=== PATIENT | female | born 1960 | race Caucasian/White ===

== ENCOUNTER 2017-05-13 08:10 | Day surgery (SDC) | payer OTHER ==
[~2017-05-13] VITALS: Ht 149.9 cm; Wt 56.0 kg
[~2017-05-13 08:10] MED LIST: CEFP500T PO
[2017-05-13] MEDS ORDERED: LIDOCAINE 1% MDV 20ML VIAL SQ PRN (08:30)
[2017-05-13] MEDS ORDERED: LR 1,000 ML IV ONE (08:30)
[2017-05-13] MEDS ORDERED: MIDAZOLAM INJ 2 MG/2 ML VIAL (J2250) As Ordered ONE (09:19)
[2017-05-13] MEDS ORDERED: SUCCINYLCHOLINE 100 MG/5 ML SYRINGE (J0330) As Ordered ONE (09:20)
[2017-05-13] MEDS ORDERED: PROPOFOL 200 MG/20 ML VIAL As Ordered ONE (09:20)
[2017-05-13] MEDS ORDERED: fentaNYL 250 MCG/5 ML INJECTION (J3010) As Ordered ONE (09:20)
[2017-05-13] MEDS ORDERED: dexameTHASONE 4 MG/ML 1ML VIAL (J1100) As Ordered ONE (09:23)
[2017-05-13] MEDS ORDERED: LIDOCAINE 2% INJ 100 MG/5 ML SDV (FOR ANES.) As Ordered ONE (09:23)
[2017-05-13] MEDS ORDERED: THROMBIN SOLN 20,000 UNITS KIT As Ordered ONE (10:31)
[2017-05-13] MEDS ORDERED: LIDOCAINE 1% MDV 20ML VIAL As Ordered ONE (10:31)
[2017-05-13] MEDS ORDERED: EPINEPHrine 1MG/10ML SYRINGE 1.5IN As Ordered ONE (10:32)
[2017-05-13] MEDS ORDERED: LR 1,000 ML IV SCH (12:00)
[2017-05-13] MEDS ORDERED: ONDANSETRON 4MG/2ML VIAL (J2405) IV PRN (12:00)
[2017-05-13] MEDS ORDERED: fentaNYL 100 MCG/2 ML INJECTION (J3010) IV PRN (12:00)
[2017-05-13 12:30] VITALS: BP 138/62
--- NOTE | 2017-05-13 12:30 | REP ---
PORTABLE CHEST: AP portable view of the chest is performed. I have no prior study for comparison. There appears to be consolidative collapse of the right upper lobe. There is elevation of the right hemidiaphragm. Linear atelectatic change is seen in the right lung base. There appears to be a right hilar mass. The left lung is free of infiltrate. The heart is normal in size. There is no pneumothorax. Signed by Ciro Gamboa MD 05/13/2017 03:48 P
--- NOTE | 2017-05-13 14:53 | RO ---
DATE OF PROCEDURE: 05/13/2017 PREOPERATIVE DIAGNOSES: Abnormal chest CT, right upper lobe mass. POSTPROCEDURE DIAGNOSES: Abnormal chest CT, right upper lobe mass. PROCEDURE: Bronchoscopy with endobronchial ultrasound and fine-needle aspiration. SURGEON: Edmund Zepeda DO ASSISTANT LIBRARIAN: MARTIN Sanchez ANESTHESIA: General. Please refer to their records for details. SPECIMENS OBTAINED: 1. Right upper lobe cytology brush. 2. Subcarinal node fine needle aspiration. 3. Right hilar node fine needle aspiration. 4. Right upper lobe endobronchial biopsy. Findings of a right upper lobe with airway obstruction. ESTIMATED BLOOD LOSS: 5-10 mL. No observed complications. DESCRIPTION OF PROCEDURE: After informed consent was reviewed with the patient in the preoperative area, the patient was brought back to operating room (OR) # 6. Time-out was performed with two patient identifiers identifying correct site, correct procedure. Patient was then placed under general anesthesia with an 8.5 endotracheal tube. The case was then handed over to me. Again, time-out was performed with two patient identifiers identifying correct site, correct procedure. Cetacaine spray was used to anesthetize the airway along with provide lubrication for the scope. The 1T190 bronchoscope was inserted into the endotracheal tube. All airways were viewed. Trachea was midline. Marcelina was sharp. Right and left mainstem bronchus was normal, except for minimal amounts of mucus. There was obvious abnormalities of the right upper lobe with complete occlusion of the right upper lobe with swollen tissue. The spur between the right upper lobe and the right lower lobe was full and splayed. The right middle lobe takeoff was [place], however, RB 4 and 5 were patent without endobronchial lesions. RB 6 through 10 were normal without endobronchial lesions. Left mainstem bronchus was normal. LB 1 through 10 was without endobronchial lesions. There was some banding and pitting on the left. Bronchoscope was then advanced into the right upper lobe. Cytology brush was advanced into the lesion. After cytology brushing was obtained, the scope was switched over to endobronchial ultrasound. Fine-needle aspiration was performed , first of the subcarinal node in separate CytoLyt from the then hilar node which was sampled, which was placed in separate CytoLyt. After adequate sampling, endobronchial ultrasound was removed. The 1T190 bronchoscope was then reinserted, airways were suctioned of heme, and forceps biopsies were taken. After assurance of hemostasis and adequate sampling, the bronchoscope was removed, and the patient was extubated and is in recovery. Postprocedure chest x-ray is pending. [facility]
== END 2017-05-13 12:35 | disposition home or self-care (01) ==
LOC: M SDC 08:10
PROVIDERS: ATTEND Internal Medicine Pulmonary Disease
DX: R91.8 Other nonspecific abnormal finding of lung field (principal); R94.2 Abnormal results of pulmonary function studies; Z87.891 Personal history of nicotine dependence; Z78.0 Asymptomatic menopausal state

== ENCOUNTER 2017-05-17 09:00 | Outpatient (RCR) | payer OTHER ==
--- NOTE | 2017-05-18 14:15 | RADONC ---
RADIATION ONCOLOGY CONSULTATION NOTE DATE: 05/17/2017 CHART NUMBER: [id number]. DIAGNOSIS: Right lung cancer. STAGE: Pending. ECOG PERFORMANCE STATUS: Zero. CONSULTATION NOTE: Ms. Elder a very pleasant, 56-year-old white female who is presenting to us today on an urgent basis with what appears to be impending SVC syndrome. HISTORY OF PRESENT ILLNESS: The patient was in her usual state of health until she recently developed a cough. She was seen by Dr. Zepeda on 05/11/2017 and an x-ray was done on 05/13/2017, which showed a consolidative atelectasis involving the right upper lobe. A CT scan was done on 05/04/2017 and showed an 8.5 cm x 6.7 cm x 6.4 cm mass in the right upper lobe of the lung. No significant lymphadenopathy was seen. No evidence of metastatic disease was seen. The patient was referred to Dr. Zepeda, who reviewed her scans and thought she had what appeared to be developing SVC syndrome. On 05/13/2017, the patient underwent endobronchial biopsy and fine needle aspiration of a right hilar lymph node. Both revealed moderate to poorly differentiated adenocarcinoma. The report was completed yesterday and we are seeing the patient this morning for consultation regarding the possibility of urgent radiation to her right upper lung mass. Pending so far are pulmonary function tests, a differential lung scan, a PET scan, MRI of the brain and other staging studies. PAST MEDICAL HISTORY: The patient's past medical history is noncontributory. She has been generally good health. ALLERGIES: The patient has NO KNOWN DRUG ALLERGIES. SOCIAL HISTORY: The patient has smoked for approximately 30 years. She quit in 2006. She drinks alcohol socially. FAMILY HISTORY: The patient's family history is negative for lung cancer or other malignancies. REVIEW OF SYSTEMS: The patient's review of systems is noncontributory. Denies nausea, vomiting, fevers, chills, night sweats, diplopia, headaches, anxiety or depression, anorexia, weight loss, visual disturbances, chest pain, urinary or bowel difficulties, bone pain, or neurological problems. PHYSICAL EXAMINATION: The patient is a well-developed, well-nourished, 56-year-old white woman, in no acute distress. HEENT exam is normocephalic, atraumatic. Extraocular movements are intact. There is no palpable cervical, supraclavicular, infraclavicular, axillary, or inguinal lymphadenopathy present. Lungs are clear to auscultation and percussion. Heart has a regular rate and rhythm. Abdomen is benign with no hepatosplenomegaly, masses, or tenderness. Skeletal examination reveals no tenderness to pressure or percussion of the bony skeleton. Extremities reveal no clubbing, cyanosis, or edema. Neurologic exam is grossly intact, as is the remainder of the physical examination. ASSESSMENT: Under the circumstances, clearly we plan on initiating radiation therapy to this patient. I believe she is a candidate for urgent radiation and I have so informed her. I have discussed with the patient in detail the potential benefits as well as possible acute and chronic sequelae of external beam radiation therapy. We have discussed logistics of treatment planning, simulation and subsequent fractionated daily radiation treatments. I have scheduled the patient for simulation this morning and radiation treatments will begin today. In light of the fact this is week, I plan on delivering two fractions of 300 cGy each to deliver 600 centigrade between today and tomorrow. In the meantime, she is scheduled for PET scanning for further staging as well as pulmonary function tests and differential lung scans. I have set her up for a medical oncology consult as well. Pending the results of those studies, fine tuning of her radiation carrera can be undertaken next week. The two fractions of 300 are well below our lung tolerance and should cause no subsequent problems with breathing in the future should her pulmonary functions be lower than anticipated. Once again, in summary, we are beginning radiation to this patient today and are planning to deliver two fractions of 600 cGy each this week. Following the holiday, we will lower the daily dose to 200 cGy per day and make fine adjustments to the treatment field if indicated pending the results of the PET scan. We await the expert opinions of our medical oncology group once her medical oncology consult is completed. Thank you for allowing us to participate that therapy in the care of this very pleasant woman. If I could be of any further assistance or provide you any information, please free to contact me anytime. As always, warm regards. cc this goes Dr. José spann a cc this goes to tato goncalves cc this will go to Dr. Kayla salter why that is it on [facility] consultation note from today cc: MD Ravi Hebert MD Rory Sears, DO FCCP MTDD
--- NOTE | 2017-05-24 08:59 | RADONC ---
RADIATION ONCOLOGY PROGRESS NOTE DATE OF SERVICE: 05/23/2017 CHART NUMBER: [id number] PROGRESS NOTE: Ms. Elder is presently at a dose of 800 cGy to her lung and is tolerating treatments quite well at this point with no complaints related to her radiation therapy. She reports that she might have a little bit of improvement in her breathing. REVIEW OF SYSTEMS: The patient's review of systems is positive for some shortness of breath but is otherwise noncontributory. She denies nausea, vomiting, fevers, chills, night sweats, diplopia, headaches, anxiety or depression, anorexia, weight loss, visual disturbances, chest pain, urinary or bowel difficulties, bone pain, or neurological problems. PHYSICAL EXAMINATION The patient's skin is in good condition with no evidence of radiation change present. There is no moist or dry desquamation. The remainder of her physical exam remains unchanged. Ms. Elder is tolerating treatments quite well, and radiation will continue as scheduled. We are still awaiting the results of the differential lung scan. An MRI of the brain is also being awaited for further staging. I did speak with Dr. Corazon Meade today on the phone. The patient saw her, and Dr. Meade is planning to begin chemotherapy on Tuesday for concomitant chemoradiation.
== END 2017-05-26 ==
LOC: M ONCR 09:00
PROVIDERS: ATTEND Radiology Radiation Oncology
DX: C34.11 Malignant neoplasm of upper lobe, right bronchus or lung (principal)

== ENCOUNTER → 2017-05-17 | Outpatient (CLI) | payer OTHER | LOC: M RAD 08:56 | PROVIDERS: ATTEND Radiology Radiation Oncology | DX: C34.11 Malignant neoplasm of upper lobe, right bronchus or lung (principal) ==

== ENCOUNTER → 2017-05-17 | Outpatient (CLI) | payer OTHER ==
--- NOTE | 2017-05-17 10:03 | PFTRPT ---
Site: [facility], [address] [place] [address], [id number] ID: [id number] Name: KALPESH FERRARA MEHRAN Doctor: Edmund Zepeda D.O. Tech: Ferdinand TAN RRT Age: 56 Sex: Female Race: Height: 59.50 Inches Weight: 122.00 Lbs BSA: 1.50 Diagnosis: C34.11 test meet the ATS standards for acceptability and repeatability. Pt was given four puffs of albuterol for postbronchodilator. Pre-Bronch Post-Bronch Pred Actual %Pred Actual %Chng SPIROMETRY FVC (L) 2.91 1.86 63 2.06 10 FEV1 (L) 2.28 1.23 53 1.45 17 FEV1/FVC (%) 79 66 83 70 6 FEF 25% (L/sec) 4.63 1.66 35 2.33 40 FEF 50% (L/sec) 3.78 0.95 25 1.37 43 FEF 75% (L/sec) 1.33 0.37 27 0.69 88 FEF 25-75% (L/sec) 2.32 0.78 33 1.23 56 FEF Max (L/sec) 5.88 2.48 42 2.71 9 FIVC (L) 1.77 2.10 18 FIF 50% (L/sec) 3.29 2.03 61 2.73 34 FIF Max (L/sec) 2.12 2.80 31 MVV (L/min) 85 42 49 LUNG VOLUMES SVC (L) 2.72 1.98 72 IC (L) 1.95 1.55 79 ERV (L) 0.77 0.44 56 TGV (L) 2.43 2.15 88 RV (Pleth) (L) 1.66 1.72 103 TLC (Pleth) (L) 4.38 3.70 84 RV/TLC (Pleth) (%) 37 46 125 DIFFUSION DLCOunc (ml/min/mmHg) 20.38 13.65 66 DLCOcor (ml/min/mmHg) 20.38 13.60 66 DL/VA (ml/min/mmHg/L) 4.65 4.82 103 VA (L) 4.38 2.82 64 AIRWAYS RESISTANCE Raw (cmH2O/L/s) 1.86 4.48 240 Gaw (L/s/cmH2O) 1.03 0.22 21 sRaw (cmH2O*s) 4.76 11.32 237 sGaw (1/cmH2O*s) 0.20 0.09 44 BLOOD GASES Hgb (gm/dL) 13.5
== END ==
LOC: M CARPUL 09:25
PROVIDERS: ATTEND Internal Medicine Pulmonary Disease
DX: C34.11 Malignant neoplasm of upper lobe, right bronchus or lung (principal)

== ENCOUNTER → 2017-05-17 | Outpatient (CLI) | payer OTHER ==
--- NOTE | 2017-05-17 10:50 | RADONC ---
RADIATION ONCOLOGY SIMULATION NOTE DATE OF SERVICE: 05/17/2017 CHART NUMBER: [id number] Ms. Elder was taken to the CT scan for CT simulation of her right lung field. CT was accomplished without difficulty or discomfort. Radiation treatment planning is underway, and radiation treatments will begin today. An immobilization device was created and will be used throughout the course of treatment. It was created without difficulty or discomfort. I was physically present throughout the course of CT simulation. We will treat the patient today and tomorrow prior to the . I have also ordered differential lung scans, pulmonary function tests, PET scans, and other workup to be undertaken. Final adjustments to the field can be made as indicated. I have also set up a consultation with medical oncology.
== END ==
LOC: M ONCR 08:05
PROVIDERS: ATTEND Radiology Radiation Oncology
DX: C34.90 Malignant neoplasm of unspecified part of unspecified bronchus or lung (principal)

== ENCOUNTER → 2017-05-18 | Outpatient (CLI) | payer OTHER ==
--- NOTE | 2017-05-18 12:21 | REP ---
PET/CT: History: Malignant neoplasm right upper lobe. Abnormal CT recently from [facility]. This is not available. Comparisons: Comparison is made with CT chest images from CT localization acquisition done May 17, 2017. TECHNIQUE: 50 minutes following the intravenous injection of a 10.6 mCi dose of F-18 FDG, three-dimensional PET scintigraphy is acquired from the skull base to the proximal thighs. Triplanar noncontrast CT scanning is acquired through the same anatomic range for attenuation correction, and image registration with scan parameters optimized to minimize radiation exposure to the patient. PET scintigraphy and CT datasets were fused and displayed on a workstation with multiplanar and projection display capability. PET/CT Findings: There is a large mass in the right suprahilar and right upper lobe distribution medially adjacent the mediastinum which is hypermetabolic. Hypermetabolic uptake is seen in a predominantly annular pattern suggesting some central necrosis in this mass. Maximum standard uptake value within the lesion is 16.9. The hypermetabolic mass measures 6.9 cm in greatest anteroposterior dimension. There is postobstructive collapse of the right upper lobe anterior and peripheral to this mass lesion. The right upper lobe bronchus is obstructed and the right middle lobe bronchus is narrowed. Some of the collapse is in the right middle lobe as well. No adrenal hypermetabolic uptake is seen. No other abnormal thoracic hypermetabolic uptake is observed. Head and neck soft tissues are unremarkable. In the abdomen and pelvis, no abnormality is seen. Impression: 6.8 cm hypermetabolic mass right suprahilar region with bronchial obstruction and post obstructive collapse right upper lobe and right middle lobe. No other abnormal hypermetabolic uptake seen. Signed by Villa Quijano MD 05/18/2017 01:40 P
== END ==
LOC: M PLARAD 09:28
PROVIDERS: ATTEND Internal Medicine Pulmonary Disease
DX: C34.90 Malignant neoplasm of unspecified part of unspecified bronchus or lung (principal)
CPT/HCPCS: 78815; A9552

== ENCOUNTER → 2017-05-23 | Outpatient (REF) | payer OTHER ==
[2017-05-23 18:02] LABS: INR 0.91
== END ==
LOC: M LAB REF 17:36
PROVIDERS: ATTEND Internal Medicine Medical Oncology
DX: C34.90 Malignant neoplasm of unspecified part of unspecified bronchus or lung (principal)

== ENCOUNTER 2017-05-27 14:12 | Outpatient (RCR) | payer OTHER | END 2017-06-26 | LOC: M ONCR 14:12 | DX: C34.11 Malignant neoplasm of upper lobe, right bronchus or lung (principal) | CPT/HCPCS: 77300 ==

== ENCOUNTER → 2017-05-30 | Outpatient (CLI) | payer OTHER ==
[~2017-05-30] MED LIST changes: +ADVA230A; +ADVA230A INH; +LEVO500T3; +LIDOCAINE 2% MDV 20 ML VIAL As Ordered ONE; +MIDAZOLAM INJ 2 MG/2 ML VIAL (J2250) As Ordered ONE; +MORP20SO; +MORP20SO PO; +NYST50SS; +NYST50SS SS; +ONDA8TAB7; +ONDA8TAB7 PO; +OXYC1TAB23 PO; +PANT20TA; +PANT20TA PO; +PERC5TAB12 PO; +PRED10TA2; +PRED10TA2 PO; +PROC10TA; +PROC10TA PO; +ceFAZolin 1GM INJ (J0690 PER 500MG) As Ordered ONE; +fentaNYL 100 MCG/2 ML INJECTION (J3010) As Ordered ONE
--- NOTE | 2017-06-15 10:45 | REPIR ---
DATE OF PROCEDURE: 05/30/2017 PREPROCEDURE DIAGNOSIS: Lung cancer, access required for chemotherapy. POSTPROCEDURE DIAGNOSIS: Lung cancer, access required for chemotherapy. PROCEDURE: Ultrasound and fluoroscopic guided left internal jugular vein 23 cm Port-a-Cath placement. SURGEON: Dr. Shira Ceballos. RETAIL BUYER: Debi Artis. ANESTHESIA: Local sedation with 2 mg versed, 50 mcg fentanyl, 20 mL of 2% lidocaine. Sedation time was from 1550 to 1605 for a total of 15 minutes with the sedation and cardiopulmonary monitoring performed by the RN in the room under my direct supervision. I was present for and directed the entire case. FLUORO TIME: 2.222 minutes. CONTRAST: None. PREOPERATIVE ANTIBIOTICS: 1 gram of Ancef. COMPLICATIONS: None. DRAINS: None. SPECIMENS: None. IMPLANTS: 23 cm left internal jugular vein Port-a-Cath. The patient is a 56-year-old female with lung cancer who requires chemotherapy. The patient will undergo placement of a Port-a-Cath for access for chemotherapy. Risks, benefits and alternative treatment options were discussed with the patient. DESCRIPTION OF PROCEDURE: The patient was taken to the angiography suite and placed supine on the angiography room table and then prepped and draped in a standard surgical fashion. Ultrasound was used to guide cannulation of the left internal jugular vein with real-time concurrent visualization of entry of the needle into the left internal jugular vein with a hard copy image preserved. The ultrasound showed the left internal jugular vein to be easily compressible, widely patent and free of thrombus. The micropuncture wire was then advanced through the micropuncture needle which was upsized to a micropuncture sheath. A J-wire, was advanced through the micropuncture sheath which was used to sequentially dilate the left internal jugular vein under fluoroscopic guidance and in introducer sheath positioned. The catheter had been tunneled from the incision in the left chest where the subcutaneous pocket was created to the entry site in the left internal jugular vein and then advanced through the introducer sheath which was peeled away and removed. The catheter was then placed under fluoroscopic guidance with the tip in the superior vena cava right atrial junction and then cut to 23 cm and attached to the port. The port was placed in the pocket and then the chest would was closed using #2-0 Vicryl in an inverted interrupted fashion. The puncture wound of the left neck was closed with #4-0 Monocryl in an inverted interrupted fashion. The port was accessed and noted to flush and aspirate easily. Dressings were then applied. The patient tolerated the procedure well. All instrument, sponge and needle counts were correct at the end of the case. There were no complications. Dr. Ceballos was present for and directed the entire case. The patient was transferred to the holding area and subsequently discharged. The port is stable for use for access. RADIOLOGIC SUPERVISION: The ultrasound was used to evaluate the left internal jugular vein, which was noted to be easily compressible, widely patent and free of thrombus. Ultrasound was used to guide cannulation of the left internal jugular vein with real-time concurrent visualization of entry of the needle into the left internal jugular vein performed with hard copy image preserved. The left internal jugular vein was the sequentially dilated under fluoroscopic guidance and the catheter positioned under fluoroscopic guidance. The final fluoroscopic image showed the catheter and port to be in good position and good alignment with no pneumothorax or hemothorax noted. The Port-a-Cath is stable for use for dialysis access.
== END | disposition home or self-care (01) ==
LOC: M IRPRO 14:21
PROVIDERS: ATTEND Surgery Vascular Surgery
DX: C34.90 Malignant neoplasm of unspecified part of unspecified bronchus or lung (principal)
CPT/HCPCS: 36561; 76937; 77001; 99152; C1788; C1894; J0690; J2250; J3010

== ENCOUNTER → 2017-05-31 | Outpatient (CLI) | payer OTHER ==
[~2017-05-31] MED LIST changes: -ADVA230A; -ADVA230A INH; -LEVO500T3; -LIDOCAINE 2% MDV 20 ML VIAL As Ordered ONE; -MIDAZOLAM INJ 2 MG/2 ML VIAL (J2250) As Ordered ONE; -MORP20SO; -MORP20SO PO; -NYST50SS; -NYST50SS SS; -ONDA8TAB7; -ONDA8TAB7 PO; -OXYC1TAB23 PO; -PANT20TA; -PANT20TA PO; -PERC5TAB12 PO; -PRED10TA2; -PRED10TA2 PO; -PROC10TA; -PROC10TA PO; -ceFAZolin 1GM INJ (J0690 PER 500MG) As Ordered ONE; -fentaNYL 100 MCG/2 ML INJECTION (J3010) As Ordered ONE
--- NOTE | 2017-05-31 18:54 | REP ---
Nuclear medicine lung. Differential function ventilation perfusion scan 05/31/2017. Clinical history: Lung carcinoma on the right. Comparison: Chest x-ray today. The patient received 1 mCi technetium 99m MAA via an IV. Followed by 2 mCi technetium 99m DTPA aerosol for ventilation. Anterior and posterior ventilation and perfusion images performed and differential counts for both phases were provided. Geometric mean perfusion: Left Right Upper 17.97% 9.68% Mid 34.77% 22.01% Lower 14.81% 0.76% PA metric mean ventilation: Left Right Upper 19.6% 14.93% Middle 42.47% 10.96% Lower 11.28% 0.75% Significant differences between the right and left lungs in the lower lung zones related to elevated diaphragm on the right. The major difference is the lesser perfusion and ventilation in the upper lobe on the right. Signed by Sahil Leon MD 05/31/2017 08:42 P
--- NOTE | 2017-06-01 07:10 | REP ---
CHEST X-RAY: CLINICAL: History of lung cancer. TECHNIQUE: PA and lateral. COMPARISON: 05/13/2017 FINDINGS: Postsurgical changes involving the right hemithorax are appreciated. Triangular opacification involving the right upper lung zone is slightly improved compared to the prior examination and may reflect postoperative changes or collapse of the right upper lobe. Elevation to the right hemidiaphragm is unchanged and consistent with volume loss due to recent surgery. The left hemithorax is well aerated and clear. The visualized portions of the mediastinum and cardiac silhouette are stable and within normal limits. Infusaport identified with tip in the SVC. Skeletal structure is intact. IMPRESSION: Right upper lobe opacification may reflect postoperative changes and/or partial collapse. Findings may be slightly improved when compared to the previous examination. Signed by Trevor Marshall MD 06/05/2017 11:56 P
== END ==
LOC: M RAD 12:44
PROVIDERS: ATTEND Radiology Radiation Oncology
DX: C34.90 Malignant neoplasm of unspecified part of unspecified bronchus or lung (principal)

== ENCOUNTER → 2017-06-17 | Outpatient (CLI) | payer OTHER ==
[~2017-06-17] MED LIST changes: +ADVA230A; +ADVA230A INH; +LEVO500T3; +MORP20SO; +MORP20SO PO; +NYST50SS; +NYST50SS SS; +ONDA8TAB7; +ONDA8TAB7 PO; +OXYC1TAB23 PO; +PANT20TA; +PANT20TA PO; +PERC5TAB12 PO; +PRED10TA2; +PRED10TA2 PO; +PROC10TA; +PROC10TA PO; +PROHANCE 279.3MG/ML 15ML VIAL (A9576) As Ordered ONE
--- NOTE | 2017-06-22 09:44 | REP ---
MR BRAIN WITHOUT AND WITH CONTRAST: HISTORY: Lung carcinoma. CONTRAST: ProHance 10.8 mL Several punctate areas of increased signal intensity on T2-weighted images are present in the subcortical white matter. This represents small vessel ischemic disease. There is no intraparenchymal hemorrhage, infarct, mass or midline shift. There is no abnormal enhancement. The ventricular system is normal in appearance. There is no extracerebral collection. The sinuses are clear. IMPRESSION: Minimal small vessel ischemic disease. Signed by Karthikeyan Paige MD 06/22/2017 10:08 A
== END ==
LOC: M RAD 14:13
PROVIDERS: ATTEND Radiology Radiation Oncology
DX: C34.91 Malignant neoplasm of unspecified part of right bronchus or lung (principal); I73.9 Peripheral vascular disease, unspecified
CPT/HCPCS: 70553; A9576

== ENCOUNTER 2017-06-19 12:02 | Emergency (ER) | payer OTHER ==
[2017-06-19] MEDS: NS 1,000 ML IV ×2 (13:34→15:48)
[2017-06-19] MEDS: MORPHINE 2 MG/ML 1ML SYRINGE IV ×4 (13:34→16:27)
[2017-06-19] MEDS: ONDANSETRON 4MG/2ML VIAL (J2405) IV (13:34)
[2017-06-19 13:44] LABS: BASO % 0.9 % (0.0-1.0); EOS % 0.9 % (0.0-3.0); LYMPH # 0.3 10^3/uL (1.5-4.5); LYMPH % 24.5 % (24.0-44.0); MEAN CORPUSCULAR HEMOGLOBIN 29.5 pg (27.0-33.0); MEAN CORPUSCULAR HGB CONC 33.6 g/dl (32.0-36.5); MEAN CORPUSCULAR VOLUME 87.9 fl (80.0-96.0); MONO # 0.3 10^3/uL (0.0-0.8); MONO % 29.2 % (0.0-5.0); NEUTROPHILS % 44.5 % (36.0-66.0); PLATELET COUNT, AUTOMATED 164 10^3/uL (150-450); RED CELL DISTRIBUTION WIDTH 12.5 % (11.5-14.5)
[2017-06-19 13:58] LABS: LACTIC ACID SEPSIS PROTOCOL 0.9 MMOL/L (0.4-2.0)
[2017-06-19 13:58] LABS: ALBUMIN 3.4 GM/DL (3.2-5.2); ALBUMIN/GLOBULIN RATIO 0.81 (1.00-1.93); ALKALINE PHOSPHATASE 78 U/L (45-117); ALT/SGPT 31 U/L (12-78); ANION GAP 11 MEQ/L (8-16); AST/SGOT 27 U/L (7-37); BILIRUBIN,DIRECT 0.1 MG/DL (0.0-0.2); BILIRUBIN,TOTAL 0.4 MG/DL (0.2-1.0); BLOOD UREA NITROGEN 33 MG/DL (7-18); CARBON DIOXIDE LEVEL 25 MEQ/L (21-32); CHLORIDE LEVEL 104 MEQ/L (98-107); CREATININE FOR GFR 0.63 MG/DL (0.55-1.02); GLOMERULAR FILTRATION RATE > 60.0 (>51); GLUCOSE, FASTING 81 MG/DL (70-105); POTASSIUM SERUM 3.6 MEQ/L (3.5-5.1); SODIUM LEVEL 140 MEQ/L (136-145); TOTAL PROTEIN 7.6 GM/DL (6.4-8.2)
[2017-06-19 13:59] LABS: INR 0.96
[2017-06-19 14:07] LABS: NEUTROPHILS # 0.5 10^3/uL (1.8-7.7); POS COUNT POS FLAG; POSITIVE DIFF POS FLAG; WHITE BLOOD COUNT 1.1 10^3/uL (4.0-10.0)
[2017-06-19] MEDS: AQUAPHOR **100GM** OINT TOP (17:05)
== END 2017-06-19 17:09 | disposition home or self-care (01) ==
LOC: M ED 12:02
DX: E86.0 Dehydration (principal); D72.819 Decreased white blood cell count, unspecified; R07.0 Pain in throat; C34.90 Malignant neoplasm of unspecified part of unspecified bronchus or lung; Z87.891 Personal history of nicotine dependence
CPT/HCPCS: J2405

== ENCOUNTER 2017-06-20 23:17 | Inpatient (IN) | payer OTHER ==
[2017-06-21] MEDS: HYDROmorphone HCL 1 MG/ML SYRINGE (J1170) IV ×5 (01:15→19:51)
[2017-06-21] MEDS: NS 1,000 ML IV (01:15)
[2017-06-21 01:46] LABS: HEMATOCRIT 29.4 % (36.0-47.0); LYMPH # 0.3 10^3/uL (1.5-4.5); LYMPH % 24.8 % (24.0-44.0); MEAN CORPUSCULAR HEMOGLOBIN 29.8 pg (27.0-33.0); MEAN CORPUSCULAR HGB CONC 33.3 g/dl (32.0-36.5); MEAN CORPUSCULAR VOLUME 89.4 fl (80.0-96.0); MONO # 0.4 10^3/uL (0.0-0.8); MONO % 38.6 % (0.0-5.0); NEUTROPHILS % 33.6 % (36.0-66.0); PLATELET COUNT, AUTOMATED 156 10^3/uL (150-450); RED BLOOD COUNT 3.29 10^6/uL (4.00-5.40); RED CELL DISTRIBUTION WIDTH 12.4 % (11.5-14.5)
[2017-06-21 02:03] LABS: HEMOGLOBIN 9.8 g/dl (12.0-16.0); NEUTROPHILS # 0.3 10^3/uL (1.8-7.7); POS COUNT POS FLAG; POSITIVE DIFF POS FLAG
[2017-06-21 02:10] LABS: LACTIC ACID SEPSIS PROTOCOL 0.7 MMOL/L (0.4-2.0)
[2017-06-21] MEDS: PIPERACILLIN/TAZOBACTAM SOD 3.375 GM in APPROPRIATE DILUENT 1 EA IV ×4 (02:15→19:50)
[2017-06-21 02:35] LABS: ALBUMIN 3.1 GM/DL (3.2-5.2); ALBUMIN/GLOBULIN RATIO 1.03 (1.00-1.93); ALKALINE PHOSPHATASE 66 U/L (45-117); ALT/SGPT 21 U/L (12-78); ANION GAP 10 MEQ/L (8-16); AST/SGOT 22 U/L (7-37); BILIRUBIN,DIRECT 0.1 MG/DL (0.0-0.2); BILIRUBIN,TOTAL 0.3 MG/DL (0.2-1.0); BLOOD UREA NITROGEN 22 MG/DL (7-18); CALCIUM LEVEL 8.5 MG/DL (8.5-10.1); CARBON DIOXIDE LEVEL 25 MEQ/L (21-32); CHLORIDE LEVEL 110 MEQ/L (98-107); GLOMERULAR FILTRATION RATE > 60.0 (>51); GLUCOSE, FASTING 81 MG/DL (70-105); POTASSIUM SERUM 3.5 MEQ/L (3.5-5.1); SODIUM LEVEL 145 MEQ/L (136-145); TOTAL PROTEIN 6.1 GM/DL (6.4-8.2)
[2017-06-21] MEDS ORDERED: ACETAMINOPHEN TAB 650MG DOSE (2X325MG) PO (04:15)
[2017-06-21] MEDS ORDERED: HYDROmorphone HCL 1 MG/ML SYRINGE (J1170) IV (04:15)
[2017-06-21] MEDS ORDERED: PROCHLORPERAZINE 5 MG TAB (S0183) PO (04:15)
[2017-06-21] MEDS: D5W/0.9% SODIUM CHLORIDE 1,000 ML IV ×3 (05:30→21:55)
[2017-06-21 05:44] LABS: BASO % 0.9 % (0.0-1.0); EOS % 1.9 % (0.0-3.0); HEMATOCRIT 26.4 % (36.0-47.0); HEMOGLOBIN 8.9 g/dl (12.0-16.0); LYMPH # 0.3 10^3/uL (1.5-4.5); LYMPH % 29.6 % (24.0-44.0); MEAN CORPUSCULAR HEMOGLOBIN 30.1 pg (27.0-33.0); MEAN CORPUSCULAR HGB CONC 33.7 g/dl (32.0-36.5); MEAN CORPUSCULAR VOLUME 89.2 fl (80.0-96.0); MONO # 0.4 10^3/uL (0.0-0.8); NEUTROPHILS % 29.6 % (36.0-66.0); PLATELET COUNT, AUTOMATED 106 10^3/uL (150-450); RED BLOOD COUNT 2.96 10^6/uL (4.00-5.40); RED CELL DISTRIBUTION WIDTH 12.5 % (11.5-14.5)
[2017-06-21 05:45] LABS: NEUTROPHILS # 0.3 10^3/uL (1.8-7.7); POS COUNT POS FLAG; POSITIVE DIFF POS FLAG; WHITE BLOOD COUNT 1.1 10^3/uL (4.0-10.0)
[2017-06-21 05:58] LABS: ANION GAP 9 MEQ/L (8-16); BLOOD UREA NITROGEN 19 MG/DL (7-18); CALCIUM LEVEL 7.7 MG/DL (8.5-10.1); CARBON DIOXIDE LEVEL 24 MEQ/L (21-32); CHLORIDE LEVEL 114 MEQ/L (98-107); CREATININE FOR GFR 0.51 MG/DL (0.55-1.02); GLOMERULAR FILTRATION RATE > 60.0 (>51); GLUCOSE, FASTING 83 MG/DL (70-105); POTASSIUM SERUM 3.3 MEQ/L (3.5-5.1); SODIUM LEVEL 147 MEQ/L (136-145)
[2017-06-21] MEDS: VANCOMYCIN HCL 1,000 MG, VIAL MATE ADAPTER 1 EACH in D5W 250 ML IV ×3 (06:00→21:55)
[2017-06-21] MEDS: ADVAIR HFA 230/21MCG INHALER INH ×2 (09:23→21:37)
[2017-06-21] MEDS: PANTOPRAZOLE 40MG INJ (PROTONIX) (C9113) IV (09:49)
[2017-06-21] MEDS: methylPREDNISolone INJ 40 MG/1 ML VIAL (J2920) IV (09:50)
[2017-06-21] MEDS: ENOXAPARIN 40 MG/0.4 ML SYRINGE (J1650) SC (09:51)
[2017-06-21] MEDS: NYSTATIN 500,000 U/5 ML SUSP UDC SS ×4 (10:33→21:54)
[2017-06-21] MEDS: POTASSIUM CHLORIDE 10 MEQ SR TABLET PO (12:33)
[2017-06-21] MEDS: HYDROmorphone HCL 2 MG/ML 1ML VIAL (J1170) IV ×4 (12:35→23:50)
[2017-06-21] MEDS ORDERED: MAGIC MOUTHWASH SUSPENSION BTL SS (13:15)
[2017-06-21] MEDS: AQUAPHOR **100GM** OINT TOP ×3 (14:51→23:49)
[2017-06-21] MEDS: KCL 10MEQ IN 100ML SWI (KRUN) 10 MEQ in APPROPRIATE DILUENT 1 EA IV ×3 (14:51→17:55)
[2017-06-21] MEDS: MAGIC MOUTHWASH SUSPENSION BTL SS (14:51)
[2017-06-22] MEDS: ACETAMINOPHEN 650 MG SUPP PR (02:09)
[2017-06-22] MEDS: SODIUM CHLORIDE 0.9% 500 ML IV (02:34)
[2017-06-22 03:12] LABS: ALBUMIN 2.9 GM/DL (3.2-5.2); ANION GAP 11 MEQ/L (8-16); BLOOD UREA NITROGEN 12 MG/DL (7-18); CALCIUM LEVEL 7.6 MG/DL (8.5-10.1); CARBON DIOXIDE LEVEL 24 MEQ/L (21-32); CHLORIDE LEVEL 114 MEQ/L (98-107); CREATININE FOR GFR 0.84 MG/DL (0.55-1.02); GLUCOSE, FASTING 127 MG/DL (70-105); MAGNESIUM LEVEL 1.7 MG/DL (1.8-2.4); PHOSPHORUS LEVEL 1.7 MG/DL (2.5-4.9); POTASSIUM SERUM 3.5 MEQ/L (3.5-5.1); SODIUM LEVEL 149 MEQ/L (136-145)
[2017-06-22 03:19] LABS: GLOMERULAR FILTRATION RATE > 60.0 (>51)
[2017-06-22] MEDS: PIPERACILLIN/TAZOBACTAM SOD 3.375 GM in APPROPRIATE DILUENT 1 EA IV ×4 (03:33→20:35)
[2017-06-22] MEDS: HYDROmorphone HCL 1 MG/ML SYRINGE (J1170) IV ×7 (03:35→20:36)
[2017-06-22] MEDS: MAG SULF 1GM/100ML (MAG RUN) 1 GM in APPROPRIATE DILUENT 1 EA IV (04:42)
[2017-06-22 05:48] LABS: HEMOGLOBIN 8.3 g/dl (12.0-16.0); LYMPH % 11.4 % (24.0-44.0); MEAN CORPUSCULAR HEMOGLOBIN 29.9 pg (27.0-33.0); MEAN CORPUSCULAR HGB CONC 33.2 g/dl (32.0-36.5); MEAN CORPUSCULAR VOLUME 89.9 fl (80.0-96.0); MONO # 0.4 10^3/uL (0.0-0.8); NEUTROPHILS % 47.6 % (36.0-66.0); PLATELET COUNT, AUTOMATED 123 10^3/uL (150-450); RED BLOOD COUNT 2.78 10^6/uL (4.00-5.40); RED CELL DISTRIBUTION WIDTH 12.6 % (11.5-14.5)
[2017-06-22 06:05] LABS: ANION GAP 6 MEQ/L (8-16); BLOOD UREA NITROGEN 9 MG/DL (7-18); CALCIUM LEVEL 7.4 MG/DL (8.5-10.1); CARBON DIOXIDE LEVEL 27 MEQ/L (21-32); CHLORIDE LEVEL 115 MEQ/L (98-107); CREATININE FOR GFR 0.83 MG/DL (0.55-1.02); GLOMERULAR FILTRATION RATE > 60.0 (>51); GLUCOSE, FASTING 161 MG/DL (70-105); POTASSIUM SERUM 3.3 MEQ/L (3.5-5.1); SODIUM LEVEL 148 MEQ/L (136-145)
[2017-06-22] MEDS: POTASSIUM PHOSPHATE INJ 15 MMOL in D5W 250 ML IV (06:13)
[2017-06-22] MEDS: AQUAPHOR **100GM** OINT TOP ×4 (06:14→21:13)
[2017-06-22 06:17] LABS: ADD MANUAL DIFFER NO; DIFF SLIDE NUMBER 61; LYMPH # 0.1 10^3/uL (1.5-4.5); NEUTROPHILS # 0.5 10^3/uL (1.8-7.7); POS COUNT POS FLAG; POSITIVE DIFF POS FLAG; WHITE BLOOD COUNT 1.1 10^3/uL (4.0-10.0)
[2017-06-22] MEDS ORDERED: KCL 20MEQ IN D5W 1000ML 1,000 ML IV (07:00)
[2017-06-22 07:17] LABS: MAGNESIUM LEVEL 2.3 MG/DL (1.8-2.4)
[2017-06-22] MEDS: ADVAIR HFA 230/21MCG INHALER INH ×2 (07:47→21:06)
[2017-06-22] MEDS: KCL 20MEQ IN D5W 1000ML 1,000 ML IV ×4 (07:52→22:49)
[2017-06-22] MEDS ORDERED: HYDROmorphone HCL 1 MG/ML SYRINGE (J1170) IV (09:00)
[2017-06-22] MEDS: FILGRASTIM 300 MCG/0.5 ML SYRINGE (J1442 PER 1MCG) SC (09:15)
[2017-06-22] MEDS: methylPREDNISolone INJ 40 MG/1 ML VIAL (J2920) IV (09:15)
[2017-06-22] MEDS: PANTOPRAZOLE 40MG INJ (PROTONIX) (C9113) IV (09:15)
[2017-06-22] MEDS: NYSTATIN 500,000 U/5 ML SUSP UDC SS ×5 (09:15→17:33)
[2017-06-22] MEDS: ENOXAPARIN 40 MG/0.4 ML SYRINGE (J1650) SC (09:16)
[2017-06-22] MEDS: VANCOMYCIN HCL 1,000 MG, VIAL MATE ADAPTER 1 EACH in D5W 250 ML IV ×2 (10:00→22:00)
[2017-06-22 10:01] LABS: APPEARANCE, URINE CLEAR (CLEAR); BACTERIA, URINE AUTO NEGATIVE (NEGATIVE); BILIRUBIN, URINE AUTO NEGATIVE (NEGATIVE); BLOOD, URINE BLOOD NEGATIVE (NEGATIVE); COLOR, URINE YELLOW (YELLOW); GLUCOSE, URINE (UA) AUTO NEGATIVE (NEGATIVE); KETONE, URINE AUTO NEGATIVE (NEGATIVE); LEUKOCYTE ESTERASE, URINE AUTO NEGATIVE (NEGATIVE); MUCUS, URINE SMALL (NEGATIVE); NITRITE, URINE AUTO NEGATIVE (NEGATIVE); PROTEIN, URINE AUTO NEGATIVE (NEGATIVE); RBC, URINE AUTO 2 /HPF (0-3); SPECIFIC GRAVITY URINE AUTO 1.013 (1.002-1.035); SQUAMOUS EPITHELIAL CELL UR AU 1 /HPF (0-6); UROBILINOGEN, URINE AUTO 0.2 mg/dL (0.0-2.0); WBC, URINE AUTO 2 /HPF (0-3)
[2017-06-22 11:41] LABS: VANCOMYCIN LEVEL TROUGH 8.3 UG/ML (10.0-20.0)
[2017-06-23] MEDS: PIPERACILLIN/TAZOBACTAM SOD 3.375 GM in APPROPRIATE DILUENT 1 EA IV ×4 (02:33→19:48)
[2017-06-23] MEDS: HYDROmorphone HCL 1 MG/ML SYRINGE (J1170) IV ×2 (02:39→05:47)
[2017-06-23] MEDS: AQUAPHOR **100GM** OINT TOP ×3 (05:24→17:36)
[2017-06-23 06:17] LABS: HEMATOCRIT 26.7 % (36.0-47.0); HEMOGLOBIN 8.9 g/dl (12.0-16.0); MEAN CORPUSCULAR HEMOGLOBIN 29.8 pg (27.0-33.0); MEAN CORPUSCULAR HGB CONC 33.3 g/dl (32.0-36.5); MEAN CORPUSCULAR VOLUME 89.3 fl (80.0-96.0); PLATELET COUNT, AUTOMATED 154 10^3/uL (150-450); RED BLOOD COUNT 2.99 10^6/uL (4.00-5.40); RED CELL DISTRIBUTION WIDTH 12.7 % (11.5-14.5); WHITE BLOOD COUNT 3.4 10^3/uL (4.0-10.0)
[2017-06-23 06:37] LABS: ADD MANUAL DIFFER YES; DIFF SLIDE NUMBER 43; LEFT SHIFT POS FLAG; POS COUNT POS FLAG; POSITIVE DIFF POS FLAG; POSITIVE MORPH POS FLAG; WBC SCAT POS FLAG
[2017-06-23 06:38] LABS: ANION GAP 8 MEQ/L (8-16); BLOOD UREA NITROGEN 6 MG/DL (7-18); CALCIUM LEVEL 6.9 MG/DL (8.5-10.1); CARBON DIOXIDE LEVEL 23 MEQ/L (21-32); CHLORIDE LEVEL 110 MEQ/L (98-107); GLOMERULAR FILTRATION RATE > 60.0 (>51); GLUCOSE, FASTING 114 MG/DL (70-105); POTASSIUM SERUM 3.3 MEQ/L (3.5-5.1); SODIUM LEVEL 141 MEQ/L (136-145)
[2017-06-23] MEDS: ADVAIR HFA 230/21MCG INHALER INH ×2 (07:38→20:34)
[2017-06-23 07:42] LABS: ANISOCYTOSIS 1+; ATYPICAL LYMPH 3 % (0-5); BANDS 4 % (< 11); LYMPHOCYTES 18 % (16-52); METAMYELOCYTES 3 % (0-0); MONOCYTES 14 % (0-8); MYELOCYTES 3 % (0-0); NEUTROPHILS 55 % (35-75); PLATELET ESTIMATE NORMAL (NORMAL)
[2017-06-23] MEDS: methylPREDNISolone INJ 40 MG/1 ML VIAL (J2920) IV (08:34)
[2017-06-23] MEDS: PANTOPRAZOLE 40MG INJ (PROTONIX) (C9113) IV (08:34)
[2017-06-23] MEDS: ENOXAPARIN 40 MG/0.4 ML SYRINGE (J1650) SC (08:35)
[2017-06-23] MEDS: KETOROLAC 30 MG/ML VIAL (J1885) IV ×2 (08:36→17:32)
[2017-06-23] MEDS: VANCOMYCIN HCL 1,000 MG, VIAL MATE ADAPTER 1 EACH in D5W 250 ML IV (10:00)
[2017-06-23] MEDS: FILGRASTIM 300 MCG/0.5 ML SYRINGE (J1442 PER 1MCG) SC (10:05)
[2017-06-23] MEDS: KCL 20MEQ IN D5W 1000ML 1,000 ML IV (10:42)
[2017-06-23] MEDS: KCL 10MEQ IN 100ML SWI (KRUN) 10 MEQ in APPROPRIATE DILUENT 1 EA IV ×2 (12:14→13:21)
[2017-06-23] MEDS: ONDANSETRON 4MG/2ML VIAL (J2405) IV ×2 (14:22→19:44)
[2017-06-23] MEDS: PROMETHAZINE INJ 25 MG/ML VIAL (J2550) IV (17:20)
[2017-06-23 21:46] LABS: VANCOMYCIN LEVEL TROUGH 23.2 UG/ML (10.0-20.0)
[2017-06-24] MEDS: AQUAPHOR **100GM** OINT TOP ×4 (00:08→18:00)
[2017-06-24] MEDS: KCL 20MEQ IN D5W 1000ML 1,000 ML IV ×2 (00:08→11:37)
[2017-06-24] MEDS: PIPERACILLIN/TAZOBACTAM SOD 3.375 GM in APPROPRIATE DILUENT 1 EA IV ×4 (03:02→20:01)
[2017-06-24] MEDS: HYDROmorphone HCL 1 MG/ML SYRINGE (J1170) IV (05:06)
[2017-06-24] MEDS: VANCOMYCIN HCL 1,000 MG, VIAL MATE ADAPTER 1 EACH in D5W 250 ML IV (05:07)
[2017-06-24 05:44] LABS: ANION GAP 8 MEQ/L (8-16); BLOOD UREA NITROGEN 5 MG/DL (7-18); CALCIUM LEVEL 7.7 MG/DL (8.5-10.1); CARBON DIOXIDE LEVEL 27 MEQ/L (21-32); CHLORIDE LEVEL 108 MEQ/L (98-107); CREATININE FOR GFR 1.17 MG/DL (0.55-1.02); GLOMERULAR FILTRATION RATE 51.3 (>51); GLUCOSE, FASTING 107 MG/DL (70-105); POTASSIUM SERUM 3.6 MEQ/L (3.5-5.1); SODIUM LEVEL 143 MEQ/L (136-145)
[2017-06-24 05:58] LABS: HEMATOCRIT 26.8 % (36.0-47.0); HEMOGLOBIN 9.1 g/dl (12.0-16.0); MEAN CORPUSCULAR HEMOGLOBIN 30.2 pg (27.0-33.0); PLATELET COUNT, AUTOMATED 197 10^3/uL (150-450); RED BLOOD COUNT 3.01 10^6/uL (4.00-5.40); RED CELL DISTRIBUTION WIDTH 12.9 % (11.5-14.5)
[2017-06-24 06:03] LABS: POS COUNT POS FLAG; POSITIVE MORPH POS FLAG
[2017-06-24 06:04] LABS: ADD MANUAL DIFFER YES; DIFF SLIDE NUMBER 87; LEFT SHIFT POS FLAG; WBC SCAT POS FLAG
[2017-06-24 06:34] LABS: ANISOCYTOSIS 1+; ATYPICAL LYMPH 1 % (0-5); BANDS 2 % (< 11); LYMPHOCYTES 12 % (16-52); METAMYELOCYTES 4 % (0-0); MONOCYTES 7 % (0-8); MYELOCYTES 2 % (0-0); NEUTROPHILS 72 % (35-75); PLATELET ESTIMATE NORMAL (NORMAL)
[2017-06-24] MEDS: ADVAIR HFA 230/21MCG INHALER INH ×2 (07:35→20:18)
[2017-06-24] MEDS: methylPREDNISolone INJ 40 MG/1 ML VIAL (J2920) IV (09:41)
[2017-06-24] MEDS: PANTOPRAZOLE 40MG INJ (PROTONIX) (C9113) IV (09:41)
[2017-06-24] MEDS: ENOXAPARIN 40 MG/0.4 ML SYRINGE (J1650) SC (09:41)
[2017-06-24] MEDS: FILGRASTIM 300 MCG/0.5 ML SYRINGE (J1442 PER 1MCG) SC (11:38)
[2017-06-24] MEDS: KETOROLAC 30 MG/ML VIAL (J1885) IV (13:48)
[2017-06-24 22:21] LABS: VANCOMYCIN LEVEL TROUGH 22.4 UG/ML (10.0-20.0)
[2017-06-25] MEDS: AQUAPHOR **100GM** OINT TOP ×4 (00:34→17:29)
[2017-06-25] MEDS: KCL 20MEQ IN D5W 1000ML 1,000 ML IV (00:35)
[2017-06-25] MEDS: PIPERACILLIN/TAZOBACTAM SOD 3.375 GM in APPROPRIATE DILUENT 1 EA IV ×2 (02:14→08:33)
[2017-06-25] MEDS: ONDANSETRON 4MG/2ML VIAL (J2405) IV (03:00)
[2017-06-25] MEDS: ACETAMINOPHEN 650 MG SUPP PR (03:42)
[2017-06-25] MEDS: VANCOMYCIN HCL 750 MG, VIAL MATE ADAPTER 1 EACH in D5W 250 ML IV (03:42)
[2017-06-25] MEDS: HYDROmorphone HCL 1 MG/ML SYRINGE (J1170) IV ×3 (03:50→18:53)
[2017-06-25 05:13] LABS: HEMATOCRIT 28.1 % (36.0-47.0); HEMOGLOBIN 9.4 g/dl (12.0-16.0); MEAN CORPUSCULAR HEMOGLOBIN 29.9 pg (27.0-33.0); MEAN CORPUSCULAR HGB CONC 33.5 g/dl (32.0-36.5); MEAN CORPUSCULAR VOLUME 89.5 fl (80.0-96.0); PLATELET COUNT, AUTOMATED 184 10^3/uL (150-450); RED BLOOD COUNT 3.14 10^6/uL (4.00-5.40); RED CELL DISTRIBUTION WIDTH 13.2 % (11.5-14.5); WHITE BLOOD COUNT 10.5 10^3/uL (4.0-10.0)
[2017-06-25 05:27] LABS: LEFT SHIFT POS FLAG; POS COUNT POS FLAG; POSITIVE MORPH POS FLAG; WBC SCAT POS FLAG
[2017-06-25 05:28] LABS: ADD MANUAL DIFFER YES; DIFF SLIDE NUMBER 14
[2017-06-25 05:33] LABS: ANION GAP 6 MEQ/L (8-16); BLOOD UREA NITROGEN 6 MG/DL (7-18); CALCIUM LEVEL 8.4 MG/DL (8.5-10.1); CARBON DIOXIDE LEVEL 28 MEQ/L (21-32); CHLORIDE LEVEL 110 MEQ/L (98-107); GLOMERULAR FILTRATION RATE 35.8 (>51); GLUCOSE, FASTING 112 MG/DL (70-105); POTASSIUM SERUM 3.8 MEQ/L (3.5-5.1); SODIUM LEVEL 144 MEQ/L (136-145)
[2017-06-25 06:26] LABS: ATYPICAL LYMPH 1 % (0-5); BANDS 4 % (< 11); LYMPHOCYTES 4 % (16-52); METAMYELOCYTES 2 % (0-0); MONOCYTES 9 % (0-8); NEUTROPHILS 80 % (35-75)
[2017-06-25 06:27] LABS: TOXIC GRANULATION 2+
[2017-06-25 06:28] LABS: PLATELET ESTIMATE NORMAL (NORMAL)
[2017-06-25] MEDS: ADVAIR HFA 230/21MCG INHALER INH ×2 (07:22→22:32)
[2017-06-25] MEDS: D5W 1,000 ML IV ×2 (07:48→13:49)
[2017-06-25] MEDS: ENOXAPARIN 30 MG/0.3 ML SYR (J1650) SC (08:32)
[2017-06-25] MEDS: methylPREDNISolone INJ 40 MG/1 ML VIAL (J2920) IV (08:32)
[2017-06-25] MEDS: PANTOPRAZOLE 40MG INJ (PROTONIX) (C9113) IV (08:33)
[2017-06-25] MEDS: PIPERACILLIN/TAZOBACTAM SOD 2.25 GM in APPROPRIATE DILUENT 1 EA IV ×2 (13:48→20:33)
[2017-06-25] MEDS: PROMETHAZINE INJ 25 MG/ML VIAL (J2550) IV (14:35)
[2017-06-25 20:39] LABS: ANION GAP 8 MEQ/L (8-16); BLOOD UREA NITROGEN 7 MG/DL (7-18); CALCIUM LEVEL 8.5 MG/DL (8.5-10.1); CARBON DIOXIDE LEVEL 28 MEQ/L (21-32); CHLORIDE LEVEL 108 MEQ/L (98-107); CREATININE FOR GFR 1.44 MG/DL (0.55-1.02); GLOMERULAR FILTRATION RATE 40.4 (>51); GLUCOSE, FASTING 85 MG/DL (70-105); POTASSIUM SERUM 3.9 MEQ/L (3.5-5.1); SODIUM LEVEL 144 MEQ/L (136-145)
[2017-06-26] MEDS: PIPERACILLIN/TAZOBACTAM SOD 2.25 GM in APPROPRIATE DILUENT 1 EA IV ×4 (02:52→19:54)
[2017-06-26 05:06] LABS: HEMATOCRIT 27.7 % (36.0-47.0); HEMOGLOBIN 9.3 g/dl (12.0-16.0); MEAN CORPUSCULAR HEMOGLOBIN 30.2 pg (27.0-33.0); MEAN CORPUSCULAR HGB CONC 33.6 g/dl (32.0-36.5); MEAN CORPUSCULAR VOLUME 89.9 fl (80.0-96.0); PLATELET COUNT, AUTOMATED 194 10^3/uL (150-450); RED BLOOD COUNT 3.08 10^6/uL (4.00-5.40); RED CELL DISTRIBUTION WIDTH 13.4 % (11.5-14.5); WHITE BLOOD COUNT 9.6 10^3/uL (4.0-10.0)
[2017-06-26 05:09] LABS: ADD MANUAL DIFFER YES; DIFF SLIDE NUMBER 15; LEFT SHIFT POS FLAG; POS COUNT POS FLAG; POSITIVE MORPH POS FLAG; WBC SCAT POS FLAG
[2017-06-26 05:20] LABS: ANION GAP 10 MEQ/L (8-16); BLOOD UREA NITROGEN 8 MG/DL (7-18); CALCIUM LEVEL 8.3 MG/DL (8.5-10.1); CARBON DIOXIDE LEVEL 28 MEQ/L (21-32); CHLORIDE LEVEL 109 MEQ/L (98-107); CREATININE FOR GFR 1.46 MG/DL (0.55-1.02); GLOMERULAR FILTRATION RATE 39.7 (>51); GLUCOSE, FASTING 86 MG/DL (70-105); POTASSIUM SERUM 3.1 MEQ/L (3.5-5.1); SODIUM LEVEL 147 MEQ/L (136-145)
[2017-06-26] MEDS: HYDROmorphone HCL 1 MG/ML SYRINGE (J1170) IV ×2 (06:01→17:05)
[2017-06-26 06:12] LABS: ATYPICAL LYMPH 2 % (0-5); BANDS 4 % (< 11); LYMPHOCYTES 8 % (16-52); METAMYELOCYTES 3 % (0-0); MONOCYTES 11 % (0-8); MYELOCYTES 1 % (0-0); NEUTROPHILS 71 % (35-75)
[2017-06-26] MEDS: AQUAPHOR **100GM** OINT TOP ×4 (06:13→17:54)
[2017-06-26 06:15] LABS: PLATELET ESTIMATE NORMAL (NORMAL); TOXIC GRANULATION 1+
[2017-06-26] MEDS: POTASSIUM CHLORIDE 10 MEQ SR TABLET PO ×2 (06:45→08:32)
[2017-06-26] MEDS ORDERED: NS 1,000 ML IV (07:45)
[2017-06-26] MEDS: ENOXAPARIN 30 MG/0.3 ML SYR (J1650) SC (08:31)
[2017-06-26] MEDS: PANTOPRAZOLE 40MG INJ (PROTONIX) (C9113) IV (08:31)
[2017-06-26] MEDS: methylPREDNISolone INJ 40 MG/1 ML VIAL (J2920) IV (08:31)
[2017-06-26] MEDS: ADVAIR HFA 230/21MCG INHALER INH ×2 (09:05→20:20)
[2017-06-26] MEDS: KCL 40MEQ in NS 1000ML 1,000 ML IV (09:36)
[2017-06-26] MEDS: VANCOMYCIN HCL 1,000 MG, VIAL MATE ADAPTER 1 EACH in D5W 250 ML IV (09:37)
[2017-06-26 20:14] LABS: ANION GAP 7 MEQ/L (8-16); BLOOD UREA NITROGEN 9 MG/DL (7-18); CARBON DIOXIDE LEVEL 27 MEQ/L (21-32); CHLORIDE LEVEL 114 MEQ/L (98-107); CREATININE FOR GFR 1.35 MG/DL (0.55-1.02); GLOMERULAR FILTRATION RATE 43.5 (>51); GLUCOSE, FASTING 77 MG/DL (70-105); SODIUM LEVEL 148 MEQ/L (136-145)
[2017-06-27] MEDS: AQUAPHOR **100GM** OINT TOP ×4 (00:19→17:08)
[2017-06-27] MEDS: HYDROmorphone HCL 2 MG/ML 1ML VIAL (J1170) IV (00:22)
[2017-06-27] MEDS: PIPERACILLIN/TAZOBACTAM SOD 2.25 GM in APPROPRIATE DILUENT 1 EA IV ×4 (02:17→21:15)
[2017-06-27] MEDS: HYDROmorphone HCL 1 MG/ML SYRINGE (J1170) IV (05:29)
[2017-06-27 05:49] LABS: HEMATOCRIT 26.8 % (36.0-47.0); HEMOGLOBIN 8.8 g/dl (12.0-16.0); MEAN CORPUSCULAR HEMOGLOBIN 29.7 pg (27.0-33.0); MEAN CORPUSCULAR HGB CONC 32.8 g/dl (32.0-36.5); MEAN CORPUSCULAR VOLUME 90.5 fl (80.0-96.0); PLATELET COUNT, AUTOMATED 111 10^3/uL (150-450); RED BLOOD COUNT 2.96 10^6/uL (4.00-5.40); RED CELL DISTRIBUTION WIDTH 13.4 % (11.5-14.5); WHITE BLOOD COUNT 6.2 10^3/uL (4.0-10.0)
[2017-06-27 05:50] LABS: ADD MANUAL DIFFER YES; DIFF SLIDE NUMBER 12; LEFT SHIFT POS FLAG; POS COUNT POS FLAG; POSITIVE MORPH POS FLAG
[2017-06-27 06:04] LABS: ANION GAP 9 MEQ/L (8-16); BLOOD UREA NITROGEN 9 MG/DL (7-18); CALCIUM LEVEL 8.4 MG/DL (8.5-10.1); CARBON DIOXIDE LEVEL 28 MEQ/L (21-32); CHLORIDE LEVEL 111 MEQ/L (98-107); CREATININE FOR GFR 1.31 MG/DL (0.55-1.02); GLUCOSE, FASTING 83 MG/DL (70-105); POTASSIUM SERUM 3.1 MEQ/L (3.5-5.1); SODIUM LEVEL 148 MEQ/L (136-145)
[2017-06-27 06:22] LABS: BANDS 3 % (< 11); EOSINOPHILS 2 % (0-5); LYMPHOCYTES 18 % (16-52); METAMYELOCYTES 1 % (0-0); MONOCYTES 16 % (0-8); MYELOCYTES 3 % (0-0); NEUTROPHILS 57 % (35-75); PLATELET ESTIMATE NORMAL (NORMAL)
[2017-06-27 06:23] LABS: TOXIC GRANULATION 1+
[2017-06-27] MEDS: ADVAIR HFA 230/21MCG INHALER INH ×2 (07:50→20:20)
[2017-06-27] MEDS: methylPREDNISolone INJ 40 MG/1 ML VIAL (J2920) IV (08:53)
[2017-06-27] MEDS: PANTOPRAZOLE 40MG INJ (PROTONIX) (C9113) IV (08:54)
[2017-06-27] MEDS: KCL 40MEQ IN D5/0.45NS 1000ML 1,000 ML IV ×2 (08:54→17:07)
[2017-06-27] MEDS: ENOXAPARIN 30 MG/0.3 ML SYR (J1650) SC (08:54)
[2017-06-27] MEDS: ONDANSETRON 4MG/2ML VIAL (J2405) IV ×2 (12:58→20:57)
[2017-06-27] MEDS: HYDROmorphone (DILAUDID) 4 MG TAB PO ×3 (13:07→20:54)
[2017-06-28] MEDS: HYDROmorphone (DILAUDID) 4 MG TAB PO ×4 (00:52→17:17)
[2017-06-28] MEDS: PIPERACILLIN/TAZOBACTAM SOD 2.25 GM in APPROPRIATE DILUENT 1 EA IV ×4 (02:13→20:18)
[2017-06-28] MEDS: AQUAPHOR **100GM** OINT TOP ×4 (06:08→18:00)
[2017-06-28 06:39] LABS: HEMATOCRIT 26.1 % (36.0-47.0); HEMOGLOBIN 8.6 g/dl (12.0-16.0); MEAN CORPUSCULAR HEMOGLOBIN 30.2 pg (27.0-33.0); MEAN CORPUSCULAR VOLUME 91.6 fl (80.0-96.0); PLATELET COUNT, AUTOMATED 111 10^3/uL (150-450); RED BLOOD COUNT 2.85 10^6/uL (4.00-5.40); RED CELL DISTRIBUTION WIDTH 13.4 % (11.5-14.5); WHITE BLOOD COUNT 5.2 10^3/uL (4.0-10.0)
[2017-06-28 06:56] LABS: ANION GAP 7 MEQ/L (8-16); BLOOD UREA NITROGEN 6 MG/DL (7-18); CARBON DIOXIDE LEVEL 28 MEQ/L (21-32); CHLORIDE LEVEL 112 MEQ/L (98-107); CREATININE FOR GFR 1.29 MG/DL (0.55-1.02); GLOMERULAR FILTRATION RATE 45.8 (>51); GLUCOSE, FASTING 92 MG/DL (70-105); POTASSIUM SERUM 3.7 MEQ/L (3.5-5.1); SODIUM LEVEL 147 MEQ/L (136-145)
[2017-06-28 07:57] LABS: PLT CLUMPS? POS FLAG; POS COUNT POS FLAG
[2017-06-28] MEDS: ADVAIR HFA 230/21MCG INHALER INH ×2 (07:57→20:25)
[2017-06-28] MEDS: ENOXAPARIN 30 MG/0.3 ML SYR (J1650) SC (08:34)
[2017-06-28] MEDS: PANTOPRAZOLE 40MG INJ (PROTONIX) (C9113) IV (08:34)
[2017-06-28] MEDS: predniSONE 10 MG TAB PO (08:39)
[2017-06-29] MEDS: AQUAPHOR **100GM** OINT TOP ×2 (00:13→05:22)
[2017-06-29] MEDS: PIPERACILLIN/TAZOBACTAM SOD 2.25 GM in APPROPRIATE DILUENT 1 EA IV (01:44)
[2017-06-29] MEDS: ONDANSETRON 4MG/2ML VIAL (J2405) IV (02:47)
[2017-06-29] MEDS: HYDROmorphone (DILAUDID) 4 MG TAB PO (04:32)
[2017-06-29 05:42] LABS: HEMATOCRIT 26.9 % (36.0-47.0); HEMOGLOBIN 8.8 g/dl (12.0-16.0); MEAN CORPUSCULAR HEMOGLOBIN 29.6 pg (27.0-33.0); MEAN CORPUSCULAR HGB CONC 32.7 g/dl (32.0-36.5); MEAN CORPUSCULAR VOLUME 90.6 fl (80.0-96.0); RED BLOOD COUNT 2.97 10^6/uL (4.00-5.40); RED CELL DISTRIBUTION WIDTH 13.5 % (11.5-14.5); WHITE BLOOD COUNT 5.4 10^3/uL (4.0-10.0)
[2017-06-29 06:03] LABS: ANION GAP 8 MEQ/L (8-16); BLOOD UREA NITROGEN 8 MG/DL (7-18); CARBON DIOXIDE LEVEL 27 MEQ/L (21-32); CHLORIDE LEVEL 111 MEQ/L (98-107); CREATININE FOR GFR 1.22 MG/DL (0.55-1.02); GLOMERULAR FILTRATION RATE 48.9 (>51); GLUCOSE, FASTING 89 MG/DL (70-105); POTASSIUM SERUM 3.4 MEQ/L (3.5-5.1); SODIUM LEVEL 146 MEQ/L (136-145)
[2017-06-29 06:17] LABS: PLT CLUMPS? POS FLAG; POS COUNT POS FLAG
[2017-06-29] MEDS: ADVAIR HFA 230/21MCG INHALER INH (08:04)
[2017-06-29] MEDS: ENOXAPARIN 30 MG/0.3 ML SYR (J1650) SC ×2 (09:00→09:02)
[2017-06-29] MEDS: predniSONE 10 MG TAB PO (09:02)
[2017-06-29] MEDS: PANTOPRAZOLE 40MG INJ (PROTONIX) (C9113) IV (09:02)
== END 2017-06-29 11:09 | disposition home or self-care (01) | DRG 422 ==
LOC: M ED 23:17 → M ED INP 06-21 04:45 → M PCU 06-21 11:20
DX: E86.0 Dehydration (principal); E46 Unspecified protein-calorie malnutrition; D70.1 Agranulocytosis secondary to cancer chemotherapy; R13.10 Dysphagia, unspecified; D64.81 Anemia due to antineoplastic chemotherapy; J44.9 Chronic obstructive pulmonary disease, unspecified; C34.11 Malignant neoplasm of upper lobe, right bronchus or lung; K20.9 Esophagitis, unspecified; E87.6 Hypokalemia; Z92.21 Personal history of antineoplastic chemotherapy; Z92.3 Personal history of irradiation; Z79.52 Long term (current) use of systemic steroids; Z79.899 Other long term (current) drug therapy; Z87.891 Personal history of nicotine dependence; Z68.22 Body mass index [BMI] 22.0-22.9, adult

== ENCOUNTER 2017-06-28 10:00 | Outpatient (RCR) | payer OTHER ==
[2017-06-29] MEDS ORDERED: POTASSIUM CHLORIDE 10 MEQ SR TABLET PO (08:00)
== END 2017-07-27 ==
LOC: M ONCR 10:00
DX: C34.11 Malignant neoplasm of upper lobe, right bronchus or lung (principal)
CPT/HCPCS: 77336

== ENCOUNTER → 2017-07-18 | Outpatient (REF) | payer OTHER ==
[2017-07-18 13:28] LABS: PROTHROMBIN TIME 13.3 SECONDS (12.4-14.5)
[2017-07-18 13:29] LABS: PARTIAL THROMBOPLASTIN TIME 29.8 SECONDS (26.8-37.9)
== END ==
LOC: M LAB REF 12:46
DX: C34.90 Malignant neoplasm of unspecified part of unspecified bronchus or lung (principal)
CPT/HCPCS: 85610

== ENCOUNTER → 2017-07-21 | Outpatient (CLI) | payer OTHER ==
[2017-07-21 13:13] LABS: HEMATOCRIT 23.2 % (36.0-47.0); HEMOGLOBIN 7.6 g/dl (12.0-16.0); MEAN CORPUSCULAR HEMOGLOBIN 30.6 pg (27.0-33.0); MEAN CORPUSCULAR HGB CONC 32.8 g/dl (32.0-36.5); MEAN CORPUSCULAR VOLUME 93.5 fl (80.0-96.0); PLATELET COUNT, AUTOMATED 100 10^3/uL (150-450); RED BLOOD COUNT 2.48 10^6/uL (4.00-5.40); RED CELL DISTRIBUTION WIDTH 15.6 % (11.5-14.5)
[2017-07-21 13:17] LABS: WHITE BLOOD COUNT 0.8 10^3/uL (4.0-10.0)
[2017-07-21 13:18] LABS: POS COUNT POS FLAG
== END ==
LOC: M LAB 12:51
DX: C34.90 Malignant neoplasm of unspecified part of unspecified bronchus or lung (principal)
CPT/HCPCS: 85027

== ENCOUNTER → 2017-08-16 | Outpatient (CLI) | payer OTHER | LOC: M ONCR 13:27 | DX: C34.11 Malignant neoplasm of upper lobe, right bronchus or lung (principal) ==

== ENCOUNTER → 2017-09-13 | Outpatient (CLI) | payer OTHER ==
[~2017-09-13] MED LIST changes: -ADVA230A; -ADVA230A INH; -CEFP500T PO; +GASTROGRAFIN SOLUTION 30ML (Q9963) As Ordered; +ISOVUE-370 76% 100ML VIAL (Q9967) As Ordered; -LEVO500T3; -MORP20SO; -MORP20SO PO; -NYST50SS; -NYST50SS SS; -ONDA8TAB7; -ONDA8TAB7 PO; -OXYC1TAB23 PO; -PANT20TA; -PANT20TA PO; -PERC5TAB12 PO; -PRED10TA2; -PRED10TA2 PO; -PROC10TA; -PROC10TA PO; -PROHANCE 279.3MG/ML 15ML VIAL (A9576) As Ordered ONE
== END ==
LOC: M RAD 09:40
DX: C34.01 Malignant neoplasm of right main bronchus (principal); K76.89 Other specified diseases of liver
CPT/HCPCS: Q9963

== ENCOUNTER → 2017-09-30 | Outpatient (REF) | payer OTHER ==
[2017-09-30 14:15] LABS: FREE T4 0.96 NG/DL (0.76-1.46)
== END ==
LOC: M LAB REF 13:06
DX: C34.90 Malignant neoplasm of unspecified part of unspecified bronchus or lung (principal)

== ENCOUNTER → 2017-10-28 | Outpatient (REF) | payer OTHER ==
[2017-10-28 14:15] LABS: FERRITIN 32 NG/ML (8-252); IRON (FE) 42 UG/DL (50-170); PERCENT SATURATION 17.3 % (13.2-45.0); TOTAL IRON BINDING CAPACITY 243 UG/DL (250-450)
== END ==
LOC: M LAB REF 13:17
DX: C34.11 Malignant neoplasm of upper lobe, right bronchus or lung (principal)
CPT/HCPCS: 83550

== ENCOUNTER → 2017-12-09 | Outpatient (REF) | payer OTHER ==
[2017-12-09 17:46] LABS: FREE T4 0.92 NG/DL (0.76-1.46)
== END ==
LOC: M LAB REF 16:19
DX: Z79.899 Other long term (current) drug therapy (principal); C34.11 Malignant neoplasm of upper lobe, right bronchus or lung

== ENCOUNTER → 2018-01-06 | Outpatient (REF) | payer OTHER | LOC: M LAB REF 13:26 | DX: Z79.899 Other long term (current) drug therapy (principal); C34.11 Malignant neoplasm of upper lobe, right bronchus or lung | CPT/HCPCS: 84443 ==

== ENCOUNTER → 2018-01-25 | Outpatient (CLI) | payer OTHER | LOC: M RAD 14:14 | DX: C34.90 Malignant neoplasm of unspecified part of unspecified bronchus or lung (principal); Z79.899 Other long term (current) drug therapy; J90 Pleural effusion, not elsewhere classified; I31.3 Pericardial effusion (noninflammatory) | CPT/HCPCS: Q9963 ==

== ENCOUNTER → 2018-02-03 | Outpatient (REF) | payer OTHER ==
[2018-02-03 13:07] LABS: INR 1.02; PROTHROMBIN TIME 13.5 SECONDS (12.1-14.4)
[2018-02-03 13:08] LABS: PARTIAL THROMBOPLASTIN TIME 28.8 SECONDS (25.4-37.6)
[2018-02-03 13:42] LABS: FREE T4 0.79 NG/DL (0.76-1.46)
== END ==
LOC: M LAB REF 12:43
DX: Z79.899 Other long term (current) drug therapy (principal)

== ENCOUNTER → 2018-02-03 | Outpatient (CLI) | payer OTHER | LOC: M EKG 11:47 | DX: C34.90 Malignant neoplasm of unspecified part of unspecified bronchus or lung (principal); R07.9 Chest pain, unspecified | CPT/HCPCS: 93005 ==

== ENCOUNTER → 2018-02-20 | Outpatient (REF) | payer OTHER | LOC: M LAB REF 13:37 | DX: Z79.899 Other long term (current) drug therapy (principal); C34.11 Malignant neoplasm of upper lobe, right bronchus or lung ==

== ENCOUNTER → 2018-02-21 | Outpatient (CLI) | payer OTHER ==
[~2018-02-21] MED LIST changes: +BUPIVACAINE HCL 0.5% 10 ML VIAL As Ordered; -GASTROGRAFIN SOLUTION 30ML (Q9963) As Ordered; -ISOVUE-370 76% 100ML VIAL (Q9967) As Ordered; +LIDOCAINE 1% MDV 20ML VIAL As Ordered
[2018-02-21 13:53] LABS: PH BODY FLUID 7.672 UNITS (NOT ESTABLISHED); SOURCE, BODY FLUID pH PLEURAL
[2018-02-21 14:05] LABS: LDH, BODY FLUID 134 U/L (NOT ESTABLISHED); SOURCE, BODY FLUID GLUCOSE PLEURAL; SOURCE, BODY FLUID LDH PLEURAL; SOURCE, BODY FLUID TOT PROTEIN PLEURAL
== END ==
LOC: M RADPRO 12:00
DX: I31.3 Pericardial effusion (noninflammatory) (principal); C34.90 Malignant neoplasm of unspecified part of unspecified bronchus or lung; Z90.13 Acquired absence of bilateral breasts and nipples; Z96.642 Presence of left artificial hip joint; Z88.1 Allergy status to other antibiotic agents; Z88.8 Allergy status to other drugs, medicaments and biological substances; Z92.21 Personal history of antineoplastic chemotherapy
CPT/HCPCS: 32555

== ENCOUNTER → 2018-03-01 | Outpatient (CLI) | payer OTHER | LOC: M ONCR 11:00 | DX: C34.11 Malignant neoplasm of upper lobe, right bronchus or lung (principal) | CPT/HCPCS: 99211 ==

== ENCOUNTER → 2018-03-03 | Outpatient (REF) | payer OTHER ==
[2018-03-03 14:38] LABS: FREE T4 0.98 NG/DL (0.76-1.46)
== END ==
LOC: M LAB REF 13:21
DX: C34.11 Malignant neoplasm of upper lobe, right bronchus or lung (principal)
CPT/HCPCS: 84443

== ENCOUNTER → 2018-03-17 | Outpatient (REF) | payer OTHER ==
[2018-03-17 14:50] LABS: FREE T4 1.14 NG/DL (0.76-1.46)
== END ==
LOC: M LAB REF 13:42
DX: Z79.899 Other long term (current) drug therapy (principal)

== ENCOUNTER → 2018-03-23 | Outpatient (CLI) | payer OTHER | LOC: M CARPUL 08:16 | DX: I31.3 Pericardial effusion (noninflammatory) (principal) | CPT/HCPCS: 93306 ==

== ENCOUNTER → 2018-03-31 | Outpatient (CLI) | payer OTHER | LOC: M RAD 13:07 | DX: M25.511 Pain in right shoulder (principal) | CPT/HCPCS: 71046 ==

== ENCOUNTER → 2018-04-04 | Outpatient (CLI) | payer OTHER | LOC: M RAD 12:09 | DX: C34.11 Malignant neoplasm of upper lobe, right bronchus or lung (principal); R22.2 Localized swelling, mass and lump, trunk | CPT/HCPCS: 76536 ==

== ENCOUNTER → 2018-04-10 | Outpatient (CLI) | payer OTHER ==
[~2018-04-10] MED LIST changes: -BUPIVACAINE HCL 0.5% 10 ML VIAL As Ordered; +ISOVUE-370 76% 100ML VIAL (Q9967) As Ordered; -LIDOCAINE 1% MDV 20ML VIAL As Ordered
== END ==
LOC: M RAD 13:36
DX: J90 Pleural effusion, not elsewhere classified (principal)
CPT/HCPCS: Q9967

== ENCOUNTER → 2018-04-21 | Outpatient (CLI) | payer OTHER | LOC: M CARPUL 09:27 | DX: I31.3 Pericardial effusion (noninflammatory) (principal) | CPT/HCPCS: 93306 ==

== ENCOUNTER 2018-05-05 09:52 | Emergency (ER) | payer OTHER ==
[2018-05-05 10:34] LABS: BASO % 0.1 % (0.0-1.0); EOS % 0.1 % (0.0-3.0); HEMATOCRIT 33.5 % (36.0-47.0); HEMOGLOBIN 11.3 g/dl (12.0-15.5); IMMATURE GRANULOCYTE % 1.9 % (0-3.0); LYMPH # 1.2 10^3/uL (1.5-4.5); MEAN CORPUSCULAR HEMOGLOBIN 29.5 pg (27.0-33.0); MEAN CORPUSCULAR HGB CONC 33.7 g/dl (32.0-36.5); MEAN CORPUSCULAR VOLUME 87.5 fl (80.0-96.0); MONO # 1.1 10^3/uL (0.0-0.8); MONO % 13.2 % (0.0-5.0); NEUTROPHILS # 5.6 10^3/uL (1.8-7.7); NEUTROPHILS % 69.7 % (36.0-66.0); PLATELET COUNT, AUTOMATED 260 10^3/uL (150-450); RED BLOOD COUNT 3.83 10^6/uL (4.00-5.40); RED CELL DISTRIBUTION WIDTH 14.8 % (11.5-14.5)
[2018-05-05] MEDS: ASPIRIN 81 MG CHEW TABLET PO (10:36)
[2018-05-05 10:44] LABS: INR 0.96; PROTHROMBIN TIME 12.9 SECONDS (12.1-14.4)
[2018-05-05 10:45] LABS: PARTIAL THROMBOPLASTIN TIME 22.6 SECONDS (25.4-37.6)
[2018-05-05 11:10] LABS: ANION GAP 8 MEQ/L (8-16); BLOOD UREA NITROGEN 21 MG/DL (7-18); CALCIUM LEVEL 9.5 MG/DL (8.5-10.1); CARBON DIOXIDE LEVEL 25 MEQ/L (21-32); CHLORIDE LEVEL 107 MEQ/L (98-107); CPK CREATINE PHOSPHOKINASE 59 U/L (26-192); CREATININE FOR GFR 0.85 MG/DL (0.55-1.30); FREE T4 1.22 NG/DL (0.76-1.46); GLOMERULAR FILTRATION RATE > 60.0 (>51); GLUCOSE, FASTING 104 MG/DL (70-100); MB/CK RELATIVE INDEX 1.69 (< OR =4); NT-PRO BNP 498 PG/ML (<125); POTASSIUM SERUM 4.1 MEQ/L (3.5-5.1); SODIUM LEVEL 140 MEQ/L (136-145); TROPONIN I < 0.02 NG/ML (< 0.10)
[2018-05-05] MEDS ORDERED: ISOVUE-370 76% 100ML VIAL (Q9967) As Ordered (11:28)
== END 2018-05-05 13:20 | disposition home or self-care (01) ==
LOC: M ED 09:52
DX: I31.3 Pericardial effusion (noninflammatory) (principal); J90 Pleural effusion, not elsewhere classified; I49.3 Ventricular premature depolarization; J44.9 Chronic obstructive pulmonary disease, unspecified; C34.91 Malignant neoplasm of unspecified part of right bronchus or lung; Z87.09 Personal history of other diseases of the respiratory system; Z87.891 Personal history of nicotine dependence; Z79.899 Other long term (current) drug therapy; Z79.52 Long term (current) use of systemic steroids; Z79.51 Long term (current) use of inhaled steroids
CPT/HCPCS: Q9967

== ENCOUNTER → 2018-06-05 | Outpatient (CLI) | payer OTHER | LOC: M CARPUL 11:01 | DX: I31.3 Pericardial effusion (noninflammatory) (principal); I35.0 Nonrheumatic aortic (valve) stenosis | CPT/HCPCS: 93306 ==

== ENCOUNTER → 2018-06-14 | Outpatient (CLI) | payer OTHER ==
[~2018-06-14] MED LIST changes: +ADV250INH INH; +ADVA230A; +ADVA230A INH; +AZEL0.1S NARES; +CEFD1CAP8 PO; +CEFP500T PO; +CEPH500C PO; +CIPR500T3 PO; +CLAR10CA3 PO; +DILA4TAB13 PO; +DURVALUMAB IV; +IBUP-1114 PO; -ISOVUE-370 76% 100ML VIAL (Q9967) As Ordered; +LEVA750T7 PO; +LEVO100T5 PO; +LEVO500T3; +MELO15TA28 PO; +MORP20SO; +MORP20SO PO; +NYST50SS; +NYST50SS SS; +ONDA8TAB7; +ONDA8TAB7 PO; +OXYC1TAB23 PO; +PANT20TA2; +PANT20TA2 PO; +PATIENT COMMENTS; +PERC5TAB12 PO; +PRED10TA2; +PRED10TA2 PO; +PRED1TABL PO; +PRED5TA PO; +PROBCAP4 PO; +PROC10TA4; +PROC10TA4 PO; +SYNT50TA PO; +SYNT75TA PO
== END ==
LOC: M PLARAD 14:37
PROVIDERS: ATTEND Internal Medicine Medical Oncology
DX: C34.11 Malignant neoplasm of upper lobe, right bronchus or lung (principal)

== ENCOUNTER → 2018-06-21 | Outpatient (CLI) | payer OTHER ==
[~2018-06-21] MED LIST changes: +LEVO75TA4 PO
--- NOTE | 2018-06-21 14:31 | REP ---
PET/CT: HISTORY: Restaging lung carcinoma. Status post radiation therapy and chemotherapy. On maintenance immunotherapy. Pain and fullness in the supraclavicular area. COMPARISONS: Comparison PET/CT study May 18, 2017. TECHNIQUE: 57 minutes following the intravenous injection of a 8.8 mCi dose of F-18 FDG, three-dimensional PET scintigraphy is acquired from the skull base to the proximal thighs. Triplanar noncontrast CT scanning is acquired through the same anatomic range for attenuation correction, and image registration with scan parameters optimized to minimize radiation exposure to the patient. PET scintigraphy and CT datasets were fused and displayed on a workstation with multiplanar and projection display capability. PET/CT FINDINGS: There is no abnormal hypermetabolic uptake in the supraclavicular soft tissues on either side. There is mildly increased skeletal muscle uptake about the shoulder girdle and chest wall musculature diffusely on the right which may be post radiation change. There is a small to moderate right pleural effusion. There is no evidence of pleural hypermetabolic uptake. There is a focus of mildly hypermetabolic uptake in the right upper lobe which is partially collapsed adjacent to the superior mediastinum. Maximum standard uptake value here is 5.1. This is the area where the previous PET/CT study showed a neoplastic uptake in the right chest. It is difficult to exclude right upper lobe residual or recurrent disease. The area is smaller and much less avid than on May 18, 2017. There is no mediastinal or hilar hypermetabolic focus visible today. There is a pericardial effusion without discernible hypermetabolic uptake. Pericardial effusion is felt to be a similar in size to that seen May 05, 2018. No abnormal pulmonary parenchymal hypermetabolic uptake is seen. There is a left-sided Luilwc-R-Izyu catheter. No abnormal hypermetabolic uptake is seen in the liver, spleen, adrenals, or elsewhere in the abdomen or pelvis. IMPRESSION: No hypermetabolic kaleb uptake is seen in the neck or in the mediastinum. There is some residual hypermetabolic uptake in the right upper lobe region although this is smaller and less avid than on the PET/CT study from May 18, 2000 17. Right pleural and pericardial effusions are again noted similar to the most recent CT study on May 05, 2018. Electronically Signed by Villa Quijano MD 06/21/2018 03:13 P
== END ==
LOC: M PLARAD 10:58
PROVIDERS: ATTEND Internal Medicine Medical Oncology
DX: C34.11 Malignant neoplasm of upper lobe, right bronchus or lung (principal)
CPT/HCPCS: 78815; A9552

== ENCOUNTER 2018-08-07 19:13 | Inpatient (IN) | payer OTHER ==
[~2018-08-07] VITALS: Ht 149.9 cm; Wt 56.9 kg
[~2018-08-07 19:13] MED LIST changes: +CODE30TA PO; +FLUO0.0216 TOP; +SYNT100T PO; +TAGA200T3 PO
[2018-08-07] MEDS ORDERED: IBUPROFEN 600 MG TAB PO ONE (19:45)
[2018-08-07] MEDS ORDERED: NS 1,000 ML IV ONE (19:45)
[2018-08-07] MEDS: HEPARIN SOD (PORCINE) 5000 UNITS/ML VIAL SQ SCH (20:00)
[2018-08-07 20:34] LABS: BASO % 0.4 % (0.0-1.0); EOS % 0.4 % (0.0-3.0); HEMATOCRIT 31.6 % (36.0-47.0); HEMOGLOBIN 10.4 g/dl (12.0-15.5); LYMPH # 0.4 10^3/uL (1.5-4.5); LYMPH % 8.7 % (24.0-44.0); MEAN CORPUSCULAR HEMOGLOBIN 29.3 pg (27.0-33.0); MEAN CORPUSCULAR HGB CONC 32.9 g/dl (32.0-36.5); MONO # 0.4 10^3/uL (0.0-0.8); MONO % 8.2 % (0.0-5.0); NEUTROPHILS % 82.1 % (36.0-66.0); PLATELET COUNT, AUTOMATED 215 10^3/uL (150-450); RED BLOOD COUNT 3.55 10^6/uL (4.00-5.40); WHITE BLOOD COUNT 4.9 10^3/uL (4.0-10.0)
[2018-08-07 20:50] LABS: INR 1.09; PROTHROMBIN TIME 14.2 SECONDS (12.1-14.4)
[2018-08-07 20:51] LABS: PARTIAL THROMBOPLASTIN TIME 31.9 SECONDS (25.4-37.6)
[2018-08-07 20:55] LABS: ALBUMIN 3.4 GM/DL (3.2-5.2); ALT/SGPT 25 U/L (12-78); AMYLASE 56 U/L (25-115); BILIRUBIN,DIRECT 0.1 MG/DL (0.0-0.2); BILIRUBIN,TOTAL 0.3 MG/DL (0.2-1.0); BLOOD UREA NITROGEN 9 MG/DL (7-18); CALCIUM LEVEL 8.7 MG/DL (8.5-10.1); CARBON DIOXIDE LEVEL 23 MEQ/L (21-32); CHLORIDE LEVEL 105 MEQ/L (98-107); CREATININE FOR GFR 0.76 MG/DL (0.55-1.30); GLOMERULAR FILTRATION RATE > 60.0 (>51); GLUCOSE, FASTING 123 MG/DL (70-100); POTASSIUM SERUM 3.8 MEQ/L (3.5-5.1); SODIUM LEVEL 136 MEQ/L (136-145); TOTAL PROTEIN 7.4 GM/DL (6.4-8.2)
[2018-08-07 21:00] LABS: CK-MB VALUE MASS < 1.0 NG/ML (<3.6); CPK CREATINE PHOSPHOKINASE 64 U/L (26-192); MB/CK RELATIVE INDEX 1.56 (< OR =4); TROPONIN I < 0.02 NG/ML (< 0.10)
[2018-08-07 21:10] LABS: APPEARANCE, URINE CLEAR (CLEAR); BACTERIA, URINE AUTO NEGATIVE (NEGATIVE); BILIRUBIN, URINE AUTO NEGATIVE (NEGATIVE); BLOOD, URINE BLOOD NEGATIVE (NEGATIVE); COLOR, URINE STRAW (YELLOW); GLUCOSE, URINE (UA) AUTO NEGATIVE (NEGATIVE); KETONE, URINE AUTO NEGATIVE (NEGATIVE); LEUKOCYTE ESTERASE, URINE AUTO NEGATIVE (NEGATIVE); NITRITE, URINE AUTO NEGATIVE (NEGATIVE); PROTEIN, URINE AUTO NEGATIVE (NEGATIVE); RBC, URINE AUTO 1 /HPF (0-3); SPECIFIC GRAVITY URINE AUTO 1.004 (1.002-1.035); SQUAMOUS EPITHELIAL CELL UR AU 1 /HPF (0-6); UROBILINOGEN, URINE AUTO 0.2 mg/dL (0.0-2.0); WBC, URINE AUTO 0 /HPF (0-3)
[2018-08-07] MEDS ORDERED: ACETAMINOPHEN TAB 650MG DOSE (2X325MG) PO ONE (22:00)
--- NOTE | 2018-08-07 22:01 | REPVR ---
EXAM: XR Chest, 2 Views EXAM DATE/TIME: 08/07/2018 8:51 PM CLINICAL HISTORY: 57 years old, female; Signs and symptoms; Cough and fever; Additional info: Fever, cough TECHNIQUE: XR of the chest, 2 views. COMPARISON: CR PORTABLE CHEST X-RAY 05/05/2018 11:24 AM FINDINGS: Tubes, catheters and devices: External monitor devices are present. Lungs: There is atelectasis in the right upper lobe with shift of mediastinal structures into the right hemithorax. Pleural space: There is a right pleural effusion/pleural thickening. Heart/Mediastinum: Unremarkable. No cardiomegaly. Vasculature: The distal tip of a left internal jugular line projects in expected location of the superior vena cava. Bones/joints: Unremarkable. IMPRESSION: 1. No change in the right upper lobe atelectasis with right pleural effusion/pleural thickening and mediastinal shift towards the right. Electronically signed by: Kathy Carpio On 08/07/2018 22:01:42 PM
[2018-08-07] MEDS: NS 1,000 ML IV SCH (22:41)
[2018-08-07] MEDS ORDERED: PERC5TAB12 PO (22:42)
[2018-08-07] MEDS ORDERED: IBUP1TAB6 PO (22:42)
[2018-08-07] MEDS ORDERED: SYNT100T PO (22:42)
[2018-08-07] MEDS ORDERED: AZEL1SPR3 (22:42)
[2018-08-07] MEDS ORDERED: MELO15TA28 PO (22:42)
--- NOTE | 2018-08-07 23:59 | HPEPDOC ---
[facility] Medical History & Physical Date of Admission Aug 07, 2018 Other Provider Admitting/dictating: Shantanu Manning M.D. Attending Physician: LAYNE HUSAIN MD History and Physical CHIEF COMPLAINT: Fever HISTORY OF PRESENT ILLNESS: Patient is a 57-year-old woman with history of COPD, hypothyroidism, and adenocarcinoma of the lung. She is status post chemotherapy and radiotherapy. Currently she is receiving immunotherapy and last dose was on . Patient recounts being in her usual state of health about when she received her immunotherapy. However, 2 days later she started having cough productive of whitish, sometimes yellowish sputum, not associated with shortness of breath. No hemoptysis. She refers subjective fever and chills at home. She also reports that her was sick with the flu for 2-3 days before she developed cough and fever. She denies any chest pain or palpitations. No change in her bowel or urinary habits. She was evaluated in the emergency room with a temperature of 102. Chest x-ray unchanged from previous and respiratory panel sent, pending. PAST MEDICAL HISTORY: Per HPI PAST SURGICAL HISTORY: 1. section. 2. Port placement. SOCIAL HISTORY: and lives with her . Quit smoking over 12 years. Denies alcohol, denies illicit drug use. FAMILY HISTORY: Father: , from complications of pancreatic cancer Mother: , from complications of emphysema Cancers runs in the family ALLERGIES: Please see below. REVIEW OF SYSTEMS: She refers subjective fever and chills at home. She refers cough productive of whitish, sometimes yellowish sputum, not associated with shortness of breath. No hemoptysis. Positive recent sick contact. She denies any chest pain or palpitations. No change in her bowel or urinary habits. Other systems reviewed, negative. A 12 point review of system was done. HOME MEDICATIONS: Please see below. PHYSICAL EXAMINATION: VITAL SIGNS: Temperature 100.3, pulse 107, respiratory rate 19, blood pressure 128/72, pulse oximetry 95% on room air. GENERAL APPEARANCE: Middle aged woman, lying calmly in bed but coughing. He is not pale, anicteric but warm to touch. HEENT: Atraumatic. Neck: Supple. LUNGS: Clear to auscultation bilaterally. CARDIOVASCULAR: S1 and 2 heard, no murmurs, rubs or gallops. ABDOMEN: Obese, soft, not tender, not distended. Bowel sounds normoactive. MUSCULOSKELETAL: Apparently within normal limits. EXTREMITIES: No pedal edema, 2+ bilateral pedal pulses noted. NEUROLOGICAL: Awake, alert, oriented 3. PSYCHIATRIC: Normal affect LABORATORY DATA: See below. IMAGING: No change in right upper lobe atelectasis with slight pleural effusion/pleural thickening. A mediastinal shift towards the right. EKG sinus tachycardia, no acute ST or T-wave changes. MICROBIOLOGY: Please see below. DIAGNOSES: 1. Fever of unknown origin, likely secondary to a URTI 2. SIRS . PLAN: 1. I will admit patient to the PCU under care of Dr Husain. 2. Follow respiratory panel. 3. We'll continue with IV fluid resuscitation to run at 75 mils per hour. 4. I will start on empirical antibiotic coverage with Zosyn IV on account of her immune status. If panel is significant for viral infection. Primary team may discontinue antibiotics. 5. GI prophylaxis. Pantoprazole. 7. COPD, stable. 8. Hypothyroidism. We'll resume by mouth medications. 9. History of lung cancer. 10. DVT prophylaxis subcutaneous heparin. 11. Further management to be per patient's clinical course. Vital Signs Vital Signs Date Time Temp Pulse Resp B/P (MAP) Pulse Ox O2 Delivery O2 Flow Rate FiO2 08/07/18 23:29 98.5 101 18 113/70 (84) 96 Room Air Laboratory Data Labs 24H Laboratory Tests 2 08/07/18 19:44: Urine Appearance CLEAR, Urine Color STRAW, Urine pH 6.0, Urine Specific [place] 1.004, Urine Protein NEGATIVE, Urine Glucose (UA) NEGATIVE, Urine Ketones NEGATIVE, Urine Urobilinogen 0.2, Urine Bilirubin NEGATIVE, Urine Leukocyte Esterase NEGATIVE, Urine Blood NEGATIVE, Urine Nitrite NEGATIVE, Urine WBC (Auto) 0, Urine RBC (Auto) 1, Urine Hyaline Casts (Auto) 0, Urine Bacteria (Auto) NEGATIVE, Urine Squamous Epithelial Cells 1, Urine Sperm (Auto) 08/07/18 20:20: Immature Granulocyte % (Auto) 0.2, White Blood Count 4.9, Red Blood Count 3.55L, Hemoglobin 10.4L, Hematocrit 31.6L, Mean Corpuscular Volume 89.0, Mean Corpuscular Hemoglobin 29.3, Mean Corpuscular Hemoglobin Concent 32.9, Red Cell Distribution Width 12.5, Platelet Count 215, Neutrophils (%) (Auto) 82.1H, Lymphocytes (%) (Auto) 8.7L, Monocytes (%) (Auto) 8.2H, Eosinophils (%) (Auto) 0.4, Basophils (%) (Auto) 0.4, Neutrophils # (Auto) 4.0, Lymphocytes # (Auto) 0.4L, Monocytes # (Auto) 0.4, Eosinophils # (Auto) 0.0, Basophils # (Auto) 0.0, Nucleated Red Blood Cells % (auto) 0.0, Prothrombin Time 14.2, Prothromb Time International Ratio 1.09, Activated Partial Thromboplast Time 31.9, Anion Gap 8, Glomerular Filtration Rate > 60.0, Lactic Acid Level 0.7, Calcium Level 8.7, Aspartate Amino Transf (AST/SGOT) 33, Alanine Aminotransferase (ALT/SGPT) 25, Alkaline Phosphatase 94, Total Bilirubin 0.3, Direct Bilirubin 0.1, Total Creatine Kinase 64, Creatine Kinase MB < 1.0, Creatine Kinase MB Relative Index 1.56, Troponin I < 0.02, Total Protein 7.4, Albumin 3.4, Albumin/Globulin Ratio 0.85L, Amylase Level 56 CBC/BMP Laboratory Tests 08/07/18 20:20 Red Blood Count 3.55 L, Mean Corpuscular Volume 89.0, Mean Corpuscular Hemoglobin 29.3, Mean Corpuscular Hemoglobin Concent 32.9, Red Cell Distribution Width 12.5, Neutrophils (%) (Auto) 82.1 H, Lymphocytes (%) (Auto) 8.7 L, Monocytes (%) (Auto) 8.2 H, Eosinophils (%) (Auto) 0.4, Basophils (%) (Auto) 0.4, Neutrophils # (Auto) 4.0, Lymphocytes # (Auto) 0.4 L, Monocytes # (Auto) 0.4, Eosinophils # (Auto) 0.0, Basophils # (Auto) 0.0 Microbiology Microbiology 08/07/18 Blood Culture, Received Pending 08/07/18 Blood Culture, Received Pending 08/07/18 Respiratory Virus Panel (PCR) ([facility]) - Final, Complete Human Metapneumovirus 08/07/18 Group A Streptococcus Screen ([facility]), Received Pending 2/11/19 Urine Culture, Received Pending Home Medications Scheduled Levothyroxine Sodium (Synthroid) 100 Mcg Tab, 100 MCG PO DAILY Meloxicam (Meloxicam) 15 Mg Tab, 15 MG PO DAILY Salmeterol/Fluticasone (Advair Diskus 250-50 Mcg/Dose) 14 Puff/Inhaler Aerp, 1 PUFF INH BID Scheduled PRN (Azelastine HCl) 0.1 % Spr, 2 SPRAYS NA BID PRN for NASAL CONGESTION Ibuprofen (Ibuprofen) 600 Mg Tab, 600 MG PO TID PRN for PAIN Oxycodone/Acetaminophen (Percocet 5-325 mg) 1 Tab Tab, 1 TAB PO BID PRN for PAIN Allergies Coded Allergies: No Known Allergies (Unverified , 08/07/18) SHANTANU MANNING MD Aug 07, 2018 23:59
[2018-08-08 00:10] VITALS: BP 132/74
[2018-08-08] MEDS: ADVAIR HFA 230/21MCG INHALER INH SCH ×3 (00:56→20:35)
[2018-08-08 04:00] VITALS: BP 126/72
[2018-08-08 06:00] LABS: BASO % 0.8 % (0.0-1.0); EOS % 0.8 % (0.0-3.0); HEMOGLOBIN 9.7 g/dl (12.0-15.5); LYMPH # 0.5 10^3/uL (1.5-4.5); LYMPH % 19.8 % (24.0-44.0); MEAN CORPUSCULAR HGB CONC 31.3 g/dl (32.0-36.5); MEAN CORPUSCULAR VOLUME 92.8 fl (80.0-96.0); MONO # 0.3 10^3/uL (0.0-0.8); MONO % 13.3 % (0.0-5.0); NEUTROPHILS # 1.6 10^3/uL (1.8-7.7); NEUTROPHILS % 65.3 % (36.0-66.0); PLATELET COUNT, AUTOMATED 182 10^3/uL (150-450); RED BLOOD COUNT 3.34 10^6/uL (4.00-5.40); WHITE BLOOD COUNT 2.5 10^3/uL (4.0-10.0)
[2018-08-08 06:15] LABS: BLOOD UREA NITROGEN 8 MG/DL (7-18); CARBON DIOXIDE LEVEL 21 MEQ/L (21-32); CHLORIDE LEVEL 114 MEQ/L (98-107); CREATININE FOR GFR 0.74 MG/DL (0.55-1.30); GLOMERULAR FILTRATION RATE > 60.0 (>51); GLUCOSE, FASTING 117 MG/DL (70-100); POTASSIUM SERUM 3.9 MEQ/L (3.5-5.1); SODIUM LEVEL 142 MEQ/L (136-145)
[2018-08-08 08:00] VITALS: BP 124/71
[2018-08-08] MEDS: HEPARIN SOD (PORCINE) 5000 UNITS/ML VIAL SQ SCH ×2 (08:00→20:00)
[2018-08-08] MEDS: PANTOPRAZOLE 40MG TAB (PROTONIX) PO SCH (08:17)
[2018-08-08] MEDS: NS 1,000 ML IV SCH (08:19)
[2018-08-08] MEDS: PIPERACILLIN/TAZOBACTAM SOD 3.375 GM in D5W MINI-BAG PLUS 50 ML IV SCH ×4 (08:19→15:41)
[2018-08-08] MEDS ORDERED: PIPERACILLIN/TAZOBACTAM SOD 3.375 GM in D5W MINI-BAG PLUS 50 ML IV SCH (08:30)
[2018-08-08] MEDS: ACETAMINOPHEN TAB 650MG DOSE (2X325MG) PO PRN ×2 (08:31→20:12)
[2018-08-08 11:13] LABS: C REACTIVE PROTEIN QUANTITATIV 4.43 MG/DL (0.00-0.30)
[2018-08-08 12:00] VITALS: BP 108/65
[2018-08-08] MEDS: guaiFENesin ER 600 MG TAB PO SCH ×2 (13:58→20:12)
[2018-08-08] MEDS: LEVOTHYROXINE 100MCG TABLET (0.1MG) PO SCH (15:42)
[2018-08-08 16:00] VITALS: BP 126/77
--- NOTE | 2018-08-08 19:00 | ECGEPIP ---
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
[2018-08-08 20:00] VITALS: BP 128/82
[2018-08-09] VITALS: BP 136/65
[2018-08-09] MEDS: PIPERACILLIN/TAZOBACTAM SOD 3.375 GM in D5W MINI-BAG PLUS 50 ML IV SCH ×2 (00:02→09:28)
[2018-08-09 04:00] VITALS: BP 119/73
[2018-08-09 05:01] LABS: HEMOGLOBIN 9.5 g/dl (12.0-15.5); MEAN CORPUSCULAR HEMOGLOBIN 29.3 pg (27.0-33.0); MEAN CORPUSCULAR HGB CONC 32.8 g/dl (32.0-36.5); MEAN CORPUSCULAR VOLUME 89.5 fl (80.0-96.0); PLATELET COUNT, AUTOMATED 171 10^3/uL (150-450); RED BLOOD COUNT 3.24 10^6/uL (4.00-5.40); WHITE BLOOD COUNT 2.5 10^3/uL (4.0-10.0)
[2018-08-09 05:25] LABS: BLOOD UREA NITROGEN 7 MG/DL (7-18); CALCIUM LEVEL 7.9 MG/DL (8.5-10.1); CARBON DIOXIDE LEVEL 23 MEQ/L (21-32); CHLORIDE LEVEL 112 MEQ/L (98-107); CREATININE FOR GFR 0.72 MG/DL (0.55-1.30); GLOMERULAR FILTRATION RATE > 60.0 (>51); GLUCOSE, FASTING 88 MG/DL (70-100); POTASSIUM SERUM 3.4 MEQ/L (3.5-5.1); SODIUM LEVEL 144 MEQ/L (136-145)
[2018-08-09] MEDS: LEVOTHYROXINE 100MCG TABLET (0.1MG) PO SCH (06:12)
--- NOTE | 2018-08-09 07:00 | IPN ---
DATE OF SERVICE: 08/08/2018 Patient seen and examined. Was admitted overnight with fevers. Currently is afebrile. Reported mild cough. No shortness of breath. Denies any chest pain, pressure, discomfort. Vital signs: Temperature 98.4, pulse 94, respiration 18, blood pressure 108/65, pulse oximetry 98% on room air. LABORATORY: WBC 2.5, hemoglobin and hematocrit 9.7/31, platelets 182. Chemistry: Sodium 142, potassium 3.9, chloride 114, bicarbonate 21, BUN 8, creatinine 0.75. Respiratory panel positive for human metapneumovirus. PHYSICAL EXAMINATION: General: Patient alert, comfortable, in no acute distress. HEENT: Normocephalic, atraumatic. Cardiac: Regular S1, S2. Pulmonary: Mild coarse breath sounds bilateral. Abdomen: Soft, nontender. Positive bowel sounds. Extremities: No clubbing, cyanosis or edema. ASSESSMENT AND PLAN: This is a 57-year-old female patient with underlying medical history of chronic obstructive pulmonary disease (COPD), hypothyroidism, adenocarcinoma of the lung status post chemo and radiation currently on immunotherapy with positive sick contact admitted with fevers and bronchitis secondary to human metapneumovirus. PROBLEMS: 1. Fevers and bronchitis secondary to human metapneumovirus, empirically started on Zosyn. Chest x-ray appreciated. If culture is negative, we will discontinue IV antibiotics as well as sputum culture. Monitor for clinical improvement. 2. Chronic obstructive pulmonary disease (COPD). Currently patient does not have any wheeze, is comfortable. Acapella has been ordered. Mucinex has been ordered. Continue Advair. 3. Hypothyroidism. Continue Synthroid. 4. Adenocarcinoma of the lung. Outpatient followup. X-ray is appreciated. 5. Deep venous thrombosis (DVT) prophylaxis. Heparin subcutaneous. DISPOSITION: Pending clinical improvement. Will likely discharge in the next 24 hours.
[2018-08-09] MEDS: ADVAIR HFA 230/21MCG INHALER INH SCH (07:39)
[2018-08-09] MEDS ORDERED: POTASSIUM CHLORIDE 10 MEQ SR TABLET PO ONE (07:45)
[2018-08-09 08:00] VITALS: BP 148/70
[2018-08-09] MEDS: HEPARIN SOD (PORCINE) 5000 UNITS/ML VIAL SQ SCH (08:00)
[2018-08-09 08:03] LABS: C REACTIVE PROTEIN QUANTITATIV 2.24 MG/DL (0.00-0.30)
[2018-08-09] MEDS: PANTOPRAZOLE 40MG TAB (PROTONIX) PO SCH (08:54)
[2018-08-09] MEDS: guaiFENesin ER 600 MG TAB PO SCH (09:00)
[2018-08-09] MEDS ORDERED: MELOXICAM (MOBIC) 7.5 MG TAB PO SCH (09:00)
[2018-08-09] MEDS ORDERED: MUCI600T37 PO (11:13)
--- NOTE | 2018-08-10 14:01 | DSES ---
DATE OF ADMISSION: 08/07/2018 DATE OF DISCHARGE: 08/09/2018 PRIMARY CARE PROVIDER: Daisy Griffith MD FINAL DIAGNOSES: Bronchitis secondary to human metapneumovirus infection. Fevers. History of chronic obstructive pulmonary disease (COPD). Hypothyroidism. Adenocarcinoma of the lung. HISTORY OF PRESENT ILLNESS: This is a 57-year-old female patient with underlying medical history of COPD, hypothyroidism, adenocarcinoma of the lung status post chemotherapy and radiation, currently receiving immunotherapy. Last dose was on . Patient was in her usual state of health on when she received her immunotherapy; however, 2 days after, patient started having cough, productive of whitish and yellowish phlegm, associated with shortness of breath. No hemoptysis. Patient also reported subjective fevers and chills at home. Reported her was sick and some other relatives are also sick with upper respiratory infections. Subsequently, patient presented to emergency room. Patient was given antibiotics in the emergency room. HOSPITAL COURSE: Patient was given antibiotics in the emergency room, which was also continued. Blood culture was sent. IV fluids were also given. Nebulized treatment/inhalers was provided. Patient's cultures were sent. Blood culture was sent. Sputum culture was sent as well as respiratory panel, which shows human metapneumovirus. Given culture has been negative for 48 hours, antibiotics were discontinued. Patient symptoms gradually improved, and subsequently arrangements are made for the patient to be discharged home for further care as per outpatient provider. Patient currently tolerating oral, was comfortable, in no significant respiratory distress, ready to be discharged for further care as outpatient. VITAL SIGNS: Temperature 99.2, pulse 104, respirations 22, blood pressure 148/70, pulse oximetry 95% on room air. LABORATORY: WBC 2.5, hemoglobin and hematocrit 9.5/29, platelets 171. Chemistry: Sodium 144, potassium 3.4, chloride 112, bicarbonate 23, BUN 7, creatinine 0.72. C-reactive protein initially 4.4, currently down to 2.24. GENERAL: Patient alert, comfortable, in no acute distress. HEENT: Normocephalic, atraumatic. CARDIAC: Regular, S1, S2. PULMONARY: Coarse breath sounds. No wheeze. Good air flow. ABDOMEN: Soft, nontender. Positive bowel sounds. EXTREMITIES: No clubbing, cyanosis, or edema. DISCHARGE SUMMARY: - Mucinex 600 mg by mouth twice a day - azelastine 0.1% nasal spray twice a day as needed - ibuprofen 600 mg by mouth three times a day as needed - Synthroid 100 mcg by mouth daily - meloxicam 15 mg by mouth daily - Percocet 5/325 mg by mouth twice a day as needed - Advair 250/50 mcg inhalation twice a day DISCHARGE INSTRUCTIONS: Please see primary care provider in 7 days. Return to the hospital if symptoms worsen. Continue to followup with hematology/oncology for further care for underlying lung cancer.
== END 2018-08-09 11:52 | disposition home or self-care (01) | DRG 138 ==
LOC: M ED 19:13 → M ED INP 22:41 → M PCU 08-08 00:03
PROVIDERS: ADMIT Hospitalist; ATTEND Hospitalist
DX: J21.1 Acute bronchiolitis due to human metapneumovirus (principal); J44.9 Chronic obstructive pulmonary disease, unspecified; C34.90 Malignant neoplasm of unspecified part of unspecified bronchus or lung; E03.9 Hypothyroidism, unspecified; Z79.899 Other long term (current) drug therapy; Z87.891 Personal history of nicotine dependence

== ENCOUNTER 2018-08-23 11:36 | Outpatient (RCR) | payer OTHER ==
[~2018-08-23 11:36] MED LIST changes: +AZEL1SPR3; +IBUP1TAB6 PO; +MUCI600T37 PO
== END 2018-08-24 | disposition home or self-care (01) ==
LOC: M PT 11:36
PROVIDERS: ATTEND Internal Medicine Medical Oncology
DX: Z51.89 Encounter for other specified aftercare (principal); M25.511 Pain in right shoulder

== ENCOUNTER → 2018-09-07 | Outpatient (CLI) | payer OTHER ==
--- NOTE | 2018-09-07 21:33 | ECHO ---
DATE OF PROCEDURE: 09/07/2018 AGE: 58 GENDER: Female HEIGHT: 59 inches WEIGHT: 114 pounds BODY SURFACE AREA: 1.46 ms PATIENT LOCATION: Outpatient REFERRING PHYSICIAN: Dr. Seng Harman INDICATION: Followup pericardial effusion. 2-D MEASUREMENTS: RV: 2.3 cm LV: 3.6 cm Septum: 0.9 cm Posterior wall: 0.9 cm Aortic root: 2.5 cm LA: 3.0 cm LVEF: 70 - 75% DOPPLER MEASUREMENTS: AV: 1.6 m/s LVOT: 1.2 m/s LVOT diameter: 1.7 cm MV-E: 100, A: 110, EA ratio: 1 Early mitral deceleration time: 130 ms E prime: 7, A prime: 11, E/E prime ratio: 14.8 PV: 0.95 m/s Pulmonary artery acceleration time: 85 ms PASP: 41 mmHg IVC: 1.3 m/s COMMENTS: Normal sinus rhythm without significant disturbance. M-mode and two-dimensional echocardiography was performed with pulse, continuous wave, color-flow and tissue Doppler studies Normal left ventricular size wall thickness and hyperkinetic wall motion Normal left atrial size and Doppler assessment of LV diastolic function with current estimated mean left atrial pressure upper limits of normal to mildly elevated. Normal right heart chamber sizes and motion with Doppler evidence of moderate pulmonary hypertension Normal IVC size slightly reduce collapse with central venous pressure upper limits of normal. Asymmetrical aortic valvular sclerosis without stenosis but mild to moderate eccentric insufficiency Normal-appearing mitral valve with very mild insufficiency. Normal appearing tricuspid valve with trace insufficiency. Normal aortic root size. At least moderate size pericardial effusion measuring 1.9 cm posteriorly 1.5 cm laterally and 1.2 cm apically, but no cardiac chamber compression. Pulsed Doppler signals of valvular structures did not show any significant respiratory variation to suggest a cardiac tamponade. No apparent intracardiac mass. Comparing today's study with that of June 07, 2018 the size of the pericardial effusion appears to have increased. MTDD
== END ==
LOC: M CARPUL 08:50
PROVIDERS: ATTEND Thoracic Surgery (Cardiothoracic Vascular Surgery)
DX: I31.3 Pericardial effusion (noninflammatory) (principal)

== ENCOUNTER → 2018-09-12 | Outpatient (CLI) | payer OTHER ==
[~2018-09-12] MED LIST changes: +IPRA3SP; +IPRA3SP INH; +LEVO750T13 PO; +ULTR37.54 PO
--- NOTE | 2018-09-13 08:19 | REP ---
Clinical: Neoplasm right lobe. Comparison: 05/05/2018. Technique: Axial noncontrast images from the thoracic inlet to the upper abdomen with coronal and sagittal re-formations. Findings: Area of mass / consolidation involving the right upper lobe and small/moderate right pleural effusion as well as small/moderate pericardial effusion remain essentially unchanged. The left hemithorax is well-aerated and clear and without consolidation, nodule, or effusion. No axillary adenopathy is appreciated. Mediastinal and hilar adenopathy is poorly evaluated due to the lack of intravenous contrast and surrounding soft tissue and fluid. Musculoskeletal structures are intact. [id number]-S-[id number] identified with tip in the brachiocephalic vein. Limited upper abdomen demonstrates normal bilateral adrenal glands. Impression: 1. Stable appearance to the area of mass / consolidation in the right upper lung zone and associated pleural effusion and pericardial effusion. 2. No obvious new acute process identified. Electronically Signed by Trevor Marshall MD 09/13/2018 08:11 A
== END ==
LOC: M RAD 09:14
PROVIDERS: ATTEND Internal Medicine Pulmonary Disease
DX: C34.11 Malignant neoplasm of upper lobe, right bronchus or lung (principal)

== ENCOUNTER 2018-09-14 16:08 | Inpatient (IN) | payer OTHER ==
[~2018-09-14] VITALS: Ht 149.9 cm; Wt 54.4 kg
[~2018-09-14 16:08] MED LIST changes: -IPRA3SP; -IPRA3SP INH; -LEVO750T13 PO; -ULTR37.54 PO
[2018-09-14] MEDS ORDERED: IPRA3SP INH (16:21)
[2018-09-14] MEDS ORDERED: ACETAMINOPHEN 325 MG TAB PO ONE ×2 (16:45→18:30)
[2018-09-14] MEDS ORDERED: NS 1,000 ML IV ONE ×2 (17:30→20:15)
[2018-09-14] MEDS ORDERED: IPRATROPIUM 0.5MG/ALBUTEROL 2.5MG INH SOL UD 3ML (DUONEB)(J7620) NEB PRN (17:30)
[2018-09-14] MEDS ORDERED: ONDANSETRON 4MG/2ML VIAL (J2405) IV ONE (17:30)
--- NOTE | 2018-09-14 17:57 | REP ---
Chest one-view HISTORY: Cough Comparison: 08/07/[address] 09/12/2018 There is loss of volume in the right hemithorax with shift of the mediastinal structures to the right. Ill-defined parenchymal density is present in the right upper lobe consistent with a mass and postobstructive atelectasis and/or scarring. The left lung is clear. The heart is normal in size. The pulmonary vasculature is normal in appearance. An Jvyzxn-T-Oelo catheter is present. Impression: There Is ill-defined parenchymal density in the right upper lobe consistent with a mass and postobstructive atelectasis and/or scarring. Electronically Signed by Karthikeyan Paige MD 09/14/2018 05:49 P
[2018-09-14 18:06] LABS: BASO % 0.2 % (0.0-1.0); EOS % 0.2 % (0.0-3.0); HEMATOCRIT 33.8 % (36.0-47.0); HEMOGLOBIN 10.8 g/dl (12.0-15.5); LYMPH # 0.6 10^3/uL (1.5-4.5); LYMPH % 12.6 % (24.0-44.0); MEAN CORPUSCULAR VOLUME 90.6 fl (80.0-96.0); MONO # 0.4 10^3/uL (0.0-0.8); MONO % 9.8 % (0.0-5.0); NEUTROPHILS # 3.5 10^3/uL (1.8-7.7); PLATELET COUNT, AUTOMATED 169 10^3/uL (150-450); RED BLOOD COUNT 3.73 10^6/uL (4.00-5.40); WHITE BLOOD COUNT 4.5 10^3/uL (4.0-10.0)
[2018-09-14 18:30] LABS: ALBUMIN 3.4 GM/DL (3.2-5.2); ALT/SGPT 23 U/L (12-78); BILIRUBIN,DIRECT < 0.1 MG/DL (0.0-0.2); BILIRUBIN,TOTAL 0.2 MG/DL (0.2-1.0); BLOOD UREA NITROGEN 9 MG/DL (7-18); CALCIUM LEVEL 9.2 MG/DL (8.5-10.1); CARBON DIOXIDE LEVEL 22 MEQ/L (21-32); CHLORIDE LEVEL 105 MEQ/L (98-107); CREATININE FOR GFR 0.79 MG/DL (0.55-1.30); GLOMERULAR FILTRATION RATE > 60.0 (>51); GLUCOSE, FASTING 126 MG/DL (70-100); POTASSIUM SERUM 3.8 MEQ/L (3.5-5.1); SODIUM LEVEL 136 MEQ/L (136-145); TOTAL PROTEIN 7.4 GM/DL (6.4-8.2)
[2018-09-14] MEDS ORDERED: PIPERACILLIN/TAZOBACTAM SOD 3.375 GM in D5W MINI-BAG PLUS 50 ML IV ONE (21:15)
[2018-09-14] MEDS ORDERED: IPRA3SP (23:43)
[2018-09-14] MEDS ORDERED: ULTR37.54 PO (23:43)
[2018-09-14] MEDS ORDERED: SYNT100T PO (23:43)
[2018-09-15] MEDS: NS 1,000 ML IV SCH ×3 (00:41→21:40)
[2018-09-15] MEDS ORDERED: PERCOCET 5MG/325MG TAB PO PRN (00:45)
[2018-09-15] MEDS ORDERED: MORPHINE 4 MG/ML 1ML VIAL/SYRINGE (J2270) IV PRN (00:45)
[2018-09-15] MEDS ORDERED: ONDANSETRON 4 MG TAB (S0181) PO PRN (00:45)
[2018-09-15] MEDS ORDERED: BISACODYL 5 MG TAB PO PRN (00:45)
[2018-09-15] MEDS ORDERED: IPRATROPIUM 0.5MG/ALBUTEROL 2.5MG INH SOL UD 3ML (DUONEB)(J7620) NEB PRN (01:00)
[2018-09-15 02:45] VITALS: BP 99/73
--- NOTE | 2018-09-15 02:54 | HPEPDOC ---
[facility] Medical History & Physical Date of Admission Sep 15, 2018 History and Physical CHIEF COMPLAINT: FEVER HISTORY OF PRESENT ILLNESS: Patient is a 57-year-old woman with history of COPD, hypothyroidism, and adenocarcinoma of the lung. She is status post chemotherapy and radiotherapy. Currently she is receiving immunotherapy and last chemo was 2 weeks ago. She had fever of 103 at home, with mild dry cough. She denies any chest pain or palpitations. No change in her bowel or urinary habits. She was evaluated in the emergency room with a temperature of 102. Chest x-ray unchanged from previous and respiratory panel sent, pending. Ros - all 14v point ROS is negative except for what's stated in hpi PAST MEDICAL HISTORY: Per HPI PAST SURGICAL HISTORY: 1. section. 2. Port placement. SOCIAL HISTORY: and lives with her . Quit smoking over 12 years. Denies alcohol, denies illicit drug use. FAMILY HISTORY: Father: , from complications of pancreatic cancer Mother: , from complications of emphysema Cancers runs in the family ALLERGIES: Please see below. HOME MEDICATIONS: Please see below. Physical Exam GEN: NAD , normal built HEENT: normocephalic, atraumatic, PERRLA, EOMI, external ears appears normal, neck supple, no pharyngeal erythema CVS : normal S1, S2 no murmur, rubs or gallops , PMI nondisplaced RESP: no rals, rhonchi, crackles, mild scattered wheezes ABD - +BS, soft, NT, ND , no cva tenderness MSK no joint swelling, FROM, no muscle tenderness Neuro no focal deficit, AOAX3 Lymphatics- no lymphedema, no lymphadenopathy in cervical and supraclavicular chains Psych- normal mood and affect, good judgement and insight LABORATORY DATA: See below. IMAGING: MICROBIOLOGY: Please see below. ASSESSMENT and plan possible vpost obstructive pna - c/w abx - f/u sputum w/u - duoneb copd resume home meds - prn duoneb treament cardiomegaly on cxr -f/u echo c/w home meds otherwise - f/u tsh dvt ppx - lovenox full code, from home, no svc Vital Signs Vital Signs Date Time Temp Pulse Resp B/P (MAP) Pulse Ox O2 Delivery O2 Flow Rate FiO2 09/14/18 22:31 93 18 95 Room Air 09/14/18 22:30 94/56 (69) 09/14/18 20:46 2.0 09/14/18 19:34 100.3 Laboratory Data Labs 24H Laboratory Tests 2 09/14/18 17:42: Immature Granulocyte % (Auto) 0.2, White Blood Count 4.5, Red Blood Count 3.73L, Hemoglobin 10.8L, Hematocrit 33.8L, Mean Corpuscular Volume 90.6, Mean Corpuscular Hemoglobin 29.0, Mean Corpuscular Hemoglobin Concent 32.0, Red Cell Distribution Width 13.7, Platelet Count 169, Neutrophils (%) (Auto) 77.0H, Lymphocytes (%) (Auto) 12.6L, Monocytes (%) (Auto) 9.8H, Eosinophils (%) (Auto) 0.2, Basophils (%) (Auto) 0.2, Neutrophils # (Auto) 3.5, Lymphocytes # (Auto) 0.6L, Monocytes # (Auto) 0.4, Eosinophils # (Auto) 0.0, Basophils # (Auto) 0.0, Nucleated Red Blood Cells % (auto) 0.0, Anion Gap 9, Glomerular Filtration Rate > 60.0, Calcium Level 9.2, Aspartate Amino Transf (AST/SGOT) 28, Alanine Aminotransferase (ALT/SGPT) 23, Alkaline Phosphatase 88, Total Bilirubin 0.2, Direct Bilirubin < 0.1, Total Protein 7.4, Albumin 3.4, Albumin/Globulin Ratio 0.85L 09/14/18 20:53: Urine Color COLORLESS, Urine Appearance CLEAR, Urine pH 6.0, Urine Specific [place] 1.001L, Urine Protein NEGATIVE, Urine Glucose (UA) NEGATIVE, Urine Ketones NEGATIVE, Urine Blood NEGATIVE, Urine Nitrite NEGATIVE, Urine Bilirubin NEGATIVE, Urine Urobilinogen 0.2, Urine Leukocyte Esterase 1+H, Urine WBC (Auto) 4H, Urine RBC (Auto) 1, Urine Hyaline Casts (Auto) 0, Urine Bacteria (Auto) NE GATIVE, Urine Squamous Epithelial Cells 0, Urine Sperm (Auto) 09/14/18 21:12: Lactic Acid Level 0.8 CBC/BMP Laboratory Tests 09/14/18 17:42 Red Blood Count 3.73 L, Mean Corpuscular Volume 90.6, Mean Corpuscular Hemoglobin 29.0, Mean Corpuscular Hemoglobin Concent 32.0, Red Cell Distribution Width 13.7, Neutrophils (%) (Auto) 77.0 H, Lymphocytes (%) (Auto) 12.6 L, Monocytes (%) (Auto) 9.8 H, Eosinophils (%) (Auto) 0.2, Basophils (%) (Auto) 0.2, Neutrophils # (Auto) 3.5, Lymphocytes # (Auto) 0.6 L, Monocytes # (Auto) 0.4, Eosinophils # (Auto) 0.0, Basophils # (Auto) 0.0 Microbiology Microbiology 09/14/18 Blood Culture, Received Pending 09/14/18 Blood Culture, Received Pending 09/14/18 Urine Culture, Received Pending Home Medications Scheduled Levothyroxine Sodium (Synthroid) 100 Mcg Tab, 100 MCG PO DAILY Salmeterol/Fluticasone (Advair Diskus 250-50 Mcg/Dose) 14 Puff/Inhaler Aerp, 1 PUFF INH BID Scheduled PRN Ipratropium [place] (Ipratropium [place]) 345 [place]/30 Ml Naspr, 1 SPRAY NA BID PRN for CONGESTION Tramadol/Apap (Ultracet 37.5-325 mg) 1 Tab Tab, 1 TAB PO Q4H PRN for PAIN Allergies Coded Allergies: No Known Allergies (Unverified , 08/07/18) KINGSTON LYON MD Sep 14, 2018 23:27
[2018-09-15] MEDS ORDERED: VANCOMYCIN HCL 1,000 MG, VIAL MATE ADAPTER 1 EACH in D5W 250 ML IV ONE (03:30)
--- NOTE | 2018-09-15 04:46 | PHACANCOPD ---
PHARMACY VANCOMYCIN DOSING Pt Demographics Demographics Patient Age:58 , Weight:54.400 , Gender: female Adjusted Body Weight Date: 09/15/18, Adjusted Body Weight: [54.4] Kg ACTUAL WT Vancomycin Vancomycin indication: HCAP Vancomycin Target Ranges: 10-20 mcg/ml Vancomycin Load Y/N: No Load Dose Date Time Vancomycin Load Dose: Date: Time: Vancomycin Dose Date: 09/15/18. Current Vancomycin Dose: [1 GM Q12] Intermittent Dosing?: No Labs Labs Laboratory Tests 09/14/18 17:42 Red Blood Count 3.73 L, Mean Corpuscular Volume 90.6, Mean Corpuscular Hemoglobin 29.0, Mean Corpuscular Hemoglobin Concent 32.0, Red Cell Distribution Width 13.7, Neutrophils (%) (Auto) 77.0 H, Lymphocytes (%) (Auto) 12.6 L, Monocytes (%) (Auto) 9.8 H, Eosinophils (%) (Auto) 0.2, Basophils (%) (Auto) 0.2, Neutrophils # (Auto) 3.5, Lymphocytes # (Auto) 0.6 L, Monocytes # (Auto) 0.4, Eosinophils # (Auto) 0.0, Basophils # (Auto) 0.0 Micro Microbiology 09/14/18 Blood Culture, Received Pending 09/14/18 Blood Culture, Received Pending 09/14/18 Urine Culture, Received Pending Creatinine Clearance Date:09/15/18. Creatinine Clearance: [68.3]. Pending Labs Vancomycin trough due 09/16@1100 Assessment and Plan Maintaining Current Dose?: Yes Reason for dose change: No Dose Change Pharmacist Note Pharmacist Note Date: 09/15/18. Pharmacist note:[id number] w/ HCAP .Receiving Pip/Tazo 2.25 gm Q8H plus Vancomycin per Pharmacy consult. SCR=0.79,CRCL=68.3 calculated.Vancomycin 1 gmiv09/15@0400, Then will begin 1 gram [id number] at 1200. First Vancomycin trough is scheduled for 09/16@1100( prior to the 4th dose) [facility] Sep 15, 2018 04:46
[2018-09-15 06:00] VITALS: BP 104/75
[2018-09-15] MEDS: LEVOTHYROXINE 100MCG TABLET (0.1MG) PO SCH (06:04)
[2018-09-15] MEDS: PIPERACILLIN/TAZOBACTAM SOD 2.25 GM in D5W MINI-BAG PLUS 50 ML IV SCH ×3 (06:04→21:40)
[2018-09-15] MEDS: ACETAMINOPHEN TAB 650MG DOSE (2X325MG) PO PRN ×2 (06:25→15:52)
--- NOTE | 2018-09-15 06:27 | ECGEPIP ---
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
[2018-09-15 06:48] LABS: BASO % 0.4 % (0.0-1.0); EOS % 1.7 % (0.0-3.0); LYMPH # 0.4 10^3/uL (1.5-4.5); LYMPH % 17.5 % (24.0-44.0); MEAN CORPUSCULAR HEMOGLOBIN 28.7 pg (27.0-33.0); MEAN CORPUSCULAR HGB CONC 31.3 g/dl (32.0-36.5); MEAN CORPUSCULAR VOLUME 91.7 fl (80.0-96.0); MONO # 0.3 10^3/uL (0.0-0.8); MONO % 12.4 % (0.0-5.0); NEUTROPHILS # 1.6 10^3/uL (1.8-7.7); PLATELET COUNT, AUTOMATED 150 10^3/uL (150-450); RED BLOOD COUNT 3.49 10^6/uL (4.00-5.40); WHITE BLOOD COUNT 2.3 10^3/uL (4.0-10.0)
[2018-09-15 07:19] LABS: BLOOD UREA NITROGEN 8 MG/DL (7-18); CALCIUM LEVEL 8.2 MG/DL (8.5-10.1); CARBON DIOXIDE LEVEL 23 MEQ/L (21-32); CHLORIDE LEVEL 111 MEQ/L (98-107); CREATININE FOR GFR 0.69 MG/DL (0.55-1.30); GLOMERULAR FILTRATION RATE > 60.0 (>51); GLUCOSE, FASTING 107 MG/DL (70-100); POTASSIUM SERUM 3.5 MEQ/L (3.5-5.1); SODIUM LEVEL 143 MEQ/L (136-145); THYROID STIMULATING HORMONE 0.086 uIU/ML (0.358-3.740)
[2018-09-15] MEDS: ENOXAPARIN 40 MG/0.4 ML SYRINGE (J1650) SC SCH (09:00)
[2018-09-15] MEDS: VANCOMYCIN HCL 1,000 MG, VIAL MATE ADAPTER 1 EACH in D5W 250 ML IV SCH (12:38)
[2018-09-15] MEDS ORDERED: IBUPROFEN 400 MG TAB PO ONE (13:45)
[2018-09-15 14:00] VITALS: BP 158/74
[2018-09-15] MEDS: guaiFENesin 200 MG TAB PO PRN (19:44)
[2018-09-15] MEDS: ADVAIR HFA 115/21MCG INHALER INH SCH (19:58)
[2018-09-15 22:00] VITALS: BP 125/69
[2018-09-16] MEDS: VANCOMYCIN HCL 1,000 MG, VIAL MATE ADAPTER 1 EACH in D5W 250 ML IV SCH ×2 (00:24→12:55)
[2018-09-16] MEDS: guaiFENesin 200 MG TAB PO PRN (05:02)
[2018-09-16] MEDS: PIPERACILLIN/TAZOBACTAM SOD 2.25 GM in D5W MINI-BAG PLUS 50 ML IV SCH ×3 (05:02→21:30)
[2018-09-16 06:00] VITALS: BP 134/82
[2018-09-16 06:39] LABS: EOS % 1.2 % (0.0-3.0); HEMATOCRIT 31.8 % (36.0-47.0); HEMOGLOBIN 9.9 g/dl (12.0-15.5); LYMPH # 0.5 10^3/uL (1.5-4.5); LYMPH % 19.5 % (24.0-44.0); MEAN CORPUSCULAR HEMOGLOBIN 28.1 pg (27.0-33.0); MEAN CORPUSCULAR HGB CONC 31.1 g/dl (32.0-36.5); MEAN CORPUSCULAR VOLUME 90.3 fl (80.0-96.0); MONO # 0.3 10^3/uL (0.0-0.8); MONO % 10.9 % (0.0-5.0); NEUTROPHILS # 1.8 10^3/uL (1.8-7.7); PLATELET COUNT, AUTOMATED 129 10^3/uL (150-450); RED BLOOD COUNT 3.52 10^6/uL (4.00-5.40); WHITE BLOOD COUNT 2.6 10^3/uL (4.0-10.0)
[2018-09-16] MEDS: LEVOTHYROXINE 100MCG TABLET (0.1MG) PO SCH (06:43)
[2018-09-16] MEDS: ACETAMINOPHEN TAB 650MG DOSE (2X325MG) PO PRN ×2 (06:48→11:38)
[2018-09-16 06:56] LABS: BLOOD UREA NITROGEN 4 MG/DL (7-18); CALCIUM LEVEL 8.5 MG/DL (8.5-10.1); CARBON DIOXIDE LEVEL 23 MEQ/L (21-32); CHLORIDE LEVEL 108 MEQ/L (98-107); CREATININE FOR GFR 0.76 MG/DL (0.55-1.30); GLOMERULAR FILTRATION RATE > 60.0 (>51); GLUCOSE, FASTING 123 MG/DL (70-100); MAGNESIUM LEVEL 1.8 MG/DL (1.8-2.4); POTASSIUM SERUM 3.4 MEQ/L (3.5-5.1); SODIUM LEVEL 139 MEQ/L (136-145)
[2018-09-16] MEDS: ADVAIR HFA 115/21MCG INHALER INH SCH ×2 (07:48→20:02)
[2018-09-16] MEDS: ENOXAPARIN 40 MG/0.4 ML SYRINGE (J1650) SC SCH (08:59)
[2018-09-16 14:00] VITALS: BP 112/64
[2018-09-16] MEDS ORDERED: MAG SULF 1GM/100ML (MAG RUN) 1 GM in APPROPRIATE DILUENT 1 EA IV ONE (14:00)
[2018-09-16] MEDS ORDERED: POTASSIUM CHLORIDE 10 MEQ SR TABLET PO ONE (14:15)
--- NOTE | 2018-09-16 16:05 | IPN ---
DATE: 09/16/2018 SUBJECTIVE: The patient tells me she is feeling somewhat better today. She has no specific complaints at this time. OBJECTIVE: VITAL SIGNS: Temperature 99.9, maximum temperature (T-max) was 100.2 in the last 24 hours, heart rate 111, respiratory rate 22, blood pressure 134/82, oxygen saturation 93% on room air. GENERAL: She is a pleasant, middle-aged female, up ambulating around her room independently, she does not appear to be in any acute distress. HEENT: Cranial nerves II-XII are grossly intact. She has very poor dentition and a canker sore under her right lip. CARDIOVASCULAR EXAM: S1, S2, is mildly tachycardic, no additional heart sounds appreciated, is not distant, there is no elevation in central venous pressure (CVP). RESPIRATORY EXAM: Clear. ABDOMINAL EXAM: Benign. EXTREMITIES: No clubbing, cyanosis, or edema. LABORATORY STUDIES: WBC 2.6, up from 2.3, hemoglobin 9.9, platelet count 129. Chemistry panel: Sodium 139, potassium 3.4, repleted, chloride 108, bicarbonate 23, BUN 4, creatinine 0.7, TSH is depressed at 0.086. Respiratory panel is negative. Blood cultures are negative. Thus far urine culture is negative. No new imaging. ASSESSMENT AND PLAN: This is a 58-year-old female who presented with fever and cough. 1. Fever and cough likely secondary to a postobstructive pneumonia. We will continue with antibiotics. Her fever is defervescing. Cultures are thus far negative. I suspect she can probably be transitioned to by mouth antibiotics tomorrow and should she remain afebrile could potentially be discharged home to complete a course of levofloxacin. Will continue with Khushi and provide her with Mucinex. 2. Hypothyroidism. Her thyroid stimulating hormone (TSH) was actually quite depressed on her 100 mcg dosing, I will decrease this to 75. She should have outpatient followup with her primary care provider (PCP) regarding this. 3. Chronic obstructive pulmonary disease (COPD). Continue with Khushi Alejandre. Her respiratory status appears to be at baseline. She is up ambulating independently on room air. 4. Cardiomegaly. There was some concern that she was having fevers. The patient recently had an echocardiogram with Dr. Harman's office, whom I did speak with, he plans to see her in September and potentially place a pericardial window at that time. She does not have any tamponade and does not appear to be having any impending tamponade. She has had a recent echocardiogram already and I do not see any benefit in repeating it during this hospitalization. 5. Adenocarcinoma of the lung. She is status post chemotherapy and radiation. Currently receiving immunotherapy. Followup with oncology and Dr. Harman, thoracic surgery. 5. Deep venous thrombosis (DVT) prophylaxis. She is on Lovenox. DISPOSITION: Possibly home tomorrow pending resolution of her fever. Outpatient followup with oncology.
[2018-09-16 22:00] VITALS: BP 110/80
[2018-09-17] MEDS: VANCOMYCIN HCL 1,000 MG, VIAL MATE ADAPTER 1 EACH in D5W 250 ML IV SCH (00:12)
[2018-09-17 06:00] VITALS: BP 126/70
[2018-09-17] MEDS ORDERED: LEVOTHYROXINE 75MCG TABLET (0.075MG) PO SCH (06:00)
[2018-09-17] MEDS: PIPERACILLIN/TAZOBACTAM SOD 2.25 GM in D5W MINI-BAG PLUS 50 ML IV SCH (06:04)
[2018-09-17 06:08] LABS: BASO % 0.5 % (0.0-1.0); EOS % 1.6 % (0.0-3.0); HEMATOCRIT 30.3 % (36.0-47.0); HEMOGLOBIN 9.6 g/dl (12.0-15.5); LYMPH # 0.4 10^3/uL (1.5-4.5); MEAN CORPUSCULAR HGB CONC 31.7 g/dl (32.0-36.5); MEAN CORPUSCULAR VOLUME 88.3 fl (80.0-96.0); MONO # 0.2 10^3/uL (0.0-0.8); MONO % 12.6 % (0.0-5.0); NEUTROPHILS # 1.2 10^3/uL (1.8-7.7); NEUTROPHILS % 63.3 % (36.0-66.0); PLATELET COUNT, AUTOMATED 153 10^3/uL (150-450); RED BLOOD COUNT 3.43 10^6/uL (4.00-5.40)
[2018-09-17 06:29] LABS: BLOOD UREA NITROGEN 5 MG/DL (7-18); CALCIUM LEVEL 8.5 MG/DL (8.5-10.1); CARBON DIOXIDE LEVEL 24 MEQ/L (21-32); CHLORIDE LEVEL 112 MEQ/L (98-107); CREATININE FOR GFR 0.57 MG/DL (0.55-1.30); GLOMERULAR FILTRATION RATE > 60.0 (>51); GLUCOSE, FASTING 84 MG/DL (70-100); MAGNESIUM LEVEL 2.1 MG/DL (1.8-2.4); POTASSIUM SERUM 3.6 MEQ/L (3.5-5.1); SODIUM LEVEL 143 MEQ/L (136-145)
[2018-09-17 07:09] LABS: WHITE BLOOD COUNT 1.8 10^3/uL (4.0-10.0)
[2018-09-17] MEDS ORDERED: LEVO75TA4 PO (07:36)
[2018-09-17] MEDS: ADVAIR HFA 115/21MCG INHALER INH SCH (07:36)
[2018-09-17] MEDS ORDERED: LEVO750T13 PO (07:36)
--- NOTE | 2018-09-18 11:44 | DSES ---
DATE OF ADMISSION: 09/15/2018 DATE OF DISCHARGE: 09/17/2018 DISCHARGE DIAGNOSIS: Postobstructive pneumonia. SECONDARY DIAGNOSES: 1. Fever. 2. Cough. 3. Hypothyroidism. 4. Pericardial effusion. 5. Chronic obstructive pulmonary disease (COPD). 6. Adenocarcinoma of the lung. HOSPITAL COURSE: The patient is a 58-year-old female who normally follows with Dr. Wang regarding her adenocarcinoma of the lung, currently undergoing chemotherapy, who presented to the hospital with fever and a cough. She was empirically treated with broad spectrum antibiotics. Her fever did quickly defervesce and cultures remained negative. Respiratory PCR panel was negative. She had a chest x-ray that was subtly suggestive for pneumonia and postobstructive state. Symptoms did improve. Dr. Zepeda and Dr. Harman were both notified about the patient's hospitalization. She recently had an echocardiogram through Dr. Harman's office and he is planning on seeing her in the near future for possible pericardial window placement. SUBJECTIVE: This morning, the patient tells me that she is feeling much better and she wants to go home. OBJECTIVE: VITAL SIGNS: Temperature 99.7, pulse 94, respiratory rate 17, blood pressure 126/70, oxygen saturation 94% on room air. GENERAL: She is a petite, cantankerous, woman who is up and ambulating around her room independently. She does not appear to be in any acute distress. HEENT: Cranial nerves II through XII are grossly intact. She has very poor dentition. She has a canker sore on her right lip. CARDIOVASCULAR: S1, S2 regular. RESPIRATORY: Respiratory exam is clear. ABDOMINAL EXAM: Benign. EXTREMITIES: No cyanosis, clubbing or edema. LABORATORY STUDIES: WBC 1.8, hemoglobin 9.6, platelet count is 153. Chemistry panel: Sodium 143, potassium 3.6, chloride 112, bicarbonate 24, BUN 5, creatinine 0.5. Microbiology and imaging as outlined above. ASSESSMENT AND PLAN: This is a 58-year-old female with postobstructive pneumonia. 1. Fever and cough, likely secondary to postobstructive pneumonia. Today is day #3 of broad spectrum empiric antibiotics with the cultures being negative at this time. Fever has defervesced. I will transition her to oral Levaquin and discharge her home to complete a 7 day course. She is improved back to her baseline. Certainly, if this is truly a postobstructive pneumonia, she will be high risk for recurrence in the near future. 2. Adenocarcinoma of the lung, status post chemotherapy and radiation. Currently undergoing immunotherapy with Dr. Wang's office. The patient should followup with Dr. Wang, Dr. Harman and Dr. Zepeda. 3. Pericardial effusion. The patient has yet to followup with Dr. Harman. 4. Chronic obstructive pulmonary disease (COPD). She was continued on Advair during her stay. She is at her baseline respiratory status. She is up and ambulating independently on room air. The patient is on ipratropium as well. 5. Hypothyroidism. Her TSH was actually slightly depressed during this stay and as such I did taper down her Synthroid from 100 mcg to 75 mcg. This should be followed with a recheck within the next few weeks with her primary care provider. DISPOSITION: The patient's clinical syndrome has improved. She is being discharged home under the care of her family. She is to followup with oncology in 7 days. Followup with her primary care provider in [address] Zepeda and Dr. Harman as scheduled. She has been advised to return to the emergency room if her symptoms worsen. The patient was noted to have leukopenia, which may have been related to antibiotic while hospitalized, these antibiotics were changed during discharge. She is to have a repeat CBC on 09/19 with the results sent to Dr. Wang's office. MEDICATIONS: At the time of discharge: - levofloxacin 750 mg daily for 5 days - Synthroid 75 mcg daily - ipratropium bromide one spray nasally twice a day for nasal congestion - Advair Diskus 250/50 one puff inhaled twice a day - Tramadol acetaminophen 37.5/325 one tablet every 4 hours as needed for pain Greater than 30 minutes was spent organizing disposition.
== END 2018-09-17 09:30 | disposition home or self-care (01) | DRG 139 ==
LOC: M ED 16:08 → EDBEDREQTM 23:26 → M ED INP 09-15 01:09 → M MS5PR 09-15 03:03
PROVIDERS: ADMIT Internal Medicine; ATTEND Internal Medicine
DX: J18.9 Pneumonia, unspecified organism (principal); I31.9 Disease of pericardium, unspecified; C34.90 Malignant neoplasm of unspecified part of unspecified bronchus or lung; J44.9 Chronic obstructive pulmonary disease, unspecified; E03.9 Hypothyroidism, unspecified; Z87.891 Personal history of nicotine dependence; Z79.899 Other long term (current) drug therapy

== ENCOUNTER 2018-09-20 10:14 | Outpatient (RCR) | payer OTHER | END 2018-09-24 | LOC: M PT 10:14 | PROVIDERS: ATTEND Internal Medicine Medical Oncology | DX: Z51.89 Encounter for other specified aftercare (principal); M25.511 Pain in right shoulder ==

== ENCOUNTER → 2018-09-20 | Outpatient (CLI) | payer OTHER ==
[~2018-09-20] MED LIST changes: +IPRA3SP; +IPRA3SP INH; +LEVO750T13 PO; +ULTR37.54 PO
[2018-09-20 11:48] LABS: HEMOGLOBIN 11.6 g/dl (12.0-15.5); MEAN CORPUSCULAR HEMOGLOBIN 28.1 pg (27.0-33.0); MEAN CORPUSCULAR HGB CONC 31.4 g/dl (32.0-36.5); MEAN CORPUSCULAR VOLUME 89.6 fl (80.0-96.0); PLATELET COUNT, AUTOMATED 197 10^3/uL (150-450); RED BLOOD COUNT 4.13 10^6/uL (4.00-5.40); WHITE BLOOD COUNT 2.7 10^3/uL (4.0-10.0)
== END ==
LOC: M LAB 11:18
PROVIDERS: ATTEND Internal Medicine
DX: D72.819 Decreased white blood cell count, unspecified (principal)

== ENCOUNTER → 2018-10-17 | Outpatient (CLI) | payer OTHER ==
--- NOTE | 2018-10-17 10:17 | REP ---
MRI RIGHT SHOULDER: TECHNIQUE: Axial T2 fat sat, gradient echo, sagittal oblique T2 fat sat, coronal oblique T1, T2 fat sat. There is diffuse ill-defined edema on T2 weighted images involving the supraspinatus, infraspinatus, teres minor and subscapularis muscles, more so in the subscapularis and supraspinatus muscles. Patient has a history of right upper lung mass. The findings probably represent post-radiation muscular edema. The rotator cuff tendons are intact with no tear. I do not see significant hypertrophic changes at the acromioclavicular joint. There is an os acromiale present. Acromion is type 2. Biceps tendon is within the bicipital groove with no tenosynovitis. There is no Hill Sach's deformity. I do not see abnormal signal in the deltoid muscle. There is slight fraying of the biceps labral complex. No labral tear is seen. There is mild edema in the acromion at the junction with the accessory ossicle. There is very small joint effusion. Note is made of right pleural fluid. IMPRESSION: Diffuse edema primarily involving the subscapularis and supraspinatus muscles medially but also involving infraspinatus and teres minor muscles to a lesser extent. Findings are most consistent with post-radiation muscle edema. There is no rotator cuff tear or labral tear. There is slight fraying of the biceps labral complex. Note is made of an os acromiale with mild edema at the junction of the acromion and os acromiale. There is very mild supraspinatus tendinopathy. There is type 2 acromion. Electronically Signed by Ciro Gamboa MD 10/18/2018 10:20 A
== END ==
LOC: M RAD 07:23
PROVIDERS: ATTEND Orthopaedic Surgery Sports Medicine
DX: M25.511 Pain in right shoulder (principal); R60.0 Localized edema; Z92.3 Personal history of irradiation; Z87.09 Personal history of other diseases of the respiratory system

== ENCOUNTER 2018-10-23 11:15 | Outpatient (RCR) | payer OTHER | END 2018-10-24 | LOC: M PT 11:15 | PROVIDERS: ATTEND Family Medicine | DX: M25.511 Pain in right shoulder (principal) ==

== ENCOUNTER 2018-10-25 11:57 | Outpatient (RCR) | payer OTHER ==
[2018-11-15] MEDS ORDERED: LEVO100T5 PO ×3 (11:22→13:15)
== END 2018-11-24 ==
LOC: M PT 11:57
PROVIDERS: ATTEND Family Medicine
DX: M25.511 Pain in right shoulder (principal)

== ENCOUNTER → 2019-01-01 | Outpatient (CLI) | payer OTHER ==
--- NOTE | 2019-01-01 19:31 | ECHO ---
DATE OF PROCEDURE: 01/01/2019 REFERRING PHYSICIAN: Dr. Harman INDICATION: Pericardial effusion. Height 149 cm, weight 50 kg. DIMENSIONS: IVS: 0.5 LV: 4.0 LVPW: 1.1 LA: 2.5 Aorta: 2.3 IVC: 1.4 Mitral E wave velocity: 75 A wave: 101 E prime septal: 4.7 E prime lateral: 9.3 FINDINGS: The study is of acceptable technical quality. The patient is in sinus rhythm. Left ventricle is normal size and systolic function, I estimate left ventricular ejection fraction (LVEF) approximately 60-65%. Computer-calculated LVEF was 69%. Right ventricle also appears normal. Both atria appear normal. Aortic valve is mildly sclerotic but has three cusps and normal mobility. Mitral, tricuspid and pulmonic valves appear grossly normal. Small pericardial effusion is noted that is adjacent principally to mid and distal segments of left ventricle and left ventricle apex. No diastolic collapse of any of four cardiac chambers is noted. Inferior vena cava is of normal size. Aortic root, visualized segment of aortic arch and abdominal aorta all appear normal. Doppler interrogation reveals no significant aortic stenosis and mild or possibly mild to moderate aortic insufficiency. There is trace mitral insufficiency and no significant tricuspid insufficiency. Mitral inflow pattern and tissue Doppler imaging of mitral annulus revealed grade 1 diastolic dysfunction. CONCLUSIONS: 1. Study is of acceptable technical quality. 2. Normal left ventricular (LV) size with normal LV systolic function and grade 1 diastolic dysfunction. 3. Xtet-ze-gxcvjjeg aortic insufficiency. 4. No further significant valvular disease. 5. Small noncompressive pericardial effusion. 6. Normal central venous pressure. 7. Unable to estimate pulmonary artery pressure. 8. Compared to echocardiogram from September 07, 2018, there has been substantial decrease in size of pericardial effusion. COMMENT: Subacute bacterial endocarditis (SBE) prophylaxis is not recommended.
== END ==
LOC: M CARPUL 09:29
PROVIDERS: ATTEND Thoracic Surgery (Cardiothoracic Vascular Surgery)
DX: I31.3 Pericardial effusion (noninflammatory) (principal)

== ENCOUNTER → 2019-01-04 | Outpatient (CLI) | payer OTHER ==
[~2019-01-04] MED LIST changes: +LIDOCAINE 1% MDV 20ML VIAL As Ordered ONE; +LIDOCAINE 2% MDV 20 ML VIAL As Ordered ONE
[2019-01-04 11:56] VITALS: BP 153/68
--- NOTE | 2019-01-08 15:37 | REP ---
Port Removal / ExplantClinical Information: Cancer. Treatment completedPhysician[s]: Dr. SutherlandeProcedure: The patient was advised of the benefits, risks, and alternatives of the procedure and informed consent was obtained.A time out was performed with verification of the patient's name, MRN, site of procedure, and type of procedure to be performed. The patient was positioned in the supine position on the angiographic table. The site was prepped and draped in the usual sterile fashion.Moderate sedation was not required. The physician spent 30 minutes of continuous laiz-ur-ocrk time with the patient.A optical instrument repairer radiograph reveals a left internal jugular vein port.The soft tissues overlying the port were anesthetized with lidocaine. An incision was made over the port using a 15 blade scalpel. The catheter was then freed with blunt dissection and extracted. Pressure was applied to obtain hemostasis. The port was then freed with blunt dissection and subsequently removed. There were no signs of infection. After hemostasis was achieved, the incision was closed with interrupted deep 2-0 Vicryl sutures and Monocryl. The site was cleansed and covered with a sterile dressing.The patient tolerated the procedure well and was returned to the PRU in stable condition.EBL: < 5 mlComplications: Complications.Impression:1. Successful explant of a left internal jugular vein port.2. No signs of infection. Thank you for this referral Electronically Signed by Nanette Manley MD 01/04/2019 03:22 P
== END ==
LOC: M IRPRO 09:32
PROVIDERS: ATTEND Radiology Diagnostic Radiology
DX: Z45.2 Encounter for adjustment and management of vascular access device (principal); C34.90 Malignant neoplasm of unspecified part of unspecified bronchus or lung

== ENCOUNTER → 2019-01-22 | Outpatient (CLI) | payer OTHER ==
[~2019-01-22] MED LIST changes: -LIDOCAINE 1% MDV 20ML VIAL As Ordered ONE; -LIDOCAINE 2% MDV 20 ML VIAL As Ordered ONE
--- NOTE | 2019-01-22 09:22 | REP ---
The PA and lateral chest: Comparisons are the chest CT dated 09/12/2018 and PA and lateral chest dated 08/07/2018. There is chronic complete collapse of the right upper lobe, unchanged. There is volume loss in the right hemithorax with elevation of the right hemidiaphragm and mediastinal shift to the right. Chronic right pleural effusion is suspected. All of these findings are unchanged. Left lung is clear. Cardiac size normal. The izzy, mediastinum, skeletal structures are unchanged. Impression: Chronic right upper lobe collapse. Chronic volume loss in the right hemithorax. Chronic right pleural effusion is suspected. Electronically Signed by Ciro Lawrence MD 01/22/2019 09:13 A
== END ==
LOC: M SMT 08:50
PROVIDERS: ATTEND Thoracic Surgery (Cardiothoracic Vascular Surgery)
DX: C34.11 Malignant neoplasm of upper lobe, right bronchus or lung (principal); J98.11 Atelectasis

== ENCOUNTER → 2019-01-23 | Outpatient (POV) | payer OTHER ==
[~2019-01-23] VITALS: Ht 149.9 cm; Wt 49.5 kg
[2019-01-23 10:25] VITALS: BP 126/68
--- NOTE | 2019-01-23 10:53 | IPNPDOC ---
Text Note Date of Service The patient was seen on 01/23/19. NOTE 2 weeks post port removal. No issues. Site looks clean and dry. Healing well. Impression: healing post port removal. No further follow up required. Thank you for this referral. VS,Von, I+O VS, Argeliae, I+O Vital Signs Date Time Temp Pulse Resp B/P (MAP) Pulse Ox O2 Delivery O2 Flow Rate FiO2 01/23/19 10:25 97.5 93 16 126/68 (87) 98 RIGO SALDAÑA MD Jan 23, 2019 10:53
== END ==
LOC: M IRPOV 10:20
PROVIDERS: ATTEND Radiology Diagnostic Radiology
DX: Z48.812 Encounter for surgical aftercare following surgery on the circulatory system (principal)

== ENCOUNTER → 2019-03-26 | Outpatient (CLI) | payer OTHER ==
[~2019-03-26] MED LIST changes: +AMOX500T2 PO; +ISOVUE-370 76% 100ML VIAL (Q9967) As Ordered ONE
--- NOTE | 2019-03-26 14:25 | REP ---
CT of the chest with IV contrast for follow up of lung carcinoma: Comparisons are the PET CT scan dated 12/05/2018, chest CT dated 09/12/[address] dated 05/05/2018. There is a large right pleural effusion. This is unchanged from all comparison studies. There is a focal area of atelectasis medially in the right upper lobe, unchanged from all prior studies. There was hypermetabolic uptake in this area on the 12/05/[address] scan, however, the uptake was significantly decreased from the PET scan of 2017. The left lung remains clear and unchanged. There is a pericardial effusion, unchanged. There is no mediastinal or left hilar lymph node enlargement. The right hilus is obscured by the pleural effusion and collapse lung. There is no axillary lymph node enlargement. The thoracic aorta is unremarkable. Cardiac size is normal. There is a pericardial effusion, unchanged. Upper abdomen: There is no adrenal mass. The hepatic parenchyma is homogeneous. The gallbladder, pancreas and spleen are unremarkable. There are no lytic, blastic or destructive skeletal changes. Impression: No significant change from the prior studies. Large right pleural effusion obscuring most of the right lower lobe and a upper lobe. There is collapsed right upper lobe along the right mediastinal border, unchanged from the prior studies as described in detail above. There is no adenopathy. No adrenal mass. The left lung remains clear. Electronically Signed by Ciro Lawrence MD 03/26/2019 02:17 P
== END ==
LOC: M RAD 09:43
PROVIDERS: ATTEND Internal Medicine Hematology & Oncology
DX: C34.90 Malignant neoplasm of unspecified part of unspecified bronchus or lung (principal)
CPT/HCPCS: 71260; Q9967

== ENCOUNTER → 2019-03-28 | Outpatient (CLI) | payer OTHER ==
[~2019-03-28] MED LIST changes: -ISOVUE-370 76% 100ML VIAL (Q9967) As Ordered ONE; +LIDO1SOL8 PO; +ONDA8TAB10; +ONDA8TAB10 PO; -ONDA8TAB7; -ONDA8TAB7 PO
[2019-03-28 13:30] VITALS: BP 92/50
--- NOTE | 2019-03-28 14:45 | REP ---
CHEST, TWO VIEWS: Two views of the chest are performed status post right thoracentesis. No pneumothorax is seen. Pleural and parenchymal opacity on the right is stable. Left lung remains clear. Heart and mediastinum are unchanged since prior study of 01/22/2019. IMPRESSION: No pneumothorax status post right thoracentesis. Electronically Signed by Ciro Gamboa MD 03/29/2019 09:09 A
--- NOTE | 2019-03-28 16:03 | REP ---
ULTRASOUND-GUIDED RIGHT THORACENTESIS The procedure was performed under the direct supervision of Dr. Gamboa. The risks and benefits of the procedure were explained to the patient and informed consent was obtained. The right pleural effusion was localized using ultrasound guidance. The skin was prepped and draped in a sterile fashion. 1% lidocaine was used as a local anesthetic. An 8-Welsh multi side-hole catheter was inserted using trocar technique. 435 ml of prakash colored fluid was withdrawn and sent to the lab for analysis. The patient tolerated the procedure well and there were no immediate complications. After the appropriate amount of monitored convalescence the patient was discharged from the department. Electronically Signed by TAZ Martinez 03/28/2019 02:53 P Electronically Signed by Ciro Gamboa MD 03/28/2019 03:55 P
== END ==
LOC: M IRPRO 10:28
PROVIDERS: ATTEND Internal Medicine Hematology & Oncology
DX: C34.11 Malignant neoplasm of upper lobe, right bronchus or lung (principal); J91.8 Pleural effusion in other conditions classified elsewhere

== ENCOUNTER → 2019-06-29 | Outpatient (CLI) | payer OTHER ==
[~2019-06-29] MED LIST changes: +ISOVUE-370 76% 100ML VIAL (Q9967) As Ordered ONE; -LIDO1SOL8 PO; -ONDA8TAB10; -ONDA8TAB10 PO; +ONDA8TAB7; +ONDA8TAB7 PO
--- NOTE | 2019-06-29 12:28 | REP ---
Clinical: Restaging lung cancer. Technique: Axial contrast enhanced images from the thoracic inlet to the upper abdomen with coronal and sagittal re-formations using 100 ml Isovue 370 intravenous contrast material. Comparison: 03/26/2019. Findings: Changes to the right hemithorax remain stable including large pleural effusion, evidence for prior partial resection, and consolidation/partial collapse versus mass in the right perihilar region with only minimal aerated residual right lung. Again these findings are stable when compared to prior examination. The left hemithorax is well-aerated and demonstrate small amount of linear atelectasis versus scar at the lingula. The mediastinum is stable and a suspected pericardial effusion is unchanged. No significant new lesion or adenopathy is appreciated. Limited evaluation of the upper abdomen demonstrates normal bilateral adrenal glands and small stable scattered hyperdensities within the visualized portions of the liver for. Impression: 1. No significant change from prior examination. Detailed findings as described above. 2. No new acute mediastinal or pleuroparenchymal process appreciated. 3. Subtle hyperdensities within the visualized liver similar to prior examination. Electronically Signed by Trevor Marshall MD 06/29/2019 12:20 P
== END ==
LOC: M RAD 10:07
PROVIDERS: ATTEND Internal Medicine Hematology & Oncology
DX: C34.90 Malignant neoplasm of unspecified part of unspecified bronchus or lung (principal); J90 Pleural effusion, not elsewhere classified
CPT/HCPCS: 71260; Q9967

== ENCOUNTER → 2019-08-20 | Outpatient (CLI) | payer OTHER ==
[~2019-08-20] MED LIST changes: -ISOVUE-370 76% 100ML VIAL (Q9967) As Ordered ONE; +LIDO2SOL17 PO; +ONDA8TAB10; +ONDA8TAB10 PO; -ONDA8TAB7; -ONDA8TAB7 PO
--- NOTE | 2019-08-20 20:12 | ECHO ---
DATE OF PROCEDURE: 08/20/2019 REFERRING PHYSICIAN: Dr. Seng Harman INDICATION: Pericardial effusion. Height 149 cm, weight 45 kg. DIMENSIONS: IVS: 0.7 LV: 3.3 LVPW: 0.7 LA: 2.1 Aorta: 2.3 RV: 2.3 IVC: 1.3 Mitral E wave velocity: 97 A wave: 65 E prime septal: 5.7 E prime lateral: 6.5 FINDINGS: The study is of adequate technical quality. The patient is in sinus rhythm. Left ventricle is normal size and has normal contractility, I estimate ejection fraction (EF) around 60-65%. Right ventricle also appears normal size and systolic function. Both atria appear normal. Aortic valve is sclerotic but has preserved mobility. Mitral valve has mild degenerative abnormalities. Tricuspid and pulmonic valves appear normal. There is large circumferential pericardial effusion without signs of cardiac compromise based on 2D imaging. Aortic root is normal. Aortic arch also appears normal. Abdominal aorta was poorly visualized but grossly appears normal. Inferior vena cava is normal size. There appears to be right-sided pleural effusion. Doppler interrogation reveals no aortic stenosis and igyi-js-ugkfuupf aortic insufficiency. There is trace mitral insufficiency. Pulmonic and tricuspid valves are competent. Mitral inflow pattern and tissue Doppler imaging of mitral annulus revealed grade 2 diastolic dysfunction even though quality of the recording was limited by a large pericardial effusion, which causes movement of the myocardium within this pericardial fluid. There is fairly minimal variation on velocities on both mitral and tricuspid inflow. CONCLUSIONS: 1. Study is of adequate technical quality, the patient is in sinus rhythm. 2. Normal left ventricular (LV) size and systolic function, probably grade 2 diastolic dysfunction. 3. Mild to moderate aortic insufficiency. 4. No further significant valvular disease. 5. Large pericardial effusion but without signs of cardiac compromise. 6. Likely normal central venous pressure. 7. Compared to echocardiogram from January 01, 2019, the size of pericardial effusion has increased considerably, otherwise there has been minimal change. COMMENT: Subacute bacterial endocarditis (SBE) prophylaxis is not recommended. Results were discussed with . RADHA
== END ==
LOC: M CARPUL 10:21
PROVIDERS: ATTEND Thoracic Surgery (Cardiothoracic Vascular Surgery)
DX: I31.3 Pericardial effusion (noninflammatory) (principal); I35.1 Nonrheumatic aortic (valve) insufficiency

== ENCOUNTER 2019-08-23 10:31 | Inpatient (IN) | payer OTHER ==
[2019-08-23] VITALS (43 sets, daily range): BP systolic 74–150; BP diastolic 42–86
[2019-08-23] MEDS: KETOROLAC 30 MG/ML VIAL (J1885) IV SCH ×3 (08:00→20:05)
[~2019-08-23 10:31] MED LIST changes: +ACETAMINOPHEN TAB 650MG DOSE (2X325MG) PO PRN; +BISACODYL 10 MG SUPP PR PRN; +LEVALBUTEROL 1.25 MG/0.5 ML CONCENTRATE NEB NEB PRN; +NORCO, ANEXSIA 5/325MG TABLET (HYDROcodone/ACETAMINOPHEN) PO PRN; +ONDANSETRON 4MG/2ML VIAL (J2405) IV PRN; +PERCOCET 5MG/325MG TAB PO PRN
[2019-08-23] MEDS ORDERED: MIDAZOLAM INJ 2 MG/2 ML VIAL (J2250) As Ordered ONE ×3 (11:41→12:24)
[2019-08-23] MEDS ORDERED: LIDOCAINE 1% MDV 20ML VIAL As Ordered ONE (11:42)
[2019-08-23] MEDS ORDERED: flumazeniL 0.5 MG/5 ML VIAL As Ordered ONE (11:42)
[2019-08-23] MEDS: KCL 20MEQ IN D5/NS 1000ML 1,000 ML IV SCH ×2 (11:47→13:13)
[2019-08-23] MEDS: MOM 30ML SUSPENSION UDC PO SCH (11:47)
[2019-08-23] MEDS: DOCUSATE SODIUM 100 MG CAP PO SCH ×2 (11:47→20:05)
[2019-08-23] MEDS ORDERED: BUPIVACAINE HCL 0.5% 30 ML VIAL As Ordered ONE (12:03)
[2019-08-23] MEDS ORDERED: BUPIVACAINE LIPOSOME/PF 1.3% 20ML VIAL (13.3MG/ML)(EXPAREL)(C9290 PER1MG) As Ordered ONE (12:03)
[2019-08-23 13:06] LABS: BASO % 0.8 % (0.0-1.0); EOS # 0.1 10^3/uL (0.0-0.5); EOS % 2.1 % (0.0-3.0); HEMATOCRIT 40.7 % (36.0-47.0); HEMOGLOBIN 12.7 g/dl (12.0-15.5); MEAN CORPUSCULAR HEMOGLOBIN 29.3 pg (27.0-33.0); MEAN CORPUSCULAR HGB CONC 31.2 g/dl (32.0-36.5); MEAN CORPUSCULAR VOLUME 93.8 fl (80.0-96.0); MONO # 0.4 10^3/uL (0.0-0.8); MONO % 8.6 % (0.0-5.0); NEUTROPHILS # 2.3 10^3/uL (1.5-8.5); NEUTROPHILS % 47.5 % (36.0-66.0); PLATELET COUNT, AUTOMATED 238 10^3/uL (150-450); RED BLOOD COUNT 4.34 10^6/uL (4.00-5.40); WHITE BLOOD COUNT 4.8 10^3/uL (4.0-10.0)
[2019-08-23] MEDS ORDERED: MORPHINE 2 MG/ML 1ML VIAL (J2270) As Ordered ONE (13:09)
[2019-08-23] MEDS ORDERED: MORPHINE 2 MG/ML 1ML VIAL (J2270) IV ONE ×2 (13:15→13:30)
[2019-08-23] MEDS ORDERED: LIDOCAINE 1% SDV INJ 30 ML VIAL SC ONE (13:30)
[2019-08-23] MEDS ORDERED: MIDAZOLAM INJ 2 MG/2 ML VIAL (J2250) IV ONE (13:30)
[2019-08-23 13:33] LABS: BLOOD UREA NITROGEN 11 MG/DL (7-18); CALCIUM LEVEL 9.3 MG/DL (8.5-10.1); CARBON DIOXIDE LEVEL 25 MEQ/L (21-32); CHLORIDE LEVEL 111 MEQ/L (98-107); CREATININE FOR GFR 0.72 MG/DL (0.55-1.30); GLOMERULAR FILTRATION RATE > 60.0 (>51); GLUCOSE, FASTING 83 MG/DL (70-100); POTASSIUM SERUM 3.5 MEQ/L (3.5-5.1); SODIUM LEVEL 139 MEQ/L (136-145)
--- NOTE | 2019-08-23 13:37 | RO ---
DATE OF PROCEDURE: 08/23/2019 PREPROCEDURE DIAGNOSIS: Right pleural effusion. POSTPROCEDURE DIAGNOSIS: Right pleural effusion. SURGEON: Seng Harman MD PROCEDURE: Insertion of right posterolateral chest tube. ANESTHESIA: DESCRIPTION OF PROCEDURE: Under satisfactory moderate sedation achieved with an additional 2 mg of Versed, the patient was prepped and draped in the usual sterile fashion. The skin, subcutaneous tissue, and pleura was infiltrated over the approximate 7th rib. Incision was made and a tunnel created in the chest without difficulty. The tunnel was dilated and a chest tube placed without difficulty. The chest tube was secured to the chest wall with #2 Tevdek suture and connected to the Pleur-evac after collecting specimens. Specimen was sent for hematology, cytology, chemistry, and bacteriology.
[2019-08-23] MEDS: PANTOPRAZOLE 40MG TAB (PROTONIX) PO SCH (13:38)
--- NOTE | 2019-08-23 13:44 | REP ---
Portable chest x-ray: Single view. History: Pericardial/chest tube insertion. Comparison chest x-ray: May 05, 2018. Comparison CT study June 29, 2019. Findings: Pericardial drainage catheter is noted in place overlying the anterior mediastinum terminating at the level of the transverse aorta. There is a right chest tube noted in place. The right pleural effusion is significantly improved. Heart size is improved post pericardiocentesis. There is a rounded fullness in the right hilus and there is evidence of lobar collapse in the right upper lobe. There is a small quantity of apical pleural air and there is some apical pleural thickening. There is a rounded opacity in the aerated right lung as well. Right hemidiaphragm is elevated. Some plate-like atelectasis is seen in the left base. Impression: Status post right chest tube and pericardial catheter placement. Lobar collapse right upper lobe possible perihilar mass. Small right apical pneumothorax and right apical pleural thickening visible. Electronically Signed by Villa Quijano MD 08/23/2019 02:34 P
[2019-08-23 13:59] LABS: LDH LACTATE DEHYDROGENASE 188 U/L (84-246)
[2019-08-23] MEDS ORDERED: LIDOCAINE 1% MDV 20ML VIAL SC ONE (14:00)
--- NOTE | 2019-08-23 14:07 | RO ---
DATE OF PROCEDURE: 08/23/2019 PREPROCEDURE DIAGNOSIS: Pericardial effusion. POSTPROCEDURE DIAGNOSIS: Pericardial effusion. SURGEON: Dr. Seng Harman AIRPLANE REFUELER: ANESTHESIA: PROCEDURE: Tube pericardiostomy, pericardiocentesis under echocardiographic control and moderate sedation. FINDINGS: Pericardium was drained of 400 mL of serous fluid. It is notable that once collecting the specimen that it clotted. DESCRIPTION OF PROCEDURE: Under satisfactory moderate sedation achieved with eventually 6 mg of Versed, the patient was prepped and draped in the usual sterile fashion. Blood pressure, heart rate and pulse oximetry were continually monitored. Best echocardiographic window was noted subxyphoid. THe patient was prepped and draped in the usual sterile fashion and sterile echo probe was placed at the xyphoid. Tract and window were ascertained, and the site was infiltrated with 1% Lidocaine. An exploring needle was then placed under echocardiographic control until clear fluid was obtained. The wire was placed. Wire tract was incised, dilated, and a pericardiostomy tube was placed over the guidewire. This was continually monitored by echocardiography. The fluid was removed into a Schuler bag with the fluid being observed with echocardiography which markedly diminish. The tube was secured to the chest wall with three 2-0 silk sutures. The patient tolerated the procedure well. Chest x-ray is pending. [facility]
[2019-08-23 14:34] LABS: SOURCE, BODY FLUID PERICARDIAL
[2019-08-23 14:35] LABS: APPEARANCE, BODY FLUID CLEAR (CLEAR)
[2019-08-23 14:37] LABS: APPEARANCE, BODY FLUID HAZY (CLEAR); PLEURAL FL COLOR YELLOW (COLORLESS); SOURCE, BODY FLUID PLEURAL
[2019-08-23 14:41] LABS: PH BODY FLUID 7.614 UNITS (NOT ESTABLISHED); PH BODY FLUID 7.789 UNITS (NOT ESTABLISHED); SOURCE, BODY FLUID pH PERICARDIAL; SOURCE, BODY FLUID pH PLEURAL
[2019-08-23 14:53] LABS: AMYLASE, BODY FLUID 70 U/L (NOT ESTABLISHED); CHOLESTEROL, BODY FLUID 114 MG/DL (NOT ESTABLISHED); LDH, BODY FLUID 101 U/L (NOT ESTABLISHED); SOURCE, BODY FLUID ALBUMIN PLEURAL; SOURCE, BODY FLUID AMYLASE PLEURAL; SOURCE, BODY FLUID CHOL PLEURAL; SOURCE, BODY FLUID GLUCOSE PLEURAL; SOURCE, BODY FLUID LDH PLEURAL; SOURCE, BODY FLUID TOT PROTEIN PLEURAL; SOURCE, BODY FLUID TRIG PLEURAL; TOTAL PROTEIN, BODY FLUID 4.8 G/DL (NOT ESTABLISHED); TRIGLYCERIDE, BODY FLUID 37 MG/DL (NOT ESTABLISHED)
[2019-08-23 14:54] LABS: LDH, BODY FLUID 169 U/L (NOT ESTABLISHED); SOURCE, BODY FLUID ALBUMIN PERICARDIAL; SOURCE, BODY FLUID GLUCOSE PERICARDIAL; SOURCE, BODY FLUID LDH PERICARDIAL; SOURCE, BODY FLUID TOT PROTEIN PERICARDIAL; TOTAL PROTEIN, BODY FLUID 5.1 G/DL (NOT ESTABLISHED)
--- NOTE | 2019-08-23 16:48 | ECHO ---
DATE OF PROCEDURE: 08/23/2019 REFERRING PHYSICIAN: Seng Harman MD INDICATION: Pericardial effusion. FINDINGS: This is a limited echocardiogram performed in the setting of pericardiocentesis. There are limited preprocedural views that all indicate large pericardial effusion. Visualization of the remaining structure was somewhat limited but it appears that left ventricular systolic function is normal. The images obtained after the pericardiocentesis are of very limited quality. They reveal that there is resolution of pericardial effusion and grossly preserved left and right ventricular systolic function. Mitral, tricuspid and aortic valves appear grossly normal. No Doppler imaging was performed. CONCLUSION Limited study performed as an assistance and guidance during pericardiocentesis. Preprocedure all images reveal large pericardial effusion with its resolution postprocedure. [facility]
[2019-08-23] MEDS ORDERED: NS 500 ML IV ONE (17:00)
[2019-08-23] MEDS ORDERED: PILL CUTTER 1 EACH XX PRN (17:00)
[2019-08-23 18:00] LABS: SPEC. GRAVITY BODY FLUIDS 1.031 (NOT ESTABLISHED)
[2019-08-23] MEDS: HYDROmorphone 2 MG TAB PO PRN (18:29)
[2019-08-23] MEDS: HEPARIN SOD (PORCINE) 5000 UNITS/ML VIAL (J1644 PER 1000UNITS) SC SCH (20:06)
[2019-08-23] MEDS: LEVALBUTEROL 1.25 MG/0.5 ML CONCENTRATE NEB NEB SCH (20:29)
[2019-08-24] VITALS (8 sets, daily range): BP systolic 98–121; BP diastolic 56–69
[2019-08-24] MEDS: HYDROmorphone 2 MG TAB PO PRN ×4 (00:52→19:47)
[2019-08-24] MEDS: KCL 20MEQ IN D5/NS 1000ML 1,000 ML IV SCH (00:53)
[2019-08-24] MEDS: LEVALBUTEROL 1.25 MG/0.5 ML CONCENTRATE NEB NEB SCH ×5 (01:17→20:35)
[2019-08-24] MEDS: KETOROLAC 30 MG/ML VIAL (J1885) IV SCH ×4 (03:21→19:47)
[2019-08-24 04:58] LABS: BASO % 0.2 % (0.0-1.0); EOS % 0.1 % (0.0-3.0); HEMATOCRIT 38.2 % (36.0-47.0); HEMOGLOBIN 11.8 g/dl (12.0-15.5); LYMPH # 1.2 10^3/uL (1.5-5.0); LYMPH % 14.7 % (24.0-44.0); MEAN CORPUSCULAR HEMOGLOBIN 28.9 pg (27.0-33.0); MEAN CORPUSCULAR HGB CONC 30.9 g/dl (32.0-36.5); MEAN CORPUSCULAR VOLUME 93.4 fl (80.0-96.0); MONO # 0.8 10^3/uL (0.0-0.8); NEUTROPHILS # 6.4 10^3/uL (1.5-8.5); NEUTROPHILS % 75.8 % (36.0-66.0); PLATELET COUNT, AUTOMATED 282 10^3/uL (150-450); RED BLOOD COUNT 4.09 10^6/uL (4.00-5.40); WHITE BLOOD COUNT 8.5 10^3/uL (4.0-10.0)
[2019-08-24 05:18] LABS: BLOOD UREA NITROGEN 14 MG/DL (7-18); CALCIUM LEVEL 8.2 MG/DL (8.5-10.1); CARBON DIOXIDE LEVEL 22 MEQ/L (21-32); CHLORIDE LEVEL 113 MEQ/L (98-107); CREATININE FOR GFR 0.96 MG/DL (0.55-1.30); GLOMERULAR FILTRATION RATE > 60.0 (>51); GLUCOSE, FASTING 154 MG/DL (70-100); POTASSIUM SERUM 4.2 MEQ/L (3.5-5.1); SODIUM LEVEL 143 MEQ/L (136-145)
[2019-08-24] MEDS: LEVOTHYROXINE 75MCG TABLET (0.075MG) PO SCH (06:01)
[2019-08-24 06:45] LABS: ABG BASE EXCESS -4.9 (-2.0-2.0); ABG HCO3 19.2 MEQ/L (22.0-26.0); ABG O2 SATURATION 98.6 % (95.0-99.0); ABG PARTIAL PRESSURE CO2 32.7 mmHg (35.0-45.0); ABG PARTIAL PRESSURE O2 114.5 mmHg (75.0-100.0); ABG STANDARD HCO3 20.4 MEQ/L (22.0-26.0); ABG TOTAL CO2 20.2 MEQ/L (22.0-29.0); ABG pH (ARTERIAL) 7.387 UNITS (7.350-7.450)
[2019-08-24 07:01] LABS: CK-MB VALUE MASS 1.1 NG/ML (<3.6); CPK CREATINE PHOSPHOKINASE 130 U/L (26-192); MAGNESIUM LEVEL 1.7 MG/DL (1.8-2.4); MB/CK RELATIVE INDEX 0.85 (< OR =4); TROPONIN I < 0.02 NG/ML (< 0.10)
[2019-08-24] MEDS: MOM 30ML SUSPENSION UDC PO SCH ×2 (08:43→08:46)
--- NOTE | 2019-08-24 08:43 | REP ---
PA and lateral chest: Comparison is 08/23/2019. The right thoracotomy tube and pericardial drainage catheter are unchanged. There is a large right hydropneumothorax. Possible right perihilar mass versus right upper lobe collapse. Versus combination. Left lung is clear. Cardiac size cannot be determined, right cardiac margin is obscured. The the patient is rotated. Electronically Signed by Ciro Lawrence MD 08/24/2019 08:34 A
[2019-08-24] MEDS: HEPARIN SOD (PORCINE) 5000 UNITS/ML VIAL (J1644 PER 1000UNITS) SC SCH ×3 (08:45→19:48)
[2019-08-24] MEDS: DOCUSATE SODIUM 100 MG CAP PO SCH ×2 (08:45→19:46)
[2019-08-24] MEDS: PANTOPRAZOLE 40MG TAB (PROTONIX) PO SCH (08:45)
[2019-08-24] MEDS ORDERED: MAG SULF 1GM/100ML (MAG RUN) 1 GM in IV 1 EA IV ONE (09:00)
--- NOTE | 2019-08-24 10:50 | ECGEPIP ---
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
[2019-08-24 12:42] LABS: ALT/SGPT 15 U/L (12-78); BILIRUBIN,DIRECT 0.1 MG/DL (0.0-0.2); BILIRUBIN,TOTAL 0.4 MG/DL (0.2-1.0); TOTAL PROTEIN 6.1 GM/DL (6.4-8.2)
--- NOTE | 2019-08-24 13:42 | IPN ---
DATE OF SERVICE: 08/24/2019 Ms. Elder was seen and examined this morning during bedside rounds in the intensive care unit (ICU). She states that her discomfort has improved in the center of her chest, but now it is more radiating towards the right side. She does admit to having some emesis last night. She did admit that it is secondary to nausea and no more episodes overnight. Early this morning though, she did have some slight changes on telemetry that shows an ST elevation. EKG was done, which did not show significant ST elevations, and cardiac markers were negative for any elevated troponins. Patient states that her discomfort now is more on her right side, but a chest tube was placed and is radiating towards her back. She denies any worsening shortness of breath, palpitation, trouble breathing at this current time. She does have an appetite to eat breakfast and would like to have a double order of chris and grapefruit juice when possible. She is able to ambulate. No weakness. No headaches, no lightheadedness, no dizziness, no fevers or chills. No night sweats. She has no other complaint at this current time. She would like to know when she will have the tubes removed. PHYSICAL EXAM: VITAL SIGNS: Temperature 99.6, pulse 103, respirations 20, blood pressure 112/66 (81), pulse oximetry 97 on room air. General: This is a very pleasant 59-year-old female who does not appear in acute distress, appropriately answering questions and not using any accessory muscles, speaking in complete sentences. HEENT: Atraumatic, normocephalic. Pupils are equal, round, and reactive. Moist mucous membranes. No jugular venous distention (JVD). No lymphadenopathy. Trachea is midline. Cardiovascular: She has a tachycardic rate but regular rhythm with a 2/6 systolic murmur, loudest at the second intercostal space on the right, not radiating to the carotids just to the apex. No audible rubs or gallops are noted. Lungs: Clear to auscultate in the upper lobes. Improved aeration in the right. Dullness to percussion on the right lower base up to mid back. Clear to auscultate on the left lung, upper and lower lobes. No audible pleural rubs or splashing noted. Chest: There is a pericardial tube in place subxiphoid. Dressing appears clear with no discharge. Slight tenderness to palpation, but no erythema noted. Right chest tube is appreciated on the right lateral axilla line. No discharge, tenderness. Abdomen: Soft, nontender, not distended. Positive bowel sounds in all four quadrants. Lower extremities: No lower edema or calf tenderness noted. Neurologic: No focal deficits noted. Psychiatric: Appropriate. LABORATORIES: Hematology: WBC 8.5, hemoglobin 11.8, hematocrit 38.2, platelets 282. ABG this morning, pH of 7.38, pCO2 32.7, pO2 114.5, base excess -4.9. Chemistry: Sodium 143, potassium 4.2, chloride 113, carbon dioxide 22, anion gap 8, BUN 14, creatinine of 0.96, fasting glucose 154, calcium 8.2, magnesium 1.7. Troponin times one 0.02. Total creatine kinase is 130. Serum LDH is 188. Pleural WBCs 725, mononuclear 99.3, polymorphonuclear 0.7, glucose 86, total protein 4.8, albumin 2.9, LDH 101. Pericardial fluid: pH is 7.789, glucose is 83, total protein is 5.1, albumin is 2.2, LDH is 169. PATHOLOGY: Cytology of the pleural fluid, currently pending. Cytology of the pericardial fluid is currently pending. Cell block of the pleural fluid is lymphocytic effusion, predominantly lymphocytes and scattered mesothelial cells and blood elements. If fluid re-accumulates and suspicion of neoplastic process exists, please submit for repeat testing. Imaging this morning shows left lung is clear. Cardiac size cannot be determined, and the right cardiac margin is obscured. There is a very large right hydropneumothorax, a right perihilar mass versus a right upper lobe collapse, versus combination of both. ASSESSMENT AND PLAN: This is a very pleasant 59-year-old female with a pertinent past medical history of adenocarcinoma of the lung, who was admitted on 08/23/2019 for a pericardial tube placement and a right chest tube thoracostomy. 1. Pericardial effusion. Status post pericardiocentesis. Patient had an adequate amount of fluid removed at bedside. She had a total of 495 mL removed. Currently, cytology of this pleural effusion is pending. The cell block is currently pending. We are unsure if this is probably secondary to malignancy or it is secondary to her history radiation that she had to the right upper lobe because of her history of adenocarcinoma of the lung. Our hope is this is secondary to radiation, but cell blocks are currently pending, so we will followup with this. At this current time, because her output has dropped since this morning, we would discontinue the pericardial tube this morning and continue with pain management. 2. Right pleural effusion, status post thoracostomy. Had a total of 2530 mL out in the last 24 hours, not including today. We will continue with the chest tube on suction for another 24 hours. Pending tomorrow and clinical picture, will consider discontinuing the chest tube tomorrow. At the current time, she is currently tolerating it very well. We are unsure if the pericardial effusion will return because of her history of her radiation secondary to her adenocarcinoma. If, the likely chance it does re-accumulate and the patient is having symptoms, we can consider her for a PleurX catheter. Will continue, at this current time, with pain management and bowel care, which is as ordered. 3. Abnormal EKG. There were slight ST changes on telemetry this morning. Cardiac markers times one was negative for any elevated troponins. Magnesium was slightly low at 1.7. We will replenish magnesium run, and because the patient had the pericardial tube in place, I am unsure if this is contributing to the EKG changes. Because we removed it today, we will monitor her on telemetry for another 24 hours, and monitor for any chest pain results. Patient is agreeable to this plan. DISPOSITION: Possible discharge in 24-48 hours pending clinical improvement and removal of the chest tube. [facility]
[2019-08-24] MEDS ORDERED: SLF 3 ML SYR IV PRN (14:15)
[2019-08-24] MEDS: SLF 3 ML SYR IV SCH (19:48)
[2019-08-25] MEDS: LEVALBUTEROL 1.25 MG/0.5 ML CONCENTRATE NEB NEB SCH ×4 (01:56→21:03)
[2019-08-25] MEDS: KETOROLAC 30 MG/ML VIAL (J1885) IV SCH ×4 (02:00→20:32)
[2019-08-25 04:00] VITALS: BP 104/60
[2019-08-25 05:28] LABS: BASO % 0.5 % (0.0-1.0); EOS # 0.1 10^3/uL (0.0-0.5); EOS % 0.9 % (0.0-3.0); HEMATOCRIT 31.8 % (36.0-47.0); HEMOGLOBIN 10.5 g/dl (12.0-15.5); LYMPH # 1.1 10^3/uL (1.5-5.0); MEAN CORPUSCULAR HEMOGLOBIN 30.7 pg (27.0-33.0); MONO # 0.6 10^3/uL (0.0-0.8); MONO % 9.7 % (0.0-5.0); NEUTROPHILS # 4.5 10^3/uL (1.5-8.5); NEUTROPHILS % 71.4 % (36.0-66.0); PLATELET COUNT, AUTOMATED 176 10^3/uL (150-450); RED BLOOD COUNT 3.42 10^6/uL (4.00-5.40); WHITE BLOOD COUNT 6.4 10^3/uL (4.0-10.0)
[2019-08-25] MEDS: HYDROmorphone 2 MG TAB PO PRN ×2 (05:34→15:27)
[2019-08-25] MEDS: SLF 3 ML SYR IV SCH ×3 (06:00→20:32)
[2019-08-25 06:01] LABS: BLOOD UREA NITROGEN 17 MG/DL (7-18); CALCIUM LEVEL 7.9 MG/DL (8.5-10.1); CARBON DIOXIDE LEVEL 24 MEQ/L (21-32); CHLORIDE LEVEL 112 MEQ/L (98-107); GLOMERULAR FILTRATION RATE > 60.0 (>51); GLUCOSE, FASTING 132 MG/DL (70-100); POTASSIUM SERUM 4.2 MEQ/L (3.5-5.1); SODIUM LEVEL 141 MEQ/L (136-145)
[2019-08-25 08:00] VITALS: BP 98/54
[2019-08-25] MEDS: MOM 30ML SUSPENSION UDC PO SCH (09:03)
[2019-08-25] MEDS: PANTOPRAZOLE 40MG TAB (PROTONIX) PO SCH (09:04)
[2019-08-25] MEDS: DOCUSATE SODIUM 100 MG CAP PO SCH ×2 (09:04→20:31)
[2019-08-25] MEDS: LEVOTHYROXINE 75MCG TABLET (0.075MG) PO SCH (09:04)
[2019-08-25] MEDS: HEPARIN SOD (PORCINE) 5000 UNITS/ML VIAL (J1644 PER 1000UNITS) SC SCH ×2 (09:05→20:31)
[2019-08-25] MEDS ORDERED: ALTEPLASE 2 MG/2 ML VIAL (J2997 PER 1MG) XX ONE (09:30)
[2019-08-25 12:00] VITALS: BP 94/55
--- NOTE | 2019-08-25 13:52 | IPN ---
DATE: 08/25/2019 My attending on this case is Dr. Seng Harman. Ms. Elder was seen and examined this morning during bedside rounds. She states she is feeling relatively well. She has noticed that her right shoulder discomfort has improved when she had a K-pad placed, but now her left shoulder has a lot of discomfort, and she just wants to move around. She is eating breakfast really well. Her has brought her food from home that she is tolerating relatively well as well. She really has no complaints today. She just does not like the chest tube in her right chest, has a little bit of discomfort but she has no trouble breathing, shortness of breath, or any chest pain. She does admit to having some constipation, but she is able to urinate with no problem. No overnight events were reported by nursing or by telemetry. PHYSICAL EXAM: Vital Signs: Temperature 97.7, pulse 97, respirations 16, blood pressure 98/58 (69), pulse oximetry 95% on room air. Intake/Output: Intake 2170, output 830, balance positive 1340 mL. Chest tube drainage 680 mL. Weight 44.9 kg, up from 44.2 kg yesterday. General: This is a very pleasant 59-year-old female who does not appear in acute distress, appropriately answering questions, is not using any accessory muscles, speaking in complete sentences. HEENT: Atraumatic, normocephalic. Pupils equal, round, and reactive. Moist mucous membranes. No jugular venous distention (JVD). No lymphadenopathy. Trachea is midline. Cardiovascular: Regular rate and rhythm. 2/6 systolic murmur, loudest at the second intercostal space on the right, nonradiating. No audible rubs or gallops noted. Lungs: Improved aeration on the right. Clear to auscultate bilaterally up to mid lung on the right. Dullness to percussion on the right lung base up to mid back. Clear to auscultate at the left lung base. No audible pleural rubs or splashing noted. Chest: Right chest tube is appreciated in the right lateral axillary line. No discharge, no tenderness or erythema noted. Abdomen: Soft, nontender, nondistended. Extremities: No lower extremity edema, calf tenderness. There is limited range of motion in the right upper shoulder. Neurologic: No focal deficits noted. Psychiatric: Appropriate. LABORATORY: Hematology: WBC 6.4, hemoglobin 10.5, hematocrit 31.8, platelets 176. Chemistry: Sodium 141, potassium 4.2, chloride 112, carbon dioxide 24, anion gap 5, BUN 17, creatinine 0.80, fasting glucose 132, calcium 7.9. Cell block pathology for the pleural fluid. Lymphocytic effusion. Predominantly lymphocytes and scattered mesothelial cells and blood elements. IMAGING: This morning, chest x-ray shows in the right lung base two pleural fluid lines with significant consolidation of the right lung, unsure if secondary to the pleural effusion. Left lung appears clear, good vasculature with no bony breakdown noted. No pneumothorax noted. Official read currently pending. ASSESSMENT AND PLAN: This is a very pleasant 59-year-old female with a pertinent past medical history of adenocarcinoma of the lung who was admitted on 08/23/2019 for pericardial tube placement and right chest tube thoracostomy. 1. Pericardial effusion, status post pericardiocentesis yesterday, 08/24/2019. Cytology of the pericardial fluid is currently pending. We do have the belief this is pericardial effusion secondary to her radiation. Will followup once pathology reports are back. 2. Right pleural effusion, status post thoracostomy. She had a total of 680 mL in the last 24 hours. Based on chest x-ray and the air fluid line, we do believe that she possibly has some clotting within the lung, and she has probably another 500 mL to a liter of fluid that can be removed. We do believe that a chemical decortication such as tPA will be necessary, so we will do that this morning and followup tomorrow. Cytology of the pleural fluid was negative for malignancy. 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 If it does re-accumulate, and the patient is having symptoms, we can consider a permanent catheter if needed. But at the current time, we will continue with a temporary chest tube as planned. Continue with pain management and bowel care as prescribed.
--- NOTE | 2019-08-25 14:29 | REP ---
CHEST, TWO VIEWS: Two views of the chest are performed and compared to prior study of 08/24/2019. Right chest tube remains in place. Air/fluid collection in the right hemithorax appears essentially unchanged. Left lung appears clear. There are no acute changes. IMPRESSION: Stable exam. Electronically Signed by Ciro Gamboa MD 08/25/2019 06:52 P
[2019-08-25 15:10] VITALS: BP 108/68
[2019-08-25 16:00] VITALS: BP 92/62
[2019-08-25 20:00] VITALS: BP 147/68
[2019-08-26] VITALS: BP 96/62
[2019-08-26] MEDS: KETOROLAC 30 MG/ML VIAL (J1885) IV SCH ×4 (02:00→20:48)
[2019-08-26] MEDS: LEVALBUTEROL 1.25 MG/0.5 ML CONCENTRATE NEB NEB SCH ×4 (02:18→20:40)
[2019-08-26 04:00] VITALS: BP 118/57
[2019-08-26 05:14] LABS: BASO % 0.3 % (0.0-1.0); EOS # 0.1 10^3/uL (0.0-0.5); EOS % 2.2 % (0.0-3.0); HEMATOCRIT 30.4 % (36.0-47.0); HEMOGLOBIN 9.8 g/dl (12.0-15.5); LYMPH # 0.9 10^3/uL (1.5-5.0); LYMPH % 15.1 % (24.0-44.0); MEAN CORPUSCULAR HEMOGLOBIN 29.6 pg (27.0-33.0); MEAN CORPUSCULAR HGB CONC 32.2 g/dl (32.0-36.5); MEAN CORPUSCULAR VOLUME 91.8 fl (80.0-96.0); MONO # 0.6 10^3/uL (0.0-0.8); MONO % 10.1 % (0.0-5.0); NEUTROPHILS # 4.2 10^3/uL (1.5-8.5); PLATELET COUNT, AUTOMATED 158 10^3/uL (150-450); RED BLOOD COUNT 3.31 10^6/uL (4.00-5.40); WHITE BLOOD COUNT 5.8 10^3/uL (4.0-10.0)
[2019-08-26] MEDS: SLF 3 ML SYR IV SCH ×3 (05:23→20:48)
[2019-08-26 05:32] LABS: BLOOD UREA NITROGEN 17 MG/DL (7-18); CALCIUM LEVEL 8.4 MG/DL (8.5-10.1); CARBON DIOXIDE LEVEL 25 MEQ/L (21-32); CHLORIDE LEVEL 108 MEQ/L (98-107); CREATININE FOR GFR 0.62 MG/DL (0.55-1.30); GLOMERULAR FILTRATION RATE > 60.0 (>51); GLUCOSE, FASTING 108 MG/DL (70-100); POTASSIUM SERUM 4.1 MEQ/L (3.5-5.1); SODIUM LEVEL 139 MEQ/L (136-145)
[2019-08-26 08:00] VITALS: BP 96/58
[2019-08-26] MEDS: LEVOTHYROXINE 75MCG TABLET (0.075MG) PO SCH (08:20)
[2019-08-26] MEDS: HYDROmorphone 2 MG TAB PO PRN ×2 (08:21→15:59)
[2019-08-26] MEDS: DOCUSATE SODIUM 100 MG CAP PO SCH ×2 (08:21→20:47)
[2019-08-26] MEDS: PANTOPRAZOLE 40MG TAB (PROTONIX) PO SCH (08:22)
[2019-08-26] MEDS: HEPARIN SOD (PORCINE) 5000 UNITS/ML VIAL (J1644 PER 1000UNITS) SC SCH ×2 (08:22→20:47)
[2019-08-26] MEDS: MOM 30ML SUSPENSION UDC PO SCH (08:22)
--- NOTE | 2019-08-26 10:01 | REP ---
CHEST, TWO VIEWS: Two views of the chest are performed and compared to prior study of 08/25/2019. There is again a right chest tube in place. Air-fluid collection on the right is grossly unchanged. There appears to be a small left pleural effusion. Cardiomediastinal silhouette is unchanged. IMPRESSION: No definite change compared to prior study, 08/25/2019. Electronically Signed by Ciro Gamboa MD 08/26/2019 06:29 P
[2019-08-26 12:00] VITALS: BP 110/72
--- NOTE | 2019-08-26 12:14 | REP ---
CT CHEST WITHOUT IV CONTRAST: CT chest performed without IV contrast and compared to prior study of 06/29/2019. There is a right chest tube posteriorly. There is a mild to moderate hydropneumothorax present. There appears to be collapse of the right upper lobe. Central consolidation is seen of the right middle and lower lobes with air bronchograms present. Pleural fluid is seen extending into the fissures. There is a moderate amount of left pleural fluid. There is mild dependent atelectasis or infiltrate in the inferior left lung. There are atherosclerotic calcifications of the thoracic aorta without aneurysm. The heart is not enlarged. There is improvement of the previously noted pericardial effusion with mild residual. IMPRESSION: Mild to moderate right hydropneumothorax. Collapsed right upper lobe. Fluid extends into the fissures on the right. There is central consolidation of right middle and lower lobes with air bronchograms. Right chest tube in place posteriorly. Moderate left pleural effusion with dependent left lower lobe atelectasis/infiltrate. Improved pericardial effusion with mild residual. Electronically Signed by Ciro Gamboa MD 08/26/2019 06:38 P
--- NOTE | 2019-08-26 14:57 | IPN ---
DATE OF SERVICE: 08/26/2019 Ms. Elder is a 59-year-old female who was seen and examined this morning during bedside rounds in the PCU. Overnight she was doing really well after the tPA decortication yesterday. She had a total of 1,005 mL output in the chest tube. She has been ambulating around the halls with no problems. She states that she has an appetite that is close to her baseline and she has been eating a lot of food from home. She does not like a lot of the food here in the hospital but is eating home food really well. She denies any nausea, vomiting or diarrhea. She admits to not having bowel movements since she has been here, but she does not feel constipated. She has not been eating a lot. She denies any fevers, chills or night sweats. No overnight events were reported by nursing. PHYSICAL EXAMINATION: Vital: Temperature 97.9, pulse 108, respirations 16, blood pressure 96/58, MAP 71, pulse oximetry 96% on room air. Intake/Output: Intake total 300 mL, output total 1005 mL, balance of negative 1205 mL. Chest tube drainage 1005 mL. General: This is a very pleasant 59-year-old female who does not appear in acute distress, appropriately answering questions, speaking in complete sentences. HEENT: Atraumatic, normocephalic. Pupils equal, round, and reactive. Moist mucous membranes. No jugular venous distention (JVD). No lymphadenopathy. Trachea is midline. Cardiovascular: Tachycardic rate and rhythm. 2/6 systolic murmur, loudest at the second intercostal space, nonradiating. No audible rubs or gallops noted. Lungs: Improved aeration. Clear to auscultate bilaterally in the mid lung on the right. Minimal dullness to percussion on the right lung base up to mid back. Positive bronchophony and positive E-to-A egophony in the right base. Abdomen: Soft, nontender. Extremities: No lower extremity edema or calf tenderness. Neurologic: No focal deficits. Psychiatric: Appropriate. LABORATORY: Hematology: WBC 5.8, hemoglobin 9.8, hematocrit 30.4, platelets 158. Chemistry: Sodium 139, potassium 4.1, chloride 108, carbon dioxide 25, BUN 17, creatinine 0.62, glucose 108. Chest x-ray shows one air fluid line appreciated on the mid lung on the right, improved from yesterday. ASSESSMENT AND PLAN: This is a very pleasant 59-year-old female with a pertinent past medical history of adenocarcinoma of the lung who was admitted on 08/23/2019 for pericardial tube placement and right chest tube thoracostomy. 1. 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 She is status post pericardiocentesis and thoracostomy. She continues to have the chest tube in place at this current time. She is status post tPA yesterday and has an adequate amount of output. 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 We recommend getting a CT of the chest to assess if this is empty airspace versus fluid collection. We will continue with chest x-ray for another 24 hours and then tomorrow we will remove the tube. Possible discharge in 24-48 hours.
[2019-08-26 16:00] VITALS: BP 90/58
[2019-08-26 20:00] VITALS: BP 94/55
[2019-08-27] VITALS (7 sets, daily range): BP systolic 89–115; BP diastolic 52–73
[2019-08-27] MEDS: KETOROLAC 30 MG/ML VIAL (J1885) IV SCH ×4 (01:53→20:10)
[2019-08-27] MEDS: LEVALBUTEROL 1.25 MG/0.5 ML CONCENTRATE NEB NEB SCH ×4 (02:48→20:41)
[2019-08-27 05:34] LABS: BASO % 0.8 % (0.0-1.0); EOS # 0.2 10^3/uL (0.0-0.5); EOS % 4.4 % (0.0-3.0); HEMATOCRIT 29.6 % (36.0-47.0); HEMOGLOBIN 9.5 g/dl (12.0-15.5); LYMPH # 0.9 10^3/uL (1.5-5.0); LYMPH % 22.1 % (24.0-44.0); MEAN CORPUSCULAR HEMOGLOBIN 29.5 pg (27.0-33.0); MEAN CORPUSCULAR HGB CONC 32.1 g/dl (32.0-36.5); MEAN CORPUSCULAR VOLUME 91.9 fl (80.0-96.0); MONO # 0.5 10^3/uL (0.0-0.8); MONO % 12.1 % (0.0-5.0); NEUTROPHILS # 2.3 10^3/uL (1.5-8.5); NEUTROPHILS % 60.1 % (36.0-66.0); PLATELET COUNT, AUTOMATED 178 10^3/uL (150-450); RED BLOOD COUNT 3.22 10^6/uL (4.00-5.40); WHITE BLOOD COUNT 3.9 10^3/uL (4.0-10.0)
[2019-08-27 05:54] LABS: BLOOD UREA NITROGEN 19 MG/DL (7-18); CALCIUM LEVEL 8.4 MG/DL (8.5-10.1); CARBON DIOXIDE LEVEL 27 MEQ/L (21-32); CHLORIDE LEVEL 112 MEQ/L (98-107); CREATININE FOR GFR 0.64 MG/DL (0.55-1.30); GLOMERULAR FILTRATION RATE > 60.0 (>51); GLUCOSE, FASTING 91 MG/DL (70-100); POTASSIUM SERUM 4.2 MEQ/L (3.5-5.1); SODIUM LEVEL 143 MEQ/L (136-145)
[2019-08-27] MEDS: SLF 3 ML SYR IV SCH ×3 (06:04→20:10)
[2019-08-27] MEDS: MOM 30ML SUSPENSION UDC PO SCH (07:24)
[2019-08-27] MEDS: PANTOPRAZOLE 40MG TAB (PROTONIX) PO SCH (07:24)
[2019-08-27] MEDS: LEVOTHYROXINE 75MCG TABLET (0.075MG) PO SCH (07:24)
[2019-08-27] MEDS: DOCUSATE SODIUM 100 MG CAP PO SCH ×2 (08:15→20:10)
[2019-08-27] MEDS: HEPARIN SOD (PORCINE) 5000 UNITS/ML VIAL (J1644 PER 1000UNITS) SC SCH ×2 (08:15→20:09)
--- NOTE | 2019-08-27 08:30 | REP ---
Chest x-ray: Two views. History: Pericardial/pleural effusions. Comparison chest x-ray: August 26, 2019. Findings: A right chest tube remains in place posteriorly. There is evidence of loculated hydropneumothorax on the right with several air-fluid levels in the right pleural space anteriorly and posteriorly. There is blunting of the posterior pleural angles on both sides and the left lateral pleural angle is slightly blunted. Left lung is otherwise clear. Impression: Volume loss in the right chest. Loculated hydropneumothorax on the right again noted. No significant change. Electronically Signed by Villa Quijano MD 08/27/2019 09:35 A
--- NOTE | 2019-08-27 17:16 | IPN ---
DATE: 08/27/2019 Ms. Elder was seen and examined this morning during bedside rounds. She states that she is doing really well this morning. She has no complaints. She went down for a CT yesterday with no problems as well. Overnight she had an output of 100 mL in the chest tube drainage. She would like to know when she can go home but understands she cannot go home until the chest tube is removed today and then she will go home tomorrow. She has no complaints today. No overnight events reported by nursing. No telemetry events were reported as well. PHYSICAL EXAMINATION: Vital Signs: Temperature 97.6, pulse 100, respirations 18, blood pressure 96/62 (73), pulse oximetry 95% on room air. General: This is a very pleasant 59-year-old female who does not appear in acute distress, sitting in bed, answering questions appropriately in complete sentences. HEENT: Atraumatic, normocephalic. Pupils equal, round, and reactive. Moist mucous membranes. No jugular venous distention (JVD). No lymphadenopathy. Trachea is midline. Cardiovascular: Tachycardic rate and rhythm with a 2/6 systolic murmur loudest at the second intercostal space, nonradiating. No audible rubs or gallops noted. Lungs: Clear to auscultate in the upper lobes bilaterally. Nonexistent breath sounds in the right lower base with persistent dullness to percussion at baseline, positive bronchophony and positive E to A egophony in the right base as well. Abdomen: Soft, nontender. Extremities: No lower extremity edema, calf tenderness. Neurologic: No focal deficits. Psychiatric: Appropriate. LABORATORY: Hematology: WBC 3.9, hemoglobin 9.5, hematocrit 29.6, platelets 178. Chemistries: Sodium 143, potassium 4.2, chloride 112, carbon dioxide 27, anion gap 4, BUN 19, creatinine 0.64, fasting glucose 92, calcium 8.4. IMAGING: CT of the chest from 08/26/2019 shows mild to moderate right hydropneumothorax, collapsed right upper lobe, Fluid extends to the fissure on the right. There is central consolidation on the right middle and lower lobes with air bronchogram. Right chest tube in place posteriorly. Moderate left pleural effusion with dependent left lower lobe atelectasis/infiltrate. Improved pericardial effusion with mild residual. Chest x-ray this morning done on 08/27/2019: Volume loss in the right chest, loculated hydropneumothorax on the right again noted. No significant changes. ASSESSMENT AND PLAN: This is a very pleasant 59-year-old female with a pertinent past medical history of adenocarcinoma of the lung who was admitted on 08/23/2019 for pericardial tube placement and right tube thoracostomy. 1. 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 She is status post pericardiocentesis and thoracostomy. Will remove the chest tube this morning. Will apply the dressing as well. We will continue with bowel care and pain management as prescribed. If no overnight events today, she can be discharged tomorrow morning first thing. DISPOSITION: Possible discharge in the morning, followup with Dr. Harman in 1 week. Remove dressing in the morning prior to discharge.
[2019-08-28] MEDS: LEVALBUTEROL 1.25 MG/0.5 ML CONCENTRATE NEB NEB SCH ×2 (01:21→07:13)
[2019-08-28] MEDS: KETOROLAC 30 MG/ML VIAL (J1885) IV SCH (02:14)
[2019-08-28 04:00] VITALS: BP 99/58
[2019-08-28] MEDS: SLF 3 ML SYR IV SCH (05:48)
[2019-08-28 06:32] LABS: BASO % 0.6 % (0.0-1.0); EOS # 0.2 10^3/uL (0.0-0.5); EOS % 4.8 % (0.0-3.0); HEMATOCRIT 27.5 % (36.0-47.0); HEMOGLOBIN 8.9 g/dl (12.0-15.5); LYMPH # 0.8 10^3/uL (1.5-5.0); LYMPH % 21.8 % (24.0-44.0); MEAN CORPUSCULAR HEMOGLOBIN 29.1 pg (27.0-33.0); MEAN CORPUSCULAR HGB CONC 32.4 g/dl (32.0-36.5); MEAN CORPUSCULAR VOLUME 89.9 fl (80.0-96.0); MONO # 0.4 10^3/uL (0.0-0.8); MONO % 11.3 % (0.0-5.0); NEUTROPHILS # 2.2 10^3/uL (1.5-8.5); NEUTROPHILS % 61.5 % (36.0-66.0); PLATELET COUNT, AUTOMATED 211 10^3/uL (150-450); RED BLOOD COUNT 3.06 10^6/uL (4.00-5.40); WHITE BLOOD COUNT 3.5 10^3/uL (4.0-10.0)
[2019-08-28 07:02] LABS: BLOOD UREA NITROGEN 17 MG/DL (7-18); CALCIUM LEVEL 8.6 MG/DL (8.5-10.1); CARBON DIOXIDE LEVEL 25 MEQ/L (21-32); CHLORIDE LEVEL 110 MEQ/L (98-107); CREATININE FOR GFR 0.63 MG/DL (0.55-1.30); GLOMERULAR FILTRATION RATE > 60.0 (>51); GLUCOSE, FASTING 89 MG/DL (70-100); POTASSIUM SERUM 3.9 MEQ/L (3.5-5.1); SODIUM LEVEL 141 MEQ/L (136-145)
[2019-08-28 08:00] VITALS: BP 88/64
--- NOTE | 2019-08-28 08:32 | REP ---
Chest x-ray: Two views. History: Pleural and pericardial effusion. Comparison study: August 27, 2019. Findings: The previously noted right chest tube has been removed. Air fluid levels persist in the right pleural space and contrast with loculated hydropneumothorax. There is a little less air in the largest component. Otherwise unchanged. There is slight blunting of the left lateral pleural angle. This is unchanged. Left lung remains otherwise clear. Electronically Signed by Villa Quijano MD 08/28/2019 08:24 A
[2019-08-28] MEDS: LEVOTHYROXINE 75MCG TABLET (0.075MG) PO SCH (08:49)
[2019-08-28] MEDS: MOM 30ML SUSPENSION UDC PO SCH (08:56)
[2019-08-28] MEDS: HEPARIN SOD (PORCINE) 5000 UNITS/ML VIAL (J1644 PER 1000UNITS) SC SCH (08:56)
[2019-08-28] MEDS: DOCUSATE SODIUM 100 MG CAP PO SCH (08:56)
[2019-08-28] MEDS: PANTOPRAZOLE 40MG TAB (PROTONIX) PO SCH (08:56)
--- NOTE | 2019-08-28 22:03 | DSES ---
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 PROCEDURES PERFORMED DURING STAY: Pericardiocentesis and chest tube placement on 08/23/[address] Harman at bedside. CONSULTANTS: None. HOSPITAL COURSE: Ms. Elder was admitted on August 23 for pericardial effusion and pleural effusion. Both of these procedures were done at bedside in the intensive care unit (ICU). For the anterior chest pericardial, she had relatively 495 mL of fluid drained, and for the right pleural effusion she had relatively 4600 mL of fluid drained. The fluid from both the pericardial and the pleural effusion were negative for malignancy or bacteria. We believe based on the patient's history of radiation for her adenocarcinoma in the past, this is radiation serositis. She had serial chest x-rays that were done while she was admitted that showed improvement of the lung wall but a persistent hydropneumothorax with a collapsed right lung. She was saturating appropriately throughout the admission. She had no complications. She remained on room air, and pain was tolerated with oral medications. On the day of discharge, patient was stable to go home and was advised that she had followup with Dr. Harman in 1 week with a chest x-ray. She was agreeable to everything stated to her today and had no complaints. PHYSICAL EXAMINATION: VITAL SIGNS: Temperature 98.2, heart rate 89, respirations 16, blood pressure 99/58 (72), 97% on room air. Intake and output: Intake 1320, output 100 mL with a +1220. GENERAL: Very pleasant 59-year-old female who does not appear in acute distress, sitting in the bed, appropriately answering questions in complete sentences. No respiratory muscle use. HEENT: Atraumatic, normocephalic. Pupils equal, round, and reactive. Moist mucous membranes. No oral thrush. No jugular venous distention (JVD). No lymphadenopathy. CARDIOVASCULAR: Normal rate and rhythm. A 2/6 systolic murmur, loudest at the second intercostal space but nonradiating. No audible rubs or gallops noted. LUNGS: Clear to auscultate bilaterally in the upper lobes. Breath sounds in the bases slight more diminished in the right but have improved. She continues to have persistent dullness to percussion at the right lower base. There is no bronchophony appreciated at this time. There is positive E to A egophony at the right base, though. ABDOMEN: Soft, nontender. EXTREMITIES: No lower extremity edema or calf tenderness. NEUROLOGIC: No focal deficits. PSYCHIATRIC: Appropriate. IMAGING: CT of the chest from did show mild to moderate right hydropneumothorax, collapsed right upper lobe, fluid extending to the fissure on the right. There was a central consolidation on the right middle and lower lobes with air bronchograms. The right chest tube was in posteriorly with a moderate left pleural effusion and left lower lobe atelectasis/infiltrate. Improved pericardial effusion with mild residual. DISPOSITION: Discharge home. DISCHARGE CONDITION: Improved and stable. PROGNOSIS: Fair. FOLLOWUP: With Dr. Harman in 1 week with chest x-ray. ACTIVITY: As prior to admission. DIET: As prior to admission. TIME SPENT ON DISCHARGE: 35 minutes.
== END 2019-08-28 11:02 | disposition home or self-care (01) | DRG 142 ==
LOC: M ICU 11:16 → M PCU 08-24 13:16
PROVIDERS: ADMIT Thoracic Surgery (Cardiothoracic Vascular Surgery); ATTEND Thoracic Surgery (Cardiothoracic Vascular Surgery)
PROC: 0W9930Z Drainage of Right Pleural Cavity with Drainage Device, Percutaneous Approach (ICD-10-PCS; principal; 2019-08-23)
PROC: 0W9D30Z Drainage of Pericardial Cavity with Drainage Device, Percutaneous Approach (ICD-10-PCS; 2019-08-23)
DX: J70.1 Chronic and other pulmonary manifestations due to radiation (principal); J90 Pleural effusion, not elsewhere classified; E46 Unspecified protein-calorie malnutrition; I31.3 Pericardial effusion (noninflammatory); C34.11 Malignant neoplasm of upper lobe, right bronchus or lung; J44.9 Chronic obstructive pulmonary disease, unspecified; Z92.3 Personal history of irradiation; Z92.21 Personal history of antineoplastic chemotherapy; Z87.891 Personal history of nicotine dependence; Z79.899 Other long term (current) drug therapy; E03.9 Hypothyroidism, unspecified; I35.1 Nonrheumatic aortic (valve) insufficiency; K21.9 Gastro-esophageal reflux disease without esophagitis

== ENCOUNTER 2019-09-05 14:06 | Emergency (ER) | payer OTHER ==
[~2019-09-05] VITALS: Ht 149.9 cm; Wt 43.2 kg
[~2019-09-05 14:06] MED LIST changes: -ACETAMINOPHEN TAB 650MG DOSE (2X325MG) PO PRN; -BISACODYL 10 MG SUPP PR PRN; -LEVALBUTEROL 1.25 MG/0.5 ML CONCENTRATE NEB NEB PRN; -NORCO, ANEXSIA 5/325MG TABLET (HYDROcodone/ACETAMINOPHEN) PO PRN; -ONDANSETRON 4MG/2ML VIAL (J2405) IV PRN; -PERCOCET 5MG/325MG TAB PO PRN
--- NOTE | 2019-09-05 15:15 | REP ---
REASON: Followup effusion. COMPARISON: Multiple, the latest 08/28/2019. Once again, there is a loculated hydropneumothorax on the right which has changed little compared to the prior exam. The right heart border remains completely silhouetted out. The left lung is unchanged. Slight left CP angle blunting is again noted status quo. There is no change in the osseous structures. IMPRESSION: No significant change with the findings as described above. Electronically Signed by Sunny Black DO 09/05/2019 03:36 P
[2019-09-05 15:30] LABS: BASO % 0.4 % (0.0-1.0); EOS # 0.1 10^3/uL (0.0-0.5); EOS % 1.4 % (0.0-3.0); HEMATOCRIT 33.1 % (36.0-47.0); LYMPH # 0.6 10^3/uL (1.5-5.0); LYMPH % 7.3 % (24.0-44.0); MEAN CORPUSCULAR HEMOGLOBIN 29.8 pg (27.0-33.0); MEAN CORPUSCULAR HGB CONC 33.2 g/dl (32.0-36.5); MEAN CORPUSCULAR VOLUME 89.7 fl (80.0-96.0); MONO # 0.5 10^3/uL (0.0-0.8); MONO % 5.8 % (0.0-5.0); NEUTROPHILS # 7.3 10^3/uL (1.5-8.5); NEUTROPHILS % 84.7 % (36.0-66.0); PLATELET COUNT, AUTOMATED 483 10^3/uL (150-450); RED BLOOD COUNT 3.69 10^6/uL (4.00-5.40); WHITE BLOOD COUNT 8.6 10^3/uL (4.0-10.0)
[2019-09-05 15:58] LABS: ALBUMIN 2.6 GM/DL (3.2-5.2); ALT/SGPT 14 U/L (12-78); BILIRUBIN,DIRECT < 0.1 MG/DL (0.0-0.2); BILIRUBIN,TOTAL 0.3 MG/DL (0.2-1.0); BLOOD UREA NITROGEN 10 MG/DL (7-18); CALCIUM LEVEL 8.8 MG/DL (8.5-10.1); CARBON DIOXIDE LEVEL 22 MEQ/L (21-32); CHLORIDE LEVEL 107 MEQ/L (98-107); CK-MB VALUE MASS 1.1 NG/ML (<3.6); CPK CREATINE PHOSPHOKINASE 56 U/L (26-192); CREATININE FOR GFR 0.74 MG/DL (0.55-1.30); GLOMERULAR FILTRATION RATE > 60.0 (>51); GLUCOSE, FASTING 85 MG/DL (70-100); MB/CK RELATIVE INDEX 1.96 (< OR =4); POTASSIUM SERUM 4.4 MEQ/L (3.5-5.1); SODIUM LEVEL 138 MEQ/L (136-145); TOTAL PROTEIN 6.7 GM/DL (6.4-8.2); TROPONIN I < 0.02 NG/ML (< 0.10)
[2019-09-05 17:25] VITALS: BP 144/76
--- NOTE | 2019-09-06 18:54 | ECGEPIP ---
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
== END 2019-09-05 18:18 | disposition home or self-care (01) ==
LOC: M ED 14:06
DX: R09.81 Nasal congestion (principal); Z85.118 Personal history of other malignant neoplasm of bronchus and lung; J44.9 Chronic obstructive pulmonary disease, unspecified; Z79.899 Other long term (current) drug therapy

== ENCOUNTER → 2019-09-10 | Outpatient (CLI) | payer OTHER ==
--- NOTE | 2019-09-10 20:31 | REPPI ---
Clinical: Malignancy. Pleural effusion. Technique: PA and lateral. Comparison: 09/05/2019. Findings: Moderate/large right pleural effusion may be slightly improved when compared to prior examination. Underline areas of consolidation/mass suggested. Left basilar opacity suggesting atelectasis and possible small pleural effusion similar to prior examination. No obvious pneumothorax. Visualize cardiac silhouette normal. Skeletal structures intact. Impression: 1. Moderate/ large right pleural effusion may be slightly improved. Underlying areas of opacity suggesting consolidation/mass again suspected. 2. Left basilar opacities suggesting atelectasis and possible small pleural effusion. Electronically Signed by Trevor Marshall MD 09/10/2019 08:23 P
== END ==
LOC: M PLAIMG 08:35
PROVIDERS: ATTEND Thoracic Surgery (Cardiothoracic Vascular Surgery)
DX: C34.11 Malignant neoplasm of upper lobe, right bronchus or lung (principal); J90 Pleural effusion, not elsewhere classified; I31.3 Pericardial effusion (noninflammatory)

== ENCOUNTER → 2019-12-04 | Outpatient (REF) | payer OTHER | LOC: M LAB REF 14:40 | PROVIDERS: ATTEND Internal Medicine Pulmonary Disease | DX: J44.9 Chronic obstructive pulmonary disease, unspecified (principal); C34.11 Malignant neoplasm of upper lobe, right bronchus or lung ==

== ENCOUNTER → 2019-12-05 | Outpatient (REF) | payer OTHER | LOC: M LAB REF 12:12 | PROVIDERS: ATTEND Internal Medicine Pulmonary Disease | DX: J44.9 Chronic obstructive pulmonary disease, unspecified (principal) ==

== ENCOUNTER → 2019-12-06 | Outpatient (REF) | payer OTHER | LOC: M LAB REF 12:19 | PROVIDERS: ATTEND Internal Medicine Pulmonary Disease | DX: J44.9 Chronic obstructive pulmonary disease, unspecified (principal) ==

== ENCOUNTER → 2019-12-07 | Outpatient (CLI) | payer OTHER ==
--- NOTE | 2019-12-07 20:03 | ECHO ---
DATE OF PROCEDURE: 12/07/2019 DATE OF : 1960 AGE: 59 REFERRING PROVIDER: Dr Seng Harman PATIENT LOCATION: Outpatient REASON FOR THE STUDY: History of pericardial effusion, malignant neoplasm. 2D MEASUREMENTS: IVS: 0.7 cm LV: 3.1 cm LVPW: 0.7 cm LA: 2.1 cm Aorta: 2.1 cm IVC: 1.7 cm DOPPLER MEASUREMENTS: Peak velocity across the aortic valve: 1.38 meters per second Mitral E: 0.75, Mitral A: 0.60 with a ratio of 1.3 2D COMMENTS: 1. Technically limited study due to poor acoustic window. 2. The left ventricular size is normal. Left ventricular systolic function also appeared to be normal, estimated at 50-55%. 3. Normal left atrium. Normal right atrium and right ventricle. 4. The atrial septum appeared to be normal without evidence of defect or shunt. 5. Small to moderate pericardial effusion noted, no evidence of cardiac tamponade. Pericardial effusion was noted mainly towards the apex, anteriorly and inferiorly. Pleural effusion also noted. 6. Mildly calcified aortic valve with normal leaflet excursion. Normal mitral valve, tricuspid valve. The pulmonic valve and proximal pulmonary artery branches were not well visualized. 7. The inferior vena cava was normal in size, central venous pressure is most likely most likely normal. DOPPLER: It detects moderate aortic regurgitation. IMPRESSION: 1. Technically limited study due to poor acoustic window. 2. Low normal global left ventricular systolic function. There are some features of grade 2 left ventricular diastolic dysfunction. 3. Aortic valve sclerosis with moderate aortic regurgitation and trivial aortic stenosis. 4. Small to moderate pericardial effusion noted, no evidence of cardiac tamponade. Pleural effusion also noted. MTDD
== END ==
LOC: M CARPUL 11:09
PROVIDERS: ATTEND Thoracic Surgery (Cardiothoracic Vascular Surgery)
DX: C34.11 Malignant neoplasm of upper lobe, right bronchus or lung (principal)

== ENCOUNTER → 2020-01-02 | Outpatient (CLI) | payer OTHER ==
[~2020-01-02] MED LIST changes: +ALBU1.25 INH; +ALBU1.25 NEB; +AZEL1SPR3 NARES; +BUDE10.2 IH; +DILA2TAB6 PO; +FERR325T18 PO; +FERR325T3 PO; +FLON1SPR NARES; +IBUP-1022 PO; +IBUP1TAB7 PO; +MUCI600T31 PO; -PANT20TA2; -PANT20TA2 PO; +PANT20TA6; +PANT20TA6 PO; +PANT40TA29 PO
--- NOTE | 2020-01-03 00:03 | REP ---
REASON FOR EXAM: Followup. All prior chest CTs were reviewed, latest 08/26/2019. There is no change in the mediastinum or pulmonary izzy. There is no change in the imaged upper abdomen or imaged osseous structures. The hydropneumothorax seen on the 08/26/2019 examination is now strictly a hydrothorax. The pneumothorax component is no longer present. There is a small left pleural effusion, which has decreased in size compared to the prior exam. Once again, there is consolidation of a large portion of the right lung; however, this has improved slightly from the prior exam. The left lung is unchanged. IMPRESSION: Findings as described above. Electronically Signed by Sunny Black DO 01/03/2020 11:25 A
== END ==
LOC: M RAD 13:09
PROVIDERS: ATTEND Internal Medicine Pulmonary Disease
DX: C34.11 Malignant neoplasm of upper lobe, right bronchus or lung (principal); J90 Pleural effusion, not elsewhere classified

== ENCOUNTER 2020-03-24 20:57 | Inpatient (IN) | payer OTHER ==
[~2020-03-24] VITALS: Ht 149.9 cm; Wt 44.3 kg
[~2020-03-24 20:57] MED LIST changes: -ALBU1.25 INH; -ALBU1.25 NEB; -AZEL1SPR3 NARES; -BUDE10.2 IH; -DILA2TAB6 PO; -FERR325T18 PO; -FERR325T3 PO; -FLON1SPR NARES; -IBUP-1022 PO; -IBUP1TAB7 PO; -MUCI600T31 PO; -PANT40TA29 PO
[2020-03-24] MEDS ORDERED: IBUP-1022 PO (21:11)
[2020-03-24] MEDS ORDERED: LEVO75TA4 PO (21:11)
[2020-03-24] MEDS ORDERED: ACETAMINOPHEN TAB 650MG DOSE (2X325MG) PO ONE (22:00)
[2020-03-24] MEDS ORDERED: NS 500 ML IV ONE (22:00)
--- NOTE | 2020-03-24 22:42 | REPVR ---
PROCEDURE INFORMATION: Exam: XR Chest, 1 View Exam date and time: 03/24/2020 9:59 PM Age: 59 years old Clinical indication: Shortness of breath; Additional info: Dyspnea/cough TECHNIQUE: Imaging protocol: XR of the chest Views: 1 view. COMPARISON: CT Chest without contrast 01/02/2020 1:31 PM FINDINGS: Lungs: Apparent spiculated mass in the medial aspect of the right upper lobe measures approximately 3.3 x 4.3 cm. Left lung clear. Pleural space: Loculated moderate size right pleural effusion. Heart/Mediastinum: Unremarkable. No cardiomegaly. Bones/joints: Unremarkable. IMPRESSION: 1. Apparent spiculated mass in the medial aspect of the right upper lobe measures approximately 3.3 x 4.3 cm. 2. Loculated moderate size right pleural effusion. Electronically signed by: Raymundo Brunner On 03/24/2020 22:42:35 PM
[2020-03-24 23:23] LABS: BASO % 0.3 % (0.0-1.0); HEMATOCRIT 32.9 % (36.0-47.0); HEMOGLOBIN 10.3 g/dl (12.0-15.5); LYMPH # 0.4 10^3/uL (1.5-5.0); LYMPH % 3.5 % (24.0-44.0); MEAN CORPUSCULAR HEMOGLOBIN 26.1 pg (27.0-33.0); MEAN CORPUSCULAR HGB CONC 31.3 g/dl (32.0-36.5); MEAN CORPUSCULAR VOLUME 83.3 fl (80.0-96.0); MONO # 1.3 10^3/uL (0.0-0.8); MONO % 10.7 % (0.0-5.0); NEUTROPHILS % 84.2 % (36.0-66.0); PLATELET COUNT, AUTOMATED 174 10^3/uL (150-450); RED BLOOD COUNT 3.95 10^6/uL (4.00-5.40); WHITE BLOOD COUNT 11.8 10^3/uL (4.0-10.0)
[2020-03-24 23:56] LABS: ALT/SGPT 16 U/L (12-78); BILIRUBIN,DIRECT 0.2 MG/DL (0.0-0.2); BILIRUBIN,TOTAL 0.6 MG/DL (0.2-1.0); BLOOD UREA NITROGEN 11 MG/DL (7-18); CALCIUM LEVEL 8.9 MG/DL (8.5-10.1); CARBON DIOXIDE LEVEL 21 MEQ/L (21-32); CHLORIDE LEVEL 105 MEQ/L (98-107); CK-MB VALUE MASS < 1.0 NG/ML (<3.6); CPK CREATINE PHOSPHOKINASE 55 U/L (26-192); GLOMERULAR FILTRATION RATE > 60.0 (>51); GLUCOSE, FASTING 101 MG/DL (70-100); MB/CK RELATIVE INDEX 1.82 (< OR =4); NT-PRO BNP 1043 PG/ML (<125); POTASSIUM SERUM 3.7 MEQ/L (3.5-5.1); SODIUM LEVEL 134 MEQ/L (136-145); THYROXINE (T4) 14.4 UG/DL (4.5-12.0); TOTAL PROTEIN 6.8 GM/DL (6.4-8.2); TROPONIN I < 0.02 NG/ML (< 0.10)
[2020-03-25] MEDS ORDERED: IBUPROFEN 400 MG TAB PO ONE (02:00)
--- NOTE | 2020-03-25 02:51 | REPVR ---
PROCEDURE INFORMATION: Exam: CT Chest Without Contrast Exam date and time: 03/25/2020 2:07 AM Age: 59 years old Clinical indication: Fever; Additional info: Fever unknown origin TECHNIQUE: Imaging protocol: Computed tomography of the chest without contrast. 3D rendering (Not supervised by radiologist): MIP and/or 3D reconstructed images were created by the technologist. Radiation optimization: All CT scans at this facility use at least one of these dose optimization techniques: automated exposure control; mA and/or kV adjustment per patient size (includes targeted exams where dose is matched to clinical indication); or iterative reconstruction. COMPARISON: CT Chest without contrast 01/02/2020 1:31 PM FINDINGS: Lungs: Right upper lobe consolidation with some internal bronchiectasis and elevation of the right hemidiaphragm. Minimal infiltrate and atelectasis is noted in the remaining aerated right lung base which is similar to slightly increased since the prior study. The right lung consolidation is similar. Pleural space: Minimal left pleural effusion. Mild loculated right pleural effusion anteriorly. Heart: Unremarkable. No cardiomegaly. No pericardial effusion. Aorta: Unremarkable. No aortic aneurysm. Lymph nodes: Unremarkable. No enlarged lymph nodes. Bones/joints: Unremarkable. No acute fracture. Soft tissues: Unremarkable. IMPRESSION: 1. Minimal left pleural effusion which is slightly increased since 01/02/2020. 2. Right upper lobe atelectasis and consolidation with bronchiectasis which is similar to prior study. There is adjacent loculated right pleural effusion anteriorly which may reflect empyema which is similar. 3. There is minimal scattered infiltrate and atelectasis in the remaining aerated right lung which is similar to slightly increased. Electronically signed by: Gab Haji On 03/25/2020 02:50:42 AM
[2020-03-25] MEDS ORDERED: PIPERACILLIN/TAZOBACTAM SOD 3.375 GM in D5W MINI-BAG PLUS 50 ML IV ONE (03:15)
[2020-03-25] MEDS ORDERED: IBUP1TAB7 PO (03:47)
[2020-03-25] MEDS ORDERED: SYNT75TA PO (03:47)
[2020-03-25] MEDS ORDERED: VANCOMYCIN HCL 1,000 MG, VIAL MATE ADAPTER 1 EACH in D5W 250 ML IV SCH ×2 (04:45→19:00)
--- NOTE | 2020-03-25 04:54 | HPEPDOC ---
[facility] Medical History & Physical Date of Admission Mar 25, 2020 Date of Service: Mar 25, 2020 Attending Physician: DELIA MORALES DO History and Physical CHIEF COMPLAINT: fevers HISTORY OF PRESENT ILLNESS: Genesis Elder is a 59 YO F with history of adenocarcinoma of the RUL complicated by recurrent pleural effusion who presents to the ED with 48 hours of fever. She states that she has been taking her temperature at home and has found it to be as high as 103. She denies any recent illnesses or sick contacts. She states that she usually feels her fevers coming and gets cold chills. She has taken ibuprofen which has been been effective. She denies any worsened shortness of breath or dyspnea on exertion. 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 She has tried taking antihistamines for this cough but it has not improved. The cough is worse in the early mornings. She does also endorse ~15lb unintentional weight loss since August 2019, when she was last admitted and underwent pericardiocentesis and thoracentesis drainage for her pleural effusion. Fluid cytology during that time showed lymphocytic effusion and she was diagnosed with radiation serositis. PAST MEDICAL HISTORY: 1. History of Emphysema (Follows with Dr. Zepeda) 2. 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 Recurrent tonsillitis 5. Hypothyroidism PAST SURGICAL HISTORY: 1. Thoracentesis for chronic R pleural effusion 2. Pericardiocentesis for chronic pericardial effusion 3. 4. R shoulder surgery SOCIAL HISTORY: Former smoker, smoked 1 ppd for 20 years, quit 14 years ago Occasional alcohol Denies illicit drugs FAMILY HISTORY: Noncontributory ALLERGIES: Please see below. REVIEW OF SYSTEMS: Constitutional: Reports ~15lb unintentional weight loss over 6 months, reports fevers, chills, No Night Sweats, No Fatigue, No Malaise ENT/Mouth: No Hearing Changes, No Ear Pain, No Nasal Congestion, Reports post- nasal drip worse in AM Eyes: No Eye Pain, No Swelling, No Redness, No Foreign Body, No Discharge, No Vision Changes Cardiovascular: No Chest Pain, No SOB, No PND, No Dyspnea on Exertion, No Orthopnea, No Claudication, No Edema, No Palpitations Respiratory: No Cough, No Wheezing, No Smoke Exposure, No Dyspnea Gastrointestinal: No Nausea, No Vomiting, No Diarrhea, No Constipation, No Pain, No Heartburn, No Anorexia, No Dysphagia, No Hematochezia, No Melena, No Jaundice Genitourinary: No Dysmenorrhea, No DUB, No Dyspareunia, No Dysuria Musculoskeletal: No Arthralgias, No Myalgias, No Joint Swelling, No Joint Stiffness, No Back Pain, No Neck Pain, No Injury History Skin: No Skin Lesions, No Pruritis, No Hair Changes, No Breast/Skin Changes, No Nipple Discharge Neuro: No Weakness, No Numbness, No Paresthesias, No Loss of Consciousness, No Syncope, No Dizziness, No Headache, No Coordination Changes, No Recent Falls Psych: No Anxiety/Panic, No Depression, No Insomnia, No Personality Changes, No Delusions Heme/Lymph: No Bruising, No Bleeding, No Transfusions History, No Lymphadenopathy Endocrine: No Polyuria, No Polydipsia, No Temperature Intolerance HOME MEDICATIONS: Please see below. VITAL SIGNS: see below GENERAL: very cachectic, alert and oriented, in no apparent distress, pleasant and conversant in full sentences. HEENT: PERRL, EOMI, Oral mucous membranes are moist without lesions, Normocephalic/atraumatic NECK: The patient has no noted JVD. No adenopathy is appreciated. No thyromegaly CHEST/LUNGS: There is diminished breath sounds at RLL and RML. Decreased tactile fremitus in RML and RLL. Otherwise no adventitious breath sounds appreciated. There is no subcutaneous air appreciated. There is no tenderness to the chest wall. HEART: Regular rate and rhythm. No murmurs, rubs, or gallops are appreciated. Distal pulses are 2+. No carotid bruits appreciated. ABDOMEN: Soft, nontender, and nondistended. Bowel sounds are positive. No organomegaly is appreciated. No masses are appreciated. There are no peritoneal signs. There is no Council sign. EXTREMITIES: No peripheral edema. There is no focal long bone tenderness or deformity. SKIN: The patients skin is warm and dry, without rashes or lesions. PSYCHIATRIC: AAO x 3, normal mood/affect NEUROLOGIC: The patient has 5/5 strength to the upper and lower extremities bilaterally. Sensation is intact throughout. Deep tendon reflexes are 2+ in all four extremities. There are no deficits to the cranial nerves. LABORATORY DATA: See below. IMAGING: CXR: FINDINGS: Lungs: Apparent spiculated mass in the medial aspect of the right upper lobe measures approximately 3.3 x 4.3 cm. Left lung clear. Pleural space: Loculated moderate size right pleural effusion. Heart/Mediastinum: Unremarkable. No cardiomegaly. Bones/joints: Unremarkable. IMPRESSION: 1. Apparent spiculated mass in the medial aspect of the right upper lobe measures approximately 3.3 x 4.3 cm. 2. Loculated moderate size right pleural effusion. CHEST CT: FINDINGS: Lungs: Right upper lobe consolidation with some internal bronchiectasis and elevation of the right hemidiaphragm. Minimal infiltrate and atelectasis is noted in the remaining aerated right lung base which is similar to slightly increased since the prior study. The right lung consolidation is similar. Pleural space: Minimal left pleural effusion. Mild loculated right pleural effusion anteriorly. Heart: Unremarkable. No cardiomegaly. No pericardial effusion. Aorta: Unremarkable. No aortic aneurysm. Lymph nodes: Unremarkable. No enlarged lymph nodes. Bones/joints: Unremarkable. No acute fracture. Soft tissues: Unremarkable. IMPRESSION: 1. Minimal left pleural effusion which is slightly increased since 01/02/2020. 2. Right upper lobe atelectasis and consolidation with bronchiectasis which is similar to prior study. There is adjacent loculated right pleural effusion anteriorly which may reflect empyema which is similar. 3. There is minimal scattered infiltrate and atelectasis in the remaining aerated right lung which is similar to slightly increased. LAST ECHO 11/2019: LVEF 50-55% IMPRESSION: 1. Technically limited study due to poor acoustic window. 2. Low normal global left ventricular systolic function. There are some features of grade 2 left ventricular diastolic dysfunction. 3. Aortic valve sclerosis with moderate aortic regurgitation and trivial aortic stenosis. 4. Small to moderate pericardial effusion noted, no evidence of cardiac tamponade. Pleural effusion also noted. MICROBIOLOGY: Please see below. ASSESSMENT: This is a 59 YO F with history of adenocarcinomal of the RUL s/p chemo and radiation who presents with a fever found to have sepsis concerning for empyema vs PNA vs worsened cancer burden. . PLAN: 1. Sepsis: WBC 11.8 / T 101.8 / HR >100 / possible source of infection identified: ddx includes empyema (allthough no pleuritic chest pain is appreciated) vs new PNA vs malignancy fever -Tmax at home reported as 103, Temp found to be 101.8 on admission -Blood cultures x2 ordered -CT demonstrates mass and possible infiltrate vs atelectasis -Will cover empirically with Vancomycin and Zosyn -NS IVF 500cc given in ED -Ibuprofen/Tylenol for fevers -Recommend consulting Dr. Harman in AM for interval increased pleural effusion size on CT. Patient denies any SOB and is on RA 2. Elevated BNP: BNP 1043 -Patient does have a history of grade 2 diastolic dysfunction. Does not appear to be clinically fluid overloaded at this time. -Caution with fluid resuscitation 3. Adenocarcinoma of the lung: Was last seen by medical oncology 03/17/20 -Recommended PET CT follow-up, has yet to be done 4. Hypothyroidism: -TSH, T4 within normal limits -Continue home levothyroxine dose DVT ppx: Lovenox Vital Signs Vital Signs Date Time Temp Pulse Resp B/P (MAP) Pulse Ox O2 Delivery O2 Flow Rate FiO2 03/25/20 01:32 101.8 112 20 109/55 (73) 95 Room Air Laboratory Data Labs 24H Laboratory Tests 2 03/24/20 22:47: Anion Gap 8, Glomerular Filtration Rate > 60.0, Calcium Level 8.9, Total Bilirubin 0.6, Direct Bilirubin 0.2, Aspartate Amino Transf (AST/SGOT) 19, Alanine Aminotransferase (ALT/SGPT) 16, Alkaline Phosphatase 123H, Total Creat ine Kinase 55, Creatine Kinase MB < 1.0, Creatine Kinase MB Relative Index 1.82, Troponin I < 0.02, BK-Gid-S-Type Natriuretic Peptide 1043H, Total Protein 6.8, Albumin 3.0L, Albumin/Globulin Ratio 0.8L, Thyroid Stimulating Hormone (TSH) 0.610, Thyroxine (T4) 14.4H 03/24/20 22:48: Immature Granulocyte % (Auto) 1.3, Neutrophils (%) (Auto) 84.2H, Lymphocytes (%) (Auto) 3.5L, Monocytes (%) (Auto) 10.7H, Eosinophils (%) (Auto) 0.0, Basophils (%) (Auto) 0.3, Neutrophils # (Auto) 10.0H, Lymphocytes # (Auto) 0.4L, Monocytes # (Auto) 1.3H, Eosinophils # (Auto) 0.0, Basophils # (Auto) 0.0, Nucleated Red Blood Cells % (auto) 0.0, Lactic Acid Level 1.1 03/24/20 23:36: Urine Color YELLOW, Urine Appearance CLEAR, Urine pH 6.0, Urine Specific [place] 1.017, Urine Protein 2+H, Urine Glucose (UA) NEGATIVE, Urine Ketones 1+H, Urine Blood 1+H, Urine Nitrite NEGATIVE, Urine Bilirubin NEGATIVE, Urine Urobilinogen 4.0H, Urine Leukocyte Esterase NEGATIVE, Urine WBC (Auto) 2, Urine RBC (Auto) 4H, Urine Hyaline Casts (Auto) 0, Urine Bacteria (Auto) NEGATIVE, Urine Squamous Epithelial Cells 0, Urine Sperm (Auto) CBC/BMP Laboratory Tests 03/24/20 22:47 03/24/20 22:48 Microbiology Microbiology 03/24/20 Respiratory Virus Panel (PCR) ([facility]) - Final, Complete 03/24/20 Blood Culture, Received Pending 03/24/20 Blood Culture, Received Pending Home Medications Scheduled Levothyroxine Sodium (Synthroid) 75 Mcg Tablet, 75 MCG PO DAILY Scheduled PRN Ibuprofen (Ibuprofen) 800 Mg Tablet, 800 MG PO BID PRN for PAIN / FEVER Allergies Coded Allergies: No Known Allergies (Unverified , 08/07/18) A-FIB/CHADSVASC A-FIB History Current/History of A-Fib/PAF?: No GME ATTESTATION GME ATTESTATION My faculty preceptor for this patient encounter was physically present during the encounter and was fully available. All aspects of the patient interview, examination, medical decision making process, and medical care plan development were reviewed and approved by the faculty preceptor. The faculty preceptor is a roth and concurs with the plan as stated in the body of this note and will attest to such by his/her cosignature. LASHAY BRIDGES MD Mar 25, 2020 04:53
[2020-03-25] MEDS: LEVOTHYROXINE 75MCG TABLET (0.075MG) PO SCH (05:59)
[2020-03-25] MEDS ORDERED: VANCOMYCIN HCL 1,000 MG, VIAL MATE ADAPTER 1 EACH in D5W 250 ML IV ONE (06:00)
[2020-03-25] MEDS ORDERED: SODIUM CHLORIDE 0.9% 1000ML IV ONE ×2 (06:00→08:45)
[2020-03-25 06:30] VITALS: BP 85/50
[2020-03-25 06:52] VITALS: BP 86/51
[2020-03-25] MEDS: ENOXAPARIN 40MG/0.4ML SYRINGE (J1650 PER 10MG) SC SCH (07:45)
[2020-03-25 08:35] VITALS: BP 86/52
--- NOTE | 2020-03-25 09:42 | ECGEPIP ---
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
[2020-03-25 10:12] VITALS: BP 91/54
[2020-03-25] MEDS: PIPERACILLIN/TAZOBACTAM SOD 3.375 GM in D5W MINI-BAG PLUS 50 ML IV SCH ×3 (10:28→21:09)
[2020-03-25] MEDS: NS 1,000 ML IV SCH ×2 (10:28→22:07)
--- NOTE | 2020-03-25 10:31 | IPNPDOC ---
Text Note Date of Service The patient was seen on 03/25/20. NOTE Subjective: -No complaints this morning, However continues to be hypotensive to SBP 80s. Objective: VITAL SIGNS: see below, 86/49, afebrile, saturating well on room air GENERAL: cachectic, chronically ill appearing, alert and oriented x 3 HEENT: PERRLA, EOMI, Oral mucous membranes are moist without lesions, Normocephalic/atraumatic NECK: The patient has no noted JVD. No adenopathy is appreciated. CHEST/LUNGS: There is diminished breath sounds at RLL and RML. Otherwise no adventitious breath sounds appreciated. HEART: Regular rate and rhythm. No murmurs, rubs, or gallops are appreciated. Distal pulses are 2+. No carotid bruits appreciated. ABDOMEN: Soft, nontender, and nondistended. Bowel sounds are positive. No organomegaly is appreciated. No masses are appreciated. EXTREMITIES: No peripheral edema. There is no focal long bone tenderness or deformity. SKIN: The patients skin is warm and dry, without rashes or lesions. PSYCHIATRIC: AAO x 3, normal mood/affect NEUROLOGIC: The patient has 5/5 strength to the upper and lower extremities bilaterally. Sensation is intact throughout. Deep tendon reflexes are 2+ in all four extremities. There are no deficits to the cranial nerves. LABORATORY DATA: See below. Reviewed. WBC 11.8 hgb 10.3 Platelets 174 na 134 K 3.7 Cr 0.7 IMAGING: CXR: FINDINGS: Lungs: Apparent spiculated mass in the medial aspect of the right upper lobe measures approximately 3.3 x 4.3 cm. Left lung clear. Pleural space: Loculated moderate size right pleural effusion. Heart/Mediastinum: Unremarkable. No cardiomegaly. Bones/joints: Unremarkable. IMPRESSION: 1. Apparent spiculated mass in the medial aspect of the right upper lobe measures approximately 3.3 x 4.3 cm. 2. Loculated moderate size right pleural effusion. CHEST CT: FINDINGS: Lungs: Right upper lobe consolidation with some internal bronchiectasis and elevation of the right hemidiaphragm. Minimal infiltrate and atelectasis is noted in the remaining aerated right lung base which is similar to slightly increased since the prior study. The right lung consolidation is similar. Pleural space: Minimal left pleural effusion. Mild loculated right pleural effusion anteriorly. Heart: Unremarkable. No cardiomegaly. No pericardial effusion. Aorta: Unremarkable. No aortic aneurysm. Lymph nodes: Unremarkable. No enlarged lymph nodes. Bones/joints: Unremarkable. No acute fracture. Soft tissues: Unremarkable. IMPRESSION: 1. Minimal left pleural effusion which is slightly increased since 01/02/2020. 2. Right upper lobe atelectasis and consolidation with bronchiectasis which is similar to prior study. There is adjacent loculated right pleural effusion anteriorly which may reflect empyema which is similar. 3. There is minimal scattered infiltrate and atelectasis in the remaining aerated right lung which is similar to slightly increased. LAST ECHO 11/2019: LVEF 50-55% IMPRESSION: 1. Technically limited study due to poor acoustic window. 2. Low normal global left ventricular systolic function. There are some features of grade 2 left ventricular diastolic dysfunction. 3. Aortic valve sclerosis with moderate aortic regurgitation and trivial aortic stenosis. 4. Small to moderate pericardial effusion noted, no evidence of cardiac tamponade. Pleural effusion also noted. MICROBIOLOGY: Please see below. 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 . PLAN: 1. Severe sepsis with hypotension: WBC 11.8 / T 101.8 / HR >100 / possible source of infection most likely UTI vs. unlikely pulmonary: -f/u blood cultures, SCx, UCx -CT demonstrates mass and possible infiltrate vs atelectasis -Will continue empiric Zosyn -Ibuprofen/Tylenol for fevers PRN -1L NS bolus, then 100cc/hr 2. Elevated BNP: BNP 1043 -Patient does have a history of grade 2 diastolic dysfunction. Does not appear to be clinically fluid overloaded at this time. -Caution with fluid resuscitation 3. Adenocarcinoma of the lung: Was last seen by medical oncology 03/17/20 -Recommended PET CT follow-up, has yet to be done 4. Hypothyroidism: -TSH, T4 within normal limits -Continue home levothyroxine dose DVT ppx: Lovenox Dispo: inpatient VS,Fishbone, I+O VS, Fishbone, I+O Laboratory Tests 03/24/20 22:47 03/24/20 22:48 Vital Signs Date Time Temp Pulse Resp B/P (MAP) Pulse Ox O2 Delivery O2 Flow Rate FiO2 03/25/20 08:35 86/52 (63) 03/25/20 06:30 98.2 93 19 100 03/25/20 04:27 Room Air I&O- Last 24 Hours up to 6 AM 03/25/20 06:00 Intake Total 550 ml Balance 550 ml EDSON WAGNER MD Mar 25, 2020 08:56
[2020-03-25 14:00] VITALS: BP 98/46
[2020-03-25] MEDS ORDERED: VANCOMYCIN HCL 750 MG, VIAL MATE ADAPTER 1 EACH in D5W 250 ML IV SCH (14:00)
[2020-03-25] MEDS: IBUPROFEN 400 MG TAB PO PRN (16:02)
[2020-03-25] MEDS: ACETAMINOPHEN TAB 650MG DOSE (2X325MG) PO PRN (17:29)
[2020-03-25] MEDS: VANCOMYCIN HCL 750 MG, VIAL MATE ADAPTER 1 EACH in D5W 250 ML IV SCH (19:34)
[2020-03-25 22:00] VITALS: BP 101/63
[2020-03-26] MEDS: PIPERACILLIN/TAZOBACTAM SOD 3.375 GM in D5W MINI-BAG PLUS 50 ML IV SCH (03:05)
[2020-03-26] MEDS: LEVOTHYROXINE 75MCG TABLET (0.075MG) PO SCH (05:50)
[2020-03-26] MEDS: ACETAMINOPHEN TAB 650MG DOSE (2X325MG) PO PRN ×2 (05:50→06:26)
[2020-03-26 06:00] VITALS: BP 127/71
[2020-03-26 06:01] LABS: HEMATOCRIT 29.7 % (36.0-47.0); HEMOGLOBIN 9.2 g/dl (12.0-15.5); MEAN CORPUSCULAR HEMOGLOBIN 26.4 pg (27.0-33.0); MEAN CORPUSCULAR VOLUME 85.1 fl (80.0-96.0); PLATELET COUNT, AUTOMATED 142 10^3/uL (150-450); RED BLOOD COUNT 3.49 10^6/uL (4.00-5.40); WHITE BLOOD COUNT 7.9 10^3/uL (4.0-10.0)
[2020-03-26] MEDS ORDERED: FLUTICASONE PROP 0.05% NASAL SPRAY 16 GM (FLONASE) NARES SCH (06:15)
[2020-03-26 06:26] LABS: ALBUMIN 2.3 GM/DL (3.2-5.2); ALT/SGPT 7 U/L (12-78); BILIRUBIN,TOTAL 0.7 MG/DL (0.2-1.0); BLOOD UREA NITROGEN 10 MG/DL (7-18); CALCIUM LEVEL 8.1 MG/DL (8.5-10.1); CARBON DIOXIDE LEVEL 20 MEQ/L (21-32); CHLORIDE LEVEL 113 MEQ/L (98-107); CREATININE FOR GFR 0.62 MG/DL (0.55-1.30); GLOMERULAR FILTRATION RATE > 60.0 (>51); GLUCOSE, FASTING 86 MG/DL (70-100); POTASSIUM SERUM 3.5 MEQ/L (3.5-5.1); SODIUM LEVEL 140 MEQ/L (136-145); TOTAL PROTEIN 5.4 GM/DL (6.4-8.2)
[2020-03-26] MEDS: ENOXAPARIN 40MG/0.4ML SYRINGE (J1650 PER 10MG) SC SCH (08:48)
[2020-03-26] MEDS: VANCOMYCIN HCL 750 MG, VIAL MATE ADAPTER 1 EACH in D5W 250 ML IV SCH (08:48)
--- NOTE | 2020-03-26 11:19 | IPNPDOC ---
Text Note Date of Service The patient was seen on 03/26/20. NOTE Subjective: -No complaints this morning, however continues to have persistent fevers. Is concerned that her fevers and feeing tired is linked to pip/tazo. Objective: VITAL SIGNS: HDS, febrile to 101.7, saturating well on room air GENERAL: cachectic, chronically ill appearing, alert and oriented x 3 HEENT: PERRLA, EOMI, Oral mucous membranes are moist without lesions, Normoc ephalic/atraumatic NECK: The patient has no noted JVD. No adenopathy is appreciated. CHEST/LUNGS: There is diminished breath sounds at RLL and RML. HEART: Regular rate and rhythm. No murmurs, rubs, or gallops are appreciated. Distal pulses are 2+. No carotid bruits appreciated. ABDOMEN: Soft, nontender, and nondistended. Bowel sounds are positive. No organomegaly is appreciated. No masses are appreciated. EXTREMITIES: No peripheral edema. There is no focal long bone tenderness or deformity. SKIN: The patients skin is warm and dry, without rashes or lesions. PSYCHIATRIC: AAO x 3, normal mood/affect NEUROLOGIC: The patient has 5/5 strength to the upper and lower extremities bilaterally. Sensation is intact throughout. Deep tendon reflexes are 2+ in all four extremities. There are no deficits to the cranial nerves. LABORATORY DATA: See below. Reviewed. WBC 7.9 hgb 9.2 Platelets 142 na 140 K 3.5 Cr 0.62 IMAGING: CXR: FINDINGS: Lungs: Apparent spiculated mass in the medial aspect of the right upper lobe measures approximately 3.3 x 4.3 cm. Left lung clear. Pleural space: Loculated moderate size right pleural effusion. Heart/Mediastinum: Unremarkable. No cardiomegaly. Bones/joints: Unremarkable. IMPRESSION: 1. Apparent spiculated mass in the medial aspect of the right upper lobe measures approximately 3.3 x 4.3 cm. 2. Loculated moderate size right pleural effusion. CHEST CT: FINDINGS: Lungs: Right upper lobe consolidation with some internal bronchiectasis and elevation of the right hemidiaphragm. Minimal infiltrate and atelectasis is noted in the remaining aerated right lung base which is similar to slightly increased since the prior study. The right lung consolidation is similar. Pleural space: Minimal left pleural effusion. Mild loculated right pleural effusion anteriorly. Heart: Unremarkable. No cardiomegaly. No pericardial effusion. Aorta: Unremarkable. No aortic aneurysm. Lymph nodes: Unremarkable. No enlarged lymph nodes. Bones/joints: Unremarkable. No acute fracture. Soft tissues: Unremarkable. IMPRESSION: 1. Minimal left pleural effusion which is slightly increased since 01/02/2020. 2. Right upper lobe atelectasis and consolidation with bronchiectasis which is similar to prior study. There is adjacent loculated right pleural effusion anteriorly which may reflect empyema which is similar. 3. There is minimal scattered infiltrate and atelectasis in the remaining aerated right lung which is similar to slightly increased. LAST ECHO 11/2019: LVEF 50-55% IMPRESSION: 1. Technically limited study due to poor acoustic window. 2. Low normal global left ventricular systolic function. There are some features of grade 2 left ventricular diastolic dysfunction. 3. Aortic valve sclerosis with moderate aortic regurgitation and trivial aortic stenosis. 4. Small to moderate pericardial effusion noted, no evidence of cardiac tamponade. Pleural effusion also noted. MICROBIOLOGY: Please see below. 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 . PLAN: 1. Severe sepsis with hypotension: source of infection likely pulmonary with c/f possible empyema -f/u blood cultures, SCx -CT demonstrates stable mass/consolidation however with R loculated effusion c/f empyema, reached out to Dr. Harman --> officially consulted, recommending sampling thoracentesis for culture. -Will continue empiric Vanc and switch from pip/tazo to cefepime -Ibuprofen/Tylenol for fevers PRN -will dc fluids at this time -UA was bland -abdominal exam is benign 2. Elevated BNP: BNP 1043 -Patient does have a history of grade 2 diastolic dysfunction. Does not appear to be clinically fluid overloaded at this time. -Caution with fluid resuscitation 3. Adenocarcinoma of the lung: Was last seen by medical oncology 03/17/20 -Recommended PET CT follow-up, has yet to be done 4. Hypothyroidism: -TSH, T4 within normal limits -Continue home levothyroxine dose DVT ppx: Lovenox Dispo: inpatient VS,Fishbone, I+O VS, Fishbone, I+O Laboratory Tests 03/26/20 05:41 Vital Signs Date Time Temp Pulse Resp B/P (MAP) Pulse Ox O2 Delivery O2 Flow Rate FiO2 03/26/20 07:08 101.6 03/26/20 06:00 98 18 127/71 (89) 99 Room Air I&O- Last 24 Hours up to 6 AM 03/26/20 06:00 Intake Total 3755 ml Output Total 2100 ml Balance 1655 ml EDSON WAGNER MD Mar 26, 2020 07:33
[2020-03-26 13:17] LABS: LDH LACTATE DEHYDROGENASE 115 U/L (84-246)
[2020-03-26] MEDS: FLUTICASONE PROP 0.05% NASAL SPRAY 16 GM (FLONASE) NARES SCH (13:21)
[2020-03-26] MEDS: guaiFENesin ER 600 MG TAB PO SCH ×2 (13:22→20:14)
[2020-03-26] MEDS: CEFEPIME HCL 1 GM in D5W MINI-BAG PLUS 50 ML IV SCH ×2 (13:55→23:19)
[2020-03-26] MEDS: IBUPROFEN 400 MG TAB PO PRN ×2 (13:56→22:06)
[2020-03-26 14:00] VITALS: BP 153/82
[2020-03-26] MEDS ORDERED: SODIUM BICARBONATE 8.4% INJ 50MEQ 50 ML VIAL As Ordered ONE (15:48)
[2020-03-26 16:59] VITALS: BP 153/84
--- NOTE | 2020-03-26 18:02 | REPVR ---
PROCEDURE INFORMATION: Exam: CT Abdomen And Pelvis Without Contrast Exam date and time: 03/26/2020 5:42 PM Age: 59 years old Clinical indication: Fever; Additional info: Persistent fevers TECHNIQUE: Imaging protocol: Computed tomography of the abdomen and pelvis without contrast. Radiation optimization: All CT scans at this facility use at least one of these dose optimization techniques: automated exposure control; mA and/or kV adjustment per patient size (includes targeted exams where dose is matched to clinical indication); or iterative reconstruction. COMPARISON: CT Abdomen with contrast 01/25/2018 4:09 PM FINDINGS: Lungs: Redemonstration right lung consolidation with air bronchograms and basilar infiltrates. Pleural space: Bilateral pleural effusions, loculated on the right. Heart: Small pericardial effusion. Liver: Normal. No mass. Gallbladder and bile ducts: Noncalcific density demonstrated within the lumen of the gallbladder may represent tumefactive sludge or a poorly calcified gallstone. Pancreas: Normal. No ductal dilation. Spleen: Normal. No splenomegaly. Adrenals: Left adrenal hyperplasia. Kidneys and ureters: Normal. No hydronephrosis. Stomach and bowel: Mildly dilated small bowel loops, nonspecific finding which may indicate the presence of an ileus, early small bowel obstruction or enteritis. Appendix: No evidence of appendicitis. Intraperitoneal space: There is a small amount of free intraperitoneal fluid present. Vasculature: The aortoiliac vessels demonstrate mild atherosclerotic calcification. Lymph nodes: Unremarkable. No enlarged lymph nodes. Urinary bladder: Unremarkable as visualized. Reproductive: Unremarkable as visualized. Bones/joints: Unremarkable. No acute fracture. Soft tissues: There is a small umbilical hernia. There is no evidence of incarceration. IMPRESSION: 1. Noncalcific density demonstrated within the lumen of the gallbladder may represent tumefactive sludge or a poorly calcified gallstone. 2. There is a small amount of free intraperitoneal fluid present. 3. Mildly dilated small bowel loops, nonspecific finding which may indicate the presence of an ileus, early small bowel obstruction or enteritis. Electronically signed by: Raymundo Brunner On 03/26/2020 18:01:32 PM
--- NOTE | 2020-03-26 18:03 | REPVR ---
PROCEDURE INFORMATION: Exam: US Chest, Pleural Space Exam date and time: 03/26/2020 2:37 PM Age: 59 years old Clinical indication: Abnormal findings; Abnormal radiologic exam of lung or chest; Additional info: Sampling for culture of R pleural effusion TECHNIQUE: Imaging protocol: Real time ultrasound of the chest was performed with image documentation. Exam focused on the pleural space. COMPARISON: CT Chest without contrast 03/25/2020 2:03 AM FINDINGS: Pleural space: Minimal free fluid in the right pleural space. IMPRESSION: Minimal right pleural effusion. Electronically signed by: Raymundo Brunner On 03/26/2020 18:03:35 PM
[2020-03-26] MEDS ORDERED: VANCOMYCIN HCL 1,000 MG, VIAL MATE ADAPTER 1 EACH in D5W 250 ML IV ONE (20:00)
[2020-03-26 20:30] VITALS: BP 145/79
[2020-03-27] VITALS (7 sets, daily range): BP systolic 126–162; BP diastolic 72–78
[2020-03-27] MEDS: VANCOMYCIN HCL 750 MG, VIAL MATE ADAPTER 1 EACH in D5W 250 ML IV SCH ×3 (04:32→21:24)
[2020-03-27] MEDS: LEVOTHYROXINE 75MCG TABLET (0.075MG) PO SCH (05:33)
[2020-03-27] MEDS: IBUPROFEN 400 MG TAB PO PRN ×3 (06:22→21:24)
[2020-03-27 06:37] LABS: HEMATOCRIT 28.3 % (36.0-47.0); HEMOGLOBIN 8.9 g/dl (12.0-15.5); MEAN CORPUSCULAR HEMOGLOBIN 26.5 pg (27.0-33.0); MEAN CORPUSCULAR HGB CONC 31.4 g/dl (32.0-36.5); MEAN CORPUSCULAR VOLUME 84.2 fl (80.0-96.0); PLATELET COUNT, AUTOMATED 163 10^3/uL (150-450); RED BLOOD COUNT 3.36 10^6/uL (4.00-5.40); WHITE BLOOD COUNT 7.7 10^3/uL (4.0-10.0)
[2020-03-27 07:10] LABS: ALBUMIN 2.2 GM/DL (3.2-5.2); ALT/SGPT 7 U/L (12-78); BILIRUBIN,TOTAL 0.6 MG/DL (0.2-1.0); BLOOD UREA NITROGEN 7 MG/DL (7-18); CALCIUM LEVEL 8.4 MG/DL (8.5-10.1); CARBON DIOXIDE LEVEL 21 MEQ/L (21-32); CHLORIDE LEVEL 111 MEQ/L (98-107); CREATININE FOR GFR 0.53 MG/DL (0.55-1.30); GLOMERULAR FILTRATION RATE > 60.0 (>51); GLUCOSE, FASTING 124 MG/DL (70-100); POTASSIUM SERUM 2.9 MEQ/L (3.5-5.1); SODIUM LEVEL 139 MEQ/L (136-145); TOTAL PROTEIN 5.5 GM/DL (6.4-8.2)
[2020-03-27] MEDS: IPRATROPIUM 0.5MG/ALBUTEROL 2.5MG INH SOL UD 3ML (DUONEB) NEB SCH ×3 (07:30→19:55)
[2020-03-27 07:38] LABS: CK-MB VALUE MASS < 1.0 NG/ML (<3.6); CPK CREATINE PHOSPHOKINASE 32 U/L (26-192); MB/CK RELATIVE INDEX 3.12 (< OR =4); TROPONIN I < 0.02 NG/ML (< 0.10)
[2020-03-27] MEDS ORDERED: POTASSIUM CHLORIDE 10 MEQ SR TABLET PO ONE ×2 (08:00→10:00)
--- NOTE | 2020-03-27 08:17 | CR ---
DATE OF CONSULTATION: 03/26/2020 REASON FOR CONSULTATION: The patient is seen at the request of Dr. Ojeda for pleural effusion accompanied with fever. HISTORY OF PRESENT ILLNESS: The patient is a 59-year-old white female who was first diagnosed with moderately to poorly differentiated adenocarcinoma in 2016 where she was found to have a 6 x 9 cm mass which occupied the entire right upper hemithorax. She underwent 6700 Gy of radiation therapy and also underwent concurrent chemotherapy. She was negative for EGFR as well as ALK but did show a low expression of PD-L1. Her chemotherapy consisted of cisplatin and etoposide and was then switched to Durvalumab as immunotherapy. I have been following her since 2017 when she was first referred to me for a small pericardial effusion which was completely asymptomatic. She was followed until July of [address] scan performed on 06/29/2019 showed an increase in her pericardial effusion and an increase in her right pleural effusion. She then underwent a pericardiocentesis with drainage of 400 mL of fluid which was not malignant but exudative and predominantly lymphocytic. Pathology cell block did not show any overt malignancy and neither did the cytology. She did well up until now when two days ago she developed a fever of 103. She felt feverish with chills and took her temperature. Along with the fever and chills, she felt right hip pain. She was not complaining of shortness of breath and at the time that she first discovered her fever, she was not complaining of any chest pain. She was admitted to the hospital with hypotension with a blood pressure in the high 80s and it was thought to represent a septic picture. She was given fluid and antibiotics which consisted of Vancomycin and Zosyn. It was first thought that her fever and sepsis was possibly a urinary tract infection. Soon after she was admitted to the hospital and after she was fluid resuscitated, she began to complain of chest pain on the right side which has increased and is exacerbated by taking a deep breath and deep breathing. Prior to being admitted to the hospital, she had no change in her breathing patterns. She does not feel short of breath now. Most significantly over the last few months, she has lost about 15 pounds. She attributes that to having her teeth removed for dental hygienic reasons. She states that she does not eat as much as she used to eat. Most significant however is that she complains of coughing and choking when she eats. She usually brings up clear to white sputum but it has turned to yellow. She has had no hemoptysis. PAST MEDICAL HISTORY: Chronic obstructive pulmonary disease (COPD), the above adenocarcinoma, hypothyroidism, former tobacco abuse, the above pericardial effusion. PAST SURGERIES: section in the remote past, right shoulder surgery in the remote past and placement of tympanic tubes in the remote past. TRAVEL HISTORY: She has traveled to [place] and to the [facility] in 2016, to [place] and [place]. EXPOSURES: No dogs or birds but does have a cat. 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 There may be a history of asbestos exposure in the remote past when they took out wall board from her home which was marked as asbestos. HABITS: She is a former smoker of about three quarters of a pack a day for 30 years. Alcohol: Rarely consumes. Illicit drugs: None. FAMILY HISTORY: Father secondary to pancreatic cancer and mother to lung cancer. REVIEW OF SYSTEMS: Constitutional: See HPI. Has weight loss and fever and chills. Eyes without diplopia, without amaurosis fugax, without prior jaundice. Mouth is edentulous. Respiratory: See HPI. Cardiac: Without prior myocardial infarctions. Denies anginal type pain or hypertension. There is no orthopnea or paroxysmal nocturnal dyspnea. She has not noted any peripheral edema. GI: Without nausea, vomiting, diarrhea, constipation, melena, hematochezia, or hematemesis. : Without hematuria, dysuria, or prior history of renal stones. Endocrine: Has hypothyroidism but no diabetes. Neurologic: Without paresthesias, paralyses, or prior seizures. Psychiatric: Without pathologic anxiety, depression, or psychoses. Hematologic: Without prolonged bleeding times. PHYSICAL EXAMINATION: General: Well developed underweight white female lying comfortably in no acute distress. Vital signs: Temperature is 101.6 with a heart rate of 98 with a regular rate and rhythm, respiratory rate of 18 without the use of accessory muscles, 99% saturated on room air. Her blood pressure is 127/71. HEENT: Eyes: Pupils equal, round and reactive to light. Extraocular motions are intact. Sclerae are anicteric. Nose without deformity. Mouth shows her to be edentulous. Mucous membranes are pink and moist without thrush. Lips and commissures are without lesions. Neck is supple. She does have jugular venous distention at 30 degrees up to the angle of the jaw. She has 2+ carotids without bruits. There is no thyromegaly or lymphadenopathy. There is no subcutaneous emphysema. Lungs show markedly decreased breath sounds on the right with a dull percussion note throughout the entire chest. She does not have any chest wall tenderness. Left lung shows some occasional rhonchi most of which cleared with cough. Cardiac exam is without murmurs, clicks, gallops, or rubs. I cannot feel her PMI. S1, S2 are normal. In particular I do not hear a pericardial friction rub. Abdomen is soft, nontender except in the right upper quadrant where she is tender to deep palpation. There is no rebound tenderness. There is no CVA tenderness. Bowel sounds are positive. Extremities: No pretibial edema, no calf tenderness, no differential swelling of the upper extremities. Skin is warm and dry and perfused without cyanosis or mottling including that of nailbeds and knees. Hands are without edema and without splinter hemorrhages or subcutaneous nodules. Neuro shows CN II-XII intact with gross motor, gross sensation intact. Gait is not tested. Psychiatric shows her to be awake and alert, oriented times three with appropriate mood and affect and conversational. LABORATORY DATA: Her white count today is 7.9. On admission it was 11.8. Hemoglobin and hematocrit are 9.2 and 29.7 slightly down from 10.3 and 32.9 which can be explained by hemodilution. Platelet count is 142 and stable. Her indices show normal MCV. Chemistries show essentially electrolytes with a marginally low total CO2 of 20. BUN and creatinine are 10 and 0.62. Her calcium is 8.1 with a corresponding albumin of 2.3. AST and ALT are normal. Her lactic acid on admission was only 1.1. Urinalysis showed 2+ urine protein, 1+ ketones, 1+ blood and 4+ urobilinogen. It is negative for leukocyte esterase. It should be noted that her serum total bilirubin was only 0.7. I do not see a COVID panel reported. IMAGING DATA: Her chest CT done on 03/25/2020 shows a pleural effusion somewhat loculated but which is absolutely unchanged from her CT of 01/02/2020. She has underlying radiation lung destruction with a completely shriveled up lung with the fluid occupying the empty space. She has a slight shift to the left. Her pericardial effusion is unchanged since 01/02/2020 with a very small right-sided effusion. Her left adrenal has a normal configuration. I cannot see her right adrenal. The left lung shows almost normal-looking parenchyma. I do not see emphysematous disease in the left lung. There is just a little bit of viable lung tissue in the right upper hemithorax. Almost all the rest of her lung is completely destroyed with radiation. IMPRESSION: 1. Loculated pleural effusion. 2. Fever of unknown origin. 3. History of pericarditis and pericardial effusion, nonmalignant. 4. Right hip pain. 5. Chronic obstructive pulmonary disease (COPD). PLAN DISCUSSION: The pleural effusion is absolutely unchanged from her chest CT in December. However, since coming into the hospital she feels pain on that side and this may represent infected fluid space, i.e. an empyema. I am not completely convinced of that but I have recommended that a thoracentesis be undertaken for sampling measures only. If it needs draining, I will have to drain it with a chest tube if it comes back infected. I think she has an element of aspiration as she chokes every time she eats. While there is no evidence of aspiration pneumonia on the left, she could certainly have it on the right considering that almost all her entire right lung is radiation destroyed with bronchiectasis. When I first took her history I thought that perhaps the fever and the hip pain were related but it was probably more myalgia from the fever. Endocarditis is also on the table being an insidious protean disease. I would recommend that we also obtain an echocardiogram. I will follow along with you. RADHA
[2020-03-27] MEDS: ENOXAPARIN 40MG/0.4ML SYRINGE (J1650 PER 10MG) SC SCH (08:40)
[2020-03-27] MEDS: guaiFENesin ER 600 MG TAB PO SCH ×3 (08:40→21:24)
[2020-03-27] MEDS: FLUTICASONE PROP 0.05% NASAL SPRAY 16 GM (FLONASE) NARES SCH (08:43)
--- NOTE | 2020-03-27 10:14 | IPNPDOC ---
Text Note Date of Service The patient was seen on 03/27/20. NOTE Subjective: -Persistent fevers, last was at midnight -now reporting some left sided pain since yesterday. None this morning however. Interim history: -No thoracentesis was performed yesterday -Requested consultation of her oncologist -Consulted Dr. Harman for potential empyema who recommended thora for sampling and studies of fluid but was not successful -Pip/tazo was discontinued because patient reported feeling poorly when she gets it and suspected that her fevers were tied to it. Switched to cefepime, and continued vanc -Sputum gramstain showing GPCs in clusters -admission BCx were negative Objective: VITAL SIGNS: HDS, saturating well on room air GENERAL: cachectic, chronically ill appearing, alert and oriented x 3 HEENT: PERRLA, EOMI, Oral mucous membranes are moist without lesions NECK: The patient has no noted JVD. No adenopathy is appreciated. CHEST/LUNGS: There is diminished breath sounds at RLL and RML. HEART: Regular rate and rhythm. No murmurs, rubs, or gallops are appreciated. ABDOMEN: Normoactive sounds, soft, NTND EXTREMITIES: No peripheral edema. There is no focal long bone tenderness or deformity. SKIN: The patients skin is warm and dry, without rashes or lesions. PSYCHIATRIC: AAO x 3, normal mood/affect NEUROLOGIC: CN2-12 intact. moving all extremities, speech clear LABORATORY DATA: See below. Reviewed. WBC 7.7 hgb 8.9 Platelets 103 IMAGING: CXR: FINDINGS: Lungs: Apparent spiculated mass in the medial aspect of the right upper lobe measures approximately 3.3 x 4.3 cm. Left lung clear. Pleural space: Loculated moderate size right pleural effusion. Heart/Mediastinum: Unremarkable. No cardiomegaly. Bones/joints: Unremarkable. IMPRESSION: 1. Apparent spiculated mass in the medial aspect of the right upper lobe measures approximately 3.3 x 4.3 cm. 2. Loculated moderate size right pleural effusion. CHEST CT: FINDINGS: Lungs: Right upper lobe consolidation with some internal bronchiectasis and elevation of the right hemidiaphragm. Minimal infiltrate and atelectasis is noted in the remaining aerated right lung base which is similar to slightly increased since the prior study. The right lung consolidation is similar. Pleural space: Minimal left pleural effusion. Mild loculated right pleural effusion anteriorly. Heart: Unremarkable. No cardiomegaly. No pericardial effusion. Aorta: Unremarkable. No aortic aneurysm. Lymph nodes: Unremarkable. No enlarged lymph nodes. Bones/joints: Unremarkable. No acute fracture. Soft tissues: Unremarkable. IMPRESSION: 1. Minimal left pleural effusion which is slightly increased since 01/02/2020. 2. Right upper lobe atelectasis and consolidation with bronchiectasis which is similar to prior study. There is adjacent loculated right pleural effusion anteriorly which may reflect empyema which is similar. 3. There is minimal scattered infiltrate and atelectasis in the remaining aerated right lung which is similar to slightly increased. LAST ECHO 11/2019: LVEF 50-55% IMPRESSION: 1. Technically limited study due to poor acoustic window. 2. Low normal global left ventricular systolic function. There are some features of grade 2 left ventricular diastolic dysfunction. 3. Aortic valve sclerosis with moderate aortic regurgitation and trivial aortic stenosis. 4. Small to moderate pericardial effusion noted, no evidence of cardiac tamponade. Pleural effusion also noted. MICROBIOLOGY: Please see below. 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 PLAN: 1. Severe sepsis with hypotension: source of infection likely pulmonary with c/f possible empyema -f/u blood cultures, SCx -CT demonstrates stable mass/consolidation however with R loculated effusion c/f empyema, reached out to Dr. Harman --> officially consulted, recommended sampling thoracentesis for culture and studies --> thora was unfortunately unsuccessful. Will f/u with Dr. Harman -Will continue empiric vanc and cefepime -Ibuprofen/Tylenol for fevers PRN -UA was bland -abdominal exam is benign with possible ileus but clinically appears at baseline -duonebs Q6H -mucinex 1200mg BID 2. Elevated BNP: BNP 1043 -Patient does have a history of grade 2 diastolic dysfunction. Does not appear to be clinically fluid overloaded at this time. -Caution with fluid resuscitation 3. Adenocarcinoma of the lung: Was last seen by medical oncology 03/17/20 -Recommended PET CT follow-up, has yet to be done -Consulting Dr. Meade today 4. Hypothyroidism: -TSH, T4 within normal limits -Continue home levothyroxine dose DVT ppx: Lovenox Dispo: inpatient VS,Fishbone, I+O VS, Fishbone, I+O Laboratory Tests 03/27/20 06:13 Vital Signs Date Time Temp Pulse Resp B/P (MAP) Pulse Ox O2 Delivery O2 Flow Rate FiO2 03/27/20 06:00 98.6 96 20 140/78 (98) 95 Room Air I&O- Last 24 Hours up to 6 AM 03/27/20 06:00 Intake Total 1370 ml Output Total 1100 ml Balance 270 ml EDSON WAGNER MD Mar 27, 2020 07:34
[2020-03-27] MEDS: CEFEPIME HCL 1 GM in D5W MINI-BAG PLUS 50 ML IV SCH (11:37)
[2020-03-27] MEDS ORDERED: SODIUM BICARBONATE 8.4% INJ 50MEQ 50 ML VIAL As Ordered ONE (15:37)
[2020-03-27 16:44] LABS: PH BODY FLUID 7.144 UNITS (NOT ESTABLISHED); SOURCE, BODY FLUID pH PLEURAL
[2020-03-27 17:04] LABS: APPEARANCE, BODY FLUID HAZY (CLEAR); PLEURAL FL COLOR YELLOW (COLORLESS); SOURCE, BODY FLUID PLEURAL
[2020-03-27 17:50] LABS: AMYLASE, BODY FLUID 39 U/L (NOT ESTABLISHED); CHOLESTEROL, BODY FLUID 84 MG/DL (NOT ESTABLISHED); LDH, BODY FLUID 1587 U/L (NOT ESTABLISHED); SOURCE, BODY FLUID ALBUMIN PLEURAL; SOURCE, BODY FLUID AMYLASE PLEURAL; SOURCE, BODY FLUID CHOL PLEURAL; SOURCE, BODY FLUID GLUCOSE PLEURAL; SOURCE, BODY FLUID LDH PLEURAL; SOURCE, BODY FLUID TOT PROTEIN PLEURAL; SOURCE, BODY FLUID TRIG PLEURAL; TOTAL PROTEIN, BODY FLUID 3.8 G/DL (NOT ESTABLISHED); TRIGLYCERIDE, BODY FLUID 24 MG/DL (NOT ESTABLISHED)
[2020-03-28] VITALS (7 sets, daily range): BP systolic 125–140; BP diastolic 63–70
[2020-03-28] MEDS: IPRATROPIUM 0.5MG/ALBUTEROL 2.5MG INH SOL UD 3ML (DUONEB) NEB SCH ×4 (00:01→19:42)
[2020-03-28] MEDS: CEFEPIME HCL 1 GM in D5W MINI-BAG PLUS 50 ML IV SCH (00:23)
[2020-03-28] MEDS: VANCOMYCIN HCL 750 MG, VIAL MATE ADAPTER 1 EACH in D5W 250 ML IV SCH ×2 (05:31→17:09)
[2020-03-28] MEDS: LEVOTHYROXINE 75MCG TABLET (0.075MG) PO SCH (06:00)
[2020-03-28 06:38] LABS: HEMATOCRIT 25.7 % (36.0-47.0); HEMOGLOBIN 7.9 g/dl (12.0-15.5); MEAN CORPUSCULAR HEMOGLOBIN 26.1 pg (27.0-33.0); MEAN CORPUSCULAR HGB CONC 30.7 g/dl (32.0-36.5); MEAN CORPUSCULAR VOLUME 84.8 fl (80.0-96.0); PLATELET COUNT, AUTOMATED 179 10^3/uL (150-450); RED BLOOD COUNT 3.03 10^6/uL (4.00-5.40); WHITE BLOOD COUNT 4.1 10^3/uL (4.0-10.0)
[2020-03-28 07:09] LABS: ALBUMIN 1.9 GM/DL (3.2-5.2); ALT/SGPT 7 U/L (12-78); BILIRUBIN,TOTAL 0.4 MG/DL (0.2-1.0); BLOOD UREA NITROGEN 7 MG/DL (7-18); CALCIUM LEVEL 8.3 MG/DL (8.5-10.1); CARBON DIOXIDE LEVEL 20 MEQ/L (21-32); CHLORIDE LEVEL 115 MEQ/L (98-107); CREATININE FOR GFR 0.52 MG/DL (0.55-1.30); GLOMERULAR FILTRATION RATE > 60.0 (>51); GLUCOSE, FASTING 93 MG/DL (70-100); SODIUM LEVEL 144 MEQ/L (136-145)
--- NOTE | 2020-03-28 08:43 | IPN ---
DATE: 03/27/2020 SUBJECTIVE: I was surprised to see that when the patient was taken down to x- ray yesterday for a sampling of her loculated pleural effusion, that none was seen. Therefore, no sampling took place. I have gone over the films with both radiologists and we all agree that there should be plenty of fluid there and what probably happened was that the fluid looked more posteriorly when it was really more anterior. She is going to go back down today for a proper sampling. OBJECTIVE: VITAL SIGNS: T-max 100.4, heart rate ranges between 96 and 118, respiratory rate varies between 18 to 24 without the use of accessory muscles. She is 97 to 95% saturated on room air. Blood pressure is ranging between 145/79 to 101/63. PHYSICAL EXAMINATION: LUNGS: Her left lung shows normal vesicular sounds with a full percussion note. Right lung shows dullness throughout with bronchophony particularly in the upper hemithorax. CARDIAC: Without murmurs, clicks, gallops or murmurs. I cannot feel her PMI. S1, S2 are normal. ABDOMEN: Soft, nontender, bowel sounds are positive. She is slightly tender in the epigastrium however to deep palpation. There is no CVA tenderness. I do not appreciate hepatomegaly. EXTREMITIES: Show no pretibial edema. No calf tenderness. No differential swelling of the upper extremities. SKIN: Warm, dry and perfused without cyanosis or mottling including nailbeds and knees. NECK: Supple, there is no jugular venous distention. Trachea is midline. No subcutaneous emphysema. MOUTH: Shows her mucous membranes to be pink and moist. Lips and gums without lesions. No thrush. EYES: Show her pupils to be equal and reactive, extraocular muscles intact, sclerae nonicteric. NEURO: Shows II-XII intact, normal gross motor, gross sensation intact. Gait is not tested. PSYCHIATRIC: Shows her to be awake, alert, and oriented x3 with appropriate mood and affect, conversational. LABORATORY DATA: White count today 7.7 with hemoglobin/hematocrit 8.9 and 28.3 down from 9.2 and 29.7 yesterday, platelet count 163,000 and stable. Electrolytes show potassium 2.9. The remainder are essentially normal. BUN/creatinine 7 and 0.53 respectively with glucose 124, calcium 8.4 and corresponding albumin 2.2. IMAGING STUDIES: Her chest x-ray today shows essentially no change. The entire right hemithorax is opacified. There is a little bit of aeration in the upper extent of the hemithorax on the right. IMPRESSION: 1. Fever of unknown origin. 2. Loculated pleural effusion. 3. History of pericarditis with pericardial effusion, non-malignant. 4. Right hip pain. 5. COPD. PLAN AND DISCUSSION: As noted in the introduction, she is going to go back down for sampling of her pleural fluid. Should this prove to be infected, I will have to drain it. It would not be unexpected that this could be infected from an underlying pneumonia caused by the severe radiation destruction of her lung with bronchiectasis. I do not see a report of an echocardiogram in the chart. It was my suggestion yesterday that an echo be obtained. Endocarditis has got to be a possibility. I will request the echo myself. RADHA
[2020-03-28] MEDS: FLUTICASONE PROP 0.05% NASAL SPRAY 16 GM (FLONASE) NARES SCH ×2 (09:00→09:05)
[2020-03-28] MEDS: guaiFENesin ER 600 MG TAB PO SCH ×3 (09:00→20:12)
[2020-03-28] MEDS: ENOXAPARIN 40MG/0.4ML SYRINGE (J1650 PER 10MG) SC SCH ×2 (09:00→09:05)
[2020-03-28] MEDS ORDERED: FERROUS SULFATE 325MG TAB PO SCH (11:45)
--- NOTE | 2020-03-28 11:46 | IPNPDOC ---
Text Note Date of Service The patient was seen on 03/28/20. NOTE Subjective: -Last low grade was 100.3 at 3PM -No other complaints at this time Interim history: -Thoracentesis was performed yesterday -Sputum gram stain showing GPCs in clusters -Pleural fluid gram stain showing many WBCs, no organisms, cultures pending -admission BCx were negative Objective: VITAL SIGNS: HDS, saturating well on room air GENERAL: cachectic, chronically ill appearing, alert and oriented x 3 HEENT: PERRLA, EOMI, Oral mucous membranes are moist without lesions NECK: The patient has no noted JVD. No adenopathy is appreciated. CHEST/LUNGS: Diminished RLL and RML. Otherwise clear without wheezing or rhonchi HEART: Regular rate and rhythm. No murmurs, rubs, or gallops are appreciated. ABDOMEN: Normoactive sounds, soft, NTND EXTREMITIES: No peripheral edema. There is no focal long bone tenderness or deformity. SKIN: The patients skin is warm and dry, without rashes or lesions. PSYCHIATRIC: AAO x 3, normal mood/affect NEUROLOGIC: CN2-12 intact. moving all extremities, speech clear LABORATORY DATA: See below. Reviewed. WBC 4.1 hgb 7.9 Platelets 179 na 144 K 3 Cr 0.52 Pleural fluid analysis: cell count -2578, with 73.6% PMNs glucose <1 pH 7.144 LDH 1587 IMAGING: CXR: FINDINGS: Lungs: Apparent spiculated mass in the medial aspect of the right upper lobe measures approximately 3.3 x 4.3 cm. Left lung clear. Pleural space: Loculated moderate size right pleural effusion. Heart/Mediastinum: Unremarkable. No cardiomegaly. Bones/joints: Unremarkable. IMPRESSION: 1. Apparent spiculated mass in the medial aspect of the right upper lobe measures approximately 3.3 x 4.3 cm. 2. Loculated moderate size right pleural effusion. CHEST CT: FINDINGS: Lungs: Right upper lobe consolidation with some internal bronchiectasis and elevation of the right hemidiaphragm. Minimal infiltrate and atelectasis is noted in the remaining aerated right lung base which is similar to slightly increased since the prior study. The right lung consolidation is similar. Pleural space: Minimal left pleural effusion. Mild loculated right pleural effusion anteriorly. Heart: Unremarkable. No cardiomegaly. No pericardial effusion. Aorta: Unremarkable. No aortic aneurysm. Lymph nodes: Unremarkable. No enlarged lymph nodes. Bones/joints: Unremarkable. No acute fracture. Soft tissues: Unremarkable. IMPRESSION: 1. Minimal left pleural effusion which is slightly increased since 01/02/2020. 2. Right upper lobe atelectasis and consolidation with bronchiectasis which is similar to prior study. There is adjacent loculated right pleural effusion anteriorly which may reflect empyema which is similar. 3. There is minimal scattered infiltrate and atelectasis in the remaining aerated right lung which is similar to slightly increased. LAST ECHO 11/2019: LVEF 50-55% IMPRESSION: 1. Technically limited study due to poor acoustic window. 2. Low normal global left ventricular systolic function. There are some features of grade 2 left ventricular diastolic dysfunction. 3. Aortic valve sclerosis with moderate aortic regurgitation and trivial aortic stenosis. 4. Small to moderate pericardial effusion noted, no evidence of cardiac tamponade. Pleural effusion also noted. MICROBIOLOGY: Please see below. 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 . PLAN: 1. Severe sepsis with hypotension: source of infection likely pulmonary with c/f possible empyema -f/u blood cultures, SCx -CT demonstrates stable mass/consolidation however with R loculated effusion c/f empyema, reached out to Dr. Harman --> officially consulted, recommended sampling thoracentesis for culture and studies --> thora was done and analysis c/w empyema --> Dr. Harman planning for pigtail catheter this AM, transfer to PCU and switch from cefepime to ceftriaxone for better pulm penetrance -Dr. Harman onboard, appreciate recommendations -Will continue empiric vanc and ceftriaxone -Ibuprofen/Tylenol for fevers PRN -UA was bland -abdominal exam remains benign -duonebs Q6H -mucinex 1200mg BID 2. Elevated BNP: BNP 1043 -Patient does have a history of grade 2 diastolic dysfunction. Does not appear to be clinically fluid overloaded at this time. -Caution with fluids 3. Adenocarcinoma of the lung: Was last seen by medical oncology 03/17/20 -Recommended PET CT follow-up, has yet to be done 4. Hypothyroidism: -TSH, T4 within normal limits -Continue home levothyroxine dose 5. Anemia: acute on chronic, without evidence of acute blood loss -hgb this AM is 7.9 and on discussion with Ms. Elder, she refused blood transfusion at this time. will monitor daily CBC and readdress with her if the decline is persistent -was recently severely iron deficient, will defer supplements while infected as bacteria are siderophores and check ferritin for stores with tomorrow's AM labs for planning of treatment post infection. DVT ppx: Lovenox Dispo: inpatient VS,Fishbone, I+O VS, Fishbone, I+O Laboratory Tests 03/28/20 06:14 Vital Signs Date Time Temp Pulse Resp B/P (MAP) Pulse Ox O2 Delivery O2 Flow Rate FiO2 03/28/20 06:00 99.0 100 18 126/70 (88) 98 Room Air I&O- Last 24 Hours up to 6 AM 03/28/20 05:59 Intake Total 1500 ml Output Total 625 ml Balance 875 ml EDSON WAGNER MD Mar 28, 2020 08:44
[2020-03-28] MEDS ORDERED: POTASSIUM CHLORIDE 10 MEQ SR TABLET PO ONE ×2 (12:00→14:00)
[2020-03-28] MEDS ORDERED: IBUPROFEN 800 MG TAB PO ONE (12:00)
[2020-03-28] MEDS: cefTRIAXone SOD 2 GM in D5W MINI-BAG PLUS 50 ML IV SCH (12:03)
[2020-03-28] MEDS ORDERED: cefTRIAXone SOD 2 GM VIAL (J0696 PER 250MG) IM SCH (13:00)
[2020-03-28] MEDS ORDERED: SODIUM BICARBONATE 8.4% INJ 50MEQ 50 ML VIAL As Ordered ONE (14:24)
[2020-03-28] MEDS ORDERED: LIDOCAINE 1% MDV 20ML VIAL As Ordered ONE (14:25)
--- NOTE | 2020-03-28 15:47 | ECHO ---
DATE OF PROCEDURE: 03/27/2020 Age: 59 Gender: Female Height: Weight: PATIENT LOCATION: Room 4227 REFERRING PHYSICIAN: Mark Bunn DO REASON FOR STUDY: Sepsis. 2D MEASUREMENTS: IVS 0.6 cm LV 3.6cm LVPW 0.6 cm LA 2.1 cm Aorta 2.3 cm IVC 1.3 cm DOPPLER MEASUREMENT Peak velocity across the aortic valve 1.6 m/s Peak velocity across the LVOT 1.0 m/s Mitral E 0.83 Mitral A 0.61 with a ratio of 1.4 Maximal tricuspid valve velocity 2.7 m/s 2D COMMENTS: 1. Normal left ventricular size and wall thickness. Low normal global left ventricular systolic function in limited views. 2. Normal left atrium. Normal right atrium and left ventricle. 3. Normal aortic root. 4. Trace pericardial effusion was noted. No evidence of cardiac tamponade. The is consistent with minimal right pleural effusion. 5. Mildly calcified aortic valve with normal leaflet excursion. Mildly calcified mitral annulus with normal anterior mitral valve leaflet motion. Normal tricuspid valve. The pulmonic valve and proximal pulmonary artery branches were not well visualized. 6. The inferior vena cava was normal in size. Central venous pressure is most likely normal. 7. Doppler low normal global left ventricular systolic function. Not mentioned above, there are features consistent with grade 2 left ventricular systolic dysfunction. 8. Aortic valve sclerosis with mild aortic regurgitation, but no aortic stenosis. 9. Mitral annulus calcification with mild mitral regurgitation. 10. Mild tricuspid regurgitation with mild pulmonary hypertension. There was a peak velocity of 2.7 msec across the tricuspid valve. 11. Trace pericardial effusion. No evidence of cardiac tamponade. 12. This was compared with most recent echocardiogram of 12/07/2019 and at that time, moderate pericardial effusion was noted. MTDD
[2020-03-28] MEDS: IBUPROFEN 800 MG TAB PO PRN (17:09)
[2020-03-28] MEDS: HYDROmorphone 2 MG TAB PO PRN ×2 (19:51→23:33)
[2020-03-28] MEDS: KETOROLAC 30 MG/ML 1ML VIAL IV SCH (23:28)
[2020-03-29] VITALS: BP 127/82
[2020-03-29] MEDS: IPRATROPIUM 0.5MG/ALBUTEROL 2.5MG INH SOL UD 3ML (DUONEB) NEB SCH ×4 (01:38→19:36)
[2020-03-29 04:00] VITALS: BP 110/57
[2020-03-29] MEDS: VANCOMYCIN HCL 750 MG, VIAL MATE ADAPTER 1 EACH in D5W 250 ML IV SCH ×2 (05:00→16:25)
[2020-03-29] MEDS: LEVOTHYROXINE 75MCG TABLET (0.075MG) PO SCH (05:00)
[2020-03-29] MEDS: KETOROLAC 30 MG/ML 1ML VIAL IV SCH ×4 (05:01→22:07)
[2020-03-29] MEDS: HYDROmorphone 2 MG TAB PO PRN ×4 (05:20→19:51)
[2020-03-29] MEDS: IPRATROPIUM 0.5MG/ALBUTEROL 2.5MG INH SOL UD 3ML (DUONEB) NEB PRN ×2 (05:37→18:24)
[2020-03-29 05:56] LABS: HEMATOCRIT 27.1 % (36.0-47.0); HEMOGLOBIN 8.2 g/dl (12.0-15.5); MEAN CORPUSCULAR HEMOGLOBIN 25.7 pg (27.0-33.0); MEAN CORPUSCULAR HGB CONC 30.3 g/dl (32.0-36.5); PLATELET COUNT, AUTOMATED 200 10^3/uL (150-450); RED BLOOD COUNT 3.19 10^6/uL (4.00-5.40); WHITE BLOOD COUNT 2.9 10^3/uL (4.0-10.0)
[2020-03-29] MEDS: guaiFENesin ER 600 MG TAB PO SCH ×2 (06:27→20:42)
[2020-03-29] MEDS: ENOXAPARIN 40MG/0.4ML SYRINGE (J1650 PER 10MG) SC SCH (06:27)
[2020-03-29 06:37] LABS: BLOOD UREA NITROGEN 7 MG/DL (7-18); CALCIUM LEVEL 8.5 MG/DL (8.5-10.1); CARBON DIOXIDE LEVEL 22 MEQ/L (21-32); CHLORIDE LEVEL 113 MEQ/L (98-107); FERRITIN 75 NG/ML (8-252); GLOMERULAR FILTRATION RATE > 60.0 (>51); GLUCOSE, FASTING 85 MG/DL (70-100); IRON (FE) 14 UG/DL (50-170); SODIUM LEVEL 142 MEQ/L (136-145)
[2020-03-29 08:00] VITALS: BP 124/69
[2020-03-29] MEDS: FLUTICASONE PROP 0.05% NASAL SPRAY 16 GM (FLONASE) NARES SCH (08:30)
--- NOTE | 2020-03-29 11:46 | IPNPDOC ---
Text Note Date of Service The patient was seen on 03/29/20. NOTE Subjective: -No fevers for over 24h, since 03/27 at 3PM -No other complaints at this time, pain well controlled -had pigtail catheter placed for drainage of R likely empyema yesterday Objective: VITAL SIGNS: HDS, saturating well on room air GENERAL: cachectic, chronically ill appearing, alert and oriented x 3 HEENT: PERRLA, EOMI, Oral mucous membranes are moist without lesions NECK: The patient has no noted JVD. No adenopathy is appreciated. CHEST/LUNGS: Diminished RLL and RML. Otherwise clear without wheezing or rhonchi. Catheter in place, no surrounding erythema HEART: Regular rate and rhythm. No murmurs, rubs, or gallops are appreciated. ABDOMEN: Normoactive sounds, soft, NTND EXTREMITIES: No peripheral edema. There is no focal long bone tenderness or deformity. SKIN: The patients skin is warm and dry, without rashes or lesions. PSYCHIATRIC: AAO x 3, normal mood/affect NEUROLOGIC: CN2-12 intact. moving all extremities, speech clear LABORATORY DATA: See below. Reviewed. WBC 2.9 hgb 8.2 Platelets 200 na 142 K 4 Cr 0.5 Pleural fluid analysis: cell count -2578, with 73.6% PMNs glucose <1 pH 7.144 LDH 1587 IMAGING: CXR: FINDINGS: Lungs: Apparent spiculated mass in the medial aspect of the right upper lobe measures approximately 3.3 x 4.3 cm. Left lung clear. Pleural space: Loculated moderate size right pleural effusion. Heart/Mediastinum: Unremarkable. No cardiomegaly. Bones/joints: Unremarkable. IMPRESSION: 1. Apparent spiculated mass in the medial aspect of the right upper lobe measures approximately 3.3 x 4.3 cm. 2. Loculated moderate size right pleural effusion. CHEST CT: FINDINGS: Lungs: Right upper lobe consolidation with some internal bronchiectasis and elevation of the right hemidiaphragm. Minimal infiltrate and atelectasis is noted in the remaining aerated right lung base which is similar to slightly increased since the prior study. The right lung consolidation is similar. Pleural space: Minimal left pleural effusion. Mild loculated right pleural effusion anteriorly. Heart: Unremarkable. No cardiomegaly. No pericardial effusion. Aorta: Unremarkable. No aortic aneurysm. Lymph nodes: Unremarkable. No enlarged lymph nodes. Bones/joints: Unremarkable. No acute fracture. Soft tissues: Unremarkable. IMPRESSION: 1. Minimal left pleural effusion which is slightly increased since 01/02/2020. 2. Right upper lobe atelectasis and consolidation with bronchiectasis which is similar to prior study. There is adjacent loculated right pleural effusion anteriorly which may reflect empyema which is similar. 3. There is minimal scattered infiltrate and atelectasis in the remaining aerated right lung which is similar to slightly increased. LAST ECHO 11/2019: LVEF 50-55% IMPRESSION: 1. Technically limited study due to poor acoustic window. 2. Low normal global left ventricular systolic function. There are some features of grade 2 left ventricular diastolic dysfunction. 3. Aortic valve sclerosis with moderate aortic regurgitation and trivial aortic stenosis. 4. Small to moderate pericardial effusion noted, no evidence of cardiac tamponade. Pleural effusion also noted. MICROBIOLOGY: Please see below. 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 . PLAN: 1. Severe sepsis with hypotension: source of infection likely pulmonary c/w possible empyema -f/u blood cultures, SCx -CT demonstrates stable mass/consolidation however with R loculated effusion c/f empyema, reached out to Dr. Harman --> officially consulted, recommended sampling thoracentesis for culture and studies --> thora was done and analysis c/w empyema --> s/p pigtail catheter on 03/28, on vanc/ceftriaxone -Dr. Harman onboard, appreciate recommendations -Will continue empiric vanc and ceftriaxone, day 4 of antibiotic therapy -Ibuprofen/Tylenol for fevers PRN -UA was bland -abdominal exam remains benign -duonebs Q6H -mucinex 1200mg BID 2. Elevated BNP: BNP 1043 -Patient does have a history of grade 2 diastolic dysfunction. Does not appear to be clinically fluid overloaded at this time. -Caution with fluids 3. Adenocarcinoma of the lung: Was last seen by medical oncology 03/17/20 -Recommended PET CT follow-up, has yet to be done 4. Hypothyroidism: -TSH, T4 within normal limits -Continue home levothyroxine dose 5. Anemia: acute on chronic, without evidence of acute blood loss -hgb 8.2 -was recently severely iron deficient, will defer supplements while infected as bacteria are siderophores and check ferritin for stores with tomorrow's AM labs for planning of treatment post infection. DVT ppx: Lovenox Dispo: inpatient VS,Fishbone, I+O VS, Fishbone, I+O Laboratory Tests 03/29/20 05:13 Vital Signs Date Time Temp Pulse Resp B/P (MAP) Pulse Ox O2 Delivery O2 Flow Rate FiO2 03/29/20 08:00 98.6 99 20 124/69 (87) 96 Room Air l I&O- Last 24 Hours up to 6 AM 03/29/20 06:00 Intake Total 600 ml Output Total 1495 ml Balance -895 ml EDSON WAGNER MD Mar 29, 2020 09:08
[2020-03-29 12:00] VITALS: BP 156/70
[2020-03-29] MEDS: cefTRIAXone SOD 2 GM in D5W MINI-BAG PLUS 50 ML IV SCH (13:13)
--- NOTE | 2020-03-29 14:02 | REPVR ---
PROCEDURE INFORMATION: Exam: CT Chest Without Contrast Exam date and time: 03/29/2020 12:33 PM Age: 59 years old Clinical indication: Assess pleural effusions, status of loculation. TECHNIQUE: Imaging protocol: Computed tomography of the chest without contrast. Coronal and sagittal reformats were created and reviewed. 3D rendering (Not supervised by radiologist): MIP and/or 3D reconstructed images were created by the technologist. Radiation optimization: All CT scans at this facility use at least one of these dose optimization techniques: automated exposure control; mA and/or kV adjustment per patient size (includes targeted exams where dose is matched to clinical indication); or iterative reconstruction. COMPARISON: CT Chest without contrast 03/25/2020 2:03 AM FINDINGS: Tubes, catheters and devices: Interval placement of a right anterior chest pigtail drainage catheter terminating within the multiloculated right anterior pleural effusion. Lungs: Significantly worsened diffuse interlobular septal thickening, ground-glass opacities and consolidative opacities of the previously aerated portions of the right lung. The previously seen areas of large consolidation and volume loss of the right lung persist. An underlying right lung mass is not excludable. New mild smooth interlobular septal thickening of the left lung. Increased mild left lower lobe posterior basilar atelectasis. New mild ill-defined ground-glass opacities of the left lung. Pleural space: The thick-walled multiloculated right pleural effusion is mildly decreased in size but is not resolved. The multiloculated right anterior pleural effusion currently measures approximately 7.6 x 5.3 x 6.8 cm whereas it previously measured 9.6 x 5.6 x 7.3 cm. Multiple new locules of pneumothorax are present within the multiloculated right anterior pleural effusion, consistent with drain placement. Stable small thick walled right posterior/apical pleural fluid collection. Increased moderate low-attenuation dependently layering left pleural effusion. No left pneumothorax. Heart: Coronary arterial atherosclerotic calcifications are present. Stable small pericardial effusion. Heart size is within normal limits. Mediastinal space: No abnormal esophageal dilation. Pulmonary arteries: The main pulmonary arterial trunk is not enlarged. Aorta: Mild aortic atherosclerosis. No thoracic aortic aneurysm. Lymph nodes: No definitive adenopathy is identified, however evaluation is significantly limited given the noncontrast technique. Gallbladder and bile ducts: Incompletely imaged layering mildly increased attenuation material within the gallbladder suggestive of gallstones or sludge. Bones/joints: No acute osseous abnormality. Soft tissues: Mild diffuse body wall edema is new compared to 03/18/2020. Other findings: Diffuse hypoattenuation of the blood pool suggestive of anemia. IMPRESSION: 1. Interval placement of a drainage catheter within the large multiloculated right anterior pleural effusion. This multiloculated right hydropneumothorax is mildly decreased in size compared to 03/25/2020. Sterile effusion, empyema, and malignant effusion are all in the imaging differential diagnosis. Correlation with pleural fluid analysis is needed. 2. Stable separate small right posterior/apical thick-walled pleural effusion. 3. New/worsened now severe pulmonary interstitial and airspace disease involving the previously aerated portions of the right lung. New mild left lung interstitial and airspace disease. The findings may indicate new pulmonary edema, right greater than left. Pulmonary infection/inflammation is also a consideration. 4. Other stable previously seen multifocal consolidation and volume loss of the right lung. An underlying pulmonary mass is not excludable. 5. Increased moderate left pleural effusion. Increased associated mild left lower lobe atelectasis. 6. New mild diffuse body wall edema suggestive of volume overload. 7. Please see the body of the report for other findings as described. Electronically signed by: Roberto Epstein On 03/29/2020 14:02:01 PM
[2020-03-29 16:00] VITALS: BP 122/64
[2020-03-29] MEDS ORDERED: ALTEPLASE 2MG/2ML VIAL As Ordered ONE (17:42)
[2020-03-29] MEDS ORDERED: ALTEPLASE 2MG/2ML VIAL XX ONE (18:00)
[2020-03-29] MEDS: ACETYLCYSTEINE 20% 4 ML VIAL (200MG/ML) INH SCH (19:23)
[2020-03-29 20:00] VITALS: BP 131/62
[2020-03-29] MEDS ORDERED: HYDROmorphone 2 MG TAB PO ONE (21:45)
[2020-03-30] VITALS (16 sets, daily range): BP systolic 110–144; BP diastolic 56–79; O2SAT 88–100
[2020-03-30] MEDS: IPRATROPIUM 0.5MG/ALBUTEROL 2.5MG INH SOL UD 3ML (DUONEB) NEB SCH ×4 (01:34→20:01)
[2020-03-30] MEDS: HYDROmorphone 2 MG TAB PO PRN ×6 (03:25→23:48)
[2020-03-30 04:17] LABS: HEMATOCRIT 26.8 % (36.0-47.0); HEMOGLOBIN 8.3 g/dl (12.0-15.5); MEAN CORPUSCULAR HEMOGLOBIN 26.3 pg (27.0-33.0); MEAN CORPUSCULAR VOLUME 84.8 fl (80.0-96.0); PLATELET COUNT, AUTOMATED 234 10^3/uL (150-450); RED BLOOD COUNT 3.16 10^6/uL (4.00-5.40); WHITE BLOOD COUNT 4.1 10^3/uL (4.0-10.0)
[2020-03-30 04:36] LABS: BLOOD UREA NITROGEN 8 MG/DL (7-18); CALCIUM LEVEL 8.3 MG/DL (8.5-10.1); CARBON DIOXIDE LEVEL 24 MEQ/L (21-32); CHLORIDE LEVEL 108 MEQ/L (98-107); CREATININE FOR GFR 0.57 MG/DL (0.55-1.30); GLOMERULAR FILTRATION RATE > 60.0 (>51); GLUCOSE, FASTING 104 MG/DL (70-100); POTASSIUM SERUM 3.6 MEQ/L (3.5-5.1); SODIUM LEVEL 139 MEQ/L (136-145)
[2020-03-30] MEDS: LEVOTHYROXINE 75MCG TABLET (0.075MG) PO SCH (06:36)
[2020-03-30] MEDS: VANCOMYCIN HCL 750 MG, VIAL MATE ADAPTER 1 EACH in D5W 250 ML IV SCH ×2 (06:36→17:05)
[2020-03-30] MEDS: KETOROLAC 30 MG/ML 1ML VIAL IV SCH ×4 (06:36→23:49)
[2020-03-30] MEDS: IPRATROPIUM 0.5MG/ALBUTEROL 2.5MG INH SOL UD 3ML (DUONEB) NEB PRN (06:43)
[2020-03-30] MEDS: ACETYLCYSTEINE 20% 4 ML VIAL (200MG/ML) INH SCH ×2 (07:14→20:01)
[2020-03-30] MEDS: ENOXAPARIN 40MG/0.4ML SYRINGE (J1650 PER 10MG) SC SCH (08:46)
[2020-03-30] MEDS: guaiFENesin ER 600 MG TAB PO SCH ×2 (08:46→21:00)
[2020-03-30] MEDS: FLUTICASONE PROP 0.05% NASAL SPRAY 16 GM (FLONASE) NARES SCH (08:47)
--- NOTE | 2020-03-30 10:54 | REPVR ---
PROCEDURE INFORMATION: Exam: XR Chest, 2 Views Exam date and time: 03/30/2020 7:52 AM Age: 59 years old Clinical indication: Chest pain; Additional info: Pleural effusion TECHNIQUE: Imaging protocol: XR of the chest Views: 2 views. COMPARISON: 1. CT - Chest without contrast 03/29/2020 12:24 PM 2. CR - Chest, 2 view PA, Lat 03/29/2020 7:47:36 AM FINDINGS: Tubes, catheters and devices: Oxygen tubing and ECG leads/contacts overlie and partially obscure the anatomy. The right chest pigtail drainage catheter remains present in the right hydropneumothorax. Lungs: Aeration of the right lung appears slightly improved, however only a small portion of the right lung is aerated while the majority of the right lung is again consolidated or atelectatic. Stable mild left basilar atelectasis. Pleural space: The large loculated right anterior hydropneumothorax has decreased fluid component and increased gas component compared to the prior examinations. No left pneumothorax. Stable small left pleural effusion. Heart/Mediastinum: Stable mild rightward mediastinal shift. The cardiac silhouette is again largely obscured by the pulmonary and pleural opacities. Vasculature: Abdominal vascular calcifications. Bones/joints: Unremarkable. IMPRESSION: 1. The large loculated right anterior hydropneumothorax has decreased fluid component and increased gas component compared to 03/29/2020. 2. Slightly improved right lung aeration. 3. Stable small left pleural effusion. Electronically signed by: Roberto Epstein On 03/30/2020 10:54:00 AM
--- NOTE | 2020-03-30 11:24 | ECGEPIP ---
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
[2020-03-30] MEDS ORDERED: SLF 3 ML SYR IV PRN (11:30)
--- NOTE | 2020-03-30 11:55 | IPNPDOC ---
Text Note Date of Service The patient was seen on 03/30/20. NOTE Subjective: -No fevers -had new hypoxemia yesterday after tPA and was placed on 6L, now down to 3L NC -Tachycardic to 100s -Has chest wall discomfort without destinee pleurisy or substernal chest pain, abdominal pain, diarrhea, nausea, emesis Objective: VITAL SIGNS: HDS, saturating well on room air GENERAL: cachectic, chronically ill appearing, alert and oriented x 3 HEENT: PERRLA, EOMI, Oral mucous membranes are moist without lesions NECK: The patient has no noted JVD. No adenopathy is appreciated. CHEST/LUNGS: Diminished RLL and RML, mild expiratory wheeze. Rhonhi on L lung field, no wet crackles. Catheter in place, no surrounding erythema. HEART: Regular rate and rhythm. No murmurs, rubs, or gallops are appreciated. ABDOMEN: Normoactive sounds, soft, NTND EXTREMITIES: No peripheral edema. There is no focal long bone tenderness or deformity. SKIN: The patients skin is warm and dry, without rashes or lesions. PSYCHIATRIC: AAO x 3, normal mood/affect NEUROLOGIC: CN2-12 intact. moving all extremities, speech clear LABORATORY DATA: See below. Reviewed. WBC 4.1 hgb 8.3 Platelets 234 na 139 K 3.6 Cr 0.57 Pleural fluid analysis: cell count -2578, with 73.6% PMNs glucose <1 pH 7.144 LDH 1587 IMAGING: CXR: FINDINGS: Lungs: Apparent spiculated mass in the medial aspect of the right upper lobe measures approximately 3.3 x 4.3 cm. Left lung clear. Pleural space: Loculated moderate size right pleural effusion. Heart/Mediastinum: Unremarkable. No cardiomegaly. Bones/joints: Unremarkable. IMPRESSION: 1. Apparent spiculated mass in the medial aspect of the right upper lobe measures approximately 3.3 x 4.3 cm. 2. Loculated moderate size right pleural effusion. CHEST CT: FINDINGS: Lungs: Right upper lobe consolidation with some internal bronchiectasis and elevation of the right hemidiaphragm. Minimal infiltrate and atelectasis is noted in the remaining aerated right lung base which is similar to slightly increased since the prior study. The right lung consolidation is similar. Pleural space: Minimal left pleural effusion. Mild loculated right pleural effusion anteriorly. Heart: Unremarkable. No cardiomegaly. No pericardial effusion. Aorta: Unremarkable. No aortic aneurysm. Lymph nodes: Unremarkable. No enlarged lymph nodes. Bones/joints: Unremarkable. No acute fracture. Soft tissues: Unremarkable. IMPRESSION: 1. Minimal left pleural effusion which is slightly increased since 01/02/2020. 2. Right upper lobe atelectasis and consolidation with bronchiectasis which is similar to prior study. There is adjacent loculated right pleural effusion anteriorly which may reflect empyema which is similar. 3. There is minimal scattered infiltrate and atelectasis in the remaining aerated right lung which is similar to slightly increased. CT chest 03/29 post R pleural effusion drainage with catheter placement IMPRESSION: 1. Interval placement of a drainage catheter within the large multiloculated right anterior pleural effusion. This multiloculated right hydropneumothorax is mildly decreased in size compared to 03/25/2020. Sterile effusion, empyema, and malignant effusion are all in the imaging differential diagnosis. Correlation with pleural fluid analysis is needed. 2. Stable separate small right posterior/apical thick-walled pleural effusion. 3. New/worsened now severe pulmonary interstitial and airspace disease involving the previously aerated portions of the right lung. New mild left lung interstitial and airspace disease. The findings may indicate new pulmonary edema, right greater than left. Pulmonary infection/inflammation is also a consideration. 4. Other stable previously seen multifocal consolidation and volume loss of the right lung. An underlying pulmonary mass is not excludable. 5. Increased moderate left pleural effusion. Increased associated mild left lower lobe atelectasis. 6. New mild diffuse body wall edema suggestive of volume overload. 7. Please see the body of the report for other findings as described. MICROBIOLOGY: Please see below. 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 . PLAN: 1. Severe sepsis with hypotension: source of infection likely pulmonary c/w possible empyema -f/u blood cultures, SCx -CT demonstrates stable mass/consolidation however with R loculated effusion c/f empyema, reached out to Dr. Harman --> officially consulted, recommended sampling thoracentesis for culture and studies --> thora was done and analysis c/w empyema --> s/p pigtail catheter on 03/28, on vanc/ceftriaxone -Dr. Harman onboard, appreciate recommendations -Will continue empiric vanc and ceftriaxone, day 5 of antibiotic therapy -Ibuprofen/Tylenol for fevers PRN -dilaudid 1Q4HP PO for severe chest wall pain -UA was bland -abdominal exam remains benign -duonebs Q6H -mucinex 1200mg BID 2. Hypoxemic respiratory failure -f/u AM CXR -continue vanc/ceftriaxone -continue duonebs Q6H, mucinex and incentive spirometry -Pigtail still in place, to low suction, Dr. Harman onboard 2. Elevated BNP: BNP 1043 -Patient does have a history of grade 2 diastolic dysfunction. Does not appear to be clinically fluid overloaded at this time. -Caution with fluids 3. Adenocarcinoma of the lung: Was last seen by medical oncology 03/17/20 -Recommended PET CT follow-up, has yet to be done 4. Hypothyroidism: -TSH, T4 within normal limits -Continue home levothyroxine dose 5. Anemia: acute on chronic, without evidence of acute blood loss -hgb 8.2 -was recently severely iron deficient, will defer supplements while infected as bacteria are siderophores and check ferritin for stores with tomorrow's AM labs for planning of treatment post infection. DVT ppx: Lovenox Dispo: inpatient VS,Fishbone, I+O VS, Fishbone, I+O Laboratory Tests 03/30/20 04:06 Vital Signs Date Time Temp Pulse Resp B/P (MAP) Pulse Ox O2 Delivery O2 Flow Rate FiO2 03/30/20 08:14 20 High Flow Cannula 6.0 03/30/20 08:00 97.3 122 116/79 (91) 96 I&O- Last 24 Hours up to 6 AM 03/30/20 06:00 Intake Total 500 ml Output Total 1015 ml Balance -515 ml EDSON WAGNER MD Mar 30, 2020 09:04
[2020-03-30] MEDS: cefTRIAXone SOD 2 GM in D5W MINI-BAG PLUS 50 ML IV SCH (13:03)
[2020-03-30] MEDS: SLF 3 ML SYR IV SCH ×2 (13:05→23:49)
[2020-03-31] VITALS (21 sets, daily range): BP systolic 103–119; BP diastolic 56–78; O2SAT 88–97
[2020-03-31] MEDS: IPRATROPIUM 0.5MG/ALBUTEROL 2.5MG INH SOL UD 3ML (DUONEB) NEB SCH ×4 (01:08→20:15)
[2020-03-31] MEDS: VANCOMYCIN HCL 750 MG, VIAL MATE ADAPTER 1 EACH in D5W 250 ML IV SCH (04:36)
[2020-03-31] MEDS: KETOROLAC 30 MG/ML 1ML VIAL IV SCH ×4 (04:36→23:44)
[2020-03-31 05:28] LABS: HEMATOCRIT 24.2 % (36.0-47.0); HEMOGLOBIN 7.5 g/dl (12.0-15.5); MEAN CORPUSCULAR HEMOGLOBIN 26.1 pg (27.0-33.0); MEAN CORPUSCULAR VOLUME 84.3 fl (80.0-96.0); PLATELET COUNT, AUTOMATED 260 10^3/uL (150-450); RED BLOOD COUNT 2.87 10^6/uL (4.00-5.40); WHITE BLOOD COUNT 3.5 10^3/uL (4.0-10.0)
[2020-03-31] MEDS: LEVOTHYROXINE 75MCG TABLET (0.075MG) PO SCH (05:39)
[2020-03-31] MEDS: SLF 3 ML SYR IV SCH ×3 (05:40→21:00)
[2020-03-31 05:47] LABS: BLOOD UREA NITROGEN 4 MG/DL (7-18); CALCIUM LEVEL 7.9 MG/DL (8.5-10.1); CARBON DIOXIDE LEVEL 25 MEQ/L (21-32); CHLORIDE LEVEL 108 MEQ/L (98-107); CREATININE FOR GFR 0.59 MG/DL (0.55-1.30); GLOMERULAR FILTRATION RATE > 60.0 (>51); GLUCOSE, FASTING 128 MG/DL (70-100); POTASSIUM SERUM 3.5 MEQ/L (3.5-5.1); SODIUM LEVEL 140 MEQ/L (136-145)
[2020-03-31] MEDS: ACETYLCYSTEINE 20% 4 ML VIAL (200MG/ML) INH SCH ×2 (07:17→20:15)
[2020-03-31] MEDS: HYDROmorphone 2 MG TAB PO PRN ×4 (07:59→23:47)
[2020-03-31] MEDS: FLUTICASONE PROP 0.05% NASAL SPRAY 16 GM (FLONASE) NARES SCH (09:00)
[2020-03-31] MEDS: ENOXAPARIN 40MG/0.4ML SYRINGE (J1650 PER 10MG) SC SCH (09:00)
[2020-03-31] MEDS: guaiFENesin ER 600 MG TAB PO SCH ×2 (09:00→21:00)
--- NOTE | 2020-03-31 09:51 | IPNPDOC ---
Text Note Date of Service The patient was seen on 03/31/20. NOTE Subjective: -No fevers -Pain well controlled -Now back on room air -Doing well Objective: VITAL SIGNS: HDS, saturating well on room air GENERAL: cachectic, chronically ill appearing, alert and oriented x 3 HEENT: PERRLA, EOMI, Oral mucous membranes are moist without lesions NECK: The patient has no noted JVD. No adenopathy is appreciated. CHEST/LUNGS: Diminished RLL and RML, no wheeze. Scattered rare rhonchi on L lung field, no crackles. Catheter in place, no surrounding erythema. HEART: Regular rate and rhythm. No murmurs, rubs, or gallops are appreciated. ABDOMEN: Normoactive sounds, soft, NTND EXTREMITIES: No peripheral edema. There is no focal long bone tenderness or deformity. SKIN: The patients skin is warm and dry, without rashes or lesions. PSYCHIATRIC: AAO x 3, normal mood/affect NEUROLOGIC: CN2-12 intact. moving all extremities, speech clear LABORATORY DATA: See below. Reviewed. WBC 3.5 hgb 7.5 Platelets 260 na 140 K 3.5 Cr 0.59 Pleural fluid analysis: cell count -2578, with 73.6% PMNs glucose <1 pH 7.144 LDH 1587 IMAGING: CXR: FINDINGS: Lungs: Apparent spiculated mass in the medial aspect of the right upper lobe measures approximately 3.3 x 4.3 cm. Left lung clear. Pleural space: Loculated moderate size right pleural effusion. Heart/Mediastinum: Unremarkable. No cardiomegaly. Bones/joints: Unremarkable. IMPRESSION: 1. Apparent spiculated mass in the medial aspect of the right upper lobe measures approximately 3.3 x 4.3 cm. 2. Loculated moderate size right pleural effusion. CHEST CT: FINDINGS: Lungs: Right upper lobe consolidation with some internal bronchiectasis and elevation of the right hemidiaphragm. Minimal infiltrate and atelectasis is noted in the remaining aerated right lung base which is similar to slightly increased since the prior study. The right lung consolidation is similar. Pleural space: Minimal left pleural effusion. Mild loculated right pleural effusion anteriorly. Heart: Unremarkable. No cardiomegaly. No pericardial effusion. Aorta: Unremarkable. No aortic aneurysm. Lymph nodes: Unremarkable. No enlarged lymph nodes. Bones/joints: Unremarkable. No acute fracture. Soft tissues: Unremarkable. IMPRESSION: 1. Minimal left pleural effusion which is slightly increased since 01/02/2020. 2. Right upper lobe atelectasis and consolidation with bronchiectasis which is similar to prior study. There is adjacent loculated right pleural effusion anteriorly which may reflect empyema which is similar. 3. There is minimal scattered infiltrate and atelectasis in the remaining aerated right lung which is similar to slightly increased. CT chest 03/29 post R pleural effusion drainage with catheter placement IMPRESSION: 1. Interval placement of a drainage catheter within the large multiloculated right anterior pleural effusion. This multiloculated right hydropneumothorax is mildly decreased in size compared to 03/25/2020. Sterile effusion, empyema, and malignant effusion are all in the imaging differential diagnosis. Correlation with pleural fluid analysis is needed. 2. Stable separate small right posterior/apical thick-walled pleural effusion. 3. New/worsened now severe pulmonary interstitial and airspace disease involving the previously aerated portions of the right lung. New mild left lung interstitial and airspace disease. The findings may indicate new pulmonary edema, right greater than left. Pulmonary infection/inflammation is also a consideration. 4. Other stable previously seen multifocal consolidation and volume loss of the right lung. An underlying pulmonary mass is not excludable. 5. Increased moderate left pleural effusion. Increased associated mild left lower lobe atelectasis. 6. New mild diffuse body wall edema suggestive of volume overload. 7. Please see the body of the report for other findings as described. MICROBIOLOGY: Please see below. 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 . PLAN: 1. Severe sepsis with hypotension: source of infection likely pulmonary c/w p ossible empyema -f/u blood cultures, SCx -CT demonstrates stable mass/consolidation however with R loculated effusion c/f empyema, consulted Dr. Harman --> thora was done and analysis c/w em pyema --> s/p pigtail catheter on 03/28, on vanc/ceftriaxone -Will continue empiric vanc and ceftriaxone, day 6 of antibiotic therapy -Ibuprofen/Tylenol for fevers PRN -dilaudid 1Q4HP PO for severe chest wall pain -UA was bland -abdominal exam remains benign -duonebs Q6H -mucinex 1200mg BID 2. Hypoxemic respiratory failure: resolved -continue vanc/ceftriaxone -continue duonebs Q6H, mucinex and incentive spirometry -Pigtail still in place 2. Elevated BNP: BNP 1043 -Patient does have a history of grade 2 diastolic dysfunction. Does not appear to be clinically fluid overloaded at this time. -Caution with fluids 3. Adenocarcinoma of the lung: Was last seen by medical oncology 03/17/20 -Recommended PET CT follow-up, has yet to be done 4. Hypothyroidism: -TSH, T4 within normal limits -Continue home levothyroxine dose 5. Anemia: acute on chronic, patient thus far has declined blood transfusion, will speak with her on this matter today. -hgb 7.5, ideally would want to replete to at least Hgb >8. Declined blood transfusion at this time, and would rather recheck as it has been clsoe to 8 for the last few days. Will only take blood if she is symptomatic or bleeding. Otherwise prefers iron replacement. -was recently severely iron deficient, will defer supplements while infected as bacteria are siderophores and check ferritin for stores with tomorrow's AM labs for planning of treatment post infection. DVT ppx: Lovenox Dispo: inpatient VS,Von, I+O VS, Von, I+O Laboratory Tests 03/31/20 05:10 Vital Signs Date Time Temp Pulse Resp B/P (MAP) Pulse Ox O2 Delivery O2 Flow Rate FiO2 03/31/20 07:59 20 Room Air 90.0 03/31/20 06:00 94 03/31/20 04:00 97.2 109 109/56 (73) I&O- Last 24 Hours up to 6 AM 03/31/20 05:59 Intake Total 1900 ml Output Total 1510 ml Balance 390 ml EDSON WAGNER MD Mar 31, 2020 08:27
--- NOTE | 2020-03-31 10:12 | REPVR ---
PROCEDURE INFORMATION: Exam: XR Chest, 2 Views Exam date and time: 03/31/2020 9:44 AM Age: 59 years old Clinical indication: Shortness of breath; Additional info: [employer] TECHNIQUE: Imaging protocol: XR of the chest Views: 2 views. COMPARISON: CR Chest, 2 view PA, Lat 03/30/2020 7:42 AM FINDINGS: Tubes, catheters and devices: A right-sided pigtail catheter is again present. Lungs: The right lung is again largely opacified with only minimally aerated portion along the superolateral aspect. The left lung is relatively clear, aside from mild basilar atelectasis. Pleural space: Large loculated right-sided hydropneumothorax appears fairly stable. There is again a small left pleural effusion. No left pneumothorax. Heart/Mediastinum: The cardiomediastinal silhouette is fairly stable in appearance. Bones/joints: Unremarkable. IMPRESSION: Stable radiographic appearance of the chest since one day prior. Electronically signed by: Michael Hayes On 03/31/2020 10:12:27 AM
[2020-03-31] MEDS: cefTRIAXone SOD 2 GM in D5W MINI-BAG PLUS 50 ML IV SCH (12:48)
[2020-03-31] MEDS: IPRATROPIUM 0.5MG/ALBUTEROL 2.5MG INH SOL UD 3ML (DUONEB) NEB PRN (22:26)
[2020-04-01] VITALS (14 sets, daily range): BP systolic 101–151; BP diastolic 56–70; O2SAT 87–96
[2020-04-01] MEDS: IPRATROPIUM 0.5MG/ALBUTEROL 2.5MG INH SOL UD 3ML (DUONEB) NEB SCH ×4 (02:00→19:37)
[2020-04-01] MEDS: LEVOTHYROXINE 75MCG TABLET (0.075MG) PO SCH (05:12)
[2020-04-01] MEDS: SLF 3 ML SYR IV SCH ×3 (05:12→21:12)
[2020-04-01] MEDS: KETOROLAC 30 MG/ML 1ML VIAL IV SCH ×4 (05:12→23:00)
[2020-04-01 05:41] LABS: HEMATOCRIT 26.3 % (36.0-47.0); HEMOGLOBIN 8.2 g/dl (12.0-15.5); MEAN CORPUSCULAR HEMOGLOBIN 26.4 pg (27.0-33.0); MEAN CORPUSCULAR HGB CONC 31.2 g/dl (32.0-36.5); MEAN CORPUSCULAR VOLUME 84.6 fl (80.0-96.0); PLATELET COUNT, AUTOMATED 319 10^3/uL (150-450); RED BLOOD COUNT 3.11 10^6/uL (4.00-5.40); WHITE BLOOD COUNT 4.3 10^3/uL (4.0-10.0)
[2020-04-01 06:01] LABS: BLOOD UREA NITROGEN 5 MG/DL (7-18); CALCIUM LEVEL 8.3 MG/DL (8.5-10.1); CARBON DIOXIDE LEVEL 25 MEQ/L (21-32); CHLORIDE LEVEL 107 MEQ/L (98-107); CREATININE FOR GFR 0.62 MG/DL (0.55-1.30); GLOMERULAR FILTRATION RATE > 60.0 (>51); GLUCOSE, FASTING 95 MG/DL (70-100); POTASSIUM SERUM 3.6 MEQ/L (3.5-5.1); SODIUM LEVEL 140 MEQ/L (136-145)
[2020-04-01] MEDS: ACETYLCYSTEINE 20% 4 ML VIAL (200MG/ML) INH SCH ×2 (07:11→19:37)
[2020-04-01] MEDS: ENOXAPARIN 40MG/0.4ML SYRINGE (J1650 PER 10MG) SC SCH (09:00)
[2020-04-01] MEDS: FLUTICASONE PROP 0.05% NASAL SPRAY 16 GM (FLONASE) NARES SCH (09:00)
[2020-04-01] MEDS: guaiFENesin ER 600 MG TAB PO SCH ×2 (09:00→21:00)
[2020-04-01] MEDS: HYDROmorphone 2 MG TAB PO PRN ×2 (09:43→21:15)
--- NOTE | 2020-04-01 10:33 | IPNPDOC ---
Text Note Date of Service The patient was seen on 04/01/20. 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 Zepeda) who presented to the hospital with complaints of fevers and chills. Emergency room, patient was found to have an empyema and was admitted to the hospital service for further evaluation and treatment. Cardiothoracic surgery was called on consultation. Patient was seen and examined at the bedside. Patient reports that she is still coughing but unable to expectorate much sputum. Denies any chest pain, palpitations. Reports that her shortness of breath has improved. Denies any nausea, vomiting, abdominal pain, diarrhea, or urinary discomfort. Objective: Vitals (See below) General: Lying in bed, no acute distress, comfortable, AAOx3 HEENT: NC, AT CVS: +S1S2 Lungs: Coarse lung sounds bilaterally, wheezing appreciated Abdomen: Soft, ND, NT Extremities: - Edema, - Calf tenderness Imaging: CXR 03/24: Lungs: Apparent spiculated mass in the medial aspect of the right upper lobe measures approximately 3.3 x 4.3 cm. Left lung clear. Pleural space: Loculated moderate size right pleural effusion. Heart/Mediastinum: Unremarkable. No cardiomegaly. Bones/joints: Unremarkable. IMPRESSION: 1. Apparent spiculated mass in the medial aspect of the right upper lobe measures approximately 3.3 x 4.3 cm. 2. Loculated moderate size right pleural effusion. CHEST CT 03/25: FINDINGS: Lungs: Right upper lobe consolidation with some internal bronchiectasis and elevation of the right hemidiaphragm. Minimal infiltrate and atelectasis is noted in the remaining aerated right lung base which is similar to slightly increased since the prior study. The right lung consolidation is similar. Pleural space: Minimal left pleural effusion. Mild loculated right pleural effusion anteriorly. Heart: Unremarkable. No cardiomegaly. No pericardial effusion. Aorta: Unremarkable. No aortic aneurysm. Lymph nodes: Unremarkable. No enlarged lymph nodes. Bones/joints: Unremarkable. No acute fracture. Soft tissues: Unremarkable. IMPRESSION: 1. Minimal left pleural effusion which is slightly increased since 01/02/2020. 2. Right upper lobe atelectasis and consolidation with bronchiectasis which is similar to prior study. There is adjacent loculated right pleural effusion anteriorly which may reflect empyema which is similar. 3. There is minimal scattered infiltrate and atelectasis in the remaining aerated right lung which is similar to slightly increased. CT chest 03/29 post R pleural effusion drainage with catheter placement IMPRESSION: 1. Interval placement of a drainage catheter within the large multiloculated right anterior pleural effusion. This multiloculated right hydropneumothorax is mildly decreased in size compared to 03/25/2020. Sterile effusion, empyema, and malignant effusion are all in the imaging differential diagnosis. Correlation with pleural fluid analysis is needed. 2. Stable separate small right posterior/apical thick-walled pleural effusion. 3. New/worsened now severe pulmonary interstitial and airspace disease involving the previously aerated portions of the right lung. New mild left lung interstitial and airspace disease. The findings may indicate new pulmonary edema, right greater than left. Pulmonary infection/inflammation is also a co nsideration. 4. Other stable previously seen multifocal consolidation and volume loss of the right lung. An underlying pulmonary mass is not excludable. 5. Increased moderate left pleural effusion. Increased associated mild left lower lobe atelectasis. 6. New mild diffuse body wall edema suggestive of volume overload. 7. Please see the body of the report for other findings as described. Assessment and plan: Severe sepsis with hypotension - likely 2/2 empyema - Clinically patient has reported improvement of her symptoms; does report a cough, but is unable to expectorate much sputum - Patient is hemodynamically stable and saturating well on room air - Fever noted at 101.3 at midnight - Coarse lung sounds bilaterally - Blood cultures 03/24: No growth at 5 days - Pleural fluid culture 03/26: No growth - Sputum culture 03/25: Negative - Respiratory panel 03/24: Negative - c/w Ceftriaxone; s/p Vancomycin (MRSA screen negative) - antibiotic day #7 - c/w Mucinex and Mucomyst inhalation - Cardiothoracic surgery on consultation s/p Acute hypoxic respiratory failure - Saturating well on room air - c/w inhaled therapy as ordered Elevated BNP - Clinically patient does not appear to be in decompensated heart failure - s/p fluids Adenocarcinoma of the lung - Was last seen by medical oncology 03/17/20 - Patient will likely require outpatient follow-up medical oncology and repeat PET scan imaging Hypothyroidism - TSH noted - c/w Levothyroxine Anemia - likely 2/2 iron deficiency - Hg has remained in ~8 range over last several days - Will start Ferrous sulfate DVT prophylaxis - c/w Lovenox VS,Fishbone, I+O VS, Fishbone, I+O Laboratory Tests 04/01/20 05:11 Vital Signs Date Time Temp Pulse Resp B/P (MAP) Pulse Ox O2 Delivery O2 Flow Rate FiO2 04/01/20 09:43 18 Room Air 04/01/20 08:00 98.4 104 105/68 (80) 98 03/31/20 23:47 20.0 I&O- Last 24 Hours up to 6 AM0 04/01/20 06:00 Intake Total 550 ml Output Total 500 ml Balance 50 ml AURELIA COLLIER MD Apr 01, 2020 10:33
[2020-04-01] MEDS: cefTRIAXone SOD 2 GM in D5W MINI-BAG PLUS 50 ML IV SCH (12:06)
[2020-04-01] MEDS: FERROUS SULFATE 325MG TAB PO SCH ×2 (12:06→21:12)
--- NOTE | 2020-04-01 14:29 | IPN ---
DATE: 03/29/2020 SUBJECTIVE: Ms. Elder went down for the drainage of her anterior loculation and 80 mL were removed. Her vital signs show a maximum temperature (T-max) of 99.0 with a heart rate that ranges between 95 and 100 in sinus rhythm, respiratory rate of 18-20 without the use of accessory muscles. She is 92-97% saturated on room air and has blood pressures ranging between 110/57 to 127/82. Her intake and output the past 24 hours has been recorded as 440 in and 880 out for a negativity of 440 mL. She has put 80 mL out the chest tube yesterday and 15 mL since 12:00 midnight. Her weight today is 45.2 kg compared to 42 kg yesterday. PHYSICAL EXAMINATION: Her lung examination shows her to have normal vesicular sounds in the left upper hemithorax with moderately decreased breath sounds in the left lower hemithorax. Her right hemithorax shows bronchophony and egophony. Percussion note is dull throughout the right chest and full through the diaphragm on the left. Cardiac exam is without murmurs, clicks, gallops, or rubs. I cannot feel her PMI. S1, S2 are normal. Abdomen is soft, nontender. Bowel sounds are positive. There is no hepatomegaly. No CVA tenderness. Most significantly since her drainage, the abdominal pain has resolved. Extremities show no pretibial edema, no calf tenderness, no differential swelling of the upper extremities. Skin is warm and dry and perfused without cyanosis or mottling including that of nailbeds and knees. Neck is supple. There is no jugular venous distention, no subcutaneous emphysema. Trachea is midline. Mouth shows her mucous membranes to be pink and moist. Lips, gums, tongue show no thrush. Eyes show her pupils to be equal and reactive. Extraocular movements are intact. Sclerae nonicteric. Neurologically shows CN II-XII intact with gross motor, gross sensation intact. Gait is not tested. Psychiatric shows her to be awake and alert and oriented times three with appropriate mood and affect and conversational. Her white count today is 2.9 with a hemoglobin and hematocrit of 8.2 and 27.1 and a platelet count of 200. Chemistries today show essentially normal electrolytes with a BUN and creatinine of 7 and 0.5. Glucose is 85 with a calcium of 8.5. Her Vancomycin trough yesterday was 22.8, slightly outside the therapeutic window. She is now on Vancomycin and Ceftriaxone as antibiotics. Her chest x-ray shows an air fluid level where the catheter has been placed. Essentially the remainder is unchanged. There is some blunting of the left costophrenic angle. IMPRESSION: 1. Pneumonia with peripneumonic effusion. 2. History of pericarditis with pericardial effusion, nonmalignant. 3. Right hip pain. 4. Chronic obstructive pulmonary disease. PLAN DISCUSSION: Her microbiology has come back without aerobic growth. I thought I had seen a report yesterday showing a few gram positives in pairs but I do not see that today. I may have confused it with a sputum report which showed a few gram-positive cocci in clusters but normal olga. However, there were many white cells seen. While we do not have positive cultures, the pleural fluid was certainly more than consistent with an empyema. It should be noted that pathology did not show any malignant cells. Her echocardiogram done on 03/27/2020 only showed a trace pericardial effusion but there was no vegetation seen on her valves. She did have a calcific aortic valve with normal leaf excursion with a normal tricuspid valve and a mildly calcified mitral annulus with normal motion. I will obtain a CT scan on her today to see how much of the fluid has been evacuated. If there is still a collection I will do a TPA pleurolysis. The idea is to remove all the peripneumonic effusion and/or empyema residual and let it reaccumulate while on antibiotics. RADHA
--- NOTE | 2020-04-01 14:35 | IPN ---
DATE: 03/30/2020 SUBJECTIVE: SUBJECTIVE: Ms. Elder underwent a tissue plasminogen activator (tPA) pleurolysis yesterday evening around 6:00. After the pleurolysis she had an element of bronchospasm and increased secretions with extreme dyspnea. She was given Xopenex respiratory treatment along with nasal oxygen of 6 liters. She eventually recovered. She put out 170 mL after the tPA pleurolysis. Her vital signs show a maximum temperature (T-max) of 100.0 and now 97.3. Heart rate ranges between 122 and 101 in a sinus rhythm, respiratory rate of 18-20 now without the use of accessory muscles. Last night was up to a respiratory rate of 36 using accessory respiratory muscles. That episode passed fairly quickly. She is now 100% saturated on 3 liters nasal cannula. Blood pressure is ranging between 144/65 to 111/58. Her intake and output the past 24 hours has been recorded as 800 in and 1220 out for a negativity of 420 mL. As noted above she put 170 mL out yesterday from the pigtail catheter and 60 mL since midnight over the last ten hours. There is no air leak. PHYSICAL EXAMINATION: Her left lung shows scattered rhonchi but essentially normal vesicular sounds. Her right lung shows the same E:A egophony and bronchophony. Percussion note is dull on the right side and full to the diaphragm on the left. Cardiac exam is without murmurs, clicks, gallops, or rubs. I cannot feel her PMI. S1, S2 are normal. Abdomen is soft, nontender. Bowel sounds are positive. There is no hepatomegaly. No CVA tenderness. Extremities show no pretibial edema, no calf tenderness, no differential swelling of the upper extremities. Skin is warm and dry and perfused without cyanosis or mottling including that of nailbeds and knees. Neck is supple. There is no jugular venous distention, no subcutaneous emphysema. Trachea is midline. Mouth shows her mucous membranes to be pink and moist. Lips, gums, tongue show no thrush. Eyes show her pupils to be equal and reactive. Extraocular motions are intact. Sclerae nonicteric. Neurologically shows CN II-XII intact with gross motor, gross sensation intact. Gait is not tested. Psychiatric shows her to be awake and alert and oriented times three with appropriate mood and affect and conversational. Her white count today is 4.1 with a hemoglobin and hematocrit of 8.3 and 26.8 respectively. Platelet count is 234. Electrolytes are essentially normal with a BUN and creatinine of 8 and 0.57 with a glucose of 104 and a calcium of 8.3. There is no new microbiology on her. IMPRESSION: 1. Probable pneumonia. 2. Empyema. 3. Adenocarcinoma stage III status post chemotherapy and radiation. 4. 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 5. History of pericarditis with pericardial effusion, nonmalignant. 6. Right hip pain. 7. Chronic obstructive pulmonary disease (COPD). PLAN DISCUSSION: I will continue her on drainage today. Her chest x-ray shows an increased airspace where the loculated effusion was. It is much better today than it was yesterday after the TPA pleurolysis. I plan to keep the catheter in a few more days and let it completely drain and then remove it and let the fluid reaccumulate while on antibiotics. RADHA
--- NOTE | 2020-04-01 14:38 | IPN ---
DATE: 03/31/2020 Mrs. Elder is doing better today. She is breathing at baseline. She has been afebrile for the last 36 hours with a maximum temperature of 98.4. Heart rate ranges between 115 and 109 in sinus rhythm. Respiratory rate of 19-20 without using accessory muscles and 92% saturated on room air, and blood pressure ranging between 109/56 to 119/78. Her intake and output for the past 24 hours has been recorded as 1175 in and 335 out for a positivity of 840 cc. She has put out 110 cc from the chest tube catheter; however, over the last eight hours she has put out 15 and 35, and then 5 cc. There is no air leak. PHYSICAL EXAMINATION: Her left lung shows some normal vesicular sounds with scattered rhonchi. Left lung shows very coarse rhonchi and ____ sounds in the mid thorax posteriorly. Percussion was full to the diaphragm. Cardiac exam is without murmurs, click, gallops or rubs. I cannot feel her PMI. S1, S2 are normal. Abdomen is soft, nontender. Bowel sounds are positive. There is no hepatomegaly. No CVA tenderness. Extremities show no pretibial edema, no calf tenderness, no differential swelling of the upper extremities. Her skin is warm, dry and perfused without cyanosis or mottling including that of nailbeds and knees. Neck is supple. There is no jugular venous distention, no subcutaneous emphysema. Trachea is midline. Mouth shows her mucous membranes to be pink and moist. Lips, gums, tongue show no thrush. Eyes show her pupils to be equal and reactive. Extraocular motions are intact. Sclerae nonicteric. Neurologically shows CN II-XII intact with gross motor, gross sensation intact. Gait is not tested. Psychiatric shows her to be awake and alert and oriented times three with appropriate mood and affect and conversational. Her white count today is 3.4 with a hemoglobin and hematocrit of 7.5 and 24.4 down from 8.3 and 26.8. I can explain this partially by hemodilution form her intake and output. Her chemistries today show essentially normal electrolytes with a BUN and creatinine of 4 and 0.59, glucose of 128 and calcium of 7.9. Her chest x-ray today shows an empty air space with an air/fluid level. Lateral x-ray confirms the same. Remainder of her lung shows the chronic radiation changes and destruction. IMPRESSION: 1. Empyema. 2. Right lung pneumonia secondary to #3. 3. Bronchiectasis and radiation destruction. 4. History of pericarditis with pericardial effusion, nonmalignant. 5. Chronic obstructive pulmonary disease (COPD). PLAN AND DISCUSSION: I will remove her catheter today. We will allow her fluid to reaccumulate; hopefully in a sterile fashion being on antibiotics. We will monitor her chest x-ray over the next couple of days. Hopefully, she will remain afebrile from now on with a decreased white count. YASHD
--- NOTE | 2020-04-01 14:41 | IPN ---
DATE: 04/01/2020 SUBJECTIVE: Mrs. Elder had her pigtail catheter removed yesterday as she was draining very little. She did run a fever of 101 last night at 12:00 midnight but has now defervesced. She is not complaining of pain. Her vital signs show the maximum temperature (T-max) of 101.3 yesterday at midnight. Her heart rate is ranging between 100 and 105 in a sinus rhythm, respiratory rate of 18-20 without the use of accessory muscles. She was 94% saturated on room air, and has blood pressure ranging between 124/70 to 103/63. Her intake and output for the past 24 hours has been recorded as 625 in and 205 out for a positivity of 420 mL. Her chest catheter was removed yesterday after draining 5 mL. PHYSICAL EXAMINATION: Her left lung shows expiratory wheezing throughout. Right lung shows coarse rhonchi which are not cleared with coughing. Percussion notes are full to the diaphragm. Cardiac exam is without murmurs, clicks, gallops or rubs. I cannot feel her PMI. S1, S2 are normal. Abdomen is soft, nontender. Bowel sounds are positive. There is no hepatomegaly. No CVA tenderness. Extremities show no pretibial edema, no calf tenderness, no differential swelling of the upper extremities. Her skin is warm, dry and perfused without cyanosis or mottling including that of nailbeds and knees. Neck is supple. There is no jugular venous distention, no subcutaneous emphysema. Trachea is midline. Mouth shows her mucous membranes to be pink and moist. Lips, gums, tongue show no thrush. Eyes show her pupils to be equal and reactive. Extraocular motions are intact. Sclerae are nonicteric. Neurologically shows CN II-XII intact with gross motor, gross sensation intact. Gait is not tested. Psychiatric shows her to be awake and alert and oriented times three with appropriate mood and affect and conversational. Her white count is 4.3 up slightly from 3.5 yesterday. Hemoglobin and hematocrit are 8.2 and 26.3, improved over 7.5 and 24.2 yesterday. This is probably secondary to hemoconcentration. Platelet count is 319 and stable. Electrolytes are normal with a BUN and creatinine of 5 and 0.62 with a glucose of 95 and a calcium of 8.3. There is no new microbiology on her. The pleural fluid has been no growth aerobically and anaerobically. Pathology is negative for malignancy. Her chest x-ray today still shows the air fluid level in the loculate pocket. It is slightly increased from yesterday. IMPRESSION: 1. Pneumonia. 2. Empyema. 3. Radiation pneumonitis and destruction of underlying pulmonary parenchyma. 4. Bronchiectasis. 5. Chronic obstructive pulmonary disease (COPD). 6. History of pericarditis and pericardial effusion, nonmalignant. PLAN DISCUSSION: She is to remain on antibiotics until the fluid reaccumulates. Our hope is that when the fluid reaccumulates it will remain sterile. My wishful thinking is that the fever is secondary to continued pulmonary infection and pneumonia from her sphere of pulmonary destruction and bronchiectasis. RADHA
--- NOTE | 2020-04-01 14:44 | REP ---
CHEST X-RAY: 2-VIEWS HISTORY: Pleural effusion. COMPARISON: 03/24/2020. FINDINGS: The right hemidiaphragm is almost completely opacified. There is a small quantity of aeration in the superolateral right hemithorax. There is volume loss in the right hemithorax as well and the right hilar air bronchograms and perihilar air bronchograms are seen indicating elevation of the right diaphragm. There is also blunting of the left lateral and posterior pleural angles indicating small left pleural effusion. Pleural parenchymal opacity in the right chest is a little more prominent today, more extensively opaque than on 03/24/2020. The pleural angle blunting on the left is new. IMPRESSION: Progressive near complete opacification right hemithorax. New blunting left lateral pleural angles. MTDD
--- NOTE | 2020-04-01 14:46 | REP ---
CHEST X-RAY: 2-VIEWS HISTORY: Status post right thoracentesis under ultrasound guidance. COMPARISON: Made with the 0840 am radiograph on 03/27/2020. FINDINGS: There is blunting of the left lateral and posterior pleural angles again noted consistent with small left pleural effusion. The right hemithorax remains almost completely opacified. There is no evidence of pneumothorax. Perihilar air bronchograms are seen on the right as before. There is some shift of the mediastinum to the right. IMPRESSION: No complication seen. MTDD
--- NOTE | 2020-04-01 14:51 | REP ---
ULTRASOUND-GUIDED RIGHT THORACENTESIS This procedure was performed by TAZ Meng, under the direct supervision of Dr. Gamboa. The risks and benefits of the procedure were explained to the patient and an informed consent was obtained both verbally and written. Directly prior to the start of the procedure, a formal time-out was completed in the exam room. Pleural fluid in the right anterior lung zone was localized using ultrasound guidance. The skin was prepped and draped in a sterile fashion. Approximately 8 mL of buffered Lidocaine was used as a local anesthetic. Using ultrasound guidance, an 8-Turkmen multi-side hole catheter was inserted and advanced into the loculated fluid. Approximately 42 mL of fluid was withdrawn and sent to the lab for further analysis. The patient tolerated the procedure well, and there were no immediate complications. The patient was sent back to the unit to convalesce. This was dictated by TAZ Meng with Dr. Gamboa. [facility] MED[facility] CENTERPatience
[2020-04-02] VITALS (21 sets, daily range): BP systolic 76–133; BP diastolic 52–80; O2SAT 86–97
[2020-04-02] MEDS: IPRATROPIUM 0.5MG/ALBUTEROL 2.5MG INH SOL UD 3ML (DUONEB) NEB SCH ×4 (02:00→19:11)
[2020-04-02] MEDS: LEVOTHYROXINE 75MCG TABLET (0.075MG) PO SCH (05:27)
[2020-04-02] MEDS: KETOROLAC 30 MG/ML 1ML VIAL IV SCH ×2 (05:27→11:44)
[2020-04-02] MEDS: SLF 3 ML SYR IV SCH ×3 (05:28→20:53)
[2020-04-02 05:32] LABS: HEMATOCRIT 24.7 % (36.0-47.0); HEMOGLOBIN 7.5 g/dl (12.0-15.5); MEAN CORPUSCULAR HEMOGLOBIN 25.9 pg (27.0-33.0); MEAN CORPUSCULAR HGB CONC 30.4 g/dl (32.0-36.5); MEAN CORPUSCULAR VOLUME 85.2 fl (80.0-96.0); PLATELET COUNT, AUTOMATED 322 10^3/uL (150-450); WHITE BLOOD COUNT 4.6 10^3/uL (4.0-10.0)
[2020-04-02 05:54] LABS: BLOOD UREA NITROGEN 7 MG/DL (7-18); CARBON DIOXIDE LEVEL 23 MEQ/L (21-32); CHLORIDE LEVEL 107 MEQ/L (98-107); CREATININE FOR GFR 0.61 MG/DL (0.55-1.30); GLOMERULAR FILTRATION RATE > 60.0 (>51); GLUCOSE, FASTING 82 MG/DL (70-100); POTASSIUM SERUM 4.4 MEQ/L (3.5-5.1); SODIUM LEVEL 139 MEQ/L (136-145)
[2020-04-02 05:55] LABS: CALCIUM LEVEL 7.9 MG/DL (8.5-10.1)
[2020-04-02] MEDS: ACETYLCYSTEINE 20% 4 ML VIAL (200MG/ML) INH SCH ×2 (07:44→19:11)
[2020-04-02] MEDS: HYDROmorphone 2 MG TAB PO PRN (08:13)
[2020-04-02] MEDS: FLUTICASONE PROP 0.05% NASAL SPRAY 16 GM (FLONASE) NARES SCH (08:45)
[2020-04-02] MEDS: guaiFENesin ER 600 MG TAB PO SCH ×2 (08:45→19:58)
[2020-04-02] MEDS: FERROUS SULFATE 325MG TAB PO SCH ×2 (08:45→20:52)
[2020-04-02] MEDS: ENOXAPARIN 40MG/0.4ML SYRINGE (J1650 PER 10MG) SC SCH (08:45)
--- NOTE | 2020-04-02 11:14 | REPVR ---
PROCEDURE INFORMATION: Exam: US Duplex Upper Extremity Veins Exam date and time: 04/02/2020 10:55 AM Age: 59 years old Clinical indication: Swelling (edema) of limb; Upper extremity, bilateral TECHNIQUE: Imaging protocol: Real-time Duplex ultrasound of the Upper Extremities with 2-D cordova scale, color Doppler flow and spectral waveform analysis with image documentation. Complete exam focused on the bilateral upper extremity veins. COMPARISON: No relevant prior studies available. FINDINGS: Right deep veins: Unremarkable. Axillary and brachial veins are patent throughout without thrombus. Normal Doppler waveforms. Normal compressibility and/or augmentation response. Visualized internal jugular and subclavian veins are patent. Right superficial veins: Unremarkable. Visualized cephalic and basilic veins are patent without thrombus. Left deep veins: Unremarkable. Axillary and brachial veins are patent throughout without thrombus. Normal Doppler waveforms. Normal compressibility and/or augmentation response. Visualized internal jugular and subclavian veins are patent. Left superficial veins: Unremarkable. Visualized cephalic and basilic veins are patent without thrombus. Soft tissues: Unremarkable. IMPRESSION: No evidence of deep vein thrombosis. Electronically signed by: Harsh Wheat On 04/02/2020 11:14:25 AM
--- NOTE | 2020-04-02 11:42 | IPNPDOC ---
Text Note Date of Service The patient was seen on 04/02/20. 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 Zepeda) who presented to the hospital with complaints of fevers and chills. Emergency room, patient was found to have an empyema and was admitted to the hospital service for further evaluation and treatment. Cardiothoracic surgery was called on consultation. Patient was seen and examined at the bedside. Currently is seen sitting up in bed. Denies any CP, reports SOB with exertion and a cough that she is still having difficulty expectorating. Denies any abdominal pain, C/D or urinary discomfort. Objective: Vitals (See below) General: Sitting up in bed, appears comfortable, AAOx3 HEENT: NC, AT CVS: +S1S2 Lungs: There are coarse lung sounds bilaterally, diminished lung sounds lung base. wheezing Abdomen: Soft, nondistended, nontender Extremities: Lower extremities are free of pitting edema, - Calf tenderness Imaging: CXR 03/24: Lungs: Apparent spiculated mass in the medial aspect of the right upper lobe measures approximately 3.3 x 4.3 cm. Left lung clear. Pleural space: Loculated moderate size right pleural effusion. Heart/Mediastinum: Unremarkable. No cardiomegaly. Bones/joints: Unremarkable. IMPRESSION: 1. Apparent spiculated mass in the medial aspect of the right upper lobe measures approximately 3.3 x 4.3 cm. 2. Loculated moderate size right pleural effusion. CHEST CT 03/25: FINDINGS: Lungs: Right upper lobe consolidation with some internal bronchiectasis and elevation of the right hemidiaphragm. Minimal infiltrate and atelectasis is noted in the remaining aerated right lung base which is similar to slightly increased since the prior study. The right lung consolidation is similar. Pleural space: Minimal left pleural effusion. Mild loculated right pleural effusion anteriorly. Heart: Unremarkable. No cardiomegaly. No pericardial effusion. Aorta: Unremarkable. No aortic aneurysm. Lymph nodes: Unremarkable. No enlarged lymph nodes. Bones/joints: Unremarkable. No acute fracture. Soft tissues: Unremarkable. IMPRESSION: 1. Minimal left pleural effusion which is slightly increased since 01/02/2020. 2. Right upper lobe atelectasis and consolidation with bronchiectasis which is similar to prior study. There is adjacent loculated right pleural effusion anteriorly which may reflect empyema which is similar. 3. There is minimal scattered infiltrate and atelectasis in the remaining aerated right lung which is similar to slightly increased. CT chest 03/29 post R pleural effusion drainage with catheter placement IMPRESSION: 1. Interval placement of a drainage catheter within the large multiloculated right anterior pleural effusion. This multiloculated right hydropneumothorax is mildly decreased in size compared to 03/25/2020. Sterile effusion, empyema, and malignant effusion are all in the imaging differential diagnosis. Correlation with pleural fluid analysis is needed. 2. Stable separate small right posterior/apical thick-walled pleural effusion. 3. New/worsened now severe pulmonary interstitial and airspace disease involving the previously aerated portions of the right lung. New mild left lung interstitial and airspace disease. The findings may indicate new pulmonary edema, right greater than left. Pulmonary infection/inflammation is also a consideration. 4. Other stable previously seen multifocal consolidation and volume loss of the right lung. An underlying pulmonary mass is not excludable. 5. Increased moderate left pleural effusion. Increased associated mild left lower lobe atelectasis. 6. New mild diffuse body wall edema suggestive of volume overload. 7. Please see the body of the report for other findings as described. Duplex US 04/02: No evidence of deep vein thrombosis. Assessment and plan: Severe sepsis with hypotension - likely 2/2 empyema - Clinically patient has reported improvement of her symptoms; does report a cough, but is unable to expectorate much sputum - Hemodynamically stable and saturating well on room air without desaturation - Low grade temperature of 100.2 noted yesterday afternoon - Coarse lung sounds bilaterally persist - Blood cultures 03/24: No growth at 5 days - Pleural fluid culture 03/26: No growth - Sputum culture 03/25: Negative - Respiratory panel 03/24: Negative - c/w Ceftriaxone; s/p Vancomycin (MRSA screen negative) - antibiotic day #8 - c/w Mucinex and Mucomyst inhalation - Cardiothoracic surgery on consultation - Anticipate DC within 24 hours s/p Acute hypoxic respiratory failure - Saturating well on room air - c/w inhaled therapy as ordered Elevated BNP - Clinically patient does not appear to be in decompensated heart failure - s/p fluids Adenocarcinoma of the lung - Was last seen by medical oncology 03/17/20 - Patient will likely require outpatient follow-up medical oncology and repeat PET scan imaging Hypothyroidism - TSH noted - c/w Levothyroxine Anemia - likely 2/2 iron deficiency - Hg has remained in ~8 range over last several days - Hg relatively stable; no evidence of bleeding - Patient has refused blood transfusions - c/w Ferrous sulfate DVT prophylaxis - c/w Lovenox Disposition: - Anticipate DC tomorrow VS,Von, I+O VS, Von, I+O Laboratory Tests 04/02/20 05:24 Vital Signs Date Time Temp Pulse Resp B/P (MAP) Pulse Ox O2 Delivery O2 Flow Rate FiO2 04/02/20 08:43 20 Room Air 04/02/20 07:59 98.4 101 101/57 (72) 96 04/01/20 21:15 20.0 I&O- Last 24 Hours up to 6 AM 04/02/20 06:00 Intake Total 1080 ml Output Total 750 ml Balance 330 ml AURELIA COLLIER MD Apr 02, 2020 11:42
[2020-04-02] MEDS: cefTRIAXone SOD 2 GM in D5W MINI-BAG PLUS 50 ML IV SCH (12:31)
[2020-04-02] MEDS ORDERED: NS 500 ML IV ONE (15:45)
[2020-04-02] MEDS: IBUPROFEN 800 MG TAB PO PRN (19:03)
[2020-04-02] MEDS: LevoFLOXacin IV 750 MG in IV 1 EA IV SCH (20:58)
[2020-04-03] VITALS (18 sets, daily range): BP systolic 112–143; BP diastolic 62–78; O2SAT 92–97
[2020-04-03] MEDS: IPRATROPIUM 0.5MG/ALBUTEROL 2.5MG INH SOL UD 3ML (DUONEB) NEB SCH ×4 (01:25→19:06)
[2020-04-03] MEDS: LEVOTHYROXINE 75MCG TABLET (0.075MG) PO SCH (05:45)
[2020-04-03] MEDS: SLF 3 ML SYR IV SCH ×3 (05:45→20:31)
[2020-04-03] MEDS: IBUPROFEN 800 MG TAB PO PRN (05:45)
[2020-04-03] MEDS: ACETYLCYSTEINE 20% 4 ML VIAL (200MG/ML) INH SCH ×2 (07:16→19:06)
[2020-04-03 07:19] LABS: HEMATOCRIT 25.5 % (36.0-47.0); HEMOGLOBIN 7.9 g/dl (12.0-15.5); MEAN CORPUSCULAR HEMOGLOBIN 26.5 pg (27.0-33.0); MEAN CORPUSCULAR VOLUME 85.6 fl (80.0-96.0); PLATELET COUNT, AUTOMATED 377 10^3/uL (150-450); RED BLOOD COUNT 2.98 10^6/uL (4.00-5.40); WHITE BLOOD COUNT 5.8 10^3/uL (4.0-10.0)
[2020-04-03 07:47] LABS: BLOOD UREA NITROGEN 8 MG/DL (7-18); CALCIUM LEVEL 8.3 MG/DL (8.5-10.1); CARBON DIOXIDE LEVEL 23 MEQ/L (21-32); CHLORIDE LEVEL 107 MEQ/L (98-107); CREATININE FOR GFR 0.51 MG/DL (0.55-1.30); GLOMERULAR FILTRATION RATE > 60.0 (>51); GLUCOSE, FASTING 79 MG/DL (70-100); POTASSIUM SERUM 3.7 MEQ/L (3.5-5.1); SODIUM LEVEL 139 MEQ/L (136-145)
[2020-04-03] MEDS: ENOXAPARIN 40MG/0.4ML SYRINGE (J1650 PER 10MG) SC SCH (09:00)
[2020-04-03] MEDS: FERROUS SULFATE 325MG TAB PO SCH ×2 (09:00→20:31)
[2020-04-03] MEDS: guaiFENesin ER 600 MG TAB PO SCH ×2 (09:00→20:31)
[2020-04-03] MEDS: FLUTICASONE PROP 0.05% NASAL SPRAY 16 GM (FLONASE) NARES SCH (09:00)
--- NOTE | 2020-04-03 10:32 | REPVR ---
PROCEDURE INFORMATION: Exam: XR Chest, 2 Views Exam date and time: 04/03/2020 8:52 AM Age: 59 years old Clinical indication: Other: Empyema; Additional info: Emypema, loculated TECHNIQUE: Imaging protocol: XR of the chest Views: 2 views. COMPARISON: 1. CR Chest, 2 view PA, Lat 04/02/2020 7:[address] Chest without contrast 03/29/2020 12:24:40 PM 3. CR - Chest, 2 view PA, Lat 03/31/2020 9:35:02 AM 4. CR - Chest, 2 view PA, Lat 03/30/2020 7:42:12 AM FINDINGS: Lungs: Dense masslike opacity is again seen in the right apex and suprahilar region with irregular curvilinear air bronchograms and continued suspected narrowing or occlusion of the right mainstem bronchus. Pleural space: Large right hydropneumothorax persists with clear air-fluid level. Small left pleural effusion persists. Heart/Mediastinum: Unremarkable. No cardiomegaly. Bones/joints: No acute osseous abnormality. IMPRESSION: 1. No significant change in dense masslike opacity at the right apex and suprahilar region, with curvilinear air bronchograms and narrowing or occlusion of the right mainstem bronchus. 2. Large right hydropneumothorax persists, with small left pleural effusion. Electronically signed by: Annamaria Khalil On 04/03/2020 10:32:20 AM
--- NOTE | 2020-04-03 11:18 | IPN ---
DATE: 04/02/2020 SUBJECTIVE: Mrs. Elder has been afebrile for the past 24 hours. Her last febrile temperature was 100.2 yesterday at 12 noon. She is breathing fairly well, but she continues to complain of mucous in the back of her throat and a congested nose. VITAL SIGNS: Show the above T-max of 100.2 with heart rate that ranges between 76 and 110 in sinus rhythm, respiratory rate of 18 to 20 without use of accessory muscle, and 98 to 96% saturated on room air. Blood pressures are ranging between 133/65 to 101/57. INTAKE AND OUTPUT: For the past 24 hours recorded as 1280 in and 750 out for a positivity of 530 cc. She is now approximately 1,000 cc ahead of us over the past few days. Her weight today is 46.8 kilos; greater than 46.3 kilos on 03/30/2020. PHYSICAL EXAMINATION: She has decreased breath sounds on the right side with very coarse rhonchi, which does not clear with coughing. She has a little bit of inspiratory wheezing on the left side with rales and rhonchi throughout. Percussion was full to the diaphragm on the left side. Cardiac exam was without murmurs, clicks, gallops or rubs. I cannot feel her PMI. S1, S2 are normal. Abdomen is soft and nontender, bowel sounds are positive. There is no hepatomegaly. No CVA tenderness. Extremities show no pretibial edema, no calf tenderness, no differential swelling of the upper extremities. Skin is warm, dry and perfused without cyanosis or mottling including that of the nailbeds or knees. Neck is supple, there is no jugular venous distention. No subcutaneous emphysema. Trachea is midline. Mouth shows her mucous membranes to be pink and moist. Lips and commissures without thrush. Eyes shows her pupils to be equal and reactive, extraocular muscles intact, sclerae anicteric. Neuro: Cranial nerves II through XII intact, with gross motor, gross sensation intact. Gait is not tested. Psychiatric showed her to be awake, alert and oriented x3 with appropriate mood and affect and conversational. LABORATORY DATA: White count today 4.6; essentially unchanged from 4.3 yesterday. Hemoglobin and hematocrit, however, are 7.5 and 24.7, which I think is secondary to hemodilution; they were 8.2 and 26.3 yesterday. Platelet count 322,000. Electrolytes are normal with BUN and creatinine 7 and 0.61. Glucose 82 and calcium 7.9. Her last vancomycin level was on 03/30/2020, which was 16.3 and within the therapeutic window. MICROBIOLOGY: There is no new microbiology. As noted in prior notes, she had an exudative neutrophilic effusion, consistent with an empyema. IMAGING STUDIES: Her chest x-ray today shows the cavity now continuing to fill. IMPRESSION: 1. Right-sided pneumonia. 2. Empyema. 3. Radiation pneumonitis with destruction of underlying pulmonary parenchyma on the right. 4. Bronchiectasis on the right. 5. COPD. 6. History of pericarditis and pericardial effusion non-malignant. PLAN/DISCUSSION: The overall strategy is to allow the fluid to reaccumulate within the empty cavity, hopefully it will do so in a sterile fashion. She will be kept on antibiotics until that happens. The real question is going to be when we send her home. Fifi by conventional wisdom has been a pleural penetration, however, that is I.V. and that would keep her in the hospital for quite a number of days. We could change her over to an alternate cephalosporin; i.e. Ceftin. I will continue to keep in touch with her medical hospitalists. RADHA
--- NOTE | 2020-04-03 11:24 | REP ---
ULTRASOUND-GUIDED RIGHT ANTERIOR PIGTAIL CATHETER PLACEMENT This procedure was performed by TAZ Meng, under the direct supervision of Dr. Gamboa. The risks and benefits of the procedure were explained to the patient and an informed consent was obtained both verbally and written. Directly prior to the start of the procedure, a formal time-out was completed in the procedure room. A loculated fluid collection in the anterior right lung zone was localized using ultrasound guidance. The skin was prepped and draped in a sterile fashion. Approximately 20 mL of buffered Lidocaine was used as a local anesthetic. Using ultrasound guidance, an 8-[place] pigtail catheter was inserted and advanced into the loculated fluid collection. This pigtail catheter was hooked up to a Pleur- Evac. The patient tolerated the procedure extremely well, and there were no immediate complications. The patient was discharged back to the unit. RADHA
--- NOTE | 2020-04-03 11:28 | REP ---
TWO-VIEW CHEST COMPARISON: Latest prior yesterday. FINDINGS: The thoracotomy tube is unchanged. The right hemithoracic opacity has increased slightly. The lucency surrounding the tip of the thoracotomy tube has increased slightly. There are chronic left base changes status quo. There is no change on the osseous structures. IMPRESSION: Minimal changes. MTDD
--- NOTE | 2020-04-03 11:54 | IPNPDOC ---
Text Note Date of Service The patient was seen on 04/03/20. 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 Zepeda) who presented to the hospital with complaints of fevers and chills. Emergency room, patient was found to have an empyema and was admitted to the hospital service for further evaluation and treatment. Cardiothoracic surgery was called on consultation. Patient was seen and examined at the bedside. Patient reports that she was able to cough up significant amount of sputum. Yesterday she reports her breathing is doing significantly better today. She denies any chest pain, shortness of breath or palpitations. Denies any nausea, vomiting, abdominal pain, diarrhea, or urinary discomfort. Objective: Vitals (See below) General: Sitting up in bed without any acute distress, appears comfortable, speaking in full sentences, AAOx3 HEENT: NC, AT CVS: +S1S2 Lungs: Air entry appears to have improved aeration, right lung base was still diminished breath sounds; no significant wheezing or rhonchi Abdomen: Again is soft without any distention or tenderness Extremities: Lower extremities are free of pitting edema, - Calf tenderness Imaging: CXR 03/24: Lungs: Apparent spiculated mass in the medial aspect of the right upper lobe measures approximately 3.3 x 4.3 cm. Left lung clear. Pleural space: Loculated moderate size right pleural effusion. Heart/Mediastinum: Unremarkable. No cardiomegaly. Bones/joints: Unremarkable. IMPRESSION: 1. Apparent spiculated mass in the medial aspect of the right upper lobe measures approximately 3.3 x 4.3 cm. 2. Loculated moderate size right pleural effusion. CHEST CT 03/25: FINDINGS: Lungs: Right upper lobe consolidation with some internal bronchiectasis and elevation of the right hemidiaphragm. Minimal infiltrate and atelectasis is noted in the remaining aerated right lung base which is similar to slightly increased since the prior study. The right lung consolidation is similar. Pleural space: Minimal left pleural effusion. Mild loculated right pleural effusion anteriorly. Heart: Unremarkable. No cardiomegaly. No pericardial effusion. Aorta: Unremarkable. No aortic aneurysm. Lymph nodes: Unremarkable. No enlarged lymph nodes. Bones/joints: Unremarkable. No acute fracture. Soft tissues: Unremarkable. IMPRESSION: 1. Minimal left pleural effusion which is slightly increased since 01/02/2020. 2. Right upper lobe atelectasis and consolidation with bronchiectasis which is similar to prior study. There is adjacent loculated right pleural effusion anteriorly which may reflect empyema which is similar. 3. There is minimal scattered infiltrate and atelectasis in the remaining aerated right lung which is similar to slightly increased. CT chest 03/29 post R pleural effusion drainage with catheter placement IMPRESSION: 1. Interval placement of a drainage catheter within the large multiloculated right anterior pleural effusion. This multiloculated right hydropneumothorax is mildly decreased in size compared to 03/25/2020. Sterile effusion, empyema, and malignant effusion are all in the imaging differential diagnosis. Correlation with pleural fluid analysis is needed. 2. Stable separate small right posterior/apical thick-walled pleural effusion. 3. New/worsened now severe pulmonary interstitial and airspace disease involving the previously aerated portions of the right lung. New mild left lung intersti tial and airspace disease. The findings may indicate new pulmonary edema, right greater than left. Pulmonary infection/inflammation is also a consideration. 4. Other stable previously seen multifocal consolidation and volume loss of the right lung. An underlying pulmonary mass is not excludable. 5. Increased moderate left pleural effusion. Increased associated mild left lower lobe atelectasis. 6. New mild diffuse body wall edema suggestive of volume overload. 7. Please see the body of the report for other findings as described. Duplex US 04/02: No evidence of deep vein thrombosis. CXR 04/03: 1. No significant change in dense masslike opacity at the right apex and suprahilar region, with curvilinear air bronchograms and narrowing or occlusion of the right mainstem bronchus. 2. Large right hydropneumothorax persists, with small left pleural effusion. Assessment and plan: Severe sepsis with hypotension - likely 2/2 empyema / pneumonia - This morning patient reports that her breathing is doing significantly better - She remains hemodynamically stable and physical reveals improved aeration - Patient did have a febrile episode yesterday evening up to 102.9 - Blood cultures 03/24: No growth at 5 days / Pleural fluid culture 03/26: No growth / Sputum culture 03/25: Negative / Respiratory panel 03/24: Negative - c/w Levaquin (Day #2); s/p Ceftriaxone; s/p Vancomycin (MRSA screen negative) - antibiotic day #9 - c/w Mucinex and Mucomyst inhalation - Cardiothoracic surgery on consultation s/p Acute hypoxic respiratory failure - Saturating well on room air - c/w inhaled therapy as ordered Elevated BNP - Clinically patient does not appear to be in decompensated heart failure - s/p fluids Adenocarcinoma of the lung - Was last seen by medical oncology 03/17/20 - Patient will likely require outpatient follow-up medical oncology and repeat PET scan imaging Hypothyroidism - TSH noted - c/w Levothyroxine Anemia - likely 2/2 iron deficiency - Hg has remained in ~8 range over last several days - Hg relatively stable; no evidence of bleeding - Patient has refused blood transfusions - c/w Ferrous sulfate DVT prophylaxis - c/w Lovenox Disposition: - Awaiting patient to remain afebrile for >24 hours - Antibiotics adjusted VS,Fishbone, I+O VS, Fishbone, I+O Laboratory Tests 04/03/20 06:18 Vital Signs Date Time Temp Pulse Resp B/P (MAP) Pulse Ox O2 Delivery O2 Flow Rate FiO2 04/03/20 08:00 98.2 101 18 112/69 (83) 94 Room Air 04/01/20 21:15 20.0 I&O- Last 24 Hours up to 6 AM 04/03/20 05:59 Intake Total 500 ml Output Total 1650 ml Balance -1150 ml AURELIA COLLIER MD Apr 03, 2020 11:54
[2020-04-03] MEDS: LevoFLOXacin IV 750 MG in IV 1 EA IV SCH (20:30)
[2020-04-03] MEDS: IPRATROPIUM 0.5MG/ALBUTEROL 2.5MG INH SOL UD 3ML (DUONEB) NEB PRN (23:28)
[2020-04-04] MEDS: IPRATROPIUM 0.5MG/ALBUTEROL 2.5MG INH SOL UD 3ML (DUONEB) NEB SCH ×2 (02:12→07:14)
[2020-04-04 04:00] VITALS: BP 121/71
[2020-04-04] MEDS: SLF 3 ML SYR IV SCH (05:16)
[2020-04-04] MEDS: LEVOTHYROXINE 75MCG TABLET (0.075MG) PO SCH (05:16)
[2020-04-04] MEDS: ACETYLCYSTEINE 20% 4 ML VIAL (200MG/ML) INH SCH (07:14)
[2020-04-04 08:00] VITALS: BP 127/73
[2020-04-04] MEDS: FLUTICASONE PROP 0.05% NASAL SPRAY 16 GM (FLONASE) NARES SCH (08:15)
[2020-04-04] MEDS: ENOXAPARIN 40MG/0.4ML SYRINGE (J1650 PER 10MG) SC SCH (08:15)
[2020-04-04] MEDS: guaiFENesin ER 600 MG TAB PO SCH (08:15)
[2020-04-04] MEDS: FERROUS SULFATE 325MG TAB PO SCH (08:15)
[2020-04-04 08:45] LABS: BASO % 0.3 % (0.0-1.0); EOS % 0.3 % (0.0-3.0); HEMATOCRIT 28.9 % (36.0-47.0); HEMOGLOBIN 8.9 g/dl (12.0-15.5); LYMPH # 0.6 10^3/uL (1.5-5.0); LYMPH % 8.8 % (24.0-44.0); MEAN CORPUSCULAR HEMOGLOBIN 26.5 pg (27.0-33.0); MEAN CORPUSCULAR HGB CONC 30.8 g/dl (32.0-36.5); MONO # 0.6 10^3/uL (0.0-0.8); MONO % 9.2 % (0.0-5.0); NEUTROPHILS # 5.4 10^3/uL (1.5-8.5); NEUTROPHILS % 80.8 % (36.0-66.0); PLATELET COUNT, AUTOMATED 453 10^3/uL (150-450); RED BLOOD COUNT 3.36 10^6/uL (4.00-5.40); WHITE BLOOD COUNT 6.7 10^3/uL (4.0-10.0)
--- NOTE | 2020-04-04 08:45 | IPN ---
DATE: 04/03/2020 SUBJECTIVE: Ms. Shah ran a temperature last night of 102.8. She is fairly frustrated, but our recommendations are for her to stay in the hospital on IV antibiotics at least one more day. She is breathing well, and most interestingly is that she brought up a broncholith. Since bringing that up, she is breathing a whole lot better and has much fewer rattles. PHYSICAL EXAMINATION: Her vital signs show the above T-max with a heart rate that ranges between 100 and 104 and sinus rhythm. Respiratory rate of 18-20 with the use of accessory muscles. She was 96 to 93% saturated now on room air. Her blood pressure is ranging between 120/62 to 112/69. Her intake and output over the last 24 hours is recorded as 500 in and 1500 out for a negativity of 1000 mL. She weighs 46.1 kg compared to 46.8 kg yesterday. On physical examination, her lungs are a lot clearer today than they were yesterday. I still hear some coarse rhonchi in both the right and left lungs. The left lung clears, and the right does not. Percussion notes are full through the diaphragm. Cardiac exam is without murmurs, clicks, gallops, or rubs. I cannot feel her PMI. S1 and S2 are normal. Abdomen was soft, nontender. Bowel sounds were positive. There is no hepatomegaly. No CVA tenderness. Extremities show no pretibial edema. No calf tenderness. No differential swelling of the upper extremities. Skin is warm, dry, and perfused without cyanosis or mottling including that of the nailbeds and knees. Neck is supple. There is no jugular venous distention. No subcutaneous emphysema. Trachea is midline. Mouth shows her mucous membranes to be pink and moist. Lips and commissures without lesions or thrush. Eyes show pupils to be equal and reactive. Sclera anicteric. Neuro: Cranial nerves II-XII intact with gross motor and gross sensation intact. Gait is not tested. Psychiatric showed her to be awake, alert, and oriented x3 with appropriate mood and affect and conversational. LABORATORY DATA: Her white count today is 5.8, up from 4.6 yesterday. Hemoglobin and hematocrit are 7.9 and 25.5. Platelet count is 377 and stable. Chemistries showed normal electrolytes with BUN and creatinine of 8 and 0.51, a glucose of 79, and a calcium of 8.3. Her chest x-ray today shows the cavity filling up. I do not see much of a change in the last 24 hours though. There is slight pleural thickening in the left costophrenic angle. She is undergoing diuresis. IMPRESSION: 1. Right-sided pneumonia. 2. Radiation pneumonitis with destruction of underlying pulmonary parenchyma on the right and bronchiectasis on the right. 3. COPD. 4. Empyema, hopefully resolved. 5. History of pericarditis with pericardial effusion, nonmalignant. PLAN AND DISCUSSION: I do think we need to keep her in the hospital at least 24 more hours. Medical Services has switched her to Levaquin IV in preparation for going home. We were hoping to send her home today, but I do not think that is in her best interest. I have encouraged her to continue with the Lovenox and her other medications that we have prescribed. I will continue to follow her x-rays. RADHA
[2020-04-04] MEDS ORDERED: FERR325T18 PO (08:48)
[2020-04-04] MEDS ORDERED: MUCI600T31 PO (08:48)
[2020-04-04] MEDS ORDERED: LEVO750T13 PO (08:48)
[2020-04-04 09:11] LABS: BLOOD UREA NITROGEN 9 MG/DL (7-18); CALCIUM LEVEL 8.1 MG/DL (8.5-10.1); CARBON DIOXIDE LEVEL 18 MEQ/L (21-32); CHLORIDE LEVEL 106 MEQ/L (98-107); CREATININE FOR GFR 0.52 MG/DL (0.55-1.30); GLOMERULAR FILTRATION RATE > 60.0 (>51); GLUCOSE, FASTING 63 MG/DL (70-100); MAGNESIUM LEVEL 2.2 MG/DL (1.8-2.4); POTASSIUM SERUM 4.2 MEQ/L (3.5-5.1); SODIUM LEVEL 136 MEQ/L (136-145)
--- NOTE | 2020-04-04 11:19 | DS.PDOC ---
Discharge Summary General Date of Admission Mar 25, 2020 at 04:05 Date of Discharge 04/04/2020 Discharge Summary PROCEDURES PERFORMED DURING STAY: [None]. ADMITTING DIAGNOSES / DISCHARGE DIAGNOSES: Severe sepsis with hypotension - likely 2/2 empyema / pneumonia s/p Acute hypoxic respiratory failure Elevated BNP Adenocarcinoma of the lung Hypothyroidism Anemia - likely 2/2 iron deficiency DVT prophylaxis COMPLICATIONS/CHIEF COMPLAINT: Sepsis. HISTORY OF PRESENT ILLNESS: Patient is a 59-year-old female with a PMHx of Adenocarcinoma of RUL (Dx 2016; s/p chemo / radiation), Recurrent pleural effusion, Hypothyroidism, Radiation serositis (08/2019) Emphysema (Follows with Dr. Zepeda) who presented to the hospital with complaints of fevers and chills. Emergency room, patient was found to have an empyema and was admitted to the hospital service for further evaluation and treatment. Cardiothoracic surgery was called on consultation. HOSPITAL COURSE: Severe sepsis with hypotension - likely 2/2 empyema / pneumonia - Patient reports that she feels relatively fine; physicals without any wheezing or rhonchi - Hemodynamically stable / only a low-grade temperature of 100.1 was noted yes terday - Blood cultures 03/24: No growth at 5 days / Pleural fluid culture 03/26: No growth / Sputum culture 03/25: Negative / Respiratory panel 03/24: Negative - c/w Levaquin (Day #3); s/p Ceftriaxone and Vancomycin (MRSA screen negative) - antibiotic day #10; will complete additional 2 weeks of antibiotic therapy as an outpatient - c/w Mucinex and Mucomyst inhalation - Cardiothoracic surgery on consultation - Will have outpatient follow-up with pulmonology, Dr. Zepeda within the next 7 days s/p Acute hypoxic respiratory failure - Saturating well on room air - c/w inhaled therapy as ordered Elevated BNP - Clinically patient does not appear to be in decompensated heart failure - s/p fluids Adenocarcinoma of the lung - Was last seen by medical oncology 03/17/20 - Patient will likely require outpatient follow-up medical oncology and repeat PET scan imaging Hypothyroidism - TSH noted - c/w Levothyroxine Anemia - likely 2/2 iron deficiency - Hg has remained in ~8 range over last several days - Hg has remained stable - Patient has refused blood transfusions - c/w Ferrous sulfate DVT prophylaxis - c/w Lovenox DISCHARGE MEDICATIONS: Please see below. ALLERGIES: Please see below. PHYSICAL EXAMINATION ON DISCHARGE: Vitals (See below) General: Sitting up in bed, does not appear to be in any acute distress. Appears comfortable, awake and alert, oriented 3 HEENT: NC, AT CVS: +S1S2 Lungs: Right lung base with diminished lung sounds no significant wheezing, rhonchi or crackles Abdomen: Nondistended, nontender, and remains soft Extremities: LE are without any edema, - Calf tenderness LABORATORY DATA: Please see below. IMAGING DATA: CXR 03/24: Lungs: Apparent spiculated mass in the medial aspect of the right upper lobe measures approximately 3.3 x 4.3 cm. Left lung clear. Pleural space: Loculated moderate size right pleural effusion. Heart/Mediastinum: Unremarkable. No cardiomegaly. Bones/joints: Unremarkable. IMPRESSION: 1. Apparent spiculated mass in the medial aspect of the right upper lobe measures approximately 3.3 x 4.3 cm. 2. Loculated moderate size right pleural effusion. CHEST CT 03/25: FINDINGS: Lungs: Right upper lobe consolidation with some internal bronchiectasis and elevation of the right hemidiaphragm. Minimal infiltrate and atelectasis is noted in the remaining aerated right lung base which is similar to slightly increased since the prior study. The right lung consolidation is similar. Pleural space: Minimal left pleural effusion. Mild loculated right pleural effusion anteriorly. Heart: Unremarkable. No cardiomegaly. No pericardial effusion. Aorta: Unremarkable. No aortic aneurysm. Lymph nodes: Unremarkable. No enlarged lymph nodes. Bones/joints: Unremarkable. No acute fracture. Soft tissues: Unremarkable. IMPRESSION: 1. Minimal left pleural effusion which is slightly increased since 01/02/2020. 2. Right upper lobe atelectasis and consolidation with bronchiectasis which is similar to prior study. There is adjacent loculated right pleural effusion anteriorly which may reflect empyema which is similar. 3. There is minimal scattered infiltrate and atelectasis in the remaining aerated right lung which is similar to slightly increased. CT chest 03/29 post R pleural effusion drainage with catheter placement IMPRESSION: 1. Interval placement of a drainage catheter within the large multiloculated right anterior pleural effusion. This multiloculated right hydropneumothorax is mildly decreased in size compared to 03/25/2020. Sterile effusion, empyema, and malignant effusion are all in the imaging differential diagnosis. Correlation with pleural fluid analysis is needed. 2. Stable separate small right posterior/apical thick-walled pleural effusion. 3. New/worsened now severe pulmonary interstitial and airspace disease involving the previously aerated portions of the right lung. New mild left lung inters titial and airspace disease. The findings may indicate new pulmonary edema, right greater than left. Pulmonary infection/inflammation is also a consideration. 4. Other stable previously seen multifocal consolidation and volume loss of the right lung. An underlying pulmonary mass is not excludable. 5. Increased moderate left pleural effusion. Increased associated mild left lower lobe atelectasis. 6. New mild diffuse body wall edema suggestive of volume overload. 7. Please see the body of the report for other findings as described. Duplex US 04/02: No evidence of deep vein thrombosis. CXR 04/03: 1. No significant change in dense masslike opacity at the right apex and suprahilar region, with curvilinear air bronchograms and narrowing or occlusion of the right mainstem bronchus. 2. Large right hydropneumothorax persists, with small left pleural effusion. ACTIVITY: [As tolerated]. DISCHARGE PLAN: Follow-up with primary care provider, and Dr. Zepeda within the next 7 days Remain compliant with treatment plan and medications Return to the ER if you experience any problems DISPOSITION: Home DISCHARGE CONDITION: [Stable]. TIME SPENT ON DISCHARGE: 35 minutes Vital Signs/I&Os Vital Signs Date Time Temp Pulse Resp B/P (MAP) Pulse Ox O2 Delivery O2 Flow Rate FiO2 04/04/20 08:00 97.8 114 20 127/73 (91) 100 Room Air 04/01/20 21:15 20.0 I&O- Last 24 Hours up to 6 AM 04/04/20 06:00 Intake Total 720 ml Output Total 1225 ml Balance -505 ml Laboratory Data Labs 24H Laboratory Tests 2 04/04/20 07:58: Anion Gap 12, Glomerular Filtration Rate > 60.0, Calcium Level 8.1L, Magnesium Level 2.2, C-Reactive Protein, Quantitative 14.40H 04/04/20 08:29: Immature Granulocyte % (Auto) 0.6, Neutrophils (%) (Auto) 80.8H, Lymphocytes (%) (Auto) 8.8L, Monocytes (%) (Auto) 9.2H, Eosinophils (%) (Auto) 0.3, Basophils (%) (Auto) 0.3, Neutrophils # (Auto) 5.4, Lymphocytes # (Auto) 0.6L, Monocytes # (Auto) 0.6, Eosinophils # (Auto) 0.0, Basophils # (Auto) 0.0, Nucleated Red Blood Cells % (auto) 0.0 CBC/BMP Laboratory Tests 04/04/20 07:58 04/04/20 08:29 Microbiology Microbiology 03/26/20 Gram Stain - Final, Complete 03/26/20 Anaerobic Culture - Final, Complete 03/26/20 Body Fluid Culture - Final, Complete 03/26/20 Acid Fast Stain, Received Pending 03/26/20 Mycobacterial Culture, Received Pending 03/26/20 Fungal Smear, Received Pending 03/26/20 Fungal Culture, Received Pending 03/25/20 Gram Stain - Final, Complete 03/25/20 Sputum Culture - Final, Complete Discharge Medications Scheduled Ferrous Sulfate (Ferrous Sulfate) 325 Mg Tablet, 325 MG PO BID Guaifenesin (Mucinex) 600 Mg Tab.er.12h, 1,200 MG PO BID Levofloxacin (Levofloxacin) 750 Mg Tablet, 750 MG PO DAILY Levothyroxine Sodium (Synthroid) 75 Mcg Tablet, 75 MCG PO DAILY, (Reported) Allergies Coded Allergies: No Known Allergies (Unverified , 08/07/18) AURELIA COLLIER MD Apr 04, 2020 11:19
[2020-04-05] MEDS ORDERED: FERR325T3 PO (09:59)
[2020-04-05] MEDS ORDERED: LEVO750T13 PO (09:59)
--- NOTE | 2020-04-07 15:01 | REP ---
CHEST X-RAY: 2 VIEWS HISTORY: Loculated empyema. COMPARISON: Chest x-ray 03/31/20. FINDINGS: In the interval since yesterdays exam, the right sided percutaneous pigtail catheter has been withdrawn. An air fluid level persists in the anterior loculated pleural cavity similar to yesterdays study. There is blunting of the pleural angles bilaterally. There is volume loss in the right hemithorax and air bronchograms are seen in the right perihilar region with right perihilar soft tissue fullness. MTDD
--- NOTE | 2020-04-07 15:03 | REP ---
CHEST X-RAY: TWO VIEWS HISTORY: Loculated empyema. COMPARISON CHEST X-RAYS: 04/01/2020 and 03/31/2020. FINDINGS: An air fluid level persists in the anterior loculated pleural fluid collection, which was previously drained. This is unchanged. There is right apical pleural thickening. Air bronchograms and soft tissue fullness again seen in the right perihilar region. There is blunting of the left lateral and posterior pleural angles as well. No new parenchymal opacity. IMPRESSION: Stable chest x-ray findings. MTDD
--- NOTE | 2020-04-08 08:06 | REP ---
CHEST X-RAY: 2-VIEWS HISTORY: Loculated empyema. COMPARISON CHEST X-RAY: 04/03/2020 and 04/02/2020. FINDINGS: The previously noted anterior right thoracic pleural cavity persists with an air fluid level. Gradually decreasing amount of air. There is blunting of the pleural angles bilaterally. Perihilar opacity persists with air bronchograms and pleural opacities see in the apex on the right. No new infiltrate is seen. MTDD
[2020-04-18] MEDS ORDERED: AZEL1SPR3 NARES (10:13)
== END 2020-04-04 12:50 | disposition home or self-care (01) | DRG 720 ==
LOC: M ED 20:57 → M ED INP 03-25 04:05 → ENRESERV 03-25 04:14 → M MSPAV 03-25 05:26 → M PCU 03-28 15:53
PROVIDERS: ADMIT Internal Medicine; ATTEND Internal Medicine
PROC: 0W993ZZ Drainage of Right Pleural Cavity, Percutaneous Approach (ICD-10-PCS; principal; 2020-03-27 15:36)
PROC: 0W993ZZ Drainage of Right Pleural Cavity, Percutaneous Approach (ICD-10-PCS; 2020-03-28)
DX: A41.9 Sepsis, unspecified organism (principal); J96.01 Acute respiratory failure with hypoxia; J86.9 Pyothorax without fistula; J70.0 Acute pulmonary manifestations due to radiation; C34.11 Malignant neoplasm of upper lobe, right bronchus or lung; J43.9 Emphysema, unspecified; D50.9 Iron deficiency anemia, unspecified; E03.9 Hypothyroidism, unspecified; Z79.899 Other long term (current) drug therapy; Z87.891 Personal history of nicotine dependence

== ENCOUNTER 2020-04-05 09:12 | Inpatient (IN) | payer OTHER ==
[~2020-04-05] VITALS: Ht 152.4 cm; Wt 44.2 kg
[2020-04-05] MEDS: guaiFENesin ER 600 MG TAB PO SCH ×2 (09:00→20:23)
[~2020-04-05 09:12] MED LIST changes: +FERR325T18 PO; +IBUP-1022 PO; +IBUP1TAB7 PO; +MUCI600T31 PO
[2020-04-05] MEDS ORDERED: IPRATROPIUM 0.5MG/ALBUTEROL 2.5MG INH SOL UD 3ML (DUONEB) NEB ONE (09:30)
[2020-04-05] MEDS ORDERED: methylPREDNISolone 125MG 2ML VIAL IV ONE (09:45)
[2020-04-05] MEDS ORDERED: FERR325T3 PO (09:59)
[2020-04-05] MEDS ORDERED: LEVO750T13 PO (09:59)
--- NOTE | 2020-04-05 09:59 | REPVR ---
PROCEDURE INFORMATION: Exam: XR Chest, 1 View Exam date and time: 04/05/2020 9:26 AM Age: 59 years old Clinical indication: Shortness of breath; Additional info: SOB TECHNIQUE: Imaging protocol: XR of the chest Views: 1 view. COMPARISON: CR Chest, 2 view PA, Lat 04/04/2020 7:31 AM FINDINGS: Lungs: Asymmetric right-sided airspace disease and volume loss. Interstitial prominence. Pleural space: Asymmetric bilateral pleural effusions. Heart/Mediastinum: No cardiomegaly. Bones/joints: Unremarkable. IMPRESSION: Asymmetric right-sided airspace disease and volume loss, along with bilateral pleural effusions prior Electronically signed by: Deshaun Alberto On 04/05/2020 09:58:54 AM
[2020-04-05 10:30] LABS: BASO % 0.2 % (0.0-1.0); EOS % 0.1 % (0.0-3.0); HEMATOCRIT 35.8 % (36.0-47.0); HEMOGLOBIN 10.8 g/dl (12.0-15.5); LYMPH # 0.4 10^3/uL (1.5-5.0); LYMPH % 4.7 % (24.0-44.0); MEAN CORPUSCULAR HEMOGLOBIN 25.9 pg (27.0-33.0); MEAN CORPUSCULAR HGB CONC 30.2 g/dl (32.0-36.5); MEAN CORPUSCULAR VOLUME 85.9 fl (80.0-96.0); MONO # 0.4 10^3/uL (0.0-0.8); MONO % 4.6 % (0.0-5.0); NEUTROPHILS # 7.4 10^3/uL (1.5-8.5); NEUTROPHILS % 89.7 % (36.0-66.0); PLATELET COUNT, AUTOMATED 599 10^3/uL (150-450); RED BLOOD COUNT 4.17 10^6/uL (4.00-5.40); WHITE BLOOD COUNT 8.3 10^3/uL (4.0-10.0)
[2020-04-05] MEDS ORDERED: ACETAMINOPHEN TAB 650MG DOSE (2X325MG) PO ONE (12:00)
--- NOTE | 2020-04-05 12:07 | HPEPDOC ---
[facility] Medical History & Physical Date of Admission Apr 05, 2020 Date of Service: Apr 05, 2020 Attending Physician: Claire Lofton MD History and Physical CHIEF COMPLAINT: Increased SOB HISTORY OF PRESENT ILLNESS: Patient is a 59-year-old female with past medical history of right lung empyema status post drainage (03/30/20), adenocarcinoma of right upper lobe status post chemotherapy, radiation and immunotherapy, radiation serositis of the lung, recurrent tonsillitis, hypothyroidism, COPD who presented to [facility] emergency room with a chief complaint of increased shortness of breath beginning over the evening of 04/04/2020 worsening into AM of 04/05/2020. Patient was recently admitted 03/25/2020 until 04/04/2020 for sepsis secondary to right lung PNA with empyema s/p chest tube drainage and was discharged on antibiotics (to complete 14 days) yesterday. She was stable for discharge early in the day and states that later in the evening the patient developed increased shortness of breath. She complains of associated gurgling in her throat and "not being able to get air in". She states that at times she feels as though she has a "bubble in her throat" and once it bursts she is able to read better. Patient states at times she has difficulty swallowing and has difficulty clearing her secretions in her throat. She has had this issue in the past and states that it began after her radiation sessions for cancer. She currently denies chest pain, nausea, vomiting, fevers, chills, diarrhea. She says her shortness of breath worsened this morning. She states she has a nebulizer machine but cannot find tubing for it. She also states she does not have nebulizer medications at home to use the machine anyway. See review of systems below. In the emergency room the patient found to be 63% on room air and slightly tachycardic with a heart rate of 109, hypertensive. The patient was in mild respiratory distress initially. Chest x-ray showed to be similar compared to the last one on file; however, some small reaccumulation of right-sided pleural effusion. He was given steroids and nebulizer treatment. She states she felt improved when the steroids were given. Dr. Zepeda (her motorcycle mechanic apprentice) was contacted and case was discussed in detail. The patient was admitted for acute hypoxic respiratory failure, bilateral pleural effusions. REVIEW OF SYSTEMS: CONSTITUTIONAL: Denies lack of energy, loss of appetite, fever, night sweats EYES: Denies eye drainage, eye pain, visual changes, dry/irritated eye EARS, NOSE, MOUTH, THROAT: Denies difficulty hearing, ringing in ears, mouth sores, loose teeth, sore throat, facial numbness or pain NECK: Denies swollen glands CARDIOVASCULAR: Denies irregular heartbeat, racing heart, chest pains, swelling of feet or legs, pain in legs with walking RESPIRATORY: Denies night sweats, sputum production, oxygen at home, coughing up blood, cough lasting > 1 month GASTROINTESTINAL: Denies abdominal pain, constipation, bloody stool, diarrhea, heartburn, nausea, vomiting GENITOURINARY: Denies painful urination, bloody urine, frequent urination, urgency, leaking urine, impotence MUSCULOSKELETAL: Denies joint pain, muscle pain, leg swelling INTEGUMENTARY: Denies rash, itching, new skin lesion, change in existing skin lesion, hair loss or increase, breast changes. NEUROLOGICAL: Denies headaches, dizziness, difficulty walking, numbness or ti ngling PSYCHIATRIC: Denies depression, anxiety, recurrent bad thoughts, mood swings, hallucinations PAST MEDICAL HISTORY: 1. Right lung empyema s/p drainage 2. 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 Recurrent tonsillitis 5. Hypothyroidism 6. COPD PAST SURGICAL HISTORY: 1. Thoracentesis for chronic R pleural effusion (03/30/20) 2. Pericardiocentesis for chronic pericardial effusion 3. Thoracentesis for recent empyema 4. R shoulder surgery 5. SOCIAL HISTORY: Former smoker, smoked 1 ppd for 20 years, quit 14 years ago Occasional alcohol Denies illicit drugs FAMILY HISTORY: Noncontributory HOME MEDICATIONS: Please see below. PHYSICAL EXAMINATION: VS: Please see below CONSTITUTIONAL: No acute distress, resting comfortably, AAO x 3 EYES: PERRLA, EOM intact HENT, MOUTH: Normocephalic, atraumatic, moist mucous membranes, nasal cannula in place NECK: SUPPLE, no JVD, no lymphadenopathy, no carotid bruit CV: Regular rate and rhythm, S1S2 normal, no murmurs/rubs/gallops CHEST: Area of insertion of chest tube in right upper chest is clean, well healing, no pain on palpation RESPIRATORY: Rhonchi bilaterally, no exp wheezing. Decreased breath sounds bilaterally. no rales GI: thin abdomen, BS positive in 4 quadrants, soft, nontender, nondistended, no rebound or guarding, no organomegaly : Deferred MUSCULOSKELETAL: Normal ROM. No cyanosis, clubbing, swelling, joint deformity, extremity edema INTEGUMENTARY: Intact, no rashes, no lesions, no erythema NEUROLOGIC: Cranial Nerves II-XII are intact, no focal deficits PSYCHIATRIC: Mood and affect are normal LABORATORY DATA: Please see below . F/u trop, CMP MICROBIOLOGY: Blood cultures x 2 sets: pending Sputum Cx pending IMAGING: CT chest with contrast: pending CXR: Asymmetric right-sided airspace disease and volume loss, along with bilateral pleural effusions prior Echocardiogram 02/2020: 1. Normal left ventricular size and wall thickness. Low normal global left ventricular systolic function in limited views. 2. Normal left atrium. Normal right atrium and left ventricle. 3. Normal aortic root. 4. Trace pericardial effusion was noted. No evidence of cardiac tamponade. 5. Mildly calcified aortic valve with normal leaflet excursion. Mildly calcified mitral annulus with normal anterior mitral valve leaflet motion. Normal tricuspid valve. The pulmonic valve and proximal pulmonary artery branches were not well visualized. 6. The inferior vena cava was normal in size. Central venous pressure is most likely normal. 7. Doppler low normal global left ventricular systolic function. Not mentioned above, there are features consistent with grade 2 left ventricular systolic dysfunction. 8. Aortic valve sclerosis with mild aortic regurgitation, but no aortic stenosis. 9. Mitral annulus calcification with mild mitral regurgitation. 10. Mild tricuspid regurgitation with mild pulmonary hypertension. There was a peak velocity of 2.7 msec across the tricuspid valve. 11. Trace pericardial effusion. No evidence of cardiac tamponade. 12. This was compared with most recent echocardiogram of 12/07/2019 and at that time, moderate pericardial effusion was noted. 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 PLAN: Acute hypoxic respiratory failure with recent dx of pneumonia, empyema and bilateral pleural effusions. Difficulty clearing secretions which she says add to SOB. -BNP slightly more elevated but afebrile, WBC wnl. Upon review of CXR with Dr. Zepeda, maybe small reaccumulation of fluid on the right compared to last CXR on file. -Hx of radiation which can be cause of difficulty clearing secretions and difficulty swallowing per patient. -Started on xopenex ATC and PRN, humidified O2, mucinex, swallowing evaluation, levofloxacin -Last echo above, preserved EF -Supplemental O2, monitor I&Os -F/u CT chest with contrast, sputum and blood cultures -Dr. Zepeda (pulmonary) consulted to see Elevated BNP -Clinically patient not in decompensated heart failure -Echo above Adenocarcinoma of the lung -Was last seen by medical oncology 03/17/20 -follow-up medical oncology and repeat PET scan imaging Hypothyroidism -TSH noted -C/w Levothyroxine Anemia likely 2/2 iron deficiency - H/H stable - C/w Ferrous sulfate DVT prophylaxis - c/w Lovenox DISPOSITION: Admitted under inpatient status. Pulmonary consulted to follow. Plan is discharge back to home when medically improved. Vital Signs Vital Signs Date Time Temp Pulse Resp B/P (MAP) Pulse Ox O2 Delivery O2 Flow Rate FiO2 04/05/20 10:43 106 93 Nasal Cannula 5.0 04/05/20 10:13 161/81 (107) 04/05/20 09:55 96 04/05/20 09:25 98.0 38 Laboratory Data Labs 24H Laboratory Tests 2 04/05/20 10:08: Immature Granulocyte % (Auto) 0.7, Neutrophils (%) (Auto) 89.7H, Lymphocytes (%) (Auto) 4.7L, Monocytes (%) (Auto) 4.6, Eosinophils (%) (Auto) 0.1, Basophils (%) (Auto) 0.2, Neutrophils # (Auto) 7.4, Lymphocytes # (Auto) 0.4L, Monocytes # (Auto) 0.4, Eosinophils # (Auto) 0.0, Basophils # (Auto) 0.0, Nucleated Red Blood Cells % (auto) 0.0, TZ-Sph-U-Type Natriuretic Peptide 1387H 04/05/20 10:09: Lactic Acid Level 1.8 CBC/BMP Laboratory Tests 10/10/20 10:08 Microbiology Microbiology 04/05/20 Blood Culture, Received Pending Home Medications Scheduled Ferrous Sulfate (Ferrous Sulfate) 325 Mg Tablet.dr, 325 MG PO BID Levofloxacin (Levofloxacin) 750 Mg Tablet, 750 MG PO DAILY Levothyroxine Sodium (Synthroid) 75 Mcg Tablet, 75 MCG PO DAILY Allergies Coded Allergies: No Known Allergies (Unverified , 08/07/18) A-FIB/CHADSVASC A-FIB History Current/History of A-Fib/PAF?: No Current PO Anticoag Therapy: No Age/Risk Factor Scoring CHADSVASC: CHADSVASC Response (Comments) Value Age Risk Factor Age < 65 years old 0 Gender Risk Factor Female 1 Hx of CHF No 0 Hx of HTN No 0 Hx of Stroke/TIA/or VTE No 0 Hx of Diabetes No 0 Hx of Vascular Disease No 0 Total 1 Treatment Treatment ordered: Other Other anticoagulant ordered: Claire Arnett MD Apr 05, 2020 12:07
--- NOTE | 2020-04-05 12:14 | ECGEPIP ---
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 Order Number: [id number] Reading MD: Kristen Bradshaw Measurements Intervals [place] Rate: 106 P: 46 TX: 134 QRS: 71 QRSD: 76 T: 89 QT: 318 QTc: 423 Interpretive Statements SINUS TACHYCARDIA NONSPECIFIC ST & T-WAVE ABNORMALITY ABNORMAL RHYTHM ECG INCREASED RATE 03/27/20 Electronically Signed on 04-05-2020 12:14:26 EDT by Kristen Bradshaw
--- NOTE | 2020-04-05 12:15 | ECGEPIP ---
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 Order Number: [id number] Reading MD: Kristen Bradshaw Measurements Intervals [place] Rate: 98 P: 44 FL: 140 QRS: 62 QRSD: 73 T: 78 QT: 349 QTc: 447 Interpretive Statements SINUS RHYTHM NONSPECIFIC T-WAVE ABNORMALITY, SLIGHTLY MORE PRONOUNCED COMPARED 04/05/20 Electronically Signed on 04-05-2020 12:14:54 EDT by Kristen Bradshaw
[2020-04-05] MEDS ORDERED: LEVALBUTEROL 1.25 MG/0.5 ML CONCENTRATE NEB NEB PRN (13:00)
[2020-04-05] MEDS ORDERED: ISOVUE-370 76% 100ML VIAL As Ordered ONE (13:07)
[2020-04-05 13:30] VITALS: BP 130/70
--- NOTE | 2020-04-05 13:37 | REPVR ---
PROCEDURE INFORMATION: Exam: CT Chest With Contrast Exam date and time: 04/05/2020 1:13 PM Age: 59 years old Clinical indication: Other: Resp failure; Additional info: Acute hypoxic resp failure TECHNIQUE: Imaging protocol: Computed tomography of the chest with intravenous contrast. 3D rendering (Not supervised by radiologist): MIP and/or 3D reconstructed images were created by the technologist. Radiation optimization: All CT scans at this facility use at least one of these dose optimization techniques: automated exposure control; mA and/or kV adjustment per patient size (includes targeted exams where dose is matched to clinical indication); or iterative reconstruction. Contrast material: ISOVUE 370; Contrast volume: 75 ml; Contrast route: INTRAVENOUS (IV); COMPARISON: CT Chest without contrast 03/29/2020 12:24 PM FINDINGS: Lungs: Extensive residual right-sided airspace disease, disproportionately localized in the medial aspect of the right lung, along with volume loss. Bronchoscopy can be performed for further evaluation, if clinically indicated. Interstitial prominence and chronic granulomatous disease. Interval worsening in dependent left lower lobe airspace disease. Pleural space: Dependent moderate sized left pleural effusion again demonstrated. Interval removal of previously visualized right pleural catheter with loculated 9.7 by 6.0 by 7.3 cm air and fluid pleural collection in the inferior right hemithorax, consistent with empyema in the appropriate clinical setting. Additional small loculated posterior right pleural fluid collection superiorly. Heart: Pericardial effusion measuring 16 mm in maximum diameter. Aorta: Calcification in the normal caliber thoracic aorta. Lymph nodes: Subcentimeter lymph nodes. Upper abdomen: Markedly inhomogeneous attenuation in the liver. Wall thickening in the nondistended stomach. Bones/joints: Mild degenerative change . Soft tissues: Subcutaneous edema. IMPRESSION: 1. Interval removal of previously visualized right pleural catheter with loculated 9.7 by 6.0 by 7.3 cm air and fluid pleural collection in the inferior right hemithorax, consistent with empyema in the appropriate clinical setting. 2. Extensive residual right-sided airspace disease, disproportionately localized in the medial aspect of the right lung, along with volume loss. Bronchoscopy can be performed for further evaluation, if clinically indicated. 3. Additional findings as described above. The aforementioned findings initiated a critical results communication pathway. An addendum will be issued at the time of clincian notification. Electronically signed by: Deshaun Alberto On 04/05/2020 13:37:16 PM
[2020-04-05] MEDS ORDERED: MIDAZOLAM INJ 2MG/2ML VIAL (J2250 PER 1MG) As Ordered ONE (14:25)
[2020-04-05] MEDS ORDERED: flumazeniL 0.5 MG/5 ML VIAL As Ordered ONE (14:25)
[2020-04-05] MEDS ORDERED: LIDOCAINE 1% MDV 20ML VIAL As Ordered ONE (14:26)
[2020-04-05 14:36] LABS: INR 1.24; PROTHROMBIN TIME 15.9 SECONDS (12.5-14.3)
[2020-04-05 14:37] LABS: PARTIAL THROMBOPLASTIN TIME 24.2 SECONDS (24.2-38.5)
[2020-04-05 14:52] LABS: ALBUMIN 2.3 GM/DL (3.2-5.2); ALT/SGPT 12 U/L (12-78); BILIRUBIN,TOTAL 0.3 MG/DL (0.2-1.0); BLOOD UREA NITROGEN 10 MG/DL (7-18); CALCIUM LEVEL 8.6 MG/DL (8.5-10.1); CARBON DIOXIDE LEVEL 23 MEQ/L (21-32); CHLORIDE LEVEL 106 MEQ/L (98-107); CREATININE FOR GFR 0.43 MG/DL (0.55-1.30); GLOMERULAR FILTRATION RATE > 60.0 (>51); GLUCOSE, FASTING 108 MG/DL (70-100); SODIUM LEVEL 137 MEQ/L (136-145); TOTAL PROTEIN 6.6 GM/DL (6.4-8.2); TROPONIN I < 0.02 NG/ML (< 0.10)
[2020-04-05] MEDS ORDERED: LIDOCAINE 1% MDV 20ML VIAL SC ONE (15:30)
[2020-04-05 16:00] VITALS: BP 130/70
[2020-04-05] MEDS ORDERED: ACETAMINOPHEN TAB 650MG DOSE (2X325MG) PO PRN (16:00)
[2020-04-05] MEDS ORDERED: ONDANSETRON 4MG/2ML VIAL IV PRN (16:00)
[2020-04-05] MEDS ORDERED: NORCO, ANEXSIA 5/325MG TABLET (HYDROcodone/ACETAMINOPHEN) PO PRN (16:00)
[2020-04-05] MEDS ORDERED: BISACODYL 10 MG SUPP PR PRN (16:00)
[2020-04-05] MEDS ORDERED: PERCOCET 5MG/325MG TAB PO PRN ×2 (16:00)
[2020-04-05] MEDS: LEVALBUTEROL 1.25 MG/0.5 ML CONCENTRATE NEB NEB SCH ×2 (16:02→19:44)
--- NOTE | 2020-04-05 16:21 | REPVR ---
PROCEDURE INFORMATION: Exam: XR Chest, 1 View Exam date and time: 04/05/2020 3:59 PM Age: 59 years old Clinical indication: Other: Pleural effusion; Additional info: Chest tube placement TECHNIQUE: Imaging protocol: XR of the chest Views: 1 view. COMPARISON: CT Chest with contrast 04/05/2020 1:09 PM FINDINGS: Lungs: Extensive right-sided airspace disease and volume loss again demonstrated. Interstitial prominence. New para bowel dilatation in the visualized upper abdomen. Pleural space: Termination of pleural catheter overlying the left lung base, with interval improvement in left pleural effusion. Large right pleural fluid collection, in the setting of CT detected empyema. Heart/Mediastinum: No cardiomegaly. Bones/joints: Mild scoliosis and degenerative change. IMPRESSION: 1. Termination of pleural catheter overlying the left lung base, with interval improvement in left pleural effusion. 2. Extensive right-sided airspace disease and volume loss again demonstrated. 3. Large right pleural fluid collection, in the setting of CT detected empyema. Electronically signed by: Deshaun Alberto On 04/05/2020 16:21:09 PM
[2020-04-05 16:42] LABS: PH BODY FLUID > 7.800 UNITS (NOT ESTABLISHED); SOURCE, BODY FLUID pH PLEURAL
[2020-04-05 17:03] LABS: APPEARANCE, BODY FLUID HAZY (CLEAR); PLEURAL FL COLOR YELLOW (COLORLESS); SOURCE, BODY FLUID PLEURAL
[2020-04-05] MEDS: HYDROmorphone 2 MG TAB PO PRN ×2 (17:04→23:26)
[2020-04-05 17:07] LABS: AMYLASE, BODY FLUID 25 U/L (NOT ESTABLISHED); CHOLESTEROL, BODY FLUID < 50 MG/DL (NOT ESTABLISHED); LDH, BODY FLUID 121 U/L (NOT ESTABLISHED); SOURCE, BODY FLUID ALBUMIN PLEURAL; SOURCE, BODY FLUID AMYLASE PLEURAL; SOURCE, BODY FLUID CHOL PLEURAL; SOURCE, BODY FLUID GLUCOSE PLEURAL; SOURCE, BODY FLUID LDH PLEURAL; SOURCE, BODY FLUID TOT PROTEIN PLEURAL; SOURCE, BODY FLUID TRIG PLEURAL; TOTAL PROTEIN, BODY FLUID 2.8 G/DL (NOT ESTABLISHED); TRIGLYCERIDE, BODY FLUID 18 MG/DL (NOT ESTABLISHED)
[2020-04-05] MEDS: KETOROLAC 30 MG/ML 1ML VIAL IV SCH (17:55)
[2020-04-05 18:07] LABS: LDH LACTATE DEHYDROGENASE 199 U/L (84-246)
[2020-04-05] MEDS: ENOXAPARIN 60MG/0.6ML SYRINGE (J1650 PER 10MG) SC SCH (18:31)
[2020-04-05 20:00] VITALS: BP 104/64
[2020-04-05] MEDS: FERROUS SULFATE 325MG TAB PO SCH (20:22)
[2020-04-05] MEDS: DOCUSATE SODIUM 100 MG CAP PO SCH (20:23)
[2020-04-05] MEDS ORDERED: ENOXAPARIN 30MG/0.3ML SYRINGE (J1650 PER 10MG) SC SCH (21:00)
[2020-04-05] MEDS ORDERED: ENOXAPARIN 40MG/0.4ML SYRINGE (J1650 PER 10MG) SC SCH (21:00)
[2020-04-06] VITALS: BP 110/60
[2020-04-06] MEDS: LEVALBUTEROL 1.25 MG/0.5 ML CONCENTRATE NEB NEB SCH ×6 (00:16→19:30)
[2020-04-06 04:00] VITALS: BP 107/65
[2020-04-06] MEDS: ENOXAPARIN 60MG/0.6ML SYRINGE (J1650 PER 10MG) SC SCH ×2 (05:07→17:10)
[2020-04-06] MEDS: LEVOTHYROXINE 75MCG TABLET (0.075MG) PO SCH (05:07)
[2020-04-06] MEDS: HYDROmorphone 2 MG TAB PO PRN ×3 (05:07→17:09)
[2020-04-06] MEDS: LevoFLOXacin 750 MG TABLET PO SCH (05:12)
[2020-04-06 05:14] LABS: BASO % 0.1 % (0.0-1.0); HEMATOCRIT 31.2 % (36.0-47.0); HEMOGLOBIN 9.4 g/dl (12.0-15.5); LYMPH # 0.4 10^3/uL (1.5-5.0); LYMPH % 3.3 % (24.0-44.0); MEAN CORPUSCULAR HEMOGLOBIN 25.7 pg (27.0-33.0); MEAN CORPUSCULAR HGB CONC 30.1 g/dl (32.0-36.5); MEAN CORPUSCULAR VOLUME 85.2 fl (80.0-96.0); MONO # 0.4 10^3/uL (0.0-0.8); MONO % 2.9 % (0.0-5.0); NEUTROPHILS # 11.7 10^3/uL (1.5-8.5); NEUTROPHILS % 93.2 % (36.0-66.0); PLATELET COUNT, AUTOMATED 687 10^3/uL (150-450); RED BLOOD COUNT 3.66 10^6/uL (4.00-5.40); WHITE BLOOD COUNT 12.5 10^3/uL (4.0-10.0)
[2020-04-06] MEDS: KETOROLAC 30 MG/ML 1ML VIAL IV SCH ×3 (05:24→18:59)
[2020-04-06 05:54] LABS: ALBUMIN 2.3 GM/DL (3.2-5.2); ALT/SGPT 13 U/L (12-78); BILIRUBIN,TOTAL 0.2 MG/DL (0.2-1.0); BLOOD UREA NITROGEN 17 MG/DL (7-18); CALCIUM LEVEL 8.5 MG/DL (8.5-10.1); CARBON DIOXIDE LEVEL 25 MEQ/L (21-32); CHLORIDE LEVEL 106 MEQ/L (98-107); GLOMERULAR FILTRATION RATE > 60.0 (>51); GLUCOSE, FASTING 177 MG/DL (70-100); POTASSIUM SERUM 4.2 MEQ/L (3.5-5.1); SODIUM LEVEL 140 MEQ/L (136-145); TOTAL PROTEIN 6.7 GM/DL (6.4-8.2)
[2020-04-06 07:52] VITALS: BP 100/70
[2020-04-06 08:00] VITALS: BP 100/70
[2020-04-06] MEDS ORDERED: DORNASE INHALATION SOLN 1 MG/ML 2.5 ML AMP (J7639 PER 1MG) INH SCH (08:00)
[2020-04-06] MEDS: MOM 30ML SUSPENSION UDC PO SCH (09:00)
[2020-04-06] MEDS: DOCUSATE SODIUM 100 MG CAP PO SCH ×2 (09:00→20:15)
[2020-04-06] MEDS: guaiFENesin ER 600 MG TAB PO SCH ×2 (10:46→20:15)
[2020-04-06] MEDS: FERROUS SULFATE 325MG TAB PO SCH ×2 (10:46→20:15)
[2020-04-06] MEDS: methylPREDNISolone 40MG 1ML VIAL IV SCH ×2 (10:47→18:58)
[2020-04-06] MEDS: PANTOPRAZOLE 40MG TAB (PROTONIX) PO SCH (10:47)
[2020-04-06] MEDS: SODIUM CHLORIDE HYPERTONIC 3% 15ML NEB SOL INH SCH ×3 (11:19→19:30)
--- NOTE | 2020-04-06 12:07 | IPNPDOC ---
Date Seen The patient was seen on 04/06/20. Progress Note SUBJECTIVE: Started on lovenox BID for left pulmonary artery embolus reported by Dr. Harman. Study was CT with contrast but not specifically to look for PE's- resubmitted to radiology to see if they can comment on pulmonary emboli/embolus as seen to try and avoid additional testing. Drain placed to drain left pleural effusion, fluid studies pending. Total of 1 liter out since placement on 04/05. Reports same difficulty to take in air at times due to "something in my throat" but saturating well only on 2 L now. Has pain in left lower back where drain in place. Denies chest pain, worsening SOB, fevers, chill, n/v/d. OBJECTIVE: PHYSICAL EXAMINATION: VS: Please see below CONSTITUTIONAL: No acute distress, resting comfortably, AAO x 3 EYES: PERRLA, EOM intact HENT, MOUTH: Normocephalic, atraumatic, moist mucous membranes, nasal cannula in place NECK: SUPPLE, no JVD, no lymphadenopathy, no carotid bruit CV: Regular rate and rhythm, S1S2 normal, no murmurs/rubs/gallops CHEST: Area of insertion of chest tube in right upper chest is clean, well healing, no pain on palpation BACK: left posterior back pigtail catheter in place, tender to touch, no erythema or increased swelling RESPIRATORY: Rhonchi bilaterally slightly improved , no exp wheezing. no rales GI: thin abdomen, BS positive in 4 quadrants, soft, nontender, nondistended, no rebound or guarding, no organomegaly : Deferred MUSCULOSKELETAL: Normal ROM. No cyanosis, clubbing, swelling, joint deformity, extremity edema INTEGUMENTARY: Intact, no rashes, no lesions, no erythema NEUROLOGIC: Cranial Nerves II-XII are intact, no focal deficits PSYCHIATRIC: Depressed mood and affect LABORATORY DATA: Please see below MICROBIOLOGY: Blood cultures x 2 sets: pending Sputum Cx pending IMAGING: CT chest with contrast 04/05/20: 1. Interval removal of previously visualized right pleural catheter with loculated 9.7 by 6.0 by 7.3 cm air and fluid pleural collection in the inferior right hemithorax, consistent with empyema in the appropriate clinical setting. 2. Extensive residual right-sided airspace disease, disproportionately localized in the medial aspect of the right lung, along with volume loss. Bronchoscopy can be performed for further evaluation, if clinically indicated. 3. Dependent moderate sized left pleural effusion demonstrated. Echocardiogram 02/2020: 1. Normal left ventricular size and wall thickness. Low normal global left ventricular systolic function in limited views. 2. Normal left atrium. Normal right atrium and left ventricle. 3. Normal aortic root. 4. Trace pericardial effusion was noted. No evidence of cardiac tamponade. 5. Mildly calcified aortic valve with normal leaflet excursion. Mildly calcified mitral annulus with normal anterior mitral valve leaflet motion. Normal tricuspid valve. The pulmonic valve and proximal pulmonary artery branches were not well visualized. 6. The inferior vena cava was normal in size. Central venous pressure is most likely normal. 7. Doppler low normal global left ventricular systolic function. Not mentioned above, there are features consistent with grade 2 left ventricular systolic dysfunction. 8. Aortic valve sclerosis with mild aortic regurgitation, but no aortic stenosis. 9. Mitral annulus calcification with mild mitral regurgitation. 10. Mild tricuspid regurgitation with mild pulmonary hypertension. There was a peak velocity of 2.7 msec across the tricuspid valve. 11. Trace pericardial effusion. No evidence of cardiac tamponade. 12. This was compared with most recent echocardiogram of 12/07/2019 and at that time, moderate pericardial effusion was noted. 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 PLAN: Acute hypoxic respiratory failure with recent dx of pneumonia, empyema and bilateral pleural effusions, new pulmonary embolus likely. Difficulty clearing secretions which she says add to SOB. -S/p pigtail catheter placement 04/05/20, total of 1 L out since placement. -Decreased O2 requirement-only on 2 L NC now -Hx of radiation which can be cause of difficulty clearing secretions and difficulty swallowing per patient. -CT chest with contrast submitted to be reread to further comment on likely left pulmonary artery embolus -Last echo above, preserved EF -Supplemental O2, monitor I&Os -C/w xopenex ATC and PRN, humidified O2, mucinex, swallowing evaluation, levofloxacin, BID lovenox -F/u sputum cx, blood cultures -Dr. Zepeda (pulmonary) and Dr. Harman (thoracic surgery) consulted Elevated BNP -BNP >1380, prior on file 1043 in 02/2020 -Does not show s/s of fluid overload -Echo from 02/2020 above -16 mm pericardial effusion noted on CT chest- will discuss with Dr. Harman -Andrew intermittently PRN Left pulmonary artery embolus? -Sedentary lifestyle, known carcinoma- RF -Will resubmit to radiology to comment further, as CT chest with contrast done was not specifically to look for PE -On therapeutic dosing lovenox BID Pericardial effusion -16 mm in size currently -Echo 02/2020 showed to be mild with no evidence of cardiac tamponade -Echo prior in 11/2019 (according to records) showed to be moderate in size -Denies chest pain, increased SOB, trops normal Adenocarcinoma of the lung -Was last seen by medical oncology 03/17/20, follows with Dr. Meade -follow-up medical oncology and repeat PET scan imaging Hypothyroidism -TSH noted -C/w Levothyroxine Anemia likely 2/2 iron deficiency - H/H stable - C/w Ferrous sulfate DVT prophylaxis - c/w Lovenox DISPOSITION: Admitted under inpatient status. Pulmonary and thoracic surgery consulted. Plan is discharge back to home when medically improved. VS, I&O, 24H, Fishbone Vital Signs/I&O Vital Signs Date Time Temp Pulse Resp B/P (MAP) Pulse Ox O2 Delivery O2 Flow Rate FiO2 04/06/20 11:15 20 04/06/20 08:43 92 Nasal Cannula 2.0 04/06/20 07:52 97.1 95 100/70 (80) 04/06/20 05:07 96 I&O- Last 24 Hours up to 6 AM 04/06/20 06:00 Intake Total 0 ml Output Total 1015 ml Balance -1015 ml Laboratory Data 24H LABS Laboratory Tests 2 04/05/20 14:12: Prothrombin Time 15.9H, Prothromb Time International Ratio 1.24, Activated Partial Thromboplast Time 24.2L, Anion Gap 8, Glomerular Filtration Rate > 60.0, Calcium Level 8.6, Total Bilirubin 0.3, Aspartate Amino Transf (AST/SGOT) 27, Alanine Aminotransferase (ALT/SGPT) 12, Alkaline Phosphatase 148H, Lactate Dehydrogenase 199, Troponin I < 0.02, Total Protein 6.6, Albumin 2.3L, Albumin/Globulin Ratio 0.5L 04/05/20 15:59: Body Fluid pH > 7.800, Body Fluid pH Source PLEURAL, Body Fluid WBC (Auto) 183H, Body Fluid RBC (Auto) 2, Body Fluid Mononuclear Cells % Auto 92.9H, Fluid Polymorphonuclear Cell % Auto 7.1H, Body Fluid Glucose Source PLEURAL, Body Fluid Glucose 111, Body Fluid Protein Source PLEURAL, Body Fluid Total Protein 2.8, Body Fluid Albumin Source PLEURAL, Body Fluid Albumin 1.2, Body Fluid LDH Source PLEURAL, Body Fluid Lactate Dehydrogenase 121, Body Fluid Amylase Source PLEURAL, Body Fluid Amylase 25, Body Fluid Cholesterol < 50, Body Fluid Cholesterol Source PLEURAL, Body Fluid Triglyceride Source PLEURAL, Body Fluid Triglycerides 18, Pleural Fluid Source PLEURAL, Pleural Fluid Color YELLOW, Pleural Fluid Appearance HAZY 04/06/20 04:45: Anion Gap 9, Glomerular Filtration Rate > 60.0, Calcium Level 8.5, Total Bilirubin 0.2, Aspartate Amino Transf (AST/SGOT) 19, Alanine Aminotransferase (ALT/SGPT) 13, Alkaline Phosphatase 148H, Total Protein 6.7, Albumin 2.3L, Album in/Globulin Ratio 0.5L, Immature Granulocyte % (Auto) 0.5, Neutrophils (%) (Auto) 93.2H, Lymphocytes (%) (Auto) 3.3L, Monocytes (%) (Auto) 2.9, Eosinophils (%) (Auto) 0.0, Basophils (%) (Auto) 0.1, Neutrophils # (Auto) 11.7H, Lymphocytes # (Auto) 0.4L, Monocytes # (Auto) 0.4, Eosinophils # (Auto) 0.0, Basophils # (Auto) 0.0, Nucleated Red Blood Cells % (auto) 0.0 CBC/BMP Laboratory Tests 04/05/20 14:12 04/06/20 04:45 Microbiology Microbiology 04/05/20 Acid Fast Stain, Received Pending 04/05/20 Mycobacterial Culture, Received Pending 04/05/20 Fungal Smear, Received Pending 04/05/20 Fungal Culture, Received Pending 04/05/20 Gram Stain - Final, Resulted 04/05/20 Anaerobic Culture, Resulted Pending 04/05/20 Body Fluid Culture, Received Pending 04/05/20 Blood Culture, Received Pending 04/05/20 Blood Culture - Preliminary, Resulted No growth after 24 hours . All specim... Current Medications Current Medications Medications (Trade) Dose Ordered Sig/Miriam Route PRN Reason Start Time Stop Time Status Last Admin Dose Admin Acetaminophen (Tylenol Tab) 650 mg Q6HP PRN PO T > 101.5 or QUINN 04/05/20 16:00 Acetaminophen/ Hydrocodone Bitart ([place]udson, Anexsia 5/325) 1 tab Q3H PRN PO MILD PAIN (PS 1-4) 04/05/20 16:00 04/05/20 16:39 DC Acetylcysteine (Mucomyst 20% (200mg/ml)) 400 mg RBID INH 04/06/20 08:00 Bisacodyl (Dulcolax Suppository) 10 mg Q4HP PRN NC CONSTIPATION 04/05/20 16:00 Docusate Sodium (Colace) 100 mg BID PO 04/05/20 21:00 Dornase Brian (Pulmozyme) 2.5 mg RBID INH 04/06/20 08:00 04/06/20 11:26 DC Enoxaparin Sodium (Lovenox) 30 mg QHS SC 04/05/20 21:00 04/05/20 16:37 DC Enoxaparin Sodium (Lovenox) 40 mg DAILY@2100 SC 04/05/20 21:00 04/05/20 12:10 DC Enoxaparin Sodium (Lovenox) 50 mg Q12H SC 04/05/20 18:00 04/06/20 05:07 Ferrous Sulfate (Ferrous Sulfate) 325 mg BID PO 04/05/20 21:00 04/06/20 10:46 Guaifenesin (Mucinex Tab Er) 1,200 mg BID PO 04/05/20 09:00 04/06/20 10:46 Home Med (Med Rec Complete!) ASDIRECTED XX 04/05/20 10:00 04/05/20 10:03 DC Hydromorphone HCl (Dilaudid) 1 mg Q6HP PRN PO MODERATE/SEVERE PAIN (PS 5-10) 04/05/20 16:45 04/06/20 10:45 Ketorolac Tromethamine (ToRADol) 30 mg Q6HP IV 04/05/20 16:00 04/10/20 15:59 04/06/20 11:23 Levalbuterol HCl (Xopenex Neb) 1.25 mg Q2HP PRN NEB SHORTNESS OF BREATH 04/05/20 13:00 04/06/20 10:03 Levalbuterol HCl (Xopenex Neb) 1.25 mg RQ4H NEB 04/05/20 16:00 04/06/20 11:18 Levofloxacin (Levaquin) 750 mg DAILY@0600 PO 04/06/20 06:00 04/06/20 05:12 Levothyroxine Sodium (Synthroid) 75 mcg DAILY@0600 PO 04/06/20 06:00 04/06/20 05:07 Magnesium Hydroxide (Milk Of Magnesia) 30 ml DAILY PO 04/06/20 09:00 Methylprednisolone (SOLU medrol) 40 mg Q8H IV 04/06/20 11:00 04/06/20 10:47 Ondansetron HCl (ZOFRAN INJection) 4 mg Q4HP PRN IV NAUSEA 04/05/20 16:00 Oxycodone/ Acetaminophen (Percocet 5mg/ 325mg Tablet) 1 tab Q4H PRN PO MODERATE PAIN (PS 5-7) 04/05/20 16:00 04/05/20 16:39 DC Oxycodone/ Acetaminophen (Percocet 5mg/ 325mg Tablet) 2 tab Q4H PRN PO SEVERE PAIN (PS 8-10) 04/05/20 16:00 04/05/20 16:39 DC Pantoprazole Sodium (Protonix) 40 mg DAILY PO 04/06/20 09:00 04/06/20 10:47 Sodium Chloride (Sodium Chloride 3% Neb Tricia) 3 ml RQ8H INH 04/06/20 08:00 Allergies Coded Allergies: No Known Allergies (Unverified , 08/07/18) Claire Lofton MD Apr 06, 2020 12:07
[2020-04-06] MEDS: ACETYLCYSTEINE 20% 4 ML VIAL (200MG/ML) INH SCH ×2 (14:30→19:30)
[2020-04-06 16:00] VITALS: BP 140/66
[2020-04-06 20:00] VITALS: BP 125/79
[2020-04-07] VITALS (7 sets, daily range): BP systolic 93–125; BP diastolic 52–67; PULSE 116
[2020-04-07] MEDS: LEVALBUTEROL 1.25 MG/0.5 ML CONCENTRATE NEB NEB SCH ×7 (00:03→23:33)
--- NOTE | 2020-04-07 00:51 | REPVR ---
PROCEDURE INFORMATION: Exam: XR Chest, 2 Views Exam date and time: 04/06/2020 8:00 AM Age: 59 years old Clinical indication: Other: Pleural effusion TECHNIQUE: Imaging protocol: XR of the chest Views: 2 views. COMPARISON: CR PORTABLE CHEST X-RAY 04/05/2020 3:52 PM FINDINGS: Lungs: A left base pigtail chest tube remains in position. Persistent consolidation in the right suprahilar region with air bronchograms which is similar. Pleural space: Small left pleural effusion which appears slightly increased with resolution of loculated gas in the lateral left base. Loculated right hydropneumothorax anteriorly in the mid hemithorax which is new since the prior study with new accumulation of gas. Right apical pleural thickening is similar. Right pleural fluid in the base is slightly decreased having been replaced with the gas. Heart/Mediastinum: The heart and mediastinum are unchanged. Bones/joints: Unremarkable. IMPRESSION: 1. Slightly increased accumulation of fluid in the lateral left base since 04/05/2020 with decreased gas. 2. New loculated right hydropneumothorax with gas replacing loculated right pleural fluid in the right base since the prior study. 3. Otherwise stable chest. Electronically signed by: Gab Haji On 04/07/2020 00:50:50 AM
[2020-04-07] MEDS: methylPREDNISolone 40MG 1ML VIAL IV SCH ×3 (03:48→18:55)
[2020-04-07] MEDS: KETOROLAC 30 MG/ML 1ML VIAL IV SCH ×3 (03:49→20:33)
[2020-04-07 05:21] LABS: BASO % 0.1 % (0.0-1.0); EOS % 0.1 % (0.0-3.0); HEMATOCRIT 27.2 % (36.0-47.0); HEMOGLOBIN 8.1 g/dl (12.0-15.5); LYMPH # 0.4 10^3/uL (1.5-5.0); LYMPH % 2.5 % (24.0-44.0); MEAN CORPUSCULAR HEMOGLOBIN 25.4 pg (27.0-33.0); MEAN CORPUSCULAR HGB CONC 29.8 g/dl (32.0-36.5); MEAN CORPUSCULAR VOLUME 85.3 fl (80.0-96.0); MONO # 0.3 10^3/uL (0.0-0.8); MONO % 1.8 % (0.0-5.0); NEUTROPHILS # 14.3 10^3/uL (1.5-8.5); PLATELET COUNT, AUTOMATED 594 10^3/uL (150-450); RED BLOOD COUNT 3.19 10^6/uL (4.00-5.40); WHITE BLOOD COUNT 15.1 10^3/uL (4.0-10.0)
[2020-04-07 05:48] LABS: ALBUMIN 2.3 GM/DL (3.2-5.2); ALT/SGPT 13 U/L (12-78); BILIRUBIN,TOTAL 0.3 MG/DL (0.2-1.0); BLOOD UREA NITROGEN 23 MG/DL (7-18); CALCIUM LEVEL 8.7 MG/DL (8.5-10.1); CARBON DIOXIDE LEVEL 26 MEQ/L (21-32); CHLORIDE LEVEL 105 MEQ/L (98-107); CREATININE FOR GFR 0.73 MG/DL (0.55-1.30); GLOMERULAR FILTRATION RATE > 60.0 (>51); GLUCOSE, FASTING 202 MG/DL (70-100); POTASSIUM SERUM 3.8 MEQ/L (3.5-5.1); SODIUM LEVEL 138 MEQ/L (136-145); TOTAL PROTEIN 6.4 GM/DL (6.4-8.2)
[2020-04-07] MEDS: ENOXAPARIN 60MG/0.6ML SYRINGE (J1650 PER 10MG) SC SCH (06:05)
[2020-04-07] MEDS: LEVOTHYROXINE 75MCG TABLET (0.075MG) PO SCH (06:05)
[2020-04-07] MEDS: LevoFLOXacin 750 MG TABLET PO SCH (06:05)
[2020-04-07] MEDS: HYDROmorphone 2 MG TAB PO PRN ×3 (06:12→21:54)
[2020-04-07] MEDS: SODIUM CHLORIDE HYPERTONIC 3% 15ML NEB SOL INH SCH ×3 (07:14→23:33)
[2020-04-07] MEDS: ACETYLCYSTEINE 20% 4 ML VIAL (200MG/ML) INH SCH ×2 (07:14→19:47)
--- NOTE | 2020-04-07 08:26 | IPN ---
DATE: 04/06/2020 SUBJECTIVE: Patient is well known to me at my practice for a history of lung malignancy. She has been recently admitted for empyema, and returned with increased shortness of breath and hypoxia. This morning, she is quite tearful, stating that she feels that she cannot breathe again. Her symptoms resolved she states shortly after receiving I.V. steroids and that that is the only thing that ever really helped her. She states that she has tried nebulizers and this has not helped her symptoms. She has audible rhonchi from the doorway. She states she is feeling short of breath now. She felt like something was kicking the left side of her chest. She has reported recent weight loss and she does show a picture of something that she coughed up that appears to be a foreign body due to the fact that there is bluish discoloration, other parts of it are brownish red, very solid. I cannot exclude a broncholith. PHYSICAL EXAMINATION: VITALS: Temperature 97.1, pulse 95, respiratory rate 20, blood pressure 100/70 with a mean arterial pressure 80, oxygen saturation initially reported as 97% on 2 liters; this morning now 92% on 2 liters, previously 84% on room air. GENERAL: Patient is sitting in bed, tachypneic, audible rhonchi from the airway, tearful. HEENT: Pupils equal and reactive to light. Mucosa membranes are moist, without lesions. Oropharynx without erythema or exudate. Tongue midline. She is edentulous. NECK: Supple. No tracheal deviation or mass. LYMPHATICS: No cervical, supraclavicular, or axillary adenopathy. CARDIAC: Distant S1, S2 without audible murmur, rub, or gallop. No elevated JVP. No peripheral edema. PULMONARY: Diffusely abnormal breath sounds, rhonchus breath sounds throughout the left side. There is no expiratory wheeze. There is no prolongation of expiratory phase. The right side has decreased breath sounds throughout two- thirds of the base. There is dullness to percussion two-thirds of the base on the right. The chest tube site posteriorly is without erythema or exudate. ABDOMEN: Soft, nontender, non-distended. No hepatosplenomegaly. EXTREMITIES: No cyanosis, clubbing, or edema. SKIN: No rash, jaundice or bruising. MUSCULOSKELETAL: Decreased muscle tone. No evidence of joint fracture or effusion. NEUROLOGIC: No unilateral weakness or asterixis. LABORATORY DATA: Sodium 140, potassium 4.2, chloride 106, bicarb 25, BUN 17, creatinine 0.77 with glucose 177. White blood cell count 12.5, hemoglobin 9.4, platelets elevated at 687,000. IMAGING STUDIES: Chest x-ray from this morning now shows an air fluid level on the right. The chest tube is present on the left, showing near resolution of the pleural effusion. 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 Looking back, there may be a small amount of progression of the abnormalities from 2019 till now as far as the mediastinal scarring/mass. On 03/28/2020, the pleural fluid was negative for malignancy from the right. Pleural fluid currently for cytology is pending from the left, but it is negative for organisms at this point in time. The prior pleural fluid from 03/28/2020 had much more pmn's than the current fluid from the left. IMPRESSION: 1. Bronchiectasis with mucous plugging: I believe this is the main symptom that she is having that is causing her shortness of breath. Will focus on mucociliary clearance. Added an Acapella. Because she perceived benefit from the use of steroids, I am in agreement with using a short term course of steroids to help her symptoms. She does understand this increases her risk of gastritis or ulcer especially when she is on anticoagulation and Ketorolac. She expresses understanding, but states that that is the medication that made her feel the best and it is better than how she feels now and desperately wants this medication. As she understands the risks and benefits of the medication, I am willing to prescribe the short term with close monitoring. 2. Abnormal CT: Patient has had fluid on the right chest from a trapped lung from prior malignancy for a long period of time, recently with empyema. Platelet level is elevated, suggesting ongoing inflammation. I agree with continuing antibiotic therapy, watching close for clinical deterioration. I cannot rule out the possibility of malignancy on the right, especially with her new symptoms. This may warrant bronchoscopy, however at this point in time, she was recently started on anticoagulation and therefore will follow for clinical course. 3. Possible pulmonary embolism with thrombocytosis: I agree with full anticoagulation as prescribed by Dr. Harman. At this point in time, she is high risk for thromboembolic disease and in the left upper lobe takeoff of pulmonary artery, there does appear to be a filling defect, it is not clear whether or not this is a true pulmonary embolism. Therefore given her thrombocytosis and her clinical history, I believe this warrants full anticoagulation. She does not seem to have any lower extremity symptoms and therefore I do not believe lower extremity ultrasound would be helpful. Her anatomy is such that I do not believe a VQ scan would be any more beneficial. 4. History of primary lung cancer: At this point in time likely fighting an infectious disease rather than return of malignancy, however, I cannot exclude the possibility of ongoing malignancy in the right upper chest, may require bronchoscopy in the near future. MTDD
--- NOTE | 2020-04-07 08:52 | REPVR ---
PROCEDURE INFORMATION: Exam: XR Chest, 2 Views Exam date and time: 04/07/2020 8:17 AM Age: 59 years old Clinical indication: Condition or disease; Other: F/u exam; Additional info: Pleural effusion TECHNIQUE: Imaging protocol: XR of the chest Views: 2 views. COMPARISON: CR Chest, 2 view PA, Lat 04/06/2020 7:51 AM FINDINGS: Lungs: There are again areas of consolidation throughout much of the right lung. Mild airspace opacity is again present at the left base. Pleural space: Left basilar pleural pigtail catheter is again present. A small left pleural effusion is again present. There is again a large loculated right-sided hydropneumothorax, without significant change. No left pneumothorax. Heart/Mediastinum: The cardiomediastinal silhouette is fairly stable in appearance. Bones/joints: Unremarkable. IMPRESSION: Stable radiographic appearance of the chest since one day prior. Electronically signed by: Michael Hayes On 04/07/2020 08:52:20 AM
[2020-04-07] MEDS: MOM 30ML SUSPENSION UDC PO SCH (09:00)
[2020-04-07] MEDS: DOCUSATE SODIUM 100 MG CAP PO SCH ×2 (09:00→20:27)
[2020-04-07] MEDS: PANTOPRAZOLE 40MG TAB (PROTONIX) PO SCH (09:54)
[2020-04-07] MEDS: FERROUS SULFATE 325MG TAB PO SCH ×2 (09:54→20:32)
[2020-04-07] MEDS: guaiFENesin ER 600 MG TAB PO SCH (09:55)
[2020-04-07] MEDS ORDERED: ISOVUE-370 76% 100ML VIAL As Ordered ONE (10:24)
--- NOTE | 2020-04-07 11:17 | REPVR ---
PROCEDURE INFORMATION: Exam: CT Angiography Chest With Contrast Exam date and time: 04/07/2020 10:35 AM Age: 59 years old Clinical indication: Chest pain; Additional info: R/O pe TECHNIQUE: Imaging protocol: Computed tomographic angiography of the chest with intravenous contrast. 3D rendering (Not supervised by radiologist): MIP and/or 3D reconstructed images were created by the technologist. Radiation optimization: All CT scans at this facility use at least one of these dose optimization techniques: automated exposure control; mA and/or kV adjustment per patient size (includes targeted exams where dose is matched to clinical indication); or iterative reconstruction. Contrast material: ISOVUE 370; Contrast volume: 75 ml; Contrast route: INTRAVENOUS (IV); COMPARISON: CT Chest with contrast 04/05/2020 1:09:09 PM FINDINGS: Tubes, catheters and devices: A left pleural pigtail catheter has been placed. Pulmonary arteries: No pulmonary embolus is identified. Aorta: The thoracic aorta is nonaneurysmal. Lungs: There are again operative changes of partial right pneumonectomy. Extensive residual airspace opacity is again present along the medial and posteroinferior aspects of the right lung. The left lung has re-expanded. There are patchy and dense ground-glass and airspace opacities inferiorly in the left lung, particularly in the lower lobe, suggesting pneumonia. Pleural space: The previous left pleural effusion has resolved. There is trace pleural gas medially toward the left apex. The right pleura demonstrates similar collections including of fluid and gas anteriorly, and loculated fluid collection posteriorly. Heart: Unremarkable. No cardiomegaly. Similar small pericardial effusion. Lymph nodes: Unremarkable. No enlarged lymph nodes. Bones/joints: Degenerative changes again involve the spine and shoulders. Soft tissues: Unremarkable. IMPRESSION: 1. No pulmonary embolus identified. 2. Left pleural pigtail catheter placed since 04/05/20, with resolution of previous left pleural effusion, now with trace pleural gas medially toward the apex. 3. Re-expansion of left lung now with patchy and dense ground-glass and airspace opacities inferiorly, particularly in the lower lobe, suggesting pneumonia. 4. Similar right pleural collections, including fluid and gas anteriorly and loculated fluid posteriorly. 5. Similar extensive airspace opacity in the residual postoperative right lung medially and posteroinferiorly. 6. Similar small pericardial effusion. Electronically signed by: Michael Hayes On 04/07/2020 11:17:20 AM
[2020-04-07] MEDS ORDERED: SLF 3 ML SYR IV PRN (12:30)
--- NOTE | 2020-04-07 13:21 | IPNPDOC ---
Date Seen The patient was seen on 04/07/20. Progress Note SUBJECTIVE: Fluid drained from pigtail catheter appears transudative, pathology and cytology pending. No PE seen on CTA chest, d/nupur lovenox BID. WBC increased slightly to 15, H/H slightly lower. Keeping levofloxacin and monitoring labs closely. No s/s of acute bleeding. Speech and swallow evaluation to be done today. Denies chest pain, worsening SOB, fevers, chill, n/v/d. OBJECTIVE: PHYSICAL EXAMINATION: VS: Please see below CONSTITUTIONAL: No acute distress, resting comfortably, AAO x 3 EYES: PERRLA, EOM intact HENT, MOUTH: Normocephalic, atraumatic, moist mucous membranes, nasal cannula in place NECK: SUPPLE, no JVD, no lymphadenopathy, no carotid bruit CV: Regular rate and rhythm, S1S2 normal, no murmurs/rubs/gallops CHEST: Area of insertion of prior chest tube in right upper chest is clean, well healing, no pain on palpation BACK: left posterior back pigtail catheter in place, tender to touch, no erythema or increased swelling RESPIRATORY: Rhonchi bilaterally slightly improved , no exp wheezing. no rales GI: thin abdomen, BS positive in 4 quadrants, soft, nontender, nondistended, no rebound or guarding, no organomegaly : Deferred MUSCULOSKELETAL: Normal ROM. No cyanosis, clubbing, swelling, joint deformity, extremity edema INTEGUMENTARY: Intact, no rashes, no lesions, no erythema NEUROLOGIC: Cranial Nerves II-XII are intact, no focal deficits PSYCHIATRIC: Depressed mood and affect LABORATORY DATA: Please see below MICROBIOLOGY: Blood cultures x 2 sets: NG at 24 hrs Pleural fluid Cx: NG Pleural fluid fungal Cx: pending Sputum Cx: collected 04/07/20, pending IMAGING: CTA chest 04/07/20: 1. No pulmonary embolus identified. 2. Left pleural pigtail catheter placed since 04/05/20, with resolution of previous left pleural effusion, now with trace pleural gas medially toward the apex. 3. Re-expansion of left lung now with patchy and dense ground-glass and airspace opacities inferiorly, particularly in the lower lobe, suggesting pneumonia. 4. Similar right pleural collections, including fluid and gas anteriorly and loculated fluid posteriorly. 5. Similar extensive airspace opacity in the residual postoperative right lung medially and posteroinferiorly. 6. Similar small pericardial effusion. CT chest with contrast 04/05/20: 1. Interval removal of previously visualized right pleural catheter with loculated 9.7 by 6.0 by 7.3 cm air and fluid pleural collection in the inferior right hemithorax, consistent with empyema in the appropriate clinical setting. 2. Extensive residual right-sided airspace disease, disproportionately localized in the medial aspect of the right lung, along with volume loss. Bronchoscopy can be performed for further evaluation, if clinically indicated. 3. Dependent moderate sized left pleural effusion demonstrated. Echocardiogram 02/2020: 1. Normal left ventricular size and wall thickness. Low normal global left ventricular systolic function in limited views. 2. Normal left atrium. Normal right atrium and left ventricle. 3. Normal aortic root. 4. Trace pericardial effusion was noted. No evidence of cardiac tamponade. 5. Mildly calcified aortic valve with normal leaflet excursion. Mildly calcified mitral annulus with normal anterior mitral valve leaflet motion. Normal tricuspid valve. The pulmonic valve and proximal pulmonary artery branches were not well visualized. 6. The inferior vena cava was normal in size. Central venous pressure is most likely normal. 7. Doppler low normal global left ventricular systolic function. Not mentioned above, there are features consistent with grade 2 left ventricular systolic dysfunction. 8. Aortic valve sclerosis with mild aortic regurgitation, but no aortic stenosis. 9. Mitral annulus calcification with mild mitral regurgitation. 10. Mild tricuspid regurgitation with mild pulmonary hypertension. There was a peak velocity of 2.7 msec across the tricuspid valve. 11. Trace pericardial effusion. No evidence of cardiac tamponade. 12. This was compared with most recent echocardiogram of 12/07/2019 and at that time, moderate pericardial effusion was noted. 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 PLAN: Acute hypoxic respiratory failure likely multifactorial 2/2 to bronchiectasis with mucocilliary clearance issue. Also recent dx of pneumonia (prior admission), empyema and bilateral pleural effusions. -S/p pigtail catheter placement 04/05/20, minimal o/p of 45 mL over 24 hrs -Remains on 2 L NC, saturating well. Rhonchi persists but mildly improved -Leukocytosis likely steroid induced -Hx of radiation which can be cause of difficulty clearing secretions and difficulty swallowing per patient, concern for aspiration in the past -CTA chest done today ruled out pulmonary embolus: Left pleural effusion appears improving, cannot r/o PNA underneath. Similar right pleural collections, including fluid and gas anteriorly and loculated fluid posteriorly. (note: the right was diagnosed as empyema on last admission) -Last echo above, preserved EF -F/u sputum cx, blood cultures above -Supplemental O2, monitor I&Os, acapella Q2hrs while awake -C/w xopenex ATC and PRN, humidified O2, mucinex, swallowing evaluation, levofloxacin PO (what patient was on at home), methylprednisolone add by pulmonary. -Dr. Zepeda (pulmonary) and Dr. Harman (thoracic surgery) following Elevated BNP, no prior hx of CHF -BNP >1380, prior on file 1043 in 02/2020 -Does not show s/s of fluid overload -Echo from 02/2020 above -Diurese intermittently PRN, careful with soft blood pressure Pericardial effusion -16 mm in size currently -Echo 02/2020 showed to be mild with no evidence of cardiac tamponade -Echo prior in 11/2019 (according to records) showed to be moderate in size -Denies chest pain, increased SOB, trops normal Hypotension likely due to hypovolemia -Baseline BP 110-120 from prior records. -Gentle IVF hydration at 75 cc/hr Adenocarcinoma of the lung -Was last seen by medical oncology 03/17/20, follows with Dr. Meade -follow-up medical oncology and repeat PET scan imaging Hypothyroidism -TSH noted -C/w Levothyroxine Anemia likely 2/2 iron deficiency - H/H stable - C/w Ferrous sulfate DVT prophylaxis - c/w Lovenox DISPOSITION: Admitted under inpatient status. Pulmonary and thoracic surgery consulted. PT/OT. Plan is discharge back to home when medically improved. VS, I&O, 24H, Fishbone Vital Signs/I&O Vital Signs Date Time Temp Pulse Resp B/P (MAP) Pulse Ox O2 Delivery O2 Flow Rate FiO2 04/07/20 12:00 98.2 103 18 93/52 (66) 96 Room Air 04/07/20 04:45 2.0 04/06/20 05:07 96 I&O- Last 24 Hours up to 6 AM 04/07/20 05:59 Intake Total 1200 ml Output Total 995 ml Balance 205 ml Laboratory Data 24H LABS Laboratory Tests 2 04/07/20 05:10: Immature Granulocyte % (Auto) 0.5, Neutrophils (%) (Auto) 95.0H, Lymphocytes (%) (Auto) 2.5L, Monocytes (%) (Auto) 1.8, Eosinophils (%) (Auto) 0.1, Basophils (%) (Auto) 0.1, Neutrophils # (Auto) 14.3H, Lymphocytes # (Auto) 0.4L, Monocytes # (Auto) 0.3, Eosinophils # (Auto) 0.0, Basophils # (Auto) 0.0, Nucleated Red Blood Cells % (auto) 0.0, Anion Gap 7L, Glomerular Filtration Rate > 60.0, Calcium Level 8.7, Total Bilirubin 0.3, Aspartate Amino Transf (AST/SGOT) 22, Alanine Aminotransferase (ALT/SGPT) 13, Alkaline Phosphatase 122H, Troponin I < 0.02, Total Protein 6.4, Albumin 2.3L, Albumin/Globulin Ratio 0.6L CBC/BMP Laboratory Tests 04/07/20 05:10 Microbiology Microbiology 04/07/20 Gram Stain, Received Pending 04/07/20 Sputum Culture, Received Pending 04/05/20 Acid Fast Stain, Received Pending 04/05/20 Mycobacterial Culture, Received Pending 04/05/20 Fungal Smear, Received Pending 04/05/20 Fungal Culture, Received Pending 04/05/20 Gram Stain - Final, Complete 04/05/20 Anaerobic Culture - Final, Complete 04/05/20 Body Fluid Culture - Final, Complete 04/05/20 Blood Culture - Preliminary, Resulted No Growth after 48 hours. All Specime... 04/05/20 Blood Culture - Preliminary, Resulted No Growth after 48 hours. All Specime... Current Medications Current Medications Medications (Trade) Dose Ordered Sig/Miriam Route PRN Reason Start Time Stop Time Status Last Admin Dose Admin Acetaminophen (Tylenol Tab) 650 mg Q6HP PRN PO T > 101.5 or QUINN 04/05/20 16:00 Acetaminophen/ Hydrocodone Bitart ([place], Anexsia 5/325) 1 tab Q3H PRN PO MILD PAIN (PS 1-4) 04/05/20 16:00 04/05/20 16:39 DC Acetylcysteine (Mucomyst 20% (200mg/ml)) 400 mg RBID INH 04/06/20 08:00 04/07/20 07:14 Bisacodyl (Dulcolax Suppository) 10 mg Q4HP PRN FL CONSTIPATION 04/05/20 16:00 Docusate Sodium (Colace) 100 mg BID PO 04/05/20 21:00 Dornase Brian (Pulmozyme) 2.5 mg RBID INH 04/06/20 08:00 04/06/20 11:26 DC Enoxaparin Sodium (Lovenox) 30 mg DAILY SC 04/08/20 09:00 Enoxaparin Sodium (Lovenox) 30 mg QHS SC 04/05/20 21:00 04/05/20 16:37 DC Enoxaparin Sodium (Lovenox) 40 mg DAILY@2100 SC 04/05/20 21:00 04/05/20 12:10 DC Enoxaparin Sodium (Lovenox) 50 mg Q12H SC 04/05/20 18:00 04/07/20 11:18 DC 04/07/20 06:05 Ferrous Sulfate (Ferrous Sulfate) 325 mg BID PO 04/05/20 21:00 04/07/20 09:54 Guaifenesin (Mucinex Tab Er) 1,200 mg BID PO 04/05/20 09:00 04/07/20 11:05 DC 04/07/20 09:55 Home Med (Med Rec Complete!) ASDIRECTED XX 04/05/20 10:00 04/05/20 10:03 DC Hydromorphone HCl (Dilaudid) 1 mg Q6HP PRN PO MODERATE/SEVERE PAIN (PS 5-10) 04/05/20 16:45 04/07/20 06:12 Ketorolac Tromethamine (ToRADol) 30 mg Q6HP IV 04/05/20 16:00 04/10/20 15:59 04/07/20 09:56 Levalbuterol HCl (Xopenex Neb) 1.25 mg Q2HP PRN NEB SHORTNESS OF BREATH 04/05/20 13:00 04/06/20 10:03 Levalbuterol HCl (Xopenex Neb) 1.25 mg RQ4H NEB 04/05/20 16:00 04/07/20 11:05 Levofloxacin (Levaquin) 750 mg DAILY@0600 PO 04/06/20 06:00 04/07/20 06:05 Levothyroxine Sodium (Synthroid) 75 mcg DAILY@0600 PO 04/06/20 06:00 04/07/20 06:05 Magnesium Hydroxide (Milk Of Magnesia) 30 ml DAILY PO 04/06/20 09:00 Methylprednisolone (SOLU medrol) 40 mg Q8H IV 04/06/20 11:00 04/07/20 11:44 Ondansetron HCl (ZOFRAN INJection) 4 mg Q4HP PRN IV NAUSEA 04/05/20 16:00 Oxycodone/ Acetaminophen (Percocet 5mg/ 325mg Tablet) 1 tab Q4H PRN PO MODERATE PAIN (PS 5-7) 04/05/20 16:00 04/05/20 16:39 DC Oxycodone/ Acetaminophen (Percocet 5mg/ 325mg Tablet) 2 tab Q4H PRN PO SEVERE PAIN (PS 8-10) 04/05/20 16:00 04/05/20 16:39 DC Pantoprazole Sodium (Protonix) 40 mg DAILY PO 04/06/20 09:00 04/07/20 09:54 Sodium Chloride (Saline Lock Flush) 2 ml ASDIRECTED PRN IV SEE LABEL COMMENTS 04/07/20 12:30 Sodium Chloride (Saline Lock Flush) 2 ml SLF IV 04/07/20 14:00 Sodium Chloride (Sodium Chloride 3% Neb Tricia) 3 ml RQ8H INH 04/06/20 08:00 04/07/20 07:14 Allergies Coded Allergies: No Known Allergies (Unverified , 08/07/18) Claire Lofton MD Apr 07, 2020 13:21
--- NOTE | 2020-04-07 13:57 | ECGEPIP ---
[facility] Test Date: 2020-04-07 Pat Name: KALPESH FERRARA Department: Room: [place] [address] Gender: Female [employer] Att[employer]: : 1960 Requested By: KLEVER Veloz Order Number: [id number] Reading MD: Zuri Murguia Measurements Intervals [facility] Rate: 111 P: 47 VT: 137 QRS: 70 QRSD: 86 T: 91 QT: 353 QTc: 480 Interpretive Statements SINUS TACHYCARDIA ST & T-WAVE [id number] PRONOUNCED (DIFFUSE) NEW QTC P PROLONG RATE FASTER COMPARED WITH 04/05/20 Electronically Signed on 04-07-2020 13:57:20 EDT by Zuri Murguia
[2020-04-07] MEDS: SLF 3 ML SYR IV SCH ×2 (14:00→20:33)
[2020-04-07] MEDS: NS 1,000 ML IV SCH (15:03)
[2020-04-08] VITALS: BP 122/62
[2020-04-08] MEDS: LEVALBUTEROL 1.25 MG/0.5 ML CONCENTRATE NEB NEB SCH ×6 (03:14→23:48)
[2020-04-08] MEDS: methylPREDNISolone 40MG 1ML VIAL IV SCH ×3 (03:36→18:52)
[2020-04-08] MEDS: NS 1,000 ML IV SCH (03:36)
[2020-04-08 04:00] VITALS: BP 97/59
[2020-04-08 05:06] LABS: BASO % 0.1 % (0.0-1.0); EOS % 0.1 % (0.0-3.0); HEMATOCRIT 25.8 % (36.0-47.0); HEMOGLOBIN 7.8 g/dl (12.0-15.5); LYMPH # 0.3 10^3/uL (1.5-5.0); LYMPH % 2.8 % (24.0-44.0); MEAN CORPUSCULAR HEMOGLOBIN 26.1 pg (27.0-33.0); MEAN CORPUSCULAR HGB CONC 30.2 g/dl (32.0-36.5); MEAN CORPUSCULAR VOLUME 86.3 fl (80.0-96.0); MONO # 0.3 10^3/uL (0.0-0.8); MONO % 3.5 % (0.0-5.0); NEUTROPHILS # 8.5 10^3/uL (1.5-8.5); NEUTROPHILS % 92.7 % (36.0-66.0); PLATELET COUNT, AUTOMATED 511 10^3/uL (150-450); RED BLOOD COUNT 2.99 10^6/uL (4.00-5.40); WHITE BLOOD COUNT 9.2 10^3/uL (4.0-10.0)
[2020-04-08 05:30] LABS: ALBUMIN 2.1 GM/DL (3.2-5.2); ALT/SGPT 12 U/L (12-78); BILIRUBIN,TOTAL 0.2 MG/DL (0.2-1.0); BLOOD UREA NITROGEN 23 MG/DL (7-18); CALCIUM LEVEL 8.1 MG/DL (8.5-10.1); CARBON DIOXIDE LEVEL 26 MEQ/L (21-32); CHLORIDE LEVEL 109 MEQ/L (98-107); CREATININE FOR GFR 0.58 MG/DL (0.55-1.30); GLOMERULAR FILTRATION RATE > 60.0 (>51); GLUCOSE, FASTING 145 MG/DL (70-100); POTASSIUM SERUM 3.9 MEQ/L (3.5-5.1); SODIUM LEVEL 142 MEQ/L (136-145); TOTAL PROTEIN 5.6 GM/DL (6.4-8.2)
[2020-04-08] MEDS: LevoFLOXacin 750 MG TABLET PO SCH (05:45)
[2020-04-08] MEDS: LEVOTHYROXINE 75MCG TABLET (0.075MG) PO SCH (05:45)
[2020-04-08] MEDS: SLF 3 ML SYR IV SCH ×3 (05:46→20:26)
[2020-04-08] MEDS: HYDROmorphone 2 MG TAB PO PRN ×2 (05:46→15:53)
[2020-04-08] MEDS: ACETYLCYSTEINE 20% 4 ML VIAL (200MG/ML) INH SCH ×2 (07:08→19:03)
[2020-04-08] MEDS: SODIUM CHLORIDE HYPERTONIC 3% 15ML NEB SOL INH SCH ×3 (07:08→23:48)
--- NOTE | 2020-04-08 07:43 | IPN ---
DATE: 04/05/2020 Ms. Elder was discharged yesterday after a septic course from pneumonia and an empyema which was drained. The empyema occurred in a space in the chest secondary to prior destruction of the lung by radiation. While it was certainly expected that the space would fill back up after a number of days of drainage and on antibiotics, the catheter was removed and the fluid re-accumulated on antibiotics. It was our hope that it would remain sterile. She woke up this morning more short of breath and she therefore sought medical attention. She denies fever, chills, or sweats. She has had a cough but it is has been nonproductive. She does feel rattles in her chest. There is no difficulty swallowing and she has not choked with swallowing. There is no chest pain or chest discomfort. On physical examination today, her vital signs show a temperature of 97.9 with a heart rate of 100 in a sinus rhythm, respiratory rate of 18 without the use of accessory muscles who is 97% saturated on five liters nasal cannula and whose blood pressure is 130/70. In the emergency room, it is reported that her saturations were 63% on room air. Her lungs show coarse rhonchi on the right side with fine rhonchi but not rales on the left side. Most of the rhonchi clear with coughing on the left side. Percussion note is full to the diaphragm. Cardiac exam is without murmurs, clicks, gallops, or rubs, I cannot feel her point of maximum impulse (PMI), S1 and S2 are normal. Abdomen is soft, nontender, bowel sounds are positive, there is no hepatomegaly, no costovertebral angle (CVA) tenderness. Extremities show no pretibial edema, no calf tenderness, no differential swelling of the upper extremities. Skin is warm, dry, and perfused without cyanosis or mottling including that of the nail beds and knees. Neck is supple, there is no jugular venous distension, no subcutaneous emphysema, trachea is midline. Mouth shows her mucous membranes to be pink and moist, lips and commissures without lesions or thrush. Eyes show her pupils to be equal and reactive, extraocular motors intact, sclerae nonicteric. Neurologic shows II-XII intact along with gross motor and gross sensation intact, gait is not tested. Psychiatric shows her to be awake and alert, oriented times three, with appropriate mood and affect and conversational. Her white count today is 8.3, up from 6.7 yesterday and 5.8 the day before. Her hemoglobin and hematocrit are 10.8 and 35.8, respectively, with a platelet count of 599. Differential shows 89% neutrophils, 5% lymphocytes, and 4% monocytes. There are no immature forms and no toxic granulations. Her chemistry today showed normal electrolytes with a BUN and creatinine of 10 and 0.43, glucose of 108, and calcium 8.6. Her albumin is 2.3. AST and ALT are normal. Her PT/INR are 15.9 and 1.24, respectively, with a PTT of 24.2. No blood gases were done today. Her chest x-ray done in the emergency room portably shows some blunting of the costophrenic angle more than it was yesterday on the left side. I do not see the air fluid level on the right side. Chest CT shows a moderate to large pleural effusion inferiorly on the left. She still has an air fluid level in the previously drained right-sided pocket from her prior empyema. The right lung shows no other changes showing almost complete destruction. There is no pericardial effusion. IMPRESSION: 1. Prior right-sided pneumonia. 2. Radiation pneumonitis with destruction of underlying pulmonary parenchyma on the right and bronchiectasis on the right. 3. Chronic obstructive pulmonary disease (COPD). 4. Empyema hopefully resolved. 5. History of pericarditis with pericardial effusion nonmalignant and increasing left pleural effusion. PLAN AND DISCUSSION: She is not febrile and does not complain of chest pain in the right side, I do not think this is a return of her empyema. Her white count is up, that could be secondary to stress-induced demargination. On the other hand, while her white count is normal, it may be disguised by her underlying immunosuppression. Her main complaint right now is shortness of breath. I will drain her pleural effusion on the left hopefully with a pigtail catheter to offer her some relief from her shortness of breath. Regretfully, the CT done downstairs was with contrast and was not with angiographic protocol, however the pulmonary arteries are very well opacified and I do not see a pulmonary embolism. She has major compression of the lower lobe and if we can get that opened up that may afford her some relief from her shortness of breath. There is one small suspicious area which might represent a pulmonary embolism at or near the tip of the left upper lobe pulmonary artery. It is seen on the coronals however it looks more to be a lymph node rather than a blood clot. Nothing was mentioned in the official x-ray report. I will ask for a re-read. MTDD
[2020-04-08 07:45] VITALS: BP 133/65
--- NOTE | 2020-04-08 07:47 | IPN ---
DATE: 04/06/2020 SUBJECTIVE: Ms. Shah was drained of over 1000 mL of fluid yesterday from her left chest. Today, however, she is still very short of breath and rhonchorous. She is having trouble coughing up her mucus. PHYSICAL EXAMINATION: Her vital signs show a maximum temperature (T-max) of 98.8 with a heart rate that ranges between 97-109 in sinus rhythm, respiratory rate of 18-20 with the use of accessory muscles in her neck. Although the respiratory rate is charted as above, when I was visiting her her respiratory rate is more around 26-28. She is 98% saturated on 2 liters nasal cannula and her blood pressure is ranging between 107/65 to 100/70. Her intake and output the past 24 hours have been recorded as nothing in and 1010 out, all that in chest tube output. There is no urine output recorded and no p.o. intake recorded. Her weight today is 43.6 kg compared to 45.5 kg. On physical examination she has coarse rhonchi which do not clear with coughing throughout the entire left lung. She also has coarse rhonchi and rales on the right side. Percussion notes are full through the diaphragm on the left and somewhat dull at the base on the right. Cardiac exam shows tachycardia without murmurs, clicks, gallops, or rubs. I cannot feel her PMI. S1, S2 are normal. Abdomen is soft, nontender. Bowel sounds are positive. There is no hepatomegaly. No CVA tenderness. Extremities show no pretibial edema, no calf tenderness, no differential swelling of the upper extremities. Skin is warm and dry and perfused without cyanosis or mottling including that of nailbeds and knees. Neck is supple. There is no jugular venous distention, no subcutaneous emphysema. Trachea is midline. Mouth shows her mucous membranes to be pink and moist. Lips, gums, tongue show no thrush. Eyes show her pupils to be equal and reactive. Extraocular movements are intact. Sclerae nonicteric. Neuro shows CN II-XII intact with normal gross motor, gross sensation intact. Gait is not tested. Psychiatric shows her to be awake and alert and oriented times three with appropriate mood and affect and conversational. Her white count today is 12.5 with a hemoglobin and hematocrit of 9.4 and 31.2 respectively with a platelet count of 687. Differential shows 93% neutrophils, 3% lymphocytes and 3% monocytes. There were no immature forms or toxic granulations. Her chemistries today showed normal electrolytes with a BUN and creatinine of 17 and 0.7 with a glucose of 177 and a calcium of 8.5. AST and ALT are normal with an albumin of 2.3. She is on Levaquin as an antibiotic. She is also on Solu- Medrol. Her chest x-ray today certainly shows clearing of the left hemithorax. There looks to be some type of atelectasis and/or consolidation in the left costophrenic angle. Pigtail catheter is in good place. There is a return of the air fluid level in the cavity which seemed to have been resolved yesterday on her portable chest x-ray. It was probably secondary to technique. There is volume of course on the right side with a mediastinal shift to the right. Lateral chest x-ray clearly shows the air fluid level in the right hemithorax. Her pleural fluid comes back with a pH of greater than 7.8 with an LDH of 121 and a corresponding serum LDH of 199 which makes this barely exudative. Glucose 111 and a total protein of 2.8 with a corresponding total protein of 6.6 which points to transudation. She has 183 white cells of which 92% are mononuclear lymphocytes and 7% are neutrophils. This looks to be barely exudative, most likely transudative lymphocytic monocytic pleural effusion which looks to be chronic in nature. The microbiology gram stain did not show any organisms. Pathology is pending. IMPRESSION: 1. Left-sided pleural effusion most likely transudative. 2. Probable pulmonary embolism left pulmonary artery. 3. Empyema left chest seemingly resolved. 4. History of pericarditis with pericardial effusion, nonmalignant. 5. Radiation pneumonitis and destruction of underlying pulmonary parenchyma on the right with severe bronchiectasis on the right. 6. Mucus plugging. PLAN DISCUSSION: As I noted in yesterdays note, I do see a lucency in the left pulmonary artery near the takeoff of the left upper lobe pulmonary artery. This was not called by the radiologist but I think considering her extensive history of lung cancer and her thrombocytosis that we should treat her and fully anticoagulate her. I have asked the medical service to do that and they have done so with Lovenox. She does have severe mucus plugging and rhonchi throughout. I will put her on mucolytics to include Mucomyst and Dornase along with hypertonic saline nebs to encourage more forceful coughing. A pulmonary therapy vest would also not be unreasonable. However she does have pain at the catheter insertion site and she wishes to forego the therapy vest at this point. MTDD
--- NOTE | 2020-04-08 07:50 | IPN ---
DATE: 04/07/2020 SUBJECTIVE: Genesis states she has improved symptoms today, has decreased cough, less chest congestion, less shortness of breath. She brought in the foreign body that she coughed up previously, it does appear to be a pill. She states she is having trouble with pills. She states she felt a Mucinex burst inside her and burn, therefore will discontinue the Mucinex. She does not have Teeth. She should probably be evaluated with a speech and swallow evaluation, I believe this has already been ordered by the primary team. She does have multiple different snacks around her with very poor nutritional value. Overall, no fevers or chills overnight. She has had some increase in chest tube output. Chest CT was repeated today as outlined below. PHYSICAL EXAMINATION: VITAL SIGNS: Pulse is 116, blood pressure is 94/62, oxygen saturation is 96% on room with a respiratory rate of 16, temperature is 97.0. GENERAL: Awake, alert and oriented. Affect and mood are appropriate. Nutrition and hygiene are fair. HEENT: Sclera clear, anicteric. Pupils are equal and reactive to light. Mucous membranes are moist. Tongue is midline. She is edentulous. Mallampati II. NECK: Supple. No tracheal deviation. No mass. LYMPH NODES: No cervical, supraclavicular, or axillary adenopathy. CARDIAC: Distant S1 and S2 without audible murmur, rub or gallop. PMI is slightly displaced to the left. There are decreased breath sounds on the right as compared to the left. There is dullness to percussion on the right approximately two-thirds of the lung. The left has improved but continued rhonchi. No expiratory wheeze. No accessory muscle use. EXTREMITIES: No cyanosis, clubbing or edema. MUSCULOSKELETAL: There is muscle wasting without joint effusion or obvious fracture. NEUROLOGIC: No unilateral weakness. Speech is clear, slightly pressured, slightly anxious but consolable. LABORATORY DATA: Laboratory evaluation shows a white blood cell count of 15.1 which is slightly increased, hemoglobin is slightly decreased at 8.1, hematocrit of 27.2 and a platelet count that is down to 594,000. Chest x-ray shows again air fluid level on the right without much difference from yesterday. Continued left lower lobe infiltrate. CT scan repeated for CT angiogram to confirm whether or not there is actual pulmonary embolism. It appears that the lesion that is in question in the left upper lobe is likely external and due to tortuosity of the blood vessel rather than an intravascular abnormality. Therefore, will recommend to discontinued Lovenox. There continues to be left lower lobe infiltrate. Chest tube is in place on the left without significant pleural effusion. On the right, there is a loculated pleural effusion with an air fluid level that was recently drained earlier last week due to empyema. Patient has a trapped lung on this side and therefore we do not expect reexpansion of that lung. IMPRESSION: 1. Bronchiectasis with poor mucociliary clearance and probable chronic aspiration. Recommend speech and swallow evaluation and continued mucociliary clearance techniques with Acapella nebulized therapy. The patient is now on Mucomyst. This will likely be able to be discontinued in the next few days as long as airways continue to remain clear. 2. Leukocytosis, worsened, likely secondary to the addition of steroids. Patient feels better with the use of steroids, attributes all her improvement to steroids. Therefore, will continue steroids for the next three days. If she does not have significant clinical improvement over the next few days, it may be worth bronchoscopy to see if there is any recurrence of malignancy. 3. DVT prophylaxis, should return to low dose DVT prophylaxis rather than full- dose anticoagulation at this point in time. 4. Pain, pain appears to be well-controlled at this point. 5. GI prophylaxis with Protonix. High risk for gastritis and ulcer formation due to the use of Ketorolac and steroids. MTDD
[2020-04-08] MEDS: FERROUS SULFATE 325MG TAB PO SCH ×2 (08:07→20:26)
[2020-04-08] MEDS: PANTOPRAZOLE 40MG TAB (PROTONIX) PO SCH (08:07)
[2020-04-08] MEDS: ENOXAPARIN 30MG/0.3ML SYRINGE (J1650 PER 10MG) SC SCH ×2 (08:08→10:03)
[2020-04-08] MEDS: DOCUSATE SODIUM 100 MG CAP PO SCH ×2 (08:08→20:26)
[2020-04-08] MEDS: MOM 30ML SUSPENSION UDC PO SCH (08:08)
--- NOTE | 2020-04-08 08:57 | REPVR ---
PROCEDURE INFORMATION: Exam: XR Chest, 2 Views Exam date and time: 04/08/2020 7:50 AM Age: 59 years old Clinical indication: Condition or disease; Other: Pleural effusion; Prior surgery; Surgery date: 3-7 days post-operative TECHNIQUE: Imaging protocol: XR of the chest Views: 2 views. COMPARISON: CR Chest, 2 view PA, Lat 04/07/2020 8:07 AM FINDINGS: Lungs: Areas of right upper lobe and right mid lung consolidation. Consolidation left lower lobe. Significant volume loss right lung and suspected prominent elevation of the right hemidiaphragm. Pleural space: Left pleural drain remains in the lower chest. Heart/Mediastinum: Unremarkable. No cardiomegaly. The right heart border is not defined. Bones/joints: Unremarkable. Soft tissues: Large fluid level in the right chest with suspected large right pleural effusion which could be partially loculated superiorly. Gastrointestinal tract: Gas distention of bowel upper abdomen. IMPRESSION: 1. Persistent and similar consolidation of left lower lung with left pleural drain. 2. Significant volume loss of the right lung with consolidation and suspected large pleural effusion possibly partially loculated superiorly. Only small area of aeration of the right upper lobe. Electronically signed by: Christy Rosales On 04/08/2020 08:57:25 AM
--- NOTE | 2020-04-08 08:58 | RO ---
DATE OF OPERATION: 04/05/2020 PREPROCEDURE DIAGNOSIS: Left pleural effusion. POSTPROCEDURE DIAGNOSIS: Left pleural effusion. SURGEON: Seng Harman MD PROCEDURE PERFORMED: Insertion of pigtail catheter left lower hemithorax. PROCEDURE: The patient was prepped and draped in usual sterile fashion. Using the xiphoid as a landmark the appropriate rib level was infiltrated with 1% Lidocaine down to the pleura. Exploring needle showed prakash fluid and incision was made and pigtail catheter advanced. Fluid came freely out of the pigtail catheter. Fluid was sent for requisite cytologies, hematologies, chemistries and bacteriologies. The pigtail catheter was sutured in with 2-0 silk. Dressing was applied. This was connected to Pleur-evac. The patient tolerated the procedure well. Chest x-ray is pending. [facility]
[2020-04-08] MEDS ORDERED: KETOROLAC 30 MG/ML 1ML VIAL IV PRN (09:30)
[2020-04-08 12:00] VITALS: BP 121/61
--- NOTE | 2020-04-08 13:05 | IPNPDOC ---
Text Note Date of Service The patient was seen on 04/08/20. NOTE SUBJECTIVE: -No acute events overnight -Denies chest pain, worsening SOB, fevers, chills -No N/V/D -On room air OBJECTIVE: PHYSICAL EXAMINATION: VS: Please see below, soft BPs, afebrile, on room air CONSTITUTIONAL: No acute distress, resting comfortably, AAO x 3 EYES: PERRLA, EOMI HENT: NCAT, MMM CV: Regular rate and rhythm, S1S2 normal, no murmurs/rubs/gallops CHEST: Bilateral upper airway transmitted sounds, no destinee crackles, no wheezing, breathing comfortably on room air. GI: Scaphoid, normoactive sounds in all 4 quadrants, soft, nontender, nondistended, no rebound or guarding, no hepatosplenomegaly or palpable masses EXT: No LE edema, WWP, 2+ DP pulses INTEGUMENTARY: Intact, no rashes, no lesions, no erythema. Pigtails in L posterior chest without surrounding erythema, rashes or lesions NEUROLOGIC: Cranial Nerves II-XII are intact, no focal deficits, 5/5 strength in all 4 extremities PSYCHIATRIC: AOx3, depressed mood LABORATORY DATA: Reviewed. Please see below WBC 9.2 hgb 7.8 Platelets 511 na 142 K 3.9 Cr 0.58 MICROBIOLOGY: Blood cultures x 2 sets: NGTD Pleural fluid Cx: NGTD Pleural fluid fungal Cx: pending Sputum Cx: collected 04/07/20, pending IMAGING: CTA chest 04/07/20: 1. No pulmonary embolus identified. 2. Left pleural pigtail catheter placed since 04/05/20, with resolution of previous left pleural effusion, now with trace pleural gas medially toward the apex. 3. Re-expansion of left lung now with patchy and dense ground-glass and airspace opacities inferiorly, particularly in the lower lobe, suggesting pneumonia. 4. Similar right pleural collections, including fluid and gas anteriorly and loculated fluid posteriorly. 5. Similar extensive airspace opacity in the residual postoperative right lung medially and posteroinferiorly. 6. Similar small pericardial effusion. CT chest with contrast 04/05/20: 1. Interval removal of previously visualized right pleural catheter with loculated 9.7 by 6.0 by 7.3 cm air and fluid pleural collection in the inferior right hemithorax, consistent with empyema in the appropriate clinical setting. 2. Extensive residual right-sided airspace disease, disproportionately localized in the medial aspect of the right lung, along with volume loss. Bronchoscopy can be performed for further evaluation, if clinically indicated. 3. Dependent moderate sized left pleural effusion demonstrated. Echocardiogram 02/2020: 1. Normal left ventricular size and wall thickness. Low normal global left ventricular systolic function in limited views. 2. Normal left atrium. Normal right atrium and left ventricle. 3. Normal aortic root. 4. Trace pericardial effusion was noted. No evidence of cardiac tamponade. 5. Mildly calcified aortic valve with normal leaflet excursion. Mildly calcified mitral annulus with normal anterior mitral valve leaflet motion. Normal tricuspid valve. The pulmonic valve and proximal pulmonary artery branches were not well visualized. 6. The inferior vena cava was normal in size. Central venous pressure is most likely normal. 7. Doppler low normal global left ventricular systolic function. Not mentioned above, there are features consistent with grade 2 left ventricular systolic dysfunction. 8. Aortic valve sclerosis with mild aortic regurgitation, but no aortic stenosis. 9. Mitral annulus calcification with mild mitral regurgitation. 10. Mild tricuspid regurgitation with mild pulmonary hypertension. There was a peak velocity of 2.7 msec across the tricuspid valve. 11. Trace pericardial effusion. No evidence of cardiac tamponade. 12. This was compared with most recent echocardiogram of 12/07/2019 and at that time, moderate pericardial effusion was noted. 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 PLAN: Acute hypoxic respiratory failure likely multifactorial 2/2 to bronchiectasis with mucocilliary clearance difficulty. Also recent dx of pneumonia (prior admission), empyema and bilateral pleural effusions. -S/p pigtail catheter placement 04/05/20 -Hx of radiation which can be cause of difficulty clearing secretions and difficulty swallowing per patient, concern for aspiration in the past -CTA negative for pulmonary embolus: Left pleural effusion appears improving, could not r/o PNA underneath. Similar right pleural collections, including fluid and gas anteriorly and loculated fluid posteriorly. (note: the right was diagnosed as empyema on last admission). continuing on levofloxacin. -Last echo above, preserved EF -F/u sputum cx, blood cultures above -Supplemental O2, monitor I&Os, acapella Q2hrs while awake -C/w xopenex ATC and PRN, humidified O2, mucinex, swallowing evaluation recs -Pulm consulted (Dr. Zepeda) who added methylprednisolone -Dr. Harman (thoracic surgery) consulted, who placed a pigtail and drained the L large effusion Elevated BNP, no prior hx of CHF -BNP >1380, prior on file 1043 in 02/2020 -Euvolemic on exam, will monitor -Echo from 02/2020 above -Diurese intermittently PRN, careful with soft blood pressure Pericardial effusion -16 mm in size currently -Echo in 11/2019 and 02/2020 showed to be mild with no evidence of cardiac tamponade -Denies chest pain, increased SOB, trops normal Hypotension likely due to hypovolemia -Baseline BP 110-120 from prior records. -continue gentle IVF hydration at 75 cc/hr Adenocarcinoma of the lung -Was last seen by medical oncology 03/17/20, follows with Dr. Meade -follow-up in the outpatient setting with medical oncology and repeat PET scan imaging as planned Hypothyroidism -C/w Levothyroxine Anemia likely 2/2 iron deficiency - C/w Ferrous sulfate DVT prophylaxis - c/w Lovenox DISPOSITION: Admitted under inpatient status. Pulmonary and thoracic surgery consulted. PT/OT. Plan is discharge back to home, tentatively planning for tomorrow. VS,Fishbone, I+O VS, Fishbone, I+O Laboratory Tests 04/08/20 04:36 Vital Signs Date Time Temp Pulse Resp B/P (MAP) Pulse Ox O2 Delivery O2 Flow Rate FiO2 04/08/20 06:16 16 04/08/20 04:00 96.2 98 97/59 (72) 95 Room Air 04/07/20 04:45 2.0 04/06/20 05:07 96 I&O- Last 24 Hours up to 6 AM 04/08/20 06:00 Intake Total 240 ml Output Total 710 ml Balance -470 ml EDSON WAGNER MD Apr 08, 2020 07:43
--- NOTE | 2020-04-08 14:48 | IPN ---
DATE: 04/07/2020 SUBJECTIVE: Mrs. Elder is feeling a bit better today. She can certainly breathe better. VITAL SIGNS: T-max 98.2 with heart rate that ranges between 95 and 116 and in sinus rhythm, respiratory rate 16 to 18 without the use of accessory muscles, who is 95 to 97% saturating on 2 liters nasal cannula. Her blood pressure ranges between 125/67 to 93/52. INTAKE AND OUTPUT: For the past 24 hours recorded as 1200 in and 745 out for a positivity of 455 cc. She has only put 45 cc in the chest tube catheter today. She weights 42.6 kilos compared to 43.6 kilos yesterday. PHYSICAL EXAMINATION: Her left lung is a lot less rhonchorus today than it was yesterday, however, there is still quite a lot of rhonchi. I do not hear actual wheezing. Her right lung shows bronchophony and is dull throughout. Her percussion note on the left is full to the diaphragm. Cardiac: Without murmurs, clicks, gallops or rubs. I cannot feel her PMI. S1 and S2 are normal. Abdomen: Soft, nontender, bowel sounds positive. No hepatomegaly. No CVA tenderness. Extremities: Show no pretibial edema, no calf tenderness. No differential swelling of the upper extremities. Skin: Warm, dry and perfused without cyanosis or mottling including that of nailbeds and knees. HEENT: Supple. There is no jugular venous distention, no subcutaneous emphysema. Trachea is midline. Mouth shows her mucous membranes to be pink and moist. Lips and commissures show no thrush. Pupils are equal and reactive. Extraocular motor is intact. Sclerae nonicteric. Neuro: CN II-XII intact with gross motor, gross sensation intact. Gait is not tested. Psychiatric: Awake, alert and oriented x3 with appropriate mood and affect and conversational. LABORATORY DATA: White count today, however, up to 15.1 from 8.3 on admission. Hemoglobin and hematocrit 8.1 and 27.2 respectively, also down from 9.4 and 31.2. Platelet count 594,000. Differential shows 95% neutrophils, 2% lymphocytes, and 1% monocytes. Her electrolytes today are essentially normal with BUN/creatinine 23 and 0.73. Glucose 202 with calcium 8.7 and corresponding albumin 2.3. AST and ALT normal. Discussed her pleural fluid in yesterdays note, being essentially lymphocytic mononuclear and on the borderline of being transudative and exudative. I would tend to favor transudative. MICROBIOLOGY: There is no microbiology on the pleural fluid, other than no organisms are seen. IMAGING STUDIES: Her chest x-ray shows increased filling of the right airspace. The left shows an infiltrate in the costophrenic angle with lung expanded to the chest wall. CAT scan ordered yesterday shows what is probably post expansion pulmonary edema in the left lower lobe from being severely compressed by the effusion. I have reviewed CAT scans with Dr. Quijano of radiology and it does not look as if she has a pulmonary embolism. The lucency is clearly outside the vessel, the takeoff of the upper and lower left pulmonary arteries. IMPRESSION: 1. Left-sided pleural effusion most likely transudative. 2. Pulmonary embolism ruled out. 3. Empyema of right chest resolved. 4. History of pericarditis with pericardial effusion non-malignant. 5. Radiation pneumonitis with associated destruction of the underlying pulmonary parenchyma on the right. 6. Severe bronchiectasis on the right. 7. Mucous plugging. 8. Leukocytosis. PLAN/DISCUSSION: She is currently on Levaquin and an antibiotic. She is also on Solu-Medrol for bronchospasm. I put her on MucoMyst to break up more of her secretions and offered her mucous plugging along with hypotonic normal saline nebs. As she does not have a pleural embolism, we will wean her Lovenox back to prophylactic dose. If the chest tube catheter continues to drain as little as it has today, I will remove tomorrow. RADHA
--- NOTE | 2020-04-08 14:49 | IPN ---
DATE: 04/08/2020 Ms. Elder is feeling much better today, and she is breathing better, She has put out minimally from the chest tube catheter. She is still coughing but still not bringing up much sputum. Her vital signs show a maximum temperature of 97.3 with a heart rate that ranges between 97-102 in a sinus rhythm, respiratory rate of 16-20 without the use of accessory muscles, who is 99% saturated on 2 liters nasal cannula with blood pressure ranging between 133/65-97/59. Her intake and output over the past 24 hours has been recorded as only 240 in and 960 out for a negative of 720 mL. She has put out 950 mL in urine and 10 mL from the chest catheter. Her weight today is 44.9 kg, compared to 42.6 kg yesterday. PHYSICAL EXAMINATION: On the left side her lungs still sound rhonchorous throughout, all of which does not clear with coughing but does diminish with coughing; however, she does sound less rhonchorous than she did the day before and yesterday. Right lung shows bronchophony. Percussion note is dull on the right side and full to the diaphragm on the left. Cardiac exam is without murmurs, clicks, gallops, or rubs. I cannot feel her point of maximal impulse (PMI). S1 and S2 are normal. Abdomen is soft and nontender. Bowel sounds are positive. No hepatomegaly. No costovertebral angle (CVA) tenderness. Extremities show no pretibial edema. No calf tenderness. No differential swelling of the upper extremities. Skin is warm, dry, and perfused without cyanosis or mottling, including that of the nailbeds and knees. Neck is supple. There is no jugular venous distention. No subcutaneous emphysema. Trachea is midline. Mouth shows her mucous membranes to be pink and moist. Lips and commissures without lesion or thrush. Eyes show pupils equal and reactive. Extraocular motions are intact. Sclerae are anicteric. Neurologic shows II-XII intact. Normal gross motor, gross sensation intact. Gait is not tested. Psychiatric shows her to awake, alert, and oriented times three with appropriate mood and affect and conversational. Her white count today is back down to 9.2 from 15.1 yesterday. Hemoglobin and hematocrit, however, are also down to 7.8 and 25.8, which has continued to decrease over the last 2 days from 9.4 and 31.2 and 10.8 and 35.8. Her platelet count is 511 and stable, and differential shows 92% neutrophils, 2% lymphocytes, and 3% monocytes. There are no immature forms or toxic granulations. Her electrolytes are essentially normal with a BUN and creatinine of 23 and 0.58. Glucose 145 and a calcium of 8.1 with corresponding albumin of 2.1. Her chest x-ray shows the left lung fully expanded to the chest wall. Still with the infiltrative atelectative process at the left costophrenic angle. The airspace on the right side continues to fill. She still has the air-fluid level, of course. There is volume loss on the right with a right shift of the mediastinum. IMPRESSION: 1. Left-sided pleural effusion, most likely transudative. 2. Empyema, right chest, seemingly resolved. 3. History of pericardial effusion, nonmalignant. 4. Radiation pneumonitis and destruction of underlying parenchyma. 5. Severe bronchiectasis. 6. Mucous plugging. 7. Stage IIIB lung cancer status post radiation and systemic chemotherapy. PLAN AND DISCUSSION: I will remove her chest catheter today. Will continue her on the Mucomyst. I would think that she could be discharged tomorrow. I will see her back in 10 days in the office. Dr. Zepeda will also follow her up with the eye to doing a bronchoscopy in the near future once she gets over the infectious process. She should be sent home on antibiotics, which at this point consists of Levaquin. RADHA
--- NOTE | 2020-04-08 15:12 | IPN ---
PULMONARY PROGRESS NOTE DATE: 04/08/2020 SUBJECTIVE: Genesis was slightly agitated this morning as she thought she would be completely off blood thinners. I explained that she is now on DVT prophylaxis doses for preventative not on full dose anticoagulation. She does have some anemia this morning on blood work. She denies blood in her stool. She is not getting out of bed too frequently because of pain. She continues to have a cough with chest congestion, but it is less productive today. No other new symptoms. PHYSICAL EXAMINATION: Temperature 96.3, pulse 102, respiratory rate 20, blood pressure 133/65 with a mean arterial pressure of 87, oxygen saturation is 99% on 2 liters. I&Os 240 in/960 out, net negative 720. General: Awake, alert and oriented, slightly agitated with minimally rapid speech without tangentiality. HEENT: Sclerae clear. Mucous membranes moist. Tongue is midline. Neck: Supple, no tracheal deviation or mass. Cardiac: Distant S1 and S2 without audible murmurs, rubs or gallops. No elevated JVP. No peripheral edema. Pulmonary: Diffuse rhonchi mostly auscultated through the left lung field due to dullness in the right base. No expiratory wheeze. No accessory muscle use. Extremities: No cyanosis, clubbing or edema. Skin: No rashes, jaundice, bruising. Chest wall: Chest tube site without surrounding erythema or exudate. LABORATORY DATA: White blood cell count 9.2, hemoglobin 7.8, hematocrit 25.8 with a platelet count of 511. Sodium 142, potassium 3.9, chloride 109, bicarb 26, BUN 23, creatinine 0.58, fasting glucose of 145, calcium 8.1, albumin 2.1. IMPRESSIONS AND RECOMMENDATIONS: 1. Bronchiectasis with pleural effusions, significant structural damage from prior malignancy: Recommend efforts towards mucociliary clearance, recommend her getting out of bed to chair during the day. I have encouraged better nutrition. Better protein intake. 2. Abnromal chest CT: I cannot rule out the possibility of underlying malignancy continuing; however, at this point in time would not perform bronchoscopy during active infection, poor mucociliary clearance and recent empyema. My plan is to allow her to heal from this process and in 1 months time obtain a PET scan to see if there is any evidence of recurrence of malignancy and then therefore I can focus biopsies if necessary. Patient understands plan. MTDD
[2020-04-08 16:00] VITALS: BP 111/58
[2020-04-08 20:00] VITALS: BP 118/72
[2020-04-09] VITALS: BP 100/54
[2020-04-09] MEDS: methylPREDNISolone 40MG 1ML VIAL IV SCH ×2 (03:41→10:15)
[2020-04-09 04:00] VITALS: BP 90/60
[2020-04-09] MEDS: LEVALBUTEROL 1.25 MG/0.5 ML CONCENTRATE NEB NEB SCH ×3 (04:00→11:58)
[2020-04-09 05:26] LABS: BASO % 0.1 % (0.0-1.0); EOS % 0.1 % (0.0-3.0); HEMATOCRIT 27.7 % (36.0-47.0); HEMOGLOBIN 8.3 g/dl (12.0-15.5); LYMPH # 0.3 10^3/uL (1.5-5.0); LYMPH % 3.9 % (24.0-44.0); MEAN CORPUSCULAR HEMOGLOBIN 25.5 pg (27.0-33.0); MEAN CORPUSCULAR VOLUME 85.2 fl (80.0-96.0); MONO # 0.4 10^3/uL (0.0-0.8); MONO % 4.4 % (0.0-5.0); NEUTROPHILS # 7.2 10^3/uL (1.5-8.5); NEUTROPHILS % 90.7 % (36.0-66.0); PLATELET COUNT, AUTOMATED 546 10^3/uL (150-450); RED BLOOD COUNT 3.25 10^6/uL (4.00-5.40); WHITE BLOOD COUNT 7.9 10^3/uL (4.0-10.0)
[2020-04-09 05:47] LABS: BLOOD UREA NITROGEN 27 MG/DL (7-18); CALCIUM LEVEL 8.4 MG/DL (8.5-10.1); CARBON DIOXIDE LEVEL 26 MEQ/L (21-32); CHLORIDE LEVEL 111 MEQ/L (98-107); CREATININE FOR GFR 0.72 MG/DL (0.55-1.30); GLOMERULAR FILTRATION RATE > 60.0 (>51); GLUCOSE, FASTING 156 MG/DL (70-100); POTASSIUM SERUM 3.6 MEQ/L (3.5-5.1); SODIUM LEVEL 144 MEQ/L (136-145)
[2020-04-09] MEDS: LevoFLOXacin 750 MG TABLET PO SCH (05:47)
[2020-04-09] MEDS: SLF 3 ML SYR IV SCH (05:47)
[2020-04-09] MEDS: LEVOTHYROXINE 75MCG TABLET (0.075MG) PO SCH (05:47)
[2020-04-09] MEDS: SODIUM CHLORIDE HYPERTONIC 3% 15ML NEB SOL INH SCH (07:34)
[2020-04-09 07:35] VITALS: O2SAT 94
[2020-04-09] MEDS: ACETYLCYSTEINE 20% 4 ML VIAL (200MG/ML) INH SCH (07:35)
[2020-04-09 08:00] VITALS: BP 117/61
[2020-04-09] MEDS: DOCUSATE SODIUM 100 MG CAP PO SCH (09:00)
[2020-04-09] MEDS: ENOXAPARIN 30MG/0.3ML SYRINGE (J1650 PER 10MG) SC SCH (09:00)
[2020-04-09] MEDS: MOM 30ML SUSPENSION UDC PO SCH (09:00)
[2020-04-09] MEDS: FERROUS SULFATE 325MG TAB PO SCH (09:16)
[2020-04-09] MEDS: PANTOPRAZOLE 40MG TAB (PROTONIX) PO SCH (09:16)
[2020-04-09] MEDS ORDERED: PANT40TA29 PO (09:28)
[2020-04-09] MEDS ORDERED: ALBU1.25 NEB (09:28)
[2020-04-09] MEDS ORDERED: DILA2TAB6 PO (09:28)
[2020-04-09] MEDS ORDERED: PRED10TA2 PO (09:28)
--- NOTE | 2020-04-09 11:27 | IPNPDOC ---
Text Note Date of Service The patient was seen on 04/09/20. NOTE SUBJECTIVE: -No acute events overnight -Denies chest pain, worsening SOB, fevers, chills -No N/V/D -On 2L NC this morning OBJECTIVE: PHYSICAL EXAMINATION: VS: Please see below, soft BPs, afebrile, on room air CONSTITUTIONAL: No acute distress, resting comfortably, AAO x 3 EYES: PERRLA, EOMI HENT: NCAT, MMM CV: Regular rate and rhythm, S1S2 normal, no murmurs/rubs/gallops CHEST: Bilateral upper airway transmitted sounds, no destinee crackles, no wheezing GI: Scaphoid, normoactive sounds in all 4 quadrants, soft, nontender, nondistended, no rebound or guarding, no hepatosplenomegaly or palpable masses EXT: No LE edema, WWP, 2+ DP pulses INTEGUMENTARY: Intact, no rashes, no lesions, no erythema. Pigtails in L posterior chest without surrounding erythema, rashes or lesions NEUROLOGIC: Cranial Nerves II-XII are intact, no focal deficits, 5/5 strength in all 4 extremities PSYCHIATRIC: AOx3, depressed mood LABORATORY DATA: Reviewed. Please see below WBC 7.9 hgb 8.3 Platelets 546 na 144 K 3.6 Cr 0.72 MICROBIOLOGY: Blood cultures x 2 sets: NGTD Pleural fluid Cx: NGTD Pleural fluid fungal Cx: pending Sputum Cx: collected 04/07/20, pending IMAGING: CTA chest 04/07/20: 1. No pulmonary embolus identified. 2. Left pleural pigtail catheter placed since 04/05/20, with resolution of previous left pleural effusion, now with trace pleural gas medially toward the apex. 3. Re-expansion of left lung now with patchy and dense ground-glass and airspace opacities inferiorly, particularly in the lower lobe, suggesting pneumonia. 4. Similar right pleural collections, including fluid and gas anteriorly and loculated fluid posteriorly. 5. Similar extensive airspace opacity in the residual postoperative right lung medially and posteroinferiorly. 6. Similar small pericardial effusion. CT chest with contrast 04/05/20: 1. Interval removal of previously visualized right pleural catheter with loculated 9.7 by 6.0 by 7.3 cm air and fluid pleural collection in the inferior right hemithorax, consistent with empyema in the appropriate clinical setting. 2. Extensive residual right-sided airspace disease, disproportionately localized in the medial aspect of the right lung, along with volume loss. Bronchoscopy can be performed for further evaluation, if clinically indicated. 3. Dependent moderate sized left pleural effusion demonstrated. Echocardiogram 02/2020: 1. Normal left ventricular size and wall thickness. Low normal global left ventricular systolic function in limited views. 2. Normal left atrium. Normal right atrium and left ventricle. 3. Normal aortic root. 4. Trace pericardial effusion was noted. No evidence of cardiac tamponade. 5. Mildly calcified aortic valve with normal leaflet excursion. Mildly calcified mitral annulus with normal anterior mitral valve leaflet motion. Normal tricuspid valve. The pulmonic valve and proximal pulmonary artery branches were not well visualized. 6. The inferior vena cava was normal in size. Central venous pressure is most likely normal. 7. Doppler low normal global left ventricular systolic function. Not mentioned above, there are features consistent with grade 2 left ventricular systolic dysfunction. 8. Aortic valve sclerosis with mild aortic regurgitation, but no aortic stenosis. 9. Mitral annulus calcification with mild mitral regurgitation. 10. Mild tricuspid regurgitation with mild pulmonary hypertension. There was a peak velocity of 2.7 msec across the tricuspid valve. 11. Trace pericardial effusion. No evidence of cardiac tamponade. 12. This was compared with most recent echocardiogram of 12/07/2019 and at that time, moderate pericardial effusion was noted. 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 PLAN: Acute hypoxic respiratory failure likely multifactorial 2/2 to bronchiectasis with mucocilliary clearance difficulty. Also recent dx of pneumonia (prior admission), empyema and bilateral pleural effusions, with L being large on this return. -S/p pigtail catheter placement 04/05/20 -Hx of radiation which can be cause of difficulty clearing secretions and difficulty swallowing per patient, concern for aspiration in the past -CTA negative for pulmonary embolus: Left pleural effusion appears improving, could not r/o PNA underneath. Similar right pleural collections, including fluid and gas anteriorly and loculated fluid posteriorly. (note: the right was diagnosed as empyema on last admission). continuing on levofloxacin. -Last echo above, preserved EF -F/u sputum cx, blood cultures above -Supplemental O2, monitor I&Os, acapella Q2hrs while awake -C/w xopenex ATC and PRN, humidified O2, mucinex, swallowing evaluation recs -Pulm consulted (Dr. Zepeda) who added methylprednisolone -Dr. Harman (thoracic surgery) consulted, who placed a pigtail and drained the L large effusion -Frankly, I believe Genesis is the point where she qualifies for [facility] use of supplemental oxygen at least at 2L PRN as she has required it PRN throughout her last 2 hospital stays. -The reaccumulation of her pleural effusions will continue to pause a risk for acute on chronic hypoxemic respiratory failure and future presentations and fut ure drainage but that can be managed with Dr. Harman as it unfolds and if it becomes indicated may end up requiring pleurX that she has avoided thus far. Elevated BNP, no prior hx of CHF -BNP >1380, prior on file 1043 in 02/2020 -Euvolemic on exam, will monitor -Echo from 02/2020 above -Diurese intermittently PRN, careful with soft blood pressure Pericardial effusion -16 mm in size currently -Echo in 11/2019 and 02/2020 showed to be mild with no evidence of cardiac tamponade -Denies chest pain, increased SOB, trops normal Hypotension likely due to hypovolemia -Baseline BP 110-120 from prior records. -continue gentle IVF hydration at 75 cc/hr Adenocarcinoma of the lung -Was last seen by medical oncology 03/17/20, follows with Dr. Meade -follow-up in the outpatient setting with medical oncology and repeat PET scan imaging as planned Hypothyroidism -C/w Levothyroxine Anemia likely 2/2 iron deficiency - C/w Ferrous sulfate DVT prophylaxis - c/w Lovenox DISPOSITION: Admitted under inpatient status. Pulmonary and thoracic surgery consulted. PT/OT. Plan is discharge back to home. VS,Fishbone, I+O VS, Fishbone, I+O Laboratory Tests 04/09/20 04:59 Vital Signs Date Time Temp Pulse Resp B/P (MAP) Pulse Ox O2 Delivery O2 Flow Rate FiO2 04/09/20 07:35 94 Nasal Cannula 2.0 04/09/20 04:00 97.7 99 19 90/60 (70) 04/06/20 05:07 96 I&O- Last 24 Hours up to 6 AM 04/09/20 05:59 Intake Total 1120 ml Output Total 450 ml Balance 670 ml EDSON WAGNER MD Apr 09, 2020 08:16
--- NOTE | 2020-04-09 11:30 | DS.PDOC ---
Discharge Summary General Date of Admission Apr 05, 2020 at 11:59 Date of Discharge 04/09/2020 Attending Physician: EDSON WAGNER MD Discharge Summary PROCEDURES PERFORMED DURING STAY: Pigtail catheter placement and L pleural fluid drainage on 04/05/2020 ADMITTING DIAGNOSES: 1. Acute And Chronic Respiratory Failure With Hypoxia. DISCHARGE DIAGNOSES: 1. Acute hypoxemic respiratory failure 2/2 large left-sided pleural effusion, most likely transudative. 2. Right empyema, right chest, seemingly resolved. 3. Radiation pneumonitis and destruction of underlying parenchyma with difficulty with mucociliary clearance 4. Severe bronchiectasis. 5. Mucous plugging. 6. Stage IIIB lung cancer status post radiation and systemic chemotherapy. 7. COPD exacerbation COMPLICATIONS/CHIEF COMPLAINT: Acute And Chronic Respiratory Failure With Hypoxia. HISTORY OF PRESENT ILLNESS: 59-year-old W with history of adenocarcinoma of right upper lobe status post chemotherapy, radiation and immunotherapy, radiation serositis of the lung, recurrent tonsillitis, hypothyroidism, COPD who was recently admitted for right lung empyema status post drainage (03/30/20) and now presented to [facility] emergency room with a chief complaint of increased shortness of breath 1 day after hospital discharge. Patient was recently admitted 03/25/2020 until 04/04/2020 for sepsis secondary to right lung PNA with empyema s/p chest tube drainage and was discharged on Levaquin (to complete 14 days). She was stable for discharge early in the day and went home on room air but returned stating that later in the evening she acutely developed shortness of breath with associated gurgling in her throat and "not being able to get air in". She stated that at times she feels as though she has a "bubble in her throat" and once it bursts she is able to breathe better. Patient stated at times she has difficulty swallowing and has difficulty clearing her secretions in her throat. She has had this issue in the past and states that it began after her radiation sessions for cancer. She otherwise denied chest pain, nausea, vomiting, fevers, chills, diarrhea. She reported that she had a nebulizer machine but could not find tubing for it. She also stated that she did not have nebulizer medications at home to use the machine anyway. HOSPITAL COURSE: In the emergency room the patient was found to be 63% on room air and slightly tachycardic with a heart rate of 109 and hypertensive. The patient was in mild respiratory distress initially. Chest x-ray showed to be similar compared to the last one on file; however, some small reaccumulation of right-sided pleural effusion. She was given steroids and nebulizer treatment and improved when the steroids were given. The patient was admitted for acute hypoxic respiratory failure and bilateral pleural effusions. While in the ED she had a CT chest with contrast without angiography that showed a large left pleural effusion and resolving R empyema and thoracic surgery and pulmonology were consulted. Dr. Harman placed a pigtail catheter on the left that immediately drained ~1L with immediate relief and was ultimately deemed transudative on analysis. Dr. Zepeda, started her on IV steroids, mucomyst and initially had wanted to do a bronch but held off after she improved and will defer to outpatient upon re-evaluation. She was otherwise continued on levaquin for the resolving empyema. Her hypoxemia resolved. She will continue to complete her levaquin course and will be prescribed a prednisone taper with plan to follow up with Dr. Zepeda, Kimani and oncology as an outpatient. Of note, she did eventually have the CTA that showed no PE. Also, Ms Elder has a damaged malfunctioning old nebulizer machine at home without proper tubing and would not be able to administer her albuterol nebs for SOB and we are thus prescribing her a new machine that would allow her to get this essential medication given her poor pulmonary reserve with bronchiec tasis, hx of lung CA s/p radiation changes with chronically collapsed portions of lung tissue with chronic effusions and presumed COPD. DISCHARGE MEDICATIONS: Please see below. ALLERGIES: Please see below. PHYSICAL EXAMINATION ON DISCHARGE: VITAL SIGNS: Please see below. CONSTITUTIONAL: No acute distress, resting comfortably, AAO x 3 EYES: PERRLA, EOMI HENT: NCAT, MMM CV: Regular rate and rhythm, S1S2 normal, no murmurs/rubs/gallops CHEST: Bilateral upper airway transmitted sounds, no destinee crackles, no wheezing GI: Scaphoid, normoactive sounds in all 4 quadrants, soft, nontender, nondist ended, no rebound or guarding, no hepatosplenomegaly or palpable masses EXT: No LE edema, WWP, 2+ DP pulses INTEGUMENTARY: Intact, no rashes, no lesions, no erythema. Pigtails in L posterior chest without surrounding erythema, rashes or lesions NEUROLOGIC: Cranial Nerves II-XII are intact, no focal deficits, 5/5 strength in all 4 extremities PSYCHIATRIC: AOx3, depressed mood IMAGING: CTA chest 04/07/20: 1. No pulmonary embolus identified. 2. Left pleural pigtail catheter placed since 04/05/20, with resolution of previous left pleural effusion, now with trace pleural gas medially toward the apex. 3. Re-expansion of left lung now with patchy and dense ground-glass and airspace opacities inferiorly, particularly in the lower lobe, suggesting pneumonia. 4. Similar right pleural collections, including fluid and gas anteriorly and loculated fluid posteriorly. 5. Similar extensive airspace opacity in the residual postoperative right lung medially and posteroinferiorly. 6. Similar small pericardial effusion. CT chest with contrast 04/05/20: 1. Interval removal of previously visualized right pleural catheter with loculated 9.7 by 6.0 by 7.3 cm air and fluid pleural collection in the inferior right hemithorax, consistent with empyema in the appropriate clinical setting. 2. Extensive residual right-sided airspace disease, disproportionately localized in the medial aspect of the right lung, along with volume loss. Bronchoscopy can be performed for further evaluation, if clinically indicated. 3. Dependent moderate sized left pleural effusion demonstrated. She also had daily CXRs: that showed no pneumothorax and were otherwise stable from prior. PROGNOSIS: Fair, high risk for readmission ACTIVITY: As tolerated DIET: Regular DISCHARGE PLAN: Home with levaquin and steroids, to follow up with pulm, onc and thoracic surgery DISPOSITION: Home DISCHARGE INSTRUCTIONS: Home with levaquin and steroids, to follow up with pulm, onc and thoracic surgery ITEMS TO FOLLOWUP ON ON OUTPATIENT: pleural effusions history of lung CA COPD and bronchiectasis R empyema resolution DISCHARGE CONDITION: Stable TIME SPENT ON DISCHARGE: 56 minutes. Vital Signs/I&Os Vital Signs Date Time Temp Pulse Resp B/P (MAP) Pulse Ox O2 Delivery O2 Flow Rate FiO2 04/09/20 07:35 94 Nasal Cannula 2.0 04/09/20 04:00 97.7 99 19 90/60 (70) 04/06/20 05:07 96 I&O- Last 24 Hours up to 6 AM 04/09/20 05:59 Intake Total 1120 ml Output Total 450 ml Balance 670 ml Laboratory Data Labs 24H Laboratory Tests 2 04/09/20 04:59: Immature Granulocyte % (Auto) 0.8, Neutrophils (%) (Auto) 90.7H, Lymphocytes (%) (Auto) 3.9L, Monocytes (%) (Auto) 4.4, Eosinophils (%) (Auto) 0.1, Basophils (%) (Auto) 0.1, Neutrophils # (Auto) 7.2, Lymphocytes # (Auto) 0.3L, Monocytes # (Auto) 0.4, Eosinophils # (Auto) 0.0, Basophils # (Auto) 0.0, Nucleated Red Blood Cells % (auto) 0.0, Anion Gap 7L, Glomerular Filtration Rate > 60.0, Ca lcium Level 8.4L CBC/BMP Laboratory Tests 04/09/20 04:59 Microbiology Microbiology 04/07/20 Gram Stain - Final, Resulted 04/07/20 Sputum Culture, Resulted Pending 04/05/20 Acid Fast Stain, Received Pending 04/05/20 Mycobacterial Culture, Received Pending 04/05/20 Fungal Smear, Received Pending 04/05/20 Fungal Culture, Received Pending 04/05/20 Gram Stain - Final, Complete 04/05/20 Anaerobic Culture - Final, Complete 04/05/20 Body Fluid Culture - Final, Complete 04/05/20 Blood Culture - Preliminary, Resulted No Growth after 72 hours. All specime... 04/05/20 Blood Culture - Preliminary, Resulted No Growth after 72 hours. All specime... Discharge Medications Scheduled Ferrous Sulfate (Ferrous Sulfate) 325 Mg Tablet.dr, 325 MG PO BID, (Reported) Levofloxacin (Levofloxacin) 750 Mg Tablet, 750 MG PO DAILY, (Reported) Levothyroxine Sodium (Synthroid) 75 Mcg Tablet, 75 MCG PO DAILY, (Reported) Pantoprazole Sodium (Pantoprazole Sodium) 40 Mg Tablet.dr, 40 MG PO DAILY Prednisone (Prednisone) 10 Mg Tablet, 1 TAB PO ASDIRECTED 4 tabs BID for 7d, then 4 tabs QD for 7d, then 2 tab QD for 7d, then 1 tab for 7d Scheduled PRN Albuterol Sulfate (Albuterol Sulfate) 1.25 Mg/3 Ml Vial.neb, 1 VIAL NEB Q4-6HP PRN for wheezing Hydromorphone HCl (Dilaudid) 2 Mg Tablet, 1 MG PO Q6HP PRN for MODERATE/SEVERE PAIN (PS 5-10) Allergies Coded Allergies: No Known Allergies (Unverified , 08/07/18) EDSON WAGNER MD Apr 09, 2020 08:39
[2020-04-09 12:00] VITALS: BP 88/64
[2020-04-09 12:35] VITALS: BP 112/60
--- NOTE | 2020-04-09 14:06 | IPN ---
DATE: 04/09/2020 SUBJECTIVE: Mrs. Elder had her chest catheter removed yesterday. She is doing extraordinarily well, having walked two laps around the PCU today. She said she is breathing better. In fact she knows that she is breathing a whole lot better than she was even before admission. VITAL SIGNS: T-max 97.7 with a heart rate that ranges between 95 and 102 in sinus rhythm, respiratory rate of 16 to 20 without the use of accessory muscles, who is 94 to 97% saturated now on room air, and blood pressure ranging between 117/61 to 90/60. PHYSICAL EXAMINATION: Her left lung is much clearer with much fewer rhonchi. She still has a number of scattered rhonchi, not all of which clear with coughing. She has bronchophony on the right side with dull percussion on the right side. Her percussion was full to the diaphragm on the left side. Cardiac: Without murmurs, clicks, gallops or rubs. I cannot feel her PMI. S1 and S2 are normal. Abdomen: Soft, nontender, bowel sounds positive. No hepatomegaly. No CVA tenderness. Extremities: Show no pretibial edema, no calf tenderness. No differential swelling of the upper extremities. Skin: Warm, dry and perfused without cyanosis or mottling including that of nailbeds and knees. HEENT: Supple. There is no jugular venous distention, no subcutaneous emphysema. Trachea is midline. Mouth shows her mucous membranes to be pink and moist. Lips and commissures show no thrush. Pupils are equal and reactive. Extraocular motor is intact. Sclerae nonicteric. Neuro: CN II-XII intact with gross motor, gross sensation intact. Gait is not tested. Psychiatric: Awake, alert and oriented x3 with appropriate mood and affect and conversational. LABORATORY DATA: White count 7.9, hemoglobin/hematocrit 8.3 and 27.7 respectively with platelet count of 546,000. Hemoglobin and hematocrit is increased from 7.8 and 25.8 yesterday. Differential shows 90% neutrophils, 3% lymphocytes and 4% monocytes. There are no immature forms or toxic granulations. Her electrolytes are essentially normal with BUN and creatinine of 27 and 0.72, glucose 156 and calcium 8.4. IMAGING STUDIES: Her chest x-ray today still shows the infiltrative process in the left lower hemithorax. It is again probably post expansion pulmonary edema. The air fluid level on the right side has not appreciably changed since yesterday. IMPRESSION: 1. Left-sided pleural effusion: Most likely transudative. 2. Empyema right chest: Seemed to resolve. 3. History of pericardial effusion: Nonmalignant. 4. Radiation pneumonitis with destruction of underlying parenchyma. 5. Severe bronchiectasis. 6. Mucous plugging. 7. Stage 3B lung cancer; status post radiation and systemic therapy. PLAN/DISCUSSION: I have no objection with her going home today. She will be sent home on home antibiotics consisting of Levaquin. Dr. Zepeda and I will see her back in the office in 10-14 days with a chest x-ray. She was instructed to continue to use her lung expansion equipment including Acapella and incentive spirometry. RADHA
--- NOTE | 2020-04-09 15:09 | REPVR ---
PROCEDURE INFORMATION: Exam: XR Chest, 2 Views Exam date and time: 04/09/2020 6:00 AM Age: 59 years old Clinical indication: Condition or disease; Other: Chest tube; Additional info: Pleural effusion TECHNIQUE: Imaging protocol: XR of the chest Views: 2 views. COMPARISON: CR Chest, 2 view PA, Lat 04/08/2020 7:42 AM FINDINGS: Tubes, catheters and devices: ECG leads/contacts overlie and partially obscure the anatomy. The left pleural drainage catheter has been removed. Lungs: Stable mild left lower lobe basilar consolidation. Stable large right upper lobe volume loss. Stable large consolidative opacities of the right upper lobe and right lower lobe. Pleural space: No evident left pneumothorax. Increased small left pleural effusion. Stable loculated large right anterior hydropneumothorax. Heart/Mediastinum: Stable rightward mediastinal shift. The cardiac shadow is partially silhouetted. No enlargement of the left heart border. Bones/joints: Degenerative spine disease. IMPRESSION: 1. The left pleural drainage catheter has been removed. Increased small left pleural effusion. 2. Stable loculated large right anterior hydropneumothorax. 3. Stable right lung volume loss and large consolidations. 4. Stable left lower lobe mild consolidation. Electronically signed by: Roberto Epstein On 04/09/2020 15:09:00 PM
[2020-04-18] MEDS ORDERED: AZEL1SPR3 NARES (10:13)
== END 2020-04-09 13:58 | disposition home or self-care (01) | DRG 143 ==
LOC: M ED 09:12 → M ED INP 11:59 → ENRESERV 12:47 → M PCU 13:27
PROVIDERS: ADMIT Internal Medicine; ATTEND Internal Medicine
PROC: 0W9B00Z Drainage of Left Pleural Cavity with Drainage Device, Open Approach (ICD-10-PCS; principal; 2020-04-05)
DX: J90 Pleural effusion, not elsewhere classified (principal); J96.21 Acute and chronic respiratory failure with hypoxia; J70.0 Acute pulmonary manifestations due to radiation; I95.89 Other hypotension; I31.3 Pericardial effusion (noninflammatory); J44.1 Chronic obstructive pulmonary disease with (acute) exacerbation; J98.09 Other diseases of bronchus, not elsewhere classified; E03.9 Hypothyroidism, unspecified; D50.9 Iron deficiency anemia, unspecified; D47.3 Essential (hemorrhagic) thrombocythemia; Z85.118 Personal history of other malignant neoplasm of bronchus and lung; Z92.21 Personal history of antineoplastic chemotherapy; Z92.3 Personal history of irradiation; Z87.891 Personal history of nicotine dependence; Z79.899 Other long term (current) drug therapy; Z99.81 Dependence on supplemental oxygen

== ENCOUNTER 2020-04-14 22:38 | Inpatient (IN) | payer OTHER ==
[~2020-04-14] VITALS: Ht 149.9 cm; Wt 38.5 kg
[~2020-04-14 22:38] MED LIST changes: +ALBU1.25 NEB; +DILA2TAB6 PO; +FERR325T3 PO; +PANT40TA29 PO
[2020-04-14] MEDS ORDERED: methylPREDNISolone 125MG 2ML VIAL IV ONE (23:00)
[2020-04-14 23:01] LABS: BASO % 0.1 % (0.0-1.0); EOS % 0.1 % (0.0-3.0); HEMATOCRIT 43.6 % (36.0-47.0); LYMPH # 2.2 10^3/uL (1.5-5.0); LYMPH % 10.1 % (24.0-44.0); MEAN CORPUSCULAR HEMOGLOBIN 25.9 pg (27.0-33.0); MEAN CORPUSCULAR HGB CONC 29.8 g/dl (32.0-36.5); MONO # 2.1 10^3/uL (0.0-0.8); MONO % 9.6 % (0.0-5.0); NEUTROPHILS % 78.2 % (36.0-66.0); PLATELET COUNT, AUTOMATED 550 10^3/uL (150-450); RED BLOOD COUNT 5.01 10^6/uL (4.00-5.40); WHITE BLOOD COUNT 21.8 10^3/uL (4.0-10.0)
[2020-04-14 23:22] LABS: ALBUMIN 3.2 GM/DL (3.2-5.2); ALT/SGPT 20 U/L (12-78); BILIRUBIN,DIRECT 0.1 MG/DL (0.0-0.2); BILIRUBIN,TOTAL 0.4 MG/DL (0.2-1.0); BLOOD UREA NITROGEN 26 MG/DL (7-18); CALCIUM LEVEL 9.6 MG/DL (8.5-10.1); CARBON DIOXIDE LEVEL 28 MEQ/L (21-32); CHLORIDE LEVEL 104 MEQ/L (98-107); CK-MB VALUE MASS 3.2 NG/ML (<3.6); CPK CREATINE PHOSPHOKINASE 99 U/L (26-192); CREATININE FOR GFR 0.85 MG/DL (0.55-1.30); GLOMERULAR FILTRATION RATE > 60.0 (>51); GLUCOSE, FASTING 151 MG/DL (70-100); MB/CK RELATIVE INDEX 3.23 (< OR =4); NT-PRO BNP 2264 PG/ML (<125); POTASSIUM SERUM 5.2 MEQ/L (3.5-5.1); SODIUM LEVEL 136 MEQ/L (136-145); TOTAL PROTEIN 7.4 GM/DL (6.4-8.2); TROPONIN I < 0.02 NG/ML (< 0.10)
[2020-04-14] MEDS: IPRATROPIUM 0.5MG/ALBUTEROL 2.5MG INH SOL UD 3ML (DUONEB) NEB PRN (23:25)
[2020-04-14] MEDS ORDERED: PIPERACILLIN/TAZOBACTAM SOD 3.375 GM in D5W MINI-BAG PLUS 50 ML IV ONE (23:30)
[2020-04-14] MEDS ORDERED: ISOVUE-370 76% 100ML VIAL As Ordered ONE (23:32)
[2020-04-15] VITALS (10 sets, daily range): BP systolic 117–149; BP diastolic 57–82
--- NOTE | 2020-04-15 00:05 | REPVR ---
PROCEDURE INFORMATION: Exam: XR Chest, 1 View Exam date and time: 04/14/2020 11:21 PM Age: 59 years old Clinical indication: Cough and dyspnea; Additional info: Dyspnea/cough TECHNIQUE: Imaging protocol: XR of the chest Views: 1 view. COMPARISON: CR Chest, 2 view PA, Lat 04/09/2020 7:49 AM FINDINGS: Lungs: Patient is a large mass in the right paratracheal region with air bronchograms and encasement of the right mainstem bronchus. There is patchy increased density at the left lung base consistent with pneumonic infiltrate. Pleural space: There is a very large right pleural effusion including large loculation of fluid and this is unchanged. There is a moderate left pleural effusion which is mildly increased.. Heart/Mediastinum: Known pericardial effusion. Bones/joints: Unremarkable. IMPRESSION: 1. Large right paratracheal mass encasing the right bronchus. 2. Large right pleural effusion much of which is loculated. 3. Moderate left pleural effusion has increased. Extensive pneumonic infiltrate left lung base. Electronically signed by: Walter Roberson On 04/15/2020 00:05:15 AM
[2020-04-15] MEDS ORDERED: ALBU1.25 INH (00:23)
[2020-04-15] MEDS ORDERED: PRED10TA2 PO (00:23)
--- NOTE | 2020-04-15 00:33 | REPVR ---
PROCEDURE INFORMATION: Exam: CT Angiography Chest With Contrast Exam date and time: 04/14/2020 11:47 PM Age: 59 years old Clinical indication: Shortness of breath; Additional info: SOB. History lung cancer. TECHNIQUE: Imaging protocol: Computed tomographic angiography of the chest with intravenous contrast. 3D rendering (Not supervised by radiologist): MIP and/or 3D reconstructed images were created by the technologist. Radiation optimization: All CT scans at this facility use at least one of these dose optimization techniques: automated exposure control; mA and/or kV adjustment per patient size (includes targeted exams where dose is matched to clinical indication); or iterative reconstruction. Contrast material: ISOVUE 370; Contrast volume: 75 ml; Contrast route: INTRAVENOUS (IV); COMPARISON: CT ANGIO CHEST 04/07/2020 10:44 AM FINDINGS: Limitations: Examination is limited by motion artifact. Pulmonary arteries: No definite pulmonary emboli. There is coarse group appearance to the right lower lobe pulmonary arteries. Aorta: Mild atherosclerotic disease. No aortic aneurysm. No aortic dissection. Tracheobronchial tree: Visualized airway is unremarkable. Lungs: Right upper lobe is dense and collapse. Mild consolidation in the right lower lobe. Right middle lobe is not well seen. Compressive atelectasis of the left lower lobe. Pleural space: Large collection in the anterior right hemithorax measuring approximately 3.9 x 10.0 x 6.8 cm containing fluid and gas. Moderate left pleural effusion. Heart: Unremarkable. No cardiomegaly. No pericardial effusion. Lymph nodes: Unremarkable. No enlarged lymph nodes. Diaphragm: Elevated right hemidiaphragm. Bones/joints: Unremarkable. No acute fracture. Soft tissues: Unremarkable. IMPRESSION: 1. Negative for pulmonary emboli. 2. Right hydropneumothorax. Unchanged from prior. 3. Mild consolidation in the right lower lobe. Unchanged from prior. 4. Right upper lobe is dense and collapsed. Unchanged from prior. Correlate with cancer history. 5. Right middle lobe is not well seen. Question right middle lobectomy. 6. Compressive atelectasis of the left lower lobe. Atelectasis is new. However, other consolidations have resolved. 7. Moderate left pleural effusion. Increased from prior. Electronically signed by: Thaddeus Hardy On 04/15/2020 00:33:24 AM
[2020-04-15] MEDS ORDERED: FUROSEMIDE 40MG/4ML VIAL (J1940) IV ONE (02:00)
[2020-04-15] MEDS ORDERED: ALBUTEROL SULFATE 2.5 MG/0.5 ML INH NEB SOLN INH PRN (03:00)
[2020-04-15] MEDS ORDERED: ACETAMINOPHEN TAB 650MG DOSE (2X325MG) PO PRN (03:00)
--- NOTE | 2020-04-15 03:14 | HPEPDOC ---
General Date of Admission Apr 15, 2020 at 02:49 Date of Service: Apr 15, 2020 Chief Complaint The patient is a 59-year-old female admitted with a reason for visit of Acute On Chronic Resp Failure With Hypoxia. 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 Today patient developed severe sudden shortness of breath. In ER patient was found to have on ABG pH 7.2, CO2 50, oxygen 76. Patient was placed on BiPAP and stabilized. Also patient was found to have white blood count of 21.8, lactic acid 5, potassium 5.2, BNP 2200. CTA chest was done and showed Right hydropneumothorax. Unchanged from prior. Mild consolidation in the right lower lobe. Unchanged from prior. Right upper lobe is dense and collapsed. Unchanged from prior. Correlate with cancer history. Moderate left pleural effusion. Increased from prior Home Medications Scheduled Ferrous Sulfate (Ferrous Sulfate) 325 Mg Tablet.dr, 325 MG PO BID, (Reported) Levofloxacin (Levofloxacin) 750 Mg Tablet, 750 MG PO DAILY, (Reported) STARTING 04/04/2020 Levothyroxine Sodium (Synthroid) 75 Mcg Tablet, 75 MCG PO DAILY, (Reported) Prednisone (Prednisone) 10 Mg Tablet, 10 MG PO TAPER, (Reported) TAKES 40MG TWICE A DAY FOR 7 DAYS, THEN TAKES 40MG DAILY FOR 7 DAYS, THEN TAKES 20MG DAILY FOR 7 DAYS THEN TAKES 10MG DAILY FOR 7 DAYS. LAST DOSE WAS THE 4TH DAY OF 40MG TWICE A DAY. Scheduled PRN Albuterol Sulfate (Albuterol Sulfate) 1.25 Mg/3 Ml Vial.neb, 1.25 MG INH Q4H PRN for SHORTNESS OF BREATH, (Reported) Allergies Coded Allergies: No Known Allergies (Unverified , 08/07/18) Past Medical History Medical History 1. Right lung empyema s/p drainage 2. 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 Recurrent tonsillitis 5. Hypothyroidism 6. COPD Surgical History 1. Thoracentesis for chronic R pleural effusion (03/30/20) 2. Pericardiocentesis for chronic pericardial effusion 3. Thoracentesis for recent empyema 4. R shoulder surgery 5. SOCIAL HISTORY: Former smoker, smoked 1 ppd for 20 years, quit 14 years ago Occasional alcohol Denies illicit drugs Family History I personally reviewed family history and found not pertinent Social History * Smoker: former Smoker Alcohol: Denies Drugs: denies A-FIB/CHADSVASC A-FIB History Current/History of A-Fib/PAF?: No Current PO Anticoag Therapy: No Review of Systems Constitutional: Reports: Chills, Malaise Eyes: Denies: Pain ENT: Denies: Head Aches Skin: Denies: Rash, Lesions Pulmonary: Reports: Dyspnea Cardiovascular: Denies: Chest Pain, Palpitations Gastrointestinal: Denies: Nausea, Vomiting Genitourinary: Denies: Dysuria Hematologic: Denies: Bruising Endocrine: Denies: Polydipsia, Polyphagia Musculoskeletal: Denies: Neck Pain Neurological: Denies: Weakness Psych: Reports: Mood Normal Physical Examination General Exam: Positive: Alert, Cooperative Eye Exam: Positive: PERRLA ENT Exam: Positive: Atraumatic Neck Exam: Positive: Supple, JVD Chest Exam: Positive: Rhonchi, Wheezing Heart Exam: Positive: Tachycardic Telemetry: Positive: Sinus Abdomen Exam: Positive: Normal bowel sounds Extremity Exam: Positive: Clubbing; Negative: Cyanosis Skin Exam: Positive: Nl turgor and temperature Neuro Exam: Positive: Cranial Nerves 3-12 NL Psych Exam: Positive: Mental status NL Vital Signs Vital Signs Date Time Temp Pulse Resp B/P (MAP) Pulse Ox O2 Delivery O2 Flow Rate FiO2 04/15/20 02:15 166/84 (111) 04/15/20 02:08 108 20 100 NIPPV (BIPAP/CPAP) 40 04/14/20 23:22 97.9 Laboratory Data Labs 24H Laboratory Tests 2 04/14/20 22:45: Immature Granulocyte % (Auto) 1.9, Neutrophils (%) (Auto) 78.2H, Lymphocytes (%) (Auto) 10.1L, Monocytes (%) (Auto) 9.6H, Eosinophils (%) (Auto) 0.1, Basophils (%) (Auto) 0.1, Neutrophils # (Auto) 17.0H, Lymphocytes # (Auto) 2.2, Monocytes # (Auto) 2.1H, Eosinophils # (Auto) 0.0, Basophils # (Auto) 0.0, Nucleated Red Blood Cells % (auto) 0.0, Anion Gap 4L, Glomerular Filtration Rate > 60.0, Lactic Acid Level 5.0*H, Calcium Level 9.6, Total Bilirubin 0.4, Direct Bilirubin 0.1, Aspartate Amino Transf (AST/SGOT) 24, Alanine Aminotransferase (ALT/SGPT) 20, Alkaline Phosphatase 115, Total Creatine Kinase 99, Creatine Kinase MB 3.2, Creatine Kinase MB Relative Index 3.23, Troponin I < 0.02, PP-Orf-V-Type Natriuretic Peptide 2264H, Total Protein 7.4, Albumin 3.2, Albumin/Globulin Ratio 0.8L 04/14/20 22:59: POC pH (Misc Panel) 7.278L, POC Base Excess (Misc Panel) -3.0L, POC Saturated Percent O2 (Misc) 93L, POC pO2 (Misc Panel) 76.0L, POC pCO2 (Misc Panel) 50.5H, POC HCO3 (Misc Panel) 23.6, POC Total CO2 (Misc Panel) 25.0 04/15/20 00:52: POC pH (Misc Panel) 7.457H, POC Base Excess (Misc Panel) 1.0, POC Saturated Percent O2 (Misc) 96, POC pO2 (Misc Panel) 78.0L, POC pCO2 (Misc Panel) 34.6L, POC HCO3 (Misc Panel) 24.4, POC Total CO2 (Misc Panel) 25.0 CBC/BMP Laboratory Tests 04/14/20 22:45 Microbiology Microbiology 04/14/20 Blood Culture, Received Pending 04/14/20 Blood Culture, Received Pending Assessment/Plan Patient is 59 years old female with past medical history of adenocarcinoma of right upper lobe status post chemotherapy, radiation and immunotherapy, radiation serositis of the lung, recurrent tonsillitis, hypothyroidism, COPD who was recently admitted for right lung empyema status post drainage and now presented to [facility] emergency room with a chief complaint of increased shortness of breath 1 day after hospital discharge. Today patient developed severe sudden shortness of breath. In ER patient was found to have on ABG pH 7.2, CO2 50, oxygen 76. Patient was placed on BiPAP and stabilized. Also patient was found to have white blood count of 21.8, lactic acid 5, potassium 5.2, BNP 2200. CTA chest was done and showed Right hydropneumothorax. Unchanged from prior. Mild consolidation in the right lower lobe. Unchanged from prior. Right upper lobe is dense and collapsed. Unchanged from prior. Correlate with cancer history. Moderate left pleural effusion. Increased from prior Problems (1) Sepsis Status: Acute Problem Text: Patient has leukocytosis, tachycardia and dyspnea Most likely secondary to pneumonia given multiple consolidation Levaquin, Zosyn IV Blood culture We'll check pro calcitonin (2) Acute on chronic respiratory failure with hypoxia and hypercapnia Status: Acute Problem Text: Multifactorial secondary to pleural effusion due to pneumonia and CHF exacerbation. Previous multiple pathology analysis of pleural fluid in 2019 was negative for malignancy Continue BiPAP Continue to monitor ABG (3) Pleural effusion on right Status: Acute Problem Text: Dr. Cain was contacted by phone she recommended to start antibiotics, Lasix steroids and continue BiPAP. Consider Dr. Harman consult for pleurocentesis if diuresis don't help with fluid reaccumulation Most likely BNP elevated secondary to increased consolidation in the lungs and pleural effusion (4) Lung cancer Status: Chronic Problem Text: -Was last seen by medical oncology 03/17/20 -follow-up medical oncology and repeat PET scan imaging Plan / VTE VTE Prophylaxis Ordered?: Yes DELIA MORALES DO Apr 15, 2020 03:14
[2020-04-15] MEDS: LEVOTHYROXINE 75MCG TABLET (0.075MG) PO SCH (06:29)
[2020-04-15] MEDS: FERROUS SULFATE 325MG TAB PO SCH ×3 (07:54→20:35)
[2020-04-15] MEDS: PIPERACILLIN/TAZOBACTAM SOD 3.375 GM in D5W MINI-BAG PLUS 50 ML IV SCH ×2 (07:54→16:32)
[2020-04-15] MEDS: HEPARIN SOD (PORCINE) 5000UNITS/ML 1ML VIAL/SYRINGE SC SCH ×2 (07:55→20:35)
[2020-04-15] MEDS ORDERED: methylPREDNISolone 125MG 2ML VIAL IV SCH (08:00)
--- NOTE | 2020-04-15 08:30 | ECGEPIP ---
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
[2020-04-15] MEDS ORDERED: LevoFLOXacin 750 MG TABLET PO SCH (09:00)
[2020-04-15] MEDS ORDERED: FUROSEMIDE 40MG/4ML VIAL (J1940) IV SCH ×2 (10:00→12:00)
[2020-04-15] MEDS: SYMBICORT 160/4.5MCG INHALER 6GM INH SCH ×2 (11:32→19:46)
--- NOTE | 2020-04-15 14:21 | IPNPDOC ---
Text Note Date of Service The patient was seen on 04/15/20. NOTE Subjective: Patient seen at bedside on 04/15/2020. She reports having some headache and dryness of her mouth from using the CPAP over the night. She reports her shortness of breath has improved. Denies having any chest pain, cough, nausea, vomiting, diarrhea, constipation. Off note: Patient refused PT today. Objective: General: Well developed, built: normal, Patient is awake, alert, oriented times three, sitting on bed , no apparent distress. Eyes: Conjunctiva clear, pupils equal round and reactive to light and accommodation. EOM full, Fundus: not visualized. ENT: Hearing Bilateral normal. No nasal deviation, oropharynx clear with no lesions/erythema. She doesn't have any teeth. Neck: supple, no masses, trachea midline, no thyroid nodules, masses, tenderness or enlargement. Cardiovascular: S1, S2, normal rhythm, no murmur, rub, or gallop. Respiratory: Rhonchi and wheezes heard in the lower lobes bilaterally. Dullness to percussion in the bilateral lower lobes. Abdomen: Soft, bowel sounds positive, no bruits. No tenderness on palpation. Liver edge, spleen, kidney not felt, no masses. Extremities: No clubbing or cyanosis. No edema, no tenderness. Spine: No kyphosis, no paraspinal tenderness, no costovertebral tenderness. 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 Cranial nerves III-XII grossly intact. Skin: No rashes, lesions, ulcerations, subcutaneous nodules or induration. Assessment: Ms. Hurtado is a 59 year old female patient with past medical history of adenocarcinoma of the right upper lung status post chemotherapy, radiation and immunotherapy, hypothyroidism, COPD who was in the recent past admitted for right lung empyema, status post drainage presented to the ED with a chief complaint of increased shortness of breath since a day. In the ED she was acidotic ABG pH of 7.2, CO2 15 and oxygen 76. And her WBC 21.8, lactic acid 5 potassium of 5.2 and BMI of 2200. CT of chest showed moderate left pleural effusion, right hydropneumothorax [unchanged to prior], mild consolidation of the right lower lobe [unchanged from prior]. Concerning for sepsis vs acute on chronic respiratory failure vs pleural effusion. Plan: 1. Sepsis: WBC of 21.8, tachycardic likely secondary to pneumonia. Continue Zosyn IV for now. Will discontinue Levaquin for now, will get pro-calcitonin level prior to changing antibiotics. - Will adjust antibiotics to PO form once PCT results Blood cultures were drawn pending results. 2. Acute on chronic respiratory failure: Likely multifactorial secondary to pleural effusion vs pneumonia vs CHF exacerbation. Her prior analysis of pleural fluid was negative for malignancy. Patient was on BiPAP overnight, she was doing well and so was downgraded to PCU. 3. Pleural effusion of the right lung: Will continue Zosyn for now, patient was getting IV Lasix 40 MG Q8H after the morning. She doesn't have any pedal edema and doesn't look fluid overloaded. Will decrease the dosage of IV Lasix 40 MG every 24 hours. Her images look similar to the prior admission. So no further interventions needed at this point of time. 4. Lung Carcinoma: Follows with medical oncology and last seen on 03/17/2020. 5. COPD: Patient was taking prednisone 10 mg at home [hold for now]. Continue Solu-Medrol 40 mg. Continue her nebulizers. 6. Hypothyroidism: Will continue Synthyroid 75mcg by mouth daily. 7. DVT prophylaxis: Heparin subcutaneous 5000 units. VS,Fishbone, I+O VS, Fishbone, I+O Laboratory Tests 04/14/20 22:45 Vital Signs Date Time Temp Pulse Resp B/P (MAP) Pulse Ox O2 Delivery O2 Flow Rate FiO2 04/15/20 10:00 95 26 129/69 (89) 96 Room Air 04/15/20 08:47 98.1 I&O- Last 24 Hours up to 6 AM 04/15/20 06:00 Intake Total 50 ml Output Total 1650 ml Balance -1600 ml GME ATTESTATION GME ATTESTATION My faculty preceptor for this patient encounter was physically present during the encounter and was fully available. All aspects of the patient interview, examination, medical decision making process, and medical care plan development were reviewed and approved by the faculty preceptor. The faculty preceptor is aware and concurs with the plan as stated in the body of this note and will attest to such by his/her cosignature. ATTENDING NOTE I, Meño Collier, have independently examined this patient and performed my own physical exam, as well as reviewed the documentation and edited where necessary. I have discussed in detail with the resident / student the findings and plan of treatment as documented by the resident / student and edited their note. I agree with their findings and treatment plan and have edited their documentation. I will continue to follow the patient during this hospital stay. Major Mac MD Apr 15, 2020 10:57 MEÑO COLLIER MD Apr 15, 2020 15:28
[2020-04-15 15:03] LABS: BLOOD UREA NITROGEN 20 MG/DL (7-18); CALCIUM LEVEL 9.5 MG/DL (8.5-10.1); CARBON DIOXIDE LEVEL 24 MEQ/L (21-32); CHLORIDE LEVEL 99 MEQ/L (98-107); CREATININE FOR GFR 0.85 MG/DL (0.55-1.30); GLOMERULAR FILTRATION RATE > 60.0 (>51); GLUCOSE, FASTING 164 MG/DL (70-100); POTASSIUM SERUM 3.9 MEQ/L (3.5-5.1); SODIUM LEVEL 138 MEQ/L (136-145)
[2020-04-15] MEDS: methylPREDNISolone 125MG 2ML VIAL IV SCH (16:32)
[2020-04-16 00:08] VITALS: BP 136/75
[2020-04-16] MEDS: methylPREDNISolone 125MG 2ML VIAL IV SCH (01:00)
[2020-04-16] MEDS ORDERED: MORPHINE 2 MG/ML 1ML VIAL (J2270) IV ONE (01:30)
[2020-04-16 04:00] VITALS: BP 137/75
[2020-04-16 05:39] LABS: HEMATOCRIT 39.7 % (36.0-47.0); HEMOGLOBIN 12.1 g/dl (12.0-15.5); MEAN CORPUSCULAR HEMOGLOBIN 26.3 pg (27.0-33.0); MEAN CORPUSCULAR HGB CONC 30.5 g/dl (32.0-36.5); MEAN CORPUSCULAR VOLUME 86.3 fl (80.0-96.0); PLATELET COUNT, AUTOMATED 382 10^3/uL (150-450)
[2020-04-16] MEDS: SYMBICORT 160/4.5MCG INHALER 6GM INH SCH ×2 (05:41→07:21)
[2020-04-16] MEDS: LEVOTHYROXINE 75MCG TABLET (0.075MG) PO SCH (05:57)
[2020-04-16] MEDS ORDERED: LevoFLOXacin 750 MG TABLET PO SCH (06:00)
[2020-04-16 06:09] LABS: CALCIUM LEVEL 9.3 MG/DL (8.5-10.1); CREATININE FOR GFR 1.05 MG/DL (0.55-1.30); GLOMERULAR FILTRATION RATE 57.5 (>51); MAGNESIUM LEVEL 2.6 MG/DL (1.8-2.4); POTASSIUM SERUM 3.3 MEQ/L (3.5-5.1)
--- NOTE | 2020-04-16 06:51 | CR ---
PULMONARY CONSULTATION DATE OF CONSULTATION: 04/15/2020 CHIEF COMPLAINT: Shortness of breath. HISTORY OF PRESENT ILLNESS: Ms. Shah is a 59-year-old female with a past medical history of COPD, hypothyroidism, history of right upper lobe adenocarcinoma status post chemotherapy and radiation with a history of previous right sided empyema status post chest tube placement and drainage. She was recently hospitalized as well for increased shortness of breath and what she describes as gurgling and bubbling in her throat. At her previous admission about a week ago she was found to have a left pleural effusion which was drained by cardiothoracic surgery. Patients pleural fluid on the left did not show any evidence of malignant cells. The fluid studies were thought to show possible transudative effusion; however, she did have a lymphocytic predominance noted. The fluid cultures were negative. She was continued on Levaquin for her previous resolving empyema on the right and continued with a prednisone taper. Patient reports after her discharge home she started having complaints again of shortness of breath as well as the episodes of bubbling and gurgling. She denied having any mucus production and states after an episode of coughing where she was unable to expectorate any mucus she felt significantly more short of breath and so had come to the ED as she was unable to catch her breath afterwards. She had not had any fevers or chills at home and as stated denied increased mucus production. She denied noticing any significant wheezing as well. She does have an albuterol nebulizer at home as well hypertonic saline which she states she uses occasionally as well as an acapella device. Despite using her nebulizer treatments and acapella device she states she is unable to mobilize her secretions. She previously had taken Mucinex in the past as well to help with mucus clearance although she states she had an issue about a year ago where she felt that she may have aspirated the pill and it was lodged in her throat. She states it was lodged there for about 6 months before she was able to cough it up and she thought after doing so this would have helped with her episodes of gurgling at times and the sensation of mucus and phlegm in the back of her throat; however, she states these sensations have continued to persist. She was having difficulty with coughing after eating at times; however, she states this has resolved and she denies any symptoms of coughing or aspiration with eating. Patient denies noticing any increased lower extremity edema. She did have some ankle edema she states when she was first discharged home, but has not noticed any worsening edema. She had previously been on a maintenance inhaler with Advair which she states did help with her breathing symptoms; however, the insurance had changed her Advair to the generic form which she did not find as effective and so had self discontinued her inhaler and has only been using her rescue bronchodilators. Initially in the ED patient was noted to have acute hypercarbic respiratory failure. She was placed on BiPAP with improvement very quickly on her repeat ABG. She was also given Lasix I.V. and Solu-Medrol as well as broad spectrum antibiotics and she has noticed improvement in her breathing she states as well as in the gurgling sound. She does feel the steroids help with her breathing the most when she receives them. She also reports a history of chronic nasal congestion symptoms and post nasal drip. She was on Flonase chronically for her symptoms and had felt the Flonase not being as effective. She was on azelastine nasal spray as well in the past which she did find effective; however, she had run out of the prescription and then could not remember the name of for refills. PAST MEDICAL/SURGICAL HISTORY: 1. COPD not on chronic oxygen supplementation. 2. History of recurrent tonsillitis. 3. History of nasal congestion and post nasal drip. 4. Adenocarcinoma of the right upper lobe diagnosed in 2017 status post chemotherapy and radiation as well as immunotherapy with a history of radiation serositis earlier this year. 5. History of right lung empyema status post drainage. 6. History of pericardiocentesis for chronic pericardial effusion. 7. History of a left pleural effusion with drainage recently. 8. Right shoulder surgery. 9. section. HOME MEDICATIONS: * Ferrous sulfate. * Levaquin. * Synthroid. * Prednisone taper. * Albuterol nebulized p.r.n. * Hypertonic saline nebulized p.r.n. ALLERGIES: No known drug allergies. SOCIAL HISTORY: Former smoker of 1 pack a day for 20 years quit in 2006. Occasional alcohol use. Denies illicit drug use. FAMILY HISTORY: Reviewed. No pertinent family history. PHYSICAL EXAMINATION: Vitals: Temperature 97.4, pulse 93, respirations 24, blood pressure 126/70, O2 sat 100% on 40% FiO2 on BiPAP, on room air patient is sating 97% off of BiPAP. Ins 170 mL/outs 1.9 liters/net is negative 1.7 mL. General: Patient is a thin female lying in bed, does not appear to be in any acute distress, is able to speak in complete sentences and is not using any accessory muscles for respiration. HEENT: Normocephalic, atraumatic. Pupils are reactive to light bilaterally. There is moist mucous membranes noted. Neck: Supple, trachea is midline, no palpable cervical adenopathy. Cardiovascular: Regular rate and rhythm, normal S1 and S2, no murmurs clearly appreciated. Pulmonary: There is diminished breath sounds on the right with rare inspiratory squeak. There is coarse breath sounds on the left with mild crackles at the bases, but no significant wheezing or rhonchi. Abdomen: Soft, nontender, nondistended, no palpable hepatomegaly. Extremities: There is no significant lower extremity edema bilaterally. LABORATORY DATA: WBC 21.8, hemoglobin 13, platelets 550. Chemistries: Sodium 136, potassium 5.2, chloride 104, bicarb 28, BUN 26, creatinine 0.85, glucose 151. Lactic acid initially was 5, repeat was 3.2. LFTs were within normal limits. BNP was 2264 increased from previous which was 1387. IMAGING DATA: CT angio on admission showed no evidence of pulmonary embolism. There is a right hydropneumothorax noted which is unchanged. There is right upper lobe collapse and some consolidation in the right lower lobe which is unchanged compared to previous. There is some evidence of radiation changes in the right lung. On the left there is a small to moderate pleural effusion with atelectasis in the left lower lobe. Compared to a previous CT there has been some improvement in the consolidation in the left lower lobe. ASSESSMENT AND PLAN: Ms. Shah is a 59-year-old female with a history of COPD, hypothyroidism, previous diagnosis of right upper lobe adenocarcinoma stage 3 status post chemotherapy, radiation and immunotherapy with complication of radiation pneumonitis. Patient also has a recent history of a right sided empyema which was drained and she has been continued on Levaquin for antibiotic for her resolving empyema. She also has a recent admission for shortness of breath with a left sided pleural effusion which was also drained by cardiothoracic surgery at her last admission. The fluid studies on the left effusion were negative for malignancy and thought to be transudative although there was a lymphocytic predominance. Patient presents again with similar complaints of shortness of breath as well as a gurgling sensation and mucus in the back of her throat. She states she is unable to expectorate any mucus despite coughing and using her nebulizer treatments and acapella device for pulmonary toilet. She had previously been on Mucomyst with her prior admission which did help with her pulmonary toilet. In the ED she was noted to have acute hypercarbic respiratory failure which did improve with BiPAP placement as well as a steroid and diuresis. Acute hypercarbic respiratory failure and hypoxic respiratory failure: Repeat imaging on this admission did show re-accumulation of the left pleural effusion with some associated atelectasis. Her right sided hydropneumothorax and opacities are unchanged from previous. She denies any fevers or chills and while she does have a white count it is unclear if some of this is reactive and she also had been on steroids during her previous admission and discharged on a prednisone taper. Patient did have increased BNP on this admission and suspect her dyspnea is in the setting of pulmonary edema and pleural effusion as well as a possible COPD exacerbation. Her hypercarbic respiratory failure is also likely in the setting of fluid as well as from possible COPD. She has not been compliant with her maintenance inhalers as an outpatient. Patient did have an echocardiogram done during her previous admission in the beginning of March which had shown low normal LV systolic function with trace pericardial effusion and no evidence of tamponade. There was also evidence of grade 2 diastolic dysfunction and mild aortic regurgitation and mild mitral regurgitation. Patient was given 40 mg I.V. Lasix with very good response. She was also given Solu-Medrol and does report symptomatic improvement in her breathing as well as in the gurgling that she was noticing before. Her ABG this morning also shows improvement with the BiPAP and she was taken off and has been sating well on room air and in no distress. Would continue patient off of BiPAP. We will discontinue and continue monitoring her oxygenation and give nasal cannula oxygen if needed to maintain an O2 sat above 90%. We will continue with Lasix for diuresis, but we will decrease from the q8h as ordered to q24h with monitoring of her ins and outs. We will also monitor her repeat BMP to monitor renal function and electrolytes while getting diuresed. We will continue with Solu-Medrol. We will decrease to 40 mg q8h and continue with nebulized bronchodilators. We will also start patient on acapella device for pulmonary toilet as she does have a history of bronchiectasis and mucus plugging in the past. We will also start patient on maintenance ICS/LABA inhaler with Symbicort during this admission for education purposes and to see if she is tolerating the Symbicort and notices improvement with it. Patient is on broad spectrum antibiotics with Zosyn. Her imaging does not appear to show any worsening opacities or infiltrates to suggest worsening pneumonia. She does have a previous history of empyema, but denies any fevers or chills and no significant pain on that right side except where she had some radiation skin changes. 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 DVT prophylaxis: Heparin. CODE STATUS: Full Code. MTDD
[2020-04-16 08:00] VITALS: BP 121/59
[2020-04-16] MEDS: FERROUS SULFATE 325MG TAB PO SCH ×2 (08:16→20:38)
[2020-04-16] MEDS: HEPARIN SOD (PORCINE) 5000UNITS/ML 1ML VIAL/SYRINGE SC SCH ×2 (08:16→20:38)
[2020-04-16] MEDS ORDERED: POTASSIUM CHLORIDE 10 MEQ SR TABLET PO ONE (09:00)
[2020-04-16] MEDS: predniSONE 20 MG TAB PO SCH ×2 (10:16→20:38)
--- NOTE | 2020-04-16 11:46 | IPNPDOC ---
Text Note Date of Service The patient was seen on 04/16/20. NOTE Subjective: Patient seen at bedside on 04/16/2020. She states doing well overnight without any events. She reports her shortness of breath is improving and denies having any chest pain, off, nausea, vomiting, diarrhea. Objective: General: Patient is awake alert oriented 3 sitting on bed with no acute distress. Head and neck: Clear conjunctiva pupils equal and reactive to light, no masses or nodules noted in the neck region. Cardiovascular: S1,S2, normal rhythm, no murmur, rubs or gallop. Respiratory: Diminished breath sounds on the right lung, breath sounds heard on the left side, with mild crackles. No rhonchi heard. Abdomen: Soft,nontender, positive bowel sounds. Extremities: No pedal edema, no tenderness, no clubbing or cyanosis WORK FROM HOME: Awake, alert and fully oriented. Cranials 3-12 grossly intact. Skin: No rashes, lesions, ulcerations or induration noted. Assessment: Ms. 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 During admission she was acidotic ABG pH of 7.2, CO2 15 and oxygen 76. And her WBC 21.8, lactic acid 5 potassium of 5.2 and BMI of 2200. CT of chest showed moderate left pleural effusion, right hydropneumothorax [unchanged to prior], mild consolidation of the right lower lobe [unchanged from prior]. Concerning for sepsis vs acute on chronic respiratory failure vs pleural effusion. concerning for acute hypercarbic respiratory failure vs pneumonia vs sepsis secondary to pneumonia vs pleural effusion. Plan: Sepsis: - Her white count today is 19, tachycardia. Discontinue Zosyn IV, as her pro-calcitonin was negative. We will start patient on Levaquin as she was on that for her empyema prior to admission. Her blood cultures were back with no negative growth after 24 hours. Acute on chronic respiratory failure: [Acute hypercarbic respiratory failure] Likely secondary to pleural effusion vs pneumonia vs CHF exacerbation Patient was saturating at 96% on room air. Pleural effusion of right lung: DC Zosyn [pro-calcitonin negative] will start her on Levaquin as she was on that medication prior to the admission for her empyema. Discontinued Lasix as her creatinine has mildly increased from yesterday. She doesn't have any pedal edema. COPD: Discontinue Solu-Medrol 40 MG and switch her to PO medications Will start patient on prednisone 40 MG twice a day. Continue her nebulizers. Hypothyroidism: Will continue Synthyroid 75 mcg by mouth. DVT prophylaxis: Heparin subcutaneous 5000 units Disposition: We will try to discharge her tomorrow, if her white count is improving. VS,Fishbone, I+O VS, Fishbone, I+O Laboratory Tests 04/15/20 14:10 04/16/20 05:29 Vital Signs Date Time Temp Pulse Resp B/P (MAP) Pulse Ox O2 Delivery O2 Flow Rate FiO2 04/16/20 08:00 96.7 94 16 121/59 (79) 96 Room Air 04/15/20 08:47 I&O- Last 24 Hours up to 6 AM 04/16/20 06:00 Intake Total 590 ml Output Total 1650 ml Balance -1060 ml GME ATTESTATION GME ATTESTATION My faculty preceptor for this patient encounter was physically present during the encounter and was fully available. All aspects of the patient interview, examination, medical decision making process, and medical care plan development were reviewed and approved by the faculty preceptor. The faculty preceptor is aware and concurs with the plan as stated in the body of this note and will atte st to such by his/her cosignature. ATTENDING NOTE I, Meño Collier, have independently examined this patient and performed my own physical exam, as well as reviewed the documentation and edited where necessary. I have discussed in detail with the resident / student the findings and plan of treatment as documented by the resident / student and edited their note. I agree with their findings and treatment plan and have edited their documentation. I will continue to follow the patient during this hospital stay. Major Mac MD Apr 16, 2020 11:46 MEÑO COLLIER MD Apr 16, 2020 13:32
[2020-04-16 12:00] VITALS: BP 135/64
[2020-04-16] MEDS ORDERED: HYDROmorphone 2 MG TAB PO PRN (13:00)
[2020-04-16] MEDS ORDERED: HYDROmorphone 2 MG TAB PO ONE (13:15)
--- NOTE | 2020-04-16 14:40 | IPN ---
DATE: 04/16/2020 HISTORY OF PRESENT ILLNESS: Patient was seen and examined this morning during bedside rounds. Patient states her breathing has improved. Her gurgling and mucus sensation has also improved. She was transitioned from Solu-Medrol to prednisone this morning. She does feel that the 40 mg of prednisone is usually not enough she states when she receives it. She does find the Solu-Medrol more effective. She did receive Lasix IV yesterday and has had very significant diuresis. She has not had any fevers or chills and denies any chest pain. She does have some right shoulder pain and received morphine which she states did not help with her pain and caused her to feel groggy and cranky. She states usually the Dilaudid p.o. which she has received in the past is the only medications for pain that will help her symptoms. She also was started on Symbicort for an inhaler which she finds has helped with her breathing. She does feel it is more effective than the previous generic Advair that she was on. PHYSICAL EXAMINATION: Vitals: Temperature 98.7, pulse 90, respirations 20, blood pressure 137/75, O2 sat 94% on room air, in 640 mL, out 3.3 liters, net negative 2.6 liters. General: Patient is a thin female sitting in bed. Does not appear to be in any acute distress. Is able to speak in complete sentences and is not using any accessory muscles for respiration. HEENT: Normocephalic/atraumatic. Pupils reactive to light bilaterally. There is moist mucous membranes noted. Neck is supple. Trachea is midline. No palpable cervical adenopathy. Cardiovascular: Regular rate and rhythm. Normal S1 and S2. No murmurs clearly appreciated. Pulmonary: There is diminished breath sounds on the right with coarse breath sounds on the left with occasional rhonchi at the bases. No wheezing noted. Abdomen: Soft, nontender, nondistended. No palpable hepatomegaly. Extremities: There is no significant lower extremity edema bilaterally. LABORATORY DATA: WBC 19.0, hemoglobin 12.1, platelets 382. Chemistry: Sodium 138, potassium 3.3, chloride 97, bicarb 32, BUN 29, creatinine 1.05, glucose 128. Lactic acid trending down to 3.2. Magnesium is 2.6. Procalcitonin was 0.02. ASSESSMENT AND PLAN: The patient is a 59-year-old female with a history of COPD, hypothyroidism, a previous diagnosis of right upper lobe adenocarcinoma stage 3 status post chemotherapy, radiation, and immunotherapy with a complication of radiation pneumonitis. Patient also has a recent history of right-sided empyema which is status post chest tube drainage, and she had been continued on Levaquin for antibiotic for her resolving empyema. She also has a recent admission about a week ago for increased shortness of breath and gurgling with a left-sided pleural effusion which had been drained previously with fluid studies negative for malignancy and thought to be transudative, although there was a lymphocytic predominance. Patient presents with similar symptoms again with shortness of breath as well as gurgling and mucus in the back of her throat. She does have reaccumulation of a small left pleural effusion noted on imaging. Patient also had acute hypoxic and hypercarbic respiratory failure in the ED and was on Bi- PAP with improvement in her acidosis. She was also given Lasix for diuresis and Solu-Medrol with improvement in her breathing and with the mucus and gurgling sensation. Acute hypercarbic and hypoxemic respiratory failure improved. She is on room air now and saturating well. She has remained off of Bi-PAP. - Patient's repeat CT scan on this admission showed some reaccumulation of left pleural effusion with associated atelectasis and the right-sided hydropneumothorax and opacities which are unchanged from previous. She did have some leukocytosis although has been afebrile and denied having any fevers or chills at home. - She was brought in on antibiotics to Zosyn. However, her imaging did not appear to show any worsening opacities or infiltrates to suggest worsening pneumonia. Her procalcitonin is normal and so would consider deescalation of the Zosyn to Levaquin that she has previously been on for what appears to be a prolonged course due to her prior history of empyema. - Patient did have increased BNP on this admission and did have reaccumulation of a small left pleural effusion. She was given Lasix with very adequate diuresis and appears to be euvolemic at this time. Would discontinue Lasix IV and would continue to monitor patient as an outpatient for need for potential diuretics. Her last echocardiogram from earlier in March had shown a low normal EF and grade 2 diastolic dysfunction. There was minimal valvular pathology with mild tricuspid regurgitation and mild mitral regurgitation. She may benefit from a low dose diuretic as an outpatient but would follow up with her primary care provider about this further. - Patient was transitioned from Solu-Medrol to prednisone for her acute COPD exacerbation. Will continue with prednisone 40 mg p.o. b.i.d. with a prolonged taper and continues with her nebulized bronchodilators as well as Acapella device for pulmonary toilet. - Will continue with Symbicort for maintenance inhaler two puffs twice a day and would discharge patient with the Symbicort. Would also discharge her with azelastine nasal spray to help with her symptoms of postnasal drip which she states does contribute to her mucus and gurgling at times. - Patient is complaining of right shoulder pain not improved with the morphine. She states she does not notice improvement with morphine or Percocet, and the only pain medication that seems to help without significant side effects is Dilaudid. Would give her p.o. Dilaudid as needed for her pain. DVT prophylaxis: Heparin. Code status: Full code. Patient has follow up with her business services tech, Dr. Zepeda, already scheduled for the end of this month. Would keep her follow up. Please do not hesitate to call with any further questions or concerns. MTDD
[2020-04-16 16:00] VITALS: BP 117/60
[2020-04-16 20:00] VITALS: BP 118/72
[2020-04-17] VITALS: BP 120/72
[2020-04-17 04:00] VITALS: BP 118/66
[2020-04-17] MEDS: LEVOTHYROXINE 75MCG TABLET (0.075MG) PO SCH (06:13)
[2020-04-17 07:29] LABS: HEMATOCRIT 35.3 % (36.0-47.0); HEMOGLOBIN 10.6 g/dl (12.0-15.5); MEAN CORPUSCULAR HEMOGLOBIN 25.4 pg (27.0-33.0); MEAN CORPUSCULAR VOLUME 84.7 fl (80.0-96.0); RED BLOOD COUNT 4.17 10^6/uL (4.00-5.40); WHITE BLOOD COUNT 17.6 10^3/uL (4.0-10.0)
[2020-04-17] MEDS: SYMBICORT 160/4.5MCG INHALER 6GM INH SCH (07:37)
[2020-04-17 07:58] LABS: BLOOD UREA NITROGEN 29 MG/DL (7-18); CALCIUM LEVEL 8.4 MG/DL (8.5-10.1); CARBON DIOXIDE LEVEL 29 MEQ/L (21-32); CHLORIDE LEVEL 103 MEQ/L (98-107); CREATININE FOR GFR 0.64 MG/DL (0.55-1.30); GLOMERULAR FILTRATION RATE > 60.0 (>51); GLUCOSE, FASTING 107 MG/DL (70-100); MAGNESIUM LEVEL 2.5 MG/DL (1.8-2.4); POTASSIUM SERUM 4.4 MEQ/L (3.5-5.1); SODIUM LEVEL 140 MEQ/L (136-145)
[2020-04-17 08:00] VITALS: BP 128/62
[2020-04-17] MEDS: predniSONE 20 MG TAB PO SCH (08:05)
[2020-04-17] MEDS: FERROUS SULFATE 325MG TAB PO SCH (08:07)
[2020-04-17] MEDS: HEPARIN SOD (PORCINE) 5000UNITS/ML 1ML VIAL/SYRINGE SC SCH (08:07)
[2020-04-17] MEDS ORDERED: PRED10TA2 PO ×2 (11:06→11:08)
[2020-04-17] MEDS ORDERED: BUDE10.2 IH (12:46)
[2020-04-17] MEDS ORDERED: FLON1SPR NARES (12:48)
--- NOTE | 2020-04-17 17:31 | DS.PDOC ---
Discharge Summary General Date of Admission Apr 15, 2020 at 02:49 Date of Discharge Apr 17, 2020. Attending Physician: MEÑO COATES MD Specialist/Consultants Involve: DARIO VALDIVIA MD Discharge Summary PROCEDURES PERFORMED DURING STAY: None. ADMITTING DIAGNOSES: 1. Sepsis 2. Acute on chronic respiratory failure with hypoxia 3. Right lung empyema status post drainage 4. Adenocarcinoma of the right upper lobe status post chemotherapy/radiation therapy/immunotherapy 5. Radiation serositis of lung 6. Hypothyroidism 7. COPD DISCHARGE DIAGNOSES: 1. Right lung empyema status post drainage. 2. Adenocarcinoma of right upper lobe S/P chemo/radiation/immunotherapy 3. Radiation serositis of lung 4. Hypothyroidism 5. COPD COMPLICATIONS/CHIEF COMPLAINT: Sepsis, Acute On Chronic Resp Failure With Hypoxia. HISTORY OF PRESENT ILLNESS: A shunt is an 59-year-old female who presented to the emergency department with increased shortness of breath since one day after recent hospitalization. She developed sudden severe shortness of breath. In the emergency department patient was found to have an ABG of pH 7.2, CO2 of 50 and oxygen of 76. WBC 21.8, lactic acid 5, potassium of 5.2 BNP of 2200. HOSPITAL COURSE: She was admitted to the ICU. She was started on broad-spectrum antibiotics for leukocytosis tachycardia and dyspnea initially until her blood cultures were negative and continued her on Levaquin. She was saturating well and was moved to PCU. During the admission she did get Solu-Medrol 40 mg and Symbicort for her COPD which upon discharge was switched to by mouth prednisone 40 MG twice daily with tapping scheduled. During her hospitalization her white count gradually improved and her breathing gradually got better. Patient clinically did better and was transitioned to oral medications. Patient was ultimately discharged home on 04/17/2020 with instructions to follow up with her primary care provider and maintenance construction helper within the next 7 days. DISCHARGE MEDICATIONS: Please see below. ALLERGIES: Please see below. PHYSICAL EXAMINATION ON DISCHARGE: VITAL SIGNS: Please see below. General: Patient is awake alert oriented 3 sitting on bed with no acute distress. Head and neck: Clear conjunctiva pupils equal and reactive to light, no masses or nodules noted in the neck region. Cardiovascular: S1,S2, normal rhythm, no murmur, rubs or gallop. Respiratory: Diminished breath sounds on the right lung, breath sounds heard on the left side, which is her baseline No rhonchi heard. Abdomen: Soft,nontender, positive bowel sounds. Extremities: No pedal edema, no tenderness, no clubbing or cyanosis GENERAL DENTIST: Awake, alert and fully oriented. Cranials 3-12 grossly intact. Skin: No rashes, lesions, ulcerations or induration noted. LABORATORY DATA: Please see below. IMAGING: Portable chest x-ray 04/14/2020: Reported as 1) large right paratracheal mass encasing the right bronchus. 2)Large right pleural effusion much of which is loculated. 3)Moderate left pleural effusion has increased. Extensive pneumonic infiltrates left lung base. CT angiography: 04/14/2020: Reported as 1) negative for pulmonary embolism. 2) right [place] pneumothorax unchanged from prior 3) mild consolidation in the right lower lobe unchanged from prior 4) right upper lobe is dense and collapsed unchanged from prior, correlates with cancer history 5) right middle lobe is not well seen. Cautioned right middle lobectomy.6) compression atelectasis of the left lower lobe. Atelectasis is new. However other consolidations have resolved. 7) moderate left pleural effusion Increased from prior PROGNOSIS: Good ACTIVITY: As tolerated. DIET: As tolerated DISCHARGE PLAN: follow-up appointment with PCP in 3-5 days DISPOSITION: 01 Home, Self-Care. DISCHARGE INSTRUCTIONS: 1. Follow up with your PCP in 3-5 days 2. Follow-up with maintenance construction helper Dr. Zepeda. 3. Follow the medication instructions as directed for the steroid taper. ITEMS TO FOLLOWUP ON ON OUTPATIENT: 1. Follow-up with PCP with in 3-5 days. 2. Follow-up with Dr. Zepeda maintenance construction helper for further management of COPD all DISCHARGE CONDITION: Stable. TIME SPENT ON DISCHARGE: 30 minutes. Vital Signs/I&Os Vital Signs Date Time Temp Pulse Resp B/P (MAP) Pulse Ox O2 Delivery O2 Flow Rate FiO2 04/17/20 08:37 18 Room Air 04/17/20 08:07 98 04/17/20 08:00 97.7 86 128/62 (84) 04/15/20 08:47 I&O- Last 24 Hours up to 6 AM 04/17/20 06:00 Intake Total 720 ml Output Total 300 ml Balance 420 ml Laboratory Data Labs 24H Laboratory Tests 2 04/17/20 07:20: Nucleated Red Blood Cells % (auto) 0.0, Anion Gap 8, Glomerular Filtration Rate > 60.0, Calcium Level 8.4L, Magnesium Level 2.5H 04/17/20 07:48: Lab Scanned Report Miscellaneous Lab CBC/BMP Laboratory Tests 04/17/20 07:20 Microbiology Microbiology 04/14/20 Blood Culture - Preliminary, Resulted No Growth after 48 hours. All Specime... 04/14/20 Blood Culture - Preliminary, Resulted No Growth after 48 hours. All Specime... Discharge Medications Scheduled Budesonide/Formoterol Fumarate (Budesonide-Formoterol 160-4.5) 10.2 Gm Hfa.aer .ad, 10.2 GM IH BID Ferrous Sulfate (Ferrous Sulfate) 325 Mg Tablet.dr, 325 MG PO BID, (Reported) Fluticasone Propionate (Flonase Allergy Relief) 9.[address]susp, 2 SPRAY NARES DAILY Levofloxacin (Levofloxacin) 750 Mg Tablet, 750 MG PO DAILY, (Reported) STARTING 04/04/2020 Levothyroxine Sodium (Synthroid) 75 Mcg Tablet, 75 MCG PO DAILY, (Reported) Prednisone (Prednisone) 10 Mg Tablet, 10 MG PO TAPER TAKES 40MG BID FOR 4 DAYS, THEN TAKES 40MG DAILY FOR 7 DAYS, THEN TAKES 20MG DAILY FOR 7 DAYS THEN TAKES 10MG DAILY FOR 7 DAYS. Scheduled PRN Albuterol Sulfate (Albuterol Sulfate) 1.25 Mg/3 Ml Vial.neb, 1.25 MG INH Q4H PRN for SHORTNESS OF BREATH, (Reported) Allergies Coded Allergies: No Known Allergies (Unverified , 08/07/18) GME ATTESTATION GME ATTESTATION My faculty preceptor for this patient encounter was physically present during the encounter and was fully available. All aspects of the patient interview, examination, medical decision making process, and medical care plan development were reviewed and approved by the faculty preceptor. The faculty preceptor is aware and concurs with the plan as stated in the body of this note and will attest to such by his/her cosignature. ATTENDING NOTE I, Meño Coates, have independently examined this patient and performed my own physical exam, as well as reviewed the documentation and edited where necessary. I have discussed in detail with the resident / student the findings and plan of treatment as documented by the resident / student and edited their note. I agree with their findings and treatment plan and have edited their documentation. I will continue to follow the patient during this hospital stay. Time spent on discharge 35 minutes Major Mac MD Apr 17, 2020 17:31 MEÑO COATES MD Apr 18, 2020 07:52
[2020-04-18] MEDS ORDERED: AZEL1SPR3 NARES (10:13)
== END 2020-04-17 13:01 | disposition home or self-care (01) | DRG 720 ==
LOC: M ED 22:38 → M ED INP 04-15 02:49 → ENRESERV 04-15 03:08 → M ICU 04-15 03:45 → M PCU 04-15 11:26
PROVIDERS: ADMIT Internal Medicine; ATTEND Internal Medicine
DX: A41.9 Sepsis, unspecified organism (principal); I31.1 Chronic constrictive pericarditis; J96.21 Acute and chronic respiratory failure with hypoxia; J90 Pleural effusion, not elsewhere classified; J96.22 Acute and chronic respiratory failure with hypercapnia; C34.11 Malignant neoplasm of upper lobe, right bronchus or lung; J44.9 Chronic obstructive pulmonary disease, unspecified; E03.9 Hypothyroidism, unspecified; Z79.82 Long term (current) use of aspirin; Z79.899 Other long term (current) drug therapy; Z92.3 Personal history of irradiation; Z92.21 Personal history of antineoplastic chemotherapy; Z87.891 Personal history of nicotine dependence

== ENCOUNTER → 2020-04-24 | Outpatient (CLI) | payer OTHER ==
[~2020-04-24] MED LIST changes: +ALBU1.25 INH; +AZEL1SPR3 NARES; +BUDE10.2 IH; +FLON1SPR NARES
--- NOTE | 2020-04-24 17:36 | REPPI ---
INDICATION: BRONCHIECTASIS, PLEURAL EFFUUSION, PERICARDIAL EFFUSION COMPARISON: 04/14/2020 TECHNIQUE: PA and lateral. FINDINGS: There appears to be a large partially loculated right pleural effusion with air-fluid levels and underlying parenchymal opacities. Findings are relatively unchanged. The left hemithorax demonstrates improved aeration with near complete resolution to the previously noted left effusion and basilar opacities. Mediastinal shift towards the right hemithorax is again noted and visualized portions of the cardiac silhouette appear normal. The skeletal structures are intact. IMPRESSION: 1. Moderate to large partially loculated right-sided hydropneumothorax with air-fluid level and underlying parenchymal changes remains stable. 2. Left hemithorax demonstrates significant improvement with near complete resolution to the left effusion and left basilar opacities from 04/14/2020. <Electronically signed by Trevor Marshall > 04/24/20 0130
== END ==
LOC: M PLAIMG 10:44
PROVIDERS: ATTEND Thoracic Surgery (Cardiothoracic Vascular Surgery)
DX: J94.8 Other specified pleural conditions (principal); J47.9 Bronchiectasis, uncomplicated; J90 Pleural effusion, not elsewhere classified; I31.3 Pericardial effusion (noninflammatory); C34.11 Malignant neoplasm of upper lobe, right bronchus or lung

== ENCOUNTER → 2020-05-01 | Outpatient (CLI) | payer OTHER | LOC: M LABSMTC 13:17 | PROVIDERS: ATTEND Anesthesiology | DX: Z01.812 Encounter for preprocedural laboratory examination (principal); Z20.828 Contact with and (suspected) exposure to other viral communicable diseases | CPT/HCPCS: C9803; U0003 ==

== ENCOUNTER 2020-05-06 11:13 | Day surgery (SDC) | payer OTHER ==
[~2020-05-06] VITALS: Ht 149.9 cm; Wt 39.4 kg
[~2020-05-06 11:13] MED LIST changes: +LIDOCAINE 1% MDV 20ML VIAL SQ PRN; +LR 1,000 ML IV ONE
[2020-05-06] MEDS ORDERED: THROMBIN SOLN 20,000 UNITS KIT As Ordered ONE (11:22)
[2020-05-06] MEDS ORDERED: EPINEPHrine 1MG/10ML SYRINGE 1.5IN As Ordered ONE (11:23)
[2020-05-06] MEDS ORDERED: LIDOCAINE 4% TOPICAL SOLN 50 ML BTL As Ordered ONE (11:23)
[2020-05-06] MEDS ORDERED: LIDOCAINE VISCOUS 2% SOLN 15ML UDC As Ordered ONE (11:23)
[2020-05-06] MEDS ORDERED: LIDOCAINE 1% SDV 30ML VIAL As Ordered ONE (11:23)
[2020-05-06] MEDS ORDERED: CETACAINE SPRAY 5GM As Ordered ONE (11:23)
[2020-05-06] MEDS ORDERED: ALBUTEROL SULFATE 2.5 MG/0.5 ML INH NEB SOLN INH ONE (12:15)
[2020-05-06] MEDS ORDERED: LIDOCAINE 4% INJ 5ML AMP INH ONE (12:15)
[2020-05-06] MEDS ORDERED: dexameTHASONE 4 MG/ML 1ML VIAL (J1100 PER 1MG) As Ordered ONE (12:41)
[2020-05-06] MEDS ORDERED: ONDANSETRON 4MG/2ML VIAL As Ordered ONE (12:41)
[2020-05-06] MEDS ORDERED: LIDOCAINE 2% 100MG/5ML SDV (FOR ANES.) As Ordered ONE (12:41)
[2020-05-06] MEDS ORDERED: propofoL 200 MG/20 ML VIAL As Ordered ONE (12:41)
[2020-05-06] MEDS ORDERED: fentaNYL 100 MCG/2 ML INJECTION (J3010) As Ordered ONE (12:41)
[2020-05-06] MEDS ORDERED: ROCURONIUM BROMIDE 50 MG/5 ML VIAL As Ordered ONE (12:41)
[2020-05-06] MEDS ORDERED: MIDAZOLAM INJ 2MG/2ML VIAL (J2250 PER 1MG) As Ordered ONE (12:41)
[2020-05-06] MEDS ORDERED: PHENYLephrine HCL 500 MCG/5 ML (100MCG/ML) SYRINGE (J2370) As Ordered ONE ×2 (12:44→12:46)
--- NOTE | 2020-05-06 13:30 | REP ---
INDICATION: POST OP IN PACU/ BRONCHOSCOPY. COMPARISON: Comparison study April 14, 2020.. TECHNIQUE: Sitting AP portable exam. Single-view. FINDINGS: There is extensive volume loss in right hemithorax with elevation of the right hemidiaphragm and pleural opacity occupying the right lung apex. There is a soft tissue fullness in the right perihilar region with air bronchograms again noted essentially unchanged. Very slight blunting of the left lateral pleural angle is seen. The left lung shows no evidence of infiltrate. IMPRESSION: Pleuroparenchymal changes with volume loss right hemithorax essentially unchanged. There is no evidence of pneumothorax. Slight blunting of the left lateral pleural angle. <Electronically signed by Segun Quijano > 05/06/20 [id number]
[2020-05-06] MEDS ORDERED: ONDANSETRON 4MG/2ML VIAL IV PRN (13:45)
[2020-05-06] MEDS ORDERED: PERCOCET 5MG/325MG TAB PO PRN (13:45)
[2020-05-06] MEDS ORDERED: METOCLOPRAMIDE INJ 10MG/2ML VIAL (J2765 PER 1) IV PRN (13:45)
[2020-05-06] MEDS ORDERED: LR 1,000 ML IV SCH (13:45)
[2020-05-06] MEDS ORDERED: fentaNYL 100 MCG/2 ML INJECTION (J3010) IV PRN (13:45)
[2020-05-06 14:05] VITALS: BP 132/70
--- NOTE | 2020-05-07 07:13 | RO ---
DATE OF OPERATION: 05/06/2020 PREOPERATIVE DIAGNOSIS: Abnormal chest CT, history of right upper lobe malignancy and right-sided empyema. POSTOPERATIVE DIAGNOSIS: Abnormal chest CT, history of right upper lobe malignancy and right-sided empyema. FINDINGS: A walled-off right upper lobe, right middle and right lower lobe along with bronchus intermedius very tortuous and there are significant radiation changes on the right. PROCEDURE: Bronchoscopy procedure. PROCEDURIST: Edmund Zepeda DO SENIOR PRODUCTION PLANNER: MARTIN Tucker SPECIMENS OBTAINED: None. EBL: No observed blood loss. COMPLICATIONS: No observed complications at this point in time. Post-procedure chest x-ray is pending. ANESTHESIA: General. Please refer to their records for details. DESCRIPTION OF PROCEDURE: After informed consent was reviewed with the patient in the preoperative area, she was brought back to the OR #7. A time-out was performed A time-out was performed with two-patient identifiers identifying correct site, correct position. The patient was then intubated. Case was handed over to me. Again, a time-out was performed with two-patient identifiers identifying correct site, correct procedure. The 5RE100 was inserted into the airway. The trachea was deviated slightly to the left. Marcelina was sharp. Significantly abnormal right mainstem bronchus started to show radiation changes. The spur between the right upper lobe and the right lower lobe was somewhat splayed. The right upper lobe had no open airways, simply a pale solid mucosa, very difficult to actually visualize. I had to switch to an 1H190 scope to even see the right upper lobe because of the tortuosity. A picture was taken. There were no endobronchial lesions, nothing that appeared concerning for malignancy. I did attempt to put out the forceps biopsies. However, with how retroflexed the scope was, forceps biopsies were not able to exit the scope in order to sample. The right middle lobe and lower lobe showed significant bronchiectatic changes. There were no endobronchial lesions. Bronchoscope was then inserted into the left airway. LB1-10 was normal without endobronchial lesions. No significant abnormalities. Bronchoscope was then removed. Case was ended and handed over to anesthesia. The patient is extubated. Post-procedure chest x-ray is pending. addendum: No evidence of new pneumothorax on post procedure film, persistent right trapped lung with hydropneumothorax is present MTDD
== END 2020-05-06 14:31 | disposition home or self-care (01) ==
LOC: M SDC 11:13
PROVIDERS: ATTEND Internal Medicine Pulmonary Disease
DX: R91.8 Other nonspecific abnormal finding of lung field (principal); J47.9 Bronchiectasis, uncomplicated; C34.11 Malignant neoplasm of upper lobe, right bronchus or lung; J90 Pleural effusion, not elsewhere classified; Z87.891 Personal history of nicotine dependence
CPT/HCPCS: 31622; 71045; J1100; J2250; J2370; J2405; J3010

== ENCOUNTER → 2020-05-26 | Outpatient (CLI) | payer OTHER ==
[~2020-05-26] MED LIST changes: -LIDOCAINE 1% MDV 20ML VIAL SQ PRN; -LR 1,000 ML IV ONE; +POTA8CAP10 PO
--- NOTE | 2020-05-26 20:42 | REP ---
INDICATION: SOB COMPARISON: 05/06/2020, 04/09/2020 TECHNIQUE: PA and lateral. FINDINGS: Pleuroparenchymal changes involving the right hemithorax include large hydropneumothorax and underlying areas of mass/consolidation and airspace disease with associated volume loss is relatively unchanged small left pleural effusion and left basilar airspace disease appears relatively new as compared to 05/06/2020. Mediastinum and cardiac silhouette are incompletely evaluated due to overlying opacities but the left cardiac border appears relatively normal and without obvious cardiomegaly. Skeletal structures are intact. IMPRESSION: Significant right-sided pleuroparenchymal changes are similar to prior examination although subtle acute right-sided process cannot be excluded Suspected new small left pleural effusion and left basilar opacity. <Electronically signed by Trevor Marshall > 05/26/202037
== END ==
LOC: M RAD 15:45
PROVIDERS: ATTEND Internal Medicine Medical Oncology
DX: R06.02 Shortness of breath (principal); J90 Pleural effusion, not elsewhere classified; J94.8 Other specified pleural conditions

== ENCOUNTER → 2020-07-11 | Outpatient (CLI) | payer OTHER ==
[~2020-07-11] MED LIST changes: +AMOX500C PO; +GASTROGRAFIN SOLUTION 30ML (Q9963) As Ordered ONE; +GUAISYP9 PO; +ISOVUE-370 76% 100ML VIAL As Ordered ONE
--- NOTE | 2020-07-13 09:14 | REP ---
INDICATION: LUNG CA FOLLOW UP COMPARISON: 04/14/2020 TECHNIQUE: Axial contrast enhanced images from the thoracic inlet to the upper abdomen with using 100 ml Isovue 370 intravenous contrast material followed by CT of the abdomen and pelvis. Coronal and sagittal reformations obtained.. This CT examination was performed using the following dose reduction techniques: Automated exposure control, adjustment of mA and/or kv according to the patient's size, and use of iterative reconstruction technique. FINDINGS: Right-sided volume loss with small to moderate pleural effusion and miniscule amount of pleural gas, right upper lobe consolidation with air bronchograms, and right perihilar/infrahilar stranding/atelectasis is again noted with decreased amount of right pleural gas as compared to prior examination and decreased right basilar atelectasis. Left hemithorax demonstrates stable small to moderate dependent pleural effusion with minimal passive atelectasis decreased from prior examination. No new pulmonary parenchymal process identified. Further evaluation of the mediastinum demonstrates stable appearance to the thoracic aorta, pulmonary vasculature, and heart/pericardium. No cardiomegaly or significant pericardial effusion. No thoracic aortic aneurysm or dissection. No obvious adenopathy. Surrounding musculoskeletal structures without acute osseous abnormality. Limited upper abdomen demonstrates normal stable bilateral adrenal glands IMPRESSION: 1. Right-sided pleuroparenchymal changes with associated volume loss are similar to prior examination but demonstrate decreased amount of pleural gas and decreased right basilar atelectasis as compared to prior examination. 2. Small to moderate left pleural effusion similar to prior examination, but with decreased left basilar atelectasis noted. 3. No new acute mediastinal or pleuroparenchymal process appreciated. <Electronically signed by Trevor Marshall > 07/13/20 [id number]
--- NOTE | 2020-07-13 09:19 | REP ---
INDICATION: LUNG CA FOLLOW UP. COMPARISON: 03/26/2020 TECHNIQUE: Axial contrast-enhanced images from the lung bases to the pubic symphysis using oral and 100 cc Isovue 370 intravenous contrast material. Delayed images of the abdomen along with coronal and sagittal reformations obtained. This CT examination was performed using the following dose reduction techniques: Automated exposure control, adjustment of mA and/or kv according to the patient's size, and the use of iterative reconstruction technique. FINDINGS: Liver demonstrates subtle heterogeneity which may reflect underlying hepatocellular disease without focal hepatic lesion identified. Small transient hepatic attenuation defect along the anterior margin of the left lobe (series 205; image 34) is similar to 2018 and likely insignificant. No focal hepatic lesion identified. Spleen, pancreas, gallbladder, bilateral adrenal glands and kidneys are normal. The enteric system including stomach, small, and large bowel appears normal. No evidence for obstruction or acute inflammatory process. Normal terminal ileum and appendix are identified in the right lower quadrant. Scattered sigmoid diverticula noted without acute diverticulitis. Pelvis demonstrates normal bladder and age-appropriate uterus/adnexa. Stable 1.6 cm fat containing periumbilical hernia again noted and without stranding or acute findings. No ascites. No free air. No intraperitoneal or retroperitoneal adenopathy. Abdominal aorta and vasculature appear normal. Musculoskeletal structures are intact and without acute osseous abnormality. IMPRESSION: No acute abdominopelvic pathology appreciated. No evidence for metastatic disease, adenopathy, or ascites. <Electronically signed by Trevor Marshall > 07/13/20 0915
== END ==
LOC: M RAD 11:43
PROVIDERS: ATTEND Internal Medicine Medical Oncology
DX: J98.11 Atelectasis (principal); J90 Pleural effusion, not elsewhere classified; C34.90 Malignant neoplasm of unspecified part of unspecified bronchus or lung
CPT/HCPCS: 71260; 74177; Q9963; Q9967

== ENCOUNTER 2020-10-12 08:51 | Inpatient (IN) | payer OTHER ==
[~2020-10-12] VITALS: Ht 149.9 cm; Wt 44.1 kg
[2020-10-12] VITALS (24 sets, daily range): BP systolic 78–109; BP diastolic 47–59; O2SAT 95
[~2020-10-12 08:51] MED LIST changes: -GASTROGRAFIN SOLUTION 30ML (Q9963) As Ordered ONE; -ISOVUE-370 76% 100ML VIAL As Ordered ONE
[2020-10-12 09:31] LABS: VENOUS BASE EXCESS -5.2 (-2.0-2.0); VENOUS HCO3 20.8 MEQ/L (23.0-27.0); VENOUS O2 SATURATION 70.4 % (60.0-80.0); VENOUS PARTIAL PRESSURE CO2 41.8 mmHg (38.0-50.0); VENOUS PARTIAL PRESSURE O2 38.1 mmHg (30.0-50.0); VENOUS PH 7.314 UNITS (7.330-7.430); VENOUS STANDARD HCO3 19.7 MEQ/L
[2020-10-12 09:31] LABS: BASO % 0.4 % (0.0-1.0); EOS # 0.1 10^3/uL (0.0-0.5); HEMATOCRIT 43.2 % (36.0-47.0); HEMOGLOBIN 13.7 g/dl (12.0-15.5); LYMPH # 0.6 10^3/uL (1.5-5.0); LYMPH % 7.1 % (24.0-44.0); MEAN CORPUSCULAR HGB CONC 31.7 g/dl (32.0-36.5); MEAN CORPUSCULAR VOLUME 91.5 fl (80.0-96.0); MONO # 0.3 10^3/uL (0.0-0.8); MONO % 4.3 % (2.0-8.0); NEUTROPHILS # 6.7 10^3/uL (1.5-8.5); NEUTROPHILS % 86.8 % (36.0-66.0); PLATELET COUNT, AUTOMATED 245 10^3/uL (150-450); RED BLOOD COUNT 4.72 10^6/uL (4.00-5.40); WHITE BLOOD COUNT 7.8 10^3/uL (4.0-10.0)
[2020-10-12 09:41] LABS: INR 1.02; PROTHROMBIN TIME 13.6 SECONDS (12.5-14.3)
--- NOTE | 2020-10-12 09:46 | REP ---
INDICATION: DYSPNEA/COUGH. History of lung carcinoma. COMPARISON: Comparison chest x-ray 26 May [address] Comparison chest CT study 11 July 2020. TECHNIQUE: Portable upright AP chest radiograph. FINDINGS: There is a large right hilar and perihilar is soft tissue fullness consistent with patient's history of malignancy. The right lung is largely opacified and there is volume loss the right hemithorax. Pleural opacity is seen in the right base as well. There is blunting of the left lateral pleural angle. These findings on the right are somewhat more pronounced than on the 26 May 2020 prior study although not new. Pleural angle blunting on the left is unchanged. No new infiltrate is seen.. IMPRESSION: There is some progressive volume loss in right hemithorax with fullness in the right hilar region. Blunting of the left lateral pleural angle is again noted unchanged.. <Electronically signed by Segun Quijano > 10/12/20 0942
[2020-10-12] MEDS ORDERED: cefTRIAXone SOD 2 GM in D5W MINI-BAG PLUS 50 ML IV ONE (09:55)
[2020-10-12] MEDS ORDERED: NS IV ONE (09:55)
[2020-10-12 10:05] LABS: ALBUMIN 3.5 GM/DL (3.2-5.2); ALT/SGPT 25 U/L (12-78); BILIRUBIN,DIRECT 0.1 MG/DL (0.0-0.2); BILIRUBIN,TOTAL 0.3 MG/DL (0.2-1.0); BLOOD UREA NITROGEN 9 MG/DL (7-18); CARBON DIOXIDE LEVEL 24 MEQ/L (21-32); CHLORIDE LEVEL 105 MEQ/L (98-107); CK-MB VALUE MASS < 1.0 NG/ML (<3.6); CPK CREATINE PHOSPHOKINASE 46 U/L (26-192); CREATININE FOR GFR 0.73 MG/DL (0.55-1.30); GLOMERULAR FILTRATION RATE > 60.0 (>51); GLUCOSE, FASTING 135 MG/DL (70-100); MB/CK RELATIVE INDEX 2.17 (< OR =4); NT-PRO BNP 689 PG/ML (<125); SODIUM LEVEL 138 MEQ/L (136-145); THYROXINE (T4) 14.3 UG/DL (4.5-12.0); TOTAL PROTEIN 7.9 GM/DL (6.4-8.2); TROPONIN I < 0.02 NG/ML (< 0.10)
[2020-10-12] MEDS ORDERED: ISOVUE-370 76% 100ML VIAL As Ordered ONE (10:29)
[2020-10-12] MEDS ORDERED: BUDE10.2 INH (10:42)
[2020-10-12] MEDS ORDERED: ONDANSETRON 4MG/2ML VIAL IV ONE (11:25)
[2020-10-12] MEDS ORDERED: KETOROLAC 30 MG/ML 1ML VIAL IV ONE (11:25)
[2020-10-12] MEDS ORDERED: ACETAMINOPHEN TAB 650MG DOSE (2X325MG) PO ONE (11:25)
--- NOTE | 2020-10-12 11:40 | REP ---
INDICATION: chest pain. COMPARISON: Comparison CT pulmonary angiogram April 14, 2020.. TECHNIQUE: Contrast dose: 75 ML of Isovue [address] technique: Helical scanning is acquired and overlapping 1.5 mm and contiguous 3 mm axial images are reformatted. In addition, maximum intensity projection and multiplanar re-formation images are generated in sagittal and coronal imaging projections. Patient was unable to raise her arms out of the scanned field for today's exam. FINDINGS: There is good opacification in the pulmonary arterial tree. There is no evidence of vessel cut off or filling defect to suggest pulmonary embolus. Homogeneous opacity is seen in the thoracic aorta. There is no evidence of aneurysm or dissection. Lung window settings demonstrate a small quantity of loculated pleural fluid on the right anteriorly. This is a little less prominent than the air and fluid collection in this location on the April 14, 2020 study. There is partial collapse with air bronchograms in the perihilar region of the right lung and some chronic consolidation is seen at the upper aspect of the right upper lobe consistent with lobar collapse. There is pleural thickening and interstitial and alveolar opacification of the remaining right lower lobe. This pattern is new. Differential possibilities include superimposed pneumonia and lymphangitis neoplastic spread. The left lung shows a small quantity of fissural fluid and there is left pleural fluid posteriorly. The left pleural effusion is somewhat improved compared to the amount of pleural fluid on the left on April 14, 2020. No adrenal mass lesion is observed. The visualized upper abdominal structures are otherwise unremarkable. Bone window settings show no bony destructive lesion. There are 3 new 1 cm soft tissue nodules in the intercostal fat between the posterior right 9th and 10th ribs. These may be small soft tissue metastases. They do not appear to have been present previously. No other extra thoracic soft tissue nodule is appreciated. IMPRESSION: No CT evidence of pulmonary embolus. New alveolar/interstitial opacifications in the remaining right lower lobe. Superimposed pneumonia versus lymphangitis spread. Chronic collapse right upper lobe. Loculated pleural fluid anteriorly on the right is somewhat improved. A small left pleural effusion is noted also somewhat improved from the April 14, 2020 study. There are 3 linearly aligned 1 cm soft tissue nodules in the inner costal fat between the posterior 9th and 10th ribs on the right which may be a small new soft tissue metastases. <Electronically signed by Segun Quijano > 10/12/20 [id number]
[2020-10-12] MEDS ORDERED: ALBUTEROL SULFATE 2.5 MG/0.5 ML INH NEB SOLN INH PRN (13:35)
[2020-10-12] MEDS ORDERED: ACETAMINOPHEN TAB 650MG DOSE (2X325MG) PO PRN (13:35)
[2020-10-12] MEDS ORDERED: MORPHINE 2 MG/ML 1ML VIAL (J2270) IV ONE (13:40)
[2020-10-12] MEDS ORDERED: NS 1,000 ML IV ONE (15:00)
--- NOTE | 2020-10-12 15:09 | HPEPDOC ---
[facility] Medical History & Physical Date of Admission Oct 12, 2020 Date of Service: Oct 12, 2020 Attending Physician: EDSON WAGNER MD History and Physical CHIEF COMPLAINT: SOB, fever, chills HISTORY OF PRESENT ILLNESS: 60-year-old W with past medical history of locally advanced R sided NSCLC (03/30/20) status post chemotherapy, radiation and 1 year maintenance therapy with durvalumab with recent 06/[address] scan deemed without evidence of POD by Dr. Meade in clinic, radiation serositis of the lung, recurrent tonsillitis, hypothyroidism, COPD, with a history of an empyema and recurrent pneumonia who presented to [facility] emergency room with a chief complaint of progressive increased shortness of breath. She otherwise also reported some episodic chest wall pain but no substernal pain, nausea, vomiting, abdominal pain, diarrhea, constipation, hemoptysis, hematemesis. In the emergency room the patient found to saturate well on room air and but was tachycardic with a heart rate of 128, febrile to 101.4 and with a soft BP of 94/67. Workup was notable for CT chest that showed R lower lobe interstitial opacities c/f PNA vs. lymphangitic involvement, previously noted RLL collapse, loculated pleural fluid in the anterior RLL that was improved from prior, a small L pleural effusion improved from prior, and newly noted 3 1cm nodules between the posterior 9th and 10th ribs, CXR had showed the previously known R hilar mass and RLL collapse, while lactate was 3.3, WBC 7.8, Hgb 13.7, platelets 245, proBNP 689, Na 138, K 4, Cr 0.73, LFTs wnl and troponin wnl. Given the fe pauline, SOB, RLL interstitial opacities and hypotension, she was given 30cc/kg NS, BCx drawn and empiric ceftriaxone was given for sepsis 2/2 PNA. While in the ED, she complained of some chest wall pain and received some morphine as well. She later developed some hypotension, and I have just ordered another 1L bolus and am now admitting her to the ICU for sepsis 2/2 PNA. REVIEW OF SYSTEMS: CONSTITUTIONAL: Reports that she did not note any fevers at home, was febrile at presentation, no night sweats EYES: Denies eye drainage, eye pain, visual changes, dry/irritated eye EARS, NOSE, MOUTH, THROAT: Denies difficulty hearing, ringing in ears, mouth sores, loose teeth, sore throat, facial numbness or pain NECK: Denies swollen glands CARDIOVASCULAR: Denies irregular heartbeat, racing heart, chest pains, swelling of feet or legs, pain in legs with walking RESPIRATORY: Has been increasingly short of breath since yesterday when she tried to clean her windows. Otherwise has not had any sputum production, does not use oxygen at home, has not been coughing up blood. Does report L chest wall pain every since she had a chest tube 2 admissions ago. GASTROINTESTINAL: Denies abdominal pain, constipation, bloody stool, diarrhea, heartburn, nausea, vomiting GENITOURINARY: Denies painful urination, bloody urine, frequent urination, urgency, leaking urine, impotence MUSCULOSKELETAL: Denies joint pain, muscle pain, leg swelling INTEGUMENTARY: Denies rash, itching, new skin lesion, change in existing skin lesion, hair loss or increase, breast changes. NEUROLOGICAL: Denies headaches, dizziness, difficulty walking, numbness or tingling PSYCHIATRIC: Denies depression, anxiety, hallucinations PAST MEDICAL HISTORY: 1. Right lung empyema s/p drainage 2. 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 Recurrent tonsillitis 5. Hypothyroidism 6. COPD PAST SURGICAL HISTORY: 1. Thoracentesis for chronic R pleural effusion (03/30/20) 2. Pericardiocentesis for chronic pericardial effusion 3. Thoracentesis for empyema 4. R shoulder surgery 5. SOCIAL HISTORY: Former smoker, smoked 1 ppd for 20 years, quit 14 years ago Occasional alcohol Denies illicit drugs FAMILY HISTORY: Noncontributory HOME MEDICATIONS: Please see below. PHYSICAL EXAMINATION: VS: Please see below CONSTITUTIONAL: No acute distress, resting comfortably, AAO x 3 EYES: PERRLA, EOM intact HENT, MOUTH: Normocephalic, atraumatic, moist mucous membranes, nasal cannula in place NECK: SUPPLE, no JVD, no lymphadenopathy, no carotid bruit CV: Regular rhythm, tachycardic, S1S2 normal, no murmurs/rubs/gallops RESP: No breath sounds heard in posterior right lung base, good air movement in the apexa, good air movement without crackles, wheezing or rhonchi on the left side. GI: Scaphoid abdomen, BS positive in 4 quadrants, soft, nontender, nondistended, no rebound or guarding, no organomegaly MUSCULOSKELETAL: Normal ROM. No cyanosis, clubbing, swelling, joint deformity, extremity edema INTEGUMENTARY: Intact, no rashes, no lesions, no erythema NEUROLOGIC: Cranial Nerves II-XII are intact, no focal deficits, generally weak however with 4/5 strength in all extremities PSYCHIATRIC: Mood and affect are normal LABORATORY DATA and IMAGING: as noted above MICROBIOLOGY: Blood cultures x 2 sets: pending Sputum Cx ordered ASSESSMENT: 60-year-old W with past medical history of locally advanced R sided NSCLC (03/30/20) status post chemotherapy, radiation and 1 year maintenance therapy with durvalumab with recent 06/[address] scan deemed without evidence of POD by Dr. Meade in clinic, radiation serositis of the lung, recurrent tonsillitis, hypothyroidism, COPD, with a history of an empyema and recurrent pneumonia who presented to [facility] emergency room with a chief complaint of progressive increased shortness of breath now being admitted to the ICU for severe sepsis 2/2 PNA likely post-obstructive PNA with hypotension, with concern for POD given 3 new noted nodules to consult onc in the AM. PLAN: PNA likely post-obstructive PNA vs. aspiration with severe sepsis: -Febrile, RLL interstitial opacities, tachycardia, hypotension -Hx of radiation which can be cause of difficulty clearing secretions and difficulty swallowing per patient and increased risk for aspiration -Swallowing evaluation -Empiric CFX/doxy -F/u sputum and blood cultures -s/p 30cc/kg sepsis bolus, getting 1L bolus now, and will continue on 125cc/hr NS after Elevated BNP -Clinically patient not in decompensated heart failure -Last echo showed a preserved EF, proBNP mildly elevated Adenocarcinoma of the lung -Was last seen by medical oncology 07/17. In 07/17 Dr. Meade concluded that she had no evidence of POD. Will consult onc tomorrow AM to discuss new noted nodules, 3 of them that are 1cm each in the R chest wall. Hypothyroidism -C/w Levothyroxine Anemia likely 2/2 iron deficiency - H/H stable - C/w Ferrous sulfate DVT prophylaxis - c/w Lovenox DISPOSITION: Admitted under inpatient status to ICU for severe sepsis with persistent hypotension. Plan is discharge back to home when medically improved. Vital Signs Vital Signs Date Time Temp Pulse Resp B/P (MAP) Pulse Ox O2 Delivery O2 Flow Rate FiO2 10/12/20 11:37 128 117/66 (83) 93 Room Air 10/12/20 09:09 101.4 30 15.0 Laboratory Data Labs 24H Laboratory Tests 2 10/12/20 08:59: Immature Granulocyte % (Auto) 0.4, Neutrophils (%) (Auto) 86.8H, Lymphocytes (%) (Auto) 7.1L, Monocytes (%) (Auto) 4.3, Eosinophils (%) (Auto) 1.0, Basophils (%) (Auto) 0.4, Neutrophils # (Auto) 6.7, Lymphocytes # (Auto) 0.6L, Monocytes # (Auto) 0.3, Eosinophils # (Auto) 0.1, Basophils # (Auto) 0.0, Nucleated Red Blood Cells % (auto) 0.0, Prothrombin Time 13.6, Prothromb Time International Ratio 1.02, Anion Gap 9, Glomerular Filtration Rate > 60.0, Lactic Acid Level 3.3*H, Calcium Level 9.0, Total Bilirubin 0.3, Direct Bilirubin 0.1, Aspartate Amino Transf (AST/SGOT) 26, Alanine Aminotransferase (ALT/SGPT) 25, Alkaline Phosphatase 167H, Total Creatine Kinase 46, Creatine Kinase MB < 1.0, Creatine Kinase MB Relative Index 2.17, Troponin I < 0.02, JF-Cka-[id number]-Type Natriuretic Pe ptide 689H, Total Protein 7.9, Albumin 3.5, Albumin/Globulin Ratio 0.8L, Thyroid Stimulating Hormone (TSH) 1.180, Thyroxine (T4) 14.3H 10/12/20 09:04: Blood Gas Bicarbonate Standard 19.7, Venous Blood pH 7.314L, Venous Blood Partial Pressure CO2 41.8, Venous Blood Partial Pressure O2 38.1, Venous Blood Total Carbon Dioxide 22.0L, Venous Blood HCO3 20.8L, Venous Blood Oxygen Sa turation 70.4, Venous Blood Base Excess -5.2L CBC/BMP Laboratory Tests 10/12/20 08:59 Microbiology Microbiology 10/12/20 Blood Culture, Received Pending 10/12/20 Respiratory Virus Panel (PCR) ([facility]O) - Final, Complete 10/12/20 Blood Culture, Received Pending Home Medications Scheduled Budesonide/Formoterol Fumarate (Budesonide-Formoterol 160-4.5) 10.2 Gm Hfa.aer.ad, 2 PUFFS INH BID Levothyroxine Sodium (Synthroid) 75 Mcg Tablet, 75 MCG PO DAILY Allergies Coded Allergies: No Known Allergies (Unverified , 05/05/20) A-FIB/CHADSVASC A-FIB History Current/History of A-Fib/PAF?: No Current PO Anticoag Therapy: No Age/Risk Factor Scoring CHADSVASC: CHADSVASC Response (Comments) Value Age Risk Factor Age < 65 years old 0 Gender Risk Factor Female 1 Hx of CHF No 0 Hx of HTN No 0 Hx of Stroke/TIA/or VTE No 0 Hx of Diabetes No 0 Hx of Vascular Disease No 0 Total 1 Treatment Treatment ordered: NONE Reason Anticoagulant not given: Not indicated/[id number] EDSON WAGNER MD Oct 12, 2020 14:40
[2020-10-12] MEDS ORDERED: NOREPINEPHRINE 4 MG/4 ML AMP As Ordered ONE ×2 (17:08→17:11)
[2020-10-12] MEDS ORDERED: NOREPINEPHRINE BITARTRATE 8 MG in D5W 492 ML IV SCH (17:15)
[2020-10-12] MEDS ORDERED: LIDOCAINE 1% MDV 20ML VIAL As Ordered ONE (17:33)
[2020-10-12] MEDS ORDERED: NOREPINEPHRINE BITARTRATE 16 MG in D5W 484 ML IV SCH (18:00)
[2020-10-12] MEDS: DOXYCYCLINE HYCLATE 100 MG in D5W MINI-BAG PLUS 100 ML IV SCH (18:18)
--- NOTE | 2020-10-12 19:14 | RO ---
OPERATIVE NOTE DATE OF OPERATION: 10/12/2020 PROCEDURE: Central line insertion. INDICATIONS: Vasopressor administration. PRE-PROCEDURE DIAGNOSIS: Septic shock. POST-PROCEDURE DIAGNOSIS: Septic shock. ATTENDING PHYSICIAN: Amanda Cain MD CONSENT: The consent was obtained from the patient prior to the procedure. Indications, risks, and benefits were explained at length. PROCEDURE SUMMARY: A central line insertion practice form was completed by an independent observer. A time-out was performed prior to the procedure. Full sterile technique was maintained throughout the procedure, including surgical cap, mask with protective eyewear, full gown, and sterile gloves. The patient was placed supine. The right femoral region was prepped using chlorhexidine scrub and draped in a sterile fashion using a fenestrated drape and a sterile probe cover employed. The right femoral vein was identified using ultrasound. Anesthesia was achieved over the vein using 1% lidocaine. Using real real-time [id number] guidance, the introducer needle was inserted into the femoral vein under direct ultrasound visualization. Venous blood was withdrawn. The syringe was removed and a guidewire was advanced into the introducer needle. The introducer needle was removed over the guidewire. A small incision was made at the skin surface with a scalpel and a dilator was exchanged over the guidewire. After appropriate dilation was obtained, the dilator was exchanged over the wire for a triple-lumen central venous catheter. The wire was removed and the catheter was sutured in place. A sterile chlorhexidine-impregnated dressing was placed over the catheter at the insertion site. The patient tolerated the procedure without any hemodynamic compromise. At the time of procedure completion, all ports were aspirated and flushed properly. Estimated blood loss is less than 2 mL.
--- NOTE | 2020-10-12 19:58 | CR ---
PULMONARY CRITICAL CARE CONSULTATION DATE: 10/12/2020 CHIEF COMPLAINT: Hypotension and shortness of breath. HISTORY OF PRESENT ILLNESS: Ms. Elder is a 60-year-old female with a past medical history of right upper lobe adenocarcinoma stage 3a, status post chemotherapy and radiation, history of chronic obstructive pulmonary disease, hypothyroidism, prior right sided empyema and a previous history of a left pleural effusion as well, who presented with complaints of worsening shortness of breath as well as chest pain since earlier today. The patient states prior to this she was in her usual state of health. She does have a history of a chronic cough which is productive of white or yellow mucous. She does have evidence of bronchiectasis and is to be using a nebulized bronchodilator and acapella device for mucous clearance, however the patient generally does not like to use her nebulized bronchodilators as she feels they "flood her lungs". The patient did feel that she may have over exerted herself the day before with cooking as well as cleaning windows and the cleaning chemical in particular, she feels may have caused her to just have some increasing shortness of breath. This morning however she started noticing chills as well as chest pain on the left side more than the right, which is worse with coughing. The patient also will occasionally have a coughing episode where she will start to gag because of the mucous and her cough. She otherwise has not had any vomiting and she denied noticing any hemoptysis. She did not notice fevers at home, just the chills. In the E.D. the patient was tachycardic and febrile to 101.4. She was given antibiotics empirically with Ceftriaxone as well as IV fluid bolus with 30 mL per kg normal saline. She continued to be hypotensive and was started on an additional third liter normal saline bolus with minimal improvement in her blood pressure and continued to be hypotensive with systolic in the 70's. She does appear to be awake, alert and is mentating appropriately, and her previous mild lactic acidosis did trend down. PAST MEDICAL HISTORY: The patient's past medical history is significant for: 1. Adenocarcinoma of the right upper lobe, stage 3a, status post chemo/RT and immunotherapy. 2. History of radiation pneumonitis of the lung. 3. Chronic obstructive pulmonary disease. 4. Prior nicotine dependence. 5. Hypothyroidism. 6. History of right lung empyema, status post drainage. 7. History of a left pleural effusion, status post thoracentesis with negative fluid studies for malignancy. 8. History of a pericardial centesis for a pericardial effusion. 9. Recurrent tonsillitis. PAST SURGICAL HISTORY: The patient's past surgical history is significant for: 1. Right shoulder surgery. 2. . FAMILY HISTORY: Reviewed. No pertinent family history. SOCIAL HISTORY: The patient is a former smoker with one pack a day for 20 years, quit more than 14 years ago. Occasional alcohol use. Denies illicit drug use. HOME MEDICATIONS: 1. Symbicort. 2. Synthroid. 3. Albuterol nebulized bronchodilator. 4. Sodium Chloride nebulized. ALLERGIES: NO KNOWN DRUG ALLERGIES. PHYSICAL EXAMINATION: VITAL SIGNS: T-max 101.4, T-current 99, pulse 112, respirations 23, blood pressure 76/50, O2 sat 92% on room air, with trending down at times to 88% on room air. INTAKE AND OUTPUT: In's almost 3 liters, out's not documented. GENERAL APPEARANCE: The patient is lying in bed, appears to be in some mild discomfort from pain and is coughing at times during examination. She is awake and alert and able to speak in complete sentences and is not using any accessory muscles for respiration currently. HEENT: Normocephalic and atraumatic. There are moist mucous membranes noted. NECK: Supple. No palpable adenopathy and no jugular venous distention. CARDIOVASCULAR: Irregular rhythm, tachycardic. Normal S1, S2, unable to clearly auscultate any murmurs. RESPIRATORY: There are coarse rhonchi noted, more in the right lung with some diminished breath sounds towards the right base. There are occasional crackles and rhonchi on the left. ABDOMEN: Soft, nontender, nondistended. Positive bowel sounds. EXTREMITIES: There is no lower extremity edema noted bilaterally. LABORATORY STUDIES: WBC 7.8, hemoglobin 13.7, platelet count 245. Chemistries - sodium is 138, potassium is 4.0, chloride is 105, bicarbonate is 294, BUN 9, creatinine 0.73, glucose 135. Lactic acid was 3.3; repeated it is 1.7. Troponins are negative. BNP is 69, TSH 1.180, T-4 14.3. BBT PA 7.314, pco2 of 41.8, pO2 of 38.1. IMAGING: CT angio showed no evidence of P.E. There is a small loculated pleural effusion on the left which was seen on the prior CT in June and appears relatively unchanged. There is some increased atelectasis in the left lower lobe as well as some more respiratory motion artifact. There is on the right side a partial gas with air bronchograms in the perihilar region in the right lung which is chronic as well as chronic consolidation in the left upper lobe/left middle lobe which is unchanged from prior imaging. There is a small pleural effusion on the right lung which appears relatively unchanged, but there is some new pleural studding noted and thickening and there are also increased interstitial and alveolar opacities in the remaining right lower lobe which is new from prior imaging in June. There are also possible new soft tissue metastases on the right side in the intercostal fat between the ribs. ASSESSMENT AND PLAN: 1Ms. Jael is a 60-year-old female with a past medical history of right upper lobe adenocarcinoma status post chemo/RT, chronic obstructive pulmonary disease, prior history of empyema, and a history of left pleural effusion, status post thoracentesis with no evidence of malignancy in the past, history of a pericardial effusion, status post pericardial centesis, who presented with complaints of worsening shortness of breath, cough and chest pain. The patient was febrile on admission as well as tachycardic. She also had increased lactic acid with concern for sepsis, likely secondary to a pneumonia. Her CT angio did show worsening interstitial opacities in the right lower lobe, although there is a possibility as well of lymphangitic spread, particularly given the new possible soft tissue metastases and pleural studding on that right lung. The patient was given empiric antibiotics in the E.D. as well as IV fluid bolus of more than 30 mL per kg. She developed worsening hypotension with systolic blood pressures in the 70's, not improving with fluid boluses. Critical Care was therefore consulted for central line placement for her likely septic shock. Patient likely with pneumonia and septic shock she was started on Ceftriaxone and Doxycycline was added. Would continue with Ceftriaxone and Doxycycline and would check a sputum culture and follow up results of blood cultures to help aide in deescalation of antibiotics. - Would check a baseline procalcitonin and continue trending to help aide in further deescalation as well. - Would start the patient on Levophed to maintain a MAP above 65 she does have elevated BNP and a previous echo did show evidence of some low normal EF and grade 2 diastolic dysfunction. The patient does have a prior history of pericardial effusion but on CTA there does not appear to be significant pericardial effusion and so hypotension is less likely being in the setting of any cardiac tamponade, but would closely monitor. In the past she has required Lasix at times for diuresis. Would be cautious about further fluid administration, particularly as she does not appear to be fluid responsive. Would discontinue maintenance fluids at this time and continue with oral hydration with prn fluid boluses as needed - The patient does report increasing cough and difficulty expectorating mucous. She is supposed to be on saline nebulized bronchodilators and Albuterol for pulmonary clearance for her bronchiectasis but she has not been compliant with it. Would start her on nebulized bronchodilators q. 8 hours with saline Nebs for pulmonary toilet. - Can continue with her home inhaler of Symbicort. - Continue nasal cannula oxygen supplementation as needed to maintain 02 sat above 90%. - The patient does have concern on imaging for possible metastatic spread she can follow up as an outpatient with PET CT and follow up with her oncology. DVT prophylaxis Lovenox. Code Status full code. Total critical care time spent not including any procedures approximately one hour and thirty minutes. MTDD
[2020-10-12] MEDS: SYMBICORT 160/4.5MCG INHALER 6GM INH SCH (20:20)
[2020-10-12] MEDS: SODIUM CHLORIDE 0.9% 3ML NEB SOLUTION FOR INHALATION INH SCH (20:20)
[2020-10-12] MEDS: ALBUTEROL SULFATE 2.5 MG/0.5 ML INH NEB SOLN INH SCH (20:21)
[2020-10-12] MEDS ORDERED: IBUPROFEN 200MG TAB PO ONE (22:15)
[2020-10-13] VITALS (51 sets, daily range): BP systolic 78–146; BP diastolic 44–88
[2020-10-13] MEDS: DOXYCYCLINE HYCLATE 100 MG in D5W MINI-BAG PLUS 100 ML IV SCH (04:20)
[2020-10-13] MEDS: NOREPINEPHRINE BITARTRATE 16 MG in D5W 484 ML IV SCH (05:00)
[2020-10-13 05:50] LABS: HEMATOCRIT 36.2 % (36.0-47.0); MEAN CORPUSCULAR HEMOGLOBIN 28.6 pg (27.0-33.0); MEAN CORPUSCULAR HGB CONC 31.5 g/dl (32.0-36.5); MEAN CORPUSCULAR VOLUME 90.7 fl (80.0-96.0); PLATELET COUNT, AUTOMATED 296 10^3/uL (150-450); RED BLOOD COUNT 3.99 10^6/uL (4.00-5.40)
[2020-10-13] MEDS ORDERED: LEVOTHYROXINE 75MCG TABLET (0.075MG) PO SCH (06:00)
[2020-10-13 06:10] LABS: HEMOGLOBIN 11.4 g/dl (12.0-15.5)
[2020-10-13 06:16] LABS: BLOOD UREA NITROGEN 12 MG/DL (7-18); CALCIUM LEVEL 8.7 MG/DL (8.5-10.1); CARBON DIOXIDE LEVEL 23 MEQ/L (21-32); CHLORIDE LEVEL 110 MEQ/L (98-107); CREATININE FOR GFR 0.71 MG/DL (0.55-1.30); GLOMERULAR FILTRATION RATE > 60.0 (>51); GLUCOSE, FASTING 137 MG/DL (70-100); MAGNESIUM LEVEL 1.7 MG/DL (1.8-2.4); POTASSIUM SERUM 3.7 MEQ/L (3.5-5.1); SODIUM LEVEL 141 MEQ/L (136-145)
[2020-10-13] MEDS: ALBUTEROL SULFATE 2.5 MG/0.5 ML INH NEB SOLN INH SCH ×3 (08:00→19:39)
[2020-10-13] MEDS: SODIUM CHLORIDE 0.9% 3ML NEB SOLUTION FOR INHALATION INH SCH ×2 (08:00→19:39)
[2020-10-13] MEDS: SYMBICORT 160/4.5MCG INHALER 6GM INH SCH ×2 (08:32→19:38)
[2020-10-13] MEDS ORDERED: NS 500 ML IV ONE (08:35)
[2020-10-13] MEDS: ENOXAPARIN 30MG/0.3ML SYRINGE (J1650 PER 10MG) SC SCH (08:51)
[2020-10-13] MEDS: PIPERACILLIN/TAZOBACTAM SOD 3.375 GM in D5W MINI-BAG PLUS 50 ML IV SCH ×3 (08:51→21:20)
[2020-10-13] MEDS ORDERED: MAG SULF 1GM/100ML (MAG RUN) 1 GM in IV 1 EA IV ONE (09:00)
[2020-10-13] MEDS: KETOROLAC 30 MG/ML 1ML VIAL IV PRN ×3 (09:01→21:24)
--- NOTE | 2020-10-13 09:12 | ECGEPIP ---
[facility] - ED Test Date: 2020-10-12 Pat Name: KALPESH FERRARA Department: Room: [place] [address] Gender: Female Grey Percher: GUILLERMINA : 1960 Requested By: SHEKHAR Silva Order Number: [id number] Reading MD: Shekhar Osorio Measurements Intervals [place] Rate: 119 P: 41 WI: 122 QRS: 66 QRSD: 66 T: 27 QT: 292 QTc: 410 Interpretive Statements Sinus tachycardia Nonspecific ST-T wave abnormalities Similar to tracing done 04-14-20 Electronically Signed on 10-13-2020 9:11:39 EDT by Shekhar Osorio
--- NOTE | 2020-10-13 09:37 | REP ---
INDICATION: SOB COMPARISON: None. TECHNIQUE: Portable AP view of the chest FINDINGS: Increased, near complete opacification of the right hemithorax suggesting effusion and consolidations is appreciated along with left lower lobe opacities and small left pleural effusion. No pneumothorax. Visualized cardiac silhouette is normal. Skeletal structures are intact. IMPRESSION: 1. Increased near complete opacification of the right hemithorax suggesting pleural fluid and underlying pulmonary opacities. 2. Increased left lower lobe opacities and small pleural effusion. <Electronically signed by Trevor Marshall > 10/13/20 0933
--- NOTE | 2020-10-13 10:05 | IPNPDOC ---
Text Note Date of Service The patient was seen on 10/13/20. NOTE SUBJECTIVE: -Now on levophed for septic shock unresponsive to IVF -Complaining of L lower lateral chest wall pain -wheezy and audible upper airway sounds this morning PHYSICAL EXAMINATION: VS: Please see below CONSTITUTIONAL: No acute distress, appears uncomfortable this morning, with audible wheeze and upper airway sounds, AAO x 3 EYES: PERRLA, EOM intact HENT, MOUTH: Normocephalic, atraumatic, moist mucous membranes, nasal cannula in place NECK: SUPPLE, no JVD, no lymphadenopathy, no carotid bruit CV: Regular rhythm, tachycardic, S1S2 normal, no murmurs/rubs/gallops RESP: No breath sounds heard in posterior right lung base, crackles throughout at this point, mild expiratory wheezing, +rhonchi GI: Scaphoid abdomen, BS positive in 4 quadrants, soft, nontender, nondistended, no rebound or guarding, no organomegaly MUSCULOSKELETAL: Normal ROM. No cyanosis, clubbing, swelling, joint deformity, extremity edema INTEGUMENTARY: Intact, no rashes, no lesions, no erythema NEUROLOGIC: Cranial Nerves II-XII are intact, no focal deficits, generally weak however with 4/5 strength in all extremities PSYCHIATRIC: Mood and affect are normal LABORATORY DATA: WBC 14 Hgb 11.4 platelets 296 Na 141 K 3.7 Cr 0.71 MICROBIOLOGY: 10/12 Blood cultures x 2 sets: GNRs 10/13 BCx - drawn, pending Sputum Cx pending ASSESSMENT: 60-year-old W with past medical history of locally advanced R sided NSCLC (03/30/20) status post chemotherapy, radiation and 1 year maintenance therapy with durvalumab with recent 06/[address] scan deemed without evidence of POD by Dr. Meade in clinic, radiation serositis of the lung, recurrent tonsillitis, hypothyroidism, COPD, with a history of an empyema and recurrent pneumonia who presented to [facility] emergency room with a chief complaint of progressive increased shortness of breath now being admitted to the ICU for severe sepsis 2/2 PNA likely post-obstructive PNA with hypotension, with concern for progress of disease given 3 new noted nodules to FYI onc today. PLAN: PNA likely post-obstructive PNA vs. aspiration with severe sepsis: -Febrile, RLL interstitial opacities, tachycardia, hypotension -Hx of radiation which can be cause of difficulty clearing secretions and difficulty swallowing per patient and increased risk for aspiration -Swallowing evaluation -Switched CFX/doxy to zosyn/doxy given GNRs to cover for potential pseudomonas. -F/u sputum and blood cultures -s/p aggressive IVF, got 1L this AM -CXR given wheezing and crackles after IVF -consulted pulm, appreciate recs Elevated BNP -On presentation was clinicallynot in decompensated heart failure -Last echo showed some HFpEF with diastolic dysfunction -Now with some wheezing, rhonchi and wet crackles, imaging there is some pulmo congestion s/p aggressive fluids --> check CXR Septic shock: 2/2 PNA with bacteremia -10/12 BCx +GNRs, f/u 10/13 BCx -Switched abx to piptazo/doxy -s/p IVF without hemodynamic response, now on levophed, with goal MAP>65 Adenocarcinoma of the lung -Was last seen by medical oncology 07/17. In 07/17 Dr. Meade concluded that she had no evidence of POD. Will call onc today to discuss new noted nodules, 3 of them that are 1cm each in the R chest wall. Hypothyroidism -Reduce Levothyroxine, given elevated fT4 Anemia likely 2/2 iron deficiency - H/H stable - C/w Ferrous sulfate L lower lateral chest wall pain: -was started on toradol [id number] for severe pain -Will also check UA given potential flank pain DVT prophylaxis - c/w Lovenox DISPOSITION: Admitted under inpatient status to ICU for septic shock 2/2 PNA. Plan is discharge back to home when medically improved. VS,Uribone, I+O VS, Fishbone, I+O Laboratory Tests 10/13/20 05:25 Vital Signs Date Time Temp Pulse Resp B/P (MAP) Pulse Ox O2 Delivery O2 Flow Rate FiO2 10/13/20 05:00 101 99/66 (77) 10/13/20 04:00 99.2 18 96 Nasal Cannula 2.0 10/12/20 20:23 28 I&O- Last 24 Hours up to 6 AM 10/13/20 06:00 Intake Total 2166.0 ml Output Total 875 ml Balance 1291.0 ml EDSON WAGNER MD Oct 13, 2020 10:03
[2020-10-13] MEDS ORDERED: cefTRIAXone SOD 2 GM in D5W MINI-BAG PLUS 50 ML IV SCH (11:00)
[2020-10-13] MEDS: predniSONE 20 MG TAB PO SCH (12:43)
--- NOTE | 2020-10-13 12:49 | CCN ---
CRITICAL CARE NOTE DATE: 10/13/2020 SUBJECTIVE: The patient was seen and examined this morning during bedside rounds. Overnight, the patient did require increasing amounts of Levophed to maintain her MAP above 65. This morning she was up to 15 mcg per minute but was able to wean down shortly afterwards to 12 mcg per minute. She did have further episodes of fever overnight and the patient is continuing to complain of chest pain particularly when coughing and with deep inspiration. She is still having difficulty expectorating mucous despite using the nebulized bronchodilators. Some of this is also as she is having difficulty with strong coughing because of her pain. OBJECTIVE: VITAL SIGNS: T-max 102.6, currently 99.2, pulse 101, respirations 18, blood pressure is 99/66, O2 sat is 96% on 2 liters nasal cannula and 93% on room air. INPUT AND OUTPUT: In is 1.8 liters, out 250 ml. GENERAL: Patient is sitting in bed, appears to be in mild discomfort from pain and is coughing during the examination. He is awake and alert, and is able to speak in complete sentences and occasionally is using some pursed lip breathing. HEENT: Normocephalic, atraumatic. There was moist mucous membranes noted. NECK: Supple. No palpable cervical adenopathy. No obvious JVD. CARDIAC: Regular rate and rhythm tachycardic. Normal S1 and S2. Unable clearly appreciate murmurs. RESPIRATORY: There is coarse rhonchi noted bilaterally although somewhat more prominent on the right with some occasional crackles. ABDOMEN: Soft, nontender and nondistended. There are positive bowel sounds present. EXTREMITIES: There is no significant lower extremity edema noted bilaterally. LABORATORY DATA: WBC is 14.0, hemoglobin 11.4, platelets are 296,000. Chemistries: Sodium is 141, potassium is 3.7, chloride is 110, bicarbonate is 23, BUN 12, creatinine 0.71, glucose 137. Magnesium is 1.7. ASSESSMENT AND PLAN: Mrs. Elder is a 60-year-old female with a past medical history or right upper lobe adenocarcinoma status post chemo/RT, COPD with a prior history of empyema on the right lung with a left pleural effusion previously sampled with thoracentesis with no evidence of malignancy as well as a prior history of a pericardial effusion status post drainage who presented with complaints of worsening shortness of breath, coughing, and chest pain. The patient was febrile on admission as well as tachycardic with an increased lactic acidosis likely secondary to sepsis. Patient was also found to be hypotensive with a concern for septic shock in the setting of pneumonia. 1. Pneumonia with septic shock. 2. Acute hypoxemic respiratory failure in the setting of pneumonia and possible COPD exacerbation. - Patient was started initially on Ceftriaxone and Doxycycline. She did continue to have fevers overnight and given her history with bronchiectasis and upon evaluation of previous clinic visit notes and hospitalizations, a prior history of exacerbations, would broaden her antibiotics to ensure coverage for pseudomonas and more gram negative and anaerobic coverage. Would therefore put her on Zosyn and can continue with Doxycycline for now pending results of a MRSA screen. - Would continue to monitor her procalcitonin to brewer helper in the deescalation of antibiotics. Will follow the result of sputum culture and blood culture as well to brewer helper in de-escalation. - Patient is on Levophed for vasopressor support with her septic shock to maintain a MAP above 65. She did require increasing amounts of pressors overnight and so will give her a 500 ml bolus of normal saline to see if she is fluid responsive. Would need to be cautious about fluid administration as she does have elevated BNP and prior echo showing evidence of low normal EF and Grade 2 diastolic dysfunction. She does also have a previous history of being fluid overloaded at times in the past requiring Lasix for diuresis. - Patient was started on nebulized Albuterol and saline for pulmonary clearance. Patient is also on Symbicort for her home inhaler twice a day. She continues to report difficulty expectorating mucous, however although some of this is also due to her poor cough with the chest pain. Would start her on Toradol for pain relief and continue to encourage patient with using Acapella device and incentive spirometry for pulmonary toilet. - Patient is continuing to report symptoms of shortness of breath and dyspnea. Her hypoxia has been improving and while she does not have this much wheezing on exam will start her on oral prednisone four or five day course as she may also have a component of COPD exacerbation contributing to her symptoms. - Continue monitoring O2 sats and nasal cannula oxygen as needed to maintain the sat above 90%. - Patient does need follow-up as an outpatient with her oncologist given some concern for metastatic spread on her initial CT. DVT prophylaxis, Lovenox. Code status: Full code. Total care time spent excluding procedures approximately 40 minutes. RADHA
[2020-10-14] VITALS (15 sets, daily range): BP systolic 91–135; BP diastolic 52–79
[2020-10-14] MEDS: PIPERACILLIN/TAZOBACTAM SOD 3.375 GM in D5W MINI-BAG PLUS 50 ML IV SCH ×4 (03:10→20:30)
[2020-10-14] MEDS: LEVOTHYROXINE 25MCG TABLET (0.025MG) PO SCH (05:45)
[2020-10-14 05:46] LABS: HEMOGLOBIN 10.6 g/dl (12.0-15.5); MEAN CORPUSCULAR HEMOGLOBIN 28.6 pg (27.0-33.0); MEAN CORPUSCULAR HGB CONC 32.1 g/dl (32.0-36.5); MEAN CORPUSCULAR VOLUME 89.2 fl (80.0-96.0); PLATELET COUNT, AUTOMATED 193 10^3/uL (150-450)
[2020-10-14] MEDS: NOREPINEPHRINE BITARTRATE 16 MG in D5W 484 ML IV SCH (05:46)
[2020-10-14 06:15] LABS: BLOOD UREA NITROGEN 15 MG/DL (7-18); CALCIUM LEVEL 8.4 MG/DL (8.5-10.1); CARBON DIOXIDE LEVEL 25 MEQ/L (21-32); CHLORIDE LEVEL 109 MEQ/L (98-107); CREATININE FOR GFR 0.57 MG/DL (0.55-1.30); GLOMERULAR FILTRATION RATE > 60.0 (>51); GLUCOSE, FASTING 143 MG/DL (70-100); POTASSIUM SERUM 3.6 MEQ/L (3.5-5.1); SODIUM LEVEL 141 MEQ/L (136-145)
[2020-10-14] MEDS: ALBUTEROL SULFATE 2.5 MG/0.5 ML INH NEB SOLN INH SCH ×3 (07:37→19:44)
[2020-10-14] MEDS: SODIUM CHLORIDE 0.9% 3ML NEB SOLUTION FOR INHALATION INH SCH ×3 (07:37→19:44)
[2020-10-14] MEDS: ENOXAPARIN 30MG/0.3ML SYRINGE (J1650 PER 10MG) SC SCH (09:36)
[2020-10-14] MEDS: predniSONE 20 MG TAB PO SCH (09:37)
[2020-10-14] MEDS ORDERED: PILL CUTTER 1 EACH XX PRN (10:00)
[2020-10-14] MEDS: HYDROmorphone 2 MG TAB PO PRN ×2 (10:27→17:22)
[2020-10-14] MEDS: SYMBICORT 160/4.5MCG INHALER 6GM INH SCH ×2 (10:59→19:44)
--- NOTE | 2020-10-14 12:21 | CCN ---
CRITICAL CARE NOTE DATE: 10/14/2020 SUBJECTIVE: The patient was seen and examined this morning during bedside rounds. Yesterday evening, the patient was able to be weaned down on her Levophed requirements to 4 mcg/min and overnight was able to be weaned off entirely. She was taken off of Levophed early this morning and her MAPs have been maintained above 65. The patient also has remained afebrile overnight. She does continue to report difficulty expectorating her mucous, but her lung sounds are improved and some of her shortness of breath has improved slightly. She does continue to have chest pain, particularly with deep inspiration and coughing, so has not been using her Acapella device or incentive spirometer. She is getting Toradol, which does relieve some of the pain; except as stated when she has the coughing episodes and deep inspiration. OBJECTIVE: VITAL SIGNS: Temperature 98.4, pulse 109, respirations 22, blood pressure 105/68, O2 sat 98% on room air. GENERAL: The patient is sitting in bed, appears more comfortable today, and is speaking in complete sentences with no respiratory accessory muscle use. HEENT: Normocephalic, atraumatic. There are moist mucous membranes. NECK: Supple. No palpable cervical lymphadenopathy. No JVD. CARDIAC: Regular rate and rhythm. Mildly tachycardic with normal S1, S2 and unable to clearly appreciate murmurs. RESPIRATORY: There is improvement in the coarse rhonchi noted previously with some mild rhonchi and crackles more on the right now. ABDOMEN: Soft, nontender, and nondistended. There are positive bowel sounds present. EXTREMITIES: There is no significant lower extremity edema noted bilaterally. LABORATORY DATA: WBC 11.0, hemoglobin 10.6, platelets 193,000. Chemistries with sodium 141, potassium 3.6, chloride 109, bicarb 25, BUN 15, creatinine 0.57, glucose 143. Lactic acid trended down to 1.7. Calcium is 8.4. Magnesium 2.0. MICROBIOLOGY: Blood cultures were positive for Pasteurella multocida on both bottles. ASSESSMENT AND PLAN: Ms. 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 The patient was found to be in septic shock in the setting of suspected pneumonia initially. Her blood cultures are now also positive for a Pasteurella multocida and so she is also bacteremic with gram-negative organisms. 1. Pneumonia and bacteremia with septic shock. 2. Acute hypoxemia respiratory failure in the setting of pneumonia with possible COPD exacerbation. - The patient was broadened yesterday to Zosyn and she has had improvement in her leukocytosis and her fever curve. With the positive blood cultures results now of gram-negative rods, we will continue with Zosyn until we have the final sensitivities for de-escalation. She would likely need two weeks of antibiotics at this point from her first negative blood culture given the bacteremia. The doxycycline will be discontinued. - The patient was on Levophed for blood pressure support with her septic shock. She has been weaned off of the Levophed now this morning and has been maintaining a mean arterial pressure (MAP) above 65. If she continues to do well not requiring any further vasopressors, would remove her femoral triple lumen at that time when she has peripheral IV access. - The patient does continue to report some difficulty with mucous clearance. She is using Albuterol with saline nebulizer, but has not been compliant with the Acapella device or the incentive spirometer due to chest pain. She was given Toradol, which she states is helping, but she also reports the other pain medication that helps is Dilaudid. She states Percocet or morphine caused her to feel too drowsy and lightheaded. We will therefore start her on Dilaudid p.r.n. for pain control to help encourage increased use of the Acapella device and incentive spirometer for mucous clearance. She does have improvement in her lung sounds on exam today. - Will also start a percussion vest to help with mucous clearance. She does have bronchiectasis chronically and a history of a chronic cough - Will continue with prednisone 40 mg daily for likely a five day course for acute exacerbation. - Will continue to monitor O2 sats. She has been weaned off of nasal cannula oxygen, but will need to assess her requirements with exertion prior to discharge. - The patient does have some suspicion for metastatic spread on her CT of the chest done on admission. 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 Zepeda that she can follow-up with as an outpatient. She would likely need further evaluation such as a PET CT. 3. Deep vein thrombosis (DVT) prophylaxis with Lovenox. 4. Code status: FULL CODE. Please do not hesitate to call for any further questions or concerns. TOTAL CRITICAL CARE TIME: Not including procedures approximately 40 minutes.
--- NOTE | 2020-10-14 18:51 | IPNPDOC ---
Date Seen The patient was seen on 10/14/20. Progress Note SUBJECTIVE: Genesis was seen and examined this morning while lying in her ICU bed. She was weaned off levo fed this morning at 7 AM and has maintained appropriate pressures. Since that time. She continues with IV Zosyn. Oral prednisone was initiated yesterday by the pulmonology service. Per nursing, she effectively is refusing to eat any hospital foods and is instead mostly eating food brought in by [employer]. She has been unable to use her incentive spirometry due to persistent pleuritic chest pain, although the pain has improved today from yesterday with the addition of Toradol. The pain remains centered over her left flank. She had her first bowel movement yesterday afternoon and has since had 2 more. She is urinating without any issues. She denies any current or overnight fever, chills, night sweats, chest pain, palpitations, abdominal pain, nausea, or vomiting. OBJECTIVE PHYSICAL EXAMINATION: VITAL SIGNS: Please see below. GENERAL: Very thin, middle-aged female. No acute distress. Alert and oriented 3. She does not maintain good eye contact and appears almost apath etic. HEENT: Normocephalic, atraumatic. Noninjected, anicteric sclera. ORAL CAVITY: Moist mucous membranes. No frontal erythema or exudate appreciated. CARDIOVASCULAR: Tachycardic rate, regular rhythm. Normal S1, S2. No murmurs or rubs are appreciated. RESPIRATORY: Overall, she sounds significantly improved from yesterday. Bibasilar crackles are still present but are reduced from yesterday's exam. Bibasilar crackles are more prominent over the left base with decreased breath sounds over the right base. There are some scattered rhonchi and no appreciated wheezing, these are significant improvements are yesterday. She continues to be mildly tachypneic with diminished tidal volume. ABDOMINAL: Soft, very thin abdomen with no tenderness or distention. No rigidity appreciated. Normoactive bowel sounds throughout. No hepatosplenomegaly appreciated. EXTREMITIES: Very thin extremities with no pitting edema or signs of cyanosis. There were no areas of erythema or wounds appreciated on visualization of all extremities. NEUROLOGICAL: Alert and oriented 3. No focal deficits appreciated. Non-dysa rthric speech. PSYCHOLOGICAL: She is somewhat apathetic during the exam, not making great eye contact while being spoken to, but responds appropriately. LABORATORY DATA, IMAGING STUDIES, MICROBIOLOGY: Please see below. ASSESSMENT AND PLAN: This is a 60yo f w/ notable h/o locally advanced non-small cell lung cancer of the right lung dx in 2016 s/p chemotherapy and radiation plus 1 year immunother apy completed 2 months ago w/ surveillance imaging in 06/2020 showing no POD by Dr. Meade in clinic, pericardial effusion, right empyema, chronic left pleural effusion, chronic right lung atelectasis, radiation, serositis, hypothyroidism, COPD, smoker, recurrent tonsillitis, and recurrent pneumonia who presented to the ED on 10/12/20 c/o left-sided chest pain and shortness of breath over the past 2-3 days, who was admitted to the ICU due to septic shock, likely secondary to postobstructive pneumonia with hypotension along with concern for disease progression as 3 new nodules noted in the right lung. His place of antibiotics as well as levo fed, and was subsequently weaned off of levophed on the morning of 10/14.she was then downgraded to MedSurg with telemetry continue on antibiotics. #Postobstructive vs aspiration pneumonia was resolved septic shock -White count continues to down trend. Patient was afebrile. Continuing on Zosyn day #2. Has received 3 total days of antibiotics (day #1, received doxycycline and ceftriaxone). -Was weaned off of Levophed at 7 AM this morning. In the time since, she has maintained adequate pressures. -She was downgraded to MedSurg with telemetry after maintaining her pressures throughout the shift today. -10 year to impress upon patient the importance of using the incentive spirometry. Unfortunately, due to pleuritic chest pain, she has not been using it. #Pasteurella bacteremia -2 blood cultures from 10/12 grew gram-negative rods and return with culture of Pasteurella. Patient does own a cat at home and reports a cat at times will bite the back of her legs. No bite wounds appreciated on visualization today. -She continues on day #3 of antibiotics overall and day #2 of Zosyn, which covers gram negatives. -Repeat blood cultures from yesterday (10/13) are preliminarily showing no growth after 24 hours. #Adenocarcinoma of the right lung with likely progression of disease -Follows with Dr. Corazon Meade with [facility]. Most recently seen in June 2020 with surveillance scans showing no progression of disease. Unfortunately, imaging upon admission shows 3 new 170 or nodules on the right lung. Have discussed this update with Dr. Meade, who will be seeing the patient in the clinic later this month (on ) -Was given information about her new imaging findings that were suggestive of 3 new nodules in her right lung; she has verbalized understanding #Hypothyroidism -Her thyroid hormone was elevated 2 days ago on labs and her home levothyroxine dose was decreased from 25 mcg #COPD -Seeding both albuterol nebulizers and saline nebulizers. There could be an element of COPD exacerbation in the setting of pneumonia with likely new progression of malignant disease. Also continuing with her Symbicort. -The pulmonology service has also been consulted and initiated oral prednisone yesterday. -She has been saturating well on room air throughout today shift. #Left lateral chest wall pain -Much improved pain level today after starting Toradol yesterday #Iron deficiency anemia -H&H slightly decreased to 10 today. Overall, this remains relatively stable. -Her home ferrous sulfate was continued -We'll continue to monitor on repeat labs #Deconditioning in the setting of recurrent pneumonia and new progression of malignancy -PT, OT has been ordered, although patient is refuses in the past. #DVT prophylaxis: sc lovenox DISPOSITION: She has been downgraded out of the ICU to [facility] with telemetry and has been off of the Levophed since 7 AM. Continuing with Zosyn and anticipated discharge in the next couple days. VS, I&O, 24H, Fishbone Vital Signs/I&O Vital Signs Date Time Temp Pulse Resp B/P (MAP) Pulse Ox O2 Delivery O2 Flow Rate FiO2 10/14/20 17:52 18 10/14/20 17:07 97.9 115 135/79 (97) 93 Room Air 10/13/20 04:00 2.0 10/12/20 20:23 28 I&O- Last 24 Hours up to 6 AM 10/14/20 05:59 Intake Total 644 ml Output Total 750 ml Balance -106 ml Laboratory Data 24H LABS Laboratory Tests 2 10/14/20 05:32: Nucleated Red Blood Cells % (auto) 0.0, Anion Gap 7L, Glomerular Filtration Rate > 60.0, Calcium Level 8.4L, Magnesium Level 2.0 CBC/BMP Laboratory Tests 10/14/20 05:32 Microbiology Microbiology 10/13/20 Blood Culture - Preliminary, Resulted No growth after 24 hours . All specim... 10/13/20 Blood Culture - Preliminary, Resulted No growth after 24 hours . All specim... 10/12/20 Gram Stain - Final, Resulted 10/12/20 Sputum Culture, Resulted Pending 10/12/20 Blood Culture - Final, Complete Pasteurella Multocida 10/12/20 Respiratory Virus Panel (PCR) ([facility]) - Final, Complete 10/12/20 Blood Culture - Final, Complete Pasteurella Multocida GME ATTESTATION GME ATTESTATION My faculty preceptor for this patient encounter was physically present during the encounter and was fully available. All aspects of the patient interview, examination, medical decision making process, and medical care plan development were reviewed and approved by the faculty preceptor. The faculty preceptor is aware and concurs with the plan as stated in the body of this note and will attest to such by his/her cosignature. ATTENDING NOTE I, Meño Collier, have independently examined this patient and performed my own physical exam, as well as reviewed the documentation and edited where necessary. I have discussed in detail with the resident / student the findings and plan of treatment as documented by the resident / student and edited their note. I agree with their findings and treatment plan and have edited their documentation. I will continue to follow the patient during this hospital stay. CLINT MACKEY D.O. Oct 14, 2020 18:51 MEÑO COLLIER MD Oct 15, 2020 07:02
[2020-10-15] MEDS: HYDROmorphone 2 MG TAB PO PRN ×2 (03:11→09:41)
[2020-10-15] MEDS: PIPERACILLIN/TAZOBACTAM SOD 3.375 GM in D5W MINI-BAG PLUS 50 ML IV SCH ×2 (03:11→09:31)
[2020-10-15] MEDS: LEVOTHYROXINE 25MCG TABLET (0.025MG) PO SCH (05:31)
[2020-10-15 06:00] VITALS: BP_SYST 126
[2020-10-15 06:11] LABS: HEMATOCRIT 30.7 % (36.0-47.0); HEMOGLOBIN 9.9 g/dl (12.0-15.5); MEAN CORPUSCULAR HEMOGLOBIN 28.7 pg (27.0-33.0); MEAN CORPUSCULAR HGB CONC 32.2 g/dl (32.0-36.5); PLATELET COUNT, AUTOMATED 154 10^3/uL (150-450); RED BLOOD COUNT 3.45 10^6/uL (4.00-5.40); WHITE BLOOD COUNT 8.4 10^3/uL (4.0-10.0)
[2020-10-15 06:30] LABS: BLOOD UREA NITROGEN 21 MG/DL (7-18); CALCIUM LEVEL 8.7 MG/DL (8.5-10.1); CARBON DIOXIDE LEVEL 24 MEQ/L (21-32); CHLORIDE LEVEL 108 MEQ/L (98-107); CREATININE FOR GFR 0.54 MG/DL (0.55-1.30); GLOMERULAR FILTRATION RATE > 60.0 (>51); GLUCOSE, FASTING 102 MG/DL (70-100); MAGNESIUM LEVEL 2.2 MG/DL (1.8-2.4); POTASSIUM SERUM 3.3 MEQ/L (3.5-5.1); SODIUM LEVEL 139 MEQ/L (136-145)
[2020-10-15] MEDS: SYMBICORT 160/4.5MCG INHALER 6GM INH SCH (07:29)
[2020-10-15] MEDS ORDERED: POTASSIUM CHLORIDE 10 MEQ SR TABLET PO ONE (07:30)
[2020-10-15] MEDS: ALBUTEROL SULFATE 2.5 MG/0.5 ML INH NEB SOLN INH SCH (07:31)
[2020-10-15] MEDS: SODIUM CHLORIDE 0.9% 3ML NEB SOLUTION FOR INHALATION INH SCH (08:00)
[2020-10-15] MEDS: ENOXAPARIN 30MG/0.3ML SYRINGE (J1650 PER 10MG) SC SCH ×2 (09:00→09:33)
[2020-10-15] MEDS: predniSONE 20 MG TAB PO SCH (09:31)
[2020-10-15] MEDS ORDERED: PROA1AER2 INH (09:51)
[2020-10-15] MEDS ORDERED: AUGM875T28 PO (09:51)
[2020-10-15] MEDS ORDERED: PRED10TA2 PO (09:51)
[2020-10-15] MEDS ORDERED: OXYC1TAB23 PO (09:51)
[2020-10-15 13:08] LABS: BODY FLUID CULTURE Not indicated. (.); LEGIONELLA ANTIGEN URINE Negative (Negative); ORGANISM ID Not indicated. (.); SPECIMEN SOURCE Urine (.); URINE STREP PNEUMONIAE ANTIGEN Negative (Negative)
--- NOTE | 2020-10-15 19:26 | DS.PDOC ---
Discharge Summary General Date of Admission Oct 12, 2020 at 13:31 Date of Discharge 10/15/2020 Attending Physician: MEÑO COATES MD Specialist/Consultants Involve: DARIO VALDIVIA MD Discharge Summary PROCEDURES PERFORMED DURING STAY: Triple-lumen catheter via right femoral vein ADMITTING DIAGNOSES: Pneumonia with septic shock Adenocarcinoma of right upper lung Elevated BNP Hypothyroidism Anemia likely secondary to iron deficiency DISCHARGE DIAGNOSES: Postobstructive pneumonia versus aspiration pneumonia with resolved septic shock Adenocarcinoma of right upper lung with new imaging evidence of progression of disease COMPLICATIONS/CHIEF COMPLAINT: Lung Cancer, Pneumonia, Sob, Sirs. HISTORY OF PRESENT ILLNESS: Genesis is a 60-year-old female w/ notable PMHx of locally advanced right-sided non-small cell lung cancer status post radiation, chemotherapy, as well as 1 year of maintenance immunotherapy, previous empyema, recurrent tonsillitis, recurrent pneumonia with chronic right lobe atelectasis, COPD, and hypothyroidism who presented to the ED on 10/12/20 complaining of progressively increasing shortness of breath with left-sided chest wall pain over the past 2-3 days. She denied any associated substernal pain, vomiting, abdominal pain, nausea, constipation, diarrhea, hematemesis, or hemoptysis. In the ED, she was saturating well on room air, but tachycardic with rates in the high 120s. She was also febrile with a temperature of 101.4 and had a pressure of 94/67. Imaging showed right lower lobe interstitial opacities concerning for pneumonia versus lymphangitic involvement and recurrence of malignancy on CT chest, continued right lower lobe atelectasis, and loculated pleural fluid in the anterior right lower lobe that had actually improved from prior imaging. In addition, small left pleural effusion was again present and improved from prior imaging. What was concerning as well, was there were 3, 1 cm nodules that were new between the posterior ninth and 10th ribs on the right side. Initial lactate was 3.3 with WBC 7.8, hemoglobin 13.7, BNP 689, platelets 245, potassium 5, sodium 138, creatinine 0.73, with troponins and LFTs within normal limits. HOSPITAL COURSE: In the setting of her fever with the progressive shortness of breath over the past few days as well as a right lower lobe interstitial opacities and hypotension, she was given sepsis bolus fluid hydration, had blood cultures drawn, and empiric ceftriaxone was initiated for sepsis likely secondary to pneumonia. She received morphine for chest wall pain and then subsequently developed further hypotension and was given a 1 L bolus with admission to the ICU. Later into the shift she was not responding to fluids and developed septic shock. The hospitalist service contacted Dr. Valdivia of the circuit designer service to place a triple lumen catheter through the femoral vein. Prior to this being placed, Levophed was started peripherally. Patient was on Levophed from the evening of 10/12 through the morning of 10/14. She was gradually weaned over the course of the day and 10/13 and ultimately the Levophed was removed at 7 AM on 10/14. Initial blood cultures both grew Pasteurella. With the bacteremia and continued rhonchi and wheezing that may have indicated coterminous exacerbation of her baseline COPD, circuit designer service switched antibiotic coverage to Zosyn, stopping both the ceftriaxone and doxycycline. [employer] Worker service, started oral prednisone, and patient was also receiving nebulized albuterol and saline. Over the course of next day and a half, patient's breathing improved and she was able to saturate adequately on room air. She remained normotensive for 24+ hours off of vasopressors, and repeat blood cultures drawn on 10/13 were negative. In deyvi tion, her thyroid hormone levels were elevated and thus her home levothyroxine dose was decreased to 25 g per day. Ultimately, she was discharged with 10 days of oral Augmentin to complete 14 total days of antibiotic coverage in the setting of her bacteremia. She was also given a prednisone taper after receiving 3 days of oral 40 mg prednisone. She was instructed to follow-up with her primary care provider, as well as pulmonology within the next week. She has a previously scheduled 10/24 outpatient appointment with her oncologist, Dr. Corazon Meade. In addition, during her stay, the hospital service, did reach out to Dr. Meade to make her aware that the patient likely has had progression of her malignancy. DISCHARGE MEDICATIONS: Please see below. ALLERGIES: Please see below. PHYSICAL EXAMINATION ON DISCHARGE: VITAL SIGNS: Please see below. GENERAL: Very thin, middle-aged female. No acute distress. Alert and oriented 3. She does not maintain good eye contact and appears almost apathetic. HEENT: Normocephalic, atraumatic. Noninjected, anicteric sclera. ORAL CAVITY: Moist mucous membranes. No frontal erythema or exudate appreciated. CARDIOVASCULAR: Tachycardic rate, regular rhythm. Normal S1, S2. No murmurs or rubs are appreciated. RESPIRATORY: Overall, she sounds significantly improved from yesterday. Bibasilar crackles are still present but are reduced from yesterday's exam. Bibasilar crackles are more prominent over the left base with decreased breath sounds over the right base. There are some scattered rhonchi and no appreciated wheezing, these are significant improvements are yesterday. She continues to be mildly tachypneic with diminished tidal volume. ABDOMINAL: Soft, very thin abdomen with no tenderness or distention. No rigidity appreciated. Normoactive bowel sounds throughout. No hepatosplenomegaly appreciated. EXTREMITIES: Very thin extremities with no pitting edema or signs of cyanosis. There was no erythema or wounds appreciated on visualization of all extremities. NEUROLOGICAL: Alert and oriented 3. No focal deficits appreciated. Non- dysarthric speech. PSYCHOLOGICAL: She is somewhat apathetic during the exam, not making great eye contact while being spoken to, but responds appropriately. LABORATORY DATA: Please see below. IMAGING: Chest x-ray, 10/12/20 FINDINGS: There is a large right hilar and perihilar is soft tissue fullness consistent with patient's history of malignancy. The right lung is largely opacified and there is volume loss the right hemithorax. Pleural opacity is seen in the right base as well. There is blunting of the left lateral pleural angle. These findings on the right are somewhat more pronounced than on the 26 May 2020 prior study although not new. Pleural angle blunting on the left is unchanged. No new infiltrate is seen. IMPRESSION: There is some progressive volume loss in right hemithorax with fullness in the right hilar region. Blunting of the left lateral pleural angle is again noted unchanged. CTA, 10/12/20 FINDINGS: There is good opacification in the pulmonary arterial tree. There is no evidence of vessel cut off or filling defect to suggest pulmonary embolus. Homogeneous opacity is seen in the thoracic aorta. There is no evidence of aneurysm or dissection. Lung window settings demonstrate a small quantity of loculated pleural fluid on the right anteriorly. This is a little less prominent than the air and fluid collection in this location on the April 14, 2020 study. There is partial collapse with air bronchograms in the perihilar region of the right lung and some chronic consolidation is seen at the upper aspect of the right upper lobe consistent with lobar collapse. There is pleural thickening and interstitial and alveolar opacification of the remaining right lower lobe. This pattern is new. Differential possibilities include superimposed pneumonia and lymphangitis neoplastic spread. The left lung shows a small quantity of fissural fluid and there is left pleural fluid posteriorly. The left pleural effusion is somewhat improved compared to the amount of pleural fluid on the left on April 14, 2020. No adrenal mass lesion is observed. The visualized upper abdominal structures are otherwise unremarkable. Bone window settings show no bony destructive lesion. There are 3 new 1 cm soft tissue nodules in the intercostal fat between the posterior right 9th and 10th ribs. These may be small soft tissue metastases. They do not appear to have been present previously. No other extra thoracic soft tissue nodule is appreciated. IMPRESSION: No CT evidence of pulmonary embolus. New alveolar/interstitial opacifications in the remaining right lower lobe. Superimposed pneumonia versus lymphangitis spread. Chronic collapse right upper lobe. Loculated pleural fluid anteriorly on the right is somewhat improved. A small left pleural effusion is noted also somewhat improved from the April 14, 2020 study. There are 3 linearly aligned 1 cm soft tissue nodules in the inner costal fat between the posterior 9th and 10th ribs on the right which may be a small new soft tissue metastases. Chest x-ray, 10/13/20 FINDINGS: Increased, near complete opacification of the right hemithorax suggesting effusion and consolidations is appreciated along with left lower lobe opacities and small left pleural effusion. No pneumothorax. Visualized cardiac silhouette is normal. Skeletal structures are intact. IMPRESSION: 1. Increased near complete opacification of the right hemithorax suggesting pleural fluid and underlying pulmonary opacities. 2. Increased left lower lobe opacities and small pleural effusion. PROGNOSIS: Fair ACTIVITY: As tolerated DIET: High-calorie diet in the setting of her low BMI and recurrence of malignancy. DISPOSITION: 01 Home, Self-Care. DISCHARGE INSTRUCTIONS & ITEMS TO FOLLOWUP ON ON OUTPATIENT: -Follow-up with primary care provider and pulmonology within the next week as outpatient. -Follow-up with oncologist, Dr. Corazon Meade at previously arranged 10/24 appointment. -Take 10 days total of oral Augmentin to complete 14 days of antibiotics for bacteremia -Take incomplete prednisone taper -Please call to confirm/schedule appointments. -Please comply with treatment plan and medications and return to the emergency department if you are to experience any problems. DISCHARGE CONDITION: Stable TIME SPENT ON DISCHARGE: 37 minutes. Vital Signs/I&Os Vital Signs Date Time Temp Pulse Resp B/P (MAP) Pulse Ox O2 Delivery O2 Flow Rate FiO2 10/15/20 11:02 18 Room Air 10/15/20 06:00 98.4 98 126/ (42) 90 10/13/20 04:00 2.0 10/12/20 20:23 28 I&O- Last 24 Hours up to 6 AM 10/15/20 05:59 Intake Total 280 ml Output Total 670 ml Balance -390 ml Laboratory Data Labs 24H Laboratory Tests 2 10/15/20 05:59: Nucleated Red Blood Cells % (auto) 0.0, Anion Gap 7L, Glomerular Filtration Rate > 60.0, Calcium Level 8.7, Magnesium Level 2.2 CBC/BMP Laboratory Tests 10/15/20 05:59 Microbiology Microbiology 10/13/20 Blood Culture - Preliminary, Resulted No Growth after 48 hours. All Specime... 10/13/20 Blood Culture - Preliminary, Resulted No Growth after 48 hours. All Specime... 10/12/20 Gram Stain - Final, Complete 10/12/20 Sputum Culture - Final, Complete 10/12/20 Blood Culture - Final, Complete Pasteurella Multocida 10/12/20 Respiratory Virus Panel (PCR) ([facility]) - Final, Complete 10/12/20 Blood Culture - Final, Complete Pasteurella Multocida Discharge Medications Scheduled Amoxicillin/Potassium Clav (Augmentin 875-125 Tablet) 1 Each Tablet, 1 TAB PO BID Budesonide/Formoterol Fumarate (Budesonide-Formoterol 160-4.5) 10.2 Gm Hfa.aer.ad, 2 PUFFS INH BID, (Reported) Levothyroxine Sodium (Synthroid) 75 Mcg Tablet, 75 MCG PO DAILY, (Reported) Prednisone (Prednisone) 10 Mg Tablet, 10 MG PO TAPER Take 4 tabs daily x 3 days, then 3 tabs daily x 3 days, then 2 tabs daily x 3 days, then 1 tab daily x 3 days and stop Scheduled PRN Albuterol Sulfate (Proair Respiclick) 90 Mcg Aer.pow.ba, 2 PUFF INH Q4-6HP PRN for shortness of breath Oxycodone HCl/Acetaminophen (Oxycodone-Acetaminophen 5-325) 1 Each Tablet, 1 TAB PO TIDP PRN for pain Allergies Coded Allergies: No Known Allergies (Unverified , 05/05/20) GME ATTESTATION GME ATTESTATION My faculty preceptor for this patient encounter was physically present during the encounter and was fully available. All aspects of the patient interview, examination, medical decision making process, and medical care plan development were reviewed and approved by the faculty preceptor. The faculty preceptor is aware and concurs with the plan as stated in the body of this note and will attest to such by his/her cosignature. ATTENDING NOTE I, Meño Coates, have independently examined this patient and performed my own physical exam, as well as reviewed the documentation and edited where necessary. I have discussed in detail with the resident / student the findings and plan of treatment as documented by the resident / student and edited their note. I agree with their findings and treatment plan and have edited their documentation. I will continue to follow the patient during this hospital stay. time spent on discharge 35 minutes CLINT MACKEY D.O. Oct 15, 2020 19:26 MEÑO COATES MD Oct 15, 2020 21:33
[2020-10-15] MEDS ORDERED: LEVO25TA5 PO (21:35)
== END 2020-10-15 12:49 | disposition home or self-care (01) | DRG 720 ==
LOC: EDBD 08:51 → M ED 08:51 → M ED INP 13:31 → M ICU 15:45 → M MSPAV 10-14 16:57
PROVIDERS: ADMIT Internal Medicine; ATTEND Internal Medicine
PROC: 06HM33Z Insertion of Infusion Device into Right Femoral Vein, Percutaneous Approach (ICD-10-PCS; principal; 2020-10-12)
DX: A41.59 Other Gram-negative sepsis (principal); J96.01 Acute respiratory failure with hypoxia; R65.21 Severe sepsis with septic shock; J90 Pleural effusion, not elsewhere classified; E87.2 Acidosis; J18.9 Pneumonia, unspecified organism; J44.0 Chronic obstructive pulmonary disease with (acute) lower respiratory infection; J44.1 Chronic obstructive pulmonary disease with (acute) exacerbation; C34.11 Malignant neoplasm of upper lobe, right bronchus or lung; D50.9 Iron deficiency anemia, unspecified; E03.9 Hypothyroidism, unspecified; J98.11 Atelectasis; Z87.891 Personal history of nicotine dependence; Z92.3 Personal history of irradiation; Z92.21 Personal history of antineoplastic chemotherapy; Z79.899 Other long term (current) drug therapy

== ENCOUNTER → 2020-11-10 | Outpatient (CLI) | payer OTHER ==
[~2020-11-10] MED LIST changes: +AUGM875T28 PO; +BUDE10.2 INH; +COVI2.5V IM; +LEVO25TA5 PO; +PROA1AER2 INH
== END ==
LOC: M PLARAD 09:24
PROVIDERS: ATTEND Internal Medicine Pulmonary Disease
DX: C34.11 Malignant neoplasm of upper lobe, right bronchus or lung (principal)

== ENCOUNTER → 2020-11-19 | Outpatient (CLI) | payer OTHER ==
[~2020-11-19] MED LIST changes: +EUTH75TA PO; +HYDR1LIQ PO; +LIDOCAINE 1% MDV 20ML VIAL As Ordered ONE; +PROAAER10 INH; +SODIUM BICARBONATE 8.4% INJ 50MEQ 50 ML VIAL As Ordered ONE; +SYMB16INH INH; +[UNRECOGNIZED DRUG - CODE] PO
[2020-11-19 08:45] VITALS: BP 100/55
--- NOTE | 2020-11-20 12:03 | REP ---
INDICATION: NODULE BETWEEN 9TH . COMPARISON: CT angio chest dated 10/12/2020 TECHNIQUE: The procedure is performed by Tamara Pinedo [facility], under the direct supervision of Dr. Quijano. The risks and benefits of the procedure were explained to the patient and informed consent was obtained both orally and written. Directly prior to the start of the procedure, a formal timeout was done in the exam room. Using CT guidance the 3 linearly aligned soft tissue nodules in the intercostal fat between the posterior 9th and 10 ribs was localized. FINDINGS: Once acquired an intense image review was done by the medical team. There appeared to be about a 3 mm window between the soft tissue nodules and an intercostal artery. Another concern was a lack of subcutaneous fat to hold the needle in place while a biopsy was attempted. After a lengthy discussion with Dr. Quijano, it was decided that the biopsy posed a significant risk of hemothorax or pleural hematoma from injury to the intercostal artery. Accordingly, the procedure was canceled. The patient was talked to at length and agreed with the decision made. IMPRESSION: Image acquisition of posterior intercostal nodules, upon review of the images it was determined that the nodules were too close to the intercostal artery to proceed safely. The biopsy was not performed. <Electronically signed by Tamara Pinedo > 11/20/20 1053 <Electronically signed by Segun Quijano > 11/20/20 1200
== END ==
LOC: M IRPRO 08:35
PROVIDERS: ATTEND Internal Medicine Medical Oncology
DX: R22.2 Localized swelling, mass and lump, trunk (principal); Z53.8 Procedure and treatment not carried out for other reasons

== ENCOUNTER → 2020-12-08 | Outpatient (CLI) | payer OTHER ==
[~2020-12-08] MED LIST changes: -LIDOCAINE 1% MDV 20ML VIAL As Ordered ONE; -SODIUM BICARBONATE 8.4% INJ 50MEQ 50 ML VIAL As Ordered ONE
--- NOTE | 2020-12-09 09:54 | REP ---
INDICATION: RESTAGING LUNG CANCER MALIGNANT NEOPLASM C34.11. COMPARISON: The prior PET-CT examinations have been reviewed the latest of which is dated 12/05/2018. TECHNIQUE: After the intravenous administration of 8.45 mCi of FDG 18 triplane whole-body PET-CT was performed from the skull base to the mid thigh. FINDINGS: Once again, there is hypermetabolic activity seen in the chronically collapsed right lung apex and having SUV values similar to those seen on the 12/05/2018 exam with a maximum of 3.25. The distribution of this hypermetabolic activity also appears stable. The well-known previously explored right paramediastinal supracardiac hypermetabolic activity is unchanged. The small pleural fluid collections seen on the prior exam have again decreased. There are no other areas of abnormal hypermetabolic activity seen in the neck, chest, abdomen, or pelvis. IMPRESSION: No significant change in the hypermetabolism seen on the prior exam as described above. <Electronically signed by Sunny Black > 12/09/20 5535
== END ==
LOC: M PLARAD 10:02
PROVIDERS: ATTEND Internal Medicine Pulmonary Disease
DX: C34.11 Malignant neoplasm of upper lobe, right bronchus or lung (principal)
CPT/HCPCS: 78815; A9552

== ENCOUNTER → 2021-01-05 | Outpatient (CLI) | payer OTHER ==
[~2021-01-05] MED LIST changes: +LEVO500T3 PO; +LEVO50TA5 PO
[2021-01-05 18:52] LABS: BASO % 0.4 % (0.0-1.0); EOS # 0.1 10^3/uL (0.0-0.5); EOS % 1.3 % (0.0-3.0); HEMOGLOBIN 12.2 g/dl (12.0-15.5); LYMPH # 0.7 10^3/uL (1.5-5.0); LYMPH % 9.2 % (24.0-44.0); MEAN CORPUSCULAR HEMOGLOBIN 29.8 pg (27.0-33.0); MEAN CORPUSCULAR HGB CONC 32.1 g/dl (32.0-36.5); MEAN CORPUSCULAR VOLUME 92.9 fl (80.0-96.0); MONO # 0.6 10^3/uL (0.0-0.8); NEUTROPHILS # 6.4 10^3/uL (1.5-8.5); NEUTROPHILS % 80.6 % (36.0-66.0); PLATELET COUNT, AUTOMATED 257 10^3/uL (150-450); RED BLOOD COUNT 4.09 10^6/uL (4.00-5.40); WHITE BLOOD COUNT 7.9 10^3/uL (4.0-10.0)
[2021-01-05 19:40] LABS: ALBUMIN 3.2 GM/DL (3.2-5.2); ALT/SGPT 20 U/L (12-78); BILIRUBIN,TOTAL 0.3 MG/DL (0.2-1.0); BLOOD UREA NITROGEN 7 MG/DL (7-18); CALCIUM LEVEL 9.3 MG/DL (8.5-10.1); CARBON DIOXIDE LEVEL 26 MEQ/L (21-32); CHLORIDE LEVEL 101 MEQ/L (98-107); CREATININE FOR GFR 0.56 MG/DL (0.55-1.30); FERRITIN 342 NG/ML (8-252); FREE T4 1.88 NG/DL (0.76-1.46); GLOMERULAR FILTRATION RATE > 60.0 (>51); GLUCOSE, FASTING 100 MG/DL (70-100); IRON (FE) 33 UG/DL (50-170); PERCENT SATURATION 20.2 % (13.2-45.0); POTASSIUM SERUM 3.4 MEQ/L (3.5-5.1); SODIUM LEVEL 137 MEQ/L (136-145); THYROID STIMULATING HORMONE 0.567 uIU/ML (0.358-3.740); TOTAL IRON BINDING CAPACITY 163 UG/DL (250-450); TOTAL PROTEIN 7.4 GM/DL (6.4-8.2)
== END ==
LOC: M LAB 18:02
PROVIDERS: ATTEND Internal Medicine Medical Oncology
DX: C34.90 Malignant neoplasm of unspecified part of unspecified bronchus or lung (principal)

== ENCOUNTER 2021-04-09 00:30 | Inpatient (IN) | payer OTHER ==
[~2021-04-09] VITALS: Ht 160 cm; Wt 43.0 kg
[2021-04-09] VITALS (30 sets, daily range): BP systolic 60–151; BP diastolic 45–76
--- OUTSIDE RECORDS SUMMARY | 2021-04-09 00:34 | CCD ---
Continuity of Care Document (CCD) Created on: 02/18/2021 Genesis Elder External Reference #: [id number] : [id number] Sex: Female Author Author Genesis WALSH M.D. Organization Unknown Address [address], [address] [place] [address] Phone [phone] Care Team Providers Care Procurement Agent Name Role Phone Daisy Griffith M.D. AUTM [phone] Seng Harman M.D. AUTM [phone] Roberto Ghosh M.D. AUTM [phone] AUT[facility] Unavailable Edmund Zepeda D.O. AUTM [phone] Problems Active Problems Provider Date Pulmonary function studies abnormal Edmund Zepeda D.O. Onse t: 05/11/2017 Abnormal findings on diagnostic imaging of lung Edmund Zepeda D.O. Onset: 05/11/2017 Malignant neoplasm of upper lobe, bronchus or lung Edmund gallagher D.O. Onset: 05/16/2017 Chronic obstructive lung disease Edmund Zepeda D.O. Onset: 06/15/2017 Acute maxillary sinusitis Edmund Zepeda D.O. Onset: 018 Ex-smoker Edmund Zepeda D.O. Onset: 02/21/2018 Disorder of pericardium Edmund Zepeda D.O. Onset: 8 Pleural effusion, not elsewhere classified Edmund Zepeda D.O. Onset: 05/31/2018 Cough Edmund Zepeda D.O. Onset: 09/05/2018 Shoulder joint pain Edmund Zepeda D.O. Onset: 12/04/2018 Social History Type Date Description Comments Sex Unknown Smokeless Tobacco Never Used Smokeless Tobacco ETOH Use Denies alcohol use Tobacco Use Start: 06/27/76 End: 06/27/06 Patient is a forme r smoker 10-15 cigarettes daily x 30 years Recreational Drug Use Denies Drug Use Smoking Status Reviewed: 12/16/20 Patient is a former smoker 10 -15 cigarettes daily x 30 years Allergies, Adverse Reactions, Alerts Description No Known Drug Allergies Medications Active Medications SIG Qnty Indications Ordering Provide r Date Azelastine HCL (Nasal) 0.1% Soluti on 1 spray each nostril bid 90ml C34.11 Lizzie BellaO. 12/17/19 Virtussin A/C 100-10mg/5ML Solutio n 5milliliters by mouth every night as needed Reference #: [id number] 150ml R91.8 Lizzie BellaOSiri 12/16/2020 Openbuilds Air Purifier/Hepa (Device) M isc use daily Lizzie BellaOSiri 04/14/2020 Albuterol Sulfate 0.63mg/3ML Nebul izer 1 vial via nebulizer as needed 360ml R05 Lizzie BellaOSiri J44.9 Sodium Chloride 3% Nebulizer 1 vial nebulzied 2-3 times a day as needed, administer with albuterol in nebulizer 360ml J44.9 Lizzie BellaOSiri 12/03/2019 Levothyroxine Sodium 50mcg Capsule s 1cap qd Unknown Symbicort 160-4.5mcg/Act Aerosol 2 puff twice a day 10.200gm Lizzie BellaO. History Medications Ketorolac Tromethamine 10mg Tablet s one tab po every four hour prn pain 45tabs C34.11 Lizzie BellaO. 10/20/2020 - 01/18/[address] 1 by mouth every day 30caps Lizzie BellaO. 10/20/2020 - Dilaudid 1mg/ml Liquid 1 milliliters every six hours as needed pain reference #: [id number] 120ml C34.11 Lizzie BellaO. 10/20/2020 - 01/18/2021 Immunizations CPT Code Status Date Vaccine Lot # [id number] Refused 05/16/2020 Afluria, Quadrivalent, 0.5ml , [facility]# [id number] Vital Signs Date Vital Result Comment 01/19/2021 10:06am BP Systolic 112 mmHg BP Diastolic 56 mmHg Height 59 inches 4'11" Weight 82.00 lb BMI (Body Mass Index) 16.6 kg/m2 [place] Body Weight 100 lb Weight 37.195 kg BSA (Body Surface Area) 1.26 m2 12/16/2020 3:31pm BP Systolic 100 mmHg BP Diastolic 70 mmHg Heart Rate 107 /min O2 % BldC Oximetry 96 % Body Temperature 95.9 F Height 59 inches 4'11" Weight 83.00 lb BMI (Body Mass Index) 16.8 kg/m2 [place] Body Weight 100 lb Weight 37.649 kg BSA (Body Surface Area) 1.27 m2 Results Description No Information Available Procedures Date Code Description Status 01/19/2021 78200 Office/Outpatient New Moderate M DM 45-59 Minutes Completed 12/16/2020 60749 Office/Outpatient Established Mo d MDM 30-39 Min Completed 10/20/2020 63105 Office/Outpatient Established Mo d MDM 30-39 Min Completed 10/14/2020 71661 Critical Care First 30-74 Minute s Completed 10/13/2020 16791 Critical Care First 30-74 Minute s Completed 10/12/2020 74986 Critical Care Addl 30 Min Comple curtis 10/12/2020 81885 Critical Care First 30-74 Minute s Completed 10/12/2020 79833 Ultrasound Guidance For Vascular Access Requiring Ultrasound Eval Completed 10/12/2020 34711 Insertion Of Non-John neled Centrally Inserted Central Venous [place] Completed Medical Devices Description No Information Available Encounters Type Date Location Provider Dx Diagnosis Office Visit 01/19/2021 9:20a [facility] Gastroenterology Sabra Walsh M.D. F45.8 Other somatoform disorders R09.89 Oth symptoms and signs invol ving the circ and resp systems Office Visit 12/16/2020 3:30p [facility] Pulmonary/Thoracic Edmund gunn D.O. C34.11 Malignant neoplasm of upper lobe, right bronchus or lung R91.8 Other nonspecific abnormal f inding of lung field J44.9 Chronic obstructive pulmonar y disease, unspecified Office Visit 10/20/2020 2:30p [facility] Pulmonary/Thoracic Edmund Se ars, D.O. C34.11 Malignant neoplasm of upper lobe, right bronchus or lung R91.8 Other nonspecific abnormal f inding of lung field J44.9 Chronic obstructive pulmonar y disease, unspecified J90 Pleural effusion, not elsewh ere classified Office Visit 10/14/2020 1:23a [facility] Pulmonary/Thoracic Amanda Kaiser M.D. A41.9 Sepsis, unspecified organism R65.21 Severe sepsis with septic sh ock J96.01 Acute respiratory failure wi th hypoxia J18.9 Pneumonia, unspecified organ ism Office Visit 10/13/2020 1:23a [facility] Pulmonary/Thoracic Amanda Kaiser M.D. A41.9 Sepsis, unspecified organism R65.21 Severe sepsis with septic sh ock J96.01 Acute respiratory failure wi th hypoxia J18.9 Pneumonia, unspecified organ ism Office Visit 10/12/2020 1:23a [facility] Pulmonary/Thoracic Amanda Kaiser M.D. 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 01/19/2021 R09.89 Feeling of lump in throat Cher Walsh M.D. 12/16/2020 C34.11 Malignant neoplasm of upper lobe , right bronchus or lung Edmund Sears, D.O. 12/16/2020 R91.8 Other nonspecific abnormal findi ng of lung field Edmund Sears, D.O. 12/16/2020 J44.9 Chronic obstructive pulmonary di sease, unspecified Edmund Sears, D.O. 10/20/2020 C34.11 Malignant neoplasm of upper lobe , right bronchus or lung Edmund Sears, D.O. 10/20/2020 R91.8 Other nonspecific abnormal findi ng of lung field Edmund Sears, D.O. 10/20/2020 J44.9 Chronic obstructive pulmonary di sease, unspecified Edmund Zepeda D.O. 10/20/2020 J90 Pleural effusion, not elsewhere classified Patience Bella.Karlee 10/14/2020 A41.9 Sepsis, unspecified organism Amanda Dominguez M.D. 10/14/2020 R65.21 Severe sepsis with septic shock Amanda Cain M.D. 10/14/2020 J96.01 Acute respiratory failure with h ypoxia Amanda Cain M.D. 10/14/2020 J18.9 Pneumonia, unspecified organism Amanda Cain M.D. 10/13/2020 A41.9 Sepsis, unspecified organism Amanda Dominguez M.D. 10/13/2020 R65.21 Severe sepsis with septic shock Amanda Cain M.D. 10/13/2020 J96.01 Acute respiratory failure with h ypAmanda Gray M.D. 10/13/2020 J18.9 Pneumonia, unspecified organism Amanda Cain M.D. 10/12/2020 A41.9 Sepsis, unspecified organism Amanda Dominguez M.D. 10/12/2020 R65.21 Severe sepsis with septic shock Amanda Cain M.D. 10/12/2020 J18.9 Pneumonia, unspecified organism Amanda Cain M.D. 10/12/2020 J47.9 Bronchiectasis, uncomplicated Amanda Blancas M.D. Plan of Treatment Future Appointment(s):* 03/27/2021 2:00 am - Subhash Walsh M.D. at [facility] * 04/01/2021 3:00 pm - Edmund Zepeda D.O. at [facility] Pulmonary/Thoracic Functional Status Description No Information Available Mental Status Description No Information Available Referrals Refer to Reason for Referral Status Appt Date Subhash Walsh M.D. request for consultation for upp er endoscopy Closed 01/19/2021 [facility] [address], [address] [place] [address] [phone] Radiology/Procedure 11488 Closed 12/08/2020 Radiology/Procedure 09702 Closed 10/12/2020
--- OUTSIDE RECORDS SUMMARY | 2021-04-09 00:34 | CCD | Continuity of Care Document ---
Author Author Genesis WALSH M.D. Organization Unknown Address [address], [address] [place] [address] Phone [phone] Care Team Providers Care Security Team Lead Name Role Phone Daisy Griffith M.D. AUT[facility] [phone] Seng Harman M.D. AUTM [phone] Roberto Ghosh M.D. AUTM [phone] AUTM Unavailable Edmund Zepeda D.O. AUTM [phone] Problems Active Problems Provider Date Pulmonary function [...] mouth every night as needed Reference #: [id number] 150ml R91.8 Lizzie BellaOSiri 12/16/2020 [employer]Monitor Air Purifier/Hepa (Device) M isc use daily [...] six hours as needed pain reference #: [id number] 120ml C34.11 Lizzie BellaO. 10/20/2020 - 01/18/2021 Immunizations CPT Code Status Date Vaccine Lot # [id number] Refused 05/16/2020 Afluria, Quadrivalent, 0.5ml , [facility]# [id number] Vital Signs Date Vital Result Comment 01/19/2021 10:06am Height 59 inches 4'11" [place] Body Weight 100 lb 12/16/2020 3:31pm BP Systolic 100 mmHg BP Diastolic 70 mmHg Heart Rate 107 /min O2 % BldC Oximetry 96 % Body Temperature 95.9 F Height 59 inches 4'11" Weight 83.00 lb BMI (Body Mass Index) 16.8 kg/m2 [place] Body Weight 100 lb Weight 37.649 kg BSA (Body Surface Area) 1.27 m2 Results Description No Information Available Procedures Date Code Description Status 12/16/2020 75850 Office/Outpatient Established Mo d MDM 30-39 Min Completed 10/20/2020 69130 Office/Outpatient Established Mo d MDM 30-39 Min Completed 10/14/2020 30449 Critical Care First 30-74 Minute s Completed 10/13/2020 87224 Critical Care First 30-74 Minute s Completed 10/12/2020 09301 Critical Care Addl 30 Min Comple curtis 10/12/2020 34098 Critical Care First 30-74 Minute s Completed 10/12/2020 43751 Ultrasound Guidance For Vascular Access Requiring Ultrasound Eval Completed 10/12/2020 56573 Insertion Of Non-John neled Centrally Inserted Central Venous [place] Completed Medical Devices Description No Information Available Encounters Type Date Location Provider Dx Diagnosis Office Visit 12/16/2020 3:30p [facility]Thoracic Edmund Se gunn, D.O. C34.11 Malignant neoplasm of upper lobe, right bronchus or lung R91.8 Other nonspecific abnormal f inding of lung field J44.9 Chronic obstructive pulmonar y disease, unspecified Office Visit 10/20/2020 2:30p [facility]/Thoracic Edmund Se velia, D.O. C34.11 Malignant neoplasm of upper lobe, right bronchus or lung R91.8 Other nonspecific abnormal f inding of lung field J44.9 Chronic obstructive pulmonar y disease, unspecified J90 Pleural effusion, not elsewh ere classified Office Visit 10/14/2020 1:23a [facility]Thoracic Amanda Kaiser M.D. A41.9 Sepsis, unspecified organism R65.21 Severe sepsis with septic sh ock J96.01 Acute respiratory failure wi th hypoxia J18.9 Pneumonia, unspecified organ ism Office Visit 10/13/2020 1:23a [facility] Amanda Kaiser M.D. A41.9 Sepsis, unspecified organism R65.21 Severe sepsis with septic sh ock J96.01 Acute respiratory failure wi th hypoxia J18.9 Pneumonia, unspecified organ ism Office Visit 10/12/2020 1:23a [facility] Amanda Kaiser M.D. A41.9 Sepsis, unspecified [...] di sease, unspecified Edmund Sears, D.O. 10/20/2020 J90 Pleural effusion, not elsewhere classified Edmund Sears, D.O. 10/14/2020 A41.9 Sepsis, unspecified organism Amanda Dominguez M.D. 10/14/2020 R65.21 Severe sepsis with septic shock Amanda Cain M.D. 10/14/2020 J96.01 Acute respiratory failure with h ypoxia Amanda Cain M.D. 10/14/2020 J18.9 Pneumonia, unspecified organism Amanda Cain M.D. 10/13/2020 A41.9 Sepsis, unspecified organism mAanda Domingeuz M.D. 10/13/2020 R65.21 Severe sepsis with septic shock Amanda Cain M.D. 10/13/2020 J96.01 Acute respiratory failure with h ypoxia Amanda Cain M.D. 10/13/2020 J18.9 Pneumonia, unspecified organism Amanda Cain M.D. 10/12/2020 A41.9 Sepsis, unspecified organism Amanda Dominguez M.D. 10/12/2020 R65.21 Severe sepsis with septic shock Amanda Cain M.D. 10/12/2020 J18.9 Pneumonia, unspecified organism Amanda Cain M.D. 10/12/2020 J47.9 Bronchiectasis, uncomplicated Amanda Blancas M.D. Plan of Treatment Future Appointment(s):* 04/01/2021 3:00 pm - Edmund Zepeda D.O. at [facility] Pulmonary/Thoracic Functional Status Description No Information Available Mental Status Description No Information Available Referrals Refer to Dr Reason for Referral Status Appt Date Subhash Walsh M.D. request for consultation for upp er endoscopy Scheduled 01/19/2021 [facility] [address], [address] [place] [id number] [phone] Radiology/Procedure 20478 Closed 12/08/2020 Radiology/Procedure 13242 Closed 10/12/2020
--- OUTSIDE RECORDS SUMMARY | 2021-04-09 00:35 | CCD ---
Author Author [facility] Organization [facility] Address Unknown Phone Unavailable Care Team Providers Care Chemical Preparer Name Role Phone Ioana Griffith MD Unavailable Unavailable Ioana Griffith MD Unavailable Unavailable Ioana Griffith MD Unavailable Unavailable Ioana Griffith MD Unavailable Unavailable Ioana Griffith MD Unavailable Unavailable Ioana Griffith MD Unavailable Unavailable Ioana Griffith MD Unavailable Unavailable Ioana Griffith MD Unavailable Unavailable Ioana Griffith MD Unavailable Unavailable Ioana Griffith MD Unavailable Unavailable Ioana Griffith MD Unavailable Unavailable Ioana Griffith MD Unavailable Unavailable Ioana Griffith MD Unavailable Unavailable Ioana Griffith MD Unavailable Unavailable Ioana Griffith MD Unavailable Unavailable Ioana Griffith MD Unavailable Unavailable Ioana Griffith MD Unavailable Unavailable Ioana Griffith MD Unavailable Unavailable Ioana Griffith MD Unavailable Unavailable Ioana Griffith MD Unavailable Unavailable Ioana Griffith MD Unavailable Unavailable Ioana Griffith MD Unavailable Unavailable Ioana Griffith MD Unavailable Unavailable Ioana Griffith MD Unavailable Unavailable Ioana Griffith MD Unavailable Unavailable Ioana Griffith MD Unavailable Unavailable Ioana Griffith MD Unavailable Unavailable Ioana Griffith MD Unavailable Unavailable Ioana Griffith MD Unavailable Unavailable Ioana Griffith MD Unavailable Unavailable Ioana Griffith MD Unavailable Unavailable Ioana Griffith MD Unavailable Unavailable Ioana Griffith MD Unavailable Unavailable Ioana Griffith MD Unavailable Unavailable Ioana Griffith MD Unavailable Unavailable Ioana Griffith MD Unavailable Unavailable Ioana Griffith MD Unavailable Unavailable Ioana Griffith MD Unavailable Unavailable Ioana Griffith MD Unavailable Unavailable Ioana Griffith MD Unavailable Unavailable Ioana Griffith MD Unavailable Unavailable Ioana Griffith MD Unavailable Unavailable Ioana Griffith MD Unavailable Unavailable Ioana Griffith MD Unavailable Unavailable Ioana Griffith MD Unavailable Unavailable Ioana Griffith MD Unavailable Unavailable Ioana Griffith MD Unavailable Unavailable Ioana Griffith MD Unavailable Unavailable Ioana Griffith MD Unavailable Unavailable Ioana Griffith MD Unavailable Unavailable Ioana Griffith MD Unavailable Unavailable Ioana Griffith MD Unavailable Unavailable Ioana Griffith MD Unavailable Unavailable Ioana Griffith MD Unavailable Unavailable Ioana Griffith MD Unavailable Unavailable Ioana Griffith MD Unavailable Unavailable Ioana Griffith MD Unavailable Unavailable Ioana Griffith MD Unavailable Unavailable Ioana Griffith MD Unavailable Unavailable Ioana Griffith MD Unavailable Unavailable Ioana Griffith MD Unavailable Unavailable Ioana Griffith MD Unavailable Unavailable Ioana Griffith MD Unavailable Unavailable Ioana Griffith MD Unavailable Unavailable Ioana Griffith MD Unavailable Unavailable Ioana Griffith MD Unavailable Unavailable Ioana Griffith MD Unavailable Unavailable Ioana Griffith MD Unavailable Unavailable Ioana Griffith MD Unavailable Unavailable Ioana Griffith MD Unavailable Unavailable Ioana Griffith MD Unavailable Unavailable Ioana Griffith MD Unavailable Unavailable Ioana Griffith MD Unavailable Unavailable Ioana Griffith MD Unavailable Unavailable Ioana Griffith MD Unavailable Unavailable Iaona Griffith MD Unavailable Unavailable Ioana Griffith MD Unavailable Unavailable Ioana Griffith MD Unavailable Unavailable Ioana Griffith MD Unavailable Unavailable Ioana Griffith MD Unavailable Unavailable Ioana Griffith MD Unavailable Unavailable Ioana Griffith MD Unavailable Unavailable Ioana Griffith MD Unavailable Unavailable Amanda Cain MD Unavailable Unavailable Amanda Cain MD Unavailable Unavailable Amanda Cain MD Unavailable Unavailable Amanda Cain MD Unavailable Unavailable Amanda Cain MD Unavailable Unavailable Amanda Cain MD Unavailable Unavailable Amanda Cain MD Unavailable Unavailable Amanda Cain MD Unavailable Unavailable Amanda Cain MD Unavailable Unavailable Amanda Cain MD Unavailable Unavailable Amanda Cain MD Unavailable Unavailable Amanda Cain MD Unavailable Unavailable Amanda Cain MD Unavailable Unavailable Amanda Cain MD Unavailable Unavailable Amanda Cain MD Unavailable Unavailable Amanda Cain MD Unavailable Unavailable Amanda Cain MD Unavailable Unavailable Amanda Cain MD Unavailable Unavailable Amanda Cain MD Unavailable Unavailable Amanda Cain MD Unavailable Unavailable Amanda Cain MD Unavailable Unavailable Amanda Cain MD Unavailable Unavailable Amanda Cain MD Unavailable Unavailable Amanda Cain MD Unavailable Unavailable Amanda Cain MD Unavailable Unavailable Amanda Cain MD Unavailable Unavailable Amanda Cain MD Unavailable Unavailable Amanda Cain MD Unavailable Unavailable Amanda Cain MD Unavailable Unavailable Amanda Cain MD Unavailable Unavailable SEARS, A CHERIE DO Unavailable Unavailable SEARS, A CHERIE DO Unavailable Unavailable SEARS, A CHERIE DO Unavailable Unavailable SEARS, A CHERIE DO Unavailable Unavailable SEARS, A CHERIE DO Unavailable Unavailable SEARS, A CHERIE DO Unavailable Unavailable SEARS, A CHERIE DO Unavailable Unavailable SEARS, A CHERIE DO Unavailable Unavailable SEARS, A CHERIE DO Unavailable Unavailable SEARS, A CHERIE DO Unavailable Unavailable SEARS, A CHERIE DO Unavailable Unavailable SEARS, A CHERIE DO Unavailable Unavailable SEARS, A CHERIE DO Unavailable Unavailable SEARS, A CHERIE DO Unavailable Unavailable SEARS, A CHERIE DO Unavailable Unavailable SEARS, A CHERIE DO Unavailable Unavailable SEARS, A CHERIE DO Unavailable Unavailable SEARS, A CHERIE DO Unavailable Unavailable SEARS, A CHERIE DO Unavailable Unavailable SEARS, A CHERIE DO Unavailable Unavailable SEARS, A CHERIE DO Unavailable Unavailable SEARS, A CHERIE DO Unavailable Unavailable SEARS, A CHERIE DO Unavailable Unavailable SEARS, A CHERIE DO Unavailable Unavailable SEARS, A CHERIE DO Unavailable Unavailable SEARS, A CHERIE DO Unavailable Unavailable SEARS, A CHERIE DO Unavailable Unavailable SEARS, A CHERIE DO Unavailable Unavailable SEARS, A CHERIE DO Unavailable Unavailable SEARS, A CHERIE DO Unavailable Unavailable SEARS, A CHERIE DO Unavailable Unavailable SEARS, A CHERIE DO Unavailable Unavailable SEARS, A CHERIE DO Unavailable Unavailable SEARS, A CHERIE DO Unavailable Unavailable SEARS, A CHERIE DO Unavailable Unavailable SEARS, A CHERIE DO Unavailable Unavailable SEARS, A CHERIE DO Unavailable Unavailable SEARS, A CHERIE DO Unavailable Unavailable SEARS, A CHERIE DO Unavailable Unavailable SEARS, A CHERIE DO Unavailable Unavailable SEARS, A CHERIE DO Unavailable Unavailable SEARS, A CHERIE DO Unavailable Unavailable SEARS, A CHERIE DO Unavailable Unavailable SEARS, A CHERIE DO Unavailable Unavailable SEARS, A CHERIE DO Unavailable Unavailable SEARS, A CHERIE DO Unavailable Unavailable SEARS, A CHERIE DO Unavailable Unavailable SEARS, A CHERIE DO Unavailable Unavailable Stacey WALSH MD Unavailable Unavailable Stacey WALSH MD Unavailable Unavailable Stacey WALSH MD Unavailable Unavailable Stacey WALSH MD Unavailable Unavailable Stacey WALSH MD Unavailable Unavailable Stacey WALSH MD Unavailable Unavailable Stacey WALSH MD Unavailable Unavailable Stacey WALSH MD Unavailable Unavailable Stacey WALSH MD Unavailable Unavailable Stacey WALSH MD Unavailable Unavailable Stacey WALSH MD Unavailable Unavailable Stacey WALSH MD Unavailable Unavailable Stacey WALSH MD Unavailable Unavailable Stacey WALSH MD Unavailable Unavailable Stacey WALSH MD Unavailable Unavailable Stacey WALSH MD Unavailable Unavailable Stacey WLASH MD Unavailable Unavailable Stacey WALSH MD Unavailable Unavailable DAMIRRALStacey Veloz MD Unavailable Unavailable DAMIRRALStacey Veloz MD Unavailable Unavailable Stacey WALSH MD Unavailable Unavailable Stacey WALSH MD Unavailable Unavailable Stacey WALSH MD Unavailable Unavailable Stacey WALSH MD Unavailable Unavailable Stacey WALSH MD Unavailable Unavailable Stacey WALSH MD Unavailable Unavailable Stacey WALSH MD Unavailable Unavailable Stacey WALSH MD Unavailable Unavailable Stacey WALSH MD Unavailable Unavailable Stacey WALSH MD Unavailable Unavailable Stacey WALSH MD Unavailable Unavailable DAMIRRALStacey Veloz MD Unavailable Unavailable DAMIRRALStacey Veloz MD Unavailable Unavailable SEARS, A CHERIE DO Unavailable Unavailable SEARS, A CHERIE DO Unavailable Unavailable SEARS, A CHERIE DO Unavailable Unavailable SEARS, A CHERIE DO Unavailable Unavailable SEARS, A CHERIE DO Unavailable Unavailable SEARS, A CHERIE DO Unavailable Unavailable SEARS, A CHERIE DO Unavailable Unavailable SEARS, A CHERIE DO Unavailable Unavailable SEARS, A CHERIE DO Unavailable Unavailable SEARS, A CHERIE DO Unavailable Unavailable SEARS, A CHERIE DO Unavailable Unavailable SEARS, A CHERIE DO Unavailable Unavailable SEARS, A CHERIE DO Unavailable Unavailable SEARS, A CHERIE DO Unavailable Unavailable SEARS, A CHERIE DO Unavailable Unavailable SEARS, A CHERIE DO Unavailable Unavailable SEARS, A CHERIE DO Unavailable Unavailable SEARS, A CHERIE DO Unavailable Unavailable SEARS, A CHERIE DO Unavailable Unavailable SEARS, A CHERIE DO Unavailable Unavailable SEARS, A CHERIE DO Unavailable Unavailable SEARS, A CHERIE DO Unavailable Unavailable SEARS, A CHERIE DO Unavailable Unavailable SEARS, A CHERIE DO Unavailable Unavailable SEARS, A CHERIE DO Unavailable Unavailable SEARS, A CHERIE DO Unavailable Unavailable SEARS, A CHERIE DO Unavailable Unavailable SEARS, A CHERIE DO Unavailable Unavailable SEARS, A CHERIE DO Unavailable Unavailable SEARS, A CHERIE DO Unavailable Unavailable SEARS, A CHERIE DO Unavailable Unavailable SEARS, A CHERIE DO Unavailable Unavailable SEARS, A CHERIE DO Unavailable Unavailable SEARS, A CHERIE DO Unavailable Unavailable SEARS, A CHERIE DO Unavailable Unavailable SEARS, A CHERIE DO Unavailable Unavailable SEARS, A CHERIE DO Unavailable Unavailable SEARS, A CHERIE DO Unavailable Unavailable SEARS, A CHERIE DO Unavailable Unavailable SEARS, A CHERIE DO Unavailable Unavailable SEARS, A CHERIE DO Unavailable Unavailable SEARS, A CHERIE DO Unavailable Unavailable SEARS, A CHERIE DO Unavailable Unavailable SEARS, A CHERIE DO Unavailable Unavailable SEARS, A CHERIE DO Unavailable Unavailable SEARS, A CHERIE DO Unavailable Unavailable SEARS, A CHERIE DO Unavailable Unavailable SEARS, A CHERIE DO Unavailable Unavailable [place], E Kristen VAT OVERHAULER Unavailable Unavailable [place], E Kristen VAT OVERHAULER Unavailable Unavailable [place], E Kristen VAT OVERHAULER Unavailable Unavailable [place], E Kristen VAT OVERHAULER Unavailable Unavailable [place], E Kristen VAT OVERHAULER Unavailable Unavailable [place], E Kristen VAT OVERHAULER Unavailable Unavailable [place], E Kristen VAT OVERHAULER Unavailable Unavailable [place], E Kristen VAT OVERHAULER Unavailable Unavailable [place], E Kristen VAT OVERHAULER Unavailable Unavailable [place], E Krsiten VAT OVERHAULER Unavailable Unavailable [place], E Kristen VAT OVERHAULER Unavailable Unavailable [place], E Kristen VAT OVERHAULER Unavailable Unavailable [place], E Kristen VAT OVERHAULER Unavailable Unavailable Re-disclosure Warning The records that you are about to access may contain information from federally-assisted alcohol or drug abuse programs. If such information is present, then the following federally mandated warning applies: This information has been disclosed to you from records protected by federal confidentiality rules (42 CFR part 2). The federal rules prohibit you from making any further disclosure of this information unless further disclosure is expressly permitted by the written consent of the person to whom it pertains or as otherwise permitted by 42 CFR part 2. A general authorization for the release of medical or other information is NOT sufficient for this purpose. The Federal rules restrict any use of the information to criminally investigate or prosecute any alcohol or drug abuse patient.The records that you are about to access may contain highly sensitive health information, the redisclosure of which is protected by Article 27-F of the [facility] Public Health law. If you continue you may have access to information: Regarding HIV / AIDS; Provided by facilities licensed or operated by the [facility] Office of Mental Health; or Provided by the [facility] Office for People With Developmental Disabilities. If such information is present, then the following [facility] mandated warning applies: This information has been disclosed to you from confidential records which are protected by state law. State law prohibits you from making any further disclosure of this information without the specific written consent of the person to whom it pertains, or as otherwise permitted by law. Any unauthorized further disclosure in violation of state law may result in a fine or care home sentence or both. A general authorization for the release of medical or other information is NOT sufficient authorization for further disc losure. Family History Family Member Name Family Member Gender Family Member Status Date o f Status Description Data Source(s) Unknown Condition [facility] Unknown Condition [facility] Unknown Condition [facility] Unknown Condition [facility] Unknown Condition [facility] Unknown Condition [facility] Unknown Condition [facility] Unknown Condition [facility] Unknown Condition [facility] Unknown Condition [facility] Unknown Condition [facility] Unknown Condition [facility] Unknown Condition [facility] Unknown Condition [facility] Unknown Condition [facility] Unknown Condition [facility] Unknown Male Problem [facility] ([facility] () - age 71 Unknown Unknown Problem [facility] ([facility], ) Encounters Encounter Providers Location Date Indications Data Source(s ) Outpatient Attender: SAGE Pollard/Keith/Az alonzo/Marilyn 01/19/2021 09:20:00 AM EDT [facility] ([facility], ) Outpatient Attender: CHERIE Calderon/Keith/Compa/Reinmary 12/16/2020 03:30:00 PM EDT [facility] ([facility], ) Outpatient Attender: Daisy Cordova: Daisy goodson MD 10/22/2020 11:01:00 AM EDT - 10/22/2020 11:40:00 AM EDT [facility] Outpatient Attender: CHERIE BRANHAM DO Latrice/[place]/Compa/Reindl 10/20/2020 02:30:00 PM EDT [facility] ([facility] Outpatient Attender: Amanda Kayang/[place]/Compa/Smith ndl 10/14/2020 01:23:00 AM EDT [facility] ([facility]) Outpatient Attender: Amanda Kayang/[place]/Compa/Smith ndl 10/13/2020 01:23:00 AM EDT [facility] ([facility]) Outpatient Attender: Amanda Pollard/[place]/Compa/Smith ndl 10/12/2020 01:23:00 AM EDT [facility] ([facility]) Outpatient Attender: CHERIE BRANHAM DO [place]/Compa/Reindl 05/16/2020 08:15:00 AM EST [facility] ([facility] Outpatient Attender: Daisy Griffith MDReferrer: Daisy goodson MD 05/12/2020 01:58:00 PM EST - 05/12/2020 02:50:00 PM EST [facility] Outpatient Attender: Daisy Griffith MDReferrer: Daisy goodson MD 04/21/2020 01:35:00 PM EDT - 04/21/2020 02:14:00 PM EDT [facility] Outpatient Attender: CHERIE BRANHAM DO [place]/Compa/Reindl 04/08/2020 01:23:00 AM EDT [facility] ([facility] Outpatient Attender: CHERIE BRANHAM DO [place]/Compa/Reindl 04/07/2020 01:23:00 AM EDT [facility] ([facility] Outpatient Attender: CHERIE BRANHAM DO [place]/Compa/Reindl 04/06/2020 01:23:00 AM EDT [facility] ([facility] Outpatient LERAYDC 03/18/2020 03:02:01 PM EDT [facility] Outpatient LERAYDC 03/18/2020 03:01:01 PM EDT [facility] Outpatient [facility]AY[facility] 03/18/2020 11:01:03 AM EDT [facility] 03/17/2020 10:26:02 AM EDT [facility] 02/25/2020 08:19:00 AM EDT [facility] 02/21/2020 04:09:00 PM EDT [facility] 02/21/2020 09:08:01 AM EDT [facility] 02/19/2020 09:53:00 AM EDT [facility] Outpatient Attender: CHERIE Valladares rer: CHERIE BRANHAM DOConsultant: Kristen Fisher VAT OVERHAULER 01/17/2020 10:47:00 AM EDT - 01/17/2020 10:57:[address] [facility] Immunizations Vaccine Date Status Description Data Source(s) COVID-19 Vaccine Tristan (J&J) 10/03/2020 12:00:00 AM EDT completed [facility] COVID-19 VACCINE Tristan 10/03/2020 12:00:00 AM EDT completed [facility] Vaccine Series Complete: YESThis Data wa s Submitted to [facility] Via [employer]. New in 2011. IIV4 05/16/2020 08:13:00 AM EST completed [facility] ([facility], ) Medications Medication Brand Name Start Date Product Form Dose Route Admi nistrative Instructions Pharmacy Instructions Status Indications Reaction Description Data Source(s) Codeine Phosphate 2 MG/ML / Guaifenesin 20 MG/ML Oral Soluti on Virtussin A/C 12/16/2020 12:00:00 AM EDT ORAL active [facility] ([facility], ) Azelastine HCL (Nasal) Azelastine HCL (Nasal) 12/16/2020 12:00:00 AM E DT active [facility] ([facility] ) Amoxicillin 500 MG / Clavulanate 125 MG Oral Tablet Amoxicillin-Pot Clavulanate (Augmentin) 500-125 mg tablet Amoxicillin-Pot Clavulanate (Augmentin) 500-125 mg tablet 10/22/2020 11:39:35 AM EDT 1 TAB active [facility] Hydromorphone Hydrochloride 1 MG/ML Oral Solution [Dilaudid] Dilaudid 10/20/2020 12:00:00 AM EDT completed [facility] ([facility], ) Ketorolac Tromethamine 10 MG Oral Tablet Ketorolac Trometham ine 10/20/2020 12:00:00 AM EDT ORAL completed [facility] ([facility] ) Omeprazole 40 MG Delayed Release Oral Capsule Omeprazole 10/20/2020 12:00:00 AM EDT ORAL completed [facility] ([facility], ) Levothyroxine Sodium 0.075 MG Oral Table t [Euthyrox] Levothyroxine (Euthyrox) 75 mcg tablet Levothyroxine (Euthyrox) 75 mcg tablet 07/02/2020 03:25:24 PM ES T 0 active [facility] Codeine Phosphate 2 MG/ML / Guaifenesin 20 MG/ML Oral Soluti on Cheratussin ac 05/16/2020 12:00:00 AM EST ORAL completed [facility] ([facility], ) Nystatin 04/21/2020 02:08:08 PM EDT 5 ML active [facility] Nystatin 04/21/2020 02:08:08 PM EDT 5 ML active [facility] Nystatin 04/21/2020 02:08:08 PM EDT 5 ML active [facility] Hydromorphone Hydrochloride 2 MG Oral Tablet Hydromorphone 04/21/2020 01:47:03 PM EDT active [facility] Hydromorphone Hydrochloride 2 MG Oral Tablet Hydromorphone 04/21/2020 01:47:03 PM EDT completed [facility] Hydromorphone Hydrochloride 2 MG Oral Tablet Hydromorphone 04/21/2020 01:47:03 PM EDT completed [facility] azelastine Azelastine Azelastine 04/21/2020 01:46:47 PM EDT active [facility] azelastine Azelastine Azelastine 04/21/2020 01:46:47 PM EDT active [facility] azelastine Azelastine Azelastine 04/21/2020 01:46:47 PM EDT active [facility] 120 ACTUAT Budesonide 0.16 MG/ACTUAT / f ormoterol fumarate 0.0045 MG/ACTUAT Metered Dose Inhaler Budesonide-Formoterol Budesonide-Formoterol 04/21/2020 01:46:36 PM EDT active [facility] 120 ACTUAT Budesonide 0.16 MG/ACTUAT / f ormoterol fumarate 0.0045 MG/ACTUAT Metered Dose Inhaler Budesonide-Formoterol Budesonide-Formoterol 04/21/2020 01:46:36 PM EDT active [facility] 120 ACTUAT Budesonide 0.16 MG/ACTUAT / f ormoterol fumarate 0.0045 MG/ACTUAT Metered Dose Inhaler Budesonide-Formoterol Budesonide-Formoterol 04/21/2020 01:46:36 PM EDT active [facility] Albuterol 0.417 MG/ML Inhalant Solution Albuterol Sulfate Al buterol Sulfate 04/21/2020 01:46:21 PM EDT active [facility] Albuterol 0.417 MG/ML Inhalant Solution Albuterol Sulfate Al buterol Sulfate 04/21/2020 01:46:21 PM EDT completed [facility] Albuterol 0.417 MG/ML Inhalant Solution Albuterol Sulfate Al buterol Sulfate 04/21/2020 01:46:21 PM EDT completed [facility] Prednisone 10 MG Oral Tablet Prednisone 04/21/2020 01:45:48 PM EDT completed [facility] Prednisone 10 MG Oral Tablet Prednisone 04/21/2020 01:45:48 PM EDT completed [facility] Prednisone 10 MG Oral Tablet Prednisone 04/21/2020 01:45:48 PM EDT active [facility] Levofloxacin 750 MG Oral Tablet Levofloxacin 04/21/2020 01:45:29 PM EDT 750 MG completed [facility] Levofloxacin 750 MG Oral Tablet Levofloxacin 04/21/2020 01:45:29 PM EDT 750 MG active [facility] Levofloxacin 750 MG Oral Tablet Levofloxacin 04/21/2020 01:45:29 PM EDT 750 MG completed [facility] ferrous sulfate 325 MG Oral Tablet Ferrous Sulfate Ferrous S ulfate 04/21/2020 01:44:29 PM EDT 325 MG active [facility] ferrous sulfate 325 MG Oral Tablet Ferrous Sulfate Ferrous S ulfate 04/21/2020 01:44:29 PM EDT 325 MG completed [facility] ferrous sulfate 325 MG Oral Tablet Ferrous Sulfate Ferrous S ulfate 04/21/2020 01:44:29 PM EDT 325 MG completed [facility] Vicks Air Purifier/Hepa 04/14/2020 12:00:00 AM EDT active [facility] ([facility], ) Levothyroxine Sodium 0.075 MG Oral Tablet Levothyroxine 11/12/2019 12:42:06 PM EDT 75 MCG completed [facility] tramadol hydrochloride 50 MG Oral Tablet Tramadol Tramadol 09/13/2019 11:43:27 AM EDT 50 MG completed [facility] tramadol hydrochloride 50 MG Oral Tablet Tramadol Tramadol 09/13/2019 11:43:27 AM EDT 50 MG completed [facility] tramadol hydrochloride 50 MG Oral Tablet Tramadol Tramadol 09/13/2019 11:43:27 AM EDT 50 MG completed [facility] Insurance Providers Payer name Policy type / Coverage type Policy ID Covered constitution party ID Covered constitution party's relationship to alva Policy Alva Plan Information [place] [id number] SP [id number] [place] [employer] [place] Other 0 [id number] Self 0 [place] [id number] SP [id number] [place] Other 0 [id number] Self 0 [place] Other 0 [id number] Self 0 [place] Other 0 [id number] Self 0 [place] Other 0 [id number] Self 0 [place] [id number] SP [id number] [place] Other 0 [id number] Self 0 [place] Other 0 [id number] Self 0 [place] Other 0 [id number] Self 0 [place] [id number] SP [id number] [place] [id number] SP [id number] [place] [id number] SP [id number] [place] [id number] SP [id number] [place] [id number] SP [id number] [place] [id number] SP [id number] [place] I [id number] Self [id number] [place] [id number] SP [id number] [place] [id number] SP [id number] 400 [place] [id number] SP [id number] [facility] Other 0 [id number] Self [id number] [place] [id number] SP [id number] 400 [place] CARE [facility] [id number] S [id number] [place] [id number] SP [id number] 400 Managed Care [place] P UNAVAILABLE S UNAVAILABLE Medicaid S UNAVAILABLE S UNAVAILA BLE [place] CARE [facility] [id number] 18 [id number] Medicaid Dental P [id number] S [id number] [facility] [employer] [id number] Self [id number] [facility] [employer] [id number] Self [id number] [facility] [employer] [id number] Self [id number] [place] of [place] Other 0 [id number] Self 0 [place] Other 0 [id number] Self 0 [facility] [employer] [id number] Self [id number] Medicaid of [place] Other 0 [id number] Self 0 [place] Other 0 [id number] Self 0 [facility] [place] Medicaid [id number] Medicaid [facility] Other 0 [id number] Self [address] [facility] Other 0 [id number] Self 0 [facility] [place] Medicaid [id number] Self [id number] Medicaid of [place] Other 0 [id number] Self 0 Problems, Conditions, and Diagnoses No Information Surgeries/Procedures Procedure Description Date Indications Data Source(s) OFFICE OUTPATIENT NEW 45 MINUTES 01/19/2021 12:00:00 A M EDT [facility] ([facility] ) OFFICE OUTPATIENT VISIT 25 MINUTES 12/16/2020 12:00:00 AM ED[facility] OFF[facility] OUTPATIENT VISIT 25 MINUTES 10/20/2020 12:00:00 AM EDT [facility] ([facility], ) CRITICAL CARE ILL/INJURED PATIENT INIT 30-74 MIN 10/14 12:00:00 AM EDT [facility] ([facility]) CRITICAL CARE ILL/INJURED PATIENT INIT 30-74 MIN 10/13 12:00:00 AM EDT [facility] ([facility] ) Insertion Of Non-Tunneled Centrally Inserted Central Venous [place] 10/12/2020 12:00:00 AM EDT [facility] ([facility]) Ultrasound Guidance For Vascular Access Requiring Ultrasound Eval 10/12/2020 12:00:00 AM EDT [facility] ([facility]) CRITICAL CARE ILL/INJURED PATIENT INIT 30-74 MIN 10/12 12:00:00 AM EDT [facility] ([facility] ) CRITICAL CARE ILL/INJURED PATIENT ADDL 30 MIN 10/13/19 12:00:00 AM EDT [facility] ([facility] ) Bronchoscopy, Rigid Or Flex, Diagnostic W/W/O Cell Washing 05/06/2020 12:00:00 AM EST [facility] ([facility] ) Results ID Date Data Source [id number] 10/22/2020 11:18:00 AM EDT [facility] Patient Name: KALPESH FERRARA : 1960 Sex: F Pt Unit #: [id number] Location:[facility] Provider: Visit Date/Time: 10/22/20 Primary Insurance: [employer] Secondary Insurance: Self Pay Intake Vital Signs 10/22/20 11:21 Current Height 4 ft 11 in Current Weight 90 lb Weight Measurement Method Stated by Patient BMI 18.1 BP 132/74 Blood Pressure Location Lt brachial Position Sitting Respiration 14 Pulse 74 Pulse Strength Normal Pulse Source Pulse Oximeter Pulse Oximetry (%) 96 Oxygen Delivery Method room air Intake Visit Reasons: Hospital Discharge Follow-up Nurse Note: Hospital D/C follow up - Dx: Septic, and Hypotensive. Admit on 10/12, D/C on 10/15/20 - States she is starting to feel a little better, Still taking Antibiotics, Costume Director Required: No Accompanied by: Self / Same as Patient Is patient in pain?: Yes (shoulder and left side ) Pain scale (1-10): 3 Allergies No Known Drug Allergies Allergy (Verified 10/21/14 06:27) No Known Food Allergies Allergy (Unverified 10/22/20 11:20) Medications - Last Reconciled 10/22/20 by Daisy Griffith M.D. amoxicillin-pot clavulanate 500-125 mg (Augmentin) 1 tab PO BID 10 days azelastine intranasal budesonide-formoterol 160-4.5 mcg/actuation inhalation levothyroxine (Euthyrox) Take 1 tablet by mouth once daily nystatin 5 mL PO TID 10 days Is last menstrual period known: No Post menopausal: Yes Patient : No Fall Risk History of falls: No Ambulatory Aid:: None Gait/Transferring:: Normal Medications:: No High Risk Medications PHQ-2/9 Over the last 2 weeks, how often have you been bothered by any of the following problems? 1. Little interest or pleasure in doing things: not at all 2. Feeling down, depressed, or hopeless: not at all Total score: 0 HIV Testing Offer - ages 13-64 Requirement for HIV testing offer been met?: Patient reports past refusal SBIRT Annual Questionnaire Are you currently in recovery for alcohol or substance use?: No How many times in the past year have you had 4 or more drinks in a day?: None How many times in the past year have you used a recreational drug or used a prescription medication for nonmedical reasons?: None Do you need a note to return Do you need a note to return to daycare/school/sports/work: No Coronavirus Screening Screening Are you currently positive or on isolation for COVID ?: No Do you have any NEW signs of one or more of the following?: no symptoms Do you have NEW signs of at least two of the following?: no symptoms HPI Additional HPI HPI Details: became sick quickly, fever, low BP, ? cat bite and pneumonia [facility] Medical History Lung cancer Pleural effusion Surgical History Previous section Family History Mother Pancreatic cancer Father Pancreatic cancer Social History Does the Patient have a Healthcare Proxy: No Does Patient have a DNR?: No Does Patient have a Living Will?: No Does the Patient have a MOLST?: No Advance Directives on File or in chart?: No Hx Recent Travel (where): No Smoking Status: Former smoker Review of Systems Const Denies chills, Reports fatigue, Denies fever(s), Denies headache(s) and Denies poor appetite Eyes Denies blurry vision, Denies diplopia and Denies eye discharge ENT Denies headache(s), Reports nasal congestion, Reports post nasal drip, Reports sinus pressure and Reports sore throat Card Denies chest pain, Denies palpitations, Reports dyspnea on exertion, Denies orthopnea and Denies paroxysmal nocturnal dyspnea Resp Reports cough, Reports dyspnea on exertion and Denies wheezing GI Denies nausea and Denies vomiting Skin/Breast Denies lesions and Denies rash Neuro Denies headache(s) Psych Reports anxiety Endo Reports fatigue and Denies palpitations Aller/Immun Denies wheezing Exam Const General: cooperative and no acute distress Nutritional Appearance: average body habitus Orientation: alert, awake and oriented x3 HENMT Ears: TM abnormal bullous bilaterally General nose exam: nasal discharge Throat: tonsils normal and postnasal drainage Eyes Conjunctivae: conjunctivae normal Neck Neck mass: No Lymphatic: no lymphadenopathy noted Resp Effort Inspection: normal respiratory effort Auscultation: clear to auscultation bilaterally, diminished lung sounds on the right, no rales, no rhonchi and no wheezes Cardio Rate: regular rate Rhythm: regular rhythm Assessment Plan Assessment Plan (1) Hospital discharge follow-up: Code(s): Z09 - Encounter for follow-up examination after completed treatment for conditions other than m alignant neoplasm (2) Lung cancer: Status: Acute Code(s): C34.90 - Malignant neoplasm of unspecified part of unspecified bronchus or lung SNOMED Code(s): 958379114 Category: Medical Qualifiers: Laterality: unspecified laterality Lung location: unspecified part of lung Qualified Code(s): C34.90 - Malignant neoplasm of unspecified part of unspecified bronchus or lung (3) Pneumonia: Code(s): J18.9 - Pneumonia, unspecified organism Qualifiers: Pneumonia type: due to unspecified organism Laterality: bilateral Lung location: unspecified part of lung Qualified Code(s): J18.9 - Pneumonia, unspecified organism Additional Comments Additional Comments: records reviewed, sepsis and pneumonia, ? culture reports meds reviewed, seeingpulmonary and oncology, further labs and tests to be done by them, continue augmentin, see 1 month Orders Other Medications: New: amoxicillin-pot clavulanate 500-125 mg (Augmentin) 1 tab PO BID 10 days 20 tabs 0RF Follow Up: 1 Month Coding Level of Care Code 49816 Est Pt Extended Comp Exam Expanded Problem Focused Diagnoses Hospital discharge follow-up Z09 Lung cancer C34.90 Laterality: unspecified laterality Lung location: unspecified part of lung Pneumonia J18.9 Pneumonia type: due to unspecified organism Laterality: bilateral Lung location: unspecified part of lung <Electronically signed by Daisy Griffith MD> 10/22/20 1249 Name Value Range Interpretation Code Description Data Lnih rce(s) Supporting Document(s) ID Date Data Source [id number] 10/12/2020 09:04:00 AM EDT [facility] Name Value Range Interpretation Code Description Data Linh rce(s) Supporting Document(s) SARS-CoV-2 (COVID 19) NEGATIVE - SARS-CoV-2 (COVID19) [facility] This lab was ordered by [facility] a nd reported by [facility]. ID Date Data Source [id number] 05/12/2020 02:02:00 PM [facility] Patient Name: KALPESH FERRARA : 1960 Sex: F Pt Unit #: [id number] Location:[facility] Provider: Visit Date/Time: 05/12/20 Primary Insurance: [facility] Secondary Insurance: Self Pay Intake Vital Signs 05/12/20 14:05 Current Height 4 ft 11 in Current Weight 87 lb Weight Measurement Method Standing Scale BMI 17.5 BP 126/62 Blood Pressure Location Lt radial Position Sitting Respiration 12 Pulse 119 H Pulse Strength Normal Pulse Source Pulse Oximeter Pulse Oximetry (%) 98 Oxygen Delivery Method room air Intake Visit Reasons: Annual Physical, Office visit, Thyroid dysfunction Nurse Note: Annual Physical - Pt refuses Mammo, Pap, CCS, Bone Density, is here for follow up for her hospital stay, Lung issues, still has cough, and SOB, but no fevers since she has been d/c 10.- would like to figure out what is causing her cough, and how to get rid of it, Costume Director Required: No Accompanied by: Self / Same as Patient Is patient in pain?: No Allergies No Known Drug Allergies Allergy (Verified 10/21/14 06:27) Medications azelastine intranasal budesonide-formoterol 160-4.5 mcg/actuation inhalation levothyroxine 75 mcg PO QDAY nystatin 5 mL PO TID 10 days Is last menstrual period known: No Post menopausal: Yes Patient : No Vision Wearing glasses?: No Fall Risk History of falls: No Ambulatory Aid:: None Gait/Transferring:: Normal Medications:: No High Risk Medications PHQ-2/9 Over the last 2 weeks, how often have you been bothered by any of the following problems? 1. Little interest or pleasure in doing things: not at all 2. Feeling down, depressed, or hopeless: not at all Total score: 0 HIV Testing Offer - ages 13-64 HIV testing Offer: Yes Requirement for HIV testing offer been met?: Patient reports past refusal Hep C Testing Offered: Yes Hep C Requirement met: Refuses today SBIRT Annual Questionnaire Are you currently in recovery for alcohol or substance use?: No How many times in the past year have you had 4 or more drinks in a day?: None Do you need a note to return Do you need a note to return to daycare/school/sports/work: No Coronavirus Screening Screening Have you traveled outside of [facility] or [facility] in the last 14 days.: No Has patient experienced coronavirus symptoms: No PFSH Medical History Lung cancer Pleural effusion Surgical History Previous section Family History Mother Pancreatic cancer Father Pancreatic cancer Social History Does the Patient have a Healthcare Proxy: No Does Patient have a DNR?: No Does Patient have a Living Will?: No Does the Patient have a MOLST?: No Advance Directives on File or in chart?: No Hx Recent Travel (where): No Smoking Status: Former smoker HPI Thyroid Dysfunction denies palpitations, chest pain, irritability, anxiety or diplopia fatigue; denies depression Thyroid Dysfunction Results: No Data to Display Review of Systems Const Denies chills, Reports fatigue, Denies headache(s), Denies poor appetite and Denies weight loss Eyes Denies blurry vision, Denies diplopia and Denies eye discharge ENT Denies headache(s) Card Denies chest pain, Denies palpitations, Reports dyspnea, Denies orthopnea and Denies paroxysmal nocturnal dyspnea Resp Reports cough, Reports excessive phlegm production, Reports dyspnea and Denies wheezing GI Denies heartburn, Denies nausea and Denies vomiting Genitourinary: Denies dysuria Musc Denies back pain, Denies arthralgias, Denies limited range of motion and Denies numbness Skin/Breast Denies breast pain, Denies lesions and Denies rash Neuro Denies headache(s) and Denies numbness Psych Denies abnormal sleep pattern, Denies anxiety, Denies depression and Denies irritability Endo Reports fatigue and Denies palpitations Kai/Lymph Denies easy bleeding, Denies easy bruising and Denies lymphadenopathy Aller/Immun Denies wheezing Exam Const General: cooperative and no acute distress Nutritional Appearance: average body habitus Orientation: alert, awake and oriented x3 HENMT Head: normal to inspection, normocephalic and atraumatic Ears: TM's normal bilaterally and EAC's normal General nose exam: external nose normal; no nasal discharge noted Mouth: oral mucosae normal Throat: posterior oropharynx normal Eyes General: appearance normal, both eyes and all related structures Conjunctivae: conjunctivae normal Sclera: sclerae normal Neck Neck: normal visual inspection and full ROM Thyroid: thyroid normal Lymphatic: no lymphadenopathy noted Chest Chest: normal inspection of the chest Resp Effort Inspection: normal respiratory effort Auscultation: diminished lung sounds on the right, no rales and no rhonchi Cardio Rate: regular rate Rhythm: regular rhythm Heart Sounds: no murmurs GI Inspection: Yes normal to inspection Palpation: soft, no masses and nontender Auscultation: normal bowel sounds Musc Cervical Spine: cervical ROM normal Thoracic/Lumbar Spine: thoracic and lumbar spine normal to inspection Neuro General: patient alert and patient awake Cranial Nerves: hearing normal Cognition: normal cognition Motor: muscle tone normal throughout Sensory Exam: no sensory deficits noted Extrem General: no clubbing, cyanosis or edema Psych Appearance: grossly normal Mental Status: mental status grossly normal Assessment Plan Assessment Plan (1) Thyroid Dysfunction: Code(s): E07.9 - Disorder of thyroid, unspecified (2) Lung cancer: Status: Acute Code(s): C34.90 - Malignant neoplasm of unspecified part of unspecified bronchus or lung SNOMED Code(s): 413578768 Category: Medical Qualifiers: Laterality: unspecified laterality Lung location: unspecified part of lung Qualified Code(s): C34.90 - Malignant neoplasm of unspecified part of unspecified bronchus or lung (3) Pleural effusion: Status: Acute Code(s): J90 - Pleural effusion, not elsewhere classified SNOMED Code(s): 92621706 Category: Medical (4) Encounter for routine adult health examination with abnormal findings: Code(s): Z00.01 - Encounter for general adult medical examination with abnormal findings Additional Comments Additional Comments: doing ok but starting with more phlegm again, has pulmonary appt 05/13, will see back over next few weeks, may be starting with more effusion again, discussed CXR, but wishes towait for pulmonary <Electronically signed by Daisy Griffith MD> 05/14/20 0751 Name Value Range Interpretation Code Description Data Linh rce(s) Supporting Document(s) ID Date Data Source [id number] 05/01/2020 12:00:00 PM EST [facility] Name Value Range Interpretation Code Description Data Linh rce(s) Supporting Document(s) SARS coronavirus 2 RNA [facility] This lab was ordered by [facility] and reported by [facility]. ID Date Data Source [id number] 04/21/2020 01:39:00 PM EDT [facility] Patient Name: KALPESH FERRARA : 1960 Sex: F Pt Unit #: [id number] Location:[facility] Provider: Visit Date/Time: 04/21/20 Primary Insurance: [facility] Secondary Insurance: Self Pay Intake Vital Signs 04/21/20 13:39 Current Height 4 ft 11 in Current Weight 85 lb Weight Measurement Method Standing Scale BMI 17.2 BP 122/60 Blood Pressure Location Rt brachial Position Sitting Respiration 12 Pulse 101 H Pulse Strength Normal Pulse Source Pulse Oximeter Pulse Oximetry (%) 94 L Oxygen Delivery Method room air Intake Visit Reasons: Hospital Discharge Follow-up Nurse Note: [facility] D/C follow up Pleural Effusion right lung has been in and out 3X since 03/24/2020, states she is mostly feeling better, but is very weak - has a hard time walking, but if she is not active she feels pretty good - had a mucinex pil l caught in throat for months, feels its where infection originated? Costume Director Required: No Accompanied by: Self / Same as Patient Is patient in pain?: No Allergies No Known Drug Allergies Allergy (Verified 10/21/14 06:27) Medications albuterol sulfate inhalation azelastine intranasal budesonide-formoterol 160- 4.5 mcg/actuation inhalation ferrous sulfate 325 mg PO hydromorphone PO levofloxacin 750 mg PO levothyroxine 75 mcg PO QDAY nystatin 5 mL PO TID 10 days prednisone PO Is last menstrual period known: Yes Post menopausal: No Patient : No Fall Risk History of falls: No Ambulatory Aid:: None Gait/Transferring:: Normal Medications:: No High Risk Medications PHQ-2/9 Over the last 2 weeks, how often have you been bothered by any of the following problems? 1. Little interest or pleasure in doing things: not at all 2. Feeling down, depressed, or hopeless: not at all Total score: 0 HIV Testing Offer - ages 13-64 HIV testing Offer: Yes Requirement for HIV testing offer been met?: Patient reports past refusal Hep C Testing Offered: Yes Hep C Requirement met: Refuses today SBIRT Annual Questionnaire Are you currently in recovery for alcohol or substance use?: No How many times in the past year have you had 4 or more drinks in a day?: None How many times in the past year have you used a recreational drug or used a prescription medication for nonmedical reasons?: None Do you need a note to return Do you need a note to return to daycare/school/sports/work: No Coronavirus Screening Screening Have you traveled outside of [facility] or [facility] in the last 14 days.: No Has patient experienced coronavirus symptoms: No [facility] Medical History Lung cancer Pleural effusion Surgical History Previous section Family History Mother Pancreatic cancer Father Pancreatic cancer Social History Does the Patient have a Healthcare Proxy: No Does Patient have a DNR?: No Does Patient have a Living Will?: No Does the Patient have a MOLST?: No Advance Directives on File or in chart?: No Hx Recent Travel (where): No Smoking Status: Former smoker Review of Systems Const Denies chills, Reports fatigue, Denies fever(s), Reports poor appetite and Reports weight loss ENT Denies nasal congestion, Reports post nasal drip and Reports sore throat Card Denies chest pain and Reports dyspnea Resp Reports cough, Reports dyspnea and Reports wheezing GI Denies abdominal pain, Denies nausea and Denies vomiting Musc Reports arthralgias and Reports limited range of motion (R shoulder ain continues) Endo Reports fatigue Aller/Immun Reports wheezing Exam Const General: cooperative and no acute distress Nutritional Appearance: average body habitus Resp Effort Inspection: normal respiratory effort Auscultation: diminished lung sounds on the right Cardio Rate: regular rate Rhythm: regular rhythm GI Palpation: soft and nontender Psych Speech and Movement: restless Mood: anxious mood Assessment Plan Assessment Plan (1) Hospital discharge follow-up: Code(s): Z09 - Encounter for follow-up examination after completed treatment for conditions other than malignant neoplasm (2) Pleural effusion: Status: Acute Code(s): J90 - Pleural effusion, not elsewhere classified SNOMED Code(s): 01553173 Category: Medical (3) Lung cancer: Status: Acute Code(s): C34.90 - Malignant neoplasm of unspecified part of unspecified bronchus or lung SNOMED Code(s): 240392872 Category: Medical Qualifiers: Laterality: unspecified laterality Lung location: unspecified part of lung Qualified Code(s): C34.90 - Malignant neoplasm of unspecified part of unspecified bronchus or lung Additional Comments Additional Comments: records , scans reviewed, nystatin ,for throat, continues with pulmonary , surgeon and oncology, see 1 month Orders Other Medications: New: nystatin swish and swallow 5 mL PO TID 10 days 150 mL 2RF Follow Up: 1 Month <Electronically signed by Daisy Griffith MD> 04/21/20 1617 Name Value Range Interpretation Code Description Data Linh rce(s) Supporting Document(s) ID Date Data Source [id number] 03/18/2020 10:56:51 AM EDT [facility] Current Problems: DENTAL CARIES EXTENDIN G INTO PULP (ICD-521.03) (ICD10- K02.63)Current Medications: EUTHYROX TABLET (LEVOTHYROXINE SODIUM TABS) Dental Chart: Procedures:Type - CDT Code - Description B - (D2222) No Charge Visit (Performed by Devonte Merchant DDS) Chart Notes:sabine (Mar 18 2020 11:00AM): Additional PPE requirements due to COVID-19 in the dental setting, N95, surgical mask, hair covering, gown, face shield. Temp: 97.3 passed COVID questionairePt present for teeth set in wax, pt is happy with shade, and shape of teeth and occlusion. Case will be sent to [facility] to finalize maxillary and mandibular dentureNv: gavinovery.Devonte Merchant DDS by sabine (03/18/2020 11:00 AM): Tooth Notes and Watches: Assessment & Plan Medications:EUTHYROX TABLETAllergies:No Known Allergies (updated 11/01/2018) Name Value Range Interpretation Code Description Data Linh rce(s) Supporting Document(s) ID Date Data Source [id number] 02/21/2020 03:19:24 PM EDT [facility] Current Problems: DENTAL CARIES EXTENDIN G INTO PULP (ICD-521.03) (ICD10- K02.63)Current Medications: EUTHYROX TABLET (LEVOTHYROXINE SODIUM TABS) Dental Chart: Procedures:Type - CDT Code - Description B - (D2222) No Charge Visit (Performed by Devonte Merchant DDS) Chart Notes:sabine (Feb 21 2020 4:08PM): Additional PPE requirements due to COVID-19 in the dental setting, N95, surgical mask, hair covering, gown, face shield. Temp: 96.9 passed COVID questionairePt present for teeth set in wax, pt is happy with shade, and shape of teeth. Pt. is not happy with the anterior occlusion. She feels there is an overjet. ( there is an overjet but not to a point that would bother most patients) Case will be sent back to [facility] to move upper anterior , also Pt is not happy with how teeth hit her lower lip. New bite reg takenNv: teeth set in wax.Devonte Merchant DDS by sabine (02/21/2020 4:08 PM): Tooth Notes and Watches: Name Value Range Interpretation Code Description Data Linh rce(s) Supporting Document(s) Procedure Social History Code Duration Value Status Description Data Source(s ) Smoking 12/16/2020 12:00:00 AM EDT - 06/27/2006 12:00:00 AM EST Patient is a former smoker completed Patient is a former smoker [facility] ([facility] ) Smoking 04/04/2020 11:01:00 AM EDT Former smoker completed Former smoker [facility] 04/04/2020 10:01:00 AM EDT 8 yrs ago completed 8 yrs ago [facility] 04/04/2020 10:01:00 AM EDT No completed [facility] 04/04/2020 10:01:00 AM EDT No completed No [facility] 04/04/2020 10:01:00 AM EDT Former smoker completed Former smoker [facility] Smoking 04/04/2020 10:01:00 AM EDT Former smoker completed Former smoker [facility] 04/04/2020 10:01:00 AM EDT 8 yrs ago completed 8 yrs ago [facility] 04/04/2020 10:01:00 AM EDT No completed [facility] 04/04/2020 10:01:00 AM EDT No completed No [facility] 04/04/2020 10:01:00 AM EDT Former smoker completed Former smoker [facility] 04/04/2020 10:01:00 AM EDT 8 yrs ago completed 8 yrs ago [facility] 04/04/2020 10:01:00 AM EDT No completed No [facility] 04/04/2020 10:01:00 AM EDT No completed No [facility] 04/04/2020 10:01:00 AM EDT Former smoker completed Former smoker [facility] Smoking 04/04/2020 10:01:00 AM EDT Former smoker completed Former smoker [facility] Vital Signs ID Date Data Source UNK Name Value Range Interpretation Code Description Data Source(s) Systolic blood pressure 112 mm[Hg] 112 mm[Hg] [facility] ([facility]) Diastolic blood pressure 56 mm[Hg] 56 mm[Hg] [facility] ([facility]) Body height 59 [in_i] 59 [in_i] [facility] [facility] ([facility]) 4'11" Body weight 82.00 [lb_av] 82.00 [lb_av] [facility] ([facility]) Body mass index (BMI) [Ratio] 16.6 kg/m2 16.6 k g/m2 [facility] ([facility]) [place] body weight 100 [lb_av] 100 [lb_av] [facility] Body weight 37.195 kg 37.195 kg [facility] ([facility]) Body surface area Derived from formula 1.26 m2 1.26 m2 [facility] ([facility]) Body weight 37.649 kg 37.649 kg [facility] ([facility]) Oxygen saturation in Arterial blood by Pulse oximetry 96 % 96 % [facility] ([facility]) Body surface area Derived from formula 1.27 m2 1.27 m2 [facility] ([facility]) Body temperature 95.9 [degF] 95.9 [degF] [facility] ([facility]) Body weight 83.00 [lb_av] 83.00 [lb_av] [facility] ([facility]) Body mass index (BMI) [Ratio] 16.8 kg/m2 16.8 k g/m2 [facility] ([facility]) Body height 59 [in_i] 59 [in_i] [facility] ([facility]) 4'11" [place] body weight 100 [lb_av] 100 [lb_av] [facility] Body surface area Derived from formula 1.27 m2 1.27 m2 [facility] ([facility]) Diastolic blood pressure 70 mm[Hg] 70 mm[Hg] [facility] ([facility]) Systolic blood pressure 100 mm[Hg] 100 mm[Hg] [facility] ([facility]) Heart rate 107 /min 107 /min [facility] ([facility]) Oxygen saturation in Arterial blood by Pulse oximetry 96 % 96 % [facility] ([facility]) Body temperature 95.9 [degF] 95.9 [degF] [facility] ([facility]) Body height 59 [in_i] 59 [in_i] [facility] ([facility]) 4'11" Body weight 83.00 [lb_av] 83.00 [lb_av] [facility] ([facility]) Body mass index (BMI) [Ratio] 16.8 kg/m2 16.8 k g/m2 [facility] ([facility]) [place] body weight 100 [lb_av] 100 [lb_av] [facility] ([facility]) Body weight 37.649 kg 37.649 kg [facility] ([facility]) Heart rate 123 /min 123 /min [facility] ([facility]) Oxygen saturation in Arterial blood by Pulse oximetry 92 % 92 % [facility] ([facility]) Body height 59 [in_i] 59 [in_i] [facility] ([facility]) 4'11" Body weight 93.00 [lb_av] 93.00 [lb_av] [facility] ([facility]) Body temperature 99.2 [degF] 99.2 [degF] [facility] ([facility]) Body weight 42.185 kg 42.185 kg [facility] ([facility]) [place] body weight 100 [lb_av] 100 [lb_av] [facility] ([facility]) Body mass index (BMI) [Ratio] 18.8 kg/m2 18.8 k g/m2 [facility] ([facility]) Body surface area Derived from formula 1.33 m2 1.33 m2 [facility] ([facility]) Systolic blood pressure 120 mm[Hg] 120 mm[Hg] [facility] Diastolic blood pressure 80 mm[Hg] 80 mm[Hg] [facility] ([facility]) Body weight 39.917 kg 39.917 kg [facility] ([facility]) [place] body weight 100 [lb_av] 100 [lb_av] [facility] ([facility]) Body mass index (BMI) [Ratio] 17.8 kg/m2 17.8 k g/m2 [facility] ([facility]) Body surface area Derived from formula 1.30 m2 1.30 m2 [facility] ([facility]) Body weight 88.00 [lb_av] 88.00 [lb_av] [facility] ([facility]) Systolic blood pressure 110 mm[Hg] 110 mm[Hg] [facility] ([facility]) Diastolic blood pressure 80 mm[Hg] 80 mm[Hg] [facility] ([facility]) Heart rate 105 /min 105 /min [facility] ([facility]) Oxygen saturation in Arterial blood by Pulse oximetry 98 % 98 % [facility] ([facility]) Body height 59 [in_i] 59 [in_i] [facility] ([facility]) 4'11" Systolic blood pressure 110 mm[Hg] 110 mm[Hg] [facility] ([facility]) Diastolic blood pressure 70 mm[Hg] 70 mm[Hg] [facility] ([facility]) Heart rate 99 /min 99 /min [facility] ([facility]) Oxygen saturation in Arterial blood by Pulse oximetry 100 % 100 % [facility] ([facility]) Body temperature 97.4 [degF] 97.4 [degF] [facility] ([facility]) Body height 59 [in_i] 59 [in_i] [facility] ([facility]) 4'11" Body weight 85.00 [lb_av] 85.00 [lb_av] [facility] ([facility]) Body mass index (BMI) [Ratio] 17.2 kg/m2 17.2 k g/m2 [facility] ([facility]) [place] body weight 100 [lb_av] 100 [lb_av] [facility] ([facility]) Body weight 38.556 kg 38.556 kg [facility] ([facility])
[2021-04-09] MEDS ORDERED: ACETAMINOPHEN 325 MG TAB PO ONE (01:10)
[2021-04-09] MEDS ORDERED: IBUPROFEN 600MG TAB PO ONE (01:20)
[2021-04-09 01:52] LABS: BASO # 0.1 10^3/uL (0.0-0.2); BASO % 0.3 % (0.0-1.0); EOS % 0.1 % (0.0-3.0); HEMATOCRIT 47.9 % (36.0-47.0); HEMOGLOBIN 15.3 g/dl (12.0-15.5); LYMPH # 1.5 10^3/uL (1.5-5.0); LYMPH % 6.2 % (24.0-44.0); MEAN CORPUSCULAR HEMOGLOBIN 30.4 pg (27.0-33.0); MEAN CORPUSCULAR HGB CONC 31.9 g/dl (32.0-36.5); MEAN CORPUSCULAR VOLUME 95.2 fl (80.0-96.0); MONO # 1.3 10^3/uL (0.0-0.8); MONO % 5.5 % (2.0-8.0); NEUTROPHILS # 20.9 10^3/uL (1.5-8.5); NEUTROPHILS % 87.1 % (36.0-66.0); PLATELET COUNT, AUTOMATED 230 10^3/uL (150-450); RED BLOOD COUNT 5.03 10^6/uL (4.00-5.40)
--- NOTE | 2021-04-09 02:30 | REPVR ---
PROCEDURE INFORMATION: Exam: XR Chest Exam date and time: 04/09/2021 1:07 AM Age: 60 years old Clinical indication: Other: Dyspnea; Additional info: Dyspnea/cough TECHNIQUE: Imaging protocol: XR of the chest. Views: 1 view. COMPARISON: CR PORTABLE CHEST X-RAY 10/13/2020 9:26 AM FINDINGS: Lungs: Improved aeration of the right lung which may reflect decreased right pleural effusion or decreased atelectasis. Residual right hilar mass with atelectasis or consolidation of the right upper lobe persists. Residual infiltrate and atelectasis remains in the right base. Pleural spaces: Question of right pleural effusion. Decreased left pleural effusion and decreased left base infiltrate or atelectasis. Heart/Mediastinum: Unremarkable. No gross cardiomegaly. Bones/joints: Unremarkable. IMPRESSION: 1. Resolution of left pleural effusion and left base infiltrate and atelectasis since 10/13/2020. 2. Improved aeration of the right lung which may reflect decreased atelectasis and/or right pleural effusion. Residual volume loss persists with question of right pleural effusion and right hilar mass with right upper lobe atelectasis. Some residual infiltrate and atelectasis persists within the aerated lung. Electronically signed by: Gab Haji On 04/09/2021 02:29:00 AM
[2021-04-09] MEDS ORDERED: NS 1,000 ML IV ONE ×3 (02:35→13:25)
[2021-04-09 03:13] LABS: ALBUMIN 3.3 GM/DL (3.2-5.2); ALT/SGPT 32 U/L (12-78); BILIRUBIN,DIRECT 0.1 MG/DL (0.0-0.2); BILIRUBIN,TOTAL 0.6 MG/DL (0.2-1.0); BLOOD UREA NITROGEN 21 MG/DL (7-18); CALCIUM LEVEL 9.1 MG/DL (8.5-10.1); CARBON DIOXIDE LEVEL 27 MEQ/L (21-32); CHLORIDE LEVEL 100 MEQ/L (98-107); CK-MB VALUE MASS < 1.0 NG/ML (<3.6); CPK CREATINE PHOSPHOKINASE 42 U/L (26-192); CREATININE FOR GFR 1.02 MG/DL (0.55-1.30); GLOMERULAR FILTRATION RATE 59.3 (>51); GLUCOSE, FASTING 113 MG/DL (70-100); MB/CK RELATIVE INDEX 2.38 (< OR =4); POTASSIUM SERUM 3.5 MEQ/L (3.5-5.1); SODIUM LEVEL 137 MEQ/L (136-145); TOTAL PROTEIN 6.9 GM/DL (6.4-8.2); TROPONIN I < 0.02 NG/ML (< 0.10)
[2021-04-09] MEDS ORDERED: PIPERACILLIN/TAZOBACTAM SOD 3.375 GM in D5W MINI-BAG PLUS 50 ML IV ONE (04:25)
[2021-04-09] MEDS ORDERED: VANCOMYCIN HCL 1,000 MG, VIAL MATE ADAPTER 1 EACH in NS 250 ML IV ONE (04:25)
--- NOTE | 2021-04-09 04:28 | REPVR ---
PROCEDURE INFORMATION: Exam: CT Chest Without Contrast; Diagnostic Exam date and time: 04/09/2021 3:32 AM Age: 60 years old Clinical indication: Shortness of breath; Additional info: Sepsis, SOB, TECHNIQUE: Imaging protocol: Diagnostic computed tomography of the chest without contrast. Radiation optimization: All CT scans at this facility use at least one of these dose optimization techniques: automated exposure control; mA and/or kV adjustment per patient size (includes targeted exams where dose is matched to clinical indication); or iterative reconstruction. COMPARISON: PET/CT Skull/mid thigh 12/08/2020 11:38 AM FINDINGS: Lungs: There is increased volume loss in the right hemithorax since the prior study with increased right base infiltrate and atelectasis of the remaining aerated lung. Right upper lobe atelectasis in the medial right apex. There is occlusion or severe narrowing or pruning of multiple right bronchi from the right mainstem bronchus and may reflect a central hilar mass. There is infiltrate and atelectasis or consolidation extending into the remaining aerated right lung. Pleural spaces: Small loculated fluid collection anteriorly which is decreased since a prior study. There is trace loculated fluid in the posterior right apex which is similar. There is resolution of left pleural effusion since the prior study. Heart: Unremarkable. No cardiomegaly. No pericardial effusion. Pulmonary arteries: The main pulmonary artery measures 19 mm. Aorta: The ascending thoracic aorta measures 25 mm. Lymph nodes: Unremarkable. No enlarged lymph nodes. Bones/joints: Unremarkable. No acute fracture. Soft tissues: Unremarkable. IMPRESSION: 1. Resolution of left pleural effusion and decreased loculated fluid in the anterior right hemithorax since 07/11/2020. Some residual fluid is noted anteriorly. Trace loculated fluid in the posterior left apex is similar. 2. Increased volume loss in the right hemithorax. There is severe pruning and obstruction of branches of the right bronchus which is increased since the prior study. There is persistent complete atelectasis of the right upper lobe and increased infiltrates and atelectasis in the remaining aerated right lung which has decreased volume. Electronically signed by: Gab Haji On 04/09/2021 04:28:04 AM
--- NOTE | 2021-04-09 04:31 | REPVR ---
PROCEDURE INFORMATION: Exam: CT Abdomen And Pelvis Without Contrast Exam date and time: 04/09/2021 3:32 AM Age: 60 years old Clinical indication: Abdominal pain; Generalized; Additional info: Sepsis, SOB, TECHNIQUE: Imaging protocol: Computed tomography of the abdomen and pelvis without contrast. Radiation optimization: All CT scans at this facility use at least one of these dose optimization techniques: automated exposure control; mA and/or kV adjustment per patient size (includes targeted exams where dose is matched to clinical indication); or iterative reconstruction. COMPARISON: PET/CT Skull/mid thigh 12/08/2020 11:38 AM FINDINGS: Liver: Normal. No mass. Gallbladder and bile ducts: Question of layering sludge in the gallbladder. Pancreas: Normal. No ductal dilation. Spleen: Normal. No splenomegaly. Adrenal glands: Normal. No mass. Kidneys and ureters: Normal. No hydronephrosis. Stomach and bowel: Mild stool and gas throughout much of the colon. Minimal sigmoid diverticulosis without diverticulitis. Appendix: A normal appendix is seen. Intraperitoneal space: Unremarkable. No free air. No significant fluid collection. Vasculature: There is moderate atherosclerotic calcification of the abdominal aorta with extension into the iliac arteries. There is question of some stenosis of the distal aorta and proximal iliac arteries. Lymph nodes: Unremarkable. No enlarged lymph nodes. Urinary bladder: Unremarkable as visualized. Reproductive: Unremarkable as visualized. Bones/joints: Unremarkable. No acute fracture. Soft tissues: Unremarkable. IMPRESSION: 1. Question of minimal layering sludge in the gallbladder. 2. Minimal sigmoid diverticulosis without diverticulitis. 3. Atherosclerotic calcification of the aorta and proximal iliac arteries with question of some stenosis, particularly involving the distal aorta and right common iliac artery. 4. Otherwise negative CT abdomen/pelvis. Electronically signed by: Gab Haji On 04/09/2021 04:31:40 AM
--- OUTSIDE RECORDS SUMMARY | 2021-04-09 04:32 | CCD ---
Author Author [facility] Organization [facility] Address Unknown Phone Unavailable Care Team Providers Care [facility] Name Role Phone Ioana Griffith MD Unavailable [...] Unavailable Unavailable Ioana Griffith MD Unavailable Unavailable Ioaan Griffith MD Unavailable Unavailable Ioana Griffith MD [...] Unavailable SEARS, A CHERIE DO Unavailable Unavailable Lenox, E Kristen FURNACE INSTALLER HELPER Unavailable Unavailable [place], E Kristen FURNACE INSTALLER HELPER Unavailable Unavailable [place], E Kristen FURNACE INSTALLER HELPER Unavailable Unavailable [place], E Kristen FURNACE INSTALLER HELPER Unavailable Unavailable [place], E Kristen FURNACE INSTALLER HELPER Unavailable Unavailable [place], E Kristen FURNACE INSTALLER HELPER Unavailable Unavailable [place], E Kristen FURNACE INSTALLER HELPER Unavailable Unavailable [place], E Kristen FURNACE INSTALLER HELPER Unavailable Unavailable [place], E Kristen FURNACE INSTALLER HELPER Unavailable Unavailable [place], E Kristen FURNACE INSTALLER HELPER Unavailable Unavailable [place], E Kristen FURNACE INSTALLER HELPER Unavailable Unavailable [place], E Kristen FURNACE INSTALLER HELPER Unavailable Unavailable [place], E Kristen FURNACE INSTALLER HELPER Unavailable Unavailable Re-disclosure Warning The records that [...] is protected by Article 27-F of the [facility] Public Health law. If you continue you may have access to information: Regarding HIV / AIDS; Provided by facilities licensed or operated by the [facility] Office of Mental Health; or Provided by the [facility] Office for People With Developmental Disabilities. If such information is present, then the following [facility] mandated warning applies: This information has [...] law may result in a fine or intermediate sentence or both. A general authorization for the release of medical or other information is NOT sufficient authorization for further disc losure. Family History Family Member Name Family Member Gender Family Member Status Date o f Status Description Data Source(s) Unknown Condition [facility] Unknown Condition [facility] Unknown Condition [facility] Unknown Condition [facility] Unknown Condition [facility] Unknown Condition [facility] Unknown Condition [facility] Unknown Condition [facility] Unknown Condition [facility] Unknown Condition [facility] Unknown Condition [facility] Unknown Condition [facility] Unknown Condition [facility] Unknown Condition [facility] Unknown Condition [facility] Unknown Condition [facility] Unknown Male Problem [facility] ([facility] () - age 71 Unknown Unknown Problem [facility] ([facility], ) Encounters Encounter Providers Location Date Indications Data Source(s ) Outpatient Attender: SAGE Pollard/Keith/Az alonzo/Marilyn 01/19/2021 09:20:00 AM EDT [facility] ([facility], ) Outpatient Attender: CHERIE Calderon/Keith/Compa/Reinmary 12/16/2020 03:30:00 PM EDT [facility] ([facility], ) Outpatient Attender: Daisy Cordova: Daisy goodson MD 10/22/2020 11:01:00 AM EDT - 10/22/2020 11:40:00 AM EDT [facility] Outpatient Attender: CHERIE BRANHAM DO Latrice/[place]/Compa/Reindl 10/20/2020 02:30:00 PM EDT [facility] ([facility] Outpatient Attender: Amanda Kayang/[place]/Compa/Smith ndl 10/14/2020 01:23:00 AM EDT [facility] ([facility] Outpatient Attender: Amanda Kayang/[place]/Compa/Smith ndl 10/13/2020 01:23:00 AM EDT [facility] ([facility] Outpatient Attender: Amanda Pollard/[place]/Compa/Smith ndl 10/12/2020 01:23:00 AM EDT [facility] ([facility] Outpatient Attender: CHERIE BRANHAM DO Lartice/[place]/Compa/Reindl 05/16/2020 08:15:00 AM EST [facility] ([facility] Outpatient Attender: Daisy Griffith MDReferrer: Daisy goodson MD 05/12/2020 01:58:00 PM EST - 05/12/2020 02:50:00 PM EST [facility] Outpatient Attender: Daisy Griffith MDReferrer: Daisy goodson MD 04/21/2020 01:35:00 PM EDT - 04/21/2020 02:14:00 PM EDT [facility] Outpatient Attender: CHERIE BRANHAM DO [place]/Compa/Reindl 04/08/2020 01:23:00 AM EDT [facility] ([facility] Outpatient Attender: CHERIE BRANHAM DO [place]/Compa/Reindl 04/07/2020 01:23:00 AM EDT [facility] ([facility] Outpatient Attender: CHERIE BRANHAM DO [place]/Compa/Reindl 04/06/2020 01:23:00 AM EDT [facility] ([facility] Outpatient LERAYDC 03/18/2020 03:02:01 PM EDT [facility] Outpatient LERAYDC 03/18/2020 03:01:01 PM EDT [facility] Outpatient LERAYDC 03/18/2020 11:01:03 AM EDT [facility] Outpatient LERAYDC 03/17/2020 10:26:02 AM EDT [facility] Outpatient LERAYDC 02/25/2020 08:19:00 AM EDT [facility] Outpatient LERAYDC 02/21/2020 04:09:00 PM EDT [facility] Outpatient LERAYDC 02/21/2020 09:08:01 AM EDT [facility] Outpatient LERAYDC 02/19/2020 09:53:00 AM EDT [facility] Outpatient Attender: CHERIE Valladares rer: CHERIE BRANHAM DOConsultant: Kristen Fisher FURNACE INSTALLER HELPER 01/17/2020 10:47:00 AM EDT - 01/17/2020 10:57:[address] [facility] Immunizations Vaccine Date Status Description Data Source(s) COVID-19 Vaccine Tristan (J&J) 10/03/2020 12:00:00 AM EDT completed [facility] COVID-19 VACCINE Tristan 10/03/2020 12:00:00 AM EDT completed [facility] Vaccine Series Complete: YESThis Data wa s Submitted to [facility] Via [employer]. New in 2011. IIV4 05/16/2020 08:13:00 AM EST completed [facility] ([facility], ) Medications Medication Brand Name Start Date Product Form Dose Route Admi nistrative Instructions Pharmacy Instructions Status Indications Reaction Description Data Source(s) Codeine Phosphate 2 MG/ML / Guaifenesin 20 MG/ML Oral Soluti on Virtussin A/C 12/16/2020 12:00:00 AM EDT ORAL active [facility] ([facility], ) Azelastine HCL (Nasal) Azelastine HCL (Nasal) 12/16/2020 12:00:00 AM E DT active [facility] ([facility] ) Amoxicillin 500 MG / Clavulanate 125 MG Oral Tablet Amoxicillin-Pot Clavulanate (Augmentin) 500-125 mg tablet Amoxicillin-Pot Clavulanate (Augmentin) 500-125 mg tablet 10/22/2020 11:39:35 AM EDT 1 TAB active [facility] Hydromorphone Hydrochloride 1 MG/ML Oral Solution [Dilaudid] Dilaudid 10/20/2020 12:00:00 AM EDT completed [facility] ([facility], ) Ketorolac Tromethamine 10 MG Oral Tablet Ketorolac Trometham ine 10/20/2020 12:00:00 AM EDT ORAL completed [facility] ([facility] ) Omeprazole 40 MG Delayed Release Oral Capsule Omeprazole 10/20/2020 12:00:00 AM EDT ORAL completed [facility] ([facility] ) Levothyroxine Sodium 0.075 MG Oral Table t [Euthyrox] Levothyroxine (Euthyrox) 75 mcg tablet Levothyroxine (Euthyrox) 75 mcg tablet 07/02/2020 03:25:24 PM ES T 0 active [facility] Codeine Phosphate 2 MG/ML / Guaifenesin 20 MG/ML Oral Soluti on Cheratussin ac 05/16/2020 12:00:00 AM EST ORAL completed [facility] ([facility] ) Nystatin 04/21/2020 02:08:08 PM EDT 5 ML active [facility] Nystatin 04/21/2020 02:08:08 PM EDT 5 ML active [facility] Nystatin 04/21/2020 02:08:08 PM EDT 5 ML active [facility] Hydromorphone Hydrochloride 2 MG Oral Tablet Hydromorphone 04/21/2020 01:47:03 PM EDT active [facility] Hydromorphone Hydrochloride 2 MG Oral Tablet Hydromorphone 04/21/2020 01:47:03 PM EDT completed [facility] Hydromorphone Hydrochloride 2 MG Oral Tablet Hydromorphone 04/21/2020 01:47:03 PM EDT completed [facility] azelastine Azelastine Azelastine 04/21/2020 01:46:47 PM EDT active [facility] azelastine Azelastine Azelastine 04/21/2020 01:46:47 PM EDT active [facility] azelastine Azelastine Azelastine 04/21/2020 01:46:47 PM EDT active [facility] 120 ACTUAT Budesonide 0.16 MG/ACTUAT / f ormoterol fumarate 0.0045 MG/ACTUAT Metered Dose Inhaler Budesonide-Formoterol Budesonide-Formoterol 04/21/2020 01:46:36 PM EDT active [facility] 120 ACTUAT Budesonide 0.16 MG/ACTUAT / f ormoterol fumarate 0.0045 MG/ACTUAT Metered Dose Inhaler Budesonide-Formoterol Budesonide-Formoterol 04/21/2020 01:46:36 PM EDT active [facility] 120 ACTUAT Budesonide 0.16 MG/ACTUAT / f ormoterol fumarate 0.0045 MG/ACTUAT Metered Dose Inhaler Budesonide-Formoterol Budesonide-Formoterol 04/21/2020 01:46:36 PM EDT active [facility] Albuterol 0.417 MG/ML Inhalant Solution Albuterol Sulfate Al buterol Sulfate 04/21/2020 01:46:21 PM EDT active [facility] Albuterol 0.417 MG/ML Inhalant Solution Albuterol Sulfate Al buterol Sulfate 04/21/2020 01:46:21 PM EDT completed [facility] Albuterol 0.417 MG/ML Inhalant Solution Albuterol Sulfate Al buterol Sulfate 04/21/2020 01:46:21 PM EDT completed [facility] Prednisone 10 MG Oral Tablet Prednisone 04/21/2020 01:45:48 PM EDT completed [facility] Prednisone 10 MG Oral Tablet Prednisone 04/21/2020 01:45:48 PM EDT completed [facility] Prednisone 10 MG Oral Tablet Prednisone 04/21/2020 01:45:48 PM EDT active [facility] Levofloxacin 750 MG Oral Tablet Levofloxacin 04/21/2020 01:45:29 PM EDT 750 MG completed [facility] Levofloxacin 750 MG Oral Tablet Levofloxacin 04/21/2020 01:45:29 PM EDT 750 MG active [facility] Levofloxacin 750 MG Oral Tablet Levofloxacin 04/21/2020 01:45:29 PM EDT 750 MG completed [facility] ferrous sulfate 325 MG Oral Tablet Ferrous Sulfate Ferrous S ulfate 04/21/2020 01:44:29 PM EDT 325 MG active [facility] ferrous sulfate 325 MG Oral Tablet Ferrous Sulfate Ferrous S ulfate 04/21/2020 01:44:29 PM EDT 325 MG completed [facility] ferrous sulfate 325 MG Oral Tablet Ferrous Sulfate Ferrous S ulfate 04/21/2020 01:44:29 PM EDT 325 MG completed [facility] Vicks Air Purifier/Hepa 04/14/2020 12:00:00 AM EDT active [facility] ([facility], ) Levothyroxine Sodium 0.075 MG Oral Tablet Levothyroxine 11/12/2019 12:42:06 PM EDT 75 MCG completed [facility] tramadol hydrochloride 50 MG Oral Tablet Tramadol Tramadol 09/13/2019 11:43:27 AM EDT 50 MG completed [facility] tramadol hydrochloride 50 MG Oral Tablet Tramadol Tramadol 09/13/2019 11:43:27 AM EDT 50 MG completed [facility] tramadol hydrochloride 50 MG Oral Tablet Tramadol Tramadol 09/13/2019 11:43:27 AM EDT 50 MG completed [facility] Insurance Providers Payer name Policy type / Coverage type Policy ID Covered republican ID Covered republican's relationship to alva Policy Alva Plan Information [place] [id number] SP [id number] [place] Other 0 [id number] Self 0 [place] [id number] SP [id number] [place] Other 0 [id number] Self 0 [place] Other 0 [id number] Self 0 [place] Other 0 [id number] Self 0 [place] Other 0 [id number] Self 0 [place] [id number] SP [id number] 400 [place] Other 0 [id number] Self 0 [place] Other 0 [id number] Self 0 [place] Other 0 [id number] Self 0 [place] [id number] SP [id number] 400 [place] [id number] SP [id number] 400 [place] [id number] SP [id number] [place] [id number] SP [id number] [place] [id number] SP [id number] 400 [place] [id number] SP [id number] 400 [place] I [id number] Self [id number] [place] [id number] SP [id number] 400 [place] [id number] SP [id number] 400 [place] [id number] SP [id number] 400 Medicaid [facility] Other 0 [id number] Self 0 [id number] [place] [id number] SP [id number] 400 [place] CARE [facility] [id number] S [id number] [place] [id number] SP [id number] 400 Managed Care [place] P UNAVAILABLE S UNAVAILABLE Medicaid S UNAVAILABLE S UNAVAILA BLE [place] CARE [facility] [id number] 18 [id number] Medicaid Dental P [id number] S [id number] [facility] [employer] [id number] Self [id number] [facility] [employer] [id number] Self [id number] [facility] [employer] [id number] Self [id number] Medicaid of [place] Other 0 [id number] Self 0 [place] Other 0 [id number] Self 0 [facility] [employer] [id number] Self [id number] [place] Other 0 [id number] Self 0 [place] Other 0 [id number] Self 0 [place] [employer] [place] Medicaid [id number] Self [id number] Medicaid [facility] Other 0 [id number] Self 0 Medicaid [facility] Other 0 [id number] Self 0 [place] [facility] [place] Medicaid [id number] Self [id number] [place] of [place] Other 0 [id number] Self 0 Problems, Conditions, and Diagnoses No Information Surgeries/Procedures Procedure Description Date Indications Data Source(s) OFFICE OUTPATIENT NEW 45 MINUTES 01/19/2021 12:00:00 A M EDT [facility] ([facility], ) OFFICE OUTPATIENT VISIT 25 MINUTES 12/16/2020 12:00:00 AM [facility] OUTPATIENT VISIT 25 MINUTES 10/20/2020 12:00:00 AM EDT [facility] ([facility], ) CRITICAL CARE ILL/INJURED PATIENT INIT 30-74 MIN 10/14 12:00:00 AM EDT [facility] ([facility]) CRITICAL CARE ILL/INJURED PATIENT INIT 30-74 MIN 10/13 12:00:00 AM EDT [facility] ([facility], ) Insertion Of Non-Tunneled Centrally Inserted Central Venous Cortney 10/12/2020 12:00:00 AM EDT [facility] ([facility]) Ultrasound Guidance For Vascular Access Requiring Ultrasound Eval 10/12/2020 12:00:00 AM EDT [facility] ([facility]) CRITICAL CARE ILL/INJURED PATIENT INIT 30-74 MIN 10/12 12:00:00 AM EDT [facility] ([facility], ) CRITICAL CARE ILL/INJURED PATIENT ADDL 30 MIN 10/13/19 12:00:00 AM EDT [facility] ([facility], ) Bronchoscopy, Rigid Or Flex, Diagnostic W/W/O Cell Washing 05/06/2020 12:00:00 AM EST [facility] ([facility], ) Results ID Date Data Source [id number] 10/22/2020 11:18:00 AM EDT [facility] Patient Name: KALPESH FERRARA : 1960 Sex: F Pt Unit #: [id number] Location:[facility] Provider: Visit Date/Time: 10/22/20 Primary Insurance: [...] feel a little better, Still taking Antibiotics, Bioinformatics Engineer Required: No Accompanied by: Self / Same [...] low BP, ? cat bite and pneumonia [facility] Medical History Lung cancer Pleural effusion Surgical [...] of unspecified bronchus or lung SNOMED Code(s): 913279707 Category: Medical Qualifiers: Laterality: unspecified laterality Lung [...] 1 Month Coding Level of Care Code 27067 Est Pt Extended Comp Exam Expanded Problem [...] rce(s) Supporting Document(s) ID Date Data Source [id number] 10/12/2020 09:04:00 AM EDT [facility] Name Value Range Interpretation Code Description Data Linh rce(s) Supporting Document(s) SARS-CoV-2 (COVID 19) NEGATIVE - SARS-CoV-2 (COVID19) [facility] This lab was ordered by [facility] a nd reported by [facility]. ID Date Data Source [id number] 05/12/2020 02:02:00 PM [facility] Patient Name: KALPESH FERRARA : 1960 Sex: F Pt Unit #: [id number] Location:[facility] Provider: Visit Date/Time: 05/12/20 Primary Insurance: [facility] Secondary Insurance: Self Pay Intake Vital Signs [...] and how to get rid of it, Bioinformatics Engineer Required: No Accompanied by: Self / Same [...] Screening Screening Have you traveled outside of [facility] or [facility] in the last 14 days.: No Has [...] of unspecified bronchus or lung SNOMED Code(s): 014156830 Category: Medical Qualifiers: Laterality: unspecified laterality Lung location: unspecified part of lung Qualified Code(s): C34.90 - Malignant neoplasm of unspecified part of unspecified bronchus or lung (3) Pleural effusion: Status: Acute Code(s): J90 - Pleural effusion, not elsewhere classified SNOMED Code(s): 28171991 Category: Medical (4) Encounter for routine adult [...] rce(s) Supporting Document(s) ID Date Data Source [id number] 05/01/2020 12:00:00 PM EST [facility] Name Value Range Interpretation Code Description Data Linh rce(s) Supporting Document(s) SARS coronavirus 2 RNA [facility] This lab was ordered by [facility] and reported by [facility]. ID Date Data Source [id number] 04/21/2020 01:39:00 PM EDT [facility] Patient Name: KALPESH FERRARA : 1960 Sex: F Pt Unit #: [id number] Location:[facility] Provider: Visit Date/Time: 04/21/20 Primary Insurance: [facility] Secondary Insurance: Self Pay Intake Vital Signs [...] Visit Reasons: Hospital Discharge Follow-up Nurse Note: [facility] D/C follow up Pleural Effusion right lung has been in and out 3X since 03/24/2020, states she is mostly feeling better, but is very weak - has a hard time walking, but if she is not active she feels pretty good - had a mucinex pil l caught in throat for months, feels its where infection originated? Bioinformatics Engineer Required: No Accompanied by: Self / Same [...] Screening Screening Have you traveled outside of [facility] or [facility] in the last 14 days.: No Has patient experienced coronavirus symptoms: No [facility] Medical History Lung cancer Pleural effusion Surgical [...] Pleural effusion, not elsewhere classified SNOMED Code(s): 55257286 Category: Medical (3) Lung cancer: Status: Acute Code(s): C34.90 - Malignant neoplasm of unspecified part of unspecified bronchus or lung SNOMED Code(s): 978833040 Category: Medical Qualifiers: Laterality: unspecified laterality Lung [...] rce(s) Supporting Document(s) ID Date Data Source [id number] 03/18/2020 10:56:51 AM EDT [facility] Current Problems: DENTAL CARIES EXTENDIN G [...] and occlusion. Case will be sent to [facility] to finalize maxillary and mandibular dentureNv: [email or web address] Merchant DDS by sabine (03/18/2020 11:00 AM): Tooth Notes and Watches: Assessment & Plan Medications:EUTHYROX TABLETAllergies:No Known Allergies (updated 11/01/2018) Name Value Range Interpretation Code Description Data Linh rce(s) Supporting Document(s) ID Date Data Source [id number] 02/21/2020 03:19:24 PM EDT [facility] Current Problems: DENTAL CARIES EXTENDIN G [...] patients) Case will be sent back to [facility] to move upper anterior , also Pt [...] completed Patient is a former smoker [facility] ([facility], ) Smoking 04/04/2020 11:01:00 AM EDT Former smoker completed Former smoker [facility] 04/04/2020 10:01:00 AM EDT 8 yrs ago completed 8 yrs ago [facility] 04/04/2020 10:01:00 AM EDT No completed [facility] 04/04/2020 10:01:00 AM EDT No completed No [facility] 04/04/2020 10:01:00 AM EDT Former smoker completed Former smoker [facility] Smoking 04/04/2020 10:01:00 AM EDT Former smoker completed Former smoker [facility] 04/04/2020 10:01:00 AM EDT 8 yrs ago completed 8 yrs ago [facility] 04/04/2020 10:01:[address] No [address] [facility] 04/04/2020 10:01:00 AM EDT No completed No [facility] 04/04/2020 10:01:00 AM EDT Former smoker completed Former smoker [facility] 04/04/2020 10:01:00 AM EDT 8 yrs ago completed 8 yrs ago [facility] 04/04/2020 10:01:00 AM EDT No completed No [facility] 04/04/2020 10:01:00 AM EDT No completed No [facility] 04/04/2020 10:01:00 AM EDT Former smoker completed Former smoker [facility] Smoking 04/04/2020 10:01:00 AM EDT Former smoker completed Former smoker [facility] Vital Signs ID Date Data Source UNK Name Value Range Interpretation Code Description Data Source(s) Systolic blood pressure 112 mm[Hg] 112 mm[Hg] M [facility] ([facility]) Diastolic blood pressure 56 mm[Hg] 56 mm[Hg] [facility] ([facility]) Body height 59 [in_i] 59 [in_i] [facility] ([facility]) 4'11" Body weight 82.00 [lb_av] 82.00 [lb_av] [facility] ([facility]) Body mass index (BMI) [Ratio] 16.6 kg/m2 16.6 k g/m2 [facility] ([facility]) [place] body weight 100 [lb_av] 100 [facility]_av[facility] Body weight 37.195 kg 37.195 kg [facility] ([facility]) Body surface area Derived from formula 1.26 m2 1.26 m2 [facility] ([facility]) Body weight 37.649 kg 37.649 kg [facility] ([facility]) Oxygen saturation in Arterial blood by Pulse oximetry 96 % 96 % [facility] ([facility]) Body temperature 95.9 [degF] 95.9 [degF] [facility] ([facility]) Body weight 83.00 [lb_av] 83.00 [lb_av] [facility] ([facility]) Body surface area Derived from formula 1.27 m2 1.27 m2 [facility] ([facility]) Body mass index (BMI) [Ratio] 16.8 kg/m2 16.8 k g/m2 [facility] ([facility]) Body height 59 [in_i] 59 [in_i] [facility] ([facility]) 4'11" [place] body weight 100 [lb_av] 100 [lb_av] [facility] Body surface area Derived from formula 1.27 m2 1.27 m2 [facility] ([facility]) Systolic blood pressure 100 mm[Hg] 100 mm[Hg] [facility] ([facility]) Diastolic blood pressure 70 mm[Hg] 70 mm[Hg] [facility] ([facility]) Heart rate 107 /min 107 /min [facility] ([facility]) Oxygen saturation in Arterial blood by Pulse oximetry 96 % 96 % [facility] ([facility]) Body temperature 95.9 [degF] 95.9 [degF] [facility] ([facility]) Body height 59 [in_i] 59 [in_i] [facility] ([facility]) 4'11" Body weight 83.00 [lb_av] 83.00 [lb_av] [facility] ([facility]) Body mass index (BMI) [Ratio] 16.8 kg/m2 16.8 k g/m2 [facility] ([facility]) [place] body weight 100 [lb_av] 100 [lb_av] [facility] ([facility]) Body weight 37.649 kg 37.649 kg [facility] ([facility]) Heart rate 123 /min 123 /min [facility] ([facility]) Oxygen saturation in Arterial blood by Pulse oximetry 92 % 92 % [facility] ([facility]) Body height 59 [in_i] 59 [in_i] [facility] ([facility]) 4'11" Body temperature 99.2 [degF] 99.2 [degF] [facility] ([facility]) Body weight 93.00 [lb_av] 93.00 [lb_av] [facility] ([facility]) Body weight 42.185 kg 42.185 kg [facility] ([facility]) [place] body weight 100 [lb_av] 100 [lb_av] [facility] ([facility]) Body mass index (BMI) [Ratio] 18.8 kg/m2 18.8 k g/m2 [facility] ([facility]) Body surface area Derived from formula 1.33 m2 1.33 m2 [facility] ([facility]) Systolic blood pressure 120 mm[Hg] 120 mm[facility]Hg] [facility] Diastolic blood pressure 80 mm[Hg] 80 mm[Hg] [facility] ([facility]) Body surface area Derived from formula 1.30 m2 1.30 m2 [facility] ([facility]) Body weight 39.917 kg 39.917 kg [facility] ([facility]) Body mass index (BMI) [Ratio] 17.8 kg/m2 17.8 k g/m2 [facility] ([facility]) [place] body weight 100 [lb_av] 100 [lb_av] [facility] ([facility]) Systolic blood pressure 110 mm[Hg] 110 mm[Hg] [facility] Body weight 88.00 [lb_av] 88.00 [lb_av] [facility] ([facility]) Diastolic blood pressure 80 mm[Hg] 80 mm[Hg] [facility] ([facility]) Heart rate 105 /min 105 /min [facility] ([facility]) Oxygen saturation in Arterial blood by Pulse oximetry 98 % 98 % [facility] ([facility]) Body height 59 [in_i] 59 [in_i] [facility] ([facility]) 4'11" Systolic blood pressure 110 mm[Hg] 110 mm[Hg] [facility] ([facility]) Diastolic blood pressure 70 mm[Hg] 70 mm[Hg] [facility] ([facility]) Heart rate 99 /min 99 /min [facility] ([facility]) Oxygen saturation in Arterial blood by Pulse oximetry 100 % 100 % [facility] ([facility]) Body temperature 97.4 [degF] 97.4 [degF] [facility] ([facility]) Body height 59 [in_i] 59 [in_i] [facility] ([facility]) 4'11" Body weight 85.00 [lb_av] 85.00 [lb_av] [facility] ([facility]) Body mass index (BMI) [Ratio] 17.2 kg/m2 17.2 k g/m2 [facility] ([facility]) [place] body weight 100 [lb_av] 100 [lb_av] [facility] ([facility]) Body weight 38.556 kg 38.556 kg [facility] ([facility])
--- OUTSIDE RECORDS SUMMARY | 2021-04-09 04:33 | CCD ---
Author Author [facility] Organization [facility] Address Unknown Phone Unavailable Care Team Providers Care Pick Up Attendant Name Role Phone Iaona Griffith MD Unavailable Unavailable Ioana Griffith [...] Unavailable SEARS, A CHERIE DO Unavailable Unavailable [place], E Kristen DELINQUENCY COUNSELOR Unavailable Unavailable [place], E Kristen DELINQUENCY COUNSELOR Unavailable Unavailable [place], E Kristen DELINQUENCY COUNSELOR Unavailable Unavailable [place], E Kristen DELINQUENCY COUNSELOR Unavailable Unavailable [place], E Kristen DELINQUENCY COUNSELOR Unavailable Unavailable [place], E Kristen DELINQUENCY COUNSELOR Unavailable Unavailable [place], E Kristen DELINQUENCY COUNSELOR Unavailable Unavailable [place], E Kristen DELINQUENCY COUNSELOR Unavailable Unavailable [place], E Kristen DELINQUENCY COUNSELOR Unavailable Unavailable [place], E Kristen DELINQUENCY COUNSELOR Unavailable Unavailable [place], E Kristen DELINQUENCY COUNSELOR Unavailable Unavailable [place], E Kristen DELINQUENCY COUNSELOR Unavailable Unavailable [place], E Kristen DELINQUENCY COUNSELOR Unavailable Unavailable Re-disclosure Warning The records that [...] is protected by Article 27-F of the [facility] Public Health law. If you continue you may have access to information: Regarding HIV / AIDS; Provided by facilities licensed or operated by the [facility] Office of Mental Health; or Provided by the [facility] Office for People With Developmental Disabilities. If such information is present, then the following [facility] mandated warning applies: This information has [...] law may result in a fine or fci sentence or both. A general authorization for the release of medical or other information is NOT sufficient authorization for further disc losure. Family History Family Member Name Family Member Gender Family Member Status Date o f Status Description Data Source(s) Unknown Condition [facility] Unknown Condition [facility] Unknown Condition [facility] Unknown Condition [facility] Unknown Condition [facility] Unknown Condition [facility] Unknown [facility] Unknown Condition [facility] Unknown Condition [facility] Unknown Condition [facility] Unknown Condition [facility] Unknown Condition [facility] Unknown Condition [facility] Unknown Condition [facility] Unknown Condition [facility] Unknown Male Problem [facility] ([facility] () - age 71 Unknown Unknown Problem [facility] ([facility], ) Encounters Encounter Providers Location Date Indications Data Source(s ) Outpatient Attender: SAGE Pollard/Keith/Az alonzo/Marilyn 01/19/2021 09:20:00 AM EDT [facility] ([facility], ) Outpatient Attender: CHERIE Calderon/Keith/Compa/Reinmary 12/16/2020 03:30:00 PM EDT [facility] ([facility] ) Outpatient Attender: Daisy Cordova: Daisy goodson MD 10/22/2020 11:01:00 AM EDT - 10/22/2020 11:40:00 AM EDT [facility] Outpatient Attender: CHERIE BRANHAM DO Latrice/Benton/Compa/Reindl 10/20/2020 02:30:00 PM EDT [facility] ([facility] Outpatient Attender: Amanda Kayang/Benton/Copma/Smith ndl 10/14/2020 01:23:00 AM EDT [facility] ([facility]) Outpatient Attender: Amanda Kayang/Benton/Compa/Smith ndl 10/13/2020 01:23:00 AM EDT [facility] ([facility]) Outpatient Attender: Amanda Pollard/Benton/Compa/Smith ndl 10/12/2020 01:23:00 AM EDT [facility] ([facility]) Outpatient Attender: CHERIE BRANHAM DO Latrice/Benton/Compa/Reindl 05/16/2020 08:15:00 AM EST [facility] ([facility]) Outpatient Attender: Daisy Griffith MDReferrer: Daisy goodson MD 05/12/2020 01:58:00 PM EST - 05/12/2020 02:50:00 PM EST [facility] Outpatient Attender: Daisy Griffith MDReferrer: Daisy goodson MD 04/21/2020 01:35:00 PM EDT - 04/21/2020 02:14:00 PM EDT [facility] Outpatient Attender: CHERIE BRANHAM DO Latrice/Benton/Compa/Reindl 04/08/2020 01:23:00 AM EDT [facility] ([facility]) Outpatient Attender: CHERIE BRANHAM DO Latrice/Benton/Compa/Reindl 04/07/2020 01:23:00 AM EDT [facility] ([facility]) Outpatient Attender: CHERIE BRANHAM DO Latrice/Benton/Compa/Reindl 04/06/2020 01:23:00 AM EDT [facility] ([facility] Outpatient LERAYDC 03/18/2020 03:02:01 PM EDT [facility] Outpatient LERAYDC 03/18/2020 03:01:01 PM EDT [facility]AY[facility] 03/18/2020 11:01:03 AM EDT [facility] 03/17/2020 10:26:02 AM EDT [facility] 02/25/2020 08:19:00 AM EDT [facility] 02/21/2020 04:09:00 PM EDT [facility] 02/21/2020 09:08:01 AM EDT [facility] 02/19/2020 09:53:00 AM EDT [facility] Outpatient Attender: CHERIE Valladares rer: CHERIE BRANHAM DOConsultant: Kristen Fisher DELINQUENCY COUNSELOR 01/17/2020 10:47:00 AM EDT - 01/17/2020 10:57:00 AM EDT [facility] Immunizations Vaccine Date Status Description Data Source(s) COVID-19 Vaccine Tristan (J&J) 10/03/2020 12:00:[address] [facility] COVID-19 VACCINE Tristan 10/03/2020 12:00:00 AM EDT completed [facility] Vaccine Series Complete: YESThis Data wa s Submitted to [facility] Via [employer]. New in 2011. IIV4 05/16/2020 08:13:00 AM EST completed [facility] ([facility], ) Medications Medication Brand Name Start Date Product Form Dose Route Admi nistrative Instructions Pharmacy Instructions Status Indications Reaction Description Data Source(s) Codeine Phosphate 2 MG/ML / Guaifenesin 20 MG/ML Oral Soluti on Virtussin A/C 12/16/2020 12:00:00 AM EDT ORAL active [facility] ([facility], ) Azelastine HCL (Nasal) Azelastine HCL (Nasal) 12/16/2020 12:00:00 AM E DT active [facility] ([facility] ) Amoxicillin 500 MG / Clavulanate 125 MG Oral Tablet Amoxicillin-Pot Clavulanate (Augmentin) 500-125 mg tablet Amoxicillin-Pot Clavulanate (Augmentin) 500-125 mg tablet 10/22/2020 11:39:35 AM EDT [address] [facility] Hydromorphone Hydrochloride 1 MG/ML Oral Solution [Dilaudid] Dilaudid 10/20/2020 12:00:00 AM EDT completed [facility] ([facility] ) Ketorolac Tromethamine 10 MG Oral Tablet Ketorolac Trometham ine 10/20/2020 12:00:00 AM EDT ORAL completed [facility] ([facility] ) Omeprazole 40 MG Delayed Release Oral Capsule Omeprazole 10/20/2020 12:00:00 AM EDT ORAL completed [facility] ([facility] ) Levothyroxine Sodium 0.075 MG Oral Table t [Euthyrox] Levothyroxine (Euthyrox) 75 mcg tablet Levothyroxine (Euthyrox) 75 mcg tablet 07/02/2020 03:25:24 PM ES T 0 active [facility] Codeine Phosphate 2 MG/ML / Guaifenesin 20 MG/ML Oral Soluti on Cheratussin ac 05/16/2020 12:00:00 AM EST ORAL completed [facility] ([facility] ) Nystatin 04/21/2020 02:08:08 PM EDT [address] [facility] Nystatin 04/21/2020 02:08:08 PM EDT [address] [facility] Nystatin 04/21/2020 02:08:08 PM EDT [address] [facility] Hydromorphone Hydrochloride 2 MG Oral Tablet Hydromorphone 04/21/2020 01:47:03 PM EDT active [facility] Hydromorphone Hydrochloride 2 MG Oral Tablet Hydromorphone 04/21/2020 01:47:03 PM EDT completed [facility] Hydromorphone Hydrochloride 2 MG Oral Tablet Hydromorphone 04/21/2020 01:47:03 PM EDT completed [facility] azelastine Azelastine Azelastine 04/21/2020 01:46:47 PM EDT active [facility] azelastine Azelastine Azelastine 04/21/2020 01:46:47 PM EDT active [facility] azelastine Azelastine Azelastine 04/21/2020 01:46:47 PM EDT active [facility] 120 ACTUAT Budesonide 0.16 MG/ACTUAT / f ormoterol fumarate 0.0045 MG/ACTUAT Metered Dose Inhaler Budesonide-Formoterol Budesonide-Formoterol 04/21/2020 01:46:36 PM EDT active [facility] 120 ACTUAT Budesonide 0.16 MG/ACTUAT / f ormoterol fumarate 0.0045 MG/ACTUAT Metered Dose Inhaler Budesonide-Formoterol Budesonide-Formoterol 04/21/2020 01:46:36 PM EDT active [facility] 120 ACTUAT Budesonide 0.16 MG/ACTUAT / f ormoterol fumarate 0.0045 MG/ACTUAT Metered Dose Inhaler Budesonide-Formoterol Budesonide-Formoterol 04/21/2020 01:46:36 PM EDT active [facility] Albuterol 0.417 MG/ML Inhalant Solution Albuterol Sulfate Al buterol Sulfate 04/21/2020 01:46:[address] [facility] Albuterol 0.417 MG/ML Inhalant Solution Albuterol Sulfate Al buterol Sulfate 04/21/2020 01:46:[address] [facility] Albuterol 0.417 MG/ML Inhalant Solution Albuterol Sulfate Al buterol Sulfate 04/21/2020 01:46:[address] [facility] Prednisone 10 MG Oral Tablet Prednisone 04/21/2020 01:45:48 PM EDT completed [facility] Prednisone 10 MG Oral Tablet Prednisone 04/21/2020 01:45:48 PM EDT completed [facility] Prednisone 10 MG Oral Tablet Prednisone 04/21/2020 01:45:48 PM EDT active [facility] Levofloxacin 750 MG Oral Tablet Levofloxacin 04/21/2020 01:45:29 PM EDT 750 MG completed [facility] Levofloxacin 750 MG Oral Tablet Levofloxacin 04/21/2020 01:45:29 PM EDT 750 MG active [facility] Levofloxacin 750 MG Oral Tablet Levofloxacin 04/21/2020 01:45:29 PM EDT 750 MG completed [facility] ferrous sulfate 325 MG Oral Tablet Ferrous Sulfate Ferrous S ulfate 04/21/2020 01:44:29 PM EDT 325 MG active [facility] ferrous sulfate 325 MG Oral Tablet Ferrous Sulfate Ferrous S ulfate 04/21/2020 01:44:29 PM EDT [address] [facility] ferrous sulfate 325 MG Oral Tablet Ferrous Sulfate Ferrous S ulfate 04/21/2020 01:44:29 PM EDT [address] [facility] Vicks Air Purifier/Hepa 04/14/2020 12:00:00 AM EDT active [facility] ([facility] ) Levothyroxine Sodium 0.075 MG Oral Tablet Levothyroxine 11/12/2019 12:42:06 PM EDT 75 MCG completed [facility] tramadol hydrochloride 50 MG Oral Tablet Tramadol Tramadol 09/13/2019 11:43:27 AM EDT 50 MG completed [facility] tramadol hydrochloride 50 MG Oral Tablet Tramadol Tramadol 09/13/2019 11:43:27 AM EDT 50 MG completed [facility] tramadol hydrochloride 50 MG Oral Tablet Tramadol Tramadol 09/13/2019 11:43:27 AM EDT 50 MG completed [facility] Insurance Providers Payer name Policy type / Coverage type Policy ID Covered constitution party ID Covered constitution party's relationship to alva Policy Alva Plan Information [place] [id number] SP [id number] [place] [employer] [place] Other 0 [id number] Self 0 [place] [id number] SP [id number] [place] Other 0 [id number] Self 0 [place] Other 0 [id number] Self 0 [place] Other 0 [id number] Self 0 [place] Other 0 [id number] Self 0 [place] [id number] SP [id number] [place] Other 0 [id number] Self 0 [place] Other 0 [id number] Self 0 [place] Other 0 [id number] Self 0 [place] [id number] SP [id number] 400 [place] [id number] SP [id number] 400 [place] [id number] SP [id number] [place] [id number] SP [id number] [place] [id number] SP [id number] 400 [place] [id number] SP [id number] 400 [place] I [id number] Self [id number] 400 [place] [id number] SP [id number] 400 [place] [id number] SP [id number] 400 [place] [id number] SP [id number] 400 Medicaid [facility] Other 0 [id number] Self 0 [id number] [place] [id number] SP [id number] 400 [place] CARE [facility] [id number] S [id number] [place] [id number] SP [id number] 400 Managed Care [place] P UNAVAILABLE S UNAVAILABLE Medicaid S UNAVAILABLE S UNAVAILA BLE [place] CARE [facility] [id number] 18 [id number] Medicaid Dental P [id number] S [id number] [facility] [employer] [id number] Self [id number] [facility] [employer] [id number] Self [id number] [facility] [employer] [id number] Self [id number] [place] of [place] Other 0 [id number] Self 0 [place] Other 0 [id number] Self 0 [facility] [employer] [id number] Self [id number] [place] Other 0 [id number] Self 0 [place] Other 0 [id number] Self 0 [place] [facility] [place] Medicaid [id number] Self [id number] Medicaid [facility] Other 0 [id number] Self 0 Medicaid [facility] Other 0 [id number] Self 0 [place] [facility] [place] Medicaid [id number] Self [id number] [place] of [place] Other 0 [id number] Self 0 Problems, Conditions, and Diagnoses No Information Surgeries/Procedures Procedure Description Date Indications Data Source(s) OFFICE OUTPATIENT NEW 45 MINUTES 01/19/2021 12:00:00 A M EDT [facility] ([facility], ) OFFICE OUTPATIENT VISIT 25 MINUTES 12/16/2020 12:00:00 AM [facility] OFF[facility] OUTPATIENT VISIT 25 MINUTES 10/20/2020 12:00:00 AM EDT [facility] ([facility] ) CRITICAL CARE ILL/INJURED PATIENT INIT 30-74 MIN 10/14 12:00:00 AM EDT [facility] ([facility]) CRITICAL CARE ILL/INJURED PATIENT INIT 30-74 MIN 10/13 12:00:00 AM EDT [facility] ([facility] ) Insertion Of Non-Tunneled Centrally Inserted Central Venous Cortney 10/12/2020 12:00:00 AM EDT [facility] ([facility]) Ultrasound Guidance For Vascular Access Requiring Ultrasound Eval 10/12/2020 12:00:00 AM EDT [facility] ([facility]) CRITICAL CARE ILL/INJURED PATIENT INIT 30-74 MIN 10/12 12:00:00 AM EDT [facility] ([facility] ) CRITICAL CARE ILL/INJURED PATIENT ADDL 30 MIN 10/13/19 12:00:00 AM EDT [facility] ([facility] ) Bronchoscopy, Rigid Or Flex, Diagnostic W/W/O Cell Washing 05/06/2020 12:00:00 AM EST [facility] ([facility], ) Results ID Date Data Source [id number] 10/22/2020 11:18:[address] [facility] Patient Name: KALPESH FERRARA : 1960 Sex: F Pt Unit #: [id number] Location:[facility] Provider: Visit Date/Time: 10/22/20 Primary Insurance: [...] feel a little better, Still taking Antibiotics, Behavioral Science Chair Required: No Accompanied by: Self / Same [...] low BP, ? cat bite and pneumonia [facility] Medical History Lung cancer Pleural [...] of unspecified bronchus or lung SNOMED Code(s): 522063339 Category: Medical Qualifiers: Laterality: unspecified laterality Lung [...] 1 Month Coding Level of Care Code 35964 Est Pt Extended Comp Exam Expanded Problem [...] rce(s) Supporting Document(s) ID Date Data Source [id number] 10/12/2020 09:04:00 AM EDT [facility] Name Value Range Interpretation Code Description Data Linh rce(s) Supporting Document(s) SARS-CoV-2 (COVID 19) NEGATIVE - SARS-CoV-2 (COVID19) [facility] This lab was ordered by [facility] a nd reported by [facility]. ID Date Data Source [id number] 05/12/2020 02:02:00 PM [facility] Patient Name: KALPESH FERRARA : 1960 Sex: F Pt Unit #: [id number] Location:[facility] Provider: Visit Date/Time: 05/12/20 Primary Insurance: [facility] Secondary Insurance: Self Pay Intake [...] and how to get rid of it, Behavioral Science Chair Required: No Accompanied by: Self / Same [...] Screening Screening Have you traveled outside of [facility] or [facility] in the last 14 days.: No Has [...] of unspecified bronchus or lung SNOMED Code(s): 205177151 Category: Medical Qualifiers: Laterality: unspecified laterality Lung location: unspecified part of lung Qualified Code(s): C34.90 - Malignant neoplasm of unspecified part of unspecified bronchus or lung (3) Pleural effusion: Status: Acute Code(s): J90 - Pleural effusion, not elsewhere classified SNOMED Code(s): 62733931 Category: Medical (4) Encounter for routine adult [...] rce(s) Supporting Document(s) ID Date Data Source [id number] 05/01/2020 12:00:00 PM EST [facility] Name Value Range Interpretation Code Description Data Linh rce(s) Supporting Document(s) SARS coronavirus 2 RNA [facility] This lab was ordered by [facility] and reported by [facility]. ID Date Data Source [id number] 04/21/2020 01:39:[address] [facility] Patient Name: KALPESH FERRARA : 1960 Sex: F Pt Unit #: [id number] Location:[facility] Provider: Visit Date/Time: 04/21/20 Primary Insurance: [facility] Secondary Insurance: Self Pay Intake [...] Visit Reasons: Hospital Discharge Follow-up Nurse Note: [facility] D/C follow up Pleural Effusion right lung has been in and out 3X since 03/24/2020, states she is mostly feeling better, but is very weak - has a hard time walking, but if she is not active she feels pretty good - had a mucinex pil l caught in throat for months, feels its where infection originated? Behavioral Science Chair Required: No Accompanied by: Self / Same [...] Screening Screening Have you traveled outside of [facility] or [facility] in the last 14 days.: No Has patient experienced coronavirus symptoms: No [facility] Medical History Lung cancer Pleural [...] Pleural effusion, not elsewhere classified SNOMED Code(s): 31435772 Category: Medical (3) Lung cancer: Status: Acute Code(s): C34.90 - Malignant neoplasm of unspecified part of unspecified bronchus or lung SNOMED Code(s): 509290685 Category: Medical Qualifiers: Laterality: unspecified laterality Lung [...] rce(s) Supporting Document(s) ID Date Data Source [id number] 03/18/2020 10:56:51 AM EDT [facility] Current Problems: DENTAL CARIES EXTENDIN G [...] and occlusion. Case will be sent to [facility] to finalize maxillary and mandibular dentureNv: [email or web address].[email or web address] Merchant DDS by sabine (03/18/2020 11:00 AM): Tooth Notes and Watches: Assessment & Plan Medications:EUTHYROX TABLETAllergies:No Known Allergies (updated 11/01/2018) Name Value Range Interpretation Code Description Data Linh rce(s) Supporting Document(s) ID Date Data Source [id number] 02/21/2020 03:19:24 PM EDT [facility] Current Problems: DENTAL CARIES EXTENDIN G [...] patients) Case will be sent back to [facility] to move upper anterior , also Pt is not happy with how teeth hit her lower lip. New bite reg takenNv: teeth set in wax.eDvonte Merchant DDS by sabine (02/21/2020 4:08 PM): Tooth Notes and Watches: Name Value Range Interpretation Code Description Data Linh rce(s) Supporting Document(s) Procedure Social History Code Duration Value Status Description Data Source(s ) Smoking 12/16/2020 12:00:00 AM EDT - 06/27/2006 12:00:00 AM EST Patient is a former smoker completed Patient is a former smoker [facility] ([facility], ) Smoking 04/04/2020 11:01:00 AM EDT Former smoker completed Former smoker [facility] 04/04/2020 10:01:00 AM EDT 8 yrs ago completed [address] [facility] 04/04/2020 10:01:00 AM EDT No completed [facility] 04/04/2020 10:01:00 AM EDT No completed No [facility] 04/04/2020 10:01:00 AM EDT Former smoker completed Former smoker [facility] Smoking 04/04/2020 10:01:00 AM EDT Former smoker completed Former smoker [facility] 04/04/2020 10:01:00 AM EDT 8 yrs ago completed [address] [facility] 04/04/2020 10:01:00 AM EDT No completed [facility] 04/04/2020 10:01:00 AM EDT No completed No [facility] 04/04/2020 10:01:00 AM EDT Former smoker completed Former smoker [facility] 04/04/2020 10:01:00 AM EDT 8 yrs ago completed [address] [facility] 04/04/2020 10:01:00 AM EDT No completed No [facility] 04/04/2020 10:01:00 AM EDT No completed No [facility] 04/04/2020 10:01:00 AM EDT Former smoker completed Former smoker [facility] Smoking 04/04/2020 10:01:00 AM EDT Former smoker completed Former smoker [facility] Vital Signs ID Date Data Source UNK Name Value Range Interpretation Code Description Data Source(s) Systolic blood pressure 112 mm[Hg] 112 mm[Hg] M [facility] ([facility]) Diastolic blood pressure 56 mm[Hg] 56 mm[Hg] [facility] ([facility]) Body height 59 [in_i] 59 [in_i] [facility] ([facility]) 4'11" Body weight 82.00 [lb_av] 82.00 [lb_av] [facility] ([facility]) Body mass index (BMI) [Ratio] 16.6 kg/m2 16.6 k g/m2 [facility] ([facility]) [place] body weight 100 [lb_av] 100 [lb_av] [facility] ([facility]) Body weight 37.195 kg 37.195 kg [facility] ([facility]) Body surface area Derived from formula 1.26 m2 1.26 m2 [facility] ([facility]) Oxygen saturation in Arterial blood by Pulse oximetry 96 % 96 % [facility] ([facility]) Body temperature 95.9 [degF] 95.9 [degF] [facility] ([facility]) Body weight 83.00 [lb_av] 83.00 [lb_av] [facility] ([facility]) Body mass index (BMI) [Ratio] 16.8 kg/m2 16.8 k g/m2 [facility] ([facility]) Body weight 37.649 kg 37.649 kg [facility] ([facility]) Body surface area Derived from formula 1.27 m2 1.27 m2 [facility] ([facility]) Systolic blood pressure 100 mm[Hg] 100 mm[Hg] [facility] ([facility]) Body height 59 [in_i] 59 [in_i] [facility] ([facility]) 4'11" [place] body weight 100 [lb_av] 100 [lb_av] [facility] ([facility]) Body surface area Derived from formula 1.27 m2 1.27 m2 [facility] ([facility]) Diastolic blood pressure 70 mm[Hg] 70 mm[Hg] [facility] ([facility]) Heart rate 107 /min 107 /min [facility] ([facility]) Oxygen saturation in Arterial blood by Pulse oximetry 96 % 96 % [facility] ([facility]) Body temperature 95.9 [degF] 95.9 [degF] [facility] ([facility]) Body height 59 [in_i] 59 [in_i] [facility] ([facility]) 4'11" Body weight 83.00 [lb_av] 83.00 [lb_av] [facility] ([facility]) Body mass index (BMI) [Ratio] 16.8 kg/m2 16.8 k g/m2 [facility] ([facility]) [place] body weight 100 [lb_av] 100 [lb_av] MED[facility] T ([facility]) Body weight 37.649 kg 37.649 kg [facility] ([facility]) Heart rate 123 /min 123 /min [facility] ([facility]) Oxygen saturation in Arterial blood by Pulse oximetry 92 % 92 % [facility] ([facility]) Body temperature 99.2 [degF] 99.2 [degF] [facility] ([facility]) Body height 59 [in_i] 59 [in_i] [facility] ([facility]) 4'11" Body weight 93.00 [lb_av] 93.00 [lb_av] [facility] ([facility]) Body mass index (BMI) [Ratio] 18.8 kg/m2 18.8 k g/m2 [facility] ([facility]) [place] body weight 100 [lb_av] 100 [lb_av] MEDEN T ([facility]) Body weight 42.185 kg 42.185 kg [facility] ([facility]) Body surface area Derived from formula 1.33 m2 1.33 m2 [facility] ([facility]) Systolic blood pressure 120 mm[Hg] 120 mm[Hg] M EDENT ([facility]) Diastolic blood pressure 80 mm[Hg] 80 mm[Hg] [facility] ([facility]) [place] body weight 100 [lb_av] 100 [lb_av] MEDEN T ([facility]) Body weight 39.917 kg 39.917 kg [facility] ([facility]) Body surface area Derived from formula 1.30 m2 1.30 m2 [facility] ([facility]) Body mass index (BMI) [Ratio] 17.8 kg/m2 17.8 k g/m2 [facility] ([facility]) Body weight 88.00 [lb_av] 88.00 [lb_av] [facility] ([facility]) Systolic blood pressure 110 mm[Hg] 110 mm[Hg] M [facility] ([facility]) Diastolic blood pressure 80 mm[Hg] 80 mm[Hg] [facility] ([facility]) Heart rate 105 /min 105 /min [facility] ([facility]) Oxygen saturation in Arterial blood by Pulse oximetry 98 % 98 % [facility] ([facility]) Body height 59 [in_i] 59 [in_i] [facility] ([facility]) 4'11" Systolic blood pressure 110 mm[Hg] 110 mm[Hg] [facility] ([facility]) Diastolic blood pressure 70 mm[Hg] 70 mm[Hg] [facility] ([facility]) Heart rate 99 /min 99 /min [facility] ([facility]) Oxygen saturation in Arterial blood by Pulse oximetry 100 % 100 % [facility] ([facility]) Body temperature 97.4 [degF] 97.4 [degF] [facility] ([facility]) Body height 59 [in_i] 59 [in_i] [facility] ([facility]) 4'11" Body weight 85.00 [lb_av] 85.00 [lb_av] [facility] ([facility]) Body mass index (BMI) [Ratio] 17.2 kg/m2 17.2 k g/m2 [facility] ([facility]) [place] body weight 100 [lb_av] 100 [lb_av] MED[facility] T ([facility]) Body weight 38.556 kg 38.556 kg [facility] ([facility])
[2021-04-09] MEDS: NOREPINEPHRINE BITARTRATE 8 MG in D5W 492 ML IV SCH ×2 (04:59→13:11)
--- NOTE | 2021-04-09 05:03 | ROOPDOC ---
[facility] Report Of Operation Report of Operation DATE OF PROCEDURE: 04/09/21 PROCEDURE PERFORMED: Left femoral central venous catheter insertion. PREPROCEDURE DIAGNOSES: Septic shock secondary from postobstructive pneumonia. POSTPROCEDURE DIAGNOSES: Septic shock secondary from postobstructive pneumonia. SURGEON: Dr. Rahul MD ANESTHESIA: Local lidocaine 1% without epinephrine. Consent obtained: Written consent from patient ESTIMATED BLOOD LOSS: Approximately 1 mL. COMPLICATIONS: None. DESCRIPTION OF PROCEDURE: A time out was performed. My hands were washed immediately prior to the procedure. I wore a surgical cap, mask with protective eyewear, sterile gown and sterile gloves throughout the procedure. The left inguinal region was prepped using chlorhexidine scrub and draped in sterile fashion using a full drape and sterile probe cover and sterile gel employed. The femoral pulse and vein was identified using ultrasound. Anesthesia was achieved using 1% lidocaine. Palpating the femoral pulse and visualizing the femoral vein using ultrasound throughout the procedure, the introducer needle was inserted medial to the femoral artery, inferior to the inguinal crease and into the femoral vein. Venous blood was withdrawn. The syringe was removed and a guidewire was advanced into the introducer needle. A small incision was made at the skin surface with a scalpel and the introducer needle was exchanged for a dilator over the guidewire. After appropriate dilation was obtained, the dilator was exchanged over the wire for a triple lumen central venous catheter. The wire was removed and the catheter was sutured in place at 20 cm. A sterile sorbaview shield was placed over the catheter at the insertion site. The patient tolerated the procedure without any hemodynamic compromise. At time of procedure completion, all ports aspirated and flushed properly. Estimated blood loss is 1 cc. AYANNA PETERS MD Apr 09, 2021 05:03
[2021-04-09] MEDS ORDERED: HOME MED LIST COMPLETE! XX SCH (05:10)
[2021-04-09] MEDS ORDERED: IBUPROFEN 200MG TAB PO STA (05:28)
[2021-04-09] MEDS ORDERED: VANCOMYCIN HCL 1,000 MG, VIAL MATE ADAPTER 1 EACH in NS 250 ML IV SCH (05:30)
[2021-04-09] MEDS ORDERED: LEVALBUTEROL 1.25 MG/0.5 ML CONCENTRATE NEB INH PRN (05:30)
[2021-04-09] MEDS: HEPARIN SOD (PORCINE) 5000UNITS/ML 1ML VIAL/SYRINGE SC SCH ×3 (06:00→21:50)
[2021-04-09] MEDS ORDERED: LR 1,000 ML IV SCH (06:15)
--- NOTE | 2021-04-09 06:16 | IPNPDOC ---
Text Note Date of Service The patient was seen on 04/09/21. NOTE ATTENDING ADDENDUM TIME OF SERVICE 550AM Ms. Elder is a 60 yr old F w a hx of lung CA in remission who presented w dyspnea, and productive cough; she will be admitted for septic shock 2/2 post obstructive PNA & acute COPD. - we will pace the COPD, sepsis and PNA order sets rest per 's H&P VS,Fishbone, I+O VS, Fishbone, I+O Laboratory Tests 04/09/21 01:07 Vital Signs Date Time Temp Pulse Resp B/P (MAP) Pulse Ox O2 Delivery O2 Flow Rate FiO2 04/09/21 05:29 97/60 04/09/21 05:15 118 20 96 Nasal Cannula 2.0 04/09/21 03:21 100.5 I&O- Last 24 Hours up to 6 AM 04/09/21 06:00 Intake Total 2000 ml Balance 2000 ml EBONI CHRISTIANSEN MD Apr 09, 2021 06:15
[2021-04-09] MEDS ORDERED: ALBUTEROL 90 MCG/ACT 8GM HFA INHALER INH PRN (07:15)
[2021-04-09] MEDS ORDERED: MOM 30ML SUSPENSION UDC PO PRN (07:15)
[2021-04-09] MEDS ORDERED: MAALOX 30 ML SUSP *UDC PO PRN (07:15)
[2021-04-09] MEDS ORDERED: SYMBICORT 160/4.5MCG INHALER 6GM INH PRN (07:15)
--- NOTE | 2021-04-09 07:46 | ECGEPIP ---
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
[2021-04-09 08:24] LABS: BASO # 0.1 10^3/uL (0.0-0.2); BASO % 0.4 % (0.0-1.0); EOS % 0.1 % (0.0-3.0); HEMATOCRIT 43.8 % (36.0-47.0); HEMOGLOBIN 13.9 g/dl (12.0-15.5); LYMPH # 1.8 10^3/uL (1.5-5.0); LYMPH % 5.6 % (24.0-44.0); MEAN CORPUSCULAR HEMOGLOBIN 30.5 pg (27.0-33.0); MEAN CORPUSCULAR HGB CONC 31.7 g/dl (32.0-36.5); MEAN CORPUSCULAR VOLUME 96.3 fl (80.0-96.0); MONO # 1.6 10^3/uL (0.0-0.8); NEUTROPHILS # 28.2 10^3/uL (1.5-8.5); NEUTROPHILS % 87.5 % (36.0-66.0); PLATELET COUNT, AUTOMATED 258 10^3/uL (150-450); RED BLOOD COUNT 4.55 10^6/uL (4.00-5.40)
[2021-04-09 08:33] LABS: WHITE BLOOD COUNT 32.3 10^3/uL (4.0-10.0)
[2021-04-09 08:34] LABS: BLOOD UREA NITROGEN 20 MG/DL (7-18); CARBON DIOXIDE LEVEL 22 MEQ/L (21-32); CHLORIDE LEVEL 109 MEQ/L (98-107); CREATININE FOR GFR 0.87 MG/DL (0.55-1.30); GLOMERULAR FILTRATION RATE > 60.0 (>51); GLUCOSE, FASTING 124 MG/DL (70-100); POTASSIUM SERUM 3.7 MEQ/L (3.5-5.1); SODIUM LEVEL 139 MEQ/L (136-145)
[2021-04-09] MEDS: IPRATROPIUM 0.5MG/ALBUTEROL 2.5MG INH SOL UD 3ML (DUONEB) NEB SCH ×4 (08:40→20:23)
--- NOTE | 2021-04-09 09:11 | HPEPDOC ---
[facility] Medical History & Physical Date of Admission Apr 09, 2021 Date of Service: Apr 09, [address] Corazon Meade, oncology; Dr. Zepeda, pulmonology Attending Physician: EBONI CHRISTIANSEN MD History and Physical CHIEF COMPLAINT: Worsening shortness of breath and chills HISTORY OF PRESENT ILLNESS: is a 60yo female with notable PMHx of locally advanced right-sided non-small cell lung cancer s/p chemo/rad/1 year of immunotherapy, radiation serositis of the lung, hypothyroidism, recurrent tonsillitis, non-O2 dependent COPD, and history of empyema and recurrent pneumonia who presented to the [facility] ED via EMS in the dinkey brakeman hours of 04/09/2021 with a chief complaint of worsening shortness of breath. On 04/01, she initially noticed some "gurgling" while breathing that was likely increased mucus presence in her lungs with associated rhonchi. This was pretty consistent for the past week but acutely on the evening of Tuesday (04/07), patient's shortness of breath increased and she began to feel chills. The chills and dyspnea continued through yesterday morning (04/08). Patient says she felt "generally unwell" and requested her call EMS. When patient arrived in the ED, she was febrile with a maximum temperature of 102.3, tachycardic (HR running between [id number]) and hypotensive. When she did come in via EMS, she was wearing 3 L of supplemental oxygen and saturating in the upper 90s. Apparently per report, the patient was quite hypoxic on the scene and thus EMS added the supplemental oxygen. Initial lab work was remarkable for leukocytosis with absolute neutrophilia (WBC 24), elevated lactic acid of 3.5. Initial imaging showed increased volume loss in the right lung with increased infiltrate and atelectasis and obstruction of branches of the right bronchus that was significantly increased from prior imaging in September 2020. During work-up in the ED, patient did not respond to to 1 L normal saline boluses. Her blood pressure went down all the way to 64/37 at which point the ED provider contacted the on-call engineering technical specialist (Dr. Kay) who placed a TLC in the left femoral vein and norepinephrine was subsequently started. Patient received 975 oral Tylenol which brought the fever down to 100.5. She received initial one-time doses of Zosyn and IV vancomycin and a MRSA PCR was obtained. 2 blood cultures were also ordered. Of note, patient had a similar presentation in September 2020 when she had acute dyspnea that was secondary to postobstructive pneumonia as well as septic shock requiring ICU admission with TLC and vasopressor support. PAST MEDICAL HISTORY: Adenocarcinoma of the right upper lung first diagnosed in 2017 status post chemo and radiation as well as status post 1 year of immunotherapy (durvalumab) -Follows usually with Dr. Meade of oncology at [facility] -Right lung empyema status post drainage Radiation serositis of the lung, diagnosed in August 2019 Recurrent tonsillitis Not O2 dependent COPD (follows with Dr. Zepeda as outpatient of pulmonology Hypothyroidism PAST SURGICAL HISTORY: Thoracentesis for chronic right pleural effusion (03/30/2020) Pericardiocentesis for chronic pericardial effusion Thoracentesis for empyema Right shoulder surgery SOCIAL HISTORY: Patient is and lives with her in [facility]. Patient is a former smoker, quitting 14 years ago after a [id number] history (1 pack/day for 20 years) Patient consumes alcohol occasionally She denies any current or former use of illicit drugs. FAMILY HISTORY: Noncontributory ALLERGIES: Please see below. REVIEW OF SYSTEMS: CONSTITUTIONAL: Reports chills that began on the evening of 04/07. Reports chronic malaise and weakness. Denies any night sweats patient denies feeling fe verish despite her fever in the ED HEENT: Denies vision or hearing changes CARDIOVASCULAR: Denies chest pain or palpitations RESPIRATORY: Reports worsening dyspnea as described in HPI. Reports interm ittent cough productive of yellow sputum. GASTROINTESTINAL: Denies any abdominal pain/nausea/emesis/constipation/blood in stool GENITOURINARY: Denies dysuria or hematuria MUSCULOSKELETAL: Reports general baseline fatigue and weakness HEMATOLOGIC: Denies easy bleeding or bruising LYMPHATIC: Denies any new lumps or bumps HOME MEDICATIONS: Please see below. PHYSICAL EXAMINATION: VITAL SIGNS: Temperature 100.5, pulse 103, respiratory rate 20, blood pressure 80/53 (MAP 62), pulse oximetry 98% on 3 L. GENERAL APPEARANCE: Ill-appearing cachectic female lying in ED bed. She appears to be in some mild discomfort related to the TLC that was just placed. Wearing nasal cannula supplemental oxygen. ANO x3. HEENT: Normocephalic, atraumatic. Noninjected, anicteric sclera. No significant conjunctival pallor appreciated. Wearing nasal cannula submental oxygen. Oral cavity: Edentulous. MMM. No pharyngeal erythema or exudate appreciated. Neck: No lymphadenopathy. Trachea midline. CARDIOVASCULAR: Tachycardic rate, regular rhythm. Normal S1, S2. There is a 2/6 systolic murmur present. 2+ radial and posterior tibial pulses bilaterally. LUNGS: Wearing 3 L of supplemental oxygen via nasal cannula. Decreased tidal volume. Decreased breath sounds over the right lung posteriorly. There is diffuse rhonchi throughout with moderate crackles in the left mid and lower lung bases. Symmetric chest expansion. No conversational dyspnea. No significant accessory muscle use appreciated. ABDOMEN: Scaphoid abdomen. Normoactive bowel sounds throughout. Soft, nontender nondistended. There is no guarding or rigidity nor organomegaly appreciated. EXTREMITIES: All 4 extremities are thin. Bilateral lower extremities free of pitting edema. NEUROLOGICAL: No gross focal neurologic deficits appreciated. Nondysarthric speech. Alert and oriented x3. PSYCHIATRIC: Somewhat exasperated mood at times during exam. Affect appears appropriate. LABORATORY DATA: Please see below. IMAGING: Portable chest x-ray, 04/09/2021 FINDINGS: Lungs: Improved aeration of the right lung which may reflect decreased right pleural effusion or decreased atelectasis. Residual right hilar mass with atelectasis or consolidation of the right upper lobe persists. Residual infiltrate and atelectasis remains in the right base. Pleural spaces: Question of right pleural effusion. Decreased left pleural effusion and decreased left base infiltrate or atelectasis. Heart/Mediastinum: Unremarkable. No gross cardiomegaly. Bones/joints: Unremarkable. IMPRESSION: 1. Resolution of left pleural effusion and left base infiltrate and atelectasis since 10/13/2020. 2. Improved aeration of the right lung which may reflect decreased atelectasis and/or right pleural effusion. Residual volume loss persists with question of right pleural effusion and right hilar mass with right upper lobe atelectasis. Some residual infiltrate and atelectasis persists within the aerated lung. CT abdomen pelvis without contrast, 04/09/2021 FINDINGS: Liver: Normal. No mass. Gallbladder and bile ducts: Question of layering sludge in the gallbladder. Pancreas: Normal. No ductal dilation. Spleen: Normal. No splenomegaly. Adrenal glands: Normal. No mass. Kidneys and ureters: Normal. No hydronephrosis. Stomach and bowel: Mild stool and gas throughout much of the colon. Minimal sigmoid diverticulosis without diverticulitis. Appendix: A normal appendix is seen. Intraperitoneal space: Unremarkable. No free air. No significant fluid collection. Vasculature: There is moderate atherosclerotic calcification of the abdominal aorta with extension into the iliac arteries. There is question of some stenosis of the distal aorta and proximal iliac arteries. Lymph nodes: Unremarkable. No enlarged lymph nodes. Urinary bladder: Unremarkable as visualized. Reproductive: Unremarkable as visualized. Bones/joints: Unremarkable. No acute fracture. Soft tissues: Unremarkable. IMPRESSION: 1. Question of minimal layering sludge in the gallbladder. 2. Minimal sigmoid diverticulosis without diverticulitis. 3. Atherosclerotic calcification of the aorta and proximal iliac arteries with question of some stenosis, particularly involving the distal aorta and right common iliac artery. 4. Otherwise negative CT abdomen/pelvis. CT chest without contrast, 04/09/2021 FINDINGS: Lungs: There is increased volume loss in the right hemithorax since the prior study with increased right base infiltrate and atelectasis of the remaining aerated lung. Right upper lobe atelectasis in the medial right apex. There is occlusion or severe narrowing or pruning of multiple right bronchi from the right mainstem bronchus and may reflect a central hilar mass. There is infiltrate and atelectasis or consolidation extending into the remaining aerated right lung. Pleural spaces: Small loculated fluid collection anteriorly which is decreased since a prior study. There is trace loculated fluid in the posterior right apex which is similar. There is resolution of left pleural effusion since the prior study. Heart: Unremarkable. No cardiomegaly. No pericardial effusion. Pulmonary arteries: The main pulmonary artery measures 19 mm. Aorta: The ascending thoracic aorta measures 25 mm. Lymph nodes: Unremarkable. No enlarged lymph nodes. Bones/joints: Unremarkable. No acute fracture. Soft tissues: Unremarkable. IMPRESSION: 1. Resolution of left pleural effusion and decreased loculated fluid in the anterior right hemithorax since 07/11/2020. Some residual fluid is noted anteriorly. Trace loculated fluid in the posterior left apex is similar. 2. Increased volume loss in the right hemithorax. There is severe pruning and obstruction of branches of the right bronchus which is increased since the prior study. There is persistent complete atelectasis of the right upper lobe and increased infiltrates and atelectasis in the remaining aerated right lung which has decreased volume. MICROBIOLOGY: Please see below. ASSESSMENT & PLAN: This is a 60-year-old female w/ notable h/o locally advanced right-sided non- small cell lung cancer status post chemo/radiation/1 year of immunotherapy, radiation serositis to the lung, recurrent tonsillitis, hypothyroidism, COPD, and history of empyema and recurrent pneumonia who presented to the ED on 04/09 via EMS with chief complaint of progressive shortness of breath with associated chills. She is now being admitted to the ICU for septic shock secondary to postobstructive pneumonia. #Septic shock -likely 2/2 postobstructive pneumonia i/s/o Rt-sided NSCLC and COPD -Febrile, hypotensive despite 2 L of bolus NS, tachycardia, increased atelectasis and infiltrates of the right lung from prior -Leukocytosis with absolute neutrophilia and elevated lactic; respiratory viral panel negative -Administered single doses of Zosyn and IV vancomycin in the ED -TLC placed in the left femoral vein with norepinephrine running -Empiric vancomycin and Zosyn continued with MRSA screen ordered; LR ordered at 120/h Follow-up blood cultures -Admitted to the ICU -Of note, patient had very similar presentation of septic shock likely secondary to pneumonia in September 2020 #Acute hypoxic respiratory failure -likely secondary to postobstructive p neumonia with history of right lung cancer and COPD -Patient reports rhonchorous breath sounds with intermittent productive cough since 04/01 with acute worsening dyspnea on the evening of 04/07 -Follows with Dr. Zepeda as outpatient for pulmonology -Patient was hypoxic in the field when attended to by EMS and came into the ED on 3 L; she is saturating now in the upper 90s on the 3 L and is in no acute respiratory distress -Home inhalers continued (Symbicort and albuterol) -Xopenex nebulizers ordered as needed in the setting of tachycardia -Oral daily prednisone ordered -Incentive spirometry #Adenocarcinoma of the right lung -Currently follows with Dr. Meade of the cancer center and was seen most recently on 04/01 -She is status post chemo and radiation as well as 1 year of durvalumab #Hypothyroidism -Continue with home levothyroxine #DVT prophylaxis: Heparin subcu CODE STATUS: Full code Disposition: Admitted under inpatient status to ICU for septic shock. Plan is to discharge back home when medically improved. Laboratory Data Labs 24H Laboratory Tests 2 04/09/21 01:07: Immature Granulocyte % (Auto) 0.8, Neutrophils (%) (Auto) 87.1H, Lymphocytes (%) (Auto) 6.2L, Monocytes (%) (Auto) 5.5, Eosinophils (%) (Auto) 0.1, Basophils (%) (Auto) 0.3, Neutrophils # (Auto) 20.9H, Lymphocytes # (Auto) 1.5, Monocytes # (Auto) 1.3H, Eosinophils # (Auto) 0.0, Basophils # (Auto) 0.1, Nucleated Red Blood Cells % (auto) 0.0, Anion Gap 10, Glomerular Filtration Rate 59.3, Calcium Level 9.1, Total Bilirubin 0.6, Direct Bilirubin 0.1, Aspartate Amino Transf (AST/SGOT) 26, Alanine Aminotransferase (ALT/SGPT) 32, Alkaline Phosphatase 116, Total Creatine Kinase 42, Creatine Kinase MB < 1.0, Creatine Kinase MB Relative Index 2.38, Troponin I < 0.02, Total Protein 6.9, Albumin 3.3, Albumin/Globulin Ratio 0.9L 04/09/21 01:14: Lactic Acid Level 3.5*H 04/09/21 08:02: Immature Granulocyte % (Auto) 1.4, Neutrophils (%) (Auto) 87.5H, Lymphocytes (%) (Auto) 5.6L, Monocytes (%) (Auto) 5.0, Eosinophils (%) (Auto) 0.1, Basophils (%) (Auto) 0.4, Neutrophils # (Auto) 28.2H, Lymphocytes # (Auto) 1.8, Monocytes # (Auto) 1.6H, Eosinophils # (Auto) 0.0, Basophils # (Auto) 0.1, Nucleated Red Bl ood Cells % (auto) 0.0, Anion Gap 8, Glomerular Filtration Rate > 60.0, Calcium Level 8.0L CBC/BMP Laboratory Tests 04/09/21 01:07 04/09/21 08:02 Microbiology Microbiology 04/09/21 Respiratory Virus Panel (PCR) ([facility]) - Final, Complete 04/09/21 Blood Culture, Received Pending 04/09/21 Blood Culture, Received Pending Home Medications Scheduled Amoxicillin/Potassium Clav (Amox-Clav 875-125 mg Tablet) 1 Each Tablet, 875 MG PO BID Lactobacillus 3/Fos/Pantethine (Probiotic & Acidophilus Cap) 1 Each Capsule, 1 CAP PO DAILY Levothyroxine Sodium (Levothyroxine Sodium) 50 Mcg Tablet, 50 MCG PO DAILY@0600 Prednisone (Prednisone) 10 Mg Tablet, 1 TAB PO ASDIRECTED 40mg daily for 3d, 30mg daily for 3d, 20mg daily for 3d, 10mg daily for 3d. Scheduled PRN Albuterol Sulfate (Proair Hfa) 8.5 Gm Hfa.aer.ad, 2 PUFF INH Q4H PRN for SOB/WHEEZING Budesonide/Formoterol (Symbicort 160-4.5 Mcg Inhaler) 6 Gm Hfa.aer.ad, 2 PUFF INH BID PRN for SOB/WHEEZING Codeine Phosphate/Guaifenesin (Guaiatussin AC Liquid) 5 Ml Liquid, 5 ML PO QHS PRN for COUGH Hydromorphone Hcl (Hydromorphone HCl) 1 Mg/1 Ml Liquid, 1 MG PO Q6H PRN for PAIN Allergies Coded Allergies: No Known Allergies (Unverified , 05/05/20) Attending Note Attending Note ATTENDING ADDENDUM TIME OF SERVICE 550AM Ms. Elder is a 60 yr old F w a hx of lung CA in remission who presented w dyspnea, and productive cough; she will be admitted for septic shock 2/2 post obstructive PNA & acute COPD. - we will pace the COPD, sepsis and PNA order sets rest per 's H&P CLINT MACKEY D.O. Apr 09, 2021 09:11 EBONI CHRISTIANSEN MD Apr 12, 2021 03:16
[2021-04-09] MEDS ORDERED: IBUPROFEN 400MG TAB PO PRN (13:20)
--- NOTE | 2021-04-09 13:30 | IPNPDOC ---
Text Note Date of Service The patient was seen on 04/09/21. NOTE SUBJECTIE: -Now comfortably on room air -No chest pain, palpitations, dyspnea -Has a headache, asking for ibuprofen, reports that tylenol does not do anything for her OBJECTIVE: VITAL SIGNS: see below GENERAL APPEARANCE: Chronically ill appearing, cachectic, in NAD HEENT: Normocephalic, atraumatic. Noninjected, anicteric sclera. No significant conjunctival pallor appreciated. Oral cavity: Edentulous. MMM. Neck: No lymphadenopathy. Trachea midline. CARDIOVASCULAR: RRR. Normal S1, S2. There is a 2/6 systolic murmur present. 2+ radial and posterior tibial pulses bilaterally. LUNGS: Breathing comfortably on room air, diminished/silent breath sounds over the right lung posteriorly. Does have some rhonchi throughout with faint crackles in the left mid and lower lung bases. Otherwise with symmetric chest expansion. ABDOMEN: Scaphoid abdomen. Normoactive bowel sounds throughout. Soft, nontender nondistended. There is no guarding or rigidity nor organomegaly appreciated. Has L fem TLC in place. EXTREMITIES: All 4 extremities are thin. Bilateral lower extremities without pitting edema. NEUROLOGICAL: No gross focal neurologic deficits appreciated. Nondysarthric speech. Alert and oriented x3. PSYCHIATRIC: Somewhat exasperated mood at times during exam. Affect appears appropriate. LABORATORY DATA: WBC 32.3 Hgb 13.9 platelets 258 na 139 K 3.7 Cr 0.87 lactic acid 3.6 IMAGING: Portable chest x-ray, 04/09/2021 FINDINGS: Lungs: Improved aeration of the right lung which may reflect decreased right pleural effusion or decreased atelectasis. Residual right hilar mass with atelectasis or consolidation of the right upper lobe persists. Residual infiltrate and atelectasis remains in the right base. Pleural spaces: Question of right pleural effusion. Decreased left pleural effusion and decreased left base infiltrate or atelectasis. Heart/Mediastinum: Unremarkable. No gross cardiomegaly. Bones/joints: Unremarkable. IMPRESSION: 1. Resolution of left pleural effusion and left base infiltrate and atelectasis since 10/13/2020. 2. Improved aeration of the right lung which may reflect decreased atelectasis and/or right pleural effusion. Residual volume loss persists with question of right pleural effusion and right hilar mass with right upper lobe atelectasis. Some residual infiltrate and atelectasis persists within the aerated lung. CT abdomen pelvis without contrast, 04/09/2021 FINDINGS: Liver: Normal. No mass. Gallbladder and bile ducts: Question of layering sludge in the gallbladder. Pancreas: Normal. No ductal dilation. Spleen: Normal. No splenomegaly. Adrenal glands: Normal. No mass. Kidneys and ureters: Normal. No hydronephrosis. Stomach and bowel: Mild stool and gas throughout much of the colon. Minimal sigmoid diverticulosis without diverticulitis. Appendix: A normal appendix is seen. Intraperitoneal space: Unremarkable. No free air. No significant fluid collection. Vasculature: There is moderate atherosclerotic calcification of the abdominal aorta with extension into the iliac arteries. There is question of some stenosis of the distal aorta and proximal iliac arteries. Lymph nodes: Unremarkable. No enlarged lymph nodes. Urinary bladder: Unremarkable as visualized. Reproductive: Unremarkable as visualized. Bones/joints: Unremarkable. No acute fracture. Soft tissues: Unremarkable. IMPRESSION: 1. Question of minimal layering sludge in the gallbladder. 2. Minimal sigmoid diverticulosis without diverticulitis. 3. Atherosclerotic calcification of the aorta and proximal iliac arteries with question of some stenosis, particularly involving the distal aorta and right common iliac artery. 4. Otherwise negative CT abdomen/pelvis. CT chest without contrast, 04/09/2021 FINDINGS: Lungs: There is increased volume loss in the right hemithorax since the prior study with increased right base infiltrate and atelectasis of the remaining aerated lung. Right upper lobe atelectasis in the medial right apex. There is occlusion or severe narrowing or pruning of multiple right bronchi from the right mainstem bronchus and may reflect a central hilar mass. There is infiltrate and atelectasis or consolidation extending into the remaining aerated right lung. Pleural spaces: Small loculated fluid collection anteriorly which is decreased since a prior study. There is trace loculated fluid in the posterior right apex which is similar. There is resolution of left pleural effusion since the prior study. Heart: Unremarkable. No cardiomegaly. No pericardial effusion. Pulmonary arteries: The main pulmonary artery measures 19 mm. Aorta: The ascending thoracic aorta measures 25 mm. Lymph nodes: Unremarkable. No enlarged lymph nodes. Bones/joints: Unremarkable. No acute fracture. Soft tissues: Unremarkable. IMPRESSION: 1. Resolution of left pleural effusion and decreased loculated fluid in the anterior right hemithorax since 07/11/2020. Some residual fluid is noted anteriorly. Trace loculated fluid in the posterior left apex is similar. 2. Increased volume loss in the right hemithorax. There is severe pruning and obstruction of branches of the right bronchus which is increased since the prior study. There is persistent complete atelectasis of the right upper lobe and increased infiltrates and atelectasis in the remaining aerated right lung which has decreased volume. MICROBIOLOGY: Please see below. 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 #Septic shock - 2/2 PNA likely aspiration vs. post obstructive pneumonia i/s/o Rt-sided NSCLC and COPD -Febrile, hypotensive despite 2 L of bolus NS, tachycardia, increased atelectasis and infiltrates of the right lung from prior and with leukocytosis -Continue empiric vancomycin/piptazo -f/u MRSA PCR -Resp panel was negative -urine legionella and strep antigens -TLC placed in the left femoral vein with norepinephrine running -continue fluids NS at 125cc/hr after a 1L bolus Follow-up blood cultures -Sounds like she may have been having some aspiration, has difficulty clearing thick phlegm sometimes and had food stuck in her through. Is edentulous and eats regular consistency food --> will get swallow evaluation with likely barium swallow needed #Acute hypoxemia -likely secondary to postobstructive pneumonia with history of right lung cancer and COPD and c/f mucus vs/ food plugging as well given fast resolution of hypoxemia -Sounds like she may have been having some aspiration, has difficulty clearing thick phlegm sometimes and had food stuck in her through. Is edentulous and eats regular consistency food --> will get swallow evaluation with likely barium swallow needed -Follows with Dr. Zepeda as outpatient for pulmonology -Home inhalers continued (Symbicort and albuterol) -Xopenex nebulizers ordered as needed in the setting of tachycardia -Oral daily prednisone ordered at 40mg PO -Incentive spirometry #Adenocarcinoma of the right lung -Currently follows with Dr. Meade of the cancer center and was seen most recently on 04/01 -She is status post chemo and radiation as well as 1 year of durvalumab #Hypothyroidism -Continue with home levothyroxine #DVT prophylaxis: Heparin subcu CODE STATUS: Full code Disposition: Admitted under inpatient status to ICU for septic shock. Plan is to discharge back home when medically improved. VS,Fishbone, I+O VS, Fishbone, I+O Laboratory Tests 04/09/21 01:07 04/09/21 08:02 Vital Signs Date Time Temp Pulse Resp B/P (MAP) Pulse Ox O2 Delivery O2 Flow Rate FiO2 04/09/21 10:21 112 20 116/75 (89) 97 Room Air 04/09/21 08:12 98.7 04/09/21 07:00 3.0 I&O- Last 24 Hours up to 6 AM 04/09/21 06:00 Intake Total 2000 ml Balance 2000 ml EDSON WAGNER MD Apr 09, 2021 10:52
[2021-04-09] MEDS ORDERED: LEVO50TA5 PO (13:40)
[2021-04-09] MEDS: PIPERACILLIN/TAZOBACTAM SOD 3.375 GM in D5W MINI-BAG PLUS 50 ML IV SCH ×3 (13:48→22:47)
[2021-04-09] MEDS: LEVOTHYROXINE 50MCG TABLET (0.05MG) PO SCH (13:49)
[2021-04-09] MEDS: predniSONE 20 MG TAB PO SCH (13:49)
[2021-04-09] MEDS: NOREPINEPHRINE BITARTRATE 16 MG in D5W 484 ML IV SCH (14:04)
[2021-04-09] MEDS ORDERED: VARIBAR PUDDING 40% w/v 230ML TUBE As Ordered ONE (14:08)
[2021-04-09] MEDS ORDERED: E-Z-PAQUE 96% w/w SUSP 176GM BTL As Ordered ONE (14:09)
[2021-04-09] MEDS ORDERED: VARIBAR NECTAR 40% w/v 240ML SUSP BTL As Ordered ONE (14:09)
[2021-04-09] MEDS ORDERED: BARIUM SULFATE 700 MG TABLET (E-Z-DISK) As Ordered ONE (14:09)
[2021-04-09] MEDS ORDERED: HEPARIN SOD (PORCINE) 5000UNITS/ML 1ML VIAL/SYRINGE As Ordered ONE (14:23)
[2021-04-09] MEDS: NS 1,000 ML IV SCH ×2 (14:25→21:50)
[2021-04-09] MEDS ORDERED: SODIUM CHLORIDE 0.9% INJ 10 ML SYR IV PRN (15:25)
[2021-04-09] MEDS: SODIUM CHLORIDE 0.9% INJ 10 ML SYR IV SCH (21:50)
[2021-04-10] VITALS (27 sets, daily range): BP systolic 92–130; BP diastolic 51–86
[2021-04-10] MEDS ORDERED: VANCOMYCIN HCL 750 MG, VIAL MATE ADAPTER 1 EACH in NS 250 ML IV SCH ×3
[2021-04-10] MEDS: IPRATROPIUM 0.5MG/ALBUTEROL 2.5MG INH SOL UD 3ML (DUONEB) NEB SCH ×4 (01:34→19:12)
[2021-04-10] MEDS: PIPERACILLIN/TAZOBACTAM SOD 3.375 GM in D5W MINI-BAG PLUS 50 ML IV SCH ×4 (04:12→22:07)
[2021-04-10 04:32] LABS: BASO # 0.1 10^3/uL (0.0-0.2); BASO % 0.2 % (0.0-1.0); HEMATOCRIT 36.1 % (36.0-47.0); LYMPH # 0.6 10^3/uL (1.5-5.0); LYMPH % 2.2 % (24.0-44.0); MEAN CORPUSCULAR HEMOGLOBIN 30.3 pg (27.0-33.0); MEAN CORPUSCULAR HGB CONC 31.9 g/dl (32.0-36.5); MONO # 1.1 10^3/uL (0.0-0.8); MONO % 3.7 % (2.0-8.0); NEUTROPHILS # 27.4 10^3/uL (1.5-8.5); NEUTROPHILS % 92.8 % (36.0-66.0); PLATELET COUNT, AUTOMATED 176 10^3/uL (150-450); WHITE BLOOD COUNT 29.5 10^3/uL (4.0-10.0)
[2021-04-10 04:33] LABS: HEMOGLOBIN 11.5 g/dl (12.0-15.5)
[2021-04-10 04:51] LABS: BLOOD UREA NITROGEN 11 MG/DL (7-18); CALCIUM LEVEL 8.1 MG/DL (8.5-10.1); CARBON DIOXIDE LEVEL 25 MEQ/L (21-32); CHLORIDE LEVEL 113 MEQ/L (98-107); CREATININE FOR GFR 0.77 MG/DL (0.55-1.30); GLOMERULAR FILTRATION RATE > 60.0 (>51); GLUCOSE, FASTING 142 MG/DL (70-100); POTASSIUM SERUM 3.6 MEQ/L (3.5-5.1); SODIUM LEVEL 143 MEQ/L (136-145)
[2021-04-10] MEDS: HEPARIN SOD (PORCINE) 5000UNITS/ML 1ML VIAL/SYRINGE SC SCH ×3 (05:15→20:48)
[2021-04-10] MEDS: SODIUM CHLORIDE 0.9% INJ 10 ML SYR IV SCH ×3 (05:15→21:27)
[2021-04-10] MEDS: NS 1,000 ML IV SCH ×3 (05:16→19:42)
[2021-04-10] MEDS: LEVOTHYROXINE 50MCG TABLET (0.05MG) PO SCH (05:26)
[2021-04-10] MEDS: predniSONE 20 MG TAB PO SCH (08:09)
[2021-04-10] MEDS ORDERED: VARIBAR NECTAR 40% w/v 240ML SUSP BTL As Ordered ONE (13:40)
[2021-04-10] MEDS ORDERED: VARIBAR PUDDING 40% w/v 230ML TUBE As Ordered ONE (13:40)
[2021-04-10] MEDS ORDERED: BARIUM SULFATE 700 MG TABLET (E-Z-DISK) As Ordered ONE (13:41)
[2021-04-10] MEDS ORDERED: E-Z-PAQUE 96% w/w SUSP 176GM BTL As Ordered ONE (13:41)
[2021-04-10] MEDS: NOREPINEPHRINE BITARTRATE 16 MG in D5W 484 ML IV SCH (13:45)
--- NOTE | 2021-04-10 13:58 | IPNPDOC ---
Text Note Date of Service The patient was seen on 04/10/21. NOTE SUBJECTIE: -Continues to be comfortable on room air -No chest pain, palpitations, dyspnea -Just came off Levophed at 8.30am, and holding MAPs >65 for now OBJECTIVE: VITAL SIGNS: see below GENERAL APPEARANCE: Chronically ill appearing, cachectic, in NAD HEENT: Normocephalic, atraumatic. Noninjected, anicteric sclera. No significant conjunctival pallor appreciated. Oral cavity: Edentulous. MMM. Neck: No lymphadenopathy. Trachea midline. CARDIOVASCULAR: RRR. Normal S1, S2. There is a 2/6 systolic murmur present. 2+ radial and posterior tibial pulses bilaterally. LUNGS: Breathing comfortably on room air, diminished/silent breath sounds over the right lung posteriorly. Does have some rhonchi throughout with faint crackles in the left mid and lower lung bases. Otherwise with symmetric chest expansion. ABDOMEN: Scaphoid abdomen. Normoactive bowel sounds throughout. Soft, nontender nondistended. There is no guarding or rigidity nor organomegaly appre ciated. Has L fem TLC in place. EXTREMITIES: All 4 extremities are thin. Bilateral lower extremities without pitting edema. NEUROLOGICAL: No gross focal neurologic deficits appreciated. Nondysarthric speech. Alert and oriented x3. PSYCHIATRIC: Somewhat exasperated mood at times during exam. Affect appears appropriate. LABORATORY DATA: WBC 29.5 Hgb 11.5 platelets 176 na 143 K 3.6 Cr 0.77 IMAGING: Portable chest x-ray, 04/09/2021 FINDINGS: Lungs: Improved aeration of the right lung which may reflect decreased right pleural effusion or decreased atelectasis. Residual right hilar mass with atelectasis or consolidation of the right upper lobe persists. Residual infiltrate and atelectasis remains in the right base. Pleural spaces: Question of right pleural effusion. Decreased left pleural effusion and decreased left base infiltrate or atelectasis. Heart/Mediastinum: Unremarkable. No gross cardiomegaly. Bones/joints: Unremarkable. IMPRESSION: 1. Resolution of left pleural effusion and left base infiltrate and atelectasis since 10/13/2020. 2. Improved aeration of the right lung which may reflect decreased atelectasis and/or right pleural effusion. Residual volume loss persists with question of right pleural effusion and right hilar mass with right upper lobe atelectasis. Some residual infiltrate and atelectasis persists within the aerated lung. CT abdomen pelvis without contrast, 04/09/2021 FINDINGS: Liver: Normal. No mass. Gallbladder and bile ducts: Question of layering sludge in the gallbladder. Pancreas: Normal. No ductal dilation. Spleen: Normal. No splenomegaly. Adrenal glands: Normal. No mass. Kidneys and ureters: Normal. No hydronephrosis. Stomach and bowel: Mild stool and gas throughout much of the colon. Minimal sigmoid diverticulosis without diverticulitis. Appendix: A normal appendix is seen. Intraperitoneal space: Unremarkable. No free air. No significant fluid collection. Vasculature: There is moderate atherosclerotic calcification of the abdominal aorta with extension into the iliac arteries. There is question of some stenosis of the distal aorta and proximal iliac arteries. Lymph nodes: Unremarkable. No enlarged lymph nodes. Urinary bladder: Unremarkable as visualized. Reproductive: Unremarkable as visualized. Bones/joints: Unremarkable. No acute fracture. Soft tissues: Unremarkable. IMPRESSION: 1. Question of minimal layering sludge in the gallbladder. 2. Minimal sigmoid diverticulosis without diverticulitis. 3. Atherosclerotic calcification of the aorta and proximal iliac arteries with question of some stenosis, particularly involving the distal aorta and right common iliac artery. 4. Otherwise negative CT abdomen/pelvis. CT chest without contrast, 04/09/2021 FINDINGS: Lungs: There is increased volume loss in the right hemithorax since the prior study with increased right base infiltrate and atelectasis of the remaining aerated lung. Right upper lobe atelectasis in the medial right apex. There is occlusion or severe narrowing or pruning of multiple right bronchi from the right mainstem bronchus and may reflect a central hilar mass. There is infiltrate and atelectasis or consolidation extending into the remaining aerated right lung. Pleural spaces: Small loculated fluid collection anteriorly which is decreased since a prior study. There is trace loculated fluid in the posterior right apex which is similar. There is resolution of left pleural effusion since the prior study. Heart: Unremarkable. No cardiomegaly. No pericardial effusion. Pulmonary arteries: The main pulmonary artery measures 19 mm. Aorta: The ascending thoracic aorta measures 25 mm. Lymph nodes: Unremarkable. No enlarged lymph nodes. Bones/joints: Unremarkable. No acute fracture. Soft tissues: Unremarkable. IMPRESSION: 1. Resolution of left pleural effusion and decreased loculated fluid in the anterior right hemithorax since 07/11/2020. Some residual fluid is noted anteriorly. Trace loculated fluid in the posterior left apex is similar. 2. Increased volume loss in the right hemithorax. There is severe pruning and obstruction of branches of the right bronchus which is increased since the prior study. There is persistent complete atelectasis of the right upper lobe and increased infiltrates and atelectasis in the remaining aerated right lung which has decreased volume. MICROBIOLOGY: Please see below. 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 #Septic shock - 2/2 PNA likely aspiration vs. post obstructive pneumonia i/s/o Rt-sided NSCLC and COPD: was febrile, hypotensive despite 2 L bolus NS, tachycardia, increased atelectasis and infiltrates of the right lung from prior and with leukocytosis -Continue empiric vancomycin/piptazo. Will dc vanc now that MRSA was negative -Resp panel was negative -f/u urine legionella and strep antigens -f/u sputum Cx -TLC placed in the left femoral vein, levophed off for now. -continue fluids NS at 125cc/hr Follow-up blood cultures -Sounds like she may have been having some aspiration, has difficulty clearing thick phlegm sometimes and had food stuck in her through. Is edentulous and eats regular consistency food --> will get swallow evaluation this mid PM, with likely barium swallow needed #Acute transient hypoxemia -Likely was 2/2 mucus vs/ food plugging given fast resolution of hypoxemia -Sounds like she may have been having some aspiration, has difficulty clearing thick phlegm sometimes and had food stuck in her through. Is edentulous and eats regular consistency food --> will get swallow evaluation this midPM, with likely barium swallow needed -Follows with Dr. Zepeda as outpatient for pulmonology -Home inhalers continued (Symbicort and albuterol) -Xopenex nebulizers ordered as needed in the setting of tachycardia -Oral daily prednisone ordered at 40mg PO -Incentive spirometry #Adenocarcinoma of the right lung -Currently follows with Dr. Meade of the cancer center and was seen most recently on 04/01 -She is status post chemo and radiation as well as 1 year of durvalumab #Hypothyroidism -Continue with home levothyroxine #DVT prophylaxis: Heparin subcu CODE STATUS: Full code Disposition: Admitted under inpatient status to ICU for septic shock. Plan is to discharge back home when medically improved. VS,Fishbone, I+O VS, Fishbone, I+O Laboratory Tests 04/10/21 04:00 Vital Signs Date Time Temp Pulse Resp B/P (MAP) Pulse Ox O2 Delivery O2 Flow Rate FiO2 04/10/21 09:30 86 92/57 (69) 97 Room Air 04/10/21 08:00 98.6 21 04/09/21 07:00 3.0 I&O- Last 24 Hours up to 6 AM 04/10/21 06:00 Intake Total 4471 ml Output Total 2350 ml Balance 2121 ml EDSON WAGNER MD Apr 10, 2021 10:24
--- NOTE | 2021-04-10 16:24 | REP ---
INDICATION: r/o aspirations. COMPARISON: None. TECHNIQUE: Procedure was performed under the direct supervision of Dr. Gamboa. The procedure was performed with Ashtyn Arias from speech pathology present. 5 cc aliquots of thin, pudding, mixed fruit and soft consistency barium was administered. 1.6 minutes of fluoroscopy time was utilized for this procedure. FINDINGS: With thin consistency barium, through a straw, there is laryngeal penetration. IMPRESSION: With thin consistency barium there is laryngeal penetration. A detailed report of this examination will be provided by speech pathology. <Electronically signed by Rodrigo Hernandez > 04/10/21 [id number] <Electronically signed by Ciro Gambao > 04/10/21 [id number]
[2021-04-11] VITALS: BP 90/53
[2021-04-11] MEDS ORDERED: HYDROMORPHONE HCL 0.5 MG/ 0.5 ML SYRINGE (J1170 PER 1) IV STA (00:10)
[2021-04-11] MEDS: IPRATROPIUM 0.5MG/ALBUTEROL 2.5MG INH SOL UD 3ML (DUONEB) NEB SCH ×3 (02:00→14:00)
[2021-04-11] MEDS: PIPERACILLIN/TAZOBACTAM SOD 3.375 GM in D5W MINI-BAG PLUS 50 ML IV SCH ×2 (05:29→10:36)
[2021-04-11] MEDS: SODIUM CHLORIDE 0.9% INJ 10 ML SYR IV SCH (05:29)
[2021-04-11] MEDS: LEVOTHYROXINE 50MCG TABLET (0.05MG) PO SCH (05:29)
[2021-04-11] MEDS: NS 1,000 ML IV SCH (05:29)
[2021-04-11] MEDS: HEPARIN SOD (PORCINE) 5000UNITS/ML 1ML VIAL/SYRINGE SC SCH ×2 (06:00→13:53)
[2021-04-11] MEDS ORDERED: NS 1,000 ML IV SCH (06:50)
[2021-04-11 07:00] VITALS: BP 106/59
[2021-04-11 08:00] VITALS: BP 103/60
--- NOTE | 2021-04-11 08:01 | REP ---
INDICATION: fluid overload COMPARISON: None. TECHNIQUE: Portable AP view of the chest FINDINGS: Near complete opacification of the right hemithorax increased from prior examination likely representing large pleural effusion and underlying airspace disease. Left basilar atelectasis and small left pleural reaction noted. Visualized portions of the mediastinum and cardiac silhouette are stable. No pneumothorax. Skeletal structures stable. IMPRESSION: 1. Increasing near complete opacity to the right hemithorax likely representing pleural effusion and airspace disease. 2. New trace left basilar atelectasis and small pleural reaction. <Electronically signed by Trevor Marshall > 04/11/21 [id number]
[2021-04-11 10:00] VITALS: BP 108/61
[2021-04-11] MEDS ORDERED: NEOSPORIN TOP OINT 15GM TOP ONE (10:00)
[2021-04-11] MEDS: predniSONE 20 MG TAB PO SCH (10:37)
--- NOTE | 2021-04-11 13:10 | IPNPDOC ---
Text Note Date of Service The patient was seen on 04/11/21. NOTE SUBJECTIE: -Continues to be comfortable on room air -No chest pain, palpitations, dyspnea OBJECTIVE: VITAL SIGNS: see below GENERAL APPEARANCE: Chronically ill appearing, cachectic, in NAD HEENT: Normocephalic, atraumatic. Noninjected, anicteric sclera. No significant conjunctival pallor appreciated. Oral cavity: Edentulous. MMM. Neck: No lymphadenopathy. Trachea midline. CARDIOVASCULAR: RRR. Normal S1, S2. There is a 2/6 systolic murmur present. 2+ radial and posterior tibial pulses bilaterally. LUNGS: Breathing comfortably on room air, diminished over the right lung posteriorly, does have rhonchi with crackles in the left mid and lower lung bases. ABDOMEN: Scaphoid abdomen. Normoactive bowel sounds throughout. Soft, nontender nondistended. There is no guarding or rigidity nor organomegaly appreciated. Has L fem TLC in place. EXTREMITIES: All 4 extremities are thin. Bilateral lower extremities without pitting edema. NEUROLOGICAL: No gross focal neurologic deficits appreciated. Nondysarthric sp eech. Alert and oriented x3. PSYCHIATRIC: Somewhat exasperated mood at times during exam. Affect appears appropriate. LABORATORY DATA: Reviewed. Pending AM labs IMAGING: Portable chest x-ray, 04/09/2021 FINDINGS: Lungs: Improved aeration of the right lung which may reflect decreased right pleural effusion or decreased atelectasis. Residual right hilar mass with atelectasis or consolidation of the right upper lobe persists. Residual infiltrate and atelectasis remains in the right base. Pleural spaces: Question of right pleural effusion. Decreased left pleural effusion and decreased left base infiltrate or atelectasis. Heart/Mediastinum: Unremarkable. No gross cardiomegaly. Bones/joints: Unremarkable. IMPRESSION: 1. Resolution of left pleural effusion and left base infiltrate and atelectasis since 10/13/2020. 2. Improved aeration of the right lung which may reflect decreased atelectasis and/or right pleural effusion. Residual volume loss persists with question of right pleural effusion and right hilar mass with right upper lobe atelectasis. Some residual infiltrate and atelectasis persists within the aerated lung. CT abdomen pelvis without contrast, 04/09/2021 FINDINGS: Liver: Normal. No mass. Gallbladder and bile ducts: Question of layering sludge in the gallbladder. Pancreas: Normal. No ductal dilation. Spleen: Normal. No splenomegaly. Adrenal glands: Normal. No mass. Kidneys and ureters: Normal. No hydronephrosis. Stomach and bowel: Mild stool and gas throughout much of the colon. Minimal sigmoid diverticulosis without diverticulitis. Appendix: A normal appendix is seen. Intraperitoneal space: Unremarkable. No free air. No significant fluid collection. Vasculature: There is moderate atherosclerotic calcification of the abdominal aorta with extension into the iliac arteries. There is question of some stenosis of the distal aorta and proximal iliac arteries. Lymph nodes: Unremarkable. No enlarged lymph nodes. Urinary bladder: Unremarkable as visualized. Reproductive: Unremarkable as visualized. Bones/joints: Unremarkable. No acute fracture. Soft tissues: Unremarkable. IMPRESSION: 1. Question of minimal layering sludge in the gallbladder. 2. Minimal sigmoid diverticulosis without diverticulitis. 3. Atherosclerotic calcification of the aorta and proximal iliac arteries with question of some stenosis, particularly involving the distal aorta and right common iliac artery. 4. Otherwise negative CT abdomen/pelvis. CT chest without contrast, 04/09/2021 FINDINGS: Lungs: There is increased volume loss in the right hemithorax since the prior study with increased right base infiltrate and atelectasis of the remaining aerated lung. Right upper lobe atelectasis in the medial right apex. There is occlusion or severe narrowing or pruning of multiple right bronchi from the right mainstem bronchus and may reflect a central hilar mass. There is infiltrate and atelectasis or consolidation extending into the remaining aerated right lung. Pleural spaces: Small loculated fluid collection anteriorly which is decreased since a prior study. There is trace loculated fluid in the posterior right apex which is similar. There is resolution of left pleural effusion since the prior study. Heart: Unremarkable. No cardiomegaly. No pericardial effusion. Pulmonary arteries: The main pulmonary artery measures 19 mm. Aorta: The ascending thoracic aorta measures 25 mm. Lymph nodes: Unremarkable. No enlarged lymph nodes. Bones/joints: Unremarkable. No acute fracture. Soft tissues: Unremarkable. IMPRESSION: 1. Resolution of left pleural effusion and decreased loculated fluid in the anterior right hemithorax since 07/11/2020. Some residual fluid is noted anteriorly. Trace loculated fluid in the posterior left apex is similar. 2. Increased volume loss in the right hemithorax. There is severe pruning and obstruction of branches of the right bronchus which is increased since the prior study. There is persistent complete atelectasis of the right upper lobe and increased infiltrates and atelectasis in the remaining aerated right lung which has decreased volume. MICROBIOLOGY: Please see below. 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 #Septic shock - Resolved. 2/2 PNA likely aspiration vs. post obstructive pneumonia i/s/o Rt-sided NSCLC and COPD: was febrile, hypotensive despite 2 L bolus NS, tachycardia, increased atelectasis and infiltrates of the right lung from prior and with leukocytosis -Discontinue empiric piptazo, will de-escalate to PO augmentin for likely aspiration PNA -MRSA PCR was negative -Resp panel was negative -f/u urine legionella and strep antigens -f/u sputum Cx -DC femoral TLC now that she is off levophed for >24h -Discontinue fluids Follow-up blood cultures -Sounds like she may have been having some aspiration, has difficulty clearing thick phlegm sometimes and had food stuck in her through. Is edentulous and eats regular consistency food --> will get swallow evaluation this mid PM, with likely barium swallow needed #Acute transient hypoxemia -Likely was 2/2 mucus vs/ food plugging given fast resolution of hypoxemia -Sounds like she may have been having some aspiration, has difficulty clearing thick phlegm sometimes and had food stuck in her through. Is edentulous and eats regular consistency food --> speech recommended level 2 thin liquids. -Follows with Dr. Zepeda as outpatient for pulmonology -Home inhalers continued (Symbicort and albuterol) -Xopenex nebulizers ordered as needed in the setting of tachycardia -Oral daily prednisone ordered at 40mg PO -Incentive spirometry #Adenocarcinoma of the right lung -Currently follows with Dr. Meade of the cancer center and was seen most recently on 04/01 -She is status post chemo and radiation as well as 1 year of durvalumab #Hypothyroidism -Continue with home levothyroxine #DVT prophylaxis: Heparin subcu CODE STATUS: Full code Disposition: Plan is to discharge back home, hopefully tomorrow. PT/OT. VS,Fishbone, I+O VS, Fishbone, I+O Vital Signs Date Time Temp Pulse Resp B/P (MAP) Pulse Ox O2 Delivery O2 Flow Rate FiO2 04/11/21 08:00 98.9 87 21 103/60 (74) 95 Room Air 04/09/21 07:00 3.0 I&O- Last 24 Hours up to 6 AM 04/11/21 06:00 Intake Total 3550 ml Output Total 675 ml Balance 2875 ml EDSON WAGNER MD Apr 11, 2021 08:50
[2021-04-11] MEDS ORDERED: AMOX875T2 PO (17:04)
--- NOTE | 2021-04-11 17:18 | DS.PDOC ---
Discharge Summary General Date of Admission Apr 09, 2021 at 04:22 Date of Discharge 04/11/2021 Attending Physician: EDSON WAGNER MD Discharge Summary PROCEDURES PERFORMED DURING STAY: Femoral TLC placed by Dr. Kay on 04/09 ADMITTING DIAGNOSES: Septic shock Aspiration PNA DISCHARGE DIAGNOSES: Septic shock 2/2 aspiration PNA Adenocarcinoma of the right upper lung first diagnosed in 2017 status post chemo and radiation as well as status post 1 year of immunotherapy (durvalumab) Dysphagia now on level 2 mechanical soft diet History of lung empyema status post drainage and full antibiotic course Radiation serositis of the lung, diagnosed in August 2019 Recurrent tonsillitis COPD Hypothyroidism COMPLICATIONS/CHIEF COMPLAINT: Malignant Cachexia, Pneumonia, Septic Shock. 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 The chills and dyspnea continued through yesterday morning (04/08) and comfort suresh had EMS called and was brought to the ED. HOSPITAL COURSE: When patient arrived in the ED, she was febrile with a maximum temperature of 102.3, tachycardic (HR running between [id number]) and hypotensive. When she did come in via EMS, she was wearing 3 L of supplemental oxygen and saturating in the upper 90s. Apparently per report, the patient was quite hypoxic on the scene and thus EMS added the supplemental oxygen. Initial lab work was remarkable for leukocytosis with absolute neutrophilia (WBC 24), elevated lactic acid of 3.5. Initial imaging showed increased volume loss in the right lung with increased infiltrate and atelectasis and obstruction of branches of the right bronchus that was significantly increased from prior imaging in September 2020. During work-up in the ED, patient did not respond to to 1 L normal saline boluses. Her blood pressure went down all the way to 64/37 at which point the ED provider contacted the on-call spinner iron (Dr. Kay) who placed a TLC in the left femoral vein and norepinephrine was subsequently started. Patient received 975 oral Tylenol which brought the fever down to 100.5. She received initial one-time doses of Zosyn and IV vancomycin and a MRSA PCR was obtained. 2 blood cultures were also ordered. She was admitted to the ICU and by day 2 morning her hypoxemia had resolved and she was on room air and was afebrile. She received more IV fluids with eventual discontinuation of levophed, resolution of lactic acidosis and beginning improvement in her leukocytosis. Given the high suspicion of aspiration given the fast resolution of her hypoxemia and respiratory distress, and patient report of feeling of food down her throat, she had a cookie swallow evaluation and recommendations were made for level two mechanical soft with thin liquids. Vanc was stopped after MRSA was negative and pip/tazo was eventually de-escalated to augmentin. My original goal was to discharge her home tomorrow after 24h on PO augmentin with noted continued reduction in her leukocytosis and hemodynamic stabilty and no fever, but patient insisted on being discharged home to see her daughter who is actually visiting home this we ekend from [place] and their visit was cut short due to ms. Elder's acute aspiration and illness. I have explained my preference to her but we eventually came to the understanding that I would treat her aggressive with a 2 week course of augmentin. Will place her on a probiotic as well and will have her call on Tuesday to her PCP to be seen within 7d for close follow up and follow up with her market research lead within 2 weeks. DISCHARGE MEDICATIONS: Please see below. ALLERGIES: Please see below. PHYSICAL EXAMINATION ON DISCHARGE: VITAL SIGNS: Please see below. VITAL SIGNS: see below GENERAL APPEARANCE: Chronically ill appearing, cachectic, in NAD HEENT: Normocephalic, atraumatic. Noninjected, anicteric sclera. No significant conjunctival pallor appreciated. Oral cavity: Edentulous. MMM. Neck: No lymphadenopathy. Trachea midline. CARDIOVASCULAR: RRR. Normal S1, S2. There is a 2/6 systolic murmur present. 2+ radial and posterior tibial pulses bilaterally. LUNGS: Breathing comfortably on room air, diminished over the right lung posteriorly, does have rhonchi with crackles in the left mid and lower lung bases. ABDOMEN: Scaphoid abdomen. Normoactive bowel sounds throughout. Soft, nontender nondistended. There is no guarding or rigidity nor organomegaly appreciated. Has L fem TLC in place. EXTREMITIES: All 4 extremities are thin. Bilateral lower extremities without pitting edema. NEUROLOGICAL: No gross focal neurologic deficits appreciated. Nondysarthric speech. Alert and oriented x3. PSYCHIATRIC: Somewhat exasperated mood at times during exam. Affect appears appropriate. LABORATORY DATA: Please see below. IMAGING: Portable chest x-ray, 04/09/2021 FINDINGS: Lungs: Improved aeration of the right lung which may reflect decreased right pleural effusion or decreased atelectasis. Residual right hilar mass with atelectasis or consolidation of the right upper lobe persists. Residual infiltrate and atelectasis remains in the right base. Pleural spaces: Question of right pleural effusion. Decreased left pleural effusion and decreased left base infiltrate or atelectasis. Heart/Mediastinum: Unremarkable. No gross cardiomegaly. Bones/joints: Unremarkable. IMPRESSION: 1. Resolution of left pleural effusion and left base infiltrate and atelectasis since 10/13/2020. 2. Improved aeration of the right lung which may reflect decreased atelectasis and/or right pleural effusion. Residual volume loss persists with question of right pleural effusion and right hilar mass with right upper lobe atelectasis. Some residual infiltrate and atelectasis persists within the aerated lung. CT abdomen pelvis without contrast, 04/09/2021 FINDINGS: Liver: Normal. No mass. Gallbladder and bile ducts: Question of layering sludge in the gallbladder. Pancreas: Normal. No ductal dilation. Spleen: Normal. No splenomegaly. Adrenal glands: Normal. No mass. Kidneys and ureters: Normal. No hydronephrosis. Stomach and bowel: Mild stool and gas throughout much of the colon. Minimal sigmoid diverticulosis without diverticulitis. Appendix: A normal appendix is seen. Intraperitoneal space: Unremarkable. No free air. No significant fluid collection. Vasculature: There is moderate atherosclerotic calcification of the abdominal aorta with extension into the iliac arteries. There is question of some stenosis of the distal aorta and proximal iliac arteries. Lymph nodes: Unremarkable. No enlarged lymph nodes. Urinary bladder: Unremarkable as visualized. Reproductive: Unremarkable as visualized. Bones/joints: Unremarkable. No acute fracture. Soft tissues: Unremarkable. IMPRESSION: 1. Question of minimal layering sludge in the gallbladder. 2. Minimal sigmoid diverticulosis without diverticulitis. 3. Atherosclerotic calcification of the aorta and proximal iliac arteries with question of some stenosis, particularly involving the distal aorta and right common iliac artery. 4. Otherwise negative CT abdomen/pelvis. CT chest without contrast, 04/09/2021 FINDINGS: Lungs: There is increased volume loss in the right hemithorax since the prior study with increased right base infiltrate and atelectasis of the remaining aerated lung. Right upper lobe atelectasis in the medial right apex. There is occlusion or severe narrowing or pruning of multiple right bronchi from the right mainstem bronchus and may reflect a central hilar mass. There is infiltrate and atelectasis or consolidation extending into the remaining aerated right lung. Pleural spaces: Small loculated fluid collection anteriorly which is decreased since a prior study. There is trace loculated fluid in the posterior right apex which is similar. There is resolution of left pleural effusion since the prior study. Heart: Unremarkable. No cardiomegaly. No pericardial effusion. Pulmonary arteries: The main pulmonary artery measures 19 mm. Aorta: The ascending thoracic aorta measures 25 mm. Lymph nodes: Unremarkable. No enlarged lymph nodes. Bones/joints: Unremarkable. No acute fracture. Soft tissues: Unremarkable. IMPRESSION: 1. Resolution of left pleural effusion and decreased loculated fluid in the anterior right hemithorax since 07/11/2020. Some residual fluid is noted anteriorly. Trace loculated fluid in the posterior left apex is similar. 2. Increased volume loss in the right hemithorax. There is severe pruning and obstruction of branches of the right bronchus which is increased since the prior study. There is persistent complete atelectasis of the right upper lobe and increased infiltrates and atelectasis in the remaining aerated right lung which has decreased volume. MICROBIOLOGY: Please see below. PROGNOSIS: Good ACTIVITY: As tolerated DIET: Level 2 mechanical soft with thin liquids DISCHARGE PLAN: Home, refused services. With 2w of augmentin, probiotic daily, PCP within 7d, pulm within 2w. DISPOSITION: home DISCHARGE INSTRUCTIONS: Home, refused services. With 2w of augmentin, probiotic daily, PCP within 7d, pulm within 2w. ITEMS TO FOLLOWUP ON ON OUTPATIENT: Aspiration PNA PCP Pulm Onc DISCHARGE CONDITION: Stable TIME SPENT ON DISCHARGE: 48 minutes. Vital Signs/I&Os Vital Signs Date Time Temp Pulse Resp B/P (MAP) Pulse Ox O2 Delivery O2 Flow Rate FiO2 04/11/21 10:00 83 18 108/61 (77) 97 Room Air 04/11/21 08:00 98.9 04/09/21 07:00 3.0 I&O- Last 24 Hours up to 6 AM 04/11/21 06:00 Intake Total 3550 ml Output Total 675 ml Balance 2875 ml Microbiology Microbiology 04/09/21 Respiratory Virus Panel (PCR) ([facility]) - Final, Complete 04/09/21 Blood Culture - Preliminary, Resulted No Growth after 48 hours. All Specime... 04/09/21 Blood Culture - Preliminary, Resulted No Growth after 48 hours. All Specime... Discharge Medications Scheduled Amoxicillin/Potassium Clav (Amox-Clav 875-125 mg Tablet) 1 Each Tablet, 875 MG PO BID Levothyroxine Sodium (Levothyroxine Sodium) 50 Mcg Tablet, 1 TAB PO DAILY Scheduled PRN Albuterol Sulfate (Proair Hfa) 8.5 Gm Hfa.aer.ad, 2 PUFF INH Q4H PRN for SOB/WHE EZING, (Reported) Budesonide/Formoterol (Symbicort 160-4.5 Mcg Inhaler) 6 Gm Hfa.aer.ad, 2 PUFF INH BID PRN for SOB/WHEEZING, (Reported) Codeine Phosphate/Guaifenesin (Guaiatussin AC Liquid) 5 Ml Liquid, 5 ML PO QHS PRN for COUGH, (Reported) Hydromorphone Hcl (Hydromorphone HCl) 1 Mg/1 Ml Liquid, 1 MG PO Q6H PRN for PAIN Allergies Coded Allergies: No Known Allergies (Unverified , 05/05/20) EDSON WAGNER MD Apr 11, 2021 17:18
[2021-04-11] MEDS ORDERED: PROBCAP2 PO (17:20)
[2021-04-11] MEDS ORDERED: LEVO50TA5 PO (17:43)
[2021-04-11] MEDS ORDERED: PRED10TA2 PO (17:58)
[2021-04-11] MEDS ORDERED: AUGMENTIN 875 MG TAB PO SCH (21:00)
[2021-04-13 17:07] LABS: BODY FLUID CULTURE Not indicated. (.); LEGIONELLA ANTIGEN URINE Negative (Negative); ORGANISM ID Not indicated. (.); SPECIMEN SOURCE Urine (.); URINE STREP PNEUMONIAE ANTIGEN Negative (Negative)
== END 2021-04-11 18:25 | disposition home or self-care (01) | DRG 720 ==
LOC: M ED 00:30 → M ED INP 04:22 → M PCU 18:36
PROVIDERS: ADMIT Internal Medicine; ATTEND Internal Medicine
PROC: 06HN33Z Insertion of Infusion Device into Left Femoral Vein, Percutaneous Approach (ICD-10-PCS; principal; 2021-04-09)
DX: A41.9 Sepsis, unspecified organism (principal); J69.0 Pneumonitis due to inhalation of food and vomit; R65.21 Severe sepsis with septic shock; E87.2 Acidosis; J44.1 Chronic obstructive pulmonary disease with (acute) exacerbation; C34.91 Malignant neoplasm of unspecified part of right bronchus or lung; Z92.21 Personal history of antineoplastic chemotherapy; Z92.3 Personal history of irradiation; E03.9 Hypothyroidism, unspecified; Z87.891 Personal history of nicotine dependence; Z79.899 Other long term (current) drug therapy; Z20.822 Contact with and (suspected) exposure to COVID-19

== ENCOUNTER → 2021-06-15 | Outpatient (REF) | payer OTHER ==
[~2021-06-15] MED LIST changes: +AMOX875T2 PO; -CEFD1CAP8 PO; +CEFD300C41 PO; -LEVO500T3; -LEVO500T3 PO; +LEVO500T4; +LEVO500T4 PO; +ONDA-84; +ONDA-84 PO; -ONDA8TAB10; -ONDA8TAB10 PO; +PROBCAP2 PO; -PROC10TA4; -PROC10TA4 PO; +PROC10TA5; +PROC10TA5 PO; +SILV1CRE60 TOP
== END ==
LOC: M LAB REF 14:18
PROVIDERS: ATTEND Internal Medicine Pulmonary Disease
DX: J18.9 Pneumonia, unspecified organism (principal)

== ENCOUNTER → 2021-08-31 | Outpatient (CLI) | payer OTHER ==
[~2021-08-31] MED LIST changes: +ULTR1TAB PO; -ULTR37.54 PO
== END ==
LOC: M RAD 11:03
PROVIDERS: ATTEND Internal Medicine Pulmonary Disease
DX: C34.11 Malignant neoplasm of upper lobe, right bronchus or lung (principal)

== ENCOUNTER → 2021-10-12 | Outpatient (CLI) | payer OTHER | LOC: M CARPUL 08:22 | PROVIDERS: ATTEND Internal Medicine Pulmonary Disease | DX: I31.3 Pericardial effusion (noninflammatory) (principal) ==

== ENCOUNTER → 2022-01-22 | Outpatient (CLI) | payer OTHER ==
[2022-01-22 13:17] LABS: BLOOD UREA NITROGEN 14 MG/DL (7-18); CREATININE FOR GFR 0.83 MG/DL (0.55-1.30); GLOMERULAR FILTRATION RATE > 60.0 (>51)
== END ==
LOC: M LAB 12:19
PROVIDERS: ATTEND Internal Medicine Pulmonary Disease
DX: C34.11 Malignant neoplasm of upper lobe, right bronchus or lung (principal); R91.8 Other nonspecific abnormal finding of lung field; I31.3 Pericardial effusion (noninflammatory)

== ENCOUNTER → 2022-03-22 | Outpatient (CLI) | payer OTHER ==
[~2022-03-22] MED LIST changes: +LEVO1TAB39; +LEVO1TAB39 PO; +LEVO1TAB40 PO; -LEVO500T4; -LEVO500T4 PO; -LEVO750T13 PO; +TRIA1CR80 TOP
== END ==
LOC: M RAD 15:40
PROVIDERS: ATTEND Internal Medicine Pulmonary Disease
DX: C34.11 Malignant neoplasm of upper lobe, right bronchus or lung (principal)

== ENCOUNTER → 2022-04-06 | Outpatient (CLI) | payer OTHER ==
[2022-04-06 10:34] LABS: BLOOD UREA NITROGEN 11 MG/DL (7-18); CREATININE FOR GFR 0.76 MG/DL (0.55-1.30); GLOMERULAR FILTRATION RATE > 60.0 (>51)
== END ==
LOC: M LAB 08:45
PROVIDERS: ATTEND Internal Medicine Pulmonary Disease
DX: J44.9 Chronic obstructive pulmonary disease, unspecified (principal)

== ENCOUNTER → 2022-09-01 | Outpatient (CLI) | payer OTHER ==
[~2022-09-01] MED LIST changes: +AUGM500T34 PO; +GUAI100S4; +GUAI100S4 PO; +ISOVUE-370 76% 100ML VIAL As Ordered ONE; +LEVO13CA PO; +LIDO15SO4 PO; -LIDO2SOL17 PO; +NYST-38; +NYST-38 SS; -NYST50SS; -NYST50SS SS; +PRED20TA PO
== END ==
LOC: M RAD 08:04
PROVIDERS: ATTEND Internal Medicine Medical Oncology
DX: C34.91 Malignant neoplasm of unspecified part of right bronchus or lung (principal)

== ENCOUNTER → 2022-09-10 | Outpatient (CLI) | payer OTHER ==
[~2022-09-10] MED LIST changes: -ISOVUE-370 76% 100ML VIAL As Ordered ONE; +LIDO15SO PO; -LIDO15SO4 PO
== END ==
LOC: M LAB 12:18
PROVIDERS: ATTEND Internal Medicine Pulmonary Disease
DX: R05.9 Cough, unspecified (principal)

== ENCOUNTER → 2022-10-11 | Outpatient (CLI) | payer OTHER | LOC: M PLARAD 12:05 | PROVIDERS: ATTEND Internal Medicine Medical Oncology | DX: C34.11 Malignant neoplasm of upper lobe, right bronchus or lung (principal); J84.10 Pulmonary fibrosis, unspecified; I31.39 Other pericardial effusion (noninflammatory) | CPT/HCPCS: 78815; A9552 ==

== ENCOUNTER → 2022-11-17 | Outpatient (CLI) | payer OTHER ==
[~2022-11-17] VITALS: Ht 149.9 cm; Wt 44.6 kg
[~2022-11-17] MED LIST changes: +GUAI100L6 PO; +MORP1SOL4 PO
[2022-11-17 09:31] VITALS: BP 110/79
== END ==
LOC: M PAL 09:05
PROVIDERS: ATTEND Nurse Practitioner Adult Health
DX: G89.3 Neoplasm related pain (acute) (chronic) (principal); Z85.118 Personal history of other malignant neoplasm of bronchus and lung; J44.9 Chronic obstructive pulmonary disease, unspecified; Z51.5 Encounter for palliative care; Z92.3 Personal history of irradiation; Z92.21 Personal history of antineoplastic chemotherapy; J70.1 Chronic and other pulmonary manifestations due to radiation; M25.511 Pain in right shoulder; R07.89 Other chest pain; W88.8XXS Exposure to other ionizing radiation, sequela; R06.02 Shortness of breath; R13.10 Dysphagia, unspecified; Z80.8 Family history of malignant neoplasm of other organs or systems; Z87.891 Personal history of nicotine dependence; Z79.51 Long term (current) use of inhaled steroids; Z79.890 Hormone replacement therapy; Z79.899 Other long term (current) drug therapy

== ENCOUNTER → 2022-11-17 | Outpatient (CLI) | payer OTHER | LOC: M RAD 11:08 | PROVIDERS: ATTEND Nurse Practitioner Adult Health | DX: R05.9 Cough, unspecified (principal); R09.89 Other specified symptoms and signs involving the circulatory and respiratory systems; R91.8 Other nonspecific abnormal finding of lung field ==

== ENCOUNTER → 2022-11-30 | Outpatient (CLI) | payer OTHER ==
[~2022-11-30] VITALS: Ht 149.9 cm; Wt 45.0 kg
[~2022-11-30] MED LIST changes: +SENN-186 PO
[2022-11-30 10:21] VITALS: BP 97/74; TEMP 96.8; O2SAT 98
== END ==
LOC: M PAL 10:08
PROVIDERS: ATTEND Nurse Practitioner Adult Health
DX: G89.3 Neoplasm related pain (acute) (chronic) (principal); Z85.118 Personal history of other malignant neoplasm of bronchus and lung; Z51.5 Encounter for palliative care; J44.9 Chronic obstructive pulmonary disease, unspecified; Z92.3 Personal history of irradiation; Z92.21 Personal history of antineoplastic chemotherapy; J70.1 Chronic and other pulmonary manifestations due to radiation; W88.8XXS Exposure to other ionizing radiation, sequela; M25.511 Pain in right shoulder; R07.89 Other chest pain; R13.10 Dysphagia, unspecified; Z80.8 Family history of malignant neoplasm of other organs or systems; Z87.891 Personal history of nicotine dependence; Z79.51 Long term (current) use of inhaled steroids; Z79.890 Hormone replacement therapy; Z79.899 Other long term (current) drug therapy

== ENCOUNTER → 2022-12-16 | Outpatient (CLI) | payer OTHER ==
[~2022-12-16] MED LIST changes: +E-Z-GAS II EFFERVESCENT PACKET (SODIUM BICARB./CITRIC ACID/SIMETHICONE) As Ordered ONE; +E-Z-HD 98% w/w 340GM SUSP BTL As Ordered ONE; +E-Z-PAQUE 96% w/w SUSP 176GM BTL As Ordered ONE
== END ==
LOC: M RAD 09:02
PROVIDERS: ATTEND General Practice
DX: K22.2 Esophageal obstruction (principal); C34.11 Malignant neoplasm of upper lobe, right bronchus or lung; K21.9 Gastro-esophageal reflux disease without esophagitis

== ENCOUNTER → 2023-02-15 | Outpatient (CLI) | payer OTHER ==
[~2023-02-15] VITALS: Ht 162.6 cm; Wt 45.0 kg
[~2023-02-15] MED LIST changes: +DIFL150T PO; -E-Z-GAS II EFFERVESCENT PACKET (SODIUM BICARB./CITRIC ACID/SIMETHICONE) As Ordered ONE; -E-Z-HD 98% w/w 340GM SUSP BTL As Ordered ONE; -E-Z-PAQUE 96% w/w SUSP 176GM BTL As Ordered ONE
[2023-02-15 13:36] VITALS: BP 107/78; O2SAT 95
== END ==
LOC: M PAL 13:21
PROVIDERS: ATTEND Nurse Practitioner Adult Health
DX: G89.3 Neoplasm related pain (acute) (chronic) (principal); Z51.5 Encounter for palliative care; J70.1 Chronic and other pulmonary manifestations due to radiation; J44.9 Chronic obstructive pulmonary disease, unspecified; M25.511 Pain in right shoulder; B35.0 Tinea barbae and tinea capitis; R06.02 Shortness of breath; R07.89 Other chest pain; R13.10 Dysphagia, unspecified; W88.8XXS Exposure to other ionizing radiation, sequela; Z85.118 Personal history of other malignant neoplasm of bronchus and lung; Z79.51 Long term (current) use of inhaled steroids; Z79.890 Hormone replacement therapy; Z79.891 Long term (current) use of opiate analgesic; Z79.899 Other long term (current) drug therapy; Z80.0 Family history of malignant neoplasm of digestive organs; Z80.49 Family history of malignant neoplasm of other genital organs; Z87.891 Personal history of nicotine dependence; Z92.21 Personal history of antineoplastic chemotherapy; Z92.29 Personal history of other drug therapy; Z92.3 Personal history of irradiation

== ENCOUNTER → 2023-04-19 | Outpatient (CLI) | payer OTHER ==
[~2023-04-19] VITALS: Ht 152.4 cm; Wt 44.5 kg
[~2023-04-19] MED LIST changes: -CEFD300C41 PO; +CEFD300C42 PO; +VENTAER INH
[2023-04-19 12:56] VITALS: BP 98/76; O2SAT 98
== END ==
LOC: M PAL 12:51
PROVIDERS: ATTEND Nurse Practitioner Adult Health
DX: G89.3 Neoplasm related pain (acute) (chronic) (principal); J44.9 Chronic obstructive pulmonary disease, unspecified; F43.20 Adjustment disorder, unspecified; M25.511 Pain in right shoulder; R06.02 Shortness of breath; Z51.5 Encounter for palliative care; J70.1 Chronic and other pulmonary manifestations due to radiation; R07.89 Other chest pain; R13.10 Dysphagia, unspecified; W88.8XXS Exposure to other ionizing radiation, sequela; Z85.118 Personal history of other malignant neoplasm of bronchus and lung; Z79.51 Long term (current) use of inhaled steroids; Z79.890 Hormone replacement therapy; Z79.891 Long term (current) use of opiate analgesic; Z79.899 Other long term (current) drug therapy; Z80.0 Family history of malignant neoplasm of digestive organs; Z80.49 Family history of malignant neoplasm of other genital organs; Z87.891 Personal history of nicotine dependence; Z92.21 Personal history of antineoplastic chemotherapy; Z92.29 Personal history of other drug therapy; Z92.3 Personal history of irradiation

== ENCOUNTER → 2023-04-19 | Outpatient (CLI) | payer OTHER | LOC: M RAD 13:50 | PROVIDERS: ATTEND Nurse Practitioner Adult Health | DX: J44.9 Chronic obstructive pulmonary disease, unspecified (principal); Z85.118 Personal history of other malignant neoplasm of bronchus and lung; Z92.21 Personal history of antineoplastic chemotherapy; Z92.3 Personal history of irradiation; R91.8 Other nonspecific abnormal finding of lung field ==

== ENCOUNTER → 2023-05-03 | Outpatient (CLI) | payer OTHER ==
[~2023-05-03] MED LIST changes: +ISOVUE-370 76% 100ML VIAL As Ordered ONE
== END ==
LOC: M RAD 08:48
PROVIDERS: ATTEND Internal Medicine Medical Oncology
DX: C34.90 Malignant neoplasm of unspecified part of unspecified bronchus or lung (principal); J90 Pleural effusion, not elsewhere classified; I77.1 Stricture of artery
CPT/HCPCS: 71260; Q9967

== ENCOUNTER → 2023-05-17 | Outpatient (CLI) | payer OTHER ==
[~2023-05-17] VITALS: Ht 149.9 cm; Wt 45.3 kg
[~2023-05-17] MED LIST changes: -ISOVUE-370 76% 100ML VIAL As Ordered ONE
[2023-05-17 13:10] VITALS: BP 113/78; O2SAT 97
[2023-05-17 14:33] VITALS: BP 110/76; O2SAT 96
== END ==
LOC: M PAL 13:00
PROVIDERS: ATTEND Nurse Practitioner Adult Health
DX: G89.3 Neoplasm related pain (acute) (chronic) (principal); J44.9 Chronic obstructive pulmonary disease, unspecified; F43.20 Adjustment disorder, unspecified; M25.511 Pain in right shoulder; R06.02 Shortness of breath; Z51.5 Encounter for palliative care; J70.1 Chronic and other pulmonary manifestations due to radiation; R07.89 Other chest pain; R13.10 Dysphagia, unspecified; I77.1 Stricture of artery; W88.8XXS Exposure to other ionizing radiation, sequela; Z85.118 Personal history of other malignant neoplasm of bronchus and lung; Z79.890 Hormone replacement therapy; Z79.891 Long term (current) use of opiate analgesic; Z79.899 Other long term (current) drug therapy; Z80.0 Family history of malignant neoplasm of digestive organs; Z80.49 Family history of malignant neoplasm of other genital organs; Z87.891 Personal history of nicotine dependence; Z92.21 Personal history of antineoplastic chemotherapy; Z92.29 Personal history of other drug therapy

== ENCOUNTER → 2023-06-13 | Outpatient (REF) | payer OTHER ==
[~2023-06-13] MED LIST changes: +CEFD1CAP9 PO; -CEFD300C42 PO
[2023-06-13 18:31] LABS: BLOOD UREA NITROGEN 13 MG/DL (9-23); CREATININE FOR GFR 0.63 MG/DL (0.55-1.30); GLOMERULAR FILTRATION RATE > 60.0 (>45)
== END ==
LOC: M LAB REF 16:49
PROVIDERS: ATTEND Internal Medicine Pulmonary Disease
DX: C34.11 Malignant neoplasm of upper lobe, right bronchus or lung (principal)

== ENCOUNTER → 2023-07-19 | Outpatient (CLI) | payer OTHER ==
[~2023-07-19] VITALS: Ht 149.9 cm; Wt 45.1 kg
[~2023-07-19] MED LIST changes: +BENZ150C2 PO
[2023-07-19 13:06] VITALS: BP 90/60; O2SAT 97
== END ==
LOC: M PAL 12:49
PROVIDERS: ATTEND Nurse Practitioner Adult Health
DX: G89.3 Neoplasm related pain (acute) (chronic) (principal); J44.9 Chronic obstructive pulmonary disease, unspecified; F43.20 Adjustment disorder, unspecified; M25.511 Pain in right shoulder; R06.02 Shortness of breath; Z51.5 Encounter for palliative care; J70.1 Chronic and other pulmonary manifestations due to radiation; R07.89 Other chest pain; R13.10 Dysphagia, unspecified; I77.1 Stricture of artery; W88.8XXS Exposure to other ionizing radiation, sequela; Z85.118 Personal history of other malignant neoplasm of bronchus and lung; Z79.891 Long term (current) use of opiate analgesic; Z79.890 Hormone replacement therapy; Z79.51 Long term (current) use of inhaled steroids; Z92.21 Personal history of antineoplastic chemotherapy; Z92.3 Personal history of irradiation; Z92.29 Personal history of other drug therapy; Z80.0 Family history of malignant neoplasm of digestive organs; Z80.49 Family history of malignant neoplasm of other genital organs; Z87.891 Personal history of nicotine dependence

== ENCOUNTER → 2023-08-17 | Outpatient (CLI) | payer OTHER ==
[~2023-08-17] MED LIST changes: +ADV100INH INH; +IPRA0.00 INH; +MORP10SO2 PO
== END ==
LOC: M PAL 10:41
PROVIDERS: ATTEND Nurse Practitioner Adult Health
DX: G89.3 Neoplasm related pain (acute) (chronic) (principal); J44.9 Chronic obstructive pulmonary disease, unspecified; F43.20 Adjustment disorder, unspecified; M25.511 Pain in right shoulder; R06.02 Shortness of breath; Z51.5 Encounter for palliative care; J70.1 Chronic and other pulmonary manifestations due to radiation; R07.89 Other chest pain; R13.10 Dysphagia, unspecified; I77.1 Stricture of artery; W88.8XXS Exposure to other ionizing radiation, sequela; Z79.51 Long term (current) use of inhaled steroids; Z79.891 Long term (current) use of opiate analgesic; Z79.890 Hormone replacement therapy; Z80.0 Family history of malignant neoplasm of digestive organs; Z80.49 Family history of malignant neoplasm of other genital organs; Z85.118 Personal history of other malignant neoplasm of bronchus and lung; Z87.891 Personal history of nicotine dependence; Z92.21 Personal history of antineoplastic chemotherapy; Z92.29 Personal history of other drug therapy; Z92.3 Personal history of irradiation

== ENCOUNTER 2023-08-18 18:34 | Emergency (ER) | payer OTHER ==
[~2023-08-18] VITALS: Ht 149.9 cm; Wt 44.5 kg
[~2023-08-18 18:34] MED LIST changes: -IPRA0.00 INH; -MORP10SO2 PO
[2023-08-18 19:15] VITALS: BP 119/78
[2023-08-18 19:42] LABS: VENOUS BASE EXCESS -1.7 (-2.0-2.0); VENOUS HCO3 24.6 MMOL/L (23.0-27.0); VENOUS O2 SATURATION 62.8 % (60.0-80.0); VENOUS PARTIAL PRESSURE CO2 47.7 mmHg (38.0-50.0); VENOUS PARTIAL PRESSURE O2 32.4 mmHg (30.0-50.0); VENOUS PH 7.331 UNITS (7.330-7.430); VENOUS STANDARD HCO3 22.1 MMOL/L; VENOUS TOTAL CO2 26.1 MMOL/L (24.0-28.0)
[2023-08-18 19:45] LABS: BASO # 0.1 10^3/uL (0.0-0.2); BASO % 0.4 % (0.0-1.0); EOS % 0.2 % (0.0-3.0); HEMATOCRIT 44.9 % (36.0-47.0); HEMOGLOBIN 14.8 g/dl (12.0-15.5); LYMPH # 0.5 10^3/uL (1.5-5.0); MEAN CORPUSCULAR HEMOGLOBIN 30.6 pg (27.0-33.0); MEAN CORPUSCULAR VOLUME 92.8 fl (80.0-96.0); MONO # 0.2 10^3/uL (0.0-0.8); MONO % 1.6 % (2.0-8.0); NEUTROPHILS # 12.2 10^3/uL (1.5-8.5); NEUTROPHILS % 93.3 % (36.0-66.0); PLATELET COUNT, AUTOMATED 149 10^3/uL (150-450); RED BLOOD COUNT 4.84 10^6/uL (4.00-5.40); WHITE BLOOD COUNT 13.1 10^3/uL (4.0-10.0)
[2023-08-18 20:00] VITALS: O2SAT 93
[2023-08-18 20:17] LABS: ALBUMIN 3.9 G/DL (3.2-5.2); ALKALINE PHOSPHATASE 114 U/L (46-116); ALT/SGPT 17 U/L (7.0-40); AST/SGOT 18 U/L (<34); BILIRUBIN,DIRECT 0.1 MG/DL (<0.4); BILIRUBIN,TOTAL 0.5 MG/DL (0.3-1.2); BLOOD UREA NITROGEN 18 MG/DL (9-23); CALCIUM LEVEL 9.4 MG/DL (8.3-10.6); CARBON DIOXIDE LEVEL 25 MMOL/L (20-31); CHLORIDE LEVEL 106 MMOL/L (98-107); CREATININE FOR GFR 0.68 MG/DL (0.55-1.30); GLOMERULAR FILTRATION RATE > 60.0 (>45); GLUCOSE, FASTING 156 MG/DL (74-106); SODIUM LEVEL 140 MMOL/L (136-145); TOTAL PROTEIN 7.4 G/DL (5.7-8.2)
[2023-08-18 20:19] LABS: THYROID STIMULATING HORMONE 2.352 uIU/ML (0.55-4.78)
[2023-08-18] MEDS ORDERED: ISOVUE-370 76% 100ML VIAL As Ordered ONE (20:19)
[2023-08-18] MEDS: AZITHROMYCIN 250MG TABLET PO ONE (21:32)
[2023-08-18] MEDS: cefTRIAXone SOD 1 GM in D5W MINI-BAG PLUS 50 ML IV ONE (21:32)
[2023-08-18] MEDS ORDERED: VENTAER INH (21:56)
[2023-08-18] MEDS ORDERED: HYDR1LIQ PO (21:56)
[2023-08-18] MEDS ORDERED: SYNT50TA PO (22:03)
[2023-08-18] MEDS ORDERED: MORP10SO2 PO (22:14)
[2023-08-18] MEDS ORDERED: LEVO13CA PO (22:14)
[2023-08-18] MEDS ORDERED: SENN-186 PO (22:24)
[2023-08-18] MEDS ORDERED: PRED10TA2 PO (22:24)
[2023-08-18] MEDS: LEVALBUTEROL 1.25MG 0.5ML CONCENTRATE NEB NEB ONE (22:28)
[2023-08-18] MEDS ORDERED: HOME MED LIST COMPLETE! XX SCH (22:35)
[2023-08-18] MEDS ORDERED: IPRA0.00 INH (23:08)
[2023-08-18] MEDS ORDERED: LEVO1TAB40 PO (23:08)
[2023-08-18] MEDS ORDERED: PRED20TA PO (23:08)
== END 2023-08-19 00:10 | disposition left against medical advice (07) ==
LOC: M ED 18:34 → EDBD 18:34 → M ED 08-19 00:10
DX: R09.02 Hypoxemia (principal); J18.9 Pneumonia, unspecified organism; E03.9 Hypothyroidism, unspecified; J44.9 Chronic obstructive pulmonary disease, unspecified; Z85.118 Personal history of other malignant neoplasm of bronchus and lung; Z79.51 Long term (current) use of inhaled steroids; Z79.899 Other long term (current) drug therapy; Z79.52 Long term (current) use of systemic steroids
CPT/HCPCS: 71045; 71275; 80048; 80076; 82803; 83605; 83880; 84443; 85025; 87040; 87486; 87581; 87633; 87798; 93005; 93041; 94760; 96365; 99285; J0696; Q9967

== ENCOUNTER → 2023-11-22 | Outpatient (CLI) | payer OTHER ==
[~2023-11-22] VITALS: Ht 149.9 cm; Wt 46.6 kg
[~2023-11-22] MED LIST changes: +ATRO0.063 INH; -BENZ150C2 PO; +BENZ150C5 PO; +IPRA0.00 INH; -LIDO15SO PO; +LIDO15SO8 PO; +MORP10SO2 PO; +SYNT25TA PO
[2023-11-22 13:07] VITALS: BP 100/76; O2SAT 98
== END ==
LOC: M PAL 12:55
PROVIDERS: ATTEND Nurse Practitioner Adult Health
DX: G89.3 Neoplasm related pain (acute) (chronic) (principal); J44.9 Chronic obstructive pulmonary disease, unspecified; F43.20 Adjustment disorder, unspecified; M25.511 Pain in right shoulder; R06.02 Shortness of breath; Z51.5 Encounter for palliative care; J70.1 Chronic and other pulmonary manifestations due to radiation; R07.89 Other chest pain; R13.10 Dysphagia, unspecified; I77.1 Stricture of artery; M54.31 Sciatica, right side; M54.32 Sciatica, left side; R53.81 Other malaise; Z85.118 Personal history of other malignant neoplasm of bronchus and lung; W88.8XXS Exposure to other ionizing radiation, sequela; Z79.52 Long term (current) use of systemic steroids; Z79.890 Hormone replacement therapy; Z79.891 Long term (current) use of opiate analgesic; Z79.899 Other long term (current) drug therapy; Z80.0 Family history of malignant neoplasm of digestive organs; Z80.49 Family history of malignant neoplasm of other genital organs; Z87.891 Personal history of nicotine dependence; Z92.21 Personal history of antineoplastic chemotherapy; Z92.29 Personal history of other drug therapy; Z92.3 Personal history of irradiation

== ENCOUNTER → 2024-01-24 | Outpatient (CLI) | payer OTHER ==
[~2024-01-24] VITALS: Ht 149.9 cm; Wt 45.9 kg
[2024-01-24 13:14] VITALS: BP 100/70; O2SAT 97
[2024-01-24 14:30] VITALS: O2SAT 85; O2SAT 96
[2024-01-24 14:31] VITALS: O2SAT 83; O2SAT 98
== END ==
LOC: M PAL 12:58
PROVIDERS: ATTEND Nurse Practitioner Adult Health
DX: G89.3 Neoplasm related pain (acute) (chronic) (principal); J44.9 Chronic obstructive pulmonary disease, unspecified; F43.20 Adjustment disorder, unspecified; M25.511 Pain in right shoulder; R06.02 Shortness of breath; Z51.5 Encounter for palliative care; J70.1 Chronic and other pulmonary manifestations due to radiation; R07.89 Other chest pain; R13.10 Dysphagia, unspecified; I77.1 Stricture of artery; R53.81 Other malaise; Z85.118 Personal history of other malignant neoplasm of bronchus and lung; W88.8XXS Exposure to other ionizing radiation, sequela; Z79.52 Long term (current) use of systemic steroids; Z79.890 Hormone replacement therapy; Z79.891 Long term (current) use of opiate analgesic; Z79.899 Other long term (current) drug therapy; Z80.0 Family history of malignant neoplasm of digestive organs; Z80.49 Family history of malignant neoplasm of other genital organs; Z87.891 Personal history of nicotine dependence; Z92.21 Personal history of antineoplastic chemotherapy; Z92.29 Personal history of other drug therapy; Z92.3 Personal history of irradiation

== ENCOUNTER → 2024-04-03 | Outpatient (CLI) | payer OTHER ==
[~2024-04-03] VITALS: Ht 149.9 cm; Wt 48.4 kg
[~2024-04-03] MED LIST changes: +LEVO75CA2 PO; +TOPI0.255 TOP
[2024-04-03 13:20] VITALS: BP 120/79; O2SAT 97
== END ==
LOC: M PAL 12:52
PROVIDERS: ATTEND Family Medicine
DX: C34.91 Malignant neoplasm of unspecified part of right bronchus or lung (principal); Z87.01 Personal history of pneumonia (recurrent); Z92.21 Personal history of antineoplastic chemotherapy; Z92.3 Personal history of irradiation; G89.3 Neoplasm related pain (acute) (chronic); Z51.5 Encounter for palliative care; Z79.890 Hormone replacement therapy; Z79.899 Other long term (current) drug therapy

== ENCOUNTER → 2024-06-05 | Outpatient (CLI) | payer OTHER ==
[~2024-06-05] VITALS: Ht 149.9 cm; Wt 48.4 kg
[~2024-06-05] MED LIST changes: -ADV100INH INH; -ADV250INH INH; +ADVA1AER8 INH; +ADVA1AER9 INH; +AUGM0.0511 TOP; -AZEL0.1S NARES; +AZEL137S8 NARES; +DESO0.254 TOP
[2024-06-05 13:11] VITALS: BP 100/60; O2SAT 97
== END ==
LOC: M PAL 12:41
PROVIDERS: ATTEND Nurse Practitioner Adult Health
DX: G89.3 Neoplasm related pain (acute) (chronic) (principal); C34.91 Malignant neoplasm of unspecified part of right bronchus or lung; F43.20 Adjustment disorder, unspecified; R06.09 Other forms of dyspnea; R13.10 Dysphagia, unspecified; R53.81 Other malaise; Z87.01 Personal history of pneumonia (recurrent); Z92.21 Personal history of antineoplastic chemotherapy; Z92.3 Personal history of irradiation; Z51.5 Encounter for palliative care; Z79.890 Hormone replacement therapy; Z79.891 Long term (current) use of opiate analgesic; Z79.899 Other long term (current) drug therapy; Z80.0 Family history of malignant neoplasm of digestive organs; Z80.49 Family history of malignant neoplasm of other genital organs; Z87.891 Personal history of nicotine dependence

== ENCOUNTER → 2024-07-10 | Outpatient (CLI) | payer OTHER ==
[~2024-07-10] VITALS: Ht 149.9 cm; Wt 48.1 kg
[~2024-07-10] MED LIST changes: +NYST100085 TOP
[2024-07-10 13:55] VITALS: BP 100/58; O2SAT 96
== END ==
LOC: M PAL 13:03
PROVIDERS: ATTEND Family Medicine
DX: Z51.5 Encounter for palliative care (principal); C34.91 Malignant neoplasm of unspecified part of right bronchus or lung; L21.9 Seborrheic dermatitis, unspecified; R52 Pain, unspecified; Z92.21 Personal history of antineoplastic chemotherapy; Z79.891 Long term (current) use of opiate analgesic; Z79.2 Long term (current) use of antibiotics; Z79.890 Hormone replacement therapy; Z79.899 Other long term (current) drug therapy

== ENCOUNTER → 2024-08-15 | Outpatient (CLI) | payer OTHER ==
[~2024-08-15] MED LIST changes: +ISOVUE-370 76% 100ML VIAL As Ordered ONE
== END ==
LOC: M RAD 10:28
PROVIDERS: ATTEND Internal Medicine Medical Oncology
DX: D50.9 Iron deficiency anemia, unspecified (principal); C34.90 Malignant neoplasm of unspecified part of unspecified bronchus or lung; K57.30 Diverticulosis of large intestine without perforation or abscess without bleeding; K22.89 Other specified disease of esophagus; J47.9 Bronchiectasis, uncomplicated; I70.0 Atherosclerosis of aorta; I25.10 Atherosclerotic heart disease of native coronary artery without angina pectoris; J90 Pleural effusion, not elsewhere classified
CPT/HCPCS: 71260; 74177; Q9967

== ENCOUNTER → 2024-09-10 | Outpatient (REF) | payer OTHER ==
[~2024-09-10] MED LIST changes: -ISOVUE-370 76% 100ML VIAL As Ordered ONE; -LEVO13CA PO; +LEVO13CA2 PO; -LEVO75CA2 PO; +LEVO75CA3 PO; +PRED-1142 PO; -PRED1TABL PO
== END ==
LOC: M LAB REF 20:04
PROVIDERS: ATTEND Internal Medicine Pulmonary Disease
DX: J44.9 Chronic obstructive pulmonary disease, unspecified (principal)

== ENCOUNTER → 2024-09-17 | Outpatient (CLI) | payer OTHER ==
[~2024-09-17] VITALS: Ht 149.9 cm; Wt 48.9 kg
[~2024-09-17] MED LIST changes: +LEVO13CA PO; -LEVO13CA2 PO; +LEVO75CA2 PO; -LEVO75CA3 PO; -PRED-1142 PO; +PRED1TABL PO
[2024-09-17 13:28] VITALS: BP 92/60; O2SAT 97
== END ==
LOC: M PAL 12:55
PROVIDERS: ATTEND Physician Assistant
DX: Z51.5 Encounter for palliative care (principal); C34.11 Malignant neoplasm of upper lobe, right bronchus or lung; Z92.3 Personal history of irradiation; Z92.21 Personal history of antineoplastic chemotherapy; Z79.891 Long term (current) use of opiate analgesic; R06.00 Dyspnea, unspecified; Z79.899 Other long term (current) drug therapy

== ENCOUNTER → 2024-10-01 | Outpatient (CLI) | payer OTHER | LOC: M PLARAD 11:56 | PROVIDERS: ATTEND Internal Medicine Medical Oncology | DX: C34.11 Malignant neoplasm of upper lobe, right bronchus or lung (principal) | CPT/HCPCS: 78815; A9552 ==

== ENCOUNTER → 2025-05-20 | Outpatient (REF) | payer OTHER ==
[~2025-05-20] MED LIST changes: -IBUP-1022 PO; -IBUP1TAB6 PO; +IBUP600T42 PO; -LEVO13CA PO; +LEVO13CA2 PO; -LEVO75CA2 PO; +LEVO75CA3 PO; +PRED-1142 PO; -PRED1TABL PO; +SFHIBU600 PO
== END ==
LOC: M SFHCDERM 10:36
PROVIDERS: ATTEND Nurse Practitioner Family
DX: R21 Rash and other nonspecific skin eruption (principal)

== ENCOUNTER 2025-06-14 05:38 | Emergency (ER) | payer OTHER ==
[~2025-06-14] VITALS: Ht 149.9 cm; Wt 50.8 kg
[2025-06-14] MEDS: MAG SULF 1GM/100ML (MAG RUN) 1 GM in IV 1 EA IV ONE (06:04)
[2025-06-14 06:09] LABS: VENOUS BASE EXCESS -5.2 (-2.0-2.0); VENOUS HCO3 20.4 MMOL/L (23.0-27.0); VENOUS O2 SATURATION 88.2 % (60.0-80.0); VENOUS PARTIAL PRESSURE CO2 40.3 mmHg (38.0-50.0); VENOUS PARTIAL PRESSURE O2 59.0 mmHg (30.0-50.0); VENOUS PH 7.323 UNITS (7.330-7.430); VENOUS STANDARD HCO3 20.0 MMOL/L; VENOUS TOTAL CO2 21.7 MMOL/L (24.0-28.0)
[2025-06-14] MEDS: LEVALBUTEROL 1.25 MG 0.5ML CONCENTRATE NEB NEB ONE (06:09)
[2025-06-14 06:48] LABS: ALT/SGPT 18 U/L (7.0-40); AST/SGOT 36 U/L (<34); CALCIUM LEVEL 9.1 MG/DL (8.3-10.6); CARBON DIOXIDE LEVEL 23 MMOL/L (20-31); CHLORIDE LEVEL 102 MMOL/L (98-107); CK-MB VALUE MASS 5.3 NG/ML (<3.6); CREATININE FOR GFR 0.76 MG/DL (0.55-1.30); GLOMERULAR FILTRATION RATE 88.5 (>45); POTASSIUM SERUM 4.4 MMOL/L (3.5-5.1); SODIUM LEVEL 139 MMOL/L (136-145)
[2025-06-14 06:49] LABS: BASO # 0.0 10^3/uL (0.0-0.2); BASO % 0.2 % (0.0-1.0); EOS # 0.0 10^3/uL (0.0-0.5); EOS % 0.0 % (0.0-3.0); LYMPH # 0.5 10^3/uL (1.5-5.0); LYMPH % 8.0 % (24.0-44.0); MONO # 0.2 10^3/uL (0.0-0.8); MONO % 3.5 % (2.0-8.0); NEUTROPHILS # 5.8 10^3/uL (1.5-8.5); NEUTROPHILS % 87.5 % (36.0-66.0); PLATELET COUNT, AUTOMATED 220 10^3/uL (150-450); THYROXINE (T4) 13.1 UG/DL (4.5-10.9)
[2025-06-14 06:51] LABS: CPK CREATINE PHOSPHOKINASE 415 U/L (34-145); MB/CK RELATIVE INDEX 1.27 (< OR =4)
[2025-06-14 08:33] LABS: ABG BASE EXCESS -1.5 (-2.0-2.0); ABG HCO3 22.4 MMOL/L (22.0-26.0); ABG O2 SATURATION 94.5 % (95.0-99.0); ABG PARTIAL PRESSURE CO2 35.2 mmHg (35.0-45.0); ABG PARTIAL PRESSURE O2 71.3 mmHg (75.0-100.0); ABG STANDARD HCO3 23.2 MMOL/L. (22.0-26.0); ABG TOTAL CO2 23.5 MMOL/L (23.0-31.0); ABG pH (ARTERIAL) 7.421 UNITS (7.350-7.450)
[2025-06-14] MEDS ORDERED: ISOVUE-370 76% 100 ML VIAL As Ordered ONE (09:32)
[2025-06-14] MEDS ORDERED: PRED10TA2 PO (10:42)
[2025-06-14 11:00] VITALS: BP 114/70; TEMP 98.1; O2SAT 89
== END 2025-06-14 11:19 | disposition home or self-care (01) ==
LOC: EDBD 05:38 → M ED 05:38
DX: J12.1 Respiratory syncytial virus pneumonia (principal); R09.02 Hypoxemia; E03.9 Hypothyroidism, unspecified; J44.9 Chronic obstructive pulmonary disease, unspecified; Z85.118 Personal history of other malignant neoplasm of bronchus and lung; Z79.899 Other long term (current) drug therapy
CPT/HCPCS: 36600; 71045; 71275; 80047; 80048; 80076; 82550; 82553; 82803; 83605; 83880; 84145; 84436; 84443; 84484; 85025; 87486; 87581; 87633; 87798; 93005; 93041; 94640; 94660; 94760; 96374; 96375; 99285; J2919; J3475; Q9967